=== PATIENT | female | born 1955 | race Caucasian/White ===

== ENCOUNTER 2017-04-28 16:38 | Inpatient (IN) | payer BC, OTHER ==
[~2017-04-28] VITALS: Ht 160 cm; Wt 71.2 kg
[~2017-04-28 16:38] MED LIST: ACHD5005 PO
--- OUTSIDE RECORDS SUMMARY | 2017-04-28 16:47 | XMS REPORT | Continuity of Care Document ---
Author Author [facility] Organization [facility] Address Unknown Phone Unavailable Allergies Active Description Code Type Severity Reaction Onset Reported/Identified Relationship to Patient Clinical Status Yes No Known Drug Allergies [id number] Drug Allergy Unknown N/ A 08/18/2012 Medications Problems Date Dx Coded Attending Type Code Diagnosis Diagnosed By 08/19/2012 Ot 813.44 08/19/2012 Ot 959.3 08/19/2012 Ot E000.8 08/19/2012 Ot E006.0 08/19/2012 Ot E006.2 08/19/2012 Ot E849.4 08/19/2012 Ot E885.1 07/27/2015 Ot 793.80 07/27/2015 Ot 793.80 07/27/2015 HERRERA STERLING DC Ot 722.4 07/27/2015 HERRERA STERLING DC Ot 722.51 09/05/2015 SANDY DO ETELVINA F Ot M17.11 09/05/2015 SANDY DO ETELVINA F Ot M25.461 09/05/2015 SANDY DO ETELVINA F Ot M25.561 12/20/2015 GLADIS GRIGGS MD Ot R06.02 SHORTNESS OF BREATH 12/20/2015 GLADIS GRIGGS MD Ot Z12.31 ENCNTR SCREEN MAMMOGRAM FOR MALIGNANT NE 12/20/2015 GLADIS GRIGGS MD Ot R06.02 SHORTNESS OF BREATH 12/20/2015 GLADIS GRIGGS MD Ot Z12.31 ENCNTR SCREEN MAMMOGRAM FOR MALIGNANT NE 12/25/2015 GLADIS GRIGGS MD Ot R06.02 SHORTNESS OF BREATH 12/25/2015 GLADIS GRIGGS MD Ot Z12.31 ENCNTR SCREEN MAMMOGRAM FOR MALIGNANT NE 02/01/2016 GLADIS GRIGGS MD Ot R06.02 SHORTNESS OF BREATH 02/01/2016 GLADIS GRIGGS MD, Ot Z12.31 ENCNTR SCREEN MAMMOGRAM FOR MALIGNANT NE Procedures Results Encounters ACCT No. Visit Date/Time Discharge Status Pt. Type Provider Facility Loc./Unit Complaint [id number] 12/19/2015 08:22:00 2015 23:59:59 CLS Outpatient GLADIS GRIGGS MD [facility] RAD SCREENING [id number] 07/27/2015 15:20:00 2015 23:59:59 CLS Outpatient ETELVINA DELGADO DO [facility] RAD [id number] 03/30/2015 16:32:00 2014 23:59:59 CLS Outpatient JANES CAMERON [facility] QUICK [id number] 03/30/2014 16:48:00 2013 23:59:59 CLS Outpatient HERRERA STERLING DC [facility] RAD [id number] 10/05/2012 08:43:00 2012 23:59:59 CLS Outpatient [id number] 04/28/2017 16:40:00 ACT Emergency DUDLEY SCHUMACHER APRN [facility] ER ABDOMINAL CRAMPING,BLOOD IN STOOL [id number] 07/27/2015 15:19:00 Document Registration [id number] 07/27/2015 15:19:00 Document Registration [id number] 08/18/2012 20:55:00 Document Registration [id number] 02/03/2011 15:17:00 Document Registration [id number] 07/30/2010 14:26:00 Document Registration
--- NOTE | 2017-04-28 16:54 | ED Abdominal Pain ---
General Chief Complaint: Abdominal/GI Problems Stated Complaint: ABDOMINAL CRAMPING,BLOOD IN STOOL Source of Information: Patient Exam Limitations: No Limitations History of Present Illness Time Seen By Provider: 16:52 Initial Comments To ER with reports of lower abdominal cramping midline and left lower. She's also had blood in her stools for the past 3 days. She's never had this before. No history of diverticulosis or diverticulitis. She's had nausea but no vomiting. She saw her primary care provider Dr. Griggs yesterday. Blood work. She states that her white blood cell count was "22". She was started on Zofran for nausea. Pain persists today. No fevers. Timing/Duration: 2-3 Days Severity/Quality: Cramping Location: LLQ, Suprapubic Radiation: No Radiation Activities at Onset: None Allergies and Home Medications Allergies Coded Allergies: No Known Drug Allergies (Unverified , 08/18/12) Home Medications Ciprofloxacin HCl 500 Mg Tablet, 500 MG PO BID for 7 Days, #14 Prescribed by: GLADIS GRIGGS on 04/30/17 0723 Cyclosporine 1 Each Droperette, 1 DROP OU BID, (Reported) Enalapril Maleate 20 Mg Tablet, 20 MG PO DAILY, (Reported) Ibuprofen 200 Mg Tablet, 800 MG PO TID PRN for PAIN-MILD, (Reported) TAKES 4 (200MG) TABLETS Metronidazole 500 Mg Tablet, 500 MG PO BID, #14 Prescribed by: GLADIS GRIGGS on 04/30/17 0723 Ondansetron HCl 4 Mg Tablet, 4 MG PO Q4H PRN for NAUSEA/VOMITING-1ST LINE, ( Reported) Triamcinolone Acet 15 Gm Cr, TOP BID PRN for DRY SKIN, (Reported) Review of Systems Constitutional: see HPI EENTM: No Symptoms Reported Respiratory: No Symptoms Reported Cardiovascular: No Symptoms Reported Gastrointestinal: See HPI, Abdominal Pain, Nausea, Rectal Bleeding Genitourinary: No Symptoms Reported Musculoskeletal: see HPI Skin: no symptoms reported Psychiatric/Neurological: No Symptoms Reported Endocrine: No Symptoms Reported Hematologic/Lymphatic: No Symptoms Reported Past Milvuvv-Ngchyy-Oiggou Hx Patient Social History Alcohol Use: Occasionally Uses Recreational Drug Use: No Smoking Status: Current Everyday Smoker Recent Foreign Travel: No Contact w/Someone Who Travel: No Immunizations Up To Date Tetanus Booster (TDap): More than 5yrs 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 System Hx 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 Disorders: No Sexually Transmitted Disease: No HIV/AIDS: No Female 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 Disorders: 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 Adverse Reaction to a Blood Tr: No Family Medical History Significant Family History: No Pertinent Family Hx Physical Exam Vital Signs VS - Last 72 Hours, by Label 04/28/17 16:42 Temp 99.9 Pulse 92 Resp 18 B/P (MAP) 154/49 Pulse Ox 96 O2 Delivery Room Air Capillary Refill : General Appearance: WD/WN, no apparent distress HEENT: PERRL/EOMI, normal ENT inspection Neck: non-tender, full range of motion Respiratory: no respiratory distress, no accessory muscle use Gastrointestinal: normal bowel sounds, soft, tenderness, other Neurologic/Psychiatric: alert, normal mood/affect, oriented x 3 Skin: normal color, warm/dry Progress/Results/Core Measures Results/Orders Lab Results Laboratory Tests Test 04/28/17 16:48 Range/Units White Blood Count 21.1 H 4.3-11.0 10^3/uL Red Blood Count 4.70 4.35-5.85 10^6/uL Hemoglobin 15.7 11.5-16.0 G/DL Hematocrit 47 35-52 % Mean Corpuscular Volume 99 80-99 FL Mean Corpuscular Hemoglobin 33 25-34 PG Mean Corpuscular Hemoglobin Concent 34 32-36 G/DL Red Cell Distribution Width 13.6 10.0-14.5 % Platelet Count 286 130-400 10^3/uL Mean Platelet Volume 9.8 7.4-10.4 FL Neutrophils (%) (Auto) 83 H 42-75 % Lymphocytes (%) (Auto) 11 L 12-44 % Monocytes (%) (Auto) 5 0-12 % Eosinophils (%) (Auto) 1 0-10 % Basophils (%) (Auto) 0 0-10 % Neutrophils # (Auto) 17.5 H 1.8-7.8 X 10^3 Lymphocytes # (Auto) 2.2 1.0-4.0 X 10^3 Monocytes # (Auto) 1.1 H 0.0-1.0 X 10^3 Eosinophils # (Auto) 0.2 0.0-0.3 10^3/uL Basophils # (Auto) 0.1 0.0-0.1 10^3/uL Neutrophils % (Manual) 84 % Lymphocytes % (Manual) 14 % Monocytes % (Manual) 1 % Eosinophils % (Manual) 1 % Basophils % (Manual) 0 % Band Neutrophils 0 % Blood Morphology Comment NORMAL Sodium Level 141 135-145 MMOL/L Potassium Level 3.8 3.6-5.0 MMOL/L Chloride Level 103 98-107 MMOL/L Carbon Dioxide Level 27 21-32 MMOL/L Anion Gap 11 5-14 MMOL/L Blood Urea Nitrogen 18 7-18 MG/DL Creatinine 0.80 0.60-1.30 MG/DL Estimat Glomerular Filtration Rate > 60 BUN/Creatinine Ratio 23 Glucose Level 109 H 70-105 MG/DL Calcium Level 9.4 8.5-10.1 MG/DL Total Bilirubin 0.8 0.1-1.0 MG/DL Aspartate Amino Transf (AST/SGOT) 14 5-34 U/L Alanine Aminotransferase (ALT/SGPT) 14 0-55 U/L Alkaline Phosphatase 74 40-136 U/L Total Protein 6.9 6.4-8.2 GM/DL Albumin 4.0 3.2-4.5 GM/DL My Orders Orders - DUDLEY SCHUMACHER APRN Cbc With Automated Diff (04/28/17 16:41) Comprehensive Metabolic Panel (04/28/17 16:41) Ct Abdomen/Pelvis W (04/28/17 16:41) Saline Lock/Iv-Start (04/28/17 16:41) Fentanyl Injection (Sublimaze Injection (04/28/17 17:00) Ondansetron Injection (Zofran Injectio (04/28/17 17:00) Ns Iv 1000 Ml (Sodium Chloride 0.9%) (04/28/17 17:00) Iohexol Injection (Omnipaque 350 Mg/Ml 1 (04/28/17 17:00) Ns (Ivpb) (Sodium Chloride 0.9% Ivpb Bag (04/28/17 17:00) Pharmacy Communication (Pharmacy Communi (04/28/17 16:54) Manual Differential (04/28/17 16:48) Medications Given in ED Vital Signs/I&O Vital Sign - Last 12Hours 04/28/17 16:42 Temp 99.9 Pulse 92 Resp 18 B/P (MAP) 154/49 Pulse Ox 96 O2 Delivery Room Air Departure Communication (Admissions) Time/Spoke to Admitting Phy: 19:32 Communication I discussed the case with Dr. Griggs. We will admit since she is nauseated and cannot tolerate oral antibiotics, IV fluids, Impression Impression: Primary Impression: Colitis Additional Impressions: Hematochezia Leukocytosis Disposition: ADMITTED INPATIENT Condition: Stable Admissions Decision to Admit Reason: Admit from ER (General) Decision to Admit/Date: Apr 28, 2017 Time/Decision to Admit Time: 19:32 Departure-Patient Inst. Referrals: GLADIS GRIGGS MD (PCP/Family) Primary Care Physician Scripts Metronidazole (Metronidazole) 500 Mg Tablet 500 MG PO BID, #14 TAB Prov: GLADIS GRIGGS MD 04/30/17 Ciprofloxacin HCl (Ciprofloxacin HCl) 500 Mg Tablet 500 MG PO BID for 7 Days, #14 TAB Prov: GLADIS GRIGGS MD 04/30/17 DUDLEY SCHUMACHER APRN Apr 28, 2017 16:54
[2017-04-28 16:58] LABS: BASOPHILS # (AUTO) 0.1 10^3/uL (0.0-0.1); BASOPHILS % (AUTO) 0 % (0-10); EOSINOPHILS # (AUTO) 0.2 10^3/uL (0.0-0.3); EOSINOPHILS % (AUTO) 1 % (0-10); LYMPHOCYTES # (AUTO) 2.2 X 10^3 (1.0-4.0); LYMPHOCYTES % (AUTO) 11 % (12-44); MEAN CORPUSCULAR HEMOGLOBIN 33 PG (25-34); MEAN CORPUSCULAR HGB CONC 34 G/DL (32-36); MEAN CORPUSCULAR VOLUME 99 FL (80-99); MEAN PLATELET VOLUME 9.8 FL (7.4-10.4); MONOCYTES # (AUTO) 1.1 X 10^3 (0.0-1.0); MONOCYTES % (AUTO) 5 % (0-12); NEUTROPHILS # (AUTO) 17.5 X 10^3 (1.8-7.8); NEUTROPHILS % (AUTO) 83 % (42-75); PLATELET COUNT 286 10^3/uL (130-400); RED CELL DISTRIBUTION WIDTH 13.6 % (10.0-14.5); WHITE BLOOD COUNT 21.1 10^3/uL (4.3-11.0)
[2017-04-28] MEDS ORDERED: ONDANSETRON 4 MG/2 ML (SDV) Z0FRAN IVP ONE (17:00)
[2017-04-28] MEDS ORDERED: fentaNYL INJECTION 100 MCG/2 ML AMP IVP ONE (17:00)
[2017-04-28] MEDS ORDERED: NS 100 ML (IVPB) BAG IV ONE (17:00)
[2017-04-28] MEDS ORDERED: NS IV 1000 ML 1,000 ML IV SCH (17:00)
[2017-04-28] MEDS ORDERED: IOHEXOL 350 MG/ML 100 ML (OMNIPAQUE 350) VIAL IV ONE (17:00)
[2017-04-28] MEDS ORDERED: ENAL20TA PO (17:05)
[2017-04-28] MEDS ORDERED: ONDA4TAB10 PO (17:05)
[2017-04-28 17:14] LABS: BAND NEUTROPHILS 0 %; BASOPHILS % (MANUAL) 0 %; EOSINOPHILS % (MANUAL) 1 %; LYMPHOCYTES % (MANUAL) 14 %; NEUTROPHILS % (MANUAL) 84 %
[2017-04-28 17:36] LABS: ALANINE AMINOTRANSFERASE 14 U/L (0-55); ANION GAP 11 MMOL/L (5-14); ASPARTATE AMINO TRANSFERASE 14 U/L (5-34); BILIRUBIN,TOTAL 0.8 MG/DL (0.1-1.0); BLOOD UREA NITROGEN 18 MG/DL (7-18); BUN/CREATININE RATIO 23; CALCIUM 9.4 MG/DL (8.5-10.1); CARBON DIOXIDE 27 MMOL/L (21-32); CHLORIDE 103 MMOL/L (98-107); GFR ESTIMATED > 60; GLUCOSE 109 MG/DL (70-105); POTASSIUM 3.8 MMOL/L (3.6-5.0); SODIUM 141 MMOL/L (135-145); TOTAL PROTEIN 6.9 GM/DL (6.4-8.2)
--- NOTE | 2017-04-28 19:11 | Diagnostic Imaging Report ---
PROCEDURE: CT abdomen and pelvis with contrast. TECHNIQUE: Multiple contiguous axial images were obtained through the abdomen and pelvis after administration of intravenous contrast. INDICATION: Abdominal cramping, nausea, vomiting, diarrhea and fever for 2 days, blood in the bowel, no history of cancer. COMPARISON STUDIES: None. FINDINGS: The lung bases are clear. Small cyst is present in the liver. There is questionable thickening of the distal esophagus versus a small collapsed hiatal hernia. Liver is slightly inhomogeneous consistent with some fatty infiltration. The pancreas, spleen, adrenal glands and kidneys appear normal. Sort of IUD is present within the uterus. Marked bowel wall thickening is seen in the distal two-thirds of the transverse colon and in the descending colon just to the sigmoid colon. Surrounding inflammatory changes are present. Small amount of ascites is present. Most of this is seen dependently within the pelvis. No free air or loculated fluid collections are present. There is no intramural air. IMPRESSION: 1. There is marked bowel wall thickening of the transverse and descending colon. Surrounding inflammation is present. Findings are consistent with nonspecific colitis. This could be infectious or inflammatory. 2. There is some asymmetric thickening at the gastroesophageal junction, possibly a mass versus collapsed hiatal hernia. Recommend elective endoscopy. 3. Metallic body is present in the uterus. This is probably a type of IUD which I am not familiar with. Dictated by: Dictated on workstation # [id number]
[2017-04-28] MEDS ORDERED: ACETAMINOPHEN 500 MG TAB (TYLENOL) PO ONE (19:45)
[2017-04-28 20:10] VITALS: BP 132/86
[2017-04-28] MEDS ORDERED: CATHETER FLUSH 10 ML SYR IV PRN (20:30)
[2017-04-28] MEDS: NS W/KCL 20 MEQ/L 1,000 ML IV SCH (20:52)
[2017-04-28] MEDS: CIPROFLOXACIN 400 MG/D5W 200 ML (PRE-MIX) IV SCH (20:53)
--- NOTE | 2017-04-28 21:03 | History & Physicial ---
History of Present Illness History of Present Illness Reason for visit/HPI 62-year-old female presents to [facility] emergency department during the late afternoon of April 28, 2017 with diarrhea and just not feeling well. Patient was seen the day before in the office and had complained of having some blood noted from her stool. She was given Zofran at that time and she reports throughout the next 24 hours a Zofran was not that helpful. She is very weak and is not taking in any solids or liquids over the past 12 hours. Date of Admission Apr 28, 2017 at 19:25 Date Seen by Provider: Apr 28, 2017 Time Seen by Provider: 21:00 I consulted on this patient on 04/28/17 21:01 Attending Physician Zna Griggs MD Admitting Physician Zan Griggs MD Consult Allergies and Home Medications Allergies Coded Allergies: No Known Drug Allergies (Unverified , 08/18/12) Home Medications Enalapril Maleate 20 Mg Tablet, (Reported) Hydrocodone Bit/Acetaminophen 1 Each Tablet, 1-2 EACH PO Q6H PRN, #24 Ref 0 Prescribed by: JASON HAINES on 08/19/12 0037 Ondansetron HCl 4 Mg Tablet, (Reported) Past Tyrxhqf-Nhfxfk-Jaoasa Hx Patient Social History Alcohol Use: Occasionally Uses Recreational Drug Use: No Smoking Status: Current Everyday Smoker Recent Foreign Travel: No Contact w/other who traveled: No Recent Infectious Disease Expo: No Immunizations Up To Date Tetanus Booster (TDap): More than 5yrs Surgeries Yes (l knee, I/D) Respiratory No Cardiovascular Yes Hypertension Neurological No 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 System Hx 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 Disorders: No Sexually Transmitted Disease: No HIV/AIDS: No 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 Gastrointestinal No Musculoskeletal No Endocrine History of Endocrine Disorders: No Cancer No Psychosocial History of Psychiatric Problem: No Blood Transfusions History of Blood Disorders: No Adverse Reaction to a Blood Tr: No Family Medical History Significant Family History: No Pertinent Family Hx Constitutional: see HPI Physical Exam Vital Signs Vital Sign - Last 12Hours 04/28/17 16:42 Temp 99.9 Pulse 92 Resp 18 B/P (MAP) 154/49 Pulse Ox 96 O2 Delivery Room Air Capillary Refill : Less Than 3 Seconds General Appearance: No Apparent Distress, Mild Distress Eyes: Bilateral Eye Normal Inspection HEENT: Moist Mucous Membranes Respiratory: Lungs Clear Cardiovascular: Regular Rate, Rhythm Gastrointestinal: Normal Bowel Sounds, No Organomegaly, No Pulsatile Mass, Non Tender, Soft Rectal: Deferred Back: Normal Inspection Skin: Normal Color Comments Laboratory Tests Test 04/28/17 16:48 Range/Units White Blood Count 21.1 H 4.3-11.0 10^3/uL Red Blood Count 4.70 4.35-5.85 10^6/uL Hemoglobin 15.7 11.5-16.0 G/DL Hematocrit 47 35-52 % Mean Corpuscular Volume 99 80-99 FL Mean Corpuscular Hemoglobin 33 25-34 PG Mean Corpuscular Hemoglobin Concent 34 32-36 G/DL Red Cell Distribution Width 13.6 10.0-14.5 % Platelet Count 286 130-400 10^3/uL Mean Platelet Volume 9.8 7.4-10.4 FL Neutrophils (%) (Auto) 83 H 42-75 % Lymphocytes (%) (Auto) 11 L 12-44 % Monocytes (%) (Auto) 5 0-12 % Eosinophils (%) (Auto) 1 0-10 % Basophils (%) (Auto) 0 0-10 % Neutrophils # (Auto) 17.5 H 1.8-7.8 X 10^3 Lymphocytes # (Auto) 2.2 1.0-4.0 X 10^3 Monocytes # (Auto) 1.1 H 0.0-1.0 X 10^3 Eosinophils # (Auto) 0.2 0.0-0.3 10^3/uL Basophils # (Auto) 0.1 0.0-0.1 10^3/uL Neutrophils % (Manual) 84 % Lymphocytes % (Manual) 14 % Monocytes % (Manual) 1 % Eosinophils % (Manual) 1 % Basophils % (Manual) 0 % Band Neutrophils 0 % Blood Morphology Comment NORMAL Sodium Level 141 135-145 MMOL/L Potassium Level 3.8 3.6-5.0 MMOL/L Chloride Level 103 98-107 MMOL/L Carbon Dioxide Level 27 21-32 MMOL/L Anion Gap 11 5-14 MMOL/L Blood Urea Nitrogen 18 7-18 MG/DL Creatinine 0.80 0.60-1.30 MG/DL Estimat Glomerular Filtration Rate > 60 BUN/Creatinine Ratio 23 Glucose Level 109 H 70-105 MG/DL Calcium Level 9.4 8.5-10.1 MG/DL Total Bilirubin 0.8 0.1-1.0 MG/DL Aspartate Amino Transf (AST/SGOT) 14 5-34 U/L Alanine Aminotransferase (ALT/SGPT) 14 0-55 U/L Alkaline Phosphatase 74 40-136 U/L Total Protein 6.9 6.4-8.2 GM/DL Albumin 4.0 3.2-4.5 GM/DL NAME: RICKY SIEGEL [facility] REC#: [id number] PT STATUS: REG ER : 1955 PHYSICIAN: DUDLEY SCHUMACHER [employer]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 TECHNIQUE: Multiple contiguous axial images were obtained through the abdomen and pelvis after administration of intravenous contrast. INDICATION: Abdominal cramping, nausea, vomiting, diarrhea and fever for 2 days, blood in the bowel, no history of cancer. COMPARISON STUDIES: None. FINDINGS: The lung bases are clear. Small cyst is present in the liver. There is questionable thickening of the distal esophagus versus a small collapsed hiatal hernia. Liver is slightly inhomogeneous consistent with some fatty infiltration. The pancreas, spleen, adrenal glands and kidneys appear normal. Sort of IUD is present within the uterus. Marked bowel wall thickening is seen in the distal two-thirds of the transverse colon and in the descending colon just to the sigmoid colon. Surrounding inflammatory changes are present. Small amount of ascites is present. Most of this is seen dependently within the pelvis. No free air or loculated fluid collections are present. There is no intramural air. IMPRESSION: 1. There is marked bowel wall thickening of the transverse and descending colon. Surrounding inflammation is present. Findings are consistent with nonspecific colitis. This could be infectious or inflammatory. 2. There is some asymmetric thickening at the gastroesophageal junction, possibly a mass versus collapsed hiatal hernia. Recommend elective endoscopy. 3. Metallic body is present in the uterus. This is probably a type of IUD which I am not familiar with. Dictated by: Dictated on workstation # [id number] Dict: 04/28/171899 Trans: 04/28/171915 Interpreted by: JAN WHITLEY MD Electronically signed by: JAN WHITLEY MD 04/28/176 Assessment/Plan Assessment and Plan 1. Dehydration -IV fluid rehydration and she has received bolus in the emergency department -Zofran to control nausea and vomiting 2. Inflammatory colitis -stool for C. difficile as well as stool culture -She has been initiated on IV Flagyl and IV Cipro 3. Hematochezia -Check CBC in the morning 4. Thickening or mass in the gastroesophageal region -This is to be further evaluated with most likely endoscopy Problems: Admission Diagnosis 1. Dehydration 2. Inflammatory colitis 3. Hematochezia ZAN GRIGGS MD Apr 28, 2017 21:03
[2017-04-28] MEDS: metroNIDAZOLE 500MG/100ML IVPB 100 ML IV SCH (22:11)
[2017-04-28] MEDS: fentaNYL INJECTION 100 MCG/2 ML AMP IV PRN (23:38)
[2017-04-29 00:36] VITALS: BP 116/72
[2017-04-29] MEDS: ONDANSETRON 4 MG/2 ML (SDV) Z0FRAN IV PRN ×4 (01:45→16:01)
[2017-04-29] MEDS: fentaNYL INJECTION 100 MCG/2 ML AMP IV PRN ×2 (01:47→06:10)
[2017-04-29] MEDS ORDERED: ACETAMINOPHEN 500 MG TAB (TYLENOL) PO PRN (02:00)
[2017-04-29 04:52] VITALS: BP 128/73
[2017-04-29] MEDS: NS W/KCL 20 MEQ/L 1,000 ML IV SCH ×3 (05:34→20:51)
[2017-04-29] MEDS: metroNIDAZOLE 500MG/100ML IVPB 100 ML IV SCH ×3 (05:34→21:56)
[2017-04-29 06:12] LABS: BASOPHILS # (AUTO) 0.1 10^3/uL (0.0-0.1); BASOPHILS % (AUTO) 0 % (0-10); EOSINOPHILS # (AUTO) 0.2 10^3/uL (0.0-0.3); EOSINOPHILS % (AUTO) 2 % (0-10); LYMPHOCYTES # (AUTO) 1.6 X 10^3 (1.0-4.0); LYMPHOCYTES % (AUTO) 11 % (12-44); MEAN CORPUSCULAR HEMOGLOBIN 34 PG (25-34); MEAN CORPUSCULAR HGB CONC 34 G/DL (32-36); MEAN CORPUSCULAR VOLUME 100 FL (80-99); MEAN PLATELET VOLUME 9.9 FL (7.4-10.4); MONOCYTES # (AUTO) 1.3 X 10^3 (0.0-1.0); MONOCYTES % (AUTO) 9 % (0-12); NEUTROPHILS # (AUTO) 11.7 X 10^3 (1.8-7.8); NEUTROPHILS % (AUTO) 79 % (42-75); PLATELET COUNT 225 10^3/uL (130-400); RED BLOOD COUNT 3.92 10^6/uL (4.35-5.85); RED CELL DISTRIBUTION WIDTH 13.4 % (10.0-14.5); WHITE BLOOD COUNT 14.9 10^3/uL (4.3-11.0)
--- NOTE | 2017-04-29 06:14 | Progress Note (SOAP) ---
Subjective Date Seen by Provider: Apr 29, 2017 Time Seen by Provider: 06:05 Subjective/Events-last exam patient does still complain of lower abdominal discomfort especially with pressure placed upon the abdomen. She did have loose stools again this morning. Objective Exam Vital Signs Date Time Temp Pulse Resp B/P (MAP) Pulse Ox O2 Delivery O2 Flow Rate FiO2 04/29/17 04:52 98.4 84 18 128/73 97 Room Air 04/29/17 00:36 99.0 86 18 116/72 95 Room Air 04/28/17 21:12 Room Air 04/28/17 20:10 98.8 95 18 132/86 97 04/28/17 19:58 85 16 99 04/28/17 16:42 99.9 92 18 154/49 96 Room Air Capillary Refill : Less Than 3 Seconds General Appearance: No Apparent Distress Gastrointestinal: soft, tenderness (is noted at the lower abdominal region both right and left) Results Lab Laboratory Tests 04/28/17 16:48: White Blood Count 21.1H, Red Blood Count 4.70, Hemoglobin 15.7, Hematocrit 47, Mean Corpuscular Volume 99, Mean Corpuscular Hemoglobin 33, Mean Corpuscular Hemoglobin Concent 34, Red Cell Distribution Width 13.6, Platelet Count 286, Mean Platelet Volume 9.8, Neutrophils (%) (Auto) 83H, Lymphocytes (%) (Auto) 11L , Monocytes (%) (Auto) 5, Eosinophils (%) (Auto) 1, Basophils (%) (Auto) 0, Neutrophils # (Auto) 17.5H, Lymphocytes # (Auto) 2.2, Monocytes # (Auto) 1.1H, Eosinophils # (Auto) 0.2, Basophils # (Auto) 0.1, Neutrophils % (Manual) 84, Lymphocytes % (Manual) 14, Monocytes % (Manual) 1, Eosinophils % (Manual) 1, Basophils % (Manual) 0, Band Neutrophils 0, Blood Morphology Comment NORMAL, Sodium Level 141, Potassium Level 3.8, Chloride Level 103, Carbon Dioxide Level 27, Anion Gap 11, Blood Urea Nitrogen 18, Creatinine 0.80, Estimat Glomerular Filtration Rate > 60, BUN/Creatinine Ratio 23, Glucose Level 109H, Calcium Level 9.4, Total Bilirubin 0.8, Aspartate Amino Transf (AST/SGOT) 14, Alanine Aminotransferase (ALT/SGPT) 14, Alkaline Phosphatase 74, Total Protein 6.9, Albumin 4.0 04/29/17 05:48: Assessment/Plan Assessment/Plan Assess & Plan/Chief Complaint 1. Dehydration -IV fluid rehydration and she has received bolus in the emergency department -Zofran to control nausea and vomiting 04/29 Zofran continues and she did report tolerating clear liquid diet 2. Inflammatory colitis -stool for C. difficile as well as stool culture -She has been initiated on IV Flagyl and IV Cipro 3. Hematochezia -Check CBC in the morning 4. Thickening or mass in the gastroesophageal region -This is to be further evaluated with most likely endoscopy 04/29 consult surgery Clinical Quality Measures DVT/VTE Risk/Contraindication: Risk Factor Score Per Nursin RFS Level Per Nursing on Admit: 4+=Very High GLADIS GRIGGS MD Apr 29, 2017 06:14
[2017-04-29 06:42] LABS: ALANINE AMINOTRANSFERASE 9 U/L (0-55); ALBUMIN 3.1 GM/DL (3.2-4.5); ANION GAP 8 MMOL/L (5-14); ASPARTATE AMINO TRANSFERASE 12 U/L (5-34); BLOOD UREA NITROGEN 13 MG/DL (7-18); BUN/CREATININE RATIO 19; CALCIUM 8.4 MG/DL (8.5-10.1); CARBON DIOXIDE 22 MMOL/L (21-32); CHLORIDE 110 MMOL/L (98-107); CREATININE SERUM 0.67 MG/DL (0.60-1.30); GFR ESTIMATED > 60; GLUCOSE 101 MG/DL (70-105); POTASSIUM 3.8 MMOL/L (3.6-5.0); SODIUM 140 MMOL/L (135-145); TOTAL PROTEIN 5.1 GM/DL (6.4-8.2)
[2017-04-29] MEDS ORDERED: INFLUENZA TRIvalent 2017-2018 0.5 ML/45 MCG SYR IM ONE (07:15)
[2017-04-29 08:00] VITALS: BP 118/65
[2017-04-29] MEDS ORDERED: TR1C15 TOP (08:25)
[2017-04-29] MEDS ORDERED: CYCL1DRO OU (08:25)
[2017-04-29] MEDS ORDERED: IBUP-30 PO (08:26)
[2017-04-29] MEDS: CIPROFLOXACIN 400 MG/D5W 200 ML (PRE-MIX) IV SCH ×2 (09:16→20:42)
[2017-04-29 12:00] VITALS: BP 119/69
[2017-04-29 16:00] VITALS: BP 138/82
[2017-04-29 20:52] VITALS: BP 142/67
[2017-04-30 00:28] VITALS: BP 121/67
[2017-04-30] MEDS: NS W/KCL 20 MEQ/L 1,000 ML IV SCH (01:19)
[2017-04-30] MEDS: metroNIDAZOLE 500MG/100ML IVPB 100 ML IV SCH ×2 (05:27→13:50)
[2017-04-30 05:56] LABS: BASOPHILS % (AUTO) 0 % (0-10); EOSINOPHILS # (AUTO) 0.4 10^3/uL (0.0-0.3); EOSINOPHILS % (AUTO) 4 % (0-10); LYMPHOCYTES # (AUTO) 1.8 X 10^3 (1.0-4.0); LYMPHOCYTES % (AUTO) 18 % (12-44); MEAN CORPUSCULAR HEMOGLOBIN 34 PG (25-34); MEAN CORPUSCULAR HGB CONC 34 G/DL (32-36); MEAN CORPUSCULAR VOLUME 100 FL (80-99); MONOCYTES # (AUTO) 0.8 X 10^3 (0.0-1.0); MONOCYTES % (AUTO) 8 % (0-12); NEUTROPHILS # (AUTO) 7.1 X 10^3 (1.8-7.8); NEUTROPHILS % (AUTO) 70 % (42-75); PLATELET COUNT 229 10^3/uL (130-400); RED BLOOD COUNT 3.63 10^6/uL (4.35-5.85); WHITE BLOOD COUNT 10.2 10^3/uL (4.3-11.0)
[2017-04-30 06:15] LABS: ANION GAP 7 MMOL/L (5-14); BLOOD UREA NITROGEN 4 MG/DL (7-18); BUN/CREATININE RATIO 6; CALCIUM 8.3 MG/DL (8.5-10.1); CARBON DIOXIDE 25 MMOL/L (21-32); CHLORIDE 108 MMOL/L (98-107); CREATININE SERUM 0.65 MG/DL (0.60-1.30); GFR ESTIMATED > 60; GLUCOSE 98 MG/DL (70-105); SODIUM 140 MMOL/L (135-145)
[2017-04-30] MEDS ORDERED: CIPR500T4 PO (07:23)
[2017-04-30] MEDS ORDERED: METR500T21 PO (07:23)
--- NOTE | 2017-04-30 07:25 | Discharge Inst-Simple/Standard ---
Discharge Inst-Standard Discharge Medications New, Converted or Re-Newed RX: Transmitted to Pharmacy ([facility]) Patient Instructions/Follow Up Plan of Care/Instructions/FU: FU with Dr Griggs on May 05 Activity as Tolerated: Yes Discharge Diet: Low Sodium Diet (and avoid dairy for 48 hours) Return to The Hospital For: worsening abdominal pain or worsening bleeding from bowel movements area GLADIS GRIGGS MD Apr 30, 2017 07:25
--- NOTE | 2017-04-30 07:27 | Discharge Summary ---
Diagnosis/Chief Complaint Date of Admission Apr 28, 2017 at 19:25 Date of Discharge April 30, 2017 Discharge Date: Apr 30, 2017 Discharge Time: 1000 Admission Diagnosis Admission Diagnosis 1. Dehydration 2. Inflammatory colitis 3. Hematochezia Discharge Diagnosis 1. Dehydration 2. Inflammatory colitis 3. Hematochezia 4. Gastroesophageal massetiology to be determined Reason Hospital Visit 62-year-old female presents to [facility] emergency department during the late afternoon of April 28, 2017 with diarrhea and just not feeling well. Patient was seen the day before in the office and had complained of having some blood noted from her stool. She was given Zofran at that time and she reports throughout the next 24 hours a Zofran was not that helpful. She is very weak and is not taking in any solids or liquids over the past 12 hours. Discharge Summary Hospital Course Hospital Course patient was admitted on April 28, 2017 during the evening and was placed on IV fluids after receiving fluid bolus in the emergency department for her dehydration. Upon admission her white blood cell count was noted be 21,000. She was also treated with Cipro and Flagyl intravenously due to the thickening of the transverse and descending colon findings by CT. She remained on Cipro and Flagyl during the course of her hospital stay. She had loose stools with sparse amount of blood present initially the first 24 hours and this resolved. She was also noted to have a white blood cell count decreased to 10.2 on the day of dismissal on April 30, 2017. Patient was tolerating regular diet with avoiding of dairy on the day of April 29, 2017. She is aware of the finding regarding her gastroesophageal region and this will be followed up outpatient with surgery most likely by endoscopy. She will follow-up in one week in office. For now she will stay off work through this Thursday and most likely return on Thursday. All questions answered in her medicines sent to her pharmacy of choice. Labs Laboratory Tests 04/28/17 16:48: White Blood Count 21.1H, Neutrophils (%) (Auto) 83H, Lymphocytes (%) (Auto) 11L , Neutrophils # (Auto) 17.5H, Monocytes # (Auto) 1.1H, Glucose Level 109H 04/29/17 05:48: White Blood Count 14.9H, Neutrophils (%) (Auto) 79H, Lymphocytes (%) (Auto) 11L , Neutrophils # (Auto) 11.7H, Monocytes # (Auto) 1.3H, Red Blood Count 3.92L, Mean Corpuscular Volume 100H, Chloride Level 110H, Calcium Level 8.4L, Total Protein 5.1L, Albumin 3.1L 04/30/17 05:40: Red Blood Count 3.63L, Mean Corpuscular Volume 100H, Chloride Level 108H, Calcium Level 8.3L, Eosinophils # (Auto) 0.4H, Blood Urea Nitrogen 4L Procedures None. Discharge Physical Examination Allergies: Coded Allergies: No Known Drug Allergies (Unverified , 08/18/12) Vitals & I&Os Vital Signs Date Time Temp Pulse Resp B/P (MAP) Pulse Ox O2 Delivery O2 Flow Rate FiO2 04/30/17 00:28 99.3 74 16 121/67 96 Room Air General Appearance: No Acute Distress HEENT: Mucous Memb Moist/[place] Respiratory: Clear to Auscultation Cardiovascular: Regular Rate Abdominal: Soft (with bowel sounds normal) Skin: No Rashes Discharge Home Medications Reviewed and agree with Discharge Medication list on patient's Discharge Instruction sheet Instructions to Patient/Family Please see electronic discharge instructions given to patient. Clinical Quality Measures DVT/VTE Risk/Contraindication: Risk Factor Score Per Nursin RFS Level Per Nursing on Admit: 4+=Very High GLADIS GRIGGS MD Apr 30, 2017 07:27
[2017-04-30 08:00] VITALS: BP 121/64
[2017-04-30] MEDS: fentaNYL INJECTION 100 MCG/2 ML AMP IV PRN ×2 (08:54→13:50)
[2017-04-30] MEDS: CIPROFLOXACIN 400 MG/D5W 200 ML (PRE-MIX) IV SCH (08:54)
[2017-04-30 15:45] VITALS: BP 120/60
== END 2017-04-30 15:45 | disposition home or self-care (01) | DRG 641 ==
LOC: EDUNIT# 16:38 → ER 16:40 → 4TH 19:25 → INTOOBSV 19:25 → UNDOADMOB 19:25 → OBSVTOIN 19:25 → 4TH 20:10 → UNDODISIN 04-30 15:45
PROVIDERS: ADMIT Family Medicine; ATTEND Family Medicine
DX: E86.0 Dehydration (principal); K52.9 Noninfective gastroenteritis and colitis, unspecified; K92.1 Melena; I10 Essential (primary) hypertension; F17.210 Nicotine dependence, cigarettes, uncomplicated
CPT/HCPCS: 36415; 74177; 80048; 80053; 85007; 85025; 85027; 87045; 87046; 87324; 87328; 87329; 87449; 96361; 96374; 96375

== ENCOUNTER 2017-06-02 05:42 | Outpatient (CLI) | payer BC ==
[~2017-06-02] VITALS: Ht 160 cm; Wt 71.2 kg
[~2017-06-02 05:42] MED LIST changes: +CIPR500T4 PO; +CYCL1DRO OU; +ENAL20TA PO; +IBUP-30 PO; +METR500T21 PO; +ONDA4TAB10 PO; +TR1C15 TOP
== END 2017-06-02 12:49 ==
LOC: PREOP 05:42
PROVIDERS: ATTEND Surgery
DX: Z01.818 Encounter for other preprocedural examination (principal); K21.9 Gastro-esophageal reflux disease without esophagitis; K92.1 Melena

== ENCOUNTER 2017-06-09 07:52 | Day surgery (SDC) | payer BC ==
[~2017-06-09] VITALS: Ht 160 cm; Wt 71.2 kg
--- OUTSIDE RECORDS SUMMARY | 2017-06-09 07:55 | XMS REPORT | Continuity of Care Document ---
Author Author [facility] Organization [facility] Address Unknown Phone Unavailable Allergies Active Description Code Type Severity Reaction Onset Reported/Identified Relationship to Patient Clinical Status Yes No Known Drug Allergies [id number] Drug Allergy Unknown N/A 08/18/2012 Medications There is no data. Problems Date Dx Coded Attending Type Code Diagnosis Diagnosed By 08/19/2012 Ot 813.44 FX LOW RADIUS W ULNA-CL 08/19/2012 Ot 959.3 ELB/FOREARM/ WRST INJ NOS 08/19/2012 Ot E000.8 OTHER EXTERNAL CAUSE STATUS 08/19/2012 Ot E006.0 ACTIVITIES INVOLVING ROLLER SKATING (INL 08/19/2012 Ot E006.2 ACTIVITIES INVOLVING GOLF 08/19/2012 Ot E849.4 ACCID IN RECREATION AREA 08/19/2012 Ot E885.1 ACCIDENT DUE TO ROLLERSKATE 07/27/2015 Ot 793.80 07/27/2015 Ot 793.80 07/27/2015 HERRERA STERLING DC Ot 722.4 07/27/2015 HERRERA STERLING DC Ot 722.51 09/05/2015 ETELVINA DELGADO DO Ot M17.11 09/05/2015 ETELVINA DELAGDO DO F Ot M25.461 09/05/2015 ETELVINA DELGADO DO Ot M25.561 12/20/2015 GLADIS GRIGGS MD Ot R06.02 SHORTNESS OF BREATH 12/20/2015 GLADIS GRIGGS MD Ot Z12.31 ENCNTR SCREEN MAMMOGRAM FOR MALIGNANT NE 12/20/2015 GLADIS GRIGGS MD Ot R06.02 SHORTNESS OF BREATH 12/20/2015 GLADIS GRIGGS MD Ot Z12.31 ENCNTR SCREEN MAMMOGRAM FOR MALIGNANT NE 12/25/2015 GLADIS GRIGGS MD Ot R06.02 SHORTNESS OF BREATH 12/25/2015 ANSON MD, GLADIS J Ot Z12.31 ENCNTR SCREEN MAMMOGRAM FOR MALIGNANT NE 02/01/2016 GLADIS GRIGGS MD Ot R06.02 SHORTNESS OF BREATH 02/01/2016 GLADIS GRIGGS MD, Ot Z12.31 ENCNTR SCREEN MAMMOGRAM FOR MALIGNANT NE 04/28/2017 LONG DC, HERRERA S Ot 722.4 CERVICAL DISC DEGEN 04/28/2017 LONG DC, HERRERA S Ot 722.51 THORACIC DISC DEGEN 04/28/2017 SANDY DO, ETELVINA F Ot M17.11 UNILATERAL PRIMARY OSTEOARTHRITIS, RIGHT 04/28/2017 SANDY DO, ETELVINA F Ot M25.461 EFFUSION, RIGHT KNEE 04/28/2017 SANDY DO, ETELVINA F Ot M25.561 PAIN IN RIGHT KNEE 04/28/2017 GLADIS GRIGGS MD Ot R06.02 SHORTNESS OF BREATH 04/28/2017 GLADIS GRIGGS MD, Ot Z12.31 ENCNTR SCREEN MAMMOGRAM FOR MALIGNANT NE 04/29/2017 LONG DC, HERRERA S Ot 722.4 CERVICAL DISC DEGEN 04/29/2017 LONG DC, HERRERA S Ot 722.51 THORACIC DISC DEGEN 04/29/2017 SANDY DO, ETELVINA F Ot M17.11 UNILATERAL PRIMARY OSTEOARTHRITIS, RIGHT 04/29/2017 SANDY DO, ETELVINA F Ot M25.461 EFFUSION, RIGHT KNEE 04/29/2017 SANDY DO, ETELVINA F Ot M25.561 PAIN IN RIGHT KNEE 04/29/2017 GLADIS GRIGGS MD Ot R06.02 SHORTNESS OF BREATH 04/29/2017 GLADIS GRIGGS MD, Ot Z12.31 ENCNTR SCREEN MAMMOGRAM FOR MALIGNANT NE 04/30/2017 GLADIS GRIGGS MD Ot E86.0 DEHYDRATION 04/30/2017 GLADIS GRIGGS MD Ot F17.210 NICOTINE DEPENDENCE, CIGARETTES, UNCOMPL 04/30/2017 GLADIS GRIGGS MD Ot I10 ESSENTIAL (PRIMARY) HYPERTENSION 04/30/2017 GLADIS GRIGGS MD, Ot K52.9 NONINFECTIVE GASTROENTERITIS AND COLITIS 04/30/2017 GLADIS GRIGGS MD Ot K92.1 MELENA Procedures There is no data. Results Test Result Range Complete blood count (CBC) with automated white blood cell (WBC) differential - 04/28/17 16:48 Blood leukocytes automated count (number/volume) 21.1 10*3/uL 4.3-11.0 Blood erythrocytes automated count (number/volume) 4.70 10*6/uL 4.35-5.85 Venous blood hemoglobin measurement (mass/volume) 15.7 g/dL 11.5-16.0 Blood hematocrit (volume fraction) 47 % 35-52 Automated erythrocyte mean corpuscular volume 99 [foz_us] 80-99 Automated erythrocyte mean corpuscular hemoglobin (mass per erythrocyte) 33 pg 25-34 Automated erythrocyte mean corpuscular hemoglobin concentration measurement ( mass/volume) 34 g/dL 32-36 Automated erythrocyte distribution width ratio 13.6 % 10.0-14.5 Automated blood platelet count (count/volume) 286 10*3/uL 130-400 Automated blood platelet mean volume measurement 9.8 [foz_us] 7.4-10.4 Automated blood neutrophils/100 leukocytes 83 % 42-75 Automated blood lymphocytes/100 leukocytes 11 % 12-44 Blood monocytes/100 leukocytes 5 % 0-12 Automated blood eosinophils/100 leukocytes 1 % 0-10 Automated blood basophils/100 leukocytes 0 % 0-10 Blood neutrophils automated count (number/volume) 17.5 10*3 1.8-7.8 Blood lymphocytes automated count (number/volume) 2.2 10*3 1.0-4.0 Blood monocytes automated count (number/volume) 1.1 10*3 0.0-1.0 Automated eosinophil count 0.2 10*3/uL 0.0-0.3 Automated blood basophil count (count/volume) 0.1 10*3/uL 0.0-0.1 Blood manual differential performed detection - 04/28/17 16:48 Blood monocytes/100 leukocytes 1 % NRG Manual blood segmented neutrophils/100 leukocytes 84 % NRG Blood band neutrophils/100 leukocytes 0 % NRG Manual blood lymphocytes/100 leukocytes 14 % NRG Manual eosinophils/100 leukocytes in nose 1 % NRG Manual blood basophils/100 leukocytes 0 % NRG Blood erythrocyte morphology finding identification [facility] Comprehensive metabolic panel - 04/28/17 16:48 Serum or plasma sodium measurement (moles/volume) 141 mmol/L 135-145 Serum or plasma potassium measurement (moles/volume) 3.8 mmol/L 3.6-5.0 Serum or plasma chloride measurement (moles/volume) 103 mmol/L 98-107 Carbon dioxide 27 mmol/L 21-32 Serum or plasma anion gap determination (moles/volume) 11 mmol/L 5-14 Serum or plasma urea nitrogen measurement (mass/volume) 18 mg/dL 7-18 Serum or plasma creatinine measurement (mass/volume) 0.80 mg/dL 0.60-1.30 Serum or plasma urea nitrogen/creatinine mass ratio 23 NRG Serum or plasma creatinine measurement with calculation of estimated glomerular filtration rate > NRG Serum or plasma glucose measurement (mass/volume) 109 mg/dL 70-105 Serum or plasma calcium measurement (mass/volume) 9.4 mg/dL 8.5-10.1 Serum or plasma total bilirubin measurement (mass/volume) 0.8 mg/dL 0.1-1.0 Serum or plasma alkaline phosphatase measurement (enzymatic activity/volume) 74 U/L 40-136 Serum or plasma aspartate aminotransferase measurement (enzymatic activity/ volume) 14 U/L 5-34 Serum or plasma alanine aminotransferase measurement (enzymatic activity/volume ) 14 U/L 0-55 Serum or plasma protein measurement (mass/volume) 6.9 g/dL 6.4-8.2 Serum or plasma albumin measurement (mass/volume) 4.0 g/dL 3.2-4.5 Complete blood count (CBC) with automated white blood cell (WBC) differential - 04/29/17 05:48 Blood leukocytes automated count (number/volume) 14.9 10*3/uL 4.3-11.0 Blood erythrocytes automated count (number/volume) 3.92 10*6/uL 4.35-5.85 Venous blood hemoglobin measurement (mass/volume) 13.2 g/dL 11.5-16.0 Blood hematocrit (volume fraction) 39 % 35-52 Automated erythrocyte mean corpuscular volume 100 [foz_us] 80-99 Automated erythrocyte mean corpuscular hemoglobin (mass per erythrocyte) 34 pg 25-34 Automated erythrocyte mean corpuscular hemoglobin concentration measurement ( mass/volume) 34 g/dL 32-36 Automated erythrocyte distribution width ratio 13.4 % 10.0-14.5 Automated blood platelet count (count/volume) 225 10*3/uL 130-400 Automated blood platelet mean volume measurement 9.9 [foz_us] 7.4-10.4 Automated blood neutrophils/100 leukocytes 79 % 42-75 Automated blood lymphocytes/100 leukocytes 11 % 12-44 Blood monocytes/100 leukocytes 9 % 0-12 Automated blood eosinophils/100 leukocytes 2 % 0-10 Automated blood basophils/100 leukocytes 0 % 0-10 Blood neutrophils automated count (number/volume) 11.7 10*3 1.8-7.8 Blood lymphocytes automated count (number/volume) 1.6 10*3 1.0-4.0 Blood monocytes automated count (number/volume) 1.3 10*3 0.0-1.0 Automated eosinophil count 0.2 10*3/uL 0.0-0.3 Automated blood basophil count (count/volume) 0.1 10*3/uL 0.0-0.1 Comprehensive metabolic panel - 04/29/17 05:48 Serum or plasma sodium measurement (moles/volume) 140 mmol/L 135-145 Serum or plasma potassium measurement (moles/volume) 3.8 mmol/L 3.6-5.0 Serum or plasma chloride measurement (moles/volume) 110 mmol/L 98-107 Carbon dioxide 22 mmol/L 21-32 Serum or plasma anion gap determination (moles/volume) 8 mmol/L 5-14 Serum or plasma urea nitrogen measurement (mass/volume) 13 mg/dL 7-18 Serum or plasma creatinine measurement (mass/volume) 0.67 mg/dL 0.60-1.30 Serum or plasma urea nitrogen/creatinine mass ratio 19 NRG Serum or plasma creatinine measurement with calculation of estimated glomerular filtration rate > NRG Serum or plasma glucose measurement (mass/volume) 101 mg/dL 70-105 Serum or plasma calcium measurement (mass/volume) 8.4 mg/dL 8.5-10.1 Serum or plasma total bilirubin measurement (mass/volume) 1.0 mg/dL 0.1-1.0 Serum or plasma alkaline phosphatase measurement (enzymatic activity/volume) 57 U/L 40-136 Serum or plasma aspartate aminotransferase measurement (enzymatic activity/ volume) 12 U/L 5-34 Serum or plasma alanine aminotransferase measurement (enzymatic activity/volume ) 9 U/L 0-55 Serum or plasma protein measurement (mass/volume) 5.1 g/dL 6.4-8.2 Serum or plasma albumin measurement (mass/volume) 3.1 g/dL 3.2-4.5 C DIFFICILE AG + TOXIN A/B. - 04/29/17 14:00 RESULTS NEGATIVE FOR ANTIGEN AND TOXIN A/B NRG Stool bacteria identification by culture - 04/29/17 14:00 NEGATIVE FOR 0157 NEGATIVE FOR E COLI 0157 NRG NEGATIVE FOR CAMPY NEGATIVE FOR CAMPYLOBACTER NRG NEGATIVE FOR SHIGELLA NEGATIVE FOR SHIGELLA NRG NEGATIVE FOR SALMONELLA NEGATIVE FOR SALMONELLA NRG Complete blood count (CBC) with automated white blood cell (WBC) differential - 04/30/17 05:40 Blood leukocytes automated count (number/volume) 10.2 10*3/uL 4.3-11.0 Blood erythrocytes automated count (number/volume) 3.63 10*6/uL 4.35-5.85 Venous blood hemoglobin measurement (mass/volume) 12.2 g/dL 11.5-16.0 Blood hematocrit (volume fraction) 36 % 35-52 Automated erythrocyte mean corpuscular volume 100 [foz_us] 80-99 Automated erythrocyte mean corpuscular hemoglobin (mass per erythrocyte) 34 pg 25-34 Automated erythrocyte mean corpuscular hemoglobin concentration measurement ( mass/volume) 34 g/dL 32-36 Automated erythrocyte distribution width ratio 13.0 % 10.0-14.5 Automated blood platelet count (count/volume) 229 10*3/uL 130-400 Automated blood platelet mean volume measurement 10.0 [foz_us] 7.4-10.4 Automated blood neutrophils/100 leukocytes 70 % 42-75 Automated blood lymphocytes/100 leukocytes 18 % 12-44 Blood monocytes/100 leukocytes 8 % 0-12 Automated blood eosinophils/100 leukocytes 4 % 0-10 Automated blood basophils/100 leukocytes 0 % 0-10 Blood neutrophils automated count (number/volume) 7.1 10*3 1.8-7.8 Blood lymphocytes automated count (number/volume) 1.8 10*3 1.0-4.0 Blood monocytes automated count (number/volume) 0.8 10*3 0.0-1.0 Automated eosinophil count 0.4 10*3/uL 0.0-0.3 Automated blood basophil count (count/volume) 0.0 10*3/uL 0.0-0.1 Whole blood basic metabolic panel - 04/30/17 05:40 Serum or plasma sodium measurement (moles/volume) 140 mmol/L 135-145 Serum or plasma potassium measurement (moles/volume) 4.0 mmol/L 3.6-5.0 Serum or plasma chloride measurement (moles/volume) 108 mmol/L 98-107 Carbon dioxide 25 mmol/L 21-32 Serum or plasma anion gap determination (moles/volume) 7 mmol/L 5-14 Serum or plasma urea nitrogen measurement (mass/volume) 4 mg/dL 7-18 Serum or plasma creatinine measurement (mass/volume) 0.65 mg/dL 0.60-1.30 Serum or plasma urea nitrogen/creatinine mass ratio 6 NRG Serum or plasma creatinine measurement with calculation of estimated glomerular filtration rate > NRG Serum or plasma glucose measurement (mass/volume) 98 mg/dL 70-105 Serum or plasma calcium measurement (mass/volume) 8.3 mg/dL 8.5-10.1 Encounters ACCT No. Visit Date/Time Discharge Status Pt. Type Provider Facility Loc./Unit Complaint [id number] 04/28/2017 20:10:00 04/30/2017 15:45:00 DIS Inpatient GLADIS GRIGGS MD [facility] 4TH COLITIS;LEUKOCYTOSIS, HEMATOCHEZIA [id number] 12/19/2015 08:22:00 12/19/2015 23:59:59 CLS Outpatient GLADIS GRIGGS MD [facility] RAD SCREENING [id number] 07/27/2015 15:20:00 07/27/2015 23:59:59 CLS Outpatient ETELVINA DELGADO DO [facility] RAD RT KNEE MENISCUS TEAR , PRIMARY OA [id number] 03/30/2015 16:32:00 03/30/2015 23:59:59 CLS Outpatient JANES CAMERON [facility] QUICK [id number] 03/30/2014 16:48:00 03/30/2014 23:59:59 CLS Outpatient HERRERA STERLING DC [facility] RAD NECK AND RT UPPER BACK PAIN [id number] 10/05/2012 08:43:00 10/05/2012 23:59:59 CLS Outpatient [id number] 06/09/2017 10:30:00 PEN Preadmit STEPHANY TELLEZ DO [facility] ENDO ABNORMAL CT SCAN/GERD/BLOOD IN STOOLS [id number] 07/27/2015 15:19:00 Document Registration [id number] 07/27/2015 15:19:00 Document Registration [id number] 08/18/2012 20:55:00 Document Registration [id number] 02/03/2011 15:17:00 Document Registration [id number] 07/30/2010 14:26:00 Document Registration
[2017-06-09] MEDS ORDERED: LACTATED RINGERS 1,000 ML IV ONE (07:57)
--- NOTE | 2017-06-09 08:02 | Progress Note-Pre Operative ---
Pre-Operative Progress Note H&P Reviewed The H&P was reviewed, patient examined and no changes noted. Date Seen by Provider: Jun 09, 2017 Time Seen by Provider: 08:01 Date H&P Reviewed: Jun 09, 2017 Time H&P Reviewed: 08:01 Pre-Operative Diagnosis: hx colitis, gerd, hematochezia STEPHANY TELLEZ DO Jun 09, 2017 08:02
[2017-06-09] MEDS ORDERED: MIDAZOLAM 2 MG/2 ML (VERSED) VIAL ONE (08:20)
[2017-06-09] MEDS ORDERED: PROPOFOL INJECTION 50 ML IV ONE (08:20)
[2017-06-09] MEDS ORDERED: LACTATED RINGERS 1,000 ML IV STA (08:49)
[2017-06-09 08:57] VITALS: BP 142/86
[2017-06-09] MEDS ORDERED: HURRICAINE EXT TUBE (BENZOCAINE) XX PRN (09:00)
--- NOTE | 2017-06-09 09:11 | Progress Note-Post Operative ---
Post-Operative Progess Note Surgeon (s)/[facility] ([facility]) Surgeon STEPHANY TELLEZ DO [facility]: na Pre-Operative Diagnosis hx colitis, gerd, hematochezia Post-Operative Diagnosis gastritis, hiatal hernia reflux esophagitis, colitis descending colon, rectosigmoid polyps, rectal polyp Procedure & Operative Findings Date of Procedure 06/09/17 Procedure Performed/Findings egd c biopsies, colonoscopy with cold biopsies descending colon, hot bx polypectomy x 5 Anesthesia Type per nipple machine operator Estimated Blood Loss Estimated blood loss (mL): none Specimens/Packing Specimens Removed antrum, body, ge junction, descending colon r/o colitis, recto sigmoid polyps x 4 and rectal polyp STEPHANY TELLEZ DO Jun 09, 2017 09:11
[2017-06-09] MEDS ORDERED: PANT40TA2 PO (09:13)
--- NOTE | 2017-06-09 09:14 | Discharge Inst-Simple/Standard ---
Discharge Inst-Standard Discharge Medications New, Converted or Re-Newed RX: Transmitted to Pharmacy Patient Instructions/Follow Up Plan of Care/Instructions/FU: 2 weeks Светлана Activity as Tolerated: Yes Discharge Diet: Regular Diet (high fiber) STEPHANY TELLEZ DO Jun 09, 2017 09:14
[2017-06-09 09:18] VITALS: BP 143/83
[2017-06-09 09:50] VITALS: BP 126/78
[2017-06-09 10:05] VITALS: BP 126/78
--- NOTE | 2017-06-09 19:27 | OPERATIVE REPORT ---
DATE OF SERVICE: PREOPERATIVE DIAGNOSES: History of colitis, gastroesophageal reflux disease, CT changes. POSTOPERATIVE DIAGNOSES: Gastritis, hiatal hernia, reflux esophagitis, colitis of the descending colon, rectosigmoid polyps and rectal polyp. PROCEDURE: EGD with biopsies and colonoscopy with cold biopsies descending colon and hot biopsy polypectomy times five. SURGEON: Stephany Sotomayor D.O. ANESTHESIA: Per TECHNICAL ENGINEER. ESTIMATED BLOOD LOSS: None. COMPLICATIONS: None. SPECIMENS: Antrum, body, GE junction, descending colon, rule out colitis rectosigmoid polyps x4 and rectal polyp x1. INDICATIONS: The patient is a 62-year-old female who had some bleeding from her colon. She was admitted to the hospital. She had colitis of the transverse and descending colon. She also had CT changes at the GE junction by CT scan. She was recommended to have EGD and colonoscopy for further evaluation. She understands risks and benefits of procedure and wished to proceed with procedure. Consent was signed in the chart. PROCEDURE IN DETAIL: The patient was taken to the endoscopy suite, placed in left lateral recumbent position. Timeout was performed. Scope was inserted in mouth, down into esophagus, stomach and into the duodenum without difficulty. There were no polyps, mass or ulcerations within the duodenum. The scope was slowly retracted back into the stomach which was further insufflated. There are some areas of inflammation with some slight gastritis. Biopsy of the antrum and of the body were obtained. In the body there may be a questionable healing ulcer. Scope was also retroflexed noting a hiatal hernia. No other pathology noted. Scope was returned to its normal position, slowly withdrawn back into the distal esophagus and GE junction noting some slight reflux esophagitis. Biopsy of the GE junction was obtained. Scope was then slowly retracted back noting no other pathology. Digital rectal exam was performed and there were no palpable polyps, masses or ulcerations. Scope was inserted in the rectum and advanced all the way to the cecum with minimal difficulty. Prep was adequate. The ileocecal valve was intubated and the ileum had normal appearance. The scope was retracted back into the colon. There were no polyps, masses or ulcerations within the cecum, ascending and transverse colon. In the descending colon, there are some erythematous changes that are consistent with colitis, some cold biopsies were obtained. The scope was continued slowly retracted back. There were no polyps, masses or ulcerations. The majority of the sigmoid colon except for the rectosigmoid area where there are some small polyps hot biopsy polypectomy was performed. Scope was also slowly retracted back and also retroflexed noting one small polyp in the rectum and hot biopsy polypectomy was performed. Scope was returned to its normal position, slowly withdrawn until completely removed. The patient tolerated procedure well without any complications. She was taken to recovery room in stable condition. RECOMMENDATIONS: The patient was started on Protonix 40 mg daily. We will follow up on the biopsies in 2 weeks. Due to the number of polyps, would recommend repeat colonoscopy in one year. If she has any problems prior to that, she should be reevaluated at that time. Job ID: [id number] DocumentID: [id number] Dictated Date: 06/09/2017 09:22:01 Narcotics And/Or Vice Detective Date: 06/09/2017 14:10:59 Dictated By: STEPHANY SOTOMAYOR DO
== END 2017-06-09 10:05 | disposition home or self-care (01) ==
LOC: ENDO 07:52
PROVIDERS: ATTEND Surgery
DX: K52.9 Noninfective gastroenteritis and colitis, unspecified (principal); K63.5 Polyp of colon; K62.1 Rectal polyp; K21.0 Gastro-esophageal reflux disease with esophagitis; K44.9 Diaphragmatic hernia without obstruction or gangrene; K29.70 Gastritis, unspecified, without bleeding; I10 Essential (primary) hypertension; F17.210 Nicotine dependence, cigarettes, uncomplicated; Z79.899 Other long term (current) drug therapy

== ENCOUNTER → 2017-09-08 | Outpatient (CLI) | payer BC ==
[~2017-09-08] MED LIST changes: +PANT40TA2 PO
--- NOTE | 2017-09-08 10:37 | Diagnostic Imaging Report ---
INDICATION: Heel pain. COMPARISON: None. FINDINGS: Two views of the right heel are obtained. No acute fracture, malalignment or osseous destructive process is seen. There is moderate enthesophyte formation at the insertion of the Achilles tendon on the os calcis. IMPRESSION: There is enthesopathy at the insertion of the Achilles tendon. No additional abnormalities demonstrated. Dictated by: Dictated on workstation # [id number]
== END ==
LOC: RAD 10:01
PROVIDERS: ATTEND Family Medicine
DX: M76.61 Achilles tendinitis, right leg (principal)
CPT/HCPCS: 73650

== ENCOUNTER 2019-11-24 05:30 | Outpatient (RCR) | payer MEDICARE ==
[~2019-11-24] VITALS: Ht 160 cm; Wt 76.3 kg
[~2019-11-24 05:30] MED LIST changes: +ATOR40TA70 PO; +CHOL100048 PO; +LISI1TAB26 PO; +MELO15TA39 PO; +METR-145 PO; -METR500T21 PO; +MULT-1136 PO; +ONDA-105 PO; -ONDA4TAB10 PO; +PANT40TA3 PO; +VITA100033 PO; +[UNRECOGNIZED DRUG - OTHER] PO
== END 2019-11-24 14:43 | disposition home or self-care (01) ==
LOC: PREOP 05:30
PROVIDERS: ATTEND Obstetrics & Gynecology
DX: Z01.818 Encounter for other preprocedural examination (principal); Z11.59 Encounter for screening for other viral diseases
CPT/HCPCS: 87635

== ENCOUNTER 2019-11-28 08:29 | Day surgery (SDC) | payer BC, MEDICARE ==
[2019-11-28] VITALS (13 sets, daily range): BP systolic 113–150; BP diastolic 7–106
[~2019-11-28] VITALS: Ht 160 cm; Wt 76.3 kg
[2019-11-28] MEDS: LACTATED RINGERS 1,000 ML IV PRN ×2 (08:48→11:22)
--- NOTE | 2019-11-28 09:13 | Progress Note-Pre Operative ---
Pre-Operative Progress Note H&P Reviewed The H&P was reviewed, patient examined and no changes noted. Date Seen by Provider: Nov 28, 2019 Time Seen by Provider: 09:00 Date H&P Reviewed: Nov 28, 2019 Time H&P Reviewed: 09:00 Pre-Operative Diagnosis: Retained IUD, PMB. RHONA BROOKE DO Nov 28, 2019 09:13
[2019-11-28 09:19] LABS: BASOPHILS # (AUTO) 0.1 10^3/uL (0.0-0.1); BASOPHILS % (AUTO) 1 % (0-10); EOSINOPHILS # (AUTO) 0.5 10^3/uL (0.0-0.3); EOSINOPHILS % (AUTO) 6 % (0-10); HEMATOCRIT 46 % (35-52); HEMOGLOBIN 15.7 G/DL (11.5-16.0); LYMPHOCYTES % (AUTO) 26 % (12-44); MEAN CORPUSCULAR HEMOGLOBIN 34 PG (25-34); MEAN CORPUSCULAR HGB CONC 34 G/DL (32-36); MEAN CORPUSCULAR VOLUME 97 FL (80-99); MEAN PLATELET VOLUME 10.1 FL (7.4-10.4); MONOCYTES # (AUTO) 0.5 X 10^3 (0.0-1.0); MONOCYTES % (AUTO) 6 % (0-12); NEUTROPHILS # (AUTO) 4.7 X 10^3 (1.8-7.8); NEUTROPHILS % (AUTO) 61 % (42-75); PLATELET COUNT 313 10^3/uL (130-400); RED CELL DISTRIBUTION WIDTH 13.6 % (10.0-14.5); WHITE BLOOD COUNT 7.6 10^3/uL (4.3-11.0)
[2019-11-28] MEDS ORDERED: ONDANSETRON 4 MG/2 ML (SDV) Z0FRAN ONE (09:22)
[2019-11-28] MEDS ORDERED: SEVOFLURANE (ULTANE) 15 ML INHAL SOLN ONE (09:22)
[2019-11-28] MEDS ORDERED: proPOfol 200 MG/20 ML (DIPRIVAN) VIAL IV ONE (09:22)
[2019-11-28] MEDS ORDERED: DEXAMETHASONE 10 MG/ML (DECADRON) 1 ML VIAL ONE (09:22)
[2019-11-28] MEDS ORDERED: fentaNYL INJECTION 100 MCG/2 ML AMP ONE (09:22)
[2019-11-28] MEDS ORDERED: LIDOCAINE PF 2% 5 ML (XYLOCAINE) VIAL ONE (09:22)
[2019-11-28] MEDS ORDERED: MIDAZOLAM 2 MG/2 ML (VERSED) VIAL ONE (09:23)
[2019-11-28] MEDS ORDERED: BUP/EPI 0.5% 1:200,000 (SENSORCAINE) 30 ML VIAL ONE (09:34)
[2019-11-28] MEDS ORDERED: BUPIVACAINE 0.25% 30 ML (SENSORCAINE) VIAL ONE (09:34)
[2019-11-28] MEDS ORDERED: DOXYCYCLINE INJECTION 100 MG in NS (IVPB) 100 ML IV ONE (10:30)
[2019-11-28] MEDS ORDERED: KETOROLAC 30 MG/ML VIAL ONE (10:41)
[2019-11-28] MEDS ORDERED: morphine INJ 10 MG/ML 1ML (SYR OR VIAL) IVP ONE (10:45)
[2019-11-28] MEDS ORDERED: ONDANSETRON 4 MG/2 ML (SDV) Z0FRAN IVP PRN (10:45)
[2019-11-28] MEDS ORDERED: IBUP-1773 PO (10:46)
--- NOTE | 2019-11-28 10:52 | Discharge Inst-Women's Service ---
Discharge Inst-Women's Serv Depart Medication/Instructions New, Converted or Re-Newed RX: RX on Chart Problems Reviewed?: Yes Consults/Follow Up Additional Follow Up: Yes Orders/Referrals Dr. Brooke in 2-3 weeks. Activity Activity: Activity as Tolerated Driving Instructions: No Driving for 1 Week NO SMOKING: NO SMOKING Nothing Inside Vagina: No Douching, No [employer], No Tampons Diet Discharge Diet: No Restrictions Symptoms to Report to : Bleeding Excessive, Pain Increased, Fever Over 101 Degrees F, Vaginal Bleeding Increase, Questions/Concerns For Any Problems or Questions: Contact Your Physician RHONA BROOKE DO Nov 28, 2019 10:52
[2019-11-28] MEDS ORDERED: DOXY100C42 PO (11:13)
--- NOTE | 2019-11-28 12:55 | Anesthesia-General Post-Op ---
General Patient Condition Mental Status/LOC: Same as Preop Cardiovascular: Satisfactory Nausea/Vomiting: Absent Respiratory: Satisfactory Pain: Controlled Complications: Absent Post Op Complications Complications None Follow Up Care/Instructions Patient Instructions None needed. Anesthesia/Patient Condition Patient Condition Patient was seen after the procedure and she was doing well, no complaints, stable vital signs, no apparent adverse anesthesia problems. JES MELENDEZ DO Nov 28, 2019 12:55
--- NOTE | 2019-11-28 16:15 | OPERATIVE REPORT ---
DATE OF SERVICE: PREOPERATIVE DIAGNOSES: 1. A 64-year-old female with postmenopausal bleeding. 2. Retained IUD greater than 40 years. POSTOPERATIVE DIAGNOSES: 1. A 64-year-old female with postmenopausal bleeding. 2. Retained IUD greater than 40 years. PROCEDURE: Removal of IUD under anesthesia, Pap smear and dilatation and curettage. SURGEON: Ricardo Lyles DO ANESTHESIA: General LMA. ESTIMATED BLOOD LOSS: Minimal. URINE OUTPUT: 300 mL clear at the end of procedure. FLUIDS: 1000 mL lactated Ringer's solution. FINDINGS: A Lippes loop IUD as well as purulent exudate of the endometrial cavity, grossly normal appearing external female genitalia. SPECIMEN SENT: Anaerobic cultures of the purulent exudate as well as endometrial curettings. INDICATIONS FOR PROCEDURE: A 64-year-old female patient was sent to my office for postmenopausal bleeding in the findings of a Lippes loop retained IUD. I discussed with the patient, attempting to remove this in the office; however, I also discussed the possibility of erosion of the IUD through the endometrium and the myometrium as well as discomfort that may be appreciated with this procedure being done in the office as well as the need for endometrial sampling due to postmenopausal bleeding. Risks of procedure were discussed with the patient in detail including risk of bleeding, infection, damage to surrounding structures including, but not limited to bowel, bladder, ureter, kidneys, possible need for reoperation, possible postoperative infection. After all her questions were answered, consent was obtained, the patient was taken to the operating room. OPERATIVE REPORT IN DETAIL: Once in the operating room, anesthesia was found to be adequate. She was placed in dorsal lithotomy position, prepped and draped in normal sterile fashion. A timeout was performed. The bladder was then drained using straight catheterization. Weighted speculum was inserted into the patient's vagina. Right angle retractor was used to visualize the cervix, which was grasped at a 12 o'clock position using a long Allis clamp. I then performed paracervical block at 3 and 9 o'clock positions on the cervix. Care was taken to aspirate for injecting, 5 mL were injected into each site after which I grasped the Lippes loop IUD using a long curved narrow Tierra clamp. The IUD was removed intact in 1 piece. However, purulent exudate was expressed after this removal. I collected an anaerobic culture and performed a Pap smear after that. After which I dilated the cervix using Hegar dilators to maximum dilatation approximately 8 mm at which point I introduced a small endometrial curette and curetted the endometrium in a gentle manner, collected all the endometrial tissue that I can until a gentle uterine cry was appreciated. I then removed all instruments from the patient's vagina and collect the endometrial curettings and send them as endometrial curettings. The patient tolerated the procedure well and was taken to recovery area in stable condition. Lap and sponge counts correct at the end of the procedure. Instrument counts were correct as well. A 100 mg of doxycycline were given intraoperatively for infection prophylaxis. Job ID: [id number] DocumentID: [id number] Dictated Date: 11/28/2019 11:22:56 Electro Mechanical Engineer Date: 11/28/2019 16:14:53 Dictated By: DO NANDINI CROOK
== END 2019-11-28 12:43 | disposition home or self-care (01) ==
LOC: SDC 08:29
PROVIDERS: ATTEND Obstetrics & Gynecology
DX: Z30.432 Encounter for removal of intrauterine contraceptive device (principal); N95.0 Postmenopausal bleeding; I10 Essential (primary) hypertension; F17.210 Nicotine dependence, cigarettes, uncomplicated; G89.29 Other chronic pain; M54.9 Dorsalgia, unspecified; K21.9 Gastro-esophageal reflux disease without esophagitis; M06.9 Rheumatoid arthritis, unspecified; Z82.3 Family history of stroke; Z82.5 Family history of asthma and other chronic lower respiratory diseases; Z79.899 Other long term (current) drug therapy; Z79.891 Long term (current) use of opiate analgesic
CPT/HCPCS: 36415; 85025; 86850; 86900; 86901; 87070; 87075; 87077; 87081; 87205; 88305

== ENCOUNTER 2019-12-15 13:42 | Inpatient (IN) | payer MEDICARE ==
[~2019-12-15] VITALS: Ht 160 cm; Wt 79.0 kg
--- NOTE | 2019-12-15 13:35 | NUR ---
RICKY SIEGEL admitted to room 3306-1, with an admitting diagnosis of possible uterine infection, on 12/15/[address] Lyles's office, accompanied by .RICKY SIEGEL introduced to surroundings, call light, bed controls, phone, TV, temperature control, lights, meal times, smoking policy, visitor policy, side rail policy, bathrooms and showers. Patient Rights given to patient in the handbook. RICKY SIEGEL verbalizes understanding that [facility] is not responsible for the loss or damage to any personal effects or valuables that are kept in the patients posession during their hospitalization.
[2019-12-15 13:50] VITALS: BP 129/67
[2019-12-15] MEDS ORDERED: metroNIDAZOLE 500MG/100ML IVPB 100 ML IV SCH (14:00)
[2019-12-15] MEDS ORDERED: CATHETER FLUSH 10 ML SYR IV PRN (14:00)
[2019-12-15] MEDS ORDERED: HOLD METFORMIN - RECEIVED CONTRAST 20 ML VIAL IV SCH (14:00)
[2019-12-15] MEDS ORDERED: NS 100 ML (IVPB) BAG IV ONE (14:00)
[2019-12-15] MEDS ORDERED: IOHEXOL 350 MG/ML 100 ML (OMNIPAQUE 350) VIAL IV ONE (14:00)
[2019-12-15 14:15] VITALS: BP 129/67
[2019-12-15] MEDS: NS IV 1000 ML 1,000 ML IV SCH ×2 (14:53→22:08)
[2019-12-15] MEDS: KETOROLAC 15 MG/ML VIAL IVP PRN ×2 (14:57→20:36)
[2019-12-15] MEDS: AMPICILLIN/SULBACTAM INJECTION 1.5 GM in NS (IVPB) 100 ML IV SCH ×2 (15:02→22:07)
--- NOTE | 2019-12-15 15:06 | Diagnostic Imaging Report ---
PROCEDURE: CT abdomen and pelvis with and without contrast. TECHNIQUE: Precontrast acquisitions were acquired through the abdomen and pelvis. Multiple contiguous axial images were obtained through the abdomen and pelvis after the administration of intravenous contrast. Auto Exposure Controls were utilized during the CT exam to meet ALARA standards for radiation dose reduction. INDICATION: IUD removal in November. Patient now has elevated white blood cell count and severe abdominal cramping and pain. COMPARISON: Comparison is made with prior CT from 04/28/2017. FINDINGS: The lung bases are clear. Circumscribed low-density lesion in right lobe of the liver is noted suggestive of a cyst. Gallbladder is unremarkable. No biliary ductal dilatation is identified. The pancreas and spleen are unremarkable. No adrenal mass is detected. Kidneys are unremarkable. There is no hydronephrosis. Aorta is non-aneurysmal. Bowel loops appear to be normal caliber. No obstruction is identified. There is diverticulosis of the descending sigmoid colon. Sigmoid colon does appear to show some long segment wall thickening. The inflamed sigmoid loop is inseparable from the left ovary which may be enlarged and contain small cysts. Moderate amount of adjacent inflammatory stranding is present. The uterus demonstrates significant endometrial thickening measuring up to approximately 3.1 cm. Bladder is unremarkable. No free fluid is seen. IMPRESSION: There appear to be inflammatory changes in the left pelvis. This may be owing to acute diverticulitis involving the sigmoid colon. However, there appears to be some enlargement of what appears to be the left ovary in the left adnexa which contains two cystic structures, largest measuring approximately 24 mm x 18 mm. There is significant endometrial thickening exceeding 3 cm. Sonographic evaluation would be useful for better characterization of the pelvic structures. No bowel obstruction is seen. No other significant abnormality is identified. Dictated by: Dictated on workstation # [id number]
[2019-12-15 15:20] VITALS: BP 129/67
--- OUTSIDE RECORDS SUMMARY | 2019-12-15 16:12 | XMS REPORT | Continuity of Care Document ---
Author Organization Unknown Address Unknown Phone Unavailable Allergies Active Description Code Type Severity Reaction Onset Reported/Identified Relationship to Patient Clinical Status Yes No Known Drug Allergies [id number] Drug Allergy Unknown N/A 11/22/2019 Medications There is no data. Problems Date Dx Coded Attending Type Code Diagnosis Diagnosed By 05/07/1442 RHONA BROOKE DO Ot Z01.818 ENCOUNTER FOR OTHER PREPROCEDURAL EXAMIN 05/07/1442 RHONA BROOKE DO Ot Z11.59 ENCOUNTER FOR SCREENING FOR OTHER VIRAL 08/19/2012 Ot 813.44 FX LOW RADIUS W ULNA-CL 08/19/2012 Ot 959.3 ELB/ FOREARM/WRST INJ NOS 08/19/2012 Ot E000.8 OTH ER EXTERNAL CAUSE STATUS 08/19/2012 Ot E006.0 ACT IVITIES INVOLVING ROLLER SKATING (INL 08/19/2012 Ot E006.2 ACT IVITIES INVOLVING GOLF 08/19/2012 Ot E849.4 ACC ID IN RECREATION AREA 08/19/2012 Ot E885.1 ACC IDENT DUE TO ROLLERSKATE 07/27/2015 Ot 793.80 07/27/2015 Ot 793.80 07/27/2015 HERRERA STERLING DC Ot 722. 4 07/27/2015 HERRERA STERLING DC Ot 722. 51 09/05/2015 SANDY DO, ETELVINA F Ot M17.11 09/05/2015 SANDY DO, ETELVINA F Ot M25.461 09/05/2015 SANDY DO, ETELVINA F Ot M25.561 12/20/2015 ANSON MAXWELL, GLADIS Vazquez Ot R06. 02 SHORTNESS OF BREATH 12/20/2015 GLADIS GRIGGS MD Ot Z12. 31 ENCNTR SCREEN MAMMOGRAM FOR MALIGNANT NE 12/20/2015 GLADIS GRIGGS MD Ot R06. 02 SHORTNESS OF BREATH 12/20/2015 GLADIS GRIGGS MD Ot Z12. 31 ENCNTR SCREEN MAMMOGRAM FOR MALIGNANT NE 12/25/2015 GLADIS GRIGGS MD Ot R06. 02 SHORTNESS OF BREATH 12/25/2015 GLADIS GRIGGS MD Ot Z12. 31 ENCNTR SCREEN MAMMOGRAM FOR MALIGNANT NE 02/01/2016 GLADIS GRIGGS MD Ot R06. 02 SHORTNESS OF BREATH 02/01/2016 GLADIS GRIGGS MD Ot Z12. 31 ENCNTR SCREEN MAMMOGRAM FOR MALIGNANT NE 04/28/2017 LONG DC, HERRERA S Ot 722. 4 CERVICAL DISC DEGEN 04/28/2017 LONG DC, HERRERA S Ot 722. 51 THORACIC DISC DEGEN 04/28/2017 SANDY DO, ETELVINA F Ot M17.11 UNILATERAL PRIMARY OSTEOARTHRITIS, RIGHT 04/28/2017 SANDY DO, ETELVINA F Ot M25.461 EFFUSION, RIGHT KNEE 04/28/2017 SANDY DO, ETELVINA F Ot M25.561 PAIN IN RIGHT KNEE 04/28/2017 GLADIS GRIGGS MD Ot R06. 02 SHORTNESS OF BREATH 04/28/2017 GLADIS GRIGGS MD, Ot Z12. 31 ENCNTR SCREEN MAMMOGRAM FOR MALIGNANT NE 04/29/2017 LONG DC, HERRERA S Ot 722. 4 CERVICAL DISC DEGEN 04/29/2017 LONG DC, HERRERA S Ot 722. 51 THORACIC DISC DEGEN 04/29/2017 SANDY DO, ETELVINA F Ot M17.11 UNILATERAL PRIMARY OSTEOARTHRITIS, RIGHT 04/29/2017 SANDY DO, ETELVINA F Ot M25.461 EFFUSION, RIGHT KNEE 04/29/2017 SANDY DO ETELVINA F Ot M25.561 PAIN IN RIGHT KNEE 04/29/2017 GLADIS GRIGGS MD Ot R06. 02 SHORTNESS OF BREATH 04/29/2017 GLADIS GRIGGS MD Ot Z12. 31 ENCNTR SCREEN MAMMOGRAM FOR MALIGNANT NE 04/30/2017 GLADIS GRIGGS MD Ot E86. 0 DEHYDRATION 04/30/2017 GLADIS GRIGGS MD Ot F17.210 NICOTINE DEPENDENCE, CIGARETTES, UNCOMPL 04/30/2017 GLADIS GRIGGS MD Ot I10 ESSENTIAL (PRIMARY) HYPERTENSION 04/30/2017 GLADIS GRIGGS MD Ot K52. 9 NONINFECTIVE GASTROENTERITIS AND COLITIS 04/30/2017 ANSON MAXWELL, GLADIS Vazquez Ot K92. 1 MELENA 06/02/2017 STEPHANY TELLEZ DO Ot K21. 9 GASTRO-ESOPHAGEAL REFLUX DISEASE WITHOUT 06/02/2017 STEPHANY TELLEZ DO Ot K92. 1 MELENA 06/02/2017 STEPHANY TELLEZ DO Ot Z01.818 ENCOUNTER FOR OTHER PREPROCEDURAL EXAMIN 06/09/2017 STEPHANY TELLEZ DO Ot F17.210 NICOTINE DEPENDENCE, CIGARETTES, UNCOMPL 06/09/2017 STEPHANY TELLEZ DO Ot I10 ESSENTIAL (PRIMARY) HYPERTENSION 06/09/2017 STEPHANY TELLEZ DO Ot K21. 0 GASTRO-ESOPHAGEAL REFLUX DISEASE WITH ES 06/09/2017 STEPHANY TELLEZ DO Ot K29. 70 GASTRITIS, UNSPECIFIED, WITHOUT BLEEDING 06/09/2017 STEPHANY TELLEZ DO Ot K44. 9 DIAPHRAGMATIC HERNIA WITHOUT OBSTRUCTION 06/09/2017 STEPHANY TELLEZ DO Ot K52. 9 NONINFECTIVE GASTROENTERITIS AND COLITIS 06/09/2017 STEPHANY TELLEZ DO Ot K62. 1 RECTAL POLYP 06/09/2017 STEPHANY TELLEZ DO Ot K63. 5 POLYP OF COLON 06/09/2017 STEPHANY TELLEZ DO Ot Z79.899 OTHER MCC (CURRENT) DRUG THERAPY 09/24/2017 ANSON MAXWELL, GLADIS Vazquez Ot M76. 61 ACHILLES TENDINITIS, RIGHT LEG 11/17/2019 SANDY DO, ETELVINA F Ot M17.11 UNILATERAL PRIMARY OSTEOARTHRITIS, RIGHT 11/17/2019 SANDY DO, ETELVINA F Ot M25.461 EFFUSION, RIGHT KNEE 11/17/2019 SANDY DO, ETELVINA F Ot M25.561 PAIN IN RIGHT KNEE 11/17/2019 GLADIS GRIGGS MD Ot R06. 02 SHORTNESS OF BREATH 11/17/2019 GLADIS GRIGGS MD Ot Z12. 31 ENCNTR SCREEN MAMMOGRAM FOR MALIGNANT NE 11/17/2019 ANSON MAXWELL, GLADIS Vazquez Ot M76. 61 ACHILLES TENDINITIS, RIGHT LEG 11/22/2019 SANDY DO, ETELVINA F Ot M17.11 UNILATERAL PRIMARY OSTEOARTHRITIS, RIGHT 11/22/2019 SANDY DO, ETELVINA F Ot M25.461 EFFUSION, RIGHT KNEE 11/22/2019 SANDY DO, ETELVINA F Ot M25.561 PAIN IN RIGHT KNEE 11/22/2019 GLADIS GRIGGS MD Ot R06. 02 SHORTNESS OF BREATH 11/22/2019 GLADIS GRIGGS MD Ot Z12. 31 ENCNTR SCREEN MAMMOGRAM FOR MALIGNANT NE 11/22/2019 GLADIS GRIGGS MD Ot M76. 61 ACHILLES TENDINITIS, RIGHT LEG 11/28/2019 [facility] DO RHONA Mariah Ot R10.9 UNSPECIFIED ABDOMINAL PAIN 12/03/2019 [facility] DO, RHONA Lemus Ot F17.210 NICOTINE DEPENDENCE, CIGARETTES, UNCOMPL 12/03/2019 [facility] DO, RHONA Lemus Ot G89.29 OTHER CHRONIC PAIN 12/03/2019 [facility] DORHONA Ot I1 0 ESSENTIAL (PRIMARY) HYPERTENSION 12/03/2019 [facility] DORHONA Ot K21.9 GASTRO-ESOPHAGEAL REFLUX DISEASE WITHOUT 12/03/2019 [facility] DORHONA Ot M06.9 RHEUMATOID ARTHRITIS, UNSPECIFIED 12/03/2019 [facility] DORHONA Ot M54.9 DORSALGIA, UNSPECIFIED 12/03/2019 [facility] DORHONA Ot N95.0 POSTMENOPAUSAL BLEEDING 12/03/2019 [facility] DO RHONA Lemus Ot Z30.432 ENCOUNTER FOR REMOVAL OF INTRAUTERINE CO 12/03/2019 [facility] DO, RHONA Mariah Ot Z79.891 MCC (CURRENT) USE OF OPIATE ANALGE 12/03/2019 [facility] DORHONA Ot Z79.899 OTHER M[facility] (CURRENT) DRUG THERAPY 12/03/2019 [facility] DO RHONA Mariah Ot Z82.3 FAMILY HISTORY OF [facility] FAMILY HISTORY OF ASTHMA AND OTH CHRONIC Procedures There is no data. Results Test Result Range Complete blood count (CBC) with automate d white blood cell (WBC) differential - 04/28/17 16:48 Blood leukocytes automated count (number/volume) 21.1 10*3/uL 4.3-11.0 Blood erythrocytes automated count (number/volume) 4.70 10*6/uL 4.35-5.85 Venous blood hemoglobin measurement (mass/volume) 15.7 g/dL 11.5-16.0 Blood hematocrit (volume fraction) 47 % 35-52 Automated erythrocyte mean corpuscular volume 99 [ foz_us] 80-99 Automated erythrocyte mean corpuscular h emoglobin (mass per erythrocyte) 33 pg 25-34 Automated erythrocyte mean corpuscular h emoglobin concentration measurement (mass/volume) 34 g/dL 32-36 Automated erythrocyte distribution width ratio 13. 6 % 10.0- 14.5 Automated blood platelet count (count/volume) 286 10*3/uL [...] 10*3 1.0-4.0 Blood monocytes automated count (number/volume) 1. 1 10*3 0.0-1.0 Automated eosinophil count 0.2 10*3/uL 0 .0-0.3 Automated blood basophil count (count/volume) 0.1 10*3/uL 0.0-0.1 Blood manual differential performed dete ction - 04/28/17 16:48 Blood monocytes/100 leukocytes 1 % NRG Manual blood segmented neutrophils/100 leukocytes 84 % NRG Blood band neutrophils/100 leukocytes 0 % NRG Manual blood lymphocytes/100 leukocytes 14 % NRG Manual eosinophils/100 leukocytes in nose 1 % NRG Manual blood basophils/100 leukocytes 0 % NRG Blood erythrocyte morphology finding identification NORMAL [facility] Comprehensive metabolic panel - 04/28/17 16:48 Serum or plasma sodium measurement (moles/volume) 141 mmol/L 135-145 Serum or plasma potassium measurement (moles/volume) 3.8 mmol/L 3.6-5.0 Serum or plasma chloride measurement (moles/volume) 103 mmol/L 98-107 Carbon dioxide 27 mmol/L 21-32 Serum or plasma anion gap determination (moles/volume) 11 mmol/L 5-14 Serum or plasma urea nitrogen measurement (mass/volume ) 18 mg/dL 7-18 Serum or plasma creatinine measurement (mass/volume) 0.80 mg/dL 0.60-1.30 Serum or plasma urea nitrogen/creatinine mass ratio 23 NRG Serum or plasma creatinine measurement w ith calculation of estimated glomerular filtration rate > NRG Serum or plasma glucose measurement (mass/volume) 109 mg/dL 70-105 Serum or plasma calcium measurement (mass/volume) 9.4 mg/dL 8.5-10.1 Serum or plasma total bilirubin measurement (mass/volu me) 0.8 mg/dL 0.1-1.0 Serum or plasma alkaline phosphatase aleena surement (enzymatic activity/volume) 74 U/L 40-136 Serum or plasma aspartate aminotransfera se measurement (enzymatic activity/volume) 14 U/L 5-34 Serum or plasma alanine aminotransferase measurement (enzymatic activity/volume) 14 U/L 0-55 Serum or plasma protein measurement (mass/volume) 6.9 g/dL 6.4-8.2 Serum or plasma albumin measurement (mass/volume) 4.0 g/dL 3.2-4.5 Complete blood count (CBC) with automate d white blood cell (WBC) differential - 04/29/17 05:48 Blood leukocytes automated count (number/volume) 14.9 10*3/uL 4.3-11.0 Blood erythrocytes automated count (number/volume) 3.92 10*6/uL 4.35-5.85 Venous blood hemoglobin measurement (mass/volume) 13.2 g/dL 11.5-16.0 Blood hematocrit (volume fraction) 39 % 35-52 Automated erythrocyte mean corpuscular volume 100 [foz_us] 80-99 Automated erythrocyte mean corpuscular h emoglobin (mass per erythrocyte) 34 pg 25-34 Automated erythrocyte mean corpuscular h emoglobin concentration measurement (mass/volume) 34 g/dL 32-36 Automated erythrocyte distribution width ratio 13. 4 % 10.0- 14.5 Automated blood platelet count (count/volume) 225 10*3/uL [...] 10*3 1.0-4.0 Blood monocytes automated count (number/volume) 1. 3 10*3 0.0-1.0 Automated eosinophil count 0.2 10*3/uL 0 .0-0.3 Automated blood basophil count (count/volume) 0.1 10*3/uL 0.0-0.1 Comprehensive metabolic panel - 04/29/17 05:48 Serum or plasma sodium measurement (moles/volume) 140 mmol/L 135-145 Serum or plasma potassium measurement (moles/volume) 3.8 mmol/L 3.6-5.0 Serum or plasma chloride measurement (moles/volume) 110 mmol/L 98-107 Carbon dioxide 22 mmol/L 21-32 Serum or plasma anion gap determination (moles/volume) 8 mmol/L 5-14 Serum or plasma urea nitrogen measurement (mass/volume ) 13 mg/dL 7-18 Serum or plasma creatinine measurement (mass/volume) 0.67 mg/dL 0.60-1.30 Serum or plasma urea nitrogen/creatinine mass ratio 19 NRG Serum or plasma creatinine measurement w ith calculation of estimated glomerular filtration rate > NRG Serum or plasma glucose measurement (mass/volume) 101 mg/dL 70-105 Serum or plasma calcium measurement (mass/volume) 8.4 mg/dL 8.5-10.1 Serum or plasma total bilirubin measurement (mass/volu me) 1.0 mg/dL 0.1-1.0 Serum or plasma alkaline phosphatase aleena surement (enzymatic activity/volume) 57 U/L 40-136 Serum or plasma aspartate aminotransfera se measurement (enzymatic activity/volume) 12 U/L 5-34 Serum or plasma alanine aminotransferase measurement (enzymatic activity/volume) 9 U/L 0-55 Serum or plasma protein measurement (mass/volume) 5.1 g/dL 6.4-8.2 Serum or plasma albumin measurement (mass/volume) 3.1 g/dL 3.2-4.5 C DIFFICILE AG + TOXIN A/B. - 04/29/17 1 4:00 RESULTS NEGATIVE FOR ANTIGEN AND TOXIN A/B NRG Stool bacteria identification by culture - 04/29/17 14:00 NEGATIVE FOR 0157 NEGATIVE FOR E COLI 0157 NRG NEGATIVE FOR CAMPY NEGATIVE FOR CAMPYLOBACTER NRG NEGATIVE FOR SHIGELLA NEGATIVE FOR SHIGELLA NRG NEGATIVE FOR SALMONELLA NEGATIVE FOR SALMONELLA NRG Complete blood count (CBC) with automate d white blood cell (WBC) differential - 04/30/17 05:40 Blood leukocytes automated count (number/volume) 10.2 10*3/uL 4.3-11.0 Blood erythrocytes automated count (number/volume) 3.63 10*6/uL 4.35-5.85 Venous blood hemoglobin measurement (mass/volume) 12.2 g/dL 11.5-16.0 Blood hematocrit (volume fraction) 36 % 35-52 Automated erythrocyte mean corpuscular volume 100 [foz_us] 80-99 Automated erythrocyte mean corpuscular h emoglobin (mass per erythrocyte) 34 pg 25-34 Automated erythrocyte mean corpuscular h emoglobin concentration measurement (mass/volume) 34 g/dL 32-36 Automated erythrocyte distribution width ratio 13. 0 % 10.0- 14.5 Automated blood platelet count (count/volume) 229 10*3/uL [...] 10*3 1.0-4.0 Blood monocytes automated count (number/volume) 0. 8 10*3 0.0-1.0 Automated eosinophil count 0.4 10*3/uL 0 .0-0.3 Automated blood basophil count (count/volume) 0.0 10*3/uL 0.0-0.1 Whole blood basic metabolic panel - 04/09 08/22 05:40 Serum or plasma sodium measurement (moles/volume) 140 mmol/L 135-145 Serum or plasma potassium measurement (moles/volume) 4.0 mmol/L 3.6-5.0 Serum or plasma chloride measurement (moles/volume) 108 mmol/L 98-107 Carbon dioxide 25 mmol/L 21-32 Serum or plasma anion gap determination (moles/volume) 7 mmol/L 5-14 Serum or plasma urea nitrogen measurement (mass/volume ) 4 mg/dL 7-18 Serum or plasma creatinine measurement (mass/volume) 0.65 mg/dL 0.60-1.30 Serum or plasma urea nitrogen/creatinine mass ratio 6 NRG Serum or plasma creatinine measurement w ith calculation of estimated glomerular filtration rate > NRG Serum or plasma glucose measurement (mass/volume) 98 mg/dL 70-105 Serum or plasma calcium measurement (mass/volume) 8.3 mg/dL 8.5-10.1 CBC - 08/31/19 09:27 WHITE BLOOD CELL COUNT 6.8 Thousand/uL 3 .8-10.8 RED BLOOD CELL COUNT 4.62 Million/uL 3.8 0-5.10 HEMOGLOBIN 15.7 g/dL 11.7-15.5 HEMATOCRIT 45.9 % 35.0-45.0 MCV 99.4 fL 80.0-100.0 MCH 34.0 pg 27.0-33.0 MCHC 34.2 g/dL 32.0-36.0 RDW 12.6 % 11.0-15.0 PLATELET COUNT 326 Thousand/uL 140-400 MPV 10.3 fL 7.5-12.5 ABSOLUTE NEUTROPHILS 4087 cells/uL 1500- 7800 ABSOLUTE LYMPHOCYTES 1809 cells/uL 850-3 900 ABSOLUTE MONOCYTES 374 cells/uL 200-950 ABSOLUTE EOSINOPHILS 469 cells/uL 15-500 ABSOLUTE BASOPHILS 61 cells/uL 0-200 NEUTROPHILS 60.1 % NRG LYMPHOCYTES 26.6 % NRG MONOCYTES 5.5 % NRG EOSINOPHILS 6.9 % NRG BASOPHILS 0.9 % NRG VITAMIN D, 25-H - 08/31/19 09:27 VITAMIN D,25-OH,TOTAL,IA 26 ng/mL 30-10 0 A1C - 08/31/19 09:27 HEMOGLOBIN A1c 5.3 % of total Hgb <5.7 Coronavirus SARS-CoV-2 SO 2018 - 0 08:00 Coronavirus Ab [Units/volume] in Serum Negative Negative Complete blood count (CBC) with automate d white blood cell (WBC) differential - 11/28/19 09:00 Blood leukocytes automated count (number/volume) 7.6 10*3/uL 4.3-11.0 Blood erythrocytes automated count (number/volume) 4.68 10*6/uL 4.35-5.85 Venous blood hemoglobin measurement (mass/volume) 15.7 g/dL 11.5-16.0 Blood hematocrit (volume fraction) 46 % 35-52 Automated erythrocyte mean corpuscular volume 97 [ foz_us] 80-99 Automated erythrocyte mean corpuscular h emoglobin (mass per erythrocyte) 34 pg 25-34 Automated erythrocyte mean corpuscular h emoglobin concentration measurement (mass/volume) 34 g/dL 32-36 Automated erythrocyte distribution width ratio 13. 6 % 10.0- 14.5 Automated blood platelet count (count/volume) 313 10*3/uL 130-400 Automated blood platelet mean volume measurement 10.1 [foz_us] 7.4-10.4 Automated blood neutrophils/100 leukocytes 61 % 42-75 Automated blood lymphocytes/100 leukocytes 26 % 12-44 Blood monocytes/100 leukocytes 6 % 0-12 Automated blood eosinophils/100 leukocytes 6 % 0-10 Automated blood basophils/100 leukocytes 1 % 0-10 Blood neutrophils automated count (number/volume) 4.7 10*3 1.8-7.8 Blood lymphocytes automated count (number/volume) 2.0 10*3 1.0-4.0 Blood monocytes automated count (number/volume) 0. 5 10*3 0.0-1.0 Automated eosinophil count 0.5 10*3/uL 0 .0-0.3 Automated blood basophil count (count/volume) 0.1 10*3/uL 0.0-0.1 Blood type T Indirect antibody screen pa kathia - 11/28/19 09:00 WRISTBAND NUMBER [id number] NRG ABO+Rh group OP NRG Blood group antibody screen NEGATIVE NR G Methicillin resistant Staphylococcus aur eus (MRSA) screening culture - 11/28/19 09:00 Methicillin resistant Staphylococcus aureus (MRSA) scr eening culture NEG NRG Bacteria identification in isolate by an aerobe culture - 11/28/19 10:00 Bacteria identification in isolate by anaerobe culture NOANA NRG Gram stain microscopy - 11/28/19 10:00 Gram stain microscopy Mixed Bacterial Ena NRG Bacteria identification in wound by cult ure - 11/28/19 10:00 Bacteria identification in wound by culture [id number] NRG QUANTITY OF GROWTH Rare NRG SUSCEPTIBILITY NO FURTHER TESTING NRG MRSA SCREEN SEE COMMENT NR Comprehensive metabolic panel - 12/15/19 12:43 Serum or plasma sodium measurement (moles/volume) 137 mmol/L 135-145 Serum or plasma potassium measurement (moles/volume) 3.8 mmol/L 3.6-5.0 Serum or plasma chloride measurement (moles/volume) 99 mmol/L 98-107 Carbon dioxide 23 mmol/L 21-32 Serum or plasma anion gap determination (moles/volume) 15 mmol/L 5-14 Serum or plasma urea nitrogen measurement (mass/volume ) 15 mg/dL 7-18 Serum or plasma creatinine measurement (mass/volume) 0.94 mg/dL 0.60-1.30 Serum or plasma urea nitrogen/creatinine mass ratio 16 NRG Serum or plasma creatinine measurement w ith calculation of estimated glomerular filtration rate 60 NRG Serum or plasma glucose measurement (mass/volume) 120 mg/dL 70-105 Serum or plasma calcium measurement (mass/volume) 10.7 mg/dL 8.5-10.1 Serum or plasma total bilirubin measurement (mass/volu me) 1.0 mg/dL 0.1-1.0 Serum or plasma alkaline phosphatase aleena surement (enzymatic activity/volume) 107 U/L 40-136 Serum or plasma aspartate aminotransfera se measurement (enzymatic activity/volume) 22 U/L 5-34 Serum or plasma alanine aminotransferase measurement (enzymatic activity/volume) 18 U/L 0-55 Serum or plasma protein measurement (mass/volume) 7.8 g/dL 6.4-8.2 Serum or plasma albumin measurement (mass/volume) 4.2 g/dL 3.2-4.5 CALCIUM CORRECTED 10.5 mg/dL 8.5-10.1 Complete blood count (CBC) with automate d white blood cell (WBC) differential - 12/15/19 12:43 Blood leukocytes automated count (number/volume) 29.8 10*3/uL 4.3-11.0 Blood erythrocytes automated count (number/volume) 4.22 10*6/uL 4.35-5.85 Venous blood hemoglobin measurement (mass/volume) 14.2 g/dL 11.5-16.0 Blood hematocrit (volume fraction) 41 % 35-52 Automated erythrocyte mean corpuscular volume 97 [ foz_us] 80-99 Automated erythrocyte mean corpuscular h emoglobin (mass per erythrocyte) 34 pg 25-34 Automated erythrocyte mean corpuscular h emoglobin concentration measurement (mass/volume) 35 g/dL 32-36 Automated erythrocyte distribution width ratio 13. 6 % 10.0- 14.5 Automated blood platelet count (count/volume) 379 10*3/uL 130-400 Automated blood platelet mean volume measurement 9.9 [foz_us] 7.4-10.4 Automated blood neutrophils/100 leukocytes 91 % 42-75 Automated blood lymphocytes/100 leukocytes 5 % 12-44 Blood monocytes/100 leukocytes 4 % 0-12 Automated blood eosinophils/100 leukocytes 0 % 0-10 Automated blood basophils/100 leukocytes 0 % 0-10 Blood neutrophils automated count (number/volume) 27.0 10*3 1.8-7.8 Blood lymphocytes automated count (number/volume) 1.4 10*3 1.0-4.0 Blood monocytes automated count (number/volume) 1. 3 10*3 0.0-1.0 Automated eosinophil count 0.1 10*3/uL 0 .0-0.3 Automated blood basophil count (count/volume) 0.0 10*3/uL 0.0-0.1 Manual absolute plasma cell count - 07/0 02/25 12:43 Blood monocytes/100 leukocytes 2 % NRG Manual blood segmented neutrophils/100 leukocytes 82 % NRG Blood band neutrophils/100 leukocytes 5 % NRG Manual blood lymphocytes/100 leukocytes 10 % NRG Manual eosinophils/100 leukocytes in nose 1 % NRG Manual blood basophils/100 leukocytes 0 % NRG Blood erythrocyte morphology finding identification NORMAL NRG Encounters ACCT No. Visit Date/Time Discharge Status Pt. Type Provider Facility Loc./Unit Complaint [id number] 10/19/2019 15:00:00 10/19/2019 23:59:5 9 [facility] Outpatient ALEJANDRO [facility] [id number] 08/31/2019 09:20:00 Document Registration [id number] 11/28/2019 08:29:00 12:43:00 DIS Outpatient RHONA BROOKE DO [facility] SDC RETAINED IUD [id number] 11/24/2019 05:30:00 14:43:00 DIS Outpatient RHONA BROOKE DO [facility] PREOP RETAINED IUD [id number] 09/08/2017 10:01:00 018 23:59:59 CLS Outpatient GLADIS GRIGGS MD [facility] RAD RIGHT HEEL PAIN [id number] 06/09/2017 07:52:00 018 10:05:00 DIS Outpatient STEPHANY TELLEZ DO [facility] ENDO ABNORMAL CT SCAN/GERD/B LOOD IN STOOLS [id number] 06/02/2017 05:42:00 017 12:49:00 DIS Outpatient STEPHANY TELLEZ DO [facility] PREOP COLONOSCOPY/EGD [id number] 04/28/2017 20:10:00 017 15:45:00 DIS Inpatient GLADIS GRIGGS MD [facility] 4TH COLITIS;LEUKOCYTOSIS,HE MATOCHEZIA [id number] 12/19/2015 08:22:00 016 23:59:59 CLS Outpatient GLADIS GRIGGS MD [facility] RAD SCREENING [id number] 07/27/2015 15:20:00 016 23:59:59 CLS Outpatient ETELVINA DELGADO DO [facility] RAD RT KNEE MENISCU S TEAR, PRIMARY OA [id number] 03/30/2015 16:32:00 015 23:59:59 CLS Outpatient JANES CAMERON [facility] QUICK [id number] 03/30/2014 16:48:00 014 23:59:59 CLS Outpatient HERRERA STERLING DC [facility] RAD NECK AND RT UPPER BACK PAIN [id number] 10/05/2012 08:43:00 013 23:59:59 CLS Outpatient [id number] 12/15/2019 12:59:00 Document Registration [id number] 07/27/2015 15:19:00 Document Registration [id number] 07/27/2015 15:19:00 Document Registration [id number] 08/18/2012 20:55:00 Document Registration [id number] 02/03/2011 15:17:00 Document Registration [id number] 07/30/2010 14:26:00 Document Registration
--- OUTSIDE RECORDS SUMMARY | 2019-12-15 16:12 | XMS REPORT ---
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 [address] [facility] [id number] [address] [place] [phone] Jul, [facility] [address] [facility] [id number] [address] [place] [phone] Jun, [facility] [address] [facility] [id number] [address] [place] [phone] Jun, Right hip pain M25.551 IMMUNIZATIONS No Known Immunizations SOCIAL HISTORY Never Assessed REASON FOR VISIT Blood pressure-elevated, started last month PLAN OF CARE Activity Details Follow Up 3 Months Reason: VITAL SIGNS Height 61.5 in 2018-08-10 Weight 164.5 lbs 2018-08-10 Temperature 99.7 degrees Fahrenheit 2018-08-10 BMI 30.58 kg/m2 2018-08-10 Blood pressure systolic 124 mmHg 2018-08-10 Blood pressure diastolic 84 mmHg 2018-08-10 MEDICATIONS Medication Instructions Dosage Frequency Start Date End Date Duration S tatus Meloxicam 15 MG Orally Once a day 1 tablet 24h Jun, 30 day(s) Active Vitamin E 1000 UNIT Orally daily 1 tab 24h Active Chantix Starting Month Param 0.5 mg x 11 & 1 mg x 42 Orally as directed as directed 30 days Active Pantoprazole Sodium 40 MG Orally Once a day 1 tablet 24h 30 day(s) Active Lisinopril-Hydrochlorothiazide 20-12.5 MG Orally Once a day 1 tablet 24h 30 day(s) Active Atorvastatin Calcium 10 MG Orally Once a day 1 tablet 24h 30 day(s) Active Restasis 0.05 % Ophthalmic Twice a day 1 drop into both eyes 12h Active Glucosamine Chond Complex/MSM - Orally daily 1 tab 24h Active RESULTS No Results PROCEDURES No Known procedures INSTRUCTIONS MEDICATIONS ADMINISTERED No Known Medications MEDICAL (GENERAL) HISTORY Type Description Date Medical History htn Medical History cholesterol Medical History degenerative changes right hip Medical History acid reflux Surgical History right wrist 08/2012 Surgical History left knee scope 2004 Surgical History colonoscopy Surgical History EGD Hospitalization History surgeries Hospitalization History septic
--- OUTSIDE RECORDS SUMMARY | 2019-12-15 16:12 | XMS REPORT ---
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 [facility] [employer] Address [address] [address] Care Team Providers Care Payment Analyst Name Role Phone GLADIS GRIGGS Unavailable RHONA AGRAWAL Unavailable ALEJANDRO CERON Unavailable Unavailable Unavailable Unavailable STEPHANY TELLEZ DO Unavailable Unavailable GLADIS GRIGGS MD Unavailable Unavailable GLADIS GRIGGS MD Unavailable Unavailable SANDY DOETELVINA F Unavailable Unavailable FENECH DO, RHONA S Unavailable Unavailable FENECH DO, RHONA S Unavailable Unavailable Unavailable Unavailable Unavailable Unavailable Unavailable Unavailable Allergies The data below is from unstructured sourcesNo known allergies.No known allergies.No known allergies.No known allergies.No known allergies. No Known Allergies No Known Allergies Encounters Encounter Date Encounter Type Encounter Diagnosis Care Provider Facility Start: Evaluation and RHONA Mariah BROOKE [facility] Via [facility] 12-15-2019 management of [facility] inpatient Start: Patient encounter RHONA BROOKE DO [facility] Vi a [facility] 12-15-2019 procedure [facility] Start: Patient encounter RHONA BROOKE DO [facility] Vi a [facility] 11-22-2019 procedure [facility] Start: Patient encounter ALEJANDRO CERON Formerly [facility] 10-19-2019 procedure [facility] Start: Patient encounter NA NA [facility] 08-31-2019 procedure [facility] Start: Patient encounter ALEJANDRO CERON Formerly [facility] 08-30-2019 procedure [facility] Start: Patient encounter NA NA [facility] 04-21-2019 procedure [facility] ([id number]) Start: Patient encounter NA NA [facility] 04-06-2019 procedure [facility] ([id number]) Start: [facility] Leung (primary) RHONA Pereyra [facility] THOMPS[facility] 08-10-2018 MAIN hypertension MAIN Start: Patient encounter NONE PCP [facility] 08-10-2018 procedure [facility] ([id number]) Start: [facility] 08-04-2018 Start: Telephone encounter RHONA AGRAWAL SHAZIAKARRI KRYSTIAN [facility] 07-06-2018 Start: Patient encounter NA NA [facility] 06-29-2018 procedure [facility] ([id number]) Start: [facility] Pain in right hip RHONA AVENDAÑO JOSUE [facility] 06-29-2018 Start: Patient encounter GLADIS GRIGGS MD Not Availa ble ([id number]) 09-08-2017 procedure Start: Patient encounter GLADIS GRIGGS MD [facility] Via [facility] 09-08-2017 procedure [facility] Start: Patient encounter NA NA [facility] 06-09-2017 procedure [facility] ([id number]) End: 06-09-2017 Start: Patient encounter STEPHANY TELLEZ DO [facility] Via [facility] 06-09-2017 [facility] End: 06-09-2017 Start: Patient encounter STEPHANY TELLEZ DO [facility] Via [facility] 06-02-2017 procedure [facility] End: 06-02-2017 Start: Patient encounter NA NA Not Availab le ([id number]) 04-28-2017 procedure End: 04-30-2017 Start: Emergency department DUDLEY SCHUMACHER Not Patricia lable ([id number]) 04-28-2017 patient visit Start: Evaluation and GLADIS GRIGGS MD [facility] Via [facility] Department 04-28-2017 management of [facility] inpatient End: 04-30-2017 Start: Patient encounter GLADIS GRIGGS MD Not Availa ble ([id number]) 12-19-2015 procedure Start: Patient encounter GLADIS GRIGGS MD [facility] Via [facility] 12-19-2015 procedure [facility] Start: Patient encounter 07-27-2015 procedure Start: Patient encounter ETELVINA DELGADO DO [facility] V ia [facility] 07-27-2015 procedure [facility] Start: Patient encounter HERRERA STERLING DC Not Availa ble ([id number]) 03-30-2014 procedure Start: Emergency department 08-18-2012 patient visit End: 08-19-2012 ENCOUNTER FOR OTHER Encounter for other STEPHANY TELLEZ DO [facility] urg examination ([id number]) Medical Equipment No Information Goals No Information Immunizations The data below is from unstructured sources No Known Immunizations Interventions No Information Medications Medication Drug Dates Sig Sig (Original) Class(es) (Normalized) atorvastatin 10 mg oral HMG-CoA take 1 tablet Atorva statin Calcium 10 MG Orally Once a tablet Reductase by mouth once day 1 tablet 24 h 30 day(s) Active (1 source) Inhibitor daily Glucosamine Chond take 1 tablet Glucosamine Chond Complex/MSM - Orally Complex/MSM - by mouth once daily 1 tab 24h Act willie (1 source) daily hydroCHLOROthiazide 12.5 Thiazide take 1 tablet Lisin opril- Hydrochlorothiazide 20-12.5 mg / lisinopril 20 mg Diuretic, by mouth once MG Orall y Once a day 1 tablet 24h 30 oral tablet Angiotensi daily day(s) Active (1 source) n Converting Enzyme Inhibitor meloxicam 15 mg oral Nonsteroid Start: take 1 tablet Irma oxicam 15 MG Orally Once a day 1 tablet al 07-06-2018 by mouth once tablet 24h 2 Jun, 30 day(s) Active (1 source) Anti-infla daily mmatory Drug varenicline 0.5 mg oral Partial Chantix Starti ng Month Param 0.5 mg x 11 & tablet Cholinergi 1 mg x 42 Orally as directed as directed (1 source) c 30 days Active Nicotinic Agonist Vitamin E 1000 UNIT take 1 tablet Vitamin E 1000 U NIT Orally daily 1 tab (1 source) by mouth once 24h Active daily Payers No Information Plan of Treatment The data below is from unstructured sources Discharge Date 06/02/17 12:49pm Prescriptions See Medication Section Discharge Date 04/30/17 3:45pm Disposition 01 HOME, SELF-CARE Instructions/Education Provided DEANNA [id number] Forms Provided PDI Medical Prescriptions See Medication Section Referrals (Unspecified) Entered Date: 04/30/2017 10:59am Note: CALL DR. SAAVEDRA OFFICE FOR AN APPOINTMENT TOMORROW GLADIS GRIGGS MD (Unspecified) Order Date: 4 Days Entered Date: 04/30/2017 2:08pm Address: [address] [place], [place] [address], [address] [place] [address] [phone] Note: MAY RETURN TO WORK Thursday05/04/17 WITH NO RESTRICTIONS Activity Details Follow Up 3 Months Reason: Activity Details Follow Up 3 Months Reason: Problems Active Problems Problem Problem Date Last Documented Episodic/Chr Provider Classificati Recorded Date onic on Abdominal Diaphragmatic hernia without 11-17-2019 Episodic STEPHANY TELLEZ hernia obstruction or gangrene DO (6 sources) Anal and Rectal polyp 11-17-2019 Episodic STEPHANY TELLEZ rectal DO conditions (6 sources) E Codes: Fall from roller skates Episodic Fall (2 sources) E Codes: Accidents occurring in place for Epi sodic Place of recreation and sport occurrence (2 sources) E Codes: Other external cause status ; Episod ic Unspecified Translations: [ACTIVITIES I NVOLVING (2 sources) ROLLER SKATING (INL] Esophageal Gastro-esophageal reflux disease 11-17-2019 Chroni c STEPHANY TELLEZ disorders with esophagitis ; Translations: DO (10 sources) [Gastro-esophageal reflux d isease without esophagitis] Essential Essential (primary) hypertension ; 11-17-2019 [employer] Controls Supervisor nate GLADIS GRIGGS hypertension Translations: [Essential MD (17 sources) hypertension] Fluid and Dehydration 11-17-2019 Episodic GLADIS GRIGGS electrolyte MD disorders (9 sources) Fracture of Closed fracture of lower end of Epis odic upper limb radius with ulna (2 sources) Gastritis Gastritis, unspecified, without 11-17-2019 Episodi c STEPHANY TELLEZ and bleeding DO duodenitis (6 sources) Osteoarthrit Unilateral primary osteoarthritis, 11-17-2019 Chr onic ETELVINA is right knee SANDY DO (6 sources) Other Other rn long term care (current) drug 11-17-2019 Episodic STEPHANY TELLEZ aftercare therapy DO (6 sources) Other and Polyp of colon 11-17-2019 Episodic STEPHANY DUNBA R unspecified DO benign neoplasm (6 sources) Other Achilles tendinitis, right leg 11-17-2019 Episodic GLADIS GRIGGS connective MD tissue disease (5 sources) Other Elbow, forearm, and wrist injury Epi sodic injuries and conditions due to external causes (2 sources) Other lower Shortness of breath 11-17-2019 Episodic GLADIS GRIGGS respiratory disease (6 sources) Other Effusion, right knee 11-17-2019 Episodic FINA T non-traumati SANDY DO c joint disorders (6 sources) Other Pain in right knee 11-17-2019 Episodic ETELVINA non-traumati SANDY DO c joint disorders (6 sources) Other Encounter for screening mammogram 11-17-2019 Episo dic GLADIS GRIGGS screening for malignant neoplasm of breast MD for suspected conditions (not mental disorders or infectious disease) (6 sources) Spondylosis; Degeneration of cervical Chronic MARKIE KERY LONG intervertebr intervertebral disc ; Translations: ZAIN al disc [CERVICAL DISC DEGEN] disorders; other back problems (3 sources) Substance-re Nicotine dependence, cigarettes, 11-17-2019 Chron ic GLADIS GRIGGS lated uncomplicated ; Translations: disorders [Cigarette smoker ] (18 sources) Past or Other Problems Problem Problem Date Last Documented Episodic/Chr Provider Classificati Recorded Date onic on Other Pain in right hip ; Translations: [ Episodic RHONA non-traumati - Right hip pain M25.551] AGRAWAL c joint disorders Other (1 source) Phone: Procedures The data below is from unstructured sourcesNo procedure information available. No Known procedures No Known procedures Results Test Name Value Interpreta Reference Facilit Date tion Range y Time laboratory on 2019-12-15 Albumin [Mass/Vol] 4.2 g/dL Negative 3.2-4.5 PENDING 07-0 9-2 g/dL [facility] 08:43-0 ([id number]) 400 ALP [Catalytic 107 U/L Negative 40-136 U/L PENDING activity/Vol] [facility] 08:43-0 ([id number]) 400 ALT [Catalytic 18 U/L Negative 0-55 U/L PENDING activity/Vol] [facility] 08:43-0 ([id number]) 400 Anion gap 15 mmol/L High 5-14 PENDING [Moles/Vol] mmol/L [facility] 08:43-0 ([id number]) 400 AST [Catalytic 22 U/L Negative 5-34 U/L PENDING activity/Vol] [facility] 08:43-0 ([id number]) 400 Band form 5 % Invalid % PENDING neutrophils/100 WBC Interpreta [facility] 020 (Bld) tion Code N [facility] 08:43-0 ([id number]) 400 Basophils (Bld) 0.0 10*3/uL Negative 0.0-0.1 PENDING 12-14 [#/Vol] 10*3/uL [facility] 020 [facility] 08:43-0 ([id number]) 400 Basophils/100 WBC 0 % Negative PENDING (Bld) [facility] 020 [facility] 08:43-0 ([id number]) 400 Bilirubin [Mass/Vol] 1.0 mg/dL Negative 0.1-1.0 PENDING - mg/dL [facility] 020 [facility] 08:43-0 ([id number]) 400 Calcium [Mass/Vol] 10.7 mg/dL High 8.5-10.1 PENDING 02-07 mg/dL [facility] 020 [facility] 08:43-0 ([id number]) 400 Calcium [Mass/Vol] 10.5 mg/dL High 8.5-10.1 PENDING 02-07 mg/dL [facility] 020 [facility] 08:43-0 ([id number]) 400 Chloride [Moles/Vol] 99 mmol/L Negative 98-107 PENDING mmol/L [facility] 020 [facility] 08:43-0 ([id number]) 400 CO2 [Moles/Vol] 23 mmol/L Negative 21-32 PENDING mmol/L [facility] 020 [facility] 08:43-0 (11055) 400 Creatinine 0.94 mg/dL Negative 0.60-1.30 PENDING [Mass/Vol] mg/dL [facility] 020 [facility] 08:43-0 (37511) 400 Creatinine and 60 Invalid PENDING Glomerular Interpreta [facility] 020 filtration tion Code [facility] 08:43-0 rate.predicted panel ([id number]) 400 - Serum, Plasma or Blood Eosinophils (Bld) 0.1 10*3/uL Negative 0.0-0.3 PENDING 02-07 [#/Vol] 10*3/uL [facility] 020 [facility] 08:43-0 ([id number]) 400 Eosinophils/100 WBC 0 % Negative 0-10 % PENDING 02-07 (Bld) [facility] 020 [facility] 08:43-0 ([id number]) 400 Eosinophils/100 WBC 1 % Invalid % PENDING 02-07 (Nose) Interpreta [facility] 020 tion Code [facility] 08:43-0 ([id number]) 400 Erythrocyte 13.6 % Negative 10.0-14.5 PENDING distribution width % [facility] 020 (RBC) [Ratio] [facility] 08:43-0 ([id number]) 400 Glucose [Mass/Vol] 120 mg/dL High 70-105 PENDING 9-2 mg/dL [facility] 020 [facility] 08:43-0 ([id number]) 400 Hematocrit (Bld) 41 % Negative 35-52 % PENDING [Volume fraction] [facility] 020 [facility] 08:43-0 ([id number]) 400 Hemoglobin (Bld) 14.2 g/dL Negative 11.5-16.0 PENDING [Mass/Vol] g/dL [facility] 020 [facility] 08:43-0 ([id number]) 400 Lymphocytes (Bld) 1.4 10*3/uL Negative 1.0-4.0 PENDING 02-07 [#/Vol] 10*3 [facility] 020 [facility] 08:43-0 ([id number]) 400 Lymphocytes/100 WBC 5 % Low 12-44 % PENDING 02-07 (Bld) [facility] 020 [facility] 08:43-0 ([id number]) 400 Lymphocytes/100 WBC 10 % Invalid % PENDING 02-07 (Bld) Interpreta [facility] 020 tion Code [facility] 08:43-0 ([id number]) 400 MCH (RBC) [Entitic 34 pg Negative 25-34 pg PENDING 0 9-2 mass] [facility] 020 [facility] 08:43-0 ([id number]) 400 MCHC (RBC) 35 g/dL Negative 32-36 g/dL PENDING [Mass/Vol] [facility] 020 [facility] 08:43-0 ([id number]) 400 MCV (RBC) [Entitic 97 Negative 80-99 PENDING 07-0 9-2 vol] [foz_us] [facility] 020 [facility] 08:43-0 ([id number]) 400 Monocytes (Bld) 1.3 10*3/uL High 0.0-1.0 PENDING 12-14 [#/Vol] 10*3 [facility]20 [facility] 08:43-0 ([id number]) 400 Monocytes/100 WBC 4 % Negative 0-12 % PENDING 12-14 (Bld) [facility] 08:43-0 (50042) 400 Monocytes/100 WBC 2 % Invalid % PENDING 12-14 (Bld) Interpreta [facility] 020 tion Code N [facility] 08:43-0 ([id number]) 400 Neutrophils (Bld) 27.0 10*3/uL High 1.8-7.8 PENDING [#/Vol] 10*3 LOC[facility] 020 [facility] 08:43-0 ([id number]) 400 Neutrophils/100 WBC 91 % High 42-75 % PENDING 02-07 (Bld) [facility] 020 [facility] 08:43-0 ([id number]) 400 Platelet mean volume 9.9 Negative 7.4-10.4 PENDING (Bld) [Entitic vol] [foz_us] [facility] 020 [facility] 08:43-0 ([id number]) 400 Platelets (Bld) 379 10*3/uL Negative 130-400 PENDING 12-14 [#/Vol] 10*3/uL [facility] 020 [facility] 08:43-0 (10743) 400 Potassium 3.8 mmol/L Negative 3.6-5.0 PENDING [Moles/Vol] mmol/L [facility] 020 [facility] 08:43-0 ([id number]) 400 Protein [Mass/Vol] 7.8 g/dL Negative 6.4-8.2 PENDING - 9-2 g/dL [facility] 020 [facility] 08:43-0 ([id number]) 400 RBC (Bld) [#/Vol] 4.22 10*6/uL Low 4.35-5.85 PENDING 10*6/uL [facility] 020 [facility] 08:43-0 ([id number]) 400 RBC morphology NORMAL Invalid PENDING finding Nom (Bld) Interpreta [facility] 020 tion Code N [facility] 08:43-0 ([id number]) 400 Segmented 82 % Invalid % PENDING neutrophils/100 WBC Interpreta [facility] 020 (Bld) tion Code N [facility] 08:43-0 (30842) 400 Sodium [Moles/Vol] 137 mmol/L Negative 135-145 PENDING 02-07 mmol/L [facility] 020 [facility] 08:43-0 ([id number]) 400 Urea nitrogen 15 mg/dL Negative 7-18 mg/dL PENDING [Mass/Vol] [facility] 020 [facility] 08:43-0 (69431) 400 Urea 16 mg/mg Invalid PENDING nitrogen/Creatinine Interpreta [facility] 020 [Mass ratio] tion Code N [facility] 08:43-0 ([id number]) 400 WBC (Bld) [#/Vol] 29.8 10*3/uL High 4.3-11.0 PENDING 10*3/uL [facility] 020 [facility] 08:43-0 (15650) 400 laboratory on 2019-08-31 25-hydroxyvitamin D3 26 ng/mL Low 30-100 Commu ni [Mass/Vol] ng/mL [facility] (80980) Albumin [Mass/Vol] 4.4 g/dL Normal 3.6-5.1 Communi g/dL [facility] (93392) Albumin/Globulin 2.2 {ratio} Normal 1.0-2.5 Communi [Mass ratio] (calc) [facility] (59242) ALP [Catalytic 72 U/L Normal 37-153 U/L Communi activity/Vol] [facility] (37470) ALT [Catalytic 15 U/L Normal 6-29 U/L Communi activity/Vol] [facility] (08060) AST [Catalytic 15 U/L Normal 10-35 U/L Communi activity/Vol] [facility] (77183) Basophils (Bld) 0.061 10*3/uL Normal 0-200 Communi [#/Vol] cells/uL [facility] (98355) Basophils/100 WBC 0.9 % Normal % Communi (Bld) ty [facility] (10985) Bilirubin [Mass/Vol] 0.7 mg/dL Normal 0.2-1.2 Commu ni mg/dL ty [facility] (70363) Calcium [Mass/Vol] 10.0 mg/dL Normal 8.6-10.4 Communi mg/dL [facility] (52762) Chloride [Moles/Vol] 101 mmol/L Normal 98-110 Commu ni mmol/L [facility] (49340) Cholesterol 217 mg/dL High <200 mg/dL Communi [Mass/Vol] [facility] (81770) Cholesterol in HDL 56 mg/dL Normal > OR = 50 Communi [Mass/Vol] mg/dL [facility] (96748) Cholesterol in LDL 118 mg/dL High mg/dL Communi [Mass/Vol] (calc) [facility] (98001) Cholesterol non HDL 161 mg/dL High <130 mg/dL Commun i [Mass/Vol] (calc) [facility] (12202) Cholesterol.total/Ch 3.9 {ratio} Normal <5.0 Commu ni olesterol in HDL (calc) ty [Mass ratio] [facility] (89670) CO2 [Moles/Vol] 32 mmol/L Normal 20-32 Communi mmol/L [facility] (38096) Creatinine 0.72 mg/dL Normal 0.50-0.99 Communi [Mass/Vol] mg/dL [facility] (83147) Eosinophils (Bld) 0.469 10*3/uL Normal 15-500 Commun i [#/Vol] cells/uL [facility] (18533) Eosinophils/100 WBC 6.9 % Normal % Commun i (Bld) [facility] (78134) Erythrocyte 12.6 % Normal 11.0-15.0 Communi distribution width % ty (RBC) [Ratio] [facility] (60777) Free T4 [Mass/Vol] 1.3 ng/dL Normal 0.8-1.8 Communi ng/dL ty [facility] (74008) GFR/1.73 sq 102 mL/min/{1.73_m2} Normal > OR = 60 Commu ni M.predicted among mL/min/1.7 ty blacks MDRD 3m2 Health (S/P/Bld) [Vol Center rate/Area] [facility] (88888) GFR/1.73 sq 88 mL/min/{1.73_m2} Normal > OR = 60 Commun i M.predicted MDRD mL/min/1.7 ty (S/P/Bld) [Vol 3m2 Health rate/Area] [facility] (73321) Globulin (S) 2.0 g/dL Normal 1.9-3.7 Communi [Mass/Vol] g/dL ty (calc) [facility] (53985) Glucose [Mass/Vol] 89 mg/dL Normal 65-99 Communi mg/dL [facility] (89968) HbA1c (Bld) [Mass 5.3 Normal <5.7 % of Communi fraction] total Hgb [facility] (84457) Hematocrit (Bld) 45.9 % High 35.0-45.0 Communi [Volume fraction] % [facility] (40964) Hemoglobin (Bld) 15.7 g/dL High 11.7-15.5 Communi [Mass/Vol] g/dL [facility] (07178) Lymphocytes (Bld) 1.809 10*3/uL Normal 850-3900 Commun i [#/Vol] cells/uL [facility] (75637) Lymphocytes/100 WBC 26.6 % Normal % Commun i (Bld) [facility] (85315) MCH (RBC) [Entitic 34.0 pg High 27.0-33.0 Communi mass] pg [facility] (17549) MCHC (RBC) 34.2 g/dL Normal 32.0-36.0 Communi [Mass/Vol] g/dL [facility] (71854) MCV (RBC) [Entitic 99.4 fL Normal 80.0-100.0 Communi vol] fL [facility] (96515) Monocytes (Bld) 0.374 10*3/uL Normal 200-950 Communi [#/Vol] cells/uL [facility] (70644) Monocytes/100 WBC 5.5 % Normal % Communi (Bld) [facility] (69980) Neutrophils (Bld) 4.087 10*3/uL Normal 2875-9089 Commun i [#/Vol] cells/uL [facility] (01047) Neutrophils/100 WBC 60.1 % Normal % Commun i (Bld) [facility] (11238) Platelet mean volume 10.3 fL Normal 7.5-12.5 Commu ni (Bld) [Entitic vol] fL [facility] (74553) Platelets (Bld) 326 10*3/uL Normal 140-400 Communi [#/Vol] Thousand/u ty L [facility] (19656) Potassium 4.4 mmol/L Normal 3.5-5.3 Communi [Moles/Vol] mmol/L [facility] (79742) Protein [Mass/Vol] 6.4 g/dL Normal 6.1-8.1 Communi g/dL [facility] (01928) RBC (Bld) [#/Vol] 4.62 10*6/uL Normal 3.80-5.10 Communi Million/uL [facility] (56009) Sodium [Moles/Vol] 142 mmol/L Normal 135-146 Communi mmol/L [facility] (00618) Triglyceride 279 mg/dL High <150 mg/dL Communi [Mass/Vol] [facility] (64439) TSH Qn 2.10 m[IU]/L Normal 0.40-4.50 Communi mIU/L [facility] (13391) Urea nitrogen 21 mg/dL Normal 7-25 mg/dL Communi [Mass/Vol] ty [facility] (32043) Urea NOT APPLICABLE Invalid 6- Communi nitrogen/Creatinine Interpreta (calc) ty [Mass ratio] tion Code [facility] (23270) WBC (Bld) [#/Vol] 6.8 10*3/uL Normal 3.8-10.8 Communi Thousand/u ty L [facility] (02231) Social History No Information Vital Signs Date Time Vital Sign Value Performing Clinician Facil ity 08-10-2018 Body height 156.21 cm [facility] [employer] 11:20-0500 Other Phone: [facility] ([id number]) 08-10-2018 Body mass index 30.58 kg/m2 [facility] 11:20-0500 (BMI) [Ratio] Other Phone: [facility] ([id number]) 08-10-2018 Body temperature 99.7 [degF] [facility] [employer] 11:20-0500 Other Phone: [facility] ([id number]) 08-10-2018 Body weight 74.62 kg [facility] [employer] 11:20-0500 Other Phone: [facility] ([id number]) Functional Status The data below is from unstructured sources Query Response Date Luis Antonio rded Comprehension Ability Understands Co ncepts April 28, 2017 9:12pm Mental Status No Information History general Narrative - Reported Note Date & Note Facility Type History general Narrative - Reported Type Medical htn History Medical cholesterol History Medical degenerative changes right hip History Medical acid reflux History Surgical right wrist 08/2012 History Surgical left knee scope 2004 History Surgical colonoscopy History Surgical EGD History Hospitalizatio surgeries n History Hospitalizatio septic n History [facility] ([id number]) Advance Directives Directive Response Recor ded Date/Time Advance Directives No 12:42pm Health Care Power of Aircraft Structural Repair Mechanic No 06/02/17 12:42pm Organ Donor No 04/28/17 9:01pm Resuscitation Status Full Code 06/02/17 12:42pm Directive Response Recor ded Date/Time Advance Directives No 9:00am Health Care Power of Aircraft Structural Repair Mechanic No 06/09/17 9:00am Organ Donor No 06/09/17 9:00am Resuscitation Status Full Code 06/09/17 9:00am Directive Response Recor ded Date/Time Advance Directives No 9:01pm Organ Donor No 04/28/17 9:01pm Resuscitation Status Full Code 04/28/17 9:01pm Discharge Instructions No hospital discharge instruction information available.No hospital discharge instruction information available.No hospital discharge instruction information available. Additional Source Comments This clinical document has been generated using [employer] software that has been certified by the Office of the National Coordinator for Health Information Technology (ONC 15.99.04.3023.Diam.31.00.0.048715) and the National Committee for Head Of Music (NCQA, as an eMeasure certified technology). FOR RECORDS PERTAINING TO PATIENTS WHO ARE OR HAVE BEEN ENROLLED IN A CHEMICAL D EPENDENCY/SUBSTANCE ABUSE PROGRAM, SOME INFORMATION MAY BE OMITTED. This clinica l summary was aggregated from multiple sources. Caution should be exercised in using it in the provision of clinical care. This summary normalizes information from multiple sources, and as a consequence, information in this document may ma terially change the coding, format and clinical context of patient data. In flavio tion, data may be omitted in some cases. CLINICAL DECISIONS SHOULD BE BASED ON T HE PRIMARY CLINICAL RECORDS. [employer] provides no warranty or guara ntee of the accuracy or completeness of information in this document.The followi ng information is based on time limited clinical information UNRECOGNIZED CONTENT PROVIDED BELOW FOR UNRECOGNIZED SECTION REASON FOR VISIT Blood pressure-elevated, started last month
--- NOTE | 2019-12-15 16:22 | Diagnostic Imaging Report ---
INDICATION: Pelvic inflammation. Pelvic sonography performed with transabdominal and transvaginal views. There is no prior ultrasound for comparison. Comparison made to CT of same day. The uterus measures 10.4 x 6.7 x 6.4 cm. The endometrium is markedly thickened and appears to be filled with fluid and/or debris with internal echoes. The endometrium measures about 2.8 cm. Neither ovary could be visualized sonographically. No definite free fluid is seen. IMPRESSION: The uterus appears be filled with fluid and/or debris. This may represent pus and/or blood. Ovaries could not be visualized. The abnormal findings in the left adnexa on the CT study are not well depicted on the ultrasound. Dictated by: Dictated on workstation # [id number]
--- NOTE | 2019-12-15 17:14 | History & Physical-OB/GYN ---
History of Present Illness History of Present Illness Reason for visit/HPI Patient admitted from office with acute onset low abdominal pain and cramping PO 10 days from D and C with removal IUD. Reports she was doing fine the first 5 days, and then 3 days ago began feeling worse and worse. She denied fever in the office. Date of Admission Dec 15, 2019 at 13:42 Date Seen by a Provider: Dec 15, 2019 Time Seen by a Provider: 16:35 I consulted on this patient on 12/15/19 17:07 Attending Physician Rhona Brooke DO Admitting Physician Mckenna Olmstead Aprn Consult Allergies and Home Medications Allergies Coded Allergies: No Known Drug Allergies (Unverified , 11/22/19) Home Medications Atorvastatin Calcium 40 Mg Tablet, 40 MG PO DAILY, (Reported) Cholecalciferol (Vitamin D3) 25 Mcg Capsule, 25 MCG PO DAILY, (Reported) Doxycycline Monohydrate 100 Mg Capsule, 100 MG PO BID Prescribed by: RHONA BROOKE on 11/28/19 1113 Ibuprofen 600 Mg Tablet, 600 MG PO Q6H Prescribed by: RHONA BROOEK on 11/28/19 1046 Lisinopril/Hydrochlorothiazide 1 Each Tablet, 1 EACH PO DAILY, (Reported) Meloxicam 15 Mg Tablet, 15 MG PO DAILY, (Reported) Multivitamin 1 Each Tablet, 1 EACH PO DAILY, (Reported) Pantoprazole Sodium 40 Mg Tablet.dr, 40 MG PO DAILY, (Reported) Vitamin E Mixed 1,000 Unit Capsule, 1,000 UNIT PO DAILY, (Reported) [Mood Free Ultra] , 1 CAP PO DAILY, (Reported) Patient Home Medication List Home Medication List Reviewed: Yes Past Xuhbelt-Ubxccc-[place] Hx Patient Social History Marrital Status: Alcohol Use: Denies Use Alcohol Beverage of Choice: Wine Recreational Drug Use: No Smoking Status: Current Someday Smoker Type Used: Cigarettes 2nd Hand Smoke Exposure: Yes Physical Abuse Screen: No Sexual Abuse: No Recent Foreign Travel: No Contact w/other who traveled: No Recent Hopitalizations: Yes (November) Recent Infectious Disease Expo: No Immunizations Up To Date Tetanus Booster (TDap): More than 5yrs Pediatric: No Seasonal Allergies Seasonal Allergies: No Surgeries Yes Respiratory No Currently Using CPAP: No Currently Using BIPAP: No Cardiovascular No High Cholesterol, Hypertension Neurological No 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 System Hx 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 Disorders: No Sexually Transmitted Disease: No HIV/AIDS: No Female 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 Disorders: Denies 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 Genitourinary No Gastrointestinal No Gastroesophageal Reflux Musculoskeletal No Arthritis, Chronic Back Pain Endocrine History of Endocrine Disorders: No HEENT History of HEENT Disorders: Yes (dry eye syndrome) Loss of Vision: Denies Hearing Impairment: Denies Cancer No Psychosocial History of Psychiatric Problem: No Integumentary History of Skin or Integumenta: No Blood Transfusions History of Blood Disorders: No Adverse Reaction to a Blood Tr: No Family Medical History Significant Family History: No Pertinent Family Hx Family Hx: Hypertension 19 MOTHER Review of Systems Constitutional: no symptoms reported, see HPI EENTM: see HPI Respiratory: see HPI Cardiovascular: see HPI Gastrointestinal: see HPI Genitourinary: see HPI : No Musculoskeletal: see HPI Skin: see HPI Psychiatric/Neurological: See HPI All Other Systems Reviewed Negative Unless Noted: Yes Physical Exam Physical Exam Vital Signs Vital Signs Date Time Temp Pulse Resp B/P (MAP) Pulse Ox O2 Delivery O2 Flow Rate FiO2 12/15/19 16:21 37.8 12/15/19 15:20 37.4 118 16 129/67 100 Room Air 12/15/19 14:15 Room Air 12/15/19 14:15 37.4 118 16 100 Room Air 12/15/19 13:50 37.4 118 16 129/67 (87) 100 Room Air Capillary Refill : Less Than 3 Seconds General Appearance: No Apparent Distress Respiratory: Chest Non Tender, Lungs Clear Cardiovascular: Regular Rate, Rhythm Abdominal: tenderness (lower abdominal tenderness) Assessment/Plan Admission Diagnosis 64 yo female with acute onset abdominal pain CT reveals inflammation of colon suspicious for diverticulitis US appears what would be expected PO 10 days Admission Status: Observation Clinical Quality Measures DVT/VTE Risk/Contraindication: Risk Factor Score Per Nursin RFS Level Per Nursing on Admit: 4+=Very High RHONA BROOKE DO Dec 15, 2019 17:14
--- NOTE | 2019-12-15 17:15 | NUR ---
Dr Lyles here - reviewed sono result. Pt requesting water and food. Consult to general surgeon- Dr Sotomayor. Dr Lyles did discuss case with Dr Sotomayor so this RN did not call surgeon. Temp 100. 1840 Temp 101.4. Note to Dr Lyles of temp. Pt feels aching and increased pain across abdomen. Calf SDC's applied.
[2019-12-15 18:30] VITALS: BP 124/75
[2019-12-15 20:02] VITALS: BP 111/69
[2019-12-15] MEDS: HYDROcodone/APAP 5 MG/325 MG (LORTAB) TAB PO PRN (20:36)
[2019-12-15] MEDS: CATHETER FLUSH 10 ML SYR IV PRN (20:37)
--- NOTE | 2019-12-15 21:19 | NUR ---
THIS RN NOTIFIED DR. BROOKE THAT PT FLAGGED SEPSIS RISK. NO NEW ORDERS OBTAINED.
[2019-12-15] MEDS: metroNIDAZOLE 500MG/100ML IVPB 100 ML IV SCH (22:07)
[2019-12-15 23:28] VITALS: BP 93/54
[2019-12-16] MEDS: NS IV 1000 ML 1,000 ML IV SCH ×3 (01:37→20:32)
[2019-12-16] MEDS: HYDROcodone/APAP 5 MG/325 MG (LORTAB) TAB PO PRN ×2 (03:08→19:27)
[2019-12-16 03:09] VITALS: BP 104/59
[2019-12-16] MEDS: AMPICILLIN/SULBACTAM INJECTION 1.5 GM in NS (IVPB) 100 ML IV SCH ×3 (05:11→22:11)
[2019-12-16 05:37] LABS: BASOPHILS % (AUTO) 0 % (0-10); EOSINOPHILS # (AUTO) 0.1 10^3/uL (0.0-0.3); EOSINOPHILS % (AUTO) 1 % (0-10); HEMATOCRIT 34 % (35-52); HEMOGLOBIN 11.6 G/DL (11.5-16.0); LYMPHOCYTES # (AUTO) 1.3 X 10^3 (1.0-4.0); LYMPHOCYTES % (AUTO) 6 % (12-44); MEAN CORPUSCULAR HEMOGLOBIN 34 PG (25-34); MEAN CORPUSCULAR HGB CONC 34 G/DL (32-36); MEAN CORPUSCULAR VOLUME 98 FL (80-99); MEAN PLATELET VOLUME 9.8 FL (7.4-10.4); MONOCYTES # (AUTO) 1.3 X 10^3 (0.0-1.0); MONOCYTES % (AUTO) 6 % (0-12); NEUTROPHILS # (AUTO) 19.6 X 10^3 (1.8-7.8); NEUTROPHILS % (AUTO) 88 % (42-75); PLATELET COUNT 338 10^3/uL (130-400); RED CELL DISTRIBUTION WIDTH 13.5 % (10.0-14.5); WHITE BLOOD COUNT 22.3 10^3/uL (4.3-11.0)
[2019-12-16] MEDS: metroNIDAZOLE 500MG/100ML IVPB 100 ML IV SCH ×3 (06:13→22:43)
[2019-12-16 08:01] VITALS: BP 110/69
[2019-12-16] MEDS: KETOROLAC 15 MG/ML VIAL IVP PRN ×3 (08:06→20:33)
--- NOTE | 2019-12-16 09:00 | NUR ---
Dr Lyles called to unit, orders to make pt NPO. Water and coffee removed from pt table at this time and pt notified.
--- NOTE | 2019-12-16 10:30 | NUR ---
Dr. Sotomayor at pt bedside discussing plan of care
--- NOTE | 2019-12-16 11:19 | Consultation - Surgery ---
History of Present Illness History of Present Illness Patient Consulted On(darren/time) 12/16/19 11:17 Date Seen by Provider: Dec 16, 2019 Time Seen by Provider: 11:18 History of Present Illness Consult requested by Dr. Brooke for diverticulitis Patient is a 64 year old female who was admitted for llq abdominal pain. Patient had elevated WBC. Had recent IUD removed and D and C by Dr. Brooke. Patient states started having pain LLQ last thursday sharp/achy pain. 03/17 pain. Slightly better today. Passing flatus, no bm. Has felt constipated. Took some prune juice last thursday and had very small bm. No radiation of pain. Denies sweats chills shortness of breath or chest pain. Ct scan reviewed and suggestive of acute diverticulitis. Allergies and Home Medications Allergies Coded Allergies: No Known Drug Allergies (Unverified , 11/22/19) Home Medications Atorvastatin Calcium 40 Mg Tablet, 40 MG PO DAILY, (Reported) Cholecalciferol (Vitamin D3) 25 Mcg Capsule, 25 MCG PO DAILY, (Reported) Doxycycline Monohydrate 100 Mg Capsule, 100 MG PO BID Prescribed by: RHONA BROOKE on 11/28/19 1113 Ibuprofen 600 Mg Tablet, 600 MG PO Q6H Prescribed by: RHONA BROOKE on 11/28/19 1046 Lisinopril/Hydrochlorothiazide 1 Each Tablet, 1 EACH PO DAILY, (Reported) Meloxicam 15 Mg Tablet, 15 MG PO DAILY, (Reported) Multivitamin 1 Each Tablet, 1 EACH PO DAILY, (Reported) Pantoprazole Sodium 40 Mg Tablet.dr, 40 MG PO DAILY, (Reported) Vitamin E Mixed 1,000 Unit Capsule, 1,000 UNIT PO DAILY, (Reported) [Mood Free Ultra] , 1 CAP PO DAILY, (Reported) Patient Home Medication List Home Medication List Reviewed: Yes Past Upgdibs-Mutczh-Ucayid Hx Patient Social History Alcohol Use: Denies Use Recreational Drug Use: No Smoking Status: Current Someday Smoker Type Used: Cigarettes 2nd Hand Smoke Exposure: Yes Recent Foreign Travel: No Contact w/Someone Who Travel: No Recent Infectious Disease Expo: No Recent Hopitalizations: Yes (November) Physical Abuse Screen: No Sexual Abuse: No Immunizations Up To Date Tetanus Booster (TDap): More than 5yrs PED Vaccines UTD: No Seasonal Allergies Seasonal Allergies: No Surgeries History of Surgeries: Yes (d and c) Respiratory History of Respiratory Disorde: No Respiratory Disorders: Pneumonia Cardiovascular History of Cardiac Disorders: No Cardiac Disorders: High Cholesterol, Hypertension Neurological History of Neurological Disord: No 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 System : No Hx 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 Disorders: No Sexually Transmitted Disease: No HIV/AIDS: No Female 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 Disorders: Denies 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 Genitourinary History of Genitourinary Disor: No Gastrointestinal History of Gastrointestinal Di: No Gastrointestinal Disorders: Gastroesophageal Reflux Musculoskeletal History of Musculoskeletal Dis: No Musculoskeletal Disorders: Arthritis, Chronic Back Pain Endocrine History of Endocrine Disorders: No HEENT History of HEENT Disorders: Yes (dry eye syndrome) Loss of Vision: Denies Hearing Impairment: Denies Cancer History of Cancer: No Psychosocial History of Psychiatric Problem: No Integumentary History of Skin or Integumenta: No Blood Transfusions History of Blood Disorders: No Adverse Reaction to a Blood Tr: No Reviewed Nursing Assessment Reviewed/Agree w Nursing PMH: Yes Family Medical History Significant Family History: No Pertinent Family Hx Family Medial History: Hypertension 19 MOTHER Review of Systems-General Constitutional: No chills, No fever EENTM: No ear pain, No blurred vision Respiratory: No cough, No dyspnea on exertion Cardiovascular: No chest pain Gastrointestinal: LLQ, abdominal pain (LLQ); No dysphagia; nausea; No vomiting Genitourinary: No decreased output, No discharge Musculoskeletal: No back pain, No joint pain Skin: No change in color, No change in hair/nails Psychiatric/Neurological: Denies Anxiety, Denies Depressed, Denies Emotional Problems All Other Systems Reviewed Negative Unless Noted: Yes (Negative excepted noted.) Physical Exam-General Problems Physical Exam Vital Signs Vital Signs - First Documented 12/15/19 13:50 Temp 37.4 Pulse 118 Resp 16 B/P (MAP) 129/67 (87) Pulse Ox 100 O2 Delivery Room Air Capillary Refill : Less Than 3 Seconds General Appearance: WD/WN, no apparent distress HEENT: PERRL/EOMI, normal ENT inspection, TMs normal Neck: non-tender, supple, normal inspection Respiratory: chest non-tender, no respiratory distress, no accessory muscle use Cardiovascular: regular rate, rhythm, no edema Gastrointestinal: soft; No guarding, No rebound; tenderness (llq) Rectal: deferred Back: normal inspection, no CVA tenderness Extremities: non-tender, normal inspection Neurologic/Psychiatric: 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 nml as tested, alert, normal mood/affect, oriented x 3 Skin: normal color, warm/dry Lymphatic: no adenopathy Data Review Labs Laboratory Tests 12/16/19 05:02: White Blood Count 22.3H, Red Blood Count 3.45L, Hemoglobin 11.6, Hematocrit 34L, Mean Corpuscular Volume 98, Mean Corpuscular Hemoglobin 34, Mean Corpuscular Hemoglobin Concent 34, Red Cell Distribution Width 13.5, Platelet Count 338, Mean Platelet Volume 9.8, Neutrophils (%) (Auto) 88H, Lymphocytes (%) (Auto) 6L, Monocytes (%) (Auto) 6, Eosinophils (%) (Auto) 1, Basophils (%) (Auto) 0, Neutrophils # (Auto) 19.6H, Lymphocytes # (Auto) 1.3, Monocytes # (Auto) 1.3H, Eosinophils # (Auto) 0.1, Basophils # (Auto) 0.0 Assessment/Plan Assessment/Plan Assessment/Plan LLQ ABDOMINAL PAIN ACUTE DIVERTICULITIS NPO IV HYDRATION UNASYN/FLAGYL REPEAT LABS CONSERVATIVE MANAGEMENT PLAN COLONOSCOPY OUTPATIENT ABOUT 6-8 WEEKS Clinical Quality Measures DVT/VTE Risk/Contraindication: Risk Factor Score Per Nursin RFS Level Per Nursing on Admit: 4+=Very High STEPHANY TELLEZ DO Dec 16, 2019 11:19
[2019-12-16 12:00] VITALS: BP 99/62
--- NOTE | 2019-12-16 12:50 | NUR ---
Dr Lyles here to see pt. no new orders rec'd
--- NOTE | 2019-12-16 13:06 | Progress Note ---
Standard Progress Note Progress Notes/Assess & Plan Date Seen by a Provider: Dec 16, 2019 Time Seen by a Provider: 13:00 Progress/Assessment & Plan Patient doing better today, NPO per surgery rec. Pain is better, and afebrile since 0300 this AM. Vital Sign - Last 24 Hours 12/15/19 12/15/19 12/15/19 12/15/19 13:50 14:15 14:15 15:20 Temp 37.4 37.4 37.4 Pulse 118 118 118 Resp 16 16 16 B/P (MAP) 129/67 (87) 129/67 Pulse Ox 100 100 100 O2 Delivery Room Air Room Air Room Air Room Air 12/15/19 12/15/19 12/15/19 12/15/19 16:21 18:30 20:02 21:00 Temp 37.8 38.6 37.8 Pulse 113 107 Resp 20 16 B/P (MAP) 124/75 (91) 111/69 (83) Pulse Ox 99 99 O2 Delivery Room Air Room Air Room Air 12/15/19 12/16/19 12/16/19 12/16/19 23:28 03:09 08:01 08:20 Temp 37.0 37.6 36.6 Pulse 84 89 87 Resp 14 14 20 B/P (MAP) 93/54 (67) 104/59 (74) 110/69 (83) Pulse Ox 62 95 97 97 O2 Delivery Room Air Room Air Room Air Room Air Intake and Output 12/15/19 12/15/19 12/16/19 14:59 22:59 06:59 Intake Total 1065 ml 1200 ml Output Total 0 ml 400 ml Balance 1065 ml 800 ml Diagnosis: Acute diverticulits LLQ pain P: Recommendations per General Surgery Continue NPO and Antibiotics Plan for DC once improvement in pain and afebrile 24 hrs. RHONA BROOKE DO Dec 16, 2019 13:06
--- NOTE | 2019-12-16 13:25 | NUR ---
RN in room hanging abx. Pt notably shivering violently. Pt alert and oriented and states she is freezing. Warm blankets provided. Pt verbalizes feeling better. Temporal temp obtained, 36.6C.
--- NOTE | 2019-12-16 14:46 | NUR ---
Pt continues shivering and states it has happened at least one other time since this RN was last in room. Oral temp taken, 37.4C. Pt still reports feeling chilled. No other signs of distress noted
--- NOTE | 2019-12-16 15:09 | NUR ---
Dr Lyles called to discuss pt shivering and updated on all vitals and assessments. unsure of cause and suggests calling Dr. Sotomayor for guidance.
--- NOTE | 2019-12-16 15:21 | NUR ---
Dr. Sotomayor called per Dr. Lyles's suggestion. Dr. Sotomayor suggests checking blood sugar and consulting medical if needed.
[2019-12-16 16:00] VITALS: BP 116/60
[2019-12-16 20:30] VITALS: BP 114/59
[2019-12-16 23:53] VITALS: BP 116/60
[2019-12-17 04:45] VITALS: BP 100/60
[2019-12-17] MEDS: KETOROLAC 15 MG/ML VIAL IVP PRN ×3 (04:45→17:37)
[2019-12-17 05:27] LABS: HEMOGLOBIN 10.4 G/DL (11.5-16.0); MEAN PLATELET VOLUME 10.2 FL (7.4-10.4); RED CELL DISTRIBUTION WIDTH 19.3 % (10.0-14.5); WHITE BLOOD COUNT 15.2 10^3/uL (4.3-11.0)
[2019-12-17] MEDS: AMPICILLIN/SULBACTAM INJECTION 1.5 GM in NS (IVPB) 100 ML IV SCH ×3 (05:27→22:02)
[2019-12-17 05:38] LABS: CHLORIDE 109 MMOL/L (98-107); POTASSIUM 3.4 MMOL/L (3.6-5.0); SODIUM 142 MMOL/L (135-145)
[2019-12-17 05:39] LABS: CALCIUM 8.5 MG/DL (8.5-10.1)
[2019-12-17 05:40] LABS: GLUCOSE 84 MG/DL (70-105)
[2019-12-17 05:41] LABS: TOTAL PROTEIN 5.6 GM/DL (6.4-8.2)
[2019-12-17 05:42] LABS: BILIRUBIN,TOTAL 0.5 MG/DL (0.1-1.0); CARBON DIOXIDE 20 MMOL/L (21-32)
[2019-12-17 05:44] LABS: ALKALINE PHOSPHATASE 98 U/L (40-136); CREATININE SERUM 0.73 MG/DL (0.60-1.30); GFR ESTIMATED > 60
[2019-12-17 05:45] LABS: BUN/CREATININE RATIO 21
[2019-12-17 05:47] LABS: ALANINE AMINOTRANSFERASE 22 U/L (0-55); MAGNESIUM 1.7 MG/DL (1.6-2.4)
[2019-12-17] MEDS: NS IV 1000 ML 1,000 ML IV SCH ×3 (06:05→22:02)
[2019-12-17] MEDS: metroNIDAZOLE 500MG/100ML IVPB 100 ML IV SCH ×3 (06:05→22:02)
--- NOTE | 2019-12-17 08:26 | Progress Note - Surgery ---
Subjective Date Seen by a Provider: Dec 17, 2019 Time Seen by a Provider: 06:46 Subjective/Events-last exam Feeling a little better today. Had nausea yesterday afternoon. Pain moderate lower abdomen and feels gassy. Passing flatus. No bm. WBC down 15.2 . Denies n/v fever sweats chills shortness of breath or chest pain at this time. Objective Exam Vital Signs Date Time Temp Pulse Resp B/P (MAP) Pulse Ox O2 Delivery O2 Flow Rate FiO2 12/17/19 04:45 36.6 86 16 100/60 (73) 95 Room Air 12/16/19 23:53 36.8 85 20 116/60 (78) 95 Room Air 12/16/19 21:00 95 Room Air 12/16/19 20:30 37.1 88 16 114/59 (77) 94 Room Air 12/16/19 16:00 37.2 98 20 116/60 (78) 98 Room Air 12/16/19 12:00 36.6 76 20 99/62 (74) 95 Room Air I & O 12/17/19 07:00 Intake Total 2900 ml Output Total 950 ml Balance 1950 ml Capillary Refill : Less Than 3 Seconds General Appearance: No Apparent Distress HEENT: PERRL/EOMI Neck: Full Range of Motion, Normal Inspection, Non Tender Respiratory: Chest Non Tender, Lungs Clear Cardiovascular: Regular Rate, Rhythm, No Edema Gastrointestinal: soft; No guarding, No rebound; tenderness (llq) Extremity: Non Tender, No Calf Tenderness Neurologic/Psychiatric: Alert, Oriented x3, No Motor/Sensory Deficits, Normal Mood/Affect, community board member II-XII Norm as Tested Skin: Normal Color, Warm/Dry Lymphatic: No Adenopathy Results Lab Laboratory Tests 12/16/19 15:30: Glucometer 115H 12/17/19 04:51: White Blood Count 15.2H, Red Blood Count 3.23L, Hemoglobin 10.4L, Hematocrit 31L , Mean Corpuscular Volume 97, Mean Corpuscular Hemoglobin 32, Mean Corpuscular Hemoglobin Concent 33, Red Cell Distribution Width 19.3H, Platelet Count 279, Mean Platelet Volume 10.2, Sodium Level 142, Potassium Level 3.4L, Chloride Level 109H, Carbon Dioxide Level 20L, Anion Gap 13, Blood Urea Nitrogen 15, Creatinine 0.73, Estimat Glomerular Filtration Rate > 60, BUN/Creatinine Ratio 21, Glucose Level 84, Calcium Level 8.5, Corrected Calcium 9.3, Magnesium Level 1.7, Total Bilirubin 0.5, Aspartate Amino Transf (AST/SGOT) 18, Alanine Aminotransferase (ALT/SGPT) 22, Alkaline Phosphatase 98, Total Protein 5.6L, Albumin 3.0L Assessment/Plan Assessment/Plan Assessment/Plan LLQ ABDOMINAL PAIN ACUTE DIVERTICULITIS LEUKOCYTOSIS NPO IV HYDRATION WBC trending down continue UNASYN/FLAGYL REPEAT LABS in am CONSERVATIVE MANAGEMENT PLAN COLONOSCOPY OUTPATIENT ABOUT 6-8 WEEKS Clinical Quality Measures DVT/VTE Risk/Contraindication: Risk Factor Score Per Nursin RFS Level Per Nursing on Admit: 4+=Very High STEPHANY TELLEZ DO Dec 17, 2019 08:26
[2019-12-17 08:29] VITALS: BP 119/66
[2019-12-17] MEDS: POTASSIUM CL 10MEQ/50ML IVPB 50 ML IV SCH ×2 (08:58→10:47)
--- NOTE | 2019-12-17 12:45 | NUR ---
REPORT TO [facility]OM[facility] RN
--- NOTE | 2019-12-17 12:51 | NUR ---
NOTE THAT PT HAS REFUSED AM CARES
[2019-12-17 13:31] VITALS: BP 122/77
--- NOTE | 2019-12-17 15:07 | NUR ---
PT SITTING UP IN THE CHAIR, NEW BAG OF FLUIDS HUNG AND INFUSING; SEE EMAR FOR FURTHER.
[2019-12-17 17:40] VITALS: BP 145/80
--- NOTE | 2019-12-17 18:15 | NUR ---
PT UP AMBULATING IN THE HALLWAYS.
[2019-12-17 19:30] VITALS: BP 148/85
[2019-12-17] MEDS: ACETAMINOPHEN 500 MG TAB (TYLENOL) PO PRN (22:02)
[2019-12-17 23:05] VITALS: BP 126/70
[2019-12-18 03:56] LABS: HEMOGLOBIN 10.5 G/DL (11.5-16.0); MEAN PLATELET VOLUME 9.5 FL (7.4-10.4); RED CELL DISTRIBUTION WIDTH 13.5 % (10.0-14.5)
[2019-12-18 04:00] VITALS: BP 125/64
[2019-12-18 04:03] LABS: CHLORIDE 111 MMOL/L (98-107); POTASSIUM 3.1 MMOL/L (3.6-5.0); SODIUM 143 MMOL/L (135-145)
[2019-12-18 04:04] LABS: CALCIUM 8.3 MG/DL (8.5-10.1)
[2019-12-18 04:05] LABS: GLUCOSE 70 MG/DL (70-105)
[2019-12-18 04:06] LABS: CARBON DIOXIDE 18 MMOL/L (21-32)
[2019-12-18 04:09] LABS: CREATININE SERUM 0.65 MG/DL (0.60-1.30); GFR ESTIMATED > 60
[2019-12-18 04:10] LABS: BUN/CREATININE RATIO 25
[2019-12-18 04:11] LABS: MAGNESIUM 1.8 MG/DL (1.6-2.4)
[2019-12-18] MEDS: KETOROLAC 15 MG/ML VIAL IVP PRN (05:18)
[2019-12-18] MEDS: AMPICILLIN/SULBACTAM INJECTION 1.5 GM in NS (IVPB) 100 ML IV SCH ×3 (05:22→21:53)
--- NOTE | 2019-12-18 08:20 | NUR ---
DR. BROOKE TO PT'S BEDSIDE.
--- NOTE | 2019-12-18 08:42 | Progress Note ---
Standard Progress Note Progress Notes/Assess & Plan Date Seen by a Provider: Dec 18, 2019 Time Seen by a Provider: 08:35 Progress/Assessment & Plan Patient reports doing ok this AM. Had some pain requiring toradol overnight. Had BM x 3 this AM. Reports ambulating without pain. Abd: soft/ mildly distended/ no rebound/ BS + x 4 Laboratory Tests Test 12/18/19 03:37 Range/Units White Blood Count 16.0 H 4.3-11.0 10^3/uL Red Blood Count 3.20 L 4.35-5.85 10^6/uL Hemoglobin 10.5 L 11.5-16.0 G/DL Hematocrit 32 L 35-52 % Mean Corpuscular Volume 99 80-99 FL Mean Corpuscular Hemoglobin 33 25-34 PG Mean Corpuscular Hemoglobin Concent 33 32-36 G/DL Red Cell Distribution Width 13.5 10.0-14.5 % Platelet Count 361 130-400 10^3/uL Mean Platelet Volume 9.5 7.4-10.4 FL Sodium Level 143 135-145 MMOL/L Potassium Level 3.1 L 3.6-5.0 MMOL/L Chloride Level 111 H 98-107 MMOL/L Carbon Dioxide Level 18 L 21-32 MMOL/L Anion Gap 14 5-14 MMOL/L Blood Urea Nitrogen 16 7-18 MG/DL Creatinine 0.65 0.60-1.30 MG/DL Estimat Glomerular Filtration Rate > 60 BUN/Creatinine Ratio 25 Glucose Level 70 70-105 MG/DL Calcium Level 8.3 L 8.5-10.1 MG/DL Magnesium Level 1.8 1.6-2.4 MG/DL Diagnosis: Acute diverticulits LLQ pain P: Recommendations per General Surgery Starting sips of CLD and Antibiotics Plan for DC once improvement in pain and afebrile 24 hrs. RHONA BROOKE DO Dec 18, 2019 08:42
--- NOTE | 2019-12-18 09:00 | NUR ---
PREVIOUS RN WAS CONTACTED AND HARSH WAS ADMIN AROUND 0630 THIS AM.
[2019-12-18 09:28] VITALS: BP 146/80
[2019-12-18] MEDS: POTASSIUM CL 10MEQ/50ML IVPB 50 ML IV SCH ×4 (09:31→18:38)
[2019-12-18] MEDS: NS IV 1000 ML 1,000 ML IV SCH ×2 (09:38→18:38)
--- NOTE | 2019-12-18 09:45 | NUR ---
THIS RN TO BEDSIDE. VS OBTAINED. IV MEDS AND NEW BAG OF IV FLUIDS ADMIN; SEE EMAR FOR FURTHER. INITIAL SHIFT ASSESSMENT COMPLETED; SEE INTERVENTION FOR FURTHER. HAT EMPTIED OUT OF THE BATHROOM. SMALL CUP OF FRESH ICE WATER AND ICE CHIPS PROVIDED TO PT. POC REVIEWED, PT VERBALIZES UNDERSTANDING AND DENIES ANY FURTHER NEEDS OR QUESTIONS AT THIS TIME. CALL LIGHT WITHIN REACH.
--- NOTE | 2019-12-18 09:50 | NUR ---
R/T NOTIFIED OF NEED FOR INCENTIVE SPIROMETRY.
--- NOTE | 2019-12-18 09:52 | NUR ---
DR. TELLEZ TO PT'S BEDSIDE.
--- NOTE | 2019-12-18 10:50 | NUR ---
MARY RT, TO PT'S BEDSIDE.
[2019-12-18 12:00] VITALS: BP 177/87
--- NOTE | 2019-12-18 14:20 | NUR ---
PT UP WALKING IN THE HALLWAYS.
[2019-12-18] MEDS: metroNIDAZOLE 500MG/100ML IVPB 100 ML IV SCH ×2 (14:49→22:54)
--- NOTE | 2019-12-18 16:11 | Progress Note - Surgery ---
Subjective Date Seen by a Provider: Dec 18, 2019 Time Seen by a Provider: 09:17 Subjective/Events-last exam Feeling little better today. 2 liquid stools this morning. Still with pain but not as bad. Ambulating. Has a little nausea last night, but improved. Denies fever sweats chills shortness of breath or chest pain. WBC minimal up today from yesterday. Objective Exam Vital Signs Date Time Temp Pulse Resp B/P (MAP) Pulse Ox O2 Delivery O2 Flow Rate FiO2 12/18/19 12:00 36.5 84 20 177/87 (117) 97 Room Air 12/18/19 09:40 Room Air 12/18/19 09:28 36.2 82 18 146/80 (102) 96 Room Air 12/18/19 04:00 36.3 78 18 125/64 (84) 95 Room Air 12/17/19 23:05 36.8 89 18 126/70 (88) 96 Room Air 12/17/19 21:00 98 Room Air 12/17/19 19:30 37.1 87 18 148/85 (106) 98 Room Air 12/17/19 17:40 36.9 89 18 145/80 (101) 97 Room Air I & O 12/18/19 07:00 Intake Total 2200 ml Output Total 1050 ml Balance 1150 ml Capillary Refill : Less Than 3 Seconds General Appearance: No Apparent Distress HEENT: PERRL/EOMI Neck: Full Range of Motion, Normal Inspection, Non Tender Respiratory: Chest Non Tender, Lungs Clear Cardiovascular: Regular Rate, Rhythm, No Edema Gastrointestinal: soft; No guarding, No rebound; tenderness (llq) Extremity: Non Tender, No Calf Tenderness Neurologic/Psychiatric: Alert, Oriented x3, No Motor/Sensory Deficits, Normal Mood/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, 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 Tested Skin: Normal Color, Warm/Dry Lymphatic: No Adenopathy Results Lab Laboratory Tests 12/18/19 03:37: White Blood Count 16.0H, Red Blood Count 3.20L, Hemoglobin 10.5L, Hematocrit 32L , Mean Corpuscular Volume 99, Mean Corpuscular Hemoglobin 33, Mean Corpuscular Hemoglobin Concent 33, Red Cell Distribution Width 13.5, Platelet Count 361, Mean Platelet Volume 9.5, Sodium Level 143, Potassium Level 3.1L, Chloride Level 111H, Carbon Dioxide Level 18L, Anion Gap 14, Blood Urea Nitrogen 16, Creatinine 0.65, Estimat Glomerular Filtration Rate > 60, BUN/Creatinine Ratio 25, Glucose Level 70, Calcium Level 8.3L, Magnesium Level 1.8 Assessment/Plan Assessment/Plan Assessment/Plan LLQ ABDOMINAL PAIN ACUTE DIVERTICULITIS LEUKOCYTOSIS HYPOKALEMIA Sips of clears IV HYDRATION UNASYN/FLAGYL REPEAT LABS in am CONSERVATIVE MANAGEMENT Replace K PLAN COLONOSCOPY OUTPATIENT ABOUT 6-8 WEEKS Clinical Quality Measures DVT/VTE Risk/Contraindication: Risk Factor Score Per Nursin RFS Level Per Nursing on Admit: 4+=Very High STEPHANY TELLEZ DO Dec 18, 2019 16:11
--- NOTE | 2019-12-18 16:15 | NUR ---
PT UP AMBULATING HALLWAYS, DENIES ANY NEEDS AT THIS TIME.
[2019-12-18] MEDS ORDERED: POTASSIUM CL 10MEQ/50ML IVPB 50 ML IV ONE ×2 (16:38→18:31)
[2019-12-18 16:45] VITALS: BP 153/80
[2019-12-18 19:50] VITALS: BP 168/78
--- NOTE | 2019-12-18 19:50 | NUR ---
pt sitting up in chair, assessment completed. pt denies any discomfort at this time. b/p elevated. pt denies any headache.
--- NOTE | 2019-12-18 20:00 | NUR ---
notified of elevated b/p. order to start home b/p medication received.
--- NOTE | 2019-12-18 20:15 | NUR ---
pt up in the [facility] [address] walking. discussed plan of care. pt denies any questions at this time.
[2019-12-18] MEDS ORDERED: HYDROCHLOROTHIAZIDE 25 MG (HCTZ) TAB ONE (20:19)
[2019-12-18] MEDS ORDERED: lisINopril 20 MG (PRINIVIL) TABLET ONE (20:20)
[2019-12-18] MEDS: HYDROCHLOROTHIAZIDE 25 MG (HCTZ) TAB PO SCH (20:29)
[2019-12-18] MEDS: lisINopril 20 MG (PRINIVIL) TABLET PO SCH (20:29)
--- NOTE | 2019-12-18 23:00 | NUR ---
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 notified, order for joel received.
[2019-12-18] MEDS ORDERED: ONDANSETRON 4 MG/2 ML (SDV) Z0FRAN ONE (23:01)
[2019-12-18] MEDS ORDERED: ONDANSETRON 4 MG/2 ML (SDV) Z0FRAN IVP ONE (23:15)
[2019-12-18 23:30] VITALS: BP 160/77
[2019-12-19] MEDS: ACETAMINOPHEN 500 MG TAB (TYLENOL) PO PRN ×2 (02:42→15:55)
[2019-12-19] MEDS: NS IV 1000 ML 1,000 ML IV SCH ×4 (02:43→22:14)
--- NOTE | 2019-12-19 02:51 | NUR ---
pt c/o headache. tylenol given po
[2019-12-19 02:53] VITALS: BP 131/73
[2019-12-19] MEDS: metroNIDAZOLE 500MG/100ML IVPB 100 ML IV SCH ×3 (06:00→15:55)
[2019-12-19 06:06] LABS: HEMOGLOBIN 10.9 G/DL (11.5-16.0); RED CELL DISTRIBUTION WIDTH 13.7 % (10.0-14.5); WHITE BLOOD COUNT 13.6 10^3/uL (4.3-11.0)
[2019-12-19 06:19] LABS: CHLORIDE 108 MMOL/L (98-107); POTASSIUM 3.7 MMOL/L (3.6-5.0); SODIUM 141 MMOL/L (135-145)
[2019-12-19 06:20] LABS: CALCIUM 8.2 MG/DL (8.5-10.1); GLUCOSE 75 MG/DL (70-105)
[2019-12-19 06:22] LABS: CARBON DIOXIDE 18 MMOL/L (21-32)
[2019-12-19 06:24] LABS: CREATININE SERUM 0.63 MG/DL (0.60-1.30); GFR ESTIMATED > 60
[2019-12-19 06:25] LABS: BUN/CREATININE RATIO 16
[2019-12-19 06:26] LABS: MAGNESIUM 1.8 MG/DL (1.6-2.4)
[2019-12-19] MEDS: KETOROLAC 15 MG/ML VIAL IVP PRN ×3 (06:35→20:16)
--- NOTE | 2019-12-19 06:40 | NUR ---
pt still c/o headache, states her lower abdomen is starting to cramp. States the pain is different than before. Toradol given.
[2019-12-19 06:41] VITALS: BP 137/67
[2019-12-19] MEDS: AMPICILLIN/SULBACTAM INJECTION 1.5 GM in NS (IVPB) 100 ML IV SCH ×3 (07:20→23:31)
[2019-12-19 07:35] VITALS: BP 104/52
[2019-12-19] MEDS ORDERED: lisINopril 40 MG (PRINIVIL) TABLET PO SCH (09:00)
--- NOTE | 2019-12-19 09:10 | NUR ---
Dr Sotomayor here to see pt. Discussed POC with pt. New order for clear liquids.
--- NOTE | 2019-12-19 09:52 | NUR ---
Dr Lyles here to see pt.
[2019-12-19 12:00] VITALS: BP 139/66
[2019-12-19 16:00] VITALS: BP 137/65
--- NOTE | 2019-12-19 20:00 | NUR ---
Pt. ambulating in hallway, tolerating well. To desk, asking questions regarding POC & when her last VS were taken, states she saw drs late & did not see RN "hardly at all today", pt then states she feels she is getting confused. Reassurance given. Notes later reviewed, both drs rounded in am & RN appeared to be in room approx q 2-3 hrs & charted on pt.
[2019-12-19 20:16] VITALS: BP 143/72
[2019-12-19] MEDS: CATHETER FLUSH 10 ML SYR IV PRN (20:16)
--- NOTE | 2019-12-19 20:16 | NUR ---
Pt. back in room in [facility], VSS, Toradol offered & given for c/o h/a, pt. states Tylenol "made me sick to my stomach & did not help earlier". Hot tea given per request. Shift assessment completed & POC reviewed, questions answered & reassurance given, will cont. to monitor.
[2019-12-19] MEDS ORDERED: ENOXAPARIN 30 MG/0.3 ML (LOVENOX) SYR SC SCH (23:00)
--- NOTE | 2019-12-19 23:00 | Progress Note - Surgery ---
Subjective Date Seen by a Provider: Dec 19, 2019 Time Seen by a Provider: 08:19 Subjective/Events-last exam Had nausea last night. Did not sleep well. Abdominal pain about a 3/10. Had bm. Currently tired. Denies n/v fever sweats chills shortness of breath or chest pain. WBC down to 13.6 k, Potassium improved. Objective Exam Vital Signs Date Time Temp Pulse Resp B/P (MAP) Pulse Ox O2 Delivery O2 Flow Rate FiO2 12/19/19 20:16 36.5 64 18 143/72 (95) 98 Room Air 12/19/19 16:00 36.6 62 18 137/65 (89) 95 Room Air 12/19/19 12:00 36.6 63 18 139/66 (90) 96 Room Air 12/19/19 07:35 94 Room Air 12/19/19 07:35 36.6 64 18 104/52 (69) 94 Room Air 12/19/19 06:41 36.5 62 18 137/67 (90) 96 Room Air 12/19/19 02:53 36.7 80 18 131/73 (92) 95 Room Air 12/18/19 23:30 36.6 86 18 160/77 (104) 96 Room Air I & O 12/19/19 07:00 Intake Total 2250 ml Output Total 2100 ml Balance 150 ml Capillary Refill : Less Than 3 SecondsLess Than 3 Seconds General Appearance: No Apparent Distress HEENT: PERRL/EOMI Neck: Full Range of Motion, Normal Inspection, Non Tender Respiratory: Chest Non Tender, Lungs Clear Cardiovascular: Regular Rate, Rhythm, No Edema Gastrointestinal: soft; No guarding, No rebound; tenderness (llq minimal) Extremity: Non Tender, No Calf Tenderness Neurologic/Psychiatric: Alert, Oriented x3, No Motor/Sensory Deficits, Normal Mood/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, 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 Norm as Tested Skin: Normal Color, Warm/Dry Lymphatic: No Adenopathy Results Lab Laboratory Tests 12/19/19 05:51: White Blood Count 13.6H, Red Blood Count 3.31L, Hemoglobin 10.9L, Hematocrit 33L , Mean Corpuscular Volume 99, Mean Corpuscular Hemoglobin 33, Mean Corpuscular Hemoglobin Concent 33, Red Cell Distribution Width 13.7, Platelet Count 407H, Mean Platelet Volume 9.0, Sodium Level 141, Potassium Level 3.7, Chloride Level 108H, Carbon Dioxide Level 18L, Anion Gap 15H, Blood Urea Nitrogen 10, Creatinine 0.63, Estimat Glomerular Filtration Rate > 60, BUN/Creatinine Ratio 16, Glucose Level 75, Calcium Level 8.2L, Magnesium Level 1.8 Assessment/Plan Assessment/Plan Assessment/Plan LLQ ABDOMINAL PAIN ACUTE DIVERTICULITIS LEUKOCYTOSIS HYPOKALEMIA clears if tolerates IV HYDRATION UNASYN/FLAGYL REPEAT LABS in am CONSERVATIVE MANAGEMENT PLAN COLONOSCOPY OUTPATIENT ABOUT 6-8 WEEKS Clinical Quality Measures DVT/VTE Risk/Contraindication: Risk Factor Score Per Nursin RFS Level Per Nursing on Admit: 4+=Very High STEPHANY TELLEZ DO Dec 19, 2019 23:00
[2019-12-20] VITALS (7 sets, daily range): BP systolic 139–162; BP diastolic 77–92
[2019-12-20] MEDS: metroNIDAZOLE 500MG/100ML IVPB 100 ML IV SCH ×3 (00:40→16:39)
--- NOTE | 2019-12-20 00:40 | NUR ---
Pt. put call light on, sitting on couch in dark crying, states "Something is wrong, I feel like something is wrong, I don't know". Pt. denies pain, states bloating feels better, reassurance given that nothing seems worse. Pt. concerned about ordered Lovenox injection, again discussed why it is given & that it is just precautionary more than likely d/t her being in bed more than usual & repeated the information again, pt. verbalized understanding. Pt. also states she was up to BR & voided & had "diarrhea & there was blood, I want you to look at it", no blood noted, only a diarrhea stool, reassurance again given. Encouraged pt. to get back in bed, SCDs on, talked w/pt another 10 minutes, encouraged to sleep, will cont. to monitor.
--- NOTE | 2019-12-20 05:40 | NUR ---
Called Dr. Sotomayor after calling Dr. Lyles, requested nausea med, new order for Camila sellers'snehal. Update given including pt's BP, will give BP meds early, also informed of pt's episode of crying & that pt. seems anxious, states she does not know her POC. Will give Zofran & BP meds.
[2019-12-20] MEDS: ONDANSETRON 4 MG/2 ML (SDV) Z0FRAN IVP PRN (05:53)
[2019-12-20] MEDS: lisINopril 20 MG (PRINIVIL) TABLET PO SCH (05:54)
[2019-12-20] MEDS: HYDROCHLOROTHIAZIDE 25 MG (HCTZ) TAB PO SCH (05:54)
[2019-12-20] MEDS: NS IV 1000 ML 1,000 ML IV SCH ×5 (06:05→22:20)
[2019-12-20 06:07] LABS: HEMOGLOBIN 10.9 G/DL (11.5-16.0); MEAN PLATELET VOLUME 9.5 FL (7.4-10.4); RED CELL DISTRIBUTION WIDTH 13.4 % (10.0-14.5)
[2019-12-20 06:18] LABS: CHLORIDE 107 MMOL/L (98-107); POTASSIUM 3.2 MMOL/L (3.6-5.0); SODIUM 140 MMOL/L (135-145)
[2019-12-20 06:19] LABS: CALCIUM 8.1 MG/DL (8.5-10.1); GLUCOSE 88 MG/DL (70-105)
[2019-12-20 06:21] LABS: CARBON DIOXIDE 21 MMOL/L (21-32)
[2019-12-20 06:23] LABS: CREATININE SERUM 0.58 MG/DL (0.60-1.30); GFR ESTIMATED > 60
[2019-12-20 06:24] LABS: BUN/CREATININE RATIO 12
[2019-12-20] MEDS: AMPICILLIN/SULBACTAM INJECTION 1.5 GM in NS (IVPB) 100 ML IV SCH ×2 (07:35→15:58)
--- NOTE | 2019-12-20 08:00 | NUR ---
A.M. ASSESSMENT COMPLETED. VSS. DOING WELL. CONTINUES ON CLEAR LIQUID DIET. DENIES ANY PAIN. ENCOURAGED AMBULATION.
--- NOTE | 2019-12-20 10:00 | NUR ---
VOIDING WELL. STATES HAD A DIARRHEA STOOL. AMBULATING WELL.
--- NOTE | 2019-12-20 12:40 | NUR ---
WARM BLANKET APPLIED. SITTING UP TO EAT LUNCH OF CLEAR LIQUID. PT HAS AMBULATED X2 IN THE SANDERS THIS MORNING. PLEASANT AFFECT. DOING WELL,
--- NOTE | 2019-12-20 15:30 | NUR ---
DR. TELLEZ HERE TO SEE PT.
--- NOTE | 2019-12-20 16:30 | NUR ---
AMBULATING IN THE SANDERS WITH SPOUSE.
[2019-12-20] MEDS: POTASSIUM CL 10MEQ/50ML IVPB 50 ML IV SCH ×3 (17:48→22:25)
--- NOTE | 2019-12-20 17:50 | NUR ---
ICE PACK TO IV SITE FOR C/O BURNING R/T POTASSIUM.
--- NOTE | 2019-12-20 18:45 | NUR ---
STATES FEELS MUCH BETTER. AMBULATING IN THE SANDERS.
--- NOTE | 2019-12-20 19:05 | Progress Note - Surgery ---
Subjective Date Seen by a Provider: Dec 20, 2019 Time Seen by a Provider: 15:24 Subjective/Events-last exam Feeling better. WBC down some more. Drinking liquids but having nausea. +bm. Ambulating. Feels bloated. Denies fever sweats chills shortness of breath or chest pain. Objective Exam Vital Signs Date Time Temp Pulse Resp B/P (MAP) Pulse Ox O2 Delivery O2 Flow Rate FiO2 12/20/19 13:30 145/78 (100) 12/20/19 12:44 36.7 68 18 161/77 (105) 97 Room Air 12/20/19 08:00 96 Room Air 12/20/19 08:00 36.7 83 18 152/78 (102) 96 Room Air 12/20/19 05:30 37.0 86 18 162/92 (115) 97 Room Air 12/20/19 00:41 37.2 79 18 150/82 (104) 95 Room Air 12/19/19 20:16 36.5 64 18 143/72 (95) 98 Room Air 12/19/19 20:16 94 Room Air I & O 12/20/19 07:00 Intake Total 3200 ml Output Total 2600 ml Balance 600 ml Capillary Refill : Less Than 3 SecondsLess Than 3 Seconds General Appearance: No Apparent Distress HEENT: PERRL/EOMI Neck: Full Range of Motion, Normal Inspection, Non Tender Respiratory: Chest Non Tender, Lungs Clear Cardiovascular: Regular Rate, Rhythm, No Edema Gastrointestinal: soft, distended (slight bloating); No guarding, No rebound; tenderness (llq minimal) Extremity: Non Tender, No Calf Tenderness, Pedal Edema Neurologic/Psychiatric: Alert, Oriented x3, No Motor/Sensory Deficits, Normal Mood/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, 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 Norm as Tested Skin: Normal Color, Warm/Dry Lymphatic: No Adenopathy Results Lab Laboratory Tests 12/20/19 05:21: White Blood Count 12.0H, Red Blood Count 3.32L, Hemoglobin 10.9L, Hematocrit 33L , Mean Corpuscular Volume 99, Mean Corpuscular Hemoglobin 33, Mean Corpuscular Hemoglobin Concent 33, Red Cell Distribution Width 13.4, Platelet Count 456H, Mean Platelet Volume 9.5, Sodium Level 140, Potassium Level 3.2L, Chloride Level 107, Carbon Dioxide Level 21, Anion Gap 12, Blood Urea Nitrogen 7, Creatinine 0.58L, Estimat Glomerular Filtration Rate > 60, BUN/Creatinine Ratio 12, Glucose Level 88, Calcium Level 8.1L Assessment/Plan Assessment/Plan Assessment/Plan LLQ ABDOMINAL PAIN ACUTE DIVERTICULITIS LEUKOCYTOSIS HYPOKALEMIA wbc trending down and feeling better. clears as tolerates IV HYDRATION decrease fluids to 100 mL/hr UNASYN/FLAGYL Replace K REPEAT LABS in am CONSERVATIVE MANAGEMENT PLAN COLONOSCOPY OUTPATIENT ABOUT 6-8 WEEKS Clinical Quality Measures DVT/VTE Risk/Contraindication: Risk Factor Score Per Nursin RFS Level Per Nursing on Admit: 4+=Very High STEPHANY TELLEZ DO Dec 20, 2019 19:05
[2019-12-20] MEDS: ENOXAPARIN 40 MG/0.4 ML (LOVENOX) SYR SC SCH (20:58)
[2019-12-21] VITALS (11 sets, daily range): BP systolic 115–172; BP diastolic 72–88
[2019-12-21] MEDS: POTASSIUM CL 10MEQ/50ML IVPB 50 ML IV SCH (00:53)
[2019-12-21] MEDS: AMPICILLIN/SULBACTAM INJECTION 1.5 GM in NS (IVPB) 100 ML IV SCH ×3 (02:27→21:33)
[2019-12-21] MEDS: metroNIDAZOLE 500MG/100ML IVPB 100 ML IV SCH ×3 (03:18→20:15)
[2019-12-21 05:45] LABS: HEMOGLOBIN 10.9 G/DL (11.5-16.0); MEAN PLATELET VOLUME 9.1 FL (7.4-10.4); RED CELL DISTRIBUTION WIDTH 13.5 % (10.0-14.5); WHITE BLOOD COUNT 10.6 10^3/uL (4.3-11.0)
[2019-12-21] MEDS: NS IV 1000 ML 1,000 ML IV SCH ×3 (06:03→21:34)
[2019-12-21 06:04] LABS: CHLORIDE 105 MMOL/L (98-107); POTASSIUM 3.5 MMOL/L (3.6-5.0); SODIUM 140 MMOL/L (135-145)
[2019-12-21 06:05] LABS: CALCIUM 8.1 MG/DL (8.5-10.1); GLUCOSE 96 MG/DL (70-105)
[2019-12-21 06:07] LABS: CARBON DIOXIDE 24 MMOL/L (21-32)
[2019-12-21 06:09] LABS: GFR ESTIMATED > 60
[2019-12-21 06:10] LABS: BUN/CREATININE RATIO 5
[2019-12-21] MEDS: lisINopril 20 MG (PRINIVIL) TABLET PO SCH (07:59)
[2019-12-21] MEDS: HYDROCHLOROTHIAZIDE 25 MG (HCTZ) TAB PO SCH (07:59)
[2019-12-21] MEDS: HYDROcodone/APAP 5 MG/325 MG (LORTAB) TAB PO PRN (08:00)
--- NOTE | 2019-12-21 08:00 | NUR ---
initial shift assessment completed, see interventions for further. reports passing flatus, with 2 loose BM's this a.m. c/o FRANCO in frontal area, requesting p.o. medication. POC reviewed, states understanding.
--- NOTE | 2019-12-21 08:34 | NUR ---
here. new orders received for soft diet, abd/pelvis CT with contrast.
--- NOTE | 2019-12-21 09:16 | NUR ---
to CT via w/c with ultrasound staff @ side.
[2019-12-21] MEDS ORDERED: HOLD METFORMIN - RECEIVED CONTRAST 20 ML VIAL IV SCH (09:45)
[2019-12-21] MEDS ORDERED: IOHEXOL 350 MG/ML 100 ML (OMNIPAQUE 350) VIAL IV ONE (09:45)
[2019-12-21] MEDS ORDERED: NS 100 ML (IVPB) BAG IV ONE (09:45)
--- NOTE | 2019-12-21 10:00 | NUR ---
up to shower. bed linens changed.
--- NOTE | 2019-12-21 10:11 | Diagnostic Imaging Report ---
PROCEDURE: CT abdomen and pelvis with contrast, rule out appendicitis. TECHNIQUE: Multiple contiguous axial images were obtained through the abdomen and pelvis after the administration of intravenous contrast. All CT scans use one or more of the following dose optimizing techniques: automated exposure control, MA and/or KvP adjustment based on a patient size and exam type, or iterative reconstruction. INDICATION: Followup diverticulitis Comparison is made to study of 12/15/2019. There has been development of mild bilateral pleural effusion with subjacent atelectasis in the visualized lung bases. There is low-density throughout the liver indicating hepatic steatosis. There is an approximately 1.5 cm lucency in the inferior right hepatic lobe which likely represents a cyst. No gallbladder, pancreatic, adrenal gland or splenic abnormality is seen. Kidneys are stable and unremarkable in appearance. 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 There is diffuse edema and/or inflammation throughout the subcutaneous tissues. There is a continued irregular partially cystic lesion in the left adnexal region. This could represent pedunculated uterine mass versus ovarian lesion. Possibility of separate thick walled abscess related to diverticulitis is somewhat less likely. There has been interval reduction in the thickening and fluid of the endometrial canal since previous study. Partially opacified urinary bladder is unremarkable. There is no evidence of pathologic adenopathy within the abdomen or pelvis. IMPRESSION: There is continued complex partial cystic region in the left adnexa. This appears to demonstrate communication with the uterus and may represent pedunculated lesion such as degenerating fibroid. Possibility of ovarian lesion or tubo-ovarian abscess cannot be completely excluded. There has been increase in edema and/or inflammation throughout the subcutaneous tissues as well as the omentum and mesentery. Bilateral pleural fluid has developed. Consideration could be given to laparoscopy if indicated. Fluid distention of the endometrial canal has resolved. 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 Dictated by: Dictated on workstation # [id number]
--- NOTE | 2019-12-21 10:45 | NUR ---
Lt.hand IV site leaking. site dc'd. #20g IV to Rt.FA x2 attempt by this RN. site patent, secured with opsite. IVF's restarted.
--- NOTE | 2019-12-21 11:55 | NUR ---
downstairs for sono via w/c with ultrasound staff @ side.
--- NOTE | 2019-12-21 12:32 | NUR ---
Returned to room from ultrasound.
--- NOTE | 2019-12-21 12:40 | NUR ---
here. order received to obtain OR consent for dx lap.
--- NOTE | 2019-12-21 13:35 | Diagnostic Imaging Report ---
PROCEDURE: US Non-ob pelvis comp/trans. TECHNIQUE: Multiple realtime grayscale images were obtained of the pelvis in various projections endovaginally. Transabdominal imaging was also performed. INDICATION: Left adnexal fluid collection noted on recent CT. The study is performed for further evaluation. COMPARISON: Correlation is made with CT study performed earlier today. FINDINGS: Uterus is anteverted measuring 9.2 x 5.2 x 5.6 cm. Large amount of endometrial fluid seen on previous ultrasound from 12/15/2019 has significantly improved. Endometrium is approximately 7 mm in thickness. No residual endometrial fluid collection is identified. Right ovary was not visualized. There is a complex region in the left adnexa measuring 5.8 x 4.2 x 4.8 cm. This appears to be mixed solid and fluid containing, corresponding to the CT abnormality. This is inseparable from the left aspect of the uterus. No free fluid is seen. IMPRESSION: 1. Complex mixed solid and cystic area in the left adnexa, corresponding with the CT abnormality. This is inseparable from the left uterine body. This could represent tubo-ovarian abscess or abscess from adjacent bowel. 2. Significant improvement in the endometrium since exam six days earlier. Dictated by: Dictated on workstation # [id number]
--- NOTE | 2019-12-21 13:45 | Progress Note ---
Standard Progress Note Progress Notes/Assess & Plan Date Seen by a Provider: Dec 21, 2019 Time Seen by a Provider: 12:20 Progress/Assessment & Plan Patient reports doing ok this AM. Has some distention. BM still not regular and elevation in platelets has prompted Dr. Sotomayor to order CT. Abd: soft/ mildly distended/ no rebound/ BS hypoactive Diagnosis: Left sided pelvic abscess- discussed findings with Radiology(Dr. Mackay) and Dr. Sotomayor. Questionable involvement of adnexa such as a TOA vs, diverticular abscess. US findings do not help delineate this either. Due to worsening size of this area, discussed with patient proceeding with diagnostic laparoscopy. We discussed the possibilities of LSO, vs, Hysterectomy w/BSO, vs bowel involvement requiring resection and postoperative colostomy, with need for potential subsequent procedure after healing. She understands the nature of this procedure and is will to move forward given the delay in improvement. P: Recommendations per General Surgery Diagnostic Laparoscopy today- patient NPO RHONA BROOKE DO Dec 21, 2019 1:45 pm
--- NOTE | 2019-12-21 14:03 | NUR ---
Ambulating in hallways. no c/o's voiced.
[2019-12-21] MEDS ORDERED: fentaNYL INJECTION 100 MCG/2 ML AMP ONE (15:16)
[2019-12-21] MEDS ORDERED: MIDAZOLAM 2 MG/2 ML (VERSED) VIAL ONE (15:17)
[2019-12-21] MEDS ORDERED: DEXAMETHASONE 10 MG/ML (DECADRON) 1 ML VIAL ONE (15:18)
[2019-12-21] MEDS ORDERED: LIDOCAINE PF 2% 5 ML (XYLOCAINE) VIAL ONE (15:19)
[2019-12-21] MEDS ORDERED: proPOfol 200 MG/20 ML (DIPRIVAN) VIAL IV ONE (15:19)
[2019-12-21] MEDS ORDERED: SEVOFLURANE (ULTANE) 15 ML INHAL SOLN ONE ×6 (15:20→18:33)
[2019-12-21] MEDS ORDERED: ONDANSETRON 4 MG/2 ML (SDV) Z0FRAN ONE (15:20)
--- NOTE | 2019-12-21 16:06 | NUR ---
Pt down to OR via bed with OR staff & son @ side. pt stable with no sx's of distress noted.
[2019-12-21] MEDS ORDERED: BUPIVACAINE 0.25% 30 ML (SENSORCAINE) VIAL ONE (16:09)
[2019-12-21] MEDS ORDERED: HYDROmorphone 2 MG/ML VIAL (DILAUDID) ONE (17:03)
[2019-12-21] MEDS ORDERED: LACTATED RINGERS 1,000 ML IV PRN (17:15)
[2019-12-21] MEDS ORDERED: morphine INJ 4 MG/ML 1 ML (VIAL/SYRINGE) IVP PRN (18:15)
[2019-12-21] MEDS ORDERED: NEOSTIGMINE 3 MG/3 ML VIAL ONE (18:33)
[2019-12-21] MEDS ORDERED: GLYCOPYRROLATE 0.2 MG/ML (ROBINUL) 2 ML VIAL ONE (18:33)
[2019-12-21] MEDS ORDERED: HYDROmorphone 2 MG/ML VIAL (DILAUDID) IV ONE (18:45)
[2019-12-21] MEDS ORDERED: ONDANSETRON 4 MG/2 ML (SDV) Z0FRAN IVP PRN (18:45)
--- NOTE | 2019-12-21 19:24 | Progress Note - Surgery ---
Subjective Date Seen by a Provider: Dec 21, 2019 Time Seen by a Provider: 08:11 Subjective/Events-last exam Patient having bm and passing flatus. Feels bloated. Having nausea, but tolerating liquids. WBC down, Platelet increasing. Denies fever sweats chills shortness of breath or chest pain at this time. Objective Exam Vital Signs Date Time Temp Pulse Resp B/P (MAP) Pulse Ox O2 Delivery O2 Flow Rate FiO2 12/21/19 19:10 17 127/83 (98) 98 OxyMask 4 12/21/19 19:01 14 124/72 (89) 98 OxyMask 8 12/21/19 18:50 14 136/82 (100) 96 OxyMask 8 12/21/19 18:40 14 125/88 (100) 95 OxyMask 10 12/21/19 18:38 36.1 16 141/80 (100) 95 OxyMask 10 12/21/19 18:38 OxyMask 10 12/21/19 13:30 36.6 83 18 166/80 (108) 94 Room Air 12/21/19 08:00 36.6 79 18 172/85 (114) 95 Room Air 12/21/19 08:00 95 Room Air 12/21/19 02:24 37.1 86 18 134/80 (98) 95 Room Air 12/20/19 20:58 37.0 68 18 153/79 (103) 98 Room Air 12/20/19 20:58 98 Room Air I & O 12/21/19 07:00 Intake Total 5740 ml Output Total 3250 ml Balance 2490 ml Capillary Refill : Less Than 3 SecondsLess Than 3 Seconds General Appearance: No Apparent Distress HEENT: PERRL/EOMI Neck: Full Range of Motion, Normal Inspection, Non Tender Respiratory: Chest Non Tender, Lungs Clear Cardiovascular: Regular Rate, Rhythm, No Edema Gastrointestinal: soft, distended (slight bloating); No guarding, No rebound; tenderness (llq minimal) Extremity: Non Tender, No Calf Tenderness, Pedal Edema Neurologic/Psychiatric: Alert, Oriented x3, No Motor/Sensory Deficits, Normal Mood/Affect, 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 Norm as Tested Skin: Normal Color, Warm/Dry Lymphatic: No Adenopathy Results Lab Laboratory Tests 12/21/19 05:05: White Blood Count 10.6, Red Blood Count 3.35L, Hemoglobin 10.9L, Hematocrit 33L, Mean Corpuscular Volume 99, Mean Corpuscular Hemoglobin 33, Mean Corpuscular Hemoglobin Concent 33, Red Cell Distribution Width 13.5, Platelet Count 505H, Mean Platelet Volume 9.1, Sodium Level 140, Potassium Level 3.5L, Chloride Level 105, Carbon Dioxide Level 24, Anion Gap 11, Blood Urea Nitrogen 3L, Creatinine 0.60, Estimat Glomerular Filtration Rate > 60, BUN/Creatinine Ratio 5, Glucose Level 96, Calcium Level 8.1L Assessment/Plan Assessment/Plan Assessment/Plan LLQ ABDOMINAL PAIN ACUTE DIVERTICULITIS LEUKOCYTOSIS HYPOKALEMIA Patient slowly improving, but still not feeling as I would expect. Her wbc trending down and platelet gradually increasing. Suspect may have abscess. Will or ct scan abd/pelvis to further evaluate. Follow up on ct scan appears to have abscess in left lower quadrant, either TOA or diverticular, discussed with Dr. Lyles and wanted ordered transvaginal u/s to further evaluate which did not give any clearer picture of pathology. He will plan on taking to OR for diagnostic laparoscopy. Clinical Quality Measures DVT/VTE Risk/Contraindication: Risk Factor Score Per Nursin RFS Level Per Nursing on Admit: 4+=Very High STEPHANY TELLEZ DO Dec 21, 2019 19:24
--- NOTE | 2019-12-21 19:27 | Progress Note-Post Operative ---
Post-Operative Progess Note Surgeon (s)/Beef Pluck Trimmer (s) Surgeon STEPHANY TELLEZ DO Beef Pluck Trimmer: Dr. Acevedo Pre-Operative Diagnosis Perforated sigmoid colon Post-Operative Diagnosis same Procedure & Operative Findings Date of Procedure 12/21/19 Procedure Performed/Findings Exploratory laparotomy with sigmoid resection and end colostomy (Naya) Anesthesia Type general Estimated Blood Loss Estimated blood loss (mL): see anesthesia record for total Specimens/Packing Specimens Removed sigmoid colon Packing: Surgicel STEPHANY TELLEZ DO Dec 21, 2019 19:27
--- NOTE | 2019-12-21 19:45 | NUR ---
PT TO ROOM AT THIS TIME. REPORT FROM MARCO MICHAEL. PT ALERT AND ORIENTED. NO DISTRESS NOTED. SEE ASSESSMENT INTERVENTION.
[2019-12-21] MEDS: ENOXAPARIN 40 MG/0.4 ML (LOVENOX) SYR SC SCH (21:34)
[2019-12-22] VITALS (10 sets, daily range): BP systolic 103–129; BP diastolic 53–99
[2019-12-22] MEDS: metroNIDAZOLE 500MG/100ML IVPB 100 ML IV SCH ×3 (03:18→18:13)
--- NOTE | 2019-12-22 03:19 | NUR ---
Mat Protocol Score of 2 Albuterol 2.5 mg PRN for SOB oxygen to keep sats greater than 90% RT will re-evaluate in 72 hours or sooner if needed Addendum: 12/22/19 at 0320 by SUE DAVISON RT Amended: Links added.
[2019-12-22] MEDS ORDERED: RT-ALBUTEROL SULF 2.5 MG/3 ML PRE-MIX VIAL INH PRN (03:30)
[2019-12-22] MEDS: HYDROcodone/APAP 5 MG/325 MG (LORTAB) TAB PO PRN ×3 (04:29→20:42)
[2019-12-22] MEDS: AMPICILLIN/SULBACTAM INJECTION 1.5 GM in NS (IVPB) 100 ML IV SCH ×3 (04:30→20:42)
--- NOTE | 2019-12-22 04:59 | OPERATIVE REPORT ---
DATE OF SERVICE: 12/21/2019 PREOPERATIVE DIAGNOSIS: Perforation of sigmoid colon. POSTOPERATIVE DIAGNOSIS: Perforation of sigmoid colon. PROCEDURE: Exploratory laparotomy, sigmoid resection with end colostomy, Naya procedure. ESTIMATED BLOOD LOSS: See anesthesia record for total. SURGEON: Stephany Sotomayor DO COMMUNITY MARKETING MANAGER: Dr. Acevedo to assist in retraction, dissection and closure and identification of anatomy. INDICATIONS: The patient is a 64-year-old female, who has been in the hospital with acute diverticulitis or ovarian pathology after having an IUD removed in [place]. The patient with inflammation of the sigmoid area and the left fallopian tube and ovary, which she has been on IV antibiotics and her white count continued to improve. The patient had a repeat CT scan today, which demonstrated either a diverticular abscess or tubo-ovarian abscess. Dr. Lyles plan on taking for diagnostic laparoscopy. Please see for initial portion of the surgery, which after he began, I did assist him during a surgery where a sigmoid perforation was identified. Once the abdomen was opened through the midline incision, the sigmoid colon had phlegmon surrounding it and 1/4 sized perforation was identified. Proximal to this area of the sigmoid colon was mobilized and dissected around and a contour stapler was fired on the proximal portion. The LigaSure was then used to continue to remove the colon from the mesentery distally, removing the segment of colon that had been perforated and the distal to the perforation near the rectosigmoid junction, the colon was dissected around and a contour stapler was fired, dividing the colon. LigaSure was then used to remove the rest of the mesentery until the colon was removed, the stitch was placed on the distal aspect. Irrigation was used to irrigate and suction the abdomen. A 19 Jeremías drain was placed down in the pelvis near the left side where the abscess cavity was present. A piece of Surgicel was placed where there was just minimal oozing. Hemostasis was achieved. The drain was brought out through a stab incision on the right side of the abdomen. At this point, the skin and subcutaneous tissue was removed in a circular fashion for colostomy formation. The fascia was divided in a cruciate fashion and the peritoneum was divided and the abdomen was then entered. The end of the proximal resection was then brought up through the incision. The abdomen was then closed using 1-0 looped PDS in a running fashion. The skin was then stapled after this was irrigated and suctioned. The colostomy was then opened and brooked. An ostomy appliance was applied and sterile bandages were applied. The patient tolerated procedure well without any complications. She was taken to recovery room in stable condition. Job ID: [id number] DocumentID: [id number] Dictated Date: 12/21/2019 19:34:53 Vulcanized Fiber Unit Operator Date: 12/22/2019 04:58:48 Dictated By: STEPHANY SOTOMAYOR DO
[2019-12-22 06:25] LABS: BASOPHILS % (AUTO) 0 % (0-10); EOSINOPHILS % (AUTO) 0 % (0-10); HEMATOCRIT 35 % (35-52); HEMOGLOBIN 11.8 G/DL (11.5-16.0); LYMPHOCYTES # (AUTO) 0.8 X 10^3 (1.0-4.0); LYMPHOCYTES % (AUTO) 3 % (12-44); MEAN CORPUSCULAR HEMOGLOBIN 33 PG (25-34); MEAN CORPUSCULAR HGB CONC 34 G/DL (32-36); MEAN CORPUSCULAR VOLUME 98 FL (80-99); MEAN PLATELET VOLUME 9.2 FL (7.4-10.4); MONOCYTES % (AUTO) 4 % (0-12); NEUTROPHILS # (AUTO) 22.6 X 10^3 (1.8-7.8); NEUTROPHILS % (AUTO) 92 % (42-75); PLATELET COUNT 551 10^3/uL (130-400); RED CELL DISTRIBUTION WIDTH 13.5 % (10.0-14.5); WHITE BLOOD COUNT 24.5 10^3/uL (4.3-11.0)
[2019-12-22 06:42] LABS: BUN/CREATININE RATIO 7; CALCIUM 7.9 MG/DL (8.5-10.1); CARBON DIOXIDE 26 MMOL/L (21-32); CHLORIDE 103 MMOL/L (98-107); GFR ESTIMATED > 60; GLUCOSE 143 MG/DL (70-105); POTASSIUM 3.4 MMOL/L (3.6-5.0); SODIUM 140 MMOL/L (135-145)
[2019-12-22 06:45] LABS: BAND NEUTROPHILS 2 %; LYMPHOCYTES % (MANUAL) 4 %; MONOCYTES % (MANUAL) 4 %; NEUTROPHILS % (MANUAL) 90 %
--- NOTE | 2019-12-22 07:00 | Anesthesia-General Post-Op ---
General Patient Condition Mental Status/LOC: Same as Preop Cardiovascular: Satisfactory Nausea/Vomiting: Absent Respiratory: Satisfactory Pain: Controlled Complications: Absent Post Op Complications Complications None Follow Up Care/Instructions Patient Instructions None needed. Anesthesia/Patient Condition Patient Condition Patient is doing well, no complaints, stable vital signs, no apparent adverse anesthesia problems. No complications reported per nursing. MEREDITH BRIDGES CRNA Dec 22, 2019 07:00
--- NOTE | 2019-12-22 07:31 | OPERATIVE REPORT ---
DATE OF SERVICE: PROCEDURE: 1. Operative laparoscopy with lysis of adhesions, conversion to laparotomy, identification and liberation of left pelvic abscess. 2. Left partial sigmoid colon resection due to perforation diverting ostomy. SURGEON: Ricardo Lyles DO CO-SURGEON CONSULTED DURING THE PROCEDURE: Fernando Sotomayor DO and Josesito Acevedo DO ANESTHESIA: General endotracheal. ESTIMATED BLOOD LOSS: 200. URINE OUTPUT: 1500 mL clear at the end of procedure. CRYSTALLOID: 1200 mL of lactated Ringer's solution. FINDINGS: Extensive adhesions and inflammation of the pelvis including the left pelvic sidewall and ovarian adnexal complex in the left descending, sigmoid colon. SPECIMEN SENT: Left ovarian abscess wall and adnexal complex. Other pathology seen by general surgery, defer to their note. INDICATIONS FOR PROCEDURE: This 64-year-old female is a patient that was admitted on suspicion of acute colitis or diverticulitis last . There was also a concern of possible tuboovarian abscess. At the time of admission, she was on her 6 day of IV antibiotics and bowel rest, was improving; however, still had a significant amount of distention. Repeat imaging was ordered today by general surgery, which revealed a more loculated and pronounced area in the left pelvis; however, it could not be differentiated from adnexal versus sigmoid colon. Despite radiology performing CT and ultrasound, we were still uncertain at the time of the start of the procedure. I discussed with the patient due to a halt in her improvement proceeding with surgical intervention. We discussed percutaneous drainage; however, this was not an option as radiology did not feel comfortable in doing this with the proximity to the bowel. Risk of diagnostic laparoscopy was discussed with the patient in detail including risks of bleeding, infection, damage to surrounding structures including, but not limited to bowel, bladder, ureter, kidneys, possible need for reoperation, postoperative complications, recovery timeframe. We discussed the possibility of laparotomy and colostomy placement at the time of the surgery. The patient demonstrated understanding and reasoning for this procedure, was agreeable to proceed. Consent was obtained preoperatively and the patient was taken to the operating room. OPERATIVE REPORT IN DETAIL: Once in the operating room, anesthesia was found to be adequate, placed in dorsal lithotomy position, prepped and draped in normal sterile fashion. A timeout was performed. Johnson catheter was placed using sterile technique. A weighted speculum was inserted in the patient's vagina. Right angle retractor was used to visualize cervix, which was grasped at 12 o'clock position using a long Allis clamp. A Kronner uterine manipulator was then placed within the uterus. The balloon was deployed. The Allis clamp and the weighted speculum was then removed. I then performed a change of gloves and took my attention to the abdomen where infraumbilically, I infiltrated this area using 0.25% Marcaine and make a 5 mm incision with a knife and directed Veress needle through the incision until intraperitoneal placement was confirmed using a saline drop test. I proceeded with insufflation using CO2 gas and opening pressure of 5 mmHg was noted proceeded to max pressure of 15 mmHg, at which point I removed the Veress needle and introduced a 5 mm blunt laparoscopic trocar. Once this was in place, I am able to confirm intraperitoneal placement using the laparoscope. I had the patient placed in steep Trendelenburg, I am able to free the bowel from the vesicouterine peritoneum and the anterior peritoneal wall. I then placed a suprapubic trocar. This is another 5 mm trocar. Skin was infiltrated using 0.25% Marcaine. A 5 mm incision was made and the trocars placed under direct visualization of laparoscope. Once I am able to do this, I can take down some of these adhesions; however, I do need a third trocar. This trocar site was placed in the left lower quadrant in similar fashion under direct visualization and laparoscope. Once these trocars are in place, I used blunt dissection with a blunt grasper as well as suction toy maker to take down these adhesions and able to visualize the fundus of the uterus. The left fallopian tube appears normal, but edematous and inflamed. The right tube and ovary are inspected easily at that point as the right side of the posterior cul-de-sac can be access. The left side is adhesed and stuck with the sigmoid colon in a complex that is adhesed together, at which point I asked Dr. Sotomayor to assist me. In his assistance, we are able to dissect some of this abscess cyst wall down. However, we reached our limitations with laparoscopic instruments and safety of the patient. We decided to proceed with laparotomy, insufflation and laparoscopic instruments released. At that point, we make a midline incision from the suprapubic trocar to the infraumbilical trocar using a knife and carried down to the layer of fascia using Bovie cautery. The fascial incision was extended laterally using Bovie cautery, which allows us access the rectus linea to separate this with blunt traction and access the peritoneum using blunt dissection. We then placed a Yuly self-retaining retractor to the abdomen allowing visualization of the pelvic anatomy. The patient placed in Trendelenburg once again. I am able to bluntly dissect at that point using my feeling that cyst wall that we had identified on laparoscopy. Once this was removed, we identified that there is a hole in the sigmoid colon, at which point, I have the surgeons take over the case for a partial resection and diverting colostomy. The surgeons, Dr. Sotomayor and Dr. Acevedo take over the case and to its completion at that point. Please see their dictation for completion of the procedure and closure. Job ID: [id number] DocumentID: [id number] Dictated Date: 12/21/2019 18:22:15 Blade Filer Date: 12/22/2019 03:56:30 Dictated By: DO NANDINI CROOK
[2019-12-22] MEDS: HYDROCHLOROTHIAZIDE 25 MG (HCTZ) TAB PO SCH (08:34)
[2019-12-22] MEDS: lisINopril 20 MG (PRINIVIL) TABLET PO SCH (08:34)
--- NOTE | 2019-12-22 08:35 | NUR ---
B/P 100/53. HCTZ AND LISINOPRIL HELDPER DR. BROOKE'S ORDER. AT BEDSIDE.
[2019-12-22] MEDS: NS IV 1000 ML 1,000 ML IV SCH ×3 (08:55→20:57)
--- NOTE | 2019-12-22 14:29 | Progress Note - Surgery ---
Subjective Date Seen by a Provider: Dec 22, 2019 Time Seen by a Provider: 09:00 Subjective/Events-last exam Patient sore. Up in chair. Pain controlled. No nausea or emesis. Using IS. WBC 24 No new complaints, denies fever sweats chills shortness of breaht or chest pain. Objective Exam Vital Signs Date Time Temp Pulse Resp B/P (MAP) Pulse Ox O2 Delivery O2 Flow Rate FiO2 12/22/19 11:44 37.2 80 20 109/67 (81) 98 Nasal Cannula 1.00 12/22/19 09:05 93 Nasal Cannula 1.00 12/22/19 09:05 37.2 104 93 24 12/22/19 09:00 Nasal Cannula 2.00 12/22/19 08:32 37.2 92 20 103/53 (70) 94 Room Air 12/22/19 04:32 36.6 101 15 112/72 (85) 93 Nasal Cannula 2.00 12/22/19 03:08 37.4 76 99 28 12/22/19 00:01 36.8 89 16 120/75 (90) 94 Nasal Cannula 2.00 12/21/19 21:00 Nasal Cannula 2.00 12/21/19 20:06 36.2 76 15 129/80 (96) 99 Nasal Cannula 2.00 12/21/19 19:30 16 115/78 (90) 93 Room Air 12/21/19 19:20 Room Air 12/21/19 19:20 16 129/83 (98) 93 Room Air 12/21/19 19:10 OxyMask 4 12/21/19 19:10 17 127/83 (98) 98 OxyMask 4 12/21/19 19:01 14 124/72 (89) 98 OxyMask 8 12/21/19 18:58 OxyMask 6 12/21/19 18:50 14 136/82 (100) 96 OxyMask 8 12/21/19 18:48 OxyMask 8 12/21/19 18:40 14 125/88 (100) 95 OxyMask 10 12/21/19 18:38 36.1 16 141/80 (100) 95 OxyMask 10 12/21/19 18:38 OxyMask 10 I & O 12/22/19 07:00 Intake Total 690 ml Output Total 2595 ml Balance -1905 ml Capillary Refill : Less Than 3 SecondsLess Than 3 Seconds General Appearance: No Apparent Distress (fatigued) HEENT: PERRL/EOMI Neck: Full Range of Motion, Normal Inspection, Non Tender Respiratory: Chest Non Tender, Lungs Clear Cardiovascular: Regular Rate, Rhythm, No Edema Gastrointestinal: soft; No guarding, No rebound; tenderness (incisional, ostomy light serosang output, midline bandage with slight blood shadowing), other (drain serosang) Extremity: Non Tender, No Calf Tenderness, Pedal Edema Neurologic/Psychiatric: Alert, Oriented x3, No Motor/Sensory Deficits, Normal 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, 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 Norm as Tested Skin: Normal Color, Warm/Dry Lymphatic: No Adenopathy Results Lab Laboratory Tests 12/22/19 06:08: White Blood Count 24.5H, Red Blood Count 3.58L, Hemoglobin 11.8, Hematocrit 35, Mean Corpuscular Volume 98, Mean Corpuscular Hemoglobin 33, Mean Corpuscular Hemoglobin Concent 34, Red Cell Distribution Width 13.5, Platelet Count 551H, Mean Platelet Volume 9.2, Neutrophils (%) (Auto) 92H, Lymphocytes (%) (Auto) 3L, Monocytes (%) (Auto) 4, Eosinophils (%) (Auto) 0, Basophils (%) (Auto) 0, Neutrophils # (Auto) 22.6H, Lymphocytes # (Auto) 0.8L, Monocytes # (Auto) 1.0, Eosinophils # (Auto) 0.0, Basophils # (Auto) 0.0, Neutrophils % (Manual) 90, Lymphocytes % (Manual) 4, Monocytes % (Manual) 4, Band Neutrophils 2, Sodium Level 140, Potassium Level 3.4L, Chloride Level 103, Carbon Dioxide Level 26, Anion Gap 11, Blood Urea Nitrogen 4L, Creatinine 0.60, Estimat Glomerular Filtration Rate > 60, BUN/Creatinine Ratio 7, Glucose Level 143H, Calcium Level 7.9L Assessment/Plan Assessment/Plan Assessment/Plan LLQ ABDOMINAL PAIN ACUTE DIVERTICULITIS LEUKOCYTOSIS HYPOKALEMIA S/P laparoscopy with lysis of adhesions to exploration and liperation of left pelvic abscess with sigmoid resection end colostomy Continue antibiotics Pain control Lovenox scd's for dvt prophylaxis ambulate Incentive spirometer Consult medicine await bowel function and advance diet PT replace K Mat protocol Clinical Quality Measures DVT/VTE Risk/Contraindication: Risk Factor Score Per Nursin RFS Level Per Nursing on Admit: 4+=Very High STEPHANY ETLLEZ DO Dec 22, 2019 14:29
[2019-12-22] MEDS: RT-ALBUTEROL SULF 2.5 MG/3 ML PRE-MIX VIAL INH SCH ×2 (15:24→19:09)
[2019-12-22] MEDS: POTASSIUM CL 10MEQ/50ML IVPB 50 ML IV SCH ×2 (15:31→16:47)
--- NOTE | 2019-12-22 15:31 | Physical Therapy Evaluation ---
PT Evaluation-General Medical Diagnosis Admission Date Dec 17, 2019 at 09:04 Medical Diagnosis: S/P laparoscopy Onset Date: Dec 17, 2019 Therapy Diagnosis Therapy Diagnosis: impaired mobility, strength, endurance Height/Weight Height (Feet): 5 Height (Inches): 3.00 Weight (Pounds): 157 Weight (Ounces): 0.0 Precautions Precautions/Isolations: Standard Precautions Weight Bear Status Right Lower Extremity: Right Weight Bearing/Tolerated Left Lower Extremity: Left Weight Bearing/Tolerated Referral Physician: Светлана Reason for Referral: Evaluation/Treatment Medical History Additional Medical History Cardiovascular No High Cholesterol, Hypertension Neurological No 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 System Hx 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 Disorders: No Sexually Transmitted Disease: No HIV/AIDS: No Female 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 7-Kkmyvemxzq-lxyocco completes the activity by him/herself with no assistance from a helper. 5-Set-up or Clean-up Assistance-helper sets up or cleans up; patient completes activity. [place] assists only prior to or following the activity. 4-Supervision or Touching Assistance-helper provides verbal cues and/or touching/steadying and/or contact guard assistance as patient completes activity. Assistance may be provided throughout the activity or intermittently. 3-Partial/Moderate Assistance-helper does LESS THAN HALF the effort. [place] lifts, holds or supports trunk or limbs, but provides less than half the effort. 2-Substantial/Maximal Assistance-helper does MORE THAN HALF the effort. [place] lifts or holds trunk or limbs and provides more than half the effort. 8-Iqsfwmdpx-ptvhqs does ALL the effort. Patient does none of the effort to complete the activity. Or, the assistance of 2 or more helpers is required for the patient to complete the activity. If activity was not attempted, code reason: 7-Patient Refused. 9-Not Applicable-not attempted and the patient did not perform the activity before the current illness, exacerbation or injury. 10-Not Attempted due to Environmental Limitations-(lack of equipment, weather restraints, etc.). 88-Not Attempted due to Medical Conditions or Safety Concerns. Bed Mobility: 6 Transfers (B,C,W/C): 6 Gait: 6 Stairs: 6 Indoor Mobility (Ambulation): Independent Stairs: Independent PT Evaluation-Current Subjective Patient in bed pre tx agrees to PT, has pain of 3-4/10 in abdomen Pt/Family Goals "to improve my endurance" Objective Patient Orientation: Person, Place, Situation Attachments: IV ROM/Strength ROM Lower Extremities WNL Strength Lower Extremities BLE 5/5 gross, except for hip flexion which is 3+/5 on the left and 4/5 on the right Sensory Vision: Functional Hearing: Functional Sensation Right Lower Extremit: Intact Sensation Left Lower Extremity: Intact Transfers Roll Left to Right (QC): 6 Sit to Lying (QC): 3 Lying to Sitting/Side of Bed(Q: 3 Sit to Stand (QC): 4 Chair/Cdr-sx-Szuxs Xfer(QC): 4 Patient needs assist with one leg getting into and out of bed, SBA for sit to stand and transfers. Gait Does the Patient Walk?: Yes Mode of Locomotion: Walk Anticipated Mode of Locomotion: Walk Walk 10 feet (QC): 4 Walk 50 ft with 2 Turns(QC): 4 Walk 150 ft (QC): 4 Distance: 150' Gait Assistive Device: FWW Comments/Gait Description Slow but steady ambulation, SBA. Patient states she has also been ambulating with nursing but without the walker and states ambulation is much more comfortable using the walker. Balance Sitting Static: Normal Sitting Dynamic: Normal Standing Static: Normal Standing Dynamic: Normal Treatment BLE supine exercises x10 (AP, QS, HS) Assessment/Needs Patient has impaired mobility, strength, endurance. She has steady ambulation using a rolling walker. Patient BTB post tx with nurse call, phone, tray, all needs met. Rehab Potential: Fair PT Penitentiary Goals [place] [employer] [place] Goals PT Penitentiary Goals Time Frame: Dec 29, 2019 Roll Left & Right (QC): 6 Sit to Lying (QC): 6 Lying-Sitting on Side/Bed(QC): 6 Sit to Stand (QC): 6 Chair/Ach-uh-Fvhjf Xfer(QC): 6 Toilet Transfer (QC): 6 Walk 10 feet (QC): 6 Walk 50ft with 2 Turns (QC): 6 Walk 150 ft (QC): 6 PT Plan Problem List Problem List: Activity Tolerance, Functional Strength, Safety, Balance, Gait, Transfer, Bed Mobility Treatment/Plan Treatment Plan: Continue Plan of Care Treatment Plan: Bed Mobility, Education, Functional Activity Radha, Functional Strength, Gait, Safety, Therapeutic Exercise, Transfers Treatment Duration: Dec 29, 2019 Frequency: 6 times per week Estimated Hrs Per Day: .25 hour per day Patient and/or Family Agrees t: Yes Safety Risks/Education Patient Education: Gait Training, Transfer Techniques, Correct Positioning, Safety Issues Teaching Recipient: Patient Teaching Methods: Demonstration, Discussion Response to Teaching: Reinforcement Needed Discharge Recommendations Plan Patient will perform bed mobility and transfer training, balance and endurance training, functional strengthening, stair training, gait training, and education, to improve functional mobility and independence at home. Therapy Discharge Recommendati: Home & Family Time/GCodes Time In: 1508 Time Out: 1521 Total Billed Treatment Time: 13 Total Billed Treatment 1 visit PAUL GRIMES PT Dec 22, 2019 15:31
[2019-12-22] MEDS: ENOXAPARIN 40 MG/0.4 ML (LOVENOX) SYR SC SCH (20:42)
[2019-12-22] MEDS: ONDANSETRON 4 MG/2 ML (SDV) Z0FRAN IVP PRN (20:42)
--- NOTE | 2019-12-22 22:00 | NUR ---
PT INFORMED THIS RN SHE HAD NOT URINATED SINCE HER STARK WAS PULLED THIS MORNING. PT BLADDER SCANNED AT THIS TIME. SHOWS 50ML IN BLADDER. DR. TELLEZ NOTIFIED OF PT NOT URINATING SINCE STARK REMOVAL. ORDER TO GIVEN 500ML BOLUS OF NORMAL SALINE, INCREASE FLUIDS TO 125ML/HR AND INSERT STARK FOR ACCURATE INTAKE AND OUTPUT.
[2019-12-22] MEDS ORDERED: NS IV 500 ML 500 ML ONE (22:12)
[2019-12-22] MEDS ORDERED: NS IV 500 ML 500 ML IV SCH (22:15)
[2019-12-23] MEDS: RT-ALBUTEROL SULF 2.5 MG/3 ML PRE-MIX VIAL INH SCH (02:44)
[2019-12-23] MEDS: metroNIDAZOLE 500MG/100ML IVPB 100 ML IV SCH (03:09)
[2019-12-23] MEDS: HYDROcodone/APAP 5 MG/325 MG (LORTAB) TAB PO PRN (03:10)
[2019-12-23 04:09] VITALS: BP 112/73
[2019-12-23] MEDS: AMPICILLIN/SULBACTAM INJECTION 1.5 GM in NS (IVPB) 100 ML IV SCH (05:00)
[2019-12-23 05:24] LABS: MEAN PLATELET VOLUME 9.3 FL (7.4-10.4); RED CELL DISTRIBUTION WIDTH 14.1 % (10.0-14.5); WHITE BLOOD COUNT 16.8 10^3/uL (4.3-11.0)
[2019-12-23 05:36] LABS: CHLORIDE 104 MMOL/L (98-107); POTASSIUM 3.4 MMOL/L (3.6-5.0); SODIUM 140 MMOL/L (135-145)
[2019-12-23 05:37] LABS: CALCIUM 7.7 MG/DL (8.5-10.1)
[2019-12-23 05:38] LABS: GLUCOSE 114 MG/DL (70-105)
[2019-12-23 05:40] LABS: CARBON DIOXIDE 26 MMOL/L (21-32)
[2019-12-23 05:42] LABS: CREATININE SERUM 0.63 MG/DL (0.60-1.30); GFR ESTIMATED > 60
[2019-12-23 05:43] LABS: BUN/CREATININE RATIO 8
[2019-12-23 05:44] LABS: MAGNESIUM 1.5 MG/DL (1.6-2.4)
--- NOTE | 2019-12-23 07:14 | Consultation ---
History of Present Illness History of Present Illness Patient Consulted On(darren/time) 12/23/19 07:09 Date Seen by Provider: Dec 23, 2019 Time Seen by Provider: 07:00 Reason for Visit: Medical management History of Present Illness 64-year-old female initially admitted on December 14 following intense left lower quadrant abdominal pain. She was admitted to Dr. Lyles service at that time this was felt to be related to previous IUD removal and D&C that was performed in November 2019. Ultimately she underwent surgery on December [address] Lyles and Dr. Sotomayor. She ultimately had laparoscopy with lysis of adhesions. She was also found to have left pelvic abscess and ultimately had sigmoid resection and end colostomy. Patient is well known to me and has came to office for management of her blood pressure. She reports faithfully taking her lisinopril and hydrochlorothiazide. She is now status post one day from surgery. She reports she would like to get up and do some more walking today. Johnson catheter is in place. She denies any cough or shortness of breath. Allergies and Home Medications Allergies Coded Allergies: No Known Drug Allergies (Unverified , 11/22/19) Home Medications Atorvastatin Calcium 40 Mg Tablet, 40 MG PO DAILY, (Reported) Cholecalciferol (Vitamin D3) 25 Mcg Capsule, 25 MCG PO DAILY, (Reported) Doxycycline Monohydrate 100 Mg Capsule, 100 MG PO BID Prescribed by: RHONA LYLES on 11/28/19 1113 Ibuprofen 600 Mg Tablet, 600 MG PO Q6H Prescribed by: RHONA LYLES on 11/28/19 1046 Lisinopril/Hydrochlorothiazide 1 Each Tablet, 1 EACH PO DAILY, (Reported) Meloxicam 15 Mg Tablet, 15 MG PO DAILY, (Reported) Multivitamin 1 Each Tablet, 1 EACH PO DAILY, (Reported) Pantoprazole Sodium 40 Mg Tablet.dr, 40 MG PO DAILY, (Reported) Vitamin E Mixed 1,000 Unit Capsule, 1,000 UNIT PO DAILY, (Reported) [Mood Free Ultra] , 1 CAP PO DAILY, (Reported) Patient Home Medication List Home Medication List Reviewed: Yes Past Nqymcbb-Djzjnz-Fcwzvz Hx Patient Social History Alcohol Use: Denies Use Alcohol Beverage of Choice: Wine Recreational Drug Use: No Smoking Status: Current Someday Smoker Type Used: Cigarettes 2nd Hand Smoke Exposure: Yes Recent Foreign Travel: No Contact w/Someone Who Travel: No Recent Infectious Disease Expo: No Recent Hopitalizations: Yes (November) Immunizations Up To Date Tetanus Booster (TDap): More than 5yrs PED Vaccines UTD: No Seasonal Allergies Seasonal Allergies: No Past Medical History Surgeries: Yes (d and c) Respiratory: No Pneumonia Currently Using CPAP: No Currently Using BIPAP: No Cardiac: No High Cholesterol, Hypertension Neurological: No : No 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 Disorders: No Female 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 Disorders: Denies 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 Sexually Transmitted Disease: No HIV/AIDS: No Genitourinary: No Gastrointestinal: No Gastroesophageal Reflux Musculoskeletal: No Arthritis, Chronic Back Pain Endocrine: No HEENT: Yes (dry eye syndrome) Loss of Vision: Denies Hearing Impairment: Denies Cancer: No Psychosocial: No Integumentary: No Blood Disorders: No Adverse Reaction/Blood Tranf: No Family Medical History Hypertension 19 MOTHER No Pertinent Family Hx Review of Systems-General Constitutional: see HPI Physical Exam-General Problems Physical Exam Vital Signs Vital Signs - First Documented 12/17/19 12/22/19 04:45 03:08 Temp 36.6 Pulse 86 Resp 16 B/P (MAP) 100/60 (73) Pulse Ox 95 O2 Delivery Room Air FiO2 28 Capillary Refill : Less Than 3 SecondsLess Than 3 Seconds General Appearance: no apparent distress HEENT: pharynx normal (Somewhat dry mucous membranes) Respiratory: lungs clear Cardiovascular: regular rate, rhythm Gastrointestinal: soft, other (Decreased bowel sounds) Rectal: deferred Neurologic/Psychiatric: alert, oriented x 3 Skin: normal color (But she does appear somewhat pale) Assessment/Plan Assessment/Plan Admission Diagnosis/Plan 1. Acute diverticulitis -Surgery managing and she is on Unasyn as well as Flagyl 2. Left-sided pelvic abscess. Also status post IUD removal (after in place 40 years) with D&C Dr. Lyles perform surgery and is managing 3. Status post laparoscopy with lysis of adhesions in the left lower abdomen/pelvis. Sigmoid resection and end colostomy -Dr. Sotomayor following. All appropriate DVT prevention is in place. -Pulmonary status appears well at this time 4. History of hypertension currently well controlled -Her lisinopril and hydrochlorothiazide has been initiated. -Will follow along with you Admission Status: Inpatient Order (span 2 midnights) Clinical Quality Measures DVT/VTE Risk/Contraindication: Risk Factor Score Per Nursin RFS Level Per Nursing on Admit: 4+=Very High GLADIS GRIGGS MD Dec 23, 2019 07:14
[2019-12-23 07:58] VITALS: BP 109/71
[2019-12-23] MEDS: NS IV 1000 ML 1,000 ML IV SCH (08:15)
[2019-12-23] MEDS: lisINopril 20 MG (PRINIVIL) TABLET PO SCH (08:15)
[2019-12-23] MEDS: HYDROCHLOROTHIAZIDE 25 MG (HCTZ) TAB PO SCH (08:15)
== END 2019-12-23 08:58 | disposition swing bed (61) | DRG 331 ==
LOC: WS 13:42 → OBSVTOIN 12-17 09:04 → 4TH 12-21 19:49
PROVIDERS: ADMIT Surgery; ATTEND Surgery
PROC: 0D1E0Z4 Bypass Large Intestine to Cutaneous, Open Approach (ICD-10-PCS; 2019-12-21)
PROC: 0UN14ZZ Release Left Ovary, Percutaneous Endoscopic Approach (ICD-10-PCS; 2019-12-21)
PROC: 0DNW4ZZ Release Peritoneum, Percutaneous Endoscopic Approach (ICD-10-PCS; 2019-12-21)
PROC: 0DBN0ZZ Excision of Sigmoid Colon, Open Approach (ICD-10-PCS; principal; 2019-12-21 16:13)
DX: K57.20 Diverticulitis of large intestine with perforation and abscess without bleeding (principal); N70.93 Salpingitis and oophoritis, unspecified; N73.6 Female pelvic peritoneal adhesions (postinfective); I10 Essential (primary) hypertension; E78.00 Pure hypercholesterolemia, unspecified; K21.9 Gastro-esophageal reflux disease without esophagitis; M19.91 Primary osteoarthritis, unspecified site; E87.6 Hypokalemia; F17.210 Nicotine dependence, cigarettes, uncomplicated; H04.129 Dry eye syndrome of unspecified lacrimal gland; Z53.31 Laparoscopic surgical procedure converted to open procedure
CPT/HCPCS: 36415; 74177; 74178; 76830; 76856; 80048; 80053; 82962; 83735; 85007; 85025; 85027; 94640; 94664; 94760; 99211; G0378

== ENCOUNTER → 2019-12-15 | Outpatient (CLI) | payer MEDICARE ==
[~2019-12-15] MED LIST changes: +DOXY100C42 PO; +IBUP-1773 PO
== END ==
LOC: LAB 11:59
PROVIDERS: ATTEND Obstetrics & Gynecology
DX: R10.9 Unspecified abdominal pain (principal); R42 Dizziness and giddiness

== ENCOUNTER 2019-12-23 08:55 | Inpatient (IN) | payer MEDICARE ==
[~2019-12-23] VITALS: Ht 160 cm; Wt 71.2 kg
[2019-12-23] MEDS ORDERED: ACETAMINOPHEN 500 MG TAB (TYLENOL) PO PRN (09:00)
[2019-12-23] MEDS ORDERED: LACTATED RINGERS 1,000 ML IV PRN (09:00)
[2019-12-23] MEDS ORDERED: AMPICILLIN/SULBACTAM INJECTION 1.5 GM in NS (IVPB) 100 ML IV SCH (09:00)
[2019-12-23] MEDS ORDERED: metroNIDAZOLE 500MG/100ML IVPB 100 ML IV SCH (09:00)
[2019-12-23] MEDS ORDERED: CATHETER FLUSH 10 ML SYR IV PRN (09:00)
[2019-12-23] MEDS ORDERED: HOLD METFORMIN - RECEIVED CONTRAST 20 ML VIAL IV SCH (09:00)
[2019-12-23] MEDS ORDERED: morphine INJ 4 MG/ML 1 ML (VIAL/SYRINGE) IVP PRN (09:00)
--- NOTE | 2019-12-23 09:05 | NUR ---
CHRISTALRICKY Franks admitted to swing bed status to room 418-1, with an admitting diagnosis of SWB P/O ELEVATD WC, L PELVIS ABCESS, POST COLOSTOMY PLACEMENT, on 12/23/19 from acute inpatient status. PT AND OT Therapy to evaluate patient for activity needs. RICKY SIEGEL and/or family introduced to surroundings, call light, bed controls, phone, TV, temperature control, lights, meal times, smoking policy, visitor policy, side rail policy, bathrooms, and showers. Patient rights given to patient in the handbook.. RICKY SIEGEL and/or family member verbalized understanding that [facility] is not responsible for the loss or damage to any personal effects or valuables that are kept in the patients possession during their hospitalization. RICKY SIEGEL and/or family verbalizes understanding of the Interdisciplinary Patient Education. Patient and/or family were informed about the Rapid Response Team and its purpose. Call light with in reach and patient demonstrates understanding of how to use. RICKY SIEGEL reports no further needs at this time. THIS IS A SWING BED TRANSFER -- SAME --
--- NOTE | 2019-12-23 09:38 | NUR ---
DISCUSSED ANTIBIOTICS WITH DR TELLEZ RECEIVED ORDER TO CHANGE TO PIPERACILL/TAZOBACTAM AND D/C AMPICILLIN/SULBACTAM.
[2019-12-23] MEDS: HYDROcodone/APAP 5 MG/325 MG (LORTAB) TAB PO PRN ×3 (10:00→23:11)
[2019-12-23] MEDS ORDERED: RT-ALBUTEROL SULF 2.5 MG/3 ML PRE-MIX VIAL INH PRN (10:00)
[2019-12-23] MEDS: RT-ALBUTEROL SULF 2.5 MG/3 ML PRE-MIX VIAL INH SCH ×3 (10:20→20:16)
--- NOTE | 2019-12-23 10:24 | Physical Therapy Evaluation ---
PT Evaluation-General Medical Diagnosis Admission Date Dec 23, 2019 at 09:04 Medical Diagnosis: s/p laparoscopy Onset Date: Dec 17, 2019 Therapy Diagnosis Therapy Diagnosis: generalized weakness/debility Height/Weight Height (Feet): 5 Height (Inches): 3.00 Weight (Pounds): 157 Weight (Ounces): 0.0 Precautions Precautions/Isolations: Standard Precautions Weight Bear Status Right Lower Extremity: Right Weight Bearing/Tolerated Left Lower Extremity: Left Weight Bearing/Tolerated Referral Physician: Светлана Reason for Referral: Evaluation/Treatment Medical History Pertinent Medical History: HTN Current History SWB status Reviewed History: Yes Social History Home: Single Level Current Living Status: Spouse Entry Into Home: Level Entry Prior Prior Level of Function SCALE: Activities may be completed with or without assistive devices. 0-Cnhpmrvlkm-wenoekr completes the activity by him/herself with no assistance from a helper. 5-Set-up or Clean-up Assistance-helper sets up or cleans up; patient completes activity. [place] assists only prior to or following the activity. 4-Supervision or Touching Assistance-helper provides verbal cues and/or touching/steadying and/or contact guard assistance as patient completes activity. Assistance may be provided throughout the activity or intermittently. 3-Partial/Moderate Assistance-helper does LESS THAN HALF the effort. [place] lifts, holds or supports trunk or limbs, but provides less than half the effort. 2-Substantial/Maximal Assistance-helper does MORE THAN HALF the effort. [place] lifts or holds trunk or limbs and provides more than half the effort. 3-Ifdgxnxnr-pvelat does ALL the effort. Patient does none of the effort to complete the activity. Or, the assistance of 2 or more helpers is required for the patient to complete the activity. If activity was not attempted, code reason: 7-Patient Refused. 9-Not Applicable-not attempted and the patient did not perform the activity before the current illness, exacerbation or injury. 10-Not Attempted due to Environmental Limitations-(lack of equipment, weather restraints, etc.). 88-Not Attempted due to Medical Conditions or Safety Concerns. Bed Mobility: 6 Transfers (B,C,W/C): 6 Gait: 6 Indoor Mobility (Ambulation): Independent Stairs: Independent Prior Devices Use: None PT Evaluation-Current Subjective Patient agrees to PT. 8/10 abdominal pain. Pain Numeric Pain Scale: 8 Location: Lower Location Body Site: Abdomen Pain Description: Acute Objective Patient Orientation: Normal For Age Attachments: Oxygen, Johnson Catheter, IV ROM/Strength ROM Lower Extremities bilateral LE WFL Strength Lower Extremities 4/5 grossly bilateral LE Integumentary/Posture Integumentary refer to nursing notes Bladder Incontinence: Johnson Cath Posture WFL Neuromuscular (Tone, Coordination, Reflexes) grossly intact Sensory Vision: Functional Hearing: Functional Sensation Right Lower Extremit: Intact Sensation Left Lower Extremity: Intact Transfers Roll Left to Right (QC): 5 Sit to Lying (QC): 4 Lying to Sitting/Side of Bed(Q: 4 Sit to Stand (QC): 5 Chair/Wuu-eb-Nnjai Xfer(QC): 5 Toilet Transfer (QC): 5 Car Transfer (QC): 5 Gait Does the Patient Walk?: Yes Mode of Locomotion: Walk Anticipated Mode of Locomotion: Walk Walk 10 feet (QC): 5 Walk 50 ft with 2 Turns(QC): 5 Walk 150 ft (QC): 5 Walking 10ft/uneven surface-QC: 5 Distance: 200' Gait Assistive Device: FWW Comments/Gait Description safe and functional with FWW use Wheelchair Training Does the Pt Use a Wheelchair?: No Wheel 50 ft with 2 turns (QC): 9 Wheel 150 ft (QC): 9 Stairs 1 Step (curb) (QC): 88 4 Steps (QC): 88 12 Steps (QC): 9 patient fatigued prior to stair assessment. Balance Sitting Static: Normal Sitting Dynamic: Normal Standing Static: Normal Standing Dynamic: Normal Picking up an Object (QC): 3 Treatment Bed mobility activity with log rolling and spouse assist to attain sidelying to sit EOB. Gait with FWW with VC's for posture and FWW use. Ambulated with FWW SBA x 200' Assessment/Needs 64 y.o. female, will benefit from skilled PT to address functional strength and mobility to improve current LOF to safely return to home with spouse at maximum LOF. Rehab Potential: Fair PT Sales Assistant Displays Goals Custodial Goals PT Sales Assistant Displays Goals Time Frame: Dec 30, 2019 Roll Left & Right (QC): 6 Sit to Lying (QC): 6 Lying-Sitting on Side/Bed(QC): 6 Sit to Stand (QC): 6 Chair/Fnz-jq-Ihepu Xfer(QC): 6 Toilet Transfer (QC): 6 Car Transfer (QC): 6 Does the Patient Walk: Yes Walk 10 feet (QC): 6 Walk 50ft with 2 Turns (QC): 6 Walk 150 ft (QC): 6 Walking 10ft on Uneven Surface: 6 1 Step (curb) (QC): 6 4 Steps (QC): 6 12 Steps (QC): 9 Picking up an Object (QC): 6 Does the Pt use WC or Scooter?: No Wheel 50 feet with 2 turns (QC: 9 Wheel 150 feet: 9 PT Plan Problem List Problem List: Activity Tolerance, Functional Strength, Bed Mobility Treatment/Plan Treatment Plan: Continue Plan of Care Treatment Plan: Bed Mobility, Education, Functional Activity Radha, Functional Strength, Gait, Safety, Therapeutic Exercise, Transfers Treatment Duration: Dec 30, 2019 Frequency: 6 times per week Estimated Hrs Per Day: .25 hour per day (to .5) Patient and/or Family Agrees t: Yes Discharge Recommendations Therapy Discharge Recommendati: Home & Family Time/GCodes Time In: 930 Time Out: 954 Total Billed Treatment Time: 24 Total Billed Treatment 1 visit EVModC 9 min FA 15 min JAISON QUINN PT Dec 23, 2019 10:24
--- NOTE | 2019-12-23 10:30 | NUR ---
Swing Bed Note: Qualifies for swing bed for continued need of multiple IV medications, ostomy teaching, Physical therapy (S/P colon resection due to perforation diverting ostomy).
--- OUTSIDE RECORDS SUMMARY | 2019-12-23 10:37 | XMS REPORT ---
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 [facility] Doorbot Address [address] [address] Care Team Providers Care Fire Hose Curer Name Role Phone GLADIS GRIGGS Unavailable RHONA AGRAWAL Unavailable ALEJANDRO CERON Unavailable Unavailable Unavailable Unavailable STEPHANY TELLEZ DO Unavailable Unavailable GLADIS GRIGGS MD Unavailable Unavailable GLADIS GRIGGS MD Unavailable Unavailable SANDY DO ETELVINA F Unavailable Unavailable FENECH DO, RHONA S Unavailable Unavailable FENECH DO, RHONA S Unavailable Unavailable STEPHANY TELLEZ DO Unavailable Unavailable Unavailable Unavailable Unavailable Unavailable Unavailable Unavailable Allergies The data below is from unstructured sourcesNo known allergies.No known allergies.No known allergies.No known allergies.No known allergies. No Known Allergies No Known Allergies Encounters Encounter Date Encounter Type Encounter Diagnosis Care Provider Facility Start: Evaluation and STEPHANY TELLEZ DO [facility] Via Chr isti 12-17-2019 management of [facility] inpatient Start: Evaluation and RHONA DELACRUZECH DO [facility] Via C hristi 12-15-2019 management of [facility] inpatient Start: Patient encounter RHONA DELACRUZECH DO [facility] Vi a [place] 12-15-2019 procedure [facility] Start: Patient encounter RHONA S FENECH DO [facility] [place] 11-28-2019 procedure [facility] End: 11-28-2019 Start: Patient encounter RHONA S FENECH DO [facility] [place] 11-22-2019 procedure [facility] Start: Patient encounter ALEJANDRO CERON [facility] access hospital 10-19-2019 procedure [facility] Start: Patient encounter SOUMYA DOOLEY [facility] 08-31-2019 procedure [facility] Start: Patient encounter ALEJANDRO CERON Critical access hospital 08-30-2019 procedure [facility] Start: Patient encounter NA NA [facility] 04-21-2019 procedure [facility] ([id number]) Start: Patient encounter NA NA [facility]-06-2019 procedure [facility] ([id number]) Start: [facility] DONNA Essential (primary) [facility] MAIN hypertension MAIN Start: Patient encounter NONE PCP [facility] 08-10-2018 procedure [facility] ([id number]) Start: Telephone encounter RHONA GONSALES [facility] 08-04-2018 Start: [facility] 07-06-2018 Start: Patient encounter NA NA [facility] 06-29-2018 procedure [facility] ([id number]) Start: [facility] Pain in right hip RHONA SALAS [facility] 06-29-2018 Start: Patient encounter GLADIS GRIGGS MD Not Availa ble ([id number]) 09-08-2017 procedure Start: Patient encounter GLADIS GRIGGS MD [facility] 09-08-2017 procedure [facility] Start: Patient encounter NA NA [facility] 06-09-2017 procedure [facility] ([id number]) End: 06-09-2017 Start: Patient encounter STEPHANY TELLEZ DO [facility] 06-09-2017 procedure [facility] End: 06-09-2017 Start: Patient encounter STEPHANY TELLEZ DO [facility] 06-02-2017 procedure [facility] End: 06-02-2017 Start: Patient encounter NA NA Not Availab le ([id number]) 04-28-2017 procedure End: 04-30-2017 Start: Emergency department DUDLEY SCHUMACHER Not Avai lable ([id number]) 04-28-2017 patient visit Start: Evaluation and GLADIS GRIGGS MD [facility] 04-28-2017 management of [facility] inpatient End: 04-30-2017 Start: Patient encounter GLADIS GRIGGS MD Not Availa ble ([id number]) 12-19-2015 procedure Start: Patient encounter GLADIS GRIGGS MD [facility] 12-19-2015 procedure [facility] Start: Patient encounter 07-27-2015 procedure Start: Patient encounter ETELVINA DELGADO DO [facility] V ia [place] 07-27-2015 [facility] Start: Patient encounter HERRERA STERLING DC Not Availa ble ([id number]) 03-30-2014 procedure Start: Emergency department 08-18-2012 patient visit End: 08-19-2012 ENCOUNTER FOR OTHER Encounter for other STEPHANYYAIR TELLEZ DO [facility] ([id number]) Medical Equipment No Information Goals No Information [...] Disposition 01 HOME, SELF-CARE Instructions/Education Provided DEANNA [id number] Forms Provided PDI Medical Prescriptions See Medication Section Referrals (Unspecified) Entered Date: 04/30/2017 10:59am Note: CALL DR. SAAVEDRA OFFICE FOR AN APPOINTMENT TOMORROW GLADIS GRIGGS MD (Unspecified) Order Date: 4 Days Entered Date: 04/30/2017 2:08pm Address: [address], [address] [place] [address] [phone] Note: MAY RETURN TO WORK Thursday05/04/17 WITH NO RESTRICTIONS Activity Details Follow Up 3 Months Reason: Activity Details Follow Up 3 Months Reason: Problems Active Problems Problem Problem Date Last Documented Episodic/Chr Provider Classificati Recorded Date onic on Abdominal Diaphragmatic hernia without 11-17-2019 Episodic STEPHANY TELLEZ hernia obstruction or gangrene DO (6 sources) Abdominal Unspecified abdominal pain 12-19-2019 Episodic RHONA pain FENECH DO (1 source) Anal and Rectal polyp 11-17-2019 Episodic TSEPHANY TELLEZ rectal DO conditions (6 sources) Conditions Dizziness and giddiness 12-19-2019 Episodic AL CHAEL associated FENECH DO with dizziness or vertigo (1 source) Contraceptiv Encounter for removal of 12-21-2019 Episodic RHONA e and intrauterine contraceptive device F ENECH DO procreative management (1 source) Disorders of Pure hypercholesterolemia, 12-22-2019 Chronic STEPHANY TELLEZ lipid unspecified DO metabolism (3 sources) Diverticulos Diverticulitis of large intestine 12-22-2019 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 TELLEZ is and with perforation and abscess DO diverticulit without bleeding is (3 sources) E Codes: Fall from roller skates Episodic Fall (2 sources) E Codes: Accidents occurring in place for Epi sodic Place of recreation and sport occurrence (2 sources) E Codes: Other external cause status ; Episod ic Unspecified Translations: [ACTIVITIES I NVOLVING (2 sources) ROLLER SKATING (INL] Esophageal Gastro-esophageal reflux disease 11-17-2019 Chroni c STEPHANY TELLEZ disorders with esophagitis ; Translations: DO (14 sources) [Gastro-esophageal reflux d isease without esophagitis] Essential Essential (primary) hypertension ; 11-17-2019 [employer]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 GLADIS GRIGGS hypertension Translations: [Essential MD (21 sources) hypertension] Fluid and Dehydration ; Translations: 11-17-2019 Episodic GLADIS GRIGGS electrolyte [Hypokalemia] MD disorders (12 sources) Fracture of Closed fracture of lower end of Epis odic upper limb radius with ulna (2 sources) Gastritis Gastritis, unspecified, without 11-17-2019 Episodi c STEPHANY TELLEZ and bleeding DO duodenitis (6 sources) Inflammatory Salpingitis and oophoritis, 12-22-2019 Episodic STEPHANY TELLEZ diseases of unspecified ; Translations: [Female DO female pelvic peritoneal adhesions pelvic (postinfective)] organs (6 sources) Menopausal Postmenopausal bleeding 12-21-2019 Chronic AL CHAEL disorders FENECH DO (1 source) Osteoarthrit Unilateral primary osteoarthritis, 11-17-2019 Chr onpatience MAIN is right knee ; Translations: [Primary SANDY DO (9 sources) osteoarthritis, unspecified site] Other Other long term care administrator (current) drug 11-17-2019 Episodic STEPHANY TELLEZ aftercare therapy DO (7 sources) Other detention (current) use of opiate 12-21-2019 Episo dic RHONA aftercare analgesic FENECH DO (1 source) Other and Polyp of colon 11-17-2019 Episodic STEPHANY DUNBA R unspecified DO benign neoplasm (6 sources) Other Achilles tendinitis, right leg 11-17-2019 Episodic GLADIS GRIGGS connective MD tissue disease (5 sources) Other eye Dry eye syndrome of unspecified 12-22-2019 Episodi c STEPHANY TELLEZ disorders lacrimal gland DO (3 sources) Other Elbow, forearm, and wrist injury Epi sodic injuries and conditions due to external causes (2 sources) Other lower Shortness of breath 11-17-2019 Episodic GLADIS GRIGGS respiratory MD disease (6 sources) Other Other chronic pain 12-21-2019 Chronic RHONA nervous FENECH DO system disorders (1 source) Other Effusion, right knee 11-17-2019 Episodic FINA T non-traumati SANDY DO c joint disorders (6 sources) Other Pain in right knee 11-17-2019 Episodic ETELVINA non-traumati SANDY DO c joint disorders (6 sources) Other Encounter for screening mammogram 11-17-2019 Episo amna GRIGGS screening for malignant neoplasm of breast MD for suspected conditions (not mental disorders or infectious disease) (6 sources) Residual Family history of stroke 12-21-2019 Episodic M ICHAEL codes; FENECH DO unclassified (1 source) Residual Family history of asthma and other 12-21-2019 Epis odic RHONA codes; chronic lower respiratory diseases FENECH DO unclassified (1 source) Residual Laparoscopic surgical procedure 12-22-2019 Episodi c STEPHANY TELLEZ codes; converted to open procedure DO unclassified (3 sources) Rheumatoid Rheumatoid arthritis, unspecified 12-21-2019 Chron ic RHONA arthritis FENECH DO and related disease (1 source) Spondylosis; Degeneration of cervical Chronic MARKIE WIN LONG intervertebr intervertebral disc ; Translations: DC al disc [CERVICAL DISC DEGEN] disorders; other back problems (3 sources) Spondylosis; Dorsalgia, unspecified 12-21-2019 Episodic AL CHAEL intervertebr FENECH DO al disc disorders; other back problems (4 sources) Substance-re Nicotine dependence, cigarettes, 11-17-2019 Chron ic GLADIS GRIGGS lated uncomplicated ; Translations: disorders [Cigarette smoker ] (22 sources) Past or Other Problems Problem Problem Date Last Documented Episodic/Chr Provider Classificati Recorded Date onic on Other Pain in right hip ; Translations: [ Episodic RHONA non-traumati - Right hip pain M25.551] NGHIA mckeon joint disorders Other (1 source) Phone: Procedures Date Procedure Procedure Detail Performing Cl inician Start: BYPASS LARGE STEPHANY TELLEZ DO 12-21-2019 INTESTINE TO CUTANEOUS, OPE Start: EXCISION OF STEPHANY TELLEZ DO 12-21-2019 SIGMOID COLON, OPEN APPROACH Start: RELEASE LEFT STEPHANY TELLEZ DO 12-21-2019 OVARY, PERCUTANEOUS ENDOSCO Start: RELEASE STEPHANY TELLEZ DO 12-21-2019 PERITONEUM, PERCUTANEOUS ENDOSCO Results Test Name Value Interpreta Reference Facilit Date tion Range y Time laboratory on 2019-12-23 Anion gap 10 mmol/L Negative 5-14 PENDING 12-22-2 [Moles/Vol] mmol/L [facility] 00:55-0 ([id number]) 400 Calcium [Mass/Vol] 7.7 mg/dL Low 8.5-10.1 PENDING 07-1 7-2 mg/dL [facility] 00:55-0 ([id number]) 400 Chloride [Moles/Vol] 104 mmol/L Negative 98-107 PENDING 0 7-17-2 mmol/L [facility] 0[facility] 00:55-0 ([id number]) 400 CO2 [Moles/Vol] 26 mmol/L Negative 21-32 PENDING 07-17-2 mmol/L [facility] 0[facility] 00:55-0 ([id number]) 400 Creatinine 0.63 mg/dL Negative 0.60-1.30 PENDING [Mass/Vol] mg/dL [facility] 020 [facility] 00:55-0 ([id number]) 400 Creatinine and > Invalid PENDING Glomerular Interpreta LOCATIO 020 filtration tion Code N [facility] 00:55-0 rate.predicted panel ([id number]) 400 - Serum, Plasma or Blood Erythrocyte 14.1 % Negative 10.0-14.5 PENDING distribution width % LOCATIO 020 (RBC) [Ratio] N [facility] 00:55-0 ([id number]) 400 Glucose [Mass/Vol] 114 mg/dL High 70-105 PENDING 12-06 mg/dL LOCATIO 020 [facility] 00:55-0 ([id number]) 400 Hematocrit (Bld) 31 % Low 35-52 % PENDING [Volume fraction] [facility] 00:55-0 ([id number]) 400 Hemoglobin (Bld) 10.0 g/dL Low 11.5-16.0 PENDING [Mass/Vol] g/dL LOCATIO 020 [facility] 00:55-0 ([id number]) 400 Magnesium [Mass/Vol] 1.5 mg/dL Low 1.6-2.4 PENDING mg/dL LOCATIO 020 [facility] 00:55-0 ([id number]) 400 MCH (RBC) [Entitic 32 pg Negative 25-34 pg PENDING 12-06 mass] LOCATIO 020 [facility] 00:55-0 ([id number]) 400 MCHC (RBC) 33 g/dL Negative 32-36 g/dL PENDING [Mass/Vol] LOCATIO 020 [facility] 00:55-0 ([id number]) 400 MCV (RBC) [Entitic 99 Negative 80-99 PENDING 12-06 vol] [foz_us] LOCATIO 020 [facility] 00:55-0 ([id number]) 400 Platelet mean volume 9.3 Negative 7.4-10.4 PENDING (Bld) [Entitic vol] [foz_us] LOC[facility]IO 020 N [facility] 00:55-0 ([id number]) 400 Platelets (Bld) 486 10*3/uL High 130-400 PENDING 12-22 [#/Vol] 10*3/uL [facility] 020 [facility] 00:55-0 ([id number]) 400 Potassium 3.4 mmol/L Low 3.6-5.0 PENDING [Moles/Vol] mmol/L [facility] 020 [facility] 00:55-0 ([id number]) 400 RBC (Bld) [#/Vol] 3.08 10*6/uL Low 4.35-5.85 PENDING 10*6/uL [facility]IO 020 [facility] 00:55-0 ([id number]) 400 Sodium [Moles/Vol] 140 mmol/L Negative 135-145 PENDING mmol/L [facility]IO 020 [facility] 00:55-0 ([id number]) 400 Urea nitrogen 5 mg/dL Low 7-18 mg/dL PENDING [Mass/Vol] [facility] 020 [facility] 00:55-0 ([id number]) 400 Urea 8 mg/mg Invalid PENDING nitrogen/Creatinine Interpreta LOCATIO 020 [Mass ratio] tion Code N [facility] 00:55-0 ([id number]) 400 WBC (Bld) [#/Vol] 16.8 10*3/uL High 4.3-11.0 PENDING 10*3/uL LOC[facility]IO 020 N [facility] 00:55-0 ([id number]) 400 not yet categorized on 2019-12-22 NAME: RICKY SIEGEL ~MED REC#: [id number] Invalid PENDING ~ ~CARE PROVIDER: MEREDITH Butler CRNA ~General ~Patient tion Code N [facility] Condition ~Mental Status/LOC: Same as Preop ( ) ~Cardiovascular: Satisfactory ~Nausea/Vomiting: Absent ~Respiratory: Satisfactory ~Pain: Controlled ~Complications: Absent ~ ~Post Op Complications ~Complications ~None ~ ~F ollow Up Care/Instructions ~Patient Instructi ons ~None needed. ~ ~Anesthesia/Patient Con dition ~Patient Condition ~Patient is doing we ll, no complaints, stable vital signs, no appa rent adverse anesthesia problems. ~ ~No complications reported per nursing. ~ ~ ~ ~MEREDITH BRIDGES CRNA Dec 22, 2019 07: 00 ~ ~ ~<Created by MEREDITH BRIDGES PORTABLE MACHINE CUTTER> ~<Electronically signed by MEREDITH GARCIA PORTABLE MACHINE CUTTER> 12/22/19 0700 ~ ~ NAME: RICKY SIEGEL ~MED REC#: [id number] Invalid PENDING ~ ~CARE PROVIDER: STEPHANY Gomez DO ~Subjective ~Date Seen by a kamryn MAYNARD Provider: Dec 22, 2019 ~Time Seen by a ([id number]) Provider: 09:00 ~Subjective/Events-last exam ~Patient sore. Up in chair. Pain contro lled. No nausea or emesis. ~Using IS. WBC 24 No new complaints, denies fever sweats chills shortness of breaht or chest pain. ~ ~Objective ~Exam ~ ~Vital Signs ~ ~ ~ D ate Time Temp Pulse Resp B/P (MAP) Pulse Ox O2 Delivery O2 Flow Rate FiO2 ~ ~12/22/19 1 1:44 37.2 80 20 109/67 (81) 98 Nasal Cannula 1.00 ~ ~12/22/19 09:05 93 Nasal Cannula 1.00 ~ ~12/22/19 09:05 37.2 104 93 24 ~ ~ 0 09:00 Nasal Cannula 2.00 ~ ~12/22/19 08: 32 37.2 92 20 103/53 (70) 94 Room Air ~ ~ 04:32 36.6 101 15 112/72 (85) 93 Nasal Cannula 2.00 ~ ~12/22/19 03:08 37.4 76 9 9 28 ~ ~12/22/19 00:01 36.8 89 16 120/75 (90) 9 4 Nasal Cannula 2.00 ~ ~12/21/19 21:00 Marin al Cannula 2.00 ~ ~12/21/19 20:06 36.2 76 1 5 129/80 (96) 99 Nasal Cannula 2.00 ~ ~ 19:30 16 115/78 (90) 93 Room Air ~ ~710/25 19:20 Room Air ~ ~12/21/19 19:20 16 129/ 83 (98) 93 Room Air ~ ~12/21/19 19:10 OxyMa sk 4 ~ ~12/21/19 19:10 17 127/83 (98) 98 OxyMas k 4 ~ ~12/21/19 19:01 14 124/72 (89) 98 OxyMas k 8 ~ ~12/21/19 18:58 OxyMask 6 ~ ~12/21/19 18: 50 14 136/82 (100) 96 OxyMask 8 ~ ~12/21/19 18 :48 OxyMask 8 ~ ~12/21/19 18:40 14 125/88 (1 00) 95 OxyMask 10 ~ ~12/21/19 18:38 36.1 16 141 /80 (100) 95 OxyMask 10 ~ ~12/21/19 18:38 Ox yMask 10 ~ ~ ~ ~ ~I O ~ ~ 12/22/19 ~ ~ 07:00 ~ ~Intake Total 690 ml ~ ~Output Total 25 95 ml ~ ~Balance -1905 ml ~ ~Capillary Refill : Less Than 3 SecondsLess Than 3 Seconds ~General Appearance: No Apparent Distre ss (fatigued) ~HEENT: PERRL/EOMI ~Neck: Fu ll Range of Motion, Normal Inspection, Non Tender ~Respiratory: Chest Non Tender, Lungs Clear ~Cardiovascular: Regular Rate, Rh ythm, No Edema ~Gastrointestinal: soft; No guarding, No rebound; tenderness (incis ional, ostomy light serosang ~output, midline bandage with slight blood shadowing), o ther (drain serosang) ~Extremity: Non Tender , No Calf Tenderness, Pedal Edema ~Neurologic/Psychiatric: Alert, Oriente d x3, No Motor/Sensory Deficits, Normal Mood/Affect, fire hose curer II-~XII Norm as Tested ~Skin: Normal Color, Warm/Dry ~Lymphati c: No Adenopathy ~ ~Results ~Lab ~Laboratory Tests ~12/22/19 06:08: ~White Blood Count 24.5 H, Red Blood Count 3.58L, Hemoglobin 11.8, Hematocrit 35, Mean Corpuscular ~Volume 98, Mean Corpuscular Hemoglobin 33, Mean Corpuscular Hemoglobin Concent 34, Red Cell ~Distribution Width 13.5, Platelet Coun t 551H, Mean Platelet Volume 9.2, Neutrop hils (%) (Auto) 92H, ~Lymphocytes (%) (Auto) 3L, Monocytes (%) (Auto) 4, Eosinophils (%) (Auto) 0, Basophils (%) (Auto) 0,~Neutr ophils # (Auto) 22.6H, Lymphocytes # (Auto) 0. 8L, Monocytes # (Auto) 1.0, Eosinophils # ( Auto) ~0.0, Basophils # (Auto) 0.0, Neutrophi ls % (Manual) 90, Lymphocytes % (Manual) 4, Monocytes % ~(Manual) 4, Band Neutrophi ls 2, Sodium Level 140, Potassium Level 3.4L, Chloride Level 103, Carbon ~Dioxide Lev el 26, Anion Gap 11, Blood Urea Nitrogen 4L, Creatinine 0.60, Estimat Glomerular ~Filtration Rate > 60, BUN/Creatinine R atio 7, Glucose Level 143H, Calcium Level 7. 9L ~ ~Assessment/Plan ~Assessment/Plan ~Assessment/Plan ~LLQ ABDOMINAL PAIN ~A CUTE DIVERTICULITIS ~LEUKOCYTOSIS ~HYPOKALEM IA ~S/P laparoscopy with lysis of adhesion s to exploration and liperation of left pelv ic abscess with ~sigmoid resection end col ostomy ~ ~ ~Continue antibiotics ~Pain control ~Lovenox scd's for dvt prophylaxis ~amb ulate ~Incentive spirometer ~Consult medicine ~await bowel function and advance diet ~PT ~replace K ~Mat protocol ~ ~Clinical Qu ality Measures ~DVT/VTE Risk/Contraindication : ~Risk Factor Score Per Nursin ~RFS Level Per Nursing on Admit: 4+=Very High ~ ~ ~ ~TSEPHANY TELLEZ DO Dec 22, 2019 14:29 ~ ~ ~<Created by STEPHANY TELLEZ DO> ~<Electronically signed by STEPHANY HILL DO> 12/22/19 1444 ~ ~ laboratory on 2019-12-22 Anion gap 11 mmol/L Negative 5-14 PENDING [Moles/Vol] mmol/L [facility] 020 N [facility] 02:08-0 ([id number]) 400 Band form 2 % Invalid % PENDING neutrophils/100 WBC Interpreta LOCATIO 020 (Bld) tion Code N [facility] 02:08-0 ([id number]) 400 Basophils (Bld) 0.0 10*3/uL Negative 0.0-0.1 PENDING 12-21 [#/Vol] 10*3/uL LOC[facility]IO 020 N [facility] 02:08-0 ([id number]) 400 Basophils/100 WBC 0 % Negative 0-10 % PENDING 12-21 (Bld) LOC[facility]IO 020 N [facility] 02:08-0 ([id number]) 400 Calcium [Mass/Vol] 7.9 mg/dL Low 8.5-10.1 PENDING - 6-2 mg/dL LOCATIO 020 N [facility] 02:08-0 ([id number]) 400 Chloride [Moles/Vol] 103 mmol/L Negative 98-107 PENDING 0 7-16-2 mmol/L LOCATIO 020 [facility] 02:08-0 ([id number]) 400 CO2 [Moles/Vol] 26 mmol/L Negative 21-32 PENDING 12-21- mmol/L LOCATIO 020 [facility] 02:08-0 ([id number]) 400 Creatinine 0.60 mg/dL Negative 0.60-1.30 PENDING [Mass/Vol] mg/dL LOCATIO 020 N [facility] 02:08-0 ([id number]) 400 Creatinine and > Invalid PENDING Glomerular Interpreta LOCATIO 020 filtration tion Code N [facility] 02:08-0 rate.predicted panel ([id number]) 400 - Serum, Plasma or Blood Eosinophils (Bld) 0.0 10*3/uL Negative 0.0-0.3 PENDING [#/Vol] 10*3/uL LOCATIO 020 N [facility] 02:08-0 ([id number]) 400 Eosinophils/100 WBC 0 % Negative 0-10 % PENDING (Bld) LOCATIO 020 [facility] 02:08-0 ([id number]) 400 Erythrocyte 13.5 % Negative 10.0-14.5 PENDING distribution width % LOCATIO 020 (RBC) [Ratio] N [facility] 02:08-0 ([id number]) 400 Glucose [Mass/Vol] 143 mg/dL High 70-105 PENDING 07- 6-2 mg/dL LOCATIO 020 N [facility] 02:08-0 ([id number]) 400 Hematocrit (Bld) 35 % Negative 35-52 % PENDING [Volume fraction] LOCATIO 020 [facility] 02:08-0 ([id number]) 400 Hemoglobin (Bld) 11.8 g/dL Negative 11.5-16.0 PENDING [Mass/Vol] g/dL LOCATIO 020 N [facility] 02:08-0 ([id number]) 400 Lymphocytes (Bld) 0.8 10*3/uL Low 1.0-4.0 PENDING [#/Vol] 10*3 LOCATIO 020 [facility] 02:08-0 ([id number]) 400 Lymphocytes/100 WBC 3 % Low 12-44 % PENDING (Bld) LOC[facility]IO 020 [facility] 02:08-0 ([id number]) 400 Lymphocytes/100 WBC 4 % Invalid % PENDING (Bld) Interpreta LOCATIO 020 tion Code [facility] 02:08-0 ([id number]) 400 MCH (RBC) [Entitic 33 pg Negative 25-34 pg PENDING 12-06-2 mass] LOCATIO 020 [facility] 02:08-0 ([id number]) 400 MCHC (RBC) 34 g/dL Negative 32-36 g/dL PENDING [Mass/Vol] LOCATIO 020 [facility] 02:08-0 ([id number]) 400 MCV (RBC) [Entitic 98 Negative 80-99 PENDING 12-06 6-2 vol] [foz_us] LOCATIO 020 [facility] 02:08-0 ([id number]) 400 Monocytes (Bld) 1.0 10*3/uL Negative 0.0-1.0 PENDING 12-21 [#/Vol] 10*3 LOCATIO 020 [facility] 02:08-0 ([id number]) 400 Monocytes/100 WBC 4 % Negative PENDING (Bld) LOCATIO 020 [facility] 02:08-0 ([id number]) 400 Neutrophils (Bld) 22.6 10*3/uL High 1.8-7.8 PENDING [#/Vol] 10*3 LOC[facility]IO 020 [facility] 02:08-0 ([id number]) 400 Neutrophils/100 WBC 92 % High 42-75 % PENDING (Bld) [facility]IO 020 N [facility] 02:08-0 ([id number]) 400 Platelet mean volume 9.2 Negative 7.4-10.4 PENDING (Bld) [Entitic vol] [foz_us] LOC[facility]IO 020 N [facility] 02:08-0 ([id number]) 400 Platelets (Bld) 551 10*3/uL High 130-400 PENDING 12-21 [#/Vol] 10*3/uL [facility] 020 N [facility] 02:080 ([id number]) 400 Potassium 3.4 mmol/L Low 3.6-5.0 PENDING [Moles/Vol] mmol/L [facility] 020 [facility] 02:08-0 ([id number]) 400 RBC (Bld) [#/Vol] 3.58 10*6/uL Low 4.35-5.85 PENDING 10*6/uL [facility] 020 [facility] 02:080 ([id number]) 400 Segmented 90 % Invalid % PENDING neutrophils/100 WBC Interpreta LOCATIO 020 (Bld) tion Code N S 02:080 ([id number]) 400 Sodium [Moles/Vol] 140 mmol/L Negative 135-145 PENDING mmol/L [facility] 020 [facility] 02:08-0 ([id number]) 400 Urea nitrogen 4 mg/dL Low 7-18 mg/dL PENDING [Mass/Vol] [facility]IO 020 [facility] 02:08-0 ([id number]) 400 Urea 7 mg/mg Invalid PENDING nitrogen/Creatinine Interpreta LOCATIO 020 [Mass ratio] tion Code N S 02:080 ([id number]) 400 WBC (Bld) [#/Vol] 24.5 10*3/uL High 4.3-11.0 PENDING 10*3/uL [facility] 020 [facility] 02:08-0 ([id number]) 400 not yet categorized on 2019-12-21 NAME: TONI SIEGELJean-Pierre Franks ~MED REC#: [id number] Invalid PENDING ~ ~CARE PROVIDER: STEPHANY Gomez DO ~Subjective ~Date Seen by a kamryn STOYRS Provider: Dec 21, 2019 ~Time Seen by a ([id number]) Provider: 08:11 ~Subjective/Events-last exam ~Patient having bm and passing flatus. Feels bloated. Having nausea, but tolerating liquids. ~WBC down, Platelet increasing . Denies fever sweats chills shortness of breath or chest pain at this~time. ~ ~Objective ~Exam ~ ~Vital Signs ~ ~ ~ D ate Time Temp Pulse Resp B/P (MAP) Pulse Ox O2 Delivery O2 Flow Rate FiO2 ~ ~12/21/19 1 9:10 17 127/83 (98) 98 OxyMask 4 ~ ~12/21/19 19:01 14 124/72 (89) 98 OxyMask 8 ~ ~12/21/19 18:50 14 136/82 (100) 96 OxyMask 8 ~ ~12/21/19 18:40 14 125/88 (100) 95 OxyMask 10 ~ ~ 0 18:38 36.1 16 141/80 (100) 95 OxyMask 1 0 ~ ~12/21/19 18:38 OxyMask 10 ~ ~12/21/19 13 :30 36.6 83 18 166/80 (108) 94 Room Air ~ ~12/21/19 08:00 36.6 79 18 172/85 (114) 95 Room Air ~ ~12/21/19 08:00 95 Room Air ~ ~12/21/19 02:24 37.1 86 18 134/80 (98) 9 5 Room Air ~ ~12/20/19 20:58 37.0 68 18 153/79 (103) 98 Room Air ~ ~12/20/19 20:58 98 Room r ~ ~ ~ ~ ~I O ~ ~ 12/21/19 ~ ~ 07:00 ~ ~Intak e Total 5740 ml ~ ~Output Total 3250 ml ~ ~Balance 2490 ml ~ ~Capillary Refill : Less Than 3 SecondsLess Than 3 Seconds ~Gene ral Appearance: No Apparent Distress ~HEENT : PERRL/EOMI ~Neck: Full Range of Motion, Normal Inspection, Non Tender ~Respirat ory: Chest Non Tender, Lungs Clear ~Cardiovascular: Regular Rate, Rhythm, No Edema ~Gastrointestinal: soft, distende d (slight bloating); No guarding, No rebo und; tenderness (llq ~minimal) ~Extremity: N on Tender, No Calf Tenderness, Pedal Edema ~Neurologic/Psychiatric: Alert, Oriente d x3, No Motor/Sensory Deficits, Normal Mood/Affect, fire hose curer II-~XII Norm as Tested ~Skin: Normal Color, Warm/Dry ~Lymphati c: No Adenopathy ~ ~Results ~Lab ~Laboratory Tests ~12/21/19 05:05: ~White Blood Count 10.6 , Red Blood Count 3.35L, Hemoglobin 10.9L, Hematocrit 33L, Mean Corpuscular ~Volum e 99, Mean Corpuscular Hemoglobin 33, Mean Corpuscular Hemoglobin Concent 33, Red Cell ~Distribution Width 13.5, Platelet Coun t 505H, Mean Platelet Volume 9.1, Sodium Level 140, Potassium ~Level 3.5L, Chloride Le ioana 105, Carbon Dioxide Level 24, Anion Gap 11, Blood Urea Nitrogen 3L, ~Creatinine 0.6 0, Estimat Glomerular Filtration Rate > 60 , BUN/Creatinine Ratio 5, Glucose Level 9 6, ~Calcium Level 8.1L ~ ~Assessment/Plan ~Assessment/Plan ~Assessment/Plan ~LLQ ABDOMINAL PAIN ~ACUTE DIVERTICULITIS ~LEUKOCYTOSIS ~HYPOKALEMIA ~ ~ ~Patient slowly improving, but still not feeling as I would expect. ~Her wbc trending down an d platelet gradually increasing. ~Suspect may have abscess. ~Will or ct scan abd/pelv is to further evaluate. ~ ~ ~ ~Follow up on c t scan appears to have abscess in left lower quadrant, either TOA or diverticular, ~discussed with Dr. Brooke and wanted o rdered transvaginal u/s to further evaluate wh ich did not give~any clearer picture of pathology. ~He will plan on taking to [facility] for diagnostic laparoscopy. ~ ~Clinical Carlos lity Measures ~DVT/VTE Risk/Contraindication : ~Risk Factor Score Per Nursin ~RFS Level Per Nursing on Admit: 4+=Very High ~ ~ ~ ~STEPHANY TELLEZ DO Dec 21, 2019 19:24 ~ ~ ~<Created by STEPHANY TELLEZ DO> ~<Electronically signed by STEPHANY HILL DO> 12/21/191923 ~ ~ NAME: ENIO SIEGELCIRA Franks ~MED REC#: [id number] Invalid PENDING ~ ~CARE PROVIDER: Interpreta STEPHANY PEIRRE DO ~Post-Operative Progess tion Code N S Note ~Surgeon (s)/Supervisor Remelt (s) ~Surgeon ([id number]) ~STEPHANY TELLEZ DO ~Supervisor Remelt: Dr. Acevedo ~ ~Pre-Operative Diagnosis ~Perforated si gmoid colon ~ ~Post-Operative Diagnosis ~ ~sa me ~ ~Procedure Operative Findings ~Date of Procedure ~12/21/19 ~Procedure Performed/Findings ~Exploratory laparot karuna with sigmoid resection and end colostom y (Naya) ~Anesthesia Type ~general ~ ~Estimated Blood Loss ~Estimated blood loss (mL): see anesthesia record for total ~ ~Specimens/Packing ~Specimens Removed ~sigmoid colon ~Packing: ~Surgicel ~ ~ ~ ~STEPHANY TELLEZ DO Dec 21, 2019 19:27 ~ ~ ~<Created by STEPHANY TELLEZ DO> ~<Electronically signed by STEPHANY HILL DO> 12/21/191926 ~ ~ laboratory on 2019-12-21 Anion gap 11 mmol/L Negative 5-14 PENDING 12-20-2 [Moles/Vol] mmol/L [facility] 01:05-0 ([id number]) 400 Calcium [Mass/Vol] 8.1 mg/dL Low 8.5-10.1 PENDING 07-1 5-2 mg/dL [facility] 01:05-0 ([id number]) 400 Chloride [Moles/Vol] 105 mmol/L Negative 98-107 PENDING 0 7-15-2 mmol/L [facility] 01:05-0 ([id number]) 400 CO2 [Moles/Vol] 24 mmol/L Negative 21-32 PENDING 07-15-2 mmol/L [facility] 01:05-0 ([id number]) 400 Creatinine 0.60 mg/dL Negative 0.60-1.30 PENDING -15-2 [Mass/Vol] mg/dL [facility] 01:05-0 ([id number]) 400 Creatinine and > Invalid PENDING 12-20-2 Glomerular Interpreta LOC[facility] 020 filtration tion Code N [facility] 01:05-0 rate.predicted panel ([id number]) 400 - Serum, Plasma or Blood Erythrocyte 13.5 % Negative 10.0-14.5 PENDING distribution width % [facility] 020 (RBC) [Ratio] [facility] 01:05-0 ([id number]) 400 Glucose [Mass/Vol] 96 mg/dL Negative 70-105 PENDING 12-06 5-2 [facility] 01:05-0 ([id number]) 400 Hematocrit (Bld) 33 % Low 35-52 % PENDING [Volume fraction] [facility] 020 [facility] 01:05-0 ([id number]) 400 Hemoglobin (Bld) 10.9 g/dL Low 11.5-16.0 PENDING [Mass/Vol] g/dL [address] 01:05-0 ([id number]) 400 MCH (RBC) [Entitic 33 pg Negative 25-34 pg PENDING 12-06 mass] [address] 01:05-0 ([id number]) 400 MCHC (RBC) 33 g/dL Negative 32-36 g/dL PENDING [Mass/Vol] [facility] 01:05-0 ([id number]) 400 MCV (RBC) [Entitic 99 Negative 80-99 PENDING 12-062 vol] [foz_us] [facility] 01:05-0 ([id number]) 400 Platelet mean volume 9.1 Negative 7.4-10.4 PENDING (Bld) [Entitic vol] [foz_us] [facility] [address] [place] [address] 01:05-0 ([id number]) 400 Platelets (Bld) 505 10*3/uL High 130-400 PENDING 12-20 [#/Vol] 10*3/uL [facility] [address] [place] [address] 01:05-0 ([id number]) 400 Potassium 3.5 mmol/L Low 3.6-5.0 PENDING [Moles/Vol] mmol/L [facility] 020 [facility] 01:05-0 ([id number]) 400 RBC (Bld) [#/Vol] 3.35 10*6/uL Low 4.35-5.85 PENDING 07 -15-2 10*6/uL [facility] 020 [facility] 01:05-0 ([id number]) 400 Sodium [Moles/Vol] 140 mmol/L Negative 135-145 PENDING mmol/L [facility] 020 [facility] 01:05-0 ([id number]) 400 Urea nitrogen 3 mg/dL Low 7-18 mg/dL PENDING [Mass/Vol] [facility] 020 [facility] 01:050 ([id number]) 400 Urea 5 mg/mg Invalid PENDING nitrogen/Creatinine Interpreta [facility] 020 [Mass ratio] tion Code N [facility] 01:05-0 ([id number]) 400 WBC (Bld) [#/Vol] 10.6 10*3/uL Negative 4.3-11.0 PENDING 10*3/uL [facility] 020 N [facility] 01:050 ([id number]) 400 not yet categorized on 2019-12-20 NAME: RICKY SIEGEL ~MED REC#: [id number] Invalid PENDING ~ ~PHYSICIAN: STEPHANY Goyal DO ~Subjective ~Date Seen by a tion Code N Mariah Provider: Dec 20, 2019 ~Time Seen by a () Provider: 15:24 ~Subjective/Events-last exam ~Feeling better. WBC down some more. Dr inking liquids but having nausea. +bm. ~Ambula ting. Feels bloated. Denies fever sweats chil ls shortness of breath or chest pain. ~ ~Objective ~Exam ~ ~Vital Signs ~ ~ ~ D ate Time Temp Pulse Resp B/P (MAP) Pulse Ox O2 Delivery O2 Flow Rate FiO2 ~ ~12/20/19 1 3:30 145/78 (100) ~ ~12/20/19 12:44 36.7 68 1 8 161/77 (105) 97 Room Air ~ ~12/20/19 08: 00 96 Room Air ~ ~12/20/19 08:00 36.7 83 18 15 2/78 (102) 96 Room Air ~ ~12/20/19 05:30 37.0 86 18 162/92 (115) 97 Room Air ~ ~12/20/19 00: 41 37.2 79 18 150/82 (104) 95 Room Air ~ ~7/13/20 20:16 36.5 64 18 143/72 (95) 9 8 Room Air ~ ~12/19/19 20:16 94 Room Air ~ ~ ~ ~ ~I O ~ ~ 12/20/19 ~ ~ 07:00 ~ ~Intake Total 3 200 ml ~ ~Output Total 2600 ml ~ ~Balance 600 ml ~ ~Capillary Refill : Less Than 3 Seconds Less Than 3 Seconds ~General Appearance: No Apparent Distress ~HEENT: PERRL/EOMI ~N claudine: Full Range of Motion, Normal Inspection , Non Tender ~Respiratory: Chest Non Tender, Lungs Clear ~Cardiovascular: Regular Rate, Rh ythm, No Edema ~Gastrointestinal: soft, diste nded (slight bloating); No guarding, No rebo und; tenderness (llq ~minimal) ~Extremity: N on Tender, No Calf Tenderness, Pedal Edema ~Neurologic/Psychiatric: Alert, Oriente d x3, No Motor/Sensory Deficits, Normal Mood/Affect, fire hose curer II-~XII Norm as Tested ~Skin: Normal Color, Warm/Dry ~Lymphati c: No Adenopathy ~ ~Results ~Lab ~Laboratory Tests ~12/20/19 05:21: ~White Blood Count 12.0 H, Red Blood Count 3.32L, Hemoglobin 10.9L, Hematocrit 33L, Mean Corpuscular ~Volum e 99, Mean Corpuscular Hemoglobin 33, Mean Corpuscular Hemoglobin Concent 33, Red Cell ~Distribution Width 13.4, Platelet Coun t 456H, Mean Platelet Volume 9.5, Sodium Level 140, Potassium ~Level 3.2L, Chloride Le ioana 107, Carbon Dioxide Level 21, Anion Gap 12, Blood Urea Nitrogen 7, ~Creatinine 0.58 L, Estimat Glomerular Filtration Rate > 60 , BUN/Creatinine Ratio 12, Glucose Level ~88, Calcium Level 8.1L ~ ~Assessment/Plan ~Assessment/Plan ~Assessment/Plan ~LLQ ABDOMINAL PAIN ~ACUTE DIVERTICULITIS ~LEUKOCYTOSIS ~HYPOKALEMIA ~ ~ ~wbc rachael nding down and feeling better. ~clears as hilaria erates ~IV HYDRATION decrease fluids to 100 mL /hr ~UNASYN/FLAGYL ~Replace K ~REPEAT LABS in am ~CONSERVATIVE MANAGEMENT ~PLAN COLONOSC OPY OUTPATIENT ABOUT 6-8 WEEKS ~ ~Clinical Quality Measures ~DVT/VTE Risk/Contraindication: ~Risk Factor Sco re Per Nursin ~RFS Level Per Nursing on Ad katia: 4+=Very High ~ ~ ~ ~STEPHANY TELLEZ DO J 2019 19:05 ~ ~ ~<Created by STEPHANY HERZOG DO> ~<Electronically signed by STEPHANY TELLEZ DO> 12/20/19 1905 ~ ~ laboratory on 2019-12-20 Anion gap 12 mmol/L Negative 5-14 PENDING 12-19-2 [Moles/Vol] mmol/L [facility] 020 N [facility] 01:21-0 ([id number]) 400 Calcium [Mass/Vol] 8.1 mg/dL Low 8.5-10.1 PENDING 07-1 4-2 mg/dL [facility] 020 N [facility] 01:21-0 ([id number]) 400 Chloride [Moles/Vol] 107 mmol/L Negative 98-107 PENDING 0 7-14-2 mmol/L [facility] 020 N [facility] 01:21-0 ([id number]) 400 CO2 [Moles/Vol] 21 mmol/L Negative 21-32 PENDING 07-14-2 mmol/L [facility] 020 N [facility] 01:21-0 ([id number]) 400 Creatinine 0.58 mg/dL Low 0.60-1.30 PENDING 12-19-2 [Mass/Vol] mg/dL [facility] 020 N [facility] 01:21-0 ([id number]) 400 Creatinine and > Invalid PENDING 12-19-2 Glomerular Interpreta [facility] 020 filtration tion Code N [facility] 01:21-0 rate.predicted panel ([id number]) 400 - Serum, Plasma or Blood Erythrocyte 13.4 % Negative 10.0-14.5 PENDING 12-19-2 distribution width % [facility] 020 (RBC) [Ratio] N S 01:21-0 ([id number]) 400 Glucose [Mass/Vol] 88 mg/dL Negative 70-105 PENDING 07-1 4-2 mg/dL [facility] 01:21-0 ([id number]) 400 Hematocrit (Bld) 33 % Low 35-52 % PENDING 12-19- 2 [Volume fraction] [facility] 01:21-0 ([id number]) 400 Hemoglobin (Bld) 10.9 g/dL Low 11.5-16.0 PENDING 07-14- 2 [Mass/Vol] g/dL [facility] 020 [facility] 01:21-0 ([id number]) 400 MCH (RBC) [Entitic 33 pg Negative 25-34 pg PENDING 12-06-2 mass] [facility] 020 [facility] 01:21-0 ([id number]) 400 MCHC (RBC) 33 g/dL Negative 32-36 g/dL PENDING [Mass/Vol] [facility] 020 [facility] 01:-0 ([id number]) 400 MCV (RBC) [Entitic 99 Negative 80-99 PENDING 12-06-2 vol] [foz_us] [facility] 020 [facility] :-0 ([id number]) 400 Platelet mean volume 9.5 Negative 7.4-10.4 PENDING (Bld) [Entitic vol] [foz_us] [facility] 020 [facility] : ([id number]) 400 Platelets (Bld) 456 10*3/uL High 130-400 PENDING 12-19 [#/Vol] 10*3/uL [facility] 020 [facility] 01:0 ([id number]) 400 Potassium 3.2 mmol/L Low 3.6-5.0 PENDING [Moles/Vol] mmol/L [facility] 020 [facility] 01:-0 ([id number]) 400 RBC (Bld) [#/Vol] 3.32 10*6/uL Low 4.35-5.85 PENDING 10*6/uL [facility] 020 [facility] 01:-0 ([id number]) 400 Sodium [Moles/Vol] 140 mmol/L Negative 135-145 PENDING mmol/L [facility] 020 [facility] 01:0 ([id number]) 400 Urea nitrogen 7 mg/dL Negative 7-18 mg/dL PENDING [Mass/Vol] [facility] 020 [facility] 01:-0 ([id number]) 400 Urea 12 mg/mg Invalid PENDING nitrogen/Creatinine Interpreta [facility] 020 [Mass ratio] tion Code [facility] 01: ([id number]) 400 WBC (Bld) [#/Vol] 12.0 10*3/uL High 4.3-11.0 PENDING 10*3/uL [facility] 020 Margarita [facility] 01:21-0 ([id number]) 400 not yet categorized on 2019-12-19 NAME: RICKY SIEGEL ~MED REC#: [id number] Invalid PENDING ~ ~PHYSICIAN: STEPHANY Goyal DO ~Subjective ~Date Seen by a tion Lilibeth MAYNARD Provider: Dec 19, 2019 ~Time Seen by a ([id number]) Provider: 08:19 ~Subjective/Events-last exam ~Had nausea last night. Did not sleep w ell. Abdominal pain about a 3/10. Had bm. Currently tired.~ Denies n/v fever swea ts chills shortness of breath or chest paige n. ~WBC down to 13.6 k, Potassium improved . ~ ~Objective ~Exam ~ ~Vital Signs ~ ~ ~ D ate Time Temp Pulse Resp B/P (MAP) Pulse Ox O2 Delivery O2 Flow Rate FiO2 ~ ~12/19/19 2 0:16 36.5 64 18 143/72 (95) 98 Room Air ~ ~ 16:00 36.6 62 18 137/65 (89) 95 Room r ~ ~12/19/19 12:00 36.6 63 18 139/66 (90) 9 6 Room Air ~ ~12/19/19 07:35 94 Room Air ~ ~708/25 07:35 36.6 64 18 104/52 (69) 94 Room r ~ ~12/19/19 06:41 36.5 62 18 137/67 (90) 9 6 Room Air ~ ~12/19/19 02:53 36.7 80 18 131/73 (92) 95 Room Air ~ ~12/18/19 23:30 36.6 86 18 160/77 (104) 96 Room Air ~ ~ ~ ~ ~I O ~ ~ 12/19/19 ~ ~ 07:00 ~ ~Intake Total 2250 ml ~ ~Output Total 2100 ml ~ ~Balance 150 ml ~ ~Capillary Refill : Less Than 3 Seconds Less Than 3 Seconds ~General Appearance: No Apparent Distress ~HEENT: PERRL/EOMI ~N claudine: Full Range of Motion, Normal Inspection , Non Tender ~Respiratory: Chest Non Tender, Lungs Clear ~Cardiovascular: Regular Rate, Rh ythm, No Edema ~Gastrointestinal: soft; No guarding, No rebound; tenderness (llq minimal) ~Extremity: Non Tender, No Brandon f Tenderness ~Neurologic/Psychiatric: Ellie rt, Oriented x3, No Motor/Sensory Deficits, Normal Mood/Affect, fire hose curer II-~XII Norm as Tested ~Skin: Normal Color, Warm/Dry ~Lymphatic: No Adenopathy ~ ~Results ~L ab ~Laboratory Tests ~12/19/19 05:51: ~Whit e Blood Count 13.6H, Red Blood Count 3.31 L, Hemoglobin 10.9L, Hematocrit 33L, Mean Corpuscular ~Volume 99, Mean Corpuscula r Hemoglobin 33, Mean Corpuscular Hemoglo bin Concent 33, Red Cell ~Distribution Widt h 13.7, Platelet Count 407H, Mean Platele t Volume 9.0, Sodium Level 141, Potassium ~Level 3.7, Chloride Level 108H, Carbon Dioxide Level 18L, Anion Gap 15H, Blood Urea Nitrogen 10, ~Creatinine 0.63, Estimat Glomerular Filtration Rate > 60, BUN/Creatinine Ratio 16, Glucose Level 75,~Calcium Level 8.2L, Magnesium Level 1.8 ~ ~Assessment/Plan ~Assessment/Plan ~Assessment/Plan ~LLQ ABDOMINAL PAIN ~A CUTE DIVERTICULITIS ~LEUKOCYTOSIS ~HYPOKALEM IA ~ ~clears if tolerates ~IV HYDRATION ~UNASYN/FLAGYL ~REPEAT LABS in am ~CONSERVATIVE MANAGEMENT ~PLAN COLONOSC OPY OUTPATIENT ABOUT 6-8 WEEKS ~ ~Clinical Quality Measures ~DVT/VTE Risk/Contraindication: ~Risk Factor Sco re Per Nursin ~RFS Level Per Nursing on Ad katia: 4+=Very High ~ ~ ~ ~STEPHANY TELLEZ DO J 2019 23:00 ~ ~ ~<Created by STEPHANY DUMONT> ~<Electronically signed by STEPHANY TELLEZ DO> 12/19/19 2300 ~ ~ laboratory on 2019-12-19 Anion gap 15 mmol/L High 5-14 PENDING 12-18-2 [Moles/Vol] mmol/L [facility] 01:51-0 ([id number]) 400 Calcium [Mass/Vol] 8.2 mg/dL Low 8.5-10.1 PENDING 07-1 3-2 mg/dL [facility] 020 [facility] 01:51-0 ([id number]) 400 Chloride [Moles/Vol] 108 mmol/L High 98-107 PENDING 0 7-13-2 mmol/L [facility] 020 [facility] 01:51-0 ([id number]) 400 CO2 [Moles/Vol] 18 mmol/L Low 21-32 PENDING 07-13-2 mmol/L [facility] 020 [facility] 01:51-0 ([id number]) 400 Creatinine 0.63 mg/dL Negative 0.60-1.30 PENDING 12-18-2 [Mass/Vol] mg/dL [facility] 020 [facility] 01:51-0 ([id number]) 400 Creatinine and > Invalid PENDING Glomerular Interpreta [facility] 020 filtration tion Code [facility] :51-0 rate.predicted panel ([id number]) 400 - Serum, Plasma or Blood Erythrocyte 13.7 % Negative 10.0-14.5 PENDING 2 distribution width % [facility] 020 (RBC) [Ratio] N [facility] :51-0 ([id number]) 400 Glucose [Mass/Vol] 75 mg/dL Negative 70-105 PENDING 07-1 3-2 mg/dL [facility] 020 [facility] :51-0 ([id number]) 400 Hematocrit (Bld) 33 % Low 35-52 % PENDING [Volume fraction] [facility] 020 [facility] 01:51-0 ([id number]) 400 Hemoglobin (Bld) 10.9 g/dL Low 11.5-16.0 PENDING 12-18- 2 [Mass/Vol] g/dL [facility] 020 [facility] 01:51-0 ([id number]) 400 Magnesium [Mass/Vol] 1.8 mg/dL Negative 1.6-2.4 PENDING -2 mg/dL [facility] 020 [facility] 01:51-0 ([id number]) 400 MCH (RBC) [Entitic 33 pg Negative 25-34 pg PENDING 07-1 3-2 mass] [facility] 020 [facility] 01:51-0 ([id number]) 400 MCHC (RBC) 33 g/dL Negative 32-36 g/dL PENDING 07-13-2 [Mass/Vol] LOC[facility] 020 N [facility] 01:51-0 ([id number]) 400 MCV (RBC) [Entitic 99 Negative 80-99 PENDING 12-06 3-2 vol] [foz_us] LOC[facility] 020 N [facility] 01:51-0 ([id number]) 400 Platelet mean volume 9.0 Negative 7.4-10.4 PENDING (Bld) [Entitic vol] [foz_us] [facility] 020 N [facility] 01:51-0 ([id number]) 400 Platelets (Bld) 407 10*3/uL High 130-400 PENDING 12-18 [#/Vol] 10*3/uL [facility] 020 N [facility] 01:51-0 ([id number]) 400 Potassium 3.7 mmol/L Negative 3.6-5.0 PENDING [Moles/Vol] mmol/L [facility] 020 [facility] 01:51-0 ([id number]) 400 RBC (Bld) [#/Vol] 3.31 10*6/uL Low 4.35-5.85 PENDING 10*6/uL [facility] 020 [facility] 01:51-0 ([id number]) 400 Sodium [Moles/Vol] 141 mmol/L Negative 135-145 PENDING mmol/L [facility] 020 N [facility] 01:51-0 ([id number]) 400 Urea nitrogen 10 mg/dL Negative 7-18 mg/dL PENDING [Mass/Vol] [facility] 020 [facility] 01:51-0 ([id number]) 400 Urea 16 mg/mg Invalid PENDING nitrogen/Creatinine Interpreta [facility] 020 [Mass ratio] tion Code N [facility] 01:51-0 ([id number]) 400 WBC (Bld) [#/Vol] 13.6 10*3/uL High 4.3-11.0 PENDING 10*3/uL [facility] 020 N [facility] 01:51-0 ([id number]) 400 not yet categorized on 2019-12-18 NAME: RICKY SIEGEL ~MED REC#: [id number] Invalid PENDING ~ ~PHYSICIAN: STEPHANY Goyal DO ~Subjective ~Date Seen by a kamryn Avila [facility] Provider: Dec 18, 2019 ~Time Seen by a ([id number]) Provider: 09:17 ~Subjective/Events-last exam ~Feeling little better today. 2 liquid stools this morning. Still with pain but not a s bad. ~Ambulating. Has a little nausea last n ight, but improved. ~Denies fever sweats chil ls shortness of breath or chest pain. WBC minimal up today from yesterday. ~ ~Obj ective ~Exam ~ ~Vital Signs ~ ~ ~ Date Time Te mp Pulse Resp B/P (MAP) Pulse Ox O2 Delive ry O2 Flow Rate FiO2 ~ ~12/18/19 12:00 36.5 84 20 177/87 (117) 97 Room Air ~ ~12/18/19 09: 40 Room Air ~ ~12/18/19 09:28 36.2 82 18 14 6/80 (102) 96 Room Air ~ ~12/18/19 04:00 36.3 78 18 125/64 (84) 95 Room Air ~ ~12/17/19 23:0 5 36.8 89 18 126/70 (88) 96 Room Air ~ ~12/16/2 0 21:00 98 Room Air ~ ~12/17/19 19:30 37.1 87 18 148/85 (106) 98 Room Air ~ ~12/17/19 17: 40 36.9 89 18 145/80 (101) 97 Room Air ~ ~ ~ ~ ~I O ~ ~ 12/18/19 ~ ~ 07:00 ~ ~Intake To herb 2200 ml ~ ~Output Total 1050 ml ~ ~Ruben nce 1150 ml ~ ~Capillary Refill : Less Than 3 Seconds ~General Appearance: No Apparen t Distress ~HEENT: PERRL/EOMI ~Neck: Full Range of Motion, Normal Inspection, Non Tende r ~Respiratory: Chest Non Tender, Lungs C lear ~Cardiovascular: Regular Rate, Rhythm, No Edema ~Gastrointestinal: soft; No guard ing, No rebound; tenderness (llq) ~Extremity : Non Tender, No Calf Tenderness ~Neurologic/Psychiatric: Alert, Oriente d x3, No Motor/Sensory Deficits, Normal Mood/Affect, fire hose curer II-~XII Norm as Tested ~Skin: Normal Color, Warm/Dry ~Lymphati c: No Adenopathy ~ ~Results ~Lab ~Laboratory Tests ~12/18/19 03:37: ~White Blood Count 16.0 H, Red Blood Count 3.20L, Hemoglobin 10.5L, Hematocrit 32L, Mean Corpuscular ~Volum e 99, Mean Corpuscular Hemoglobin 33, Mean Corpuscular Hemoglobin Concent 33, Red Cell ~Distribution Width 13.5, Platelet Coun t 361, Mean Platelet Volume 9.5, Sodium Level 143, Potassium ~Level 3.1L, Chloride Level 1 11H, Carbon Dioxide Level 18L, Anion Gap 14, Blood Urea Nitrogen 16, ~Creatinine 0.65, Est imat Glomerular Filtration Rate > 60, BUN/Creatinine Ratio 25, Glucose Level 70,~Calcium Level 8.3L, Magnesium Level 1.8 ~ ~Assessment/Plan ~Assessment/Plan ~Assessment/Plan ~LLQ ABDOMINAL PAIN ~A CUTE DIVERTICULITIS ~LEUKOCYTOSIS ~HYPOKALEM IA ~ ~Sips of clears ~IV HYDRATION ~UNASYN/F LAGYL ~REPEAT LABS in am ~CONSERVATIVE MANAGE MENT ~Replace K ~PLAN COLONOSCOPY OUTPATIENT ABOUT 6-8 WEEKS ~ ~Clinical Quality Measures ~DVT/VTE Risk/Contraindication: ~Risk F actor Score Per Nursin ~RFS Level Per Lisa sing on Admit: 4+=Very High ~ ~ ~ ~EVI TELLEZ DO Dec 18, 2019 16:11 ~ ~ ~<Created by STEPHANY TELLEZ DO> ~<Electronically signed by STEPHANY TELLEZ DO> 12/18/19 1611 ~ ~ not yet categorized on 2019-12-17 NAME: RICKY SIEGEL Golden ~MED REC#: [id number] Invalid PENDING ~ ~PHYSICIAN: STEPHANY Goyal DO ~Subjective ~Date Seen by a tion Code Margarita KHMariah Provider: Dec 17, 2019 ~Time Seen by a ([id number]) Provider: 06:46 ~Subjective/Events-last exam ~Feeling a little better today. Had vira sea yesterday afternoon. Pain moderate lowe r abdomen and ~feels gassy. Passing flatu s. No bm. ~WBC down 15.2 . Denies n/v fever s weats chills shortness of breath or chest paige n at this time. ~ ~Objective ~Exam ~ ~Vital Signs ~ ~ ~ Date Time Temp Pulse Resp B/P (MA P) Pulse Ox O2 Delivery O2 Flow Rate FiO2 ~ ~12/17/19 04:45 36.6 86 16 100/60 (73) 9 5 Room Air ~ ~12/16/19 23:53 36.8 85 20 116/60 (78) 95 Room Air ~ ~12/16/19 21:00 95 Room r ~ ~12/16/19 20:30 37.1 88 16 114/59 (77) 9 4 Room Air ~ ~12/16/19 16:00 37.2 98 20 116/60 (78) 98 Room Air ~ ~12/16/19 12:00 36.6 76 20 99/62 (74) 95 Room Air ~ ~ ~ ~ ~I O ~ ~ ~ ~ 07:00 ~ ~Intake Total 2900 ml ~ ~Output Total 950 ml ~ ~Balance 1950 ml ~ ~Capillary Refill : Less Than 3 Seconds ~General Appearan ce: No Apparent Distress ~HEENT: PERRL/EOMI ~N claudine: Full Range of Motion, Normal Inspection , Non Tender ~Respiratory: Chest Non Tender, Lungs Clear ~Cardiovascular: Regular Rate, Rh ythm, No Edema ~Gastrointestinal: soft; No guarding, No rebound; tenderness (llq) ~Extremity: Non Tender, No Calf Tendern ess ~Neurologic/Psychiatric: Alert, Oriente d x3, No Motor/Sensory Deficits, Normal Mood/Affect, fire hose curer II-~XII Norm as Tested ~Skin: Normal Color, Warm/Dry ~Lymphati c: No Adenopathy ~ ~Results ~Lab ~Laboratory Tests ~12/16/19 15:30: Glucometer 115H ~ 0 04:51: ~White Blood Count 15.2H, Red Bl ood Count 3.23L, Hemoglobin 10.4L, Hematocr it 31L, Mean Corpuscular ~Volume 97, Mean Corpuscular Hemoglobin 32, Mean Corpusc ular Hemoglobin Concent 33, Red Cell ~Distri bution Width 19.3H, Platelet Count 279, Mean Platelet Volume 10.2, Sodium Level 142, Potassium~Level 3.4L, Chloride Level 10 9H, Carbon Dioxide Level 20L, Anion Gap 13, Blood Urea Nitrogen 15, ~Creatinine 0.73, Est imat Glomerular Filtration Rate > 60, BUN/Creatinine Ratio 21, Glucose Level 84,~Calcium Level 8.5, Corrected Calciu m 9.3, Magnesium Level 1.7, Total Bilirubin 0. 5, Aspartate Amino ~Transf (AST/SGOT) 18, Alanine Aminotransferase (ALT/SGPT) 22, Alkaline Phosphatase 98, Total Protein~ 5.6L, Albumin 3.0L ~ ~Assessment/Plan ~Assessment/Plan ~Assessment/Plan ~LLQ ABDOMINAL PAIN ~ACUTE DIVERTICULITIS ~LEUKOCYTOSIS ~ ~NPO ~IV HYDRATION ~WBC trending down continue UNASYN/FLAGYL ~R EPEAT LABS in am ~CONSERVATIVE MANAGEMENT ~PL AN COLONOSCOPY OUTPATIENT ABOUT 6-8 WEEKS ~ ~Clinical Quality Measures ~DVT/VTE Risk/Contraindication: ~Risk Factor Sco re Per Nursin ~RFS Level Per Nursing on Ad katia: 4+=Very High ~ ~ ~ ~STEPHANY TELLEZ DO 2019 08:26 ~ ~ ~<Created by STEPHANY DUMONT> ~<Electronically signed by STEPHANY TELLEZ DO> 12/17/19 0826 ~ ~ NAME: RICKY SIEGEL ~MED REC#: [id number] Invalid PENDING ~ ~PHYSICIAN: STEPHANY Goyal DO ~Subjective ~Date Seen by a kamryn MAYNARD Provider: Dec 17, 2019 ~Time Seen by a ([id number]) Provider: 06:46 ~Subjective/Events-last exam ~Feeling a little better today. Had vira sea yesterday afternoon. Pain moderate lowe r abdomen and ~feels gassy. Passing flatu s. No bm. ~WBC down 15.2 . Denies n/v fever s weats chills shortness of breath or chest paige n at this time. ~ ~Objective ~Exam ~ ~Vital Signs ~ ~ ~ Date Time Temp Pulse Resp B/P (MA P) Pulse Ox O2 Delivery O2 Flow Rate FiO2 ~ ~12/17/19 04:45 36.6 86 16 100/60 (73) 9 5 Room Air ~ ~12/16/19 23:53 36.8 85 20 116/60 (78) 95 Room Air ~ ~12/16/19 21:00 95 Room r ~ ~12/16/19 20:30 37.1 88 16 114/59 (77) 9 4 Room Air ~ ~12/16/19 16:00 37.2 98 20 116/60 (78) 98 Room Air ~ ~12/16/19 12:00 36.6 76 20 99/62 (74) 95 Room Air ~ ~ ~ ~ ~I O ~ ~ ~ ~ 07:00 ~ ~Intake Total 2900 ml ~ ~Output Total 950 ml ~ ~Balance 1950 ml ~ ~Capillary Refill : Less Than 3 Seconds ~General Appearan ce: No Apparent Distress ~HEENT: PERRL/EOMI ~N claudine: Full Range of Motion, Normal Inspection , Non Tender ~Respiratory: Chest Non Tender, Lungs Clear ~Cardiovascular: Regular Rate, Rh ythm, No Edema ~Gastrointestinal: soft; No guarding, No rebound; tenderness (llq) ~Extremity: Non Tender, No Calf Tendern ess ~Neurologic/Psychiatric: Alert, Oriente d x3, No Motor/Sensory Deficits, Normal Mood/Affect, fire hose curer II-~XII Norm as Tested ~Skin: Normal Color, Warm/Dry ~Lymphati c: No Adenopathy ~ ~Results ~Lab ~Laboratory Tests ~12/16/19 15:30: Glucometer 115H ~ 0 04:51: ~White Blood Count 15.2H, Red Bl ood Count 3.23L, Hemoglobin 10.4L, Hematocr it 31L, Mean Corpuscular ~Volume 97, Mean Corpuscular Hemoglobin 32, Mean Corpusc ular Hemoglobin Concent 33, Red Cell ~Distri bution Width 19.3H, Platelet Count 279, Mean Platelet Volume 10.2, Sodium Level 142, Potassium~Level 3.4L, Chloride Level 10 9H, Carbon Dioxide Level 20L, Anion Gap 13, Blood Urea Nitrogen 15, ~Creatinine 0.73, Est imat Glomerular Filtration Rate > 60, BUN/Creatinine Ratio 21, Glucose Level 84,~Calcium Level 8.5, Corrected Calciu m 9.3, Magnesium Level 1.7, Total Bilirubin 0. 5, Aspartate Amino ~Transf (AST/SGOT) 18, Alanine Aminotransferase (ALT/SGPT) 22, Alkaline Phosphatase 98, Total Protein~ 5.6L, Albumin 3.0L ~ ~Assessment/Plan ~Assessment/Plan ~Assessment/Plan ~LLQ ABDOMINAL PAIN ~ACUTE DIVERTICULITIS ~LEUKOCYTOSIS ~ ~NPO ~IV HYDRATION ~WBC trending down continue UNASYN/FLAGYL ~R EPEAT LABS in am ~CONSERVATIVE MANAGEMENT ~PL AN COLONOSCOPY OUTPATIENT ABOUT 6-8 WEEKS ~ ~Clinical Quality Measures ~DVT/VTE Risk/Contraindication: ~Risk Factor Sco re Per Nursin ~RFS Level Per Nursing on Ad katia: 4+=Very High ~ ~ ~ ~STEPHANY TELLEZ DO J 2019 08:26 ~ ~ ~<Created by STEPHANY HERZOG DO> ~<Electronically signed by STEPHANY TELLEZ DO> 12/17/19 0826 ~ ~ ~ ~ REPORT ADDEND UM ~ ~ ~ ~Addendum: STEPHANY TELLEZ DO on @ 08:28 ~ ~hypokalemia- replace ~ ~<Creat ed by STEPHANY TELLEZ DO 12/17/19 0828 ~<Electronically signed by laboratory on 2019-12-17 Albumin [Mass/Vol] 3.0 g/dL Low 3.2-4.5 PENDING 12-06 1-2 g/dL [facility] 00:51-0 ([id number]) 400 ALP [Catalytic 98 U/L Negative 40-136 U/L PENDING 12-16- activity/Vol] [facility] 00:51-0 ([id number]) 400 ALT [Catalytic 22 U/L Negative 0-55 U/L PENDING 12-16- activity/Vol] [facility] 00:51-0 ([id number]) 400 Anion gap 13 mmol/L Negative 5-14 PENDING --2 [Moles/Vol] mmol/L [facility] 00:51-0 ([id number]) 400 Anion gap 14 mmol/L Negative 5-14 PENDING --2 [Moles/Vol] mmol/L [facility] 23:37-0 ([id number]) 400 AST [Catalytic 18 U/L Negative 5-34 U/L PENDING activity/Vol] [facility] 00:51-0 ([id number]) 400 Bilirubin [Mass/Vol] 0.5 mg/dL Negative 0.1-1.0 PENDING -2 mg/dL [facility] 020 [facility] 00:51-0 ([id number]) 400 Calcium [Mass/Vol] 8.5 mg/dL Negative 8.5-10.1 PENDING 07-1 1-2 mg/dL [facility] 020 [facility] 00:51-0 ([id number]) 400 Calcium [Mass/Vol] 9.3 mg/dL Negative 8.5-10.1 PENDING 07-1 1-2 mg/dL [facility] 020 [facility] 00:51-0 ([id number]) 400 Calcium [Mass/Vol] 8.3 mg/dL Low 8.5-10.1 PENDING 07-1 1-2 mg/dL [facility] 020 [facility] 23:37-0 (51500) 400 Chloride [Moles/Vol] 109 mmol/L High 98-107 PENDING 0 7-11-2 mmol/L [facility] 020 [facility] 00:51-0 (03982) 400 Chloride [Moles/Vol] 111 mmol/L High 98-107 PENDING 0 7-11-2 mmol/L [facility] 020 [facility] 23:37-0 (43094) 400 CO2 [Moles/Vol] 20 mmol/L Low 21-32 PENDING 07-11-2 mmol/L [facility] 020 [facility] 00:51-0 (31069) 400 CO2 [Moles/Vol] 18 mmol/L Low 21-32 PENDING 07-11-2 mmol/L [facility] 020 [facility] 23:37-0 (43295) 400 Creatinine 0.73 mg/dL Negative 0.60-1.30 PENDING 11-2 [Mass/Vol] mg/dL [facility] 020 [facility] 00:51-0 (72700) 400 Creatinine 0.65 mg/dL Negative 0.60-1.30 PENDING 11-2 [Mass/Vol] mg/dL [facility] 020 [facility] 23:37-0 ([id number]) 400 Creatinine and > Invalid PENDING 2 Glomerular Interpreta [facility] 020 filtration tion Code [facility] 00:51-0 rate.predicted panel ([id number]) 400 - Serum, Plasma or Blood Creatinine and > Invalid PENDING 12-16-2 Glomerular Interpreta [facility] 020 filtration tion Code [facility] 23:37-0 rate.predicted panel ([id number]) 400 - Serum, Plasma or Blood Erythrocyte 19.3 % High 10.0-14.5 PENDING -11-2 distribution width % [facility] 020 (RBC) [Ratio] [facility] 00:51-0 ([id number]) 400 Erythrocyte 13.5 % Negative 10.0-14.5 PENDING -11-2 distribution width % [facility] 020 (RBC) [Ratio] N [facility] 23:37-0 ([id number]) 400 Glucose [Mass/Vol] 84 mg/dL Negative 70-105 PENDING 07-1 1-2 mg/dL [facility] 020 [facility] 00:51-0 (42443) 400 Glucose [Mass/Vol] 70 mg/dL Negative 70-105 PENDING 07-1 1-2 [facility] 23:37-0 ([id number]) 400 Hematocrit (Bld) 31 % Low 35-52 % PENDING 12-16- 2 [Volume fraction] [facility] 020 [facility] 00:51-0 (56743) 400 Hematocrit (Bld) 32 % Low 35-52 % PENDING 12-16- 2 [Volume fraction] [facility] 020 [facility] 23:37-0 ([id number]) 400 Hemoglobin (Bld) 10.4 g/dL Low 11.5-16.0 PENDING -11- 2 [Mass/Vol] g/dL [facility] 020 [facility] 00:51-0 ([id number]) 400 Hemoglobin (Bld) 10.5 g/dL Low 11.5-16.0 PENDING -11- 2 [Mass/Vol] g/dL [facility] 020 [facility] 23:37-0 ([id number]) 400 Magnesium [Mass/Vol] 1.7 mg/dL Negative 1.6-2.4 PENDING 07 -11-2 mg/dL [facility] 020 [facility] 00:51-0 ([id number]) 400 Magnesium [Mass/Vol] 1.8 mg/dL Negative 1.6-2.4 PENDING 07 -11-2 mg/dL [facility] 020 [facility] 23:37-0 (76817) 400 MCH (RBC) [Entitic 32 pg Negative 25-34 pg PENDING 07-1 1-2 mass] [facility] 020 [facility] 00:51-0 ([id number]) 400 MCH (RBC) [Entitic 33 pg Negative 25-34 pg PENDING -1 1-2 mass] [facility] 020 N [facility] 23:37-0 (27490) 400 MCHC (RBC) 33 g/dL Negative 32-36 g/dL PENDING 2 [Mass/Vol] [facility] 020 N [facility] 00:51-0 ([id number]) 400 MCHC (RBC) 33 g/dL Negative 32-36 g/dL PENDING 2 [Mass/Vol] [facility] 020 [facility] 23:37-0 (49416) 400 MCV (RBC) [Entitic 97 Negative 80-99 PENDING 07-1 1-2 vol] [foz_us] [facility] 00:51-0 ([id number]) 400 MCV (RBC) [Entitic 99 Negative 80-99 PENDING 07-1 1-2 vol] [foz_us] [facility] 23:37-0 ([id number]) 400 Platelet mean volume 10.2 Negative 7.4-10.4 PENDING (Bld) [Entitic vol] [foz_us] [facility] 00:51-0 (81652) 400 Platelet mean volume 9.5 Negative 7.4-10.4 PENDING (Bld) [Entitic vol] [foz_us] [facility] 23:37-0 ([id number]) 400 Platelets (Bld) 279 10*3/uL Negative 130-400 PENDING 12-16 [#/Vol] 10*3/uL [facility] [address] [place] [address] 00:51-0 ([id number]) 400 Platelets (Bld) 361 10*3/uL Negative 130-400 PENDING 12-16 [#/Vol] 10*3/uL [facility] 020 [facility] 23:37-0 (88785) 400 Potassium 3.4 mmol/L Low 3.6-5.0 PENDING 2 [Moles/Vol] mmol/L [facility] 020 [facility] 00:51-0 (73302) 400 Potassium 3.1 mmol/L Low 3.6-5.0 PENDING 07-11-2 [Moles/Vol] mmol/L [facility] 020 N [facility] 23:37-0 (22235) 400 Protein [Mass/Vol] 5.6 g/dL Low 6.4-8.2 PENDING 07-1 1-2 g/dL [facility] 020 N [facility] 00:51-0 ([id number]) 400 RBC (Bld) [#/Vol] 3.23 10*6/uL Low 4.35-5.85 PENDING 10*6/uL [facility] 020 N [facility] 00:51-0 (41922) 400 RBC (Bld) [#/Vol] 3.20 10*6/uL Low 4.35-5.85 PENDING 10*6/uL [facility] 020 N [facility] 23:37-0 (41727) 400 Sodium [Moles/Vol] 142 mmol/L Negative 135-145 PENDING 04-09 mmol/L [facility] 020 [facility] 00:51-0 (71730) 400 Sodium [Moles/Vol] 143 mmol/L Negative 135-145 PENDING 2 mmol/L [facility] 020 [facility] 23:37-0 (53680) 400 Urea nitrogen 15 mg/dL Negative 7-18 mg/dL PENDING [Mass/Vol] [facility] 020 N [facility] 00:51-0 (35351) 400 Urea nitrogen 16 mg/dL Negative 7-18 mg/dL PENDING [Mass/Vol] [facility] 020 [facility] 23:37-0 (40060) 400 Urea 21 mg/mg Invalid PENDING nitrogen/Creatinine Interpreta [facility] 020 [Mass ratio] tion Code N [facility] 00:51-0 (16979) 400 Urea 25 mg/mg Invalid PENDING nitrogen/Creatinine Interpreta [facility] 020 [Mass ratio] tion Code N [facility] 23:37-0 (64835) 400 WBC (Bld) [#/Vol] 15.2 10*3/uL High 4.3-11.0 PENDING 10*3/uL [facility] 020 N [facility] 00:51-0 (20343) 400 WBC (Bld) [#/Vol] 16.0 10*3/uL High 4.3-11.0 PENDING 10*3/uL [facility] 020 [facility] 23:37-0 ([id number]) 400 laboratory on 2019-12-16 Basophils (Bld) 0.0 10*3/uL Negative 0.0-0.1 PENDING 12-15 [#/Vol] 10*3/uL [facility] 020 [facility] 01:02-0 (47129) 400 Basophils/100 WBC 0 % Negative 0-10 % PENDING 12-15 (Bld) [facility] 020 [facility] 01:02-0 ([id number]) 400 Eosinophils (Bld) 0.1 10*3/uL Negative 0.0-0.3 PENDING 03-09 [#/Vol] 10*3/uL [facility] 020 [facility] 01:02-0 (03856) 400 Eosinophils/100 WBC 1 % Negative 0-10 % PENDING 03-09 (Bld) [facility] 020 [facility] 01:02-0 (27173) 400 Erythrocyte 13.5 % Negative 10.0-14.5 PENDING distribution width % [facility] (RBC) [Ratio] [facility] 01:02-0 (11577) 400 Glucose [Mass/Vol] 115 mg/dL High 70-110 PENDING 07- 0-2 mg/[facility] 11:30-0 (02973) 400 Hematocrit (Bld) 34 % Low 35-52 % PENDING [Volume fraction] [facility] 020 [facility] 01:02-0 (51757) 400 Hemoglobin (Bld) 11.6 g/dL Negative 11.5-16.0 PENDING [Mass/Vol] g/dL [facility] 020 [facility] 01:02-0 (22276) 400 Lymphocytes (Bld) 1.3 10*3/uL Negative 1.0-4.0 PENDING 03-09 [#/Vol] 10*3 [facility] 020 [facility] 01:02-0 (75621) 400 Lymphocytes/100 WBC 6 % Low 12-44 % PENDING 03-09 (Bld) [address] 01:02-0 (07834) 400 MCH (RBC) [Entitic 34 pg Negative 25-34 pg PENDING -1 0-2 mass] [address] 01:02-0 (50205) 400 MCHC (RBC) 34 g/dL Negative 32-36 g/dL PENDING 12-15-2 [Mass/Vol] [address] 01:02-0 (91201) 400 MCV (RBC) [Entitic 98 Negative 80-99 PENDING 07-1 0-2 vol] [foz_us] [address] 01:02-0 (58813) 400 Monocytes (Bld) 1.3 10*3/uL High 0.0-1.0 PENDING 12-15 [#/Vol] 10*[address] 01:02-0 (71946) 400 Monocytes/100 WBC 6 % Negative 0-12 % PENDING 12-15 (Bld) [address] 01:02-0 (67112) 400 Neutrophils (Bld) 19.6 10*3/uL High 1.8-7.8 PENDING [#/Vol] 10*[address] 01:02-0 (95651) 400 Neutrophils/100 WBC 88 % High 42-75 % PENDING 03-09 (Bld) [address] 01:02-0 (28373) 400 Platelet mean volume 9.8 Negative 7.4-10.4 PENDING (Bld) [Entitic vol] [foz_us] [address] 01:02-0 ([id number]) 400 Platelets (Bld) 338 10*3/uL Negative 130-400 PENDING 12-15 [#/Vol] 10*3/uL [address] 01:02-0 (86446) 400 RBC (Bld) [#/Vol] 3.45 10*6/uL Low 4.35-5.85 PENDING -2 10*6/uL [address] 01:02-0 (71230) 400 WBC (Bld) [#/Vol] 22.3 10*3/uL High 4.3-11.0 PENDING 10*3/uL [facility] 020 [facility] 01:02-0 (97644) 400 laboratory on 2019-12-15 Albumin [Mass/Vol] 4.2 g/dL Negative 3.2-4.5 PENDING 07-0 9-2 g/dL [facility] 020 [facility] 08:43-0 (45517) 400 ALP [Catalytic 107 U/L Negative 40-136 U/L PENDING activity/Vol] [facility] 020 [facility] 08:43-0 (83569) 400 ALT [Catalytic 18 U/L Negative 0-55 U/L PENDING activity/Vol] [facility] 020 [facility] 08:43-0 (70121) 400 Anion gap 15 mmol/L High 5-14 PENDING [Moles/Vol] mmol/L [facility] 020 [facility] 08:43-0 (02804) 400 AST [Catalytic 22 U/L Negative 5-34 U/L PENDING activity/Vol] [facility] 020 [facility] 08:43-0 (02588) 400 Bacteria identified NG Invalid PENDING Cx Nom (Bld) Interpreta [facility] 020 tion Code [facility] 08:43-0 (00267) 400 Band form 5 % Invalid PENDING neutrophils/100 WBC Interpreta [facility] 020 (Bld) tion Code N [facility] 08:43-0 ([id number]) 400 Basophils (Bld) 0.0 10*3/uL Negative 0.0-0.1 PENDING 12-14 [#/Vol] 10*3/uL [facility] 020 [facility] 08:43-0 (20016) 400 Basophils/100 WBC 0 % Negative PENDING (Bld) [facility] 020 [facility] 08:43-0 (06117) 400 Bilirubin [Mass/Vol] 1.0 mg/dL Negative 0.1-1.0 PENDING mg/dL [facility] 020 [facility] 08:43-0 (99295) 400 Calcium [Mass/Vol] 10.7 mg/dL High 8.5-10.1 PENDING 02-07 mg/dL [facility] 020 [facility] 08:43-0 (20259) 400 Calcium [Mass/Vol] 10.5 mg/dL High 8.5-10.1 PENDING - mg/dL [facility] 020 [facility] 08:43-0 (79775) 400 Chloride [Moles/Vol] 99 mmol/L Negative 98-107 PENDING mmol/L [facility] 020 [facility] 08:43-0 (22586) 400 CO2 [Moles/Vol] 23 mmol/L Negative 21-32 PENDING mmol/L [facility] 020 [facility] 08:43-0 (42383) 400 Creatinine 0.94 mg/dL Negative 0.60-1.30 PENDING [Mass/Vol] mg/dL [facility] 020 [facility] 08:43-0 (52653) 400 Creatinine and 60 Invalid PENDING Glomerular Interpreta [facility] 020 filtration tion Code [place] [address]:43-0 rate.predicted panel ([id number]) 400 - Serum, Plasma or Blood Eosinophils (Bld) 0.1 10*3/uL Negative 0.0-0.3 PENDING 02-07 [#/Vol] 10*3/uL [facility] 020 [facility] 08:43-0 (03395) 400 Eosinophils/100 WBC 0 % Negative 0-10 % PENDING 02-07 (Bld) [facility] 020 [facility] 08:43-0 (76346) 400 Eosinophils/100 WBC 1 % Invalid PENDING (Nose) Interpreta [facility] 020 tion Code [facility] 08:43-0 (09064) 400 Erythrocyte 13.6 % Negative 10.0-14.5 PENDING distribution width % [facility] 020 (RBC) [Ratio] [facility] 08:43-0 (18027) 400 Glucose [Mass/Vol] 120 mg/dL High 70-105 PENDING 07- 9-2 mg/dL [facility] 020 [facility] 08:43-0 (29728) 400 Hematocrit (Bld) 41 % Negative 35-52 % PENDING [Volume fraction] [facility] 020 [facility] 08:43-0 (01634) 400 Hemoglobin (Bld) 14.2 g/dL Negative 11.5-16.0 PENDING [Mass/Vol] g/dL [facility] 020 [facility] 08:43-0 (41161) 400 Lymphocytes (Bld) 1.4 10*3/uL Negative 1.0-4.0 PENDING 02-07 [#/Vol] 10*3 [facility] 020 [facility] 08:43-0 (56700) 400 Lymphocytes/100 WBC 5 % Low 12-44 % PENDING 02-07 (Bld) [facility] 020 [facility] 08:43-0 (54622) 400 Lymphocytes/100 WBC 10 % Invalid PENDING (Bld) Interpreta [facility] 020 tion Code [facility] 08:43-0 (21109) 400 MCH (RBC) [Entitic 34 pg Negative 25-34 pg PENDING 9-2 mass] [facility] 020 [facility] 08:43-0 (78423) 400 MCHC (RBC) 35 g/dL Negative 32-36 g/dL PENDING [Mass/Vol] [facility] 020 [facility] 08:43-0 (92261) 400 MCV (RBC) [Entitic 97 Negative 80-99 PENDING 07- 9-2 vol] [foz_us] [facility] 020 [facility] 08:43-0 (25179) 400 Monocytes (Bld) 1.3 10*3/uL High 0.0-1.0 PENDING 12-14 [#/Vol] 10*3 [facility] 020 [facility] 08:43-0 (59697) 400 Monocytes/100 WBC 4 % Negative 0-12 % PENDING 12-14 (Bld) [facility] 020 [facility] 08:43-0 (56373) 400 Monocytes/100 WBC 2 % Invalid PENDING (Bld) Interpreta [facility] 020 tion Code [facility] 08:43-0 (73011) 400 Neutrophils (Bld) 27.0 10*3/uL High 1.8-7.8 PENDING [#/Vol] 10*3 [facility] 020 N [facility] 08:43-0 (69183) 400 Neutrophils/100 WBC 91 % High 42-75 % PENDING 02-07 (Bld) [facility] 020 N [facility] 08:43-0 (84016) 400 Platelet mean volume 9.9 Negative 7.4-10.4 PENDING (Bld) [Entitic vol] [foz_us] [facility] 020 [facility] 08:43-0 (41201) 400 Platelets (Bld) 379 10*3/uL Negative 130-400 PENDING 12-14 [#/Vol] 10*3/uL [facility] 020 [facility] 08:43-0 (93916) 400 Potassium 3.8 mmol/L Negative 3.6-5.0 PENDING [Moles/Vol] mmol/L [facility] 020 [facility] 08:43-0 (47341) 400 Protein [Mass/Vol] 7.8 g/dL Negative 6.4-8.2 PENDING 9-2 g/dL [facility] 020 [facility] 08:43-0 (82102) 400 RBC (Bld) [#/Vol] 4.22 10*6/uL Low 4.35-5.85 PENDING 10*6/uL [facility] 020 [facility] 08:43-0 (08842) 400 RBC morphology NORMAL Invalid PENDING finding Nom (Bld) Interpreta [facility] 020 tion Code N [facility] 08:43-0 (10996) 400 Segmented 82 % Invalid PENDING neutrophils/100 WBC Interpreta [facility] 020 (Bld) tion Code N [facility] 08:43-0 (10999) 400 Sodium [Moles/Vol] 137 mmol/L Negative 135-145 PENDING 02-07 mmol/L [facility] 020 N [facility] 08:43-0 (55919) 400 Urea nitrogen 15 mg/dL Negative 7-18 mg/dL PENDING [Mass/Vol] [facility] 020 [facility] 08:43-0 (46475) 400 Urea 16 mg/mg Invalid PENDING nitrogen/Creatinine Interpreta [facility] 020 [Mass ratio] tion Code N [facility] 08:43-0 (42627) 400 WBC (Bld) [#/Vol] 29.8 10*3/uL High 4.3-11.0 PENDING 10*3/uL [facility] 020 N [facility] 08:43-0 (97659) 400 laboratory on 2019-08-31 25-hydroxyvitamin D3 26 ng/mL Low 30-100 Commu ni [Mass/Vol] ng/mL ty [facility] (59483) Albumin [Mass/Vol] 4.4 g/dL Normal 3.6-5.1 Communi g/dL [facility] (69602) Albumin/Globulin 2.2 {ratio} Normal 1.0-2.5 Communi [Mass ratio] (calc) [facility] (87477) ALP [Catalytic 72 U/L Normal 37-153 U/L Communi activity/Vol] [facility] (01176) ALT [Catalytic 15 U/L Normal 6-29 U/L Communi activity/Vol] [facility] (99961) AST [Catalytic 15 U/L Normal 10-35 U/L Communi activity/Vol] [facility] (20527) Basophils (Bld) 0.061 10*3/uL Normal 0-200 Communi [#/Vol] cells/uL [facility] (86279) Basophils/100 WBC 0.9 % Normal % Communi (Bld) [facility] (91076) Bilirubin [Mass/Vol] 0.7 mg/dL Normal 0.2-1.2 Commu ni mg/dL [facility] (90848) Calcium [Mass/Vol] 10.0 mg/dL Normal 8.6-10.4 Communi mg/dL [facility] (41171) Chloride [Moles/Vol] 101 mmol/L Normal 98-110 Commu ni mmol/L [facility] (26937) Cholesterol 217 mg/dL High <200 mg/dL Communi [Mass/Vol] [facility] (81294) Cholesterol in HDL 56 mg/dL Normal > OR = 50 Communi [Mass/Vol] mg/dL ty [facility] (56359) Cholesterol in LDL 118 mg/dL High mg/dL Communi [Mass/Vol] (calc) ty [facility] (44900) Cholesterol non HDL 161 mg/dL High <130 mg/dL Commun i [Mass/Vol] (calc) ty [facility] (90976) Cholesterol.total/Ch 3.9 {ratio} Normal <5.0 Commu ni olesterol in HDL (calc) ty [Mass ratio] [facility] (40167) CO2 [Moles/Vol] 32 mmol/L Normal 20-32 Communi mmol/L ty [facility] (35863) Creatinine 0.72 mg/dL Normal 0.50-0.99 Communi [Mass/Vol] mg/dL ty [facility] (83351) Eosinophils (Bld) 0.469 10*3/uL Normal 15-500 Commun i [#/Vol] cells/uL ty [facility] (47004) Eosinophils/100 WBC 6.9 % Normal % Commun i (Bld) ty [facility] (58100) Erythrocyte 12.6 % Normal 11.0-15.0 Communi distribution width % ty (RBC) [Ratio] [facility] (31656) Free T4 [Mass/Vol] 1.3 ng/dL Normal 0.8-1.8 Communi ng/dL ty [facility] (85074) GFR/1.73 sq 102 mL/min/{1.73_m2} Normal > OR = 60 Commu ni M.predicted among mL/min/1.7 ty blacks MDRD 3m2 Health (S/P/Bld) [Vol Center rate/Area] [facility] (68993) GFR/1.73 sq 88 mL/min/{1.73_m2} Normal > OR = 60 Commun i M.predicted MDRD mL/min/1.7 ty (S/P/Bld) [Vol 3m2 Health rate/Area] [facility] (07039) Globulin (S) 2.0 g/dL Normal 1.9-3.7 Communi [Mass/Vol] g/dL ty (calc) [facility] (09788) Glucose [Mass/Vol] 89 mg/dL Normal 65-99 Communi mg/dL [facility] (73491) HbA1c (Bld) [Mass 5.3 Normal <5.7 % of Communi fraction] total Hgb [facility] (05616) Hematocrit (Bld) 45.9 % High 35.0-45.0 Communi [Volume fraction] % [facility] (42618) Hemoglobin (Bld) 15.7 g/dL High 11.7-15.5 Communi [Mass/Vol] g/dL [facility] (21379) Lymphocytes (Bld) 1.809 10*3/uL Normal 850-3900 Commun i [#/Vol] cells/uL [facility] (83511) Lymphocytes/100 WBC 26.6 % Normal % Commun i (Bld) [facility] (97536) MCH (RBC) [Entitic 34.0 pg High 27.0-33.0 Communi mass] pg [facility] (92751) MCHC (RBC) 34.2 g/dL Normal 32.0-36.0 Communi [Mass/Vol] g/dL [facility] (80759) MCV (RBC) [Entitic 99.4 fL Normal 80.0-100.0 Communi vol] fL [facility] (15531) Monocytes (Bld) 0.374 10*3/uL Normal 200-950 Communi [#/Vol] cells/uL [facility] (32578) Monocytes/100 WBC 5.5 % Normal % Communi (Bld) [facility] (24821) Neutrophils (Bld) 4.087 10*3/uL Normal 9458-0608 Commun i [#/Vol] cells/uL [facility] (23540) Neutrophils/100 WBC 60.1 % Normal % Commun i (Bld) ty [facility] (83063) Platelet mean volume 10.3 fL Normal 7.5-12.5 Commu ni (Bld) [Entitic vol] fL ty [facility] (72048) Platelets (Bld) 326 10*3/uL Normal 140-400 Communi [#/Vol] Thousand/u ty L [facility] (65796) Potassium 4.4 mmol/L Normal 3.5-5.3 Communi [Moles/Vol] mmol/L ty [facility] (81464) Protein [Mass/Vol] 6.4 g/dL Normal 6.1-8.1 Communi g/dL [facility] (12225) RBC (Bld) [#/Vol] 4.62 10*6/uL Normal 3.80-5.10 Communi Million/uL ty [facility] (83453) Sodium [Moles/Vol] 142 mmol/L Normal 135-146 Communi mmol/L ty [facility] (52738) Triglyceride 279 mg/dL High <150 mg/dL Communi [Mass/Vol] ty [facility] (46117) TSH Qn 2.10 m[IU]/L Normal 0.40-4.50 Communi mIU/L ty [facility] (48157) Urea nitrogen 21 mg/dL Normal 7-25 mg/dL Communi [Mass/Vol] ty [facility] (77089) Urea NOT APPLICABLE Invalid 6-22 Communi nitrogen/Creatinine Interpreta (calc) ty [Mass ratio] tion Code [facility] ([id number]) WBC (Bld) [#/Vol] 6.8 10*3/uL Normal 3.8-10.8 Communi Thousand/u ty L [facility] (95987) Social History No Information Vital Signs Date Time Vital Sign Value Performing Clinician Facil ity 08-10-2018 Body height 156.21 cm RHONA AGRAWAL [facility] 11:20-0500 Other Phone: [facility] ([id number]) 08-10-2018 Body mass index 30.58 kg/m2 RHONA AGRAWAL [facility] 11: (BMI) [Ratio] Other Phone: [facility] () 08-10-2018 Body temperature 99.7 [degF] RHONA AGRAWAL Pending Sale To [facility] ity [facility] 11:0500 Other Phone: [facility] () 08-10-2018 Body weight 74.62 kg RHONA AGRAWAL [facility] ealt 11:0500 Other Phone: [facility] () Functional Status The data below is from [...] surgeries n History Hospitalizatio septic n History [facility] ([id number]) Clinical Note Note Date & Note Facility Type Note NAME: RICKY SIEGEL [place] ~MED REC#: [id number] ~ACCOUNT#: PENDING LOCATION [facility] [id number] ~PHYSICIAN: RHONA BROOKE DO ~Standar d Progress ([id number]) Note ~Progress Notes/Assess Plan ~Date Seen by a Provider: Dec 16, 2019 ~Time Seen by a Provider: 13:00 ~P rogress/Assessment Plan ~Patient doing better today, NPO per duong frances rec. Pain is better, and afebrile since 030 this AM. ~ ~ ~V ital Sign - Last 24 Hours ~ ~ ~ 12/15/19 12/15/19 12/15/19 12/15/19 ~ ~ 13: 50 14:15 14:15 15:20 ~ ~Temp 37.4 37.4 37.4 ~ ~Pulse 118 118 1 18 ~ ~Resp 16 16 16 ~ ~B/P (MAP) 129/67 (87) 129/67 ~ ~Pulse Ox 10 0 100 100 ~ ~O2 Delivery Room Air Room Air Room Air Room Air ~ ~ ~ ~ 7/9/20 7/9/20 7/9/20 7/9/20 ~ ~ 16:21 18:30 20:02 21:00 ~ ~T emp 37.8 38.6 37.8 ~ ~Pulse 113 107 ~ ~Resp 20 16 ~ ~B/P (MAP) 124/ 75 (91) 111/69 (83) ~ ~Pulse Ox 99 99 ~ ~O2 Delivery Room Air Room Air Room Air ~ ~ ~ ~ 12/15/19 12/16/19 12/16/19 12/16/19 ~ ~ 23:2 8 03:09 08:01 08:20 ~ ~Temp 37.0 37.6 36.6 ~ ~Pulse 84 89 87 ~ ~Res p 14 14 20 ~ ~B/P (MAP) 93/54 (67) 104/59 (74) 110/69 (83) ~ ~P ulse Ox 62 95 97 97 ~ ~O2 Delivery Room Air Room Air Room Air Lynsey m Air ~ ~ ~ ~ ~Intake and Output ~ ~ 12/15/19 12/15/19 12/16/19 ~ ~ 14 :59 22:59 06:59 ~ ~Intake Total 1065 ml 1200 ml ~ ~Output Total 0 ml 400 ml ~ ~Balance 1065 ml 800 ml ~ ~ ~ ~ ~Diagnosis: ~Acute di verticulits ~LLQ pain ~ ~P: ~Recommendations per General Surgery ~C ontinue NPO and Antibiotics ~Plan for DC once improvement in pain a nd afebrile 24 hrs. ~ ~ ~ ~RHONA BROOKE DO Dec 16, 2019 13:06 ~ ~ ~<Created by RHONA BROOKE DO> ~<Electronically signed by Erik BROOKE DO> 12/16/19 1306 ~ ~ Clinical Note Note Date & Note Facility Type Note NAME: RICKY SIEGEL ~MED REC#: [id number] ~ACCOUNT#: PENDING LOCATION [facility] [id number] ~PHYSICIAN: RHONA BROOKE DO ~Standar d Progress () Note ~Progress Notes/Assess Plan ~Date Seen by a Provider: Dec 18, 2019 ~Time Seen by a Provider: 08:35 ~P rogress/Assessment Plan ~Patient reports doing ok this AM. Had some pain requiring toradol overnight. Had BM x 3 this AM. ~Reports ambulating without pain. ~ ~ ~Abd: soft/ mildly distended/ no rebo und/ BS + x 4 ~ ~Laboratory Tests ~ ~ ~Test ~ 12/18/19 ~03:37 Range/ Units ~ ~ ~White Blood Count ~ 16.0 H ~ 4.3-11.0 ~10 3/uL ~ ~R ed Blood Count ~ 3.20 L ~ 4.35-5.85 ~10 6/uL ~ ~Hemoglobin 10.5 L 11.5-16.0 G/DL ~ ~Hematocrit 32 L 35-52 % ~ ~Mean Corpus cular Volume 99 80-99 FL ~ ~Mean Corpuscular Hemoglobin 33 25-34 P G ~ ~Mean Corpuscular Hemoglobin ~Concent 33 ~ 32-36 G/DL ~ ~ ~Red Cell Distribution Width 13.5 10.0-14.5 % ~ ~Platelet Coun t ~ 361 ~ 130-400 ~10 3/uL ~ ~Mean Platelet Volume 9.5 7.4-10.4 FL ~ ~Sodium Level 143 135-145 MMOL/L ~ ~Potassium Level 3.1 L 3.6-5.0 MMOL/L ~ ~Chloride Level 111 H 98-107 MMOL/L ~ ~Carbon Gerardo xide Level 18 L 21-32 MMOL/L ~ ~Anion Gap 14 5-14 MMOL/L ~ ~B lood Urea Nitrogen 16 7-18 MG/DL ~ ~Creatinine ~ 0.65 ~ 0.60-1.30 ~MG/DL ~ ~Estimat Glomerular Filtration ~Rate > 60 ~ ~ ~ ~BUN/Creatinine Ratio 25 ~ ~Glucose Level 70 70-105 MG/DL ~ ~Calci um Level 8.3 L 8.5-10.1 MG/DL ~ ~Magnesium Level 1.8 1.6-2.4 MG /DL ~ ~ ~ ~Diagnosis: ~Acute diverticulits ~LLQ pain ~ ~P: ~R ecommendations per General Surgery ~Starting sips of CLD and Antib iotics ~Plan for DC once improvement in pain and afebrile 24 hrs . ~ ~ ~ ~RHONA BROOKE DO Dec 18, 2019 08:42 ~ ~ ~<Created by RHONA BROOKE DO> ~<Electronically signed by RHONA VIRGEN DO> 12/18/19 0842 ~ ~ Clinical Note Note Date & Note Facility Type Note NAME: [facility] ~MED REC#: [id number] ~ACCOUNT#: PENDING LOCATION [facility] [id number] ~CARE PROVIDER: RHONA BROOKE DO ~Nely painting ([id number]) Progress Note ~Progress Notes/Assess Pl an ~Date Seen by a Provider: Dec 21, 2019 ~Time Seen by a Provider: 12:20 ~Progress/Assessment Plan ~Patient repo rts doing ok this AM. Has some distention. BM still not regular a nd elevation in ~platelets has prompted Dr. Tellez to order CT. ~ ~ ~Abd: soft/ mildly distended/ no rebound/ BS hypoactive ~ ~ ~ ~ ~Diagnosis: ~Left sided pelvic abscess- discussed finding s with Radiology(Dr. Mackay) and Dr. Tellez. ~Questionable involveme nt of adnexa such as a TOA vs, diverticular abscess. US findings d o not help ~delineate this either. Due to worsening size of this a alicia, discussed with patient proceeding with ~diagnostic laparoscopy . We discussed the possibilities of LSO, vs, Hysterectomy w/BSO, vs bowel ~involvement requiring resection and po stoperative colostomy, with need for potential subsequent ~procedur e after healing. She understands the nature of this procedur e and is will to move forward ~given the delay in improvement . ~ ~P: ~Recommendations per General Surgery ~Diagnostic Laparos copy today- patient NPO ~ ~ ~ ~RHONA BROOKE DO Dec 21, 2019 1:4 5 pm ~ ~ ~<Created by RHONA BROOKE DO> ~<Electronically s igned by RHONA BROOKE DO> 12/21/19 1345 ~ ~ Advance Directives Directive Response Recor ded Date/Time Advance Directives No 12:42pm Health Care Power of Etiologist No 06/02/17 12:42pm Organ Donor No 04/28/17 9:01pm Resuscitation Status Full Code 06/02/17 12:42pm Directive Response Recor ded Date/Time Advance Directives No 9:00am Health Care Power of Etiologist No 06/09/17 9:00am Organ Donor No 06/09/17 9:00am Resuscitation Status Full Code 06/09/17 9:00am Directive Response Recor ded Date/Time Advance Directives No 9:01pm Organ Donor No 04/28/17 9:01pm Resuscitation Status Full Code 04/28/17 9:01pm Discharge Instructions No hospital discharge instruction information available.No hospital discharge instruction information available.No hospital discharge instruction information available. Additional Source Comments This clinical document has been generated using [employer] software that has been certified by the Office of the National Coordinator for Health Information Technology (ONC 15.99.04.3023.Diam.[id number]) and the National Committee for [employer] (NCQA, as an eMeasure certified technology). FOR [...] BASED ON T HE PRIMARY CLINICAL RECORDS. [email or web address] provides no warranty or guara ntee of the accuracy or completeness of information in this document.The followi ng information is based on time limited clinical information UNRECOGNIZED CONTENT PROVIDED BELOW FOR UNRECOGNIZED SECTION REASON FOR VISIT Blood pressure-elevated, started last month
--- OUTSIDE RECORDS SUMMARY | 2019-12-23 10:38 | XMS REPORT | Continuity of Care Document ---
Author Organization Unknown Address Unknown Phone Unavailable Allergies Active Description Code Type Severity Reaction Onset Reported/Identified Relationship to Patient Clinical Status Yes No Known Drug Allergies [id number] Drug Allergy Unknown N/A 11/22/2019 Medications There [...] 06/09/2017 STEPHANY TELLEZ DO Ot Z79.899 OTHER PRISON (CURRENT) DRUG THERAPY 09/24/2017 ANSON MAXWELL, GLADIS [...] M76. 61 ACHILLES TENDINITIS, RIGHT LEG 11/28/2019 FENECH DO, RHONA S Ot F17.210 NICOTINE DEPENDENCE, CIGARETTES, UNCOMPL 11/28/2019 FENECH DO, RHONA S Ot G89.29 OTHER CHRONIC PAIN 11/28/2019 FENECH DO, RHONA S Ot I1 0 ESSENTIAL (PRIMARY) HYPERTENSION 11/28/2019 FENECH DO, RHONA S Ot K21.9 GASTRO-ESOPHAGEAL REFLUX DISEASE WITHOUT 11/28/2019 FENECH DO, RHONA Lemus Ot M06.9 RHEUMATOID ARTHRITIS, UNSPECIFIED 11/28/2019 FENECH DO, RHONA Lemus Ot M54.9 DORSALGIA, UNSPECIFIED 11/28/2019 FENECH DO, RHONA S Ot N95.0 POSTMENOPAUSAL BLEEDING 11/28/2019 FENECH DO, RHONA S Ot R10.9 UNSPECIFIED ABDOMINAL PAIN 11/28/2019 FENECH DO, RHONA Lemus Ot Z30.432 ENCOUNTER FOR REMOVAL OF INTRAUTERINE CO 11/28/2019 [facility] DO, RHONA S Ot Z79.891 PRISON (CURRENT) USE OF OPIATE ANALGE 11/28/2019 FENECH DO, RHONA S Ot Z79.899 OTHER PRISON (CURRENT) DRUG THERAPY 11/28/2019 FENECH DO, RHONA S Ot Z82.3 FAMILY HISTORY OF STROKE 11/28/2019 FENECH DO, RHONA Lemus Ot Z82.5 FAMILY HISTORY OF ASTHMA AND OTH CHRONIC 12/03/2019 FENECH DO, RHONA S Ot F17.210 NICOTINE DEPENDENCE, CIGARETTES, UNCOMPL 12/03/2019 FENECH DO, RHONA S Ot G89.29 OTHER CHRONIC PAIN 12/03/2019 FENECH DO, RHONA S Ot I1 0 ESSENTIAL (PRIMARY) HYPERTENSION 12/03/2019 FENECH DO, RHONA S Ot K21.9 GASTRO-ESOPHAGEAL REFLUX DISEASE WITHOUT 12/03/2019 FENECH DO, RHNOA S Ot M06.9 RHEUMATOID ARTHRITIS, UNSPECIFIED 12/03/2019 FENECH DO, RHONA S Ot M54.9 DORSALGIA, UNSPECIFIED 12/03/2019 RHONA BROOKE DO Ot N95.0 POSTMENOPAUSAL BLEEDING 12/03/2019 RHONA BROOKE DO Ot Z30.432 ENCOUNTER FOR REMOVAL OF INTRAUTERINE CO 12/03/2019 RHONA BROOKE DO Ot Z79.891 PRISON (CURRENT) USE OF OPIATE ANALGE 12/03/2019 RHONA BROOKE DO Ot 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 Results Test [...] Blood erythrocyte morphology finding identification NORMAL NRG Comprehensive metabolic panel - 04/28/17 16:48 Serum [...] of total Hgb <5.7 Coronavirus SARS-CoV-2 SO 2019 - 0 08:00 Coronavirus Ab [Units/volume] in [...] pa kathia - 11/28/19 09:00 WRISTBAND NUMBER [id number] NRG ABO+Rh group OP NRG Blood group [...] 10:00 Bacteria identification in wound by culture [id number] NRG QUANTITY OF GROWTH Rare NRG SUSCEPTIBILITY NO FURTHER TESTING NRG MRSA SCREEN SEE COMMENT [facility] Comprehensive metabolic panel - 12/15/19 12:43 Serum [...] 0.0-0.1 Manual absolute plasma cell count - 02/25 12:43 Blood monocytes/100 leukocytes 2 % NRG Manual blood segmented neutrophils/100 leukocytes 82 % NRG Blood band neutrophils/100 leukocytes 5 % NRG Manual blood lymphocytes/100 leukocytes 10 % NRG Manual eosinophils/100 leukocytes in nose 1 % NRG Manual blood basophils/100 leukocytes 0 % NRG Blood erythrocyte morphology finding identification NORMAL NRG Bacterial blood culture - 12/15/19 12:43 Bacterial blood culture NG NRG Bacterial blood culture - 12/15/19 12:43 Bacterial blood culture NG NRG Complete blood count (CBC) with automate d white blood cell (WBC) differential - 12/16/19 05:02 Blood leukocytes automated count (number/volume) 22.3 10*3/uL 4.3-11.0 Blood erythrocytes automated count (number/volume) 3.45 10*6/uL 4.35-5.85 Venous blood hemoglobin measurement (mass/volume) 11.6 g/dL 11.5-16.0 Blood hematocrit (volume fraction) 34 % 35-52 Automated erythrocyte mean corpuscular volume 98 [ foz_us] 80-99 Automated erythrocyte mean corpuscular h emoglobin (mass per erythrocyte) 34 pg 25-34 Automated erythrocyte mean corpuscular h emoglobin concentration measurement (mass/volume) 34 g/dL 32-36 Automated erythrocyte distribution width ratio 13. 5 % 10.0- 14.5 Automated blood platelet count (count/volume) 338 10*3/uL 130-400 Automated blood platelet mean volume measurement 9.8 [foz_us] 7.4-10.4 Automated blood neutrophils/100 leukocytes 88 % 42-75 Automated blood lymphocytes/100 leukocytes 6 % 12-44 Blood monocytes/100 leukocytes 6 % 0-12 Automated blood eosinophils/100 leukocytes 1 % 0-10 Automated blood basophils/100 leukocytes 0 % 0-10 Blood neutrophils automated count (number/volume) 19.6 10*3 1.8-7.8 Blood lymphocytes automated count (number/volume) 1.3 10*3 1.0-4.0 Blood monocytes automated count (number/volume) 1. 3 10*3 0.0-1.0 Automated eosinophil count 0.1 10*3/uL 0 .0-0.3 Automated blood basophil count (count/volume) 0.0 10*3/uL 0.0-0.1 Capillary blood glucose measurement by g lucometer (mass/volume) - 12/16/19 15:30 Capillary blood glucose measurement by glucometer (mas s/volume) 115 mg/dL 70-110 Automated blood complete blood count (he mogram) panel - 12/17/19 04:51 Blood leukocytes automated count (number/volume) 15.2 10*3/uL 4.3-11.0 Blood erythrocytes automated count (number/volume) 3.23 10*6/uL 4.35-5.85 Venous blood hemoglobin measurement (mass/volume) 10.4 g/dL 11.5-16.0 Blood hematocrit (volume fraction) 31 % 35-52 Automated erythrocyte mean corpuscular volume 97 [ foz_us] 80-99 Automated erythrocyte mean corpuscular h emoglobin (mass per erythrocyte) 32 pg 25-34 Automated erythrocyte mean corpuscular h emoglobin concentration measurement (mass/volume) 33 g/dL 32-36 Automated erythrocyte distribution width ratio 19. 3 % 10.0- 14.5 Automated blood platelet count (count/volume) 279 10*3/uL 130-400 Automated blood platelet mean volume measurement 10.2 [foz_us] 7.4-10.4 Comprehensive metabolic panel - 12/17/19 04:51 Serum or plasma sodium measurement (moles/volume) 142 mmol/L 135-145 Serum or plasma potassium measurement (moles/volume) 3.4 mmol/L 3.6-5.0 Serum or plasma chloride measurement (moles/volume) 109 mmol/L 98-107 Carbon dioxide 20 mmol/L 21-32 Serum or plasma anion gap determination (moles/volume) 13 mmol/L 5-14 Serum or plasma urea nitrogen measurement (mass/volume ) 15 mg/dL 7-18 Serum or plasma creatinine measurement (mass/volume) 0.73 mg/dL 0.60-1.30 Serum or plasma urea nitrogen/creatinine mass ratio 21 NRG Serum or plasma creatinine measurement w ith calculation of estimated glomerular filtration rate > NRG Serum or plasma glucose measurement (mass/volume) 84 mg/dL 70-105 Serum or plasma calcium measurement (mass/volume) 8.5 mg/dL 8.5-10.1 Serum or plasma total bilirubin measurement (mass/volu me) 0.5 mg/dL 0.1-1.0 Serum or plasma alkaline phosphatase aleena surement (enzymatic activity/volume) 98 U/L 40-136 Serum or plasma aspartate aminotransfera se measurement (enzymatic activity/volume) 18 U/L 5-34 Serum or plasma alanine aminotransferase measurement (enzymatic activity/volume) 22 U/L 0-55 Serum or plasma protein measurement (mass/volume) 5.6 g/dL 6.4-8.2 Serum or plasma albumin measurement (mass/volume) 3.0 g/dL 3.2-4.5 CALCIUM CORRECTED 9.3 mg/dL 8.5-10.1 Magnesium - 12/17/19 04:51 Magnesium 1.7 mg/dL 1.6-2.4 Automated blood complete blood count (he mogram) panel - 12/18/19 03:37 Blood leukocytes automated count (number/volume) 16.0 10*3/uL 4.3-11.0 Blood erythrocytes automated count (number/volume) 3.20 10*6/uL 4.35-5.85 Venous blood hemoglobin measurement (mass/volume) 10.5 g/dL 11.5-16.0 Blood hematocrit (volume fraction) 32 % 35-52 Automated erythrocyte mean corpuscular volume 99 [ foz_us] 80-99 Automated erythrocyte mean corpuscular h emoglobin (mass per erythrocyte) 33 pg 25-34 Automated erythrocyte mean corpuscular h emoglobin concentration measurement (mass/volume) 33 g/dL 32-36 Automated erythrocyte distribution width ratio 13. 5 % 10.0- 14.5 Automated blood platelet count (count/volume) 361 10*3/uL 130-400 Automated blood platelet mean volume measurement 9.5 [foz_us] 7.4-10.4 Whole blood basic metabolic panel - 12/06 07/28 03:37 Serum or plasma sodium measurement (moles/volume) 143 mmol/L 135-145 Serum or plasma potassium measurement (moles/volume) 3.1 mmol/L 3.6-5.0 Serum or plasma chloride measurement (moles/volume) 111 mmol/L 98-107 Carbon dioxide 18 mmol/L 21-32 Serum or plasma anion gap determination (moles/volume) 14 mmol/L 5-14 Serum or plasma urea nitrogen measurement (mass/volume ) 16 mg/dL 7-18 Serum or plasma creatinine measurement (mass/volume) 0.65 mg/dL 0.60-1.30 Serum or plasma urea nitrogen/creatinine mass ratio 25 NRG Serum or plasma creatinine measurement w ith calculation of estimated glomerular filtration rate > NRG Serum or plasma glucose measurement (mass/volume) 70 mg/dL 70-105 Serum or plasma calcium measurement (mass/volume) 8.3 mg/dL 8.5-10.1 Magnesium - 12/18/19 03:37 Magnesium 1.8 mg/dL 1.6-2.4 Automated blood complete blood count (he mogram) panel - 12/19/19 05:51 Blood leukocytes automated count (number/volume) 13.6 10*3/uL 4.3-11.0 Blood erythrocytes automated count (number/volume) 3.31 10*6/uL 4.35-5.85 Venous blood hemoglobin measurement (mass/volume) 10.9 g/dL 11.5-16.0 Blood hematocrit (volume fraction) 33 % 35-52 Automated erythrocyte mean corpuscular volume 99 [ foz_us] 80-99 Automated erythrocyte mean corpuscular h emoglobin (mass per erythrocyte) 33 pg 25-34 Automated erythrocyte mean corpuscular h emoglobin concentration measurement (mass/volume) 33 g/dL 32-36 Automated erythrocyte distribution width ratio 13. 7 % 10.0- 14.5 Automated blood platelet count (count/volume) 407 10*3/uL 130-400 Automated blood platelet mean volume measurement 9.0 [foz_us] 7.4-10.4 Whole blood basic metabolic panel - 12/06 08/25 05:51 Serum or plasma sodium measurement (moles/volume) 141 mmol/L 135-145 Serum or plasma potassium measurement (moles/volume) 3.7 mmol/L 3.6-5.0 Serum or plasma chloride measurement (moles/volume) 108 mmol/L 98-107 Carbon dioxide 18 mmol/L 21-32 Serum or plasma anion gap determination (moles/volume) 15 mmol/L 5-14 Serum or plasma urea nitrogen measurement (mass/volume ) 10 mg/dL 7-18 Serum or plasma creatinine measurement (mass/volume) 0.63 mg/dL 0.60-1.30 Serum or plasma urea nitrogen/creatinine mass ratio 16 NRG Serum or plasma creatinine measurement w ith calculation of estimated glomerular filtration rate > NRG Serum or plasma glucose measurement (mass/volume) 75 mg/dL 70-105 Serum or plasma calcium measurement (mass/volume) 8.2 mg/dL 8.5-10.1 Magnesium - 12/19/19 05:51 Magnesium 1.8 mg/dL 1.6-2.4 Automated blood complete blood count (he mogram) panel - 12/20/19 05:21 Blood leukocytes automated count (number/volume) 12.0 10*3/uL 4.3-11.0 Blood erythrocytes automated count (number/volume) 3.32 10*6/uL 4.35-5.85 Venous blood hemoglobin measurement (mass/volume) 10.9 g/dL 11.5-16.0 Blood hematocrit (volume fraction) 33 % 35-52 Automated erythrocyte mean corpuscular volume 99 [ foz_us] 80-99 Automated erythrocyte mean corpuscular h emoglobin (mass per erythrocyte) 33 pg 25-34 Automated erythrocyte mean corpuscular h emoglobin concentration measurement (mass/volume) 33 g/dL 32-36 Automated erythrocyte distribution width ratio 13. 4 % 10.0- 14.5 Automated blood platelet count (count/volume) 456 10*3/uL 130-400 Automated blood platelet mean volume measurement 9.5 [foz_us] 7.4-10.4 Whole blood basic metabolic panel - 12/06 09/25 05:21 Serum or plasma sodium measurement (moles/volume) 140 mmol/L 135-145 Serum or plasma potassium measurement (moles/volume) 3.2 mmol/L 3.6-5.0 Serum or plasma chloride measurement (moles/volume) 107 mmol/L 98-107 Carbon dioxide 21 mmol/L 21-32 Serum or plasma anion gap determination (moles/volume) 12 mmol/L 5-14 Serum or plasma urea nitrogen measurement (mass/volume ) 7 mg/dL 7-18 Serum or plasma creatinine measurement (mass/volume) 0.58 mg/dL 0.60-1.30 Serum or plasma urea nitrogen/creatinine mass ratio 12 NRG Serum or plasma creatinine measurement w ith calculation of estimated glomerular filtration rate > NRG Serum or plasma glucose measurement (mass/volume) 88 mg/dL 70-105 Serum or plasma calcium measurement (mass/volume) 8.1 mg/dL 8.5-10.1 Automated blood complete blood count (he mogram) panel - 12/21/19 05:05 Blood leukocytes automated count (number/volume) 10.6 10*3/uL 4.3-11.0 Blood erythrocytes automated count (number/volume) 3.35 10*6/uL 4.35-5.85 Venous blood hemoglobin measurement (mass/volume) 10.9 g/dL 11.5-16.0 Blood hematocrit (volume fraction) 33 % 35-52 Automated erythrocyte mean corpuscular volume 99 [ foz_us] 80-99 Automated erythrocyte mean corpuscular h emoglobin (mass per erythrocyte) 33 pg 25-34 Automated erythrocyte mean corpuscular h emoglobin concentration measurement (mass/volume) 33 g/dL 32-36 Automated erythrocyte distribution width ratio 13. 5 % 10.0- 14.5 Automated blood platelet count (count/volume) 505 10*3/uL 130-400 Automated blood platelet mean volume measurement 9.1 [foz_us] 7.4-10.4 Whole blood basic metabolic panel - 12/06 10/25 05:05 Serum or plasma sodium measurement (moles/volume) 140 mmol/L 135-145 Serum or plasma potassium measurement (moles/volume) 3.5 mmol/L 3.6-5.0 Serum or plasma chloride measurement (moles/volume) 105 mmol/L 98-107 Carbon dioxide 24 mmol/L 21-32 Serum or plasma anion gap determination (moles/volume) 11 mmol/L 5-14 Serum or plasma urea nitrogen measurement (mass/volume ) 3 mg/dL 7-18 Serum or plasma creatinine measurement (mass/volume) 0.60 mg/dL 0.60-1.30 Serum or plasma urea nitrogen/creatinine mass ratio 5 NRG Serum or plasma creatinine measurement w ith calculation of estimated glomerular filtration rate > NRG Serum or plasma glucose measurement (mass/volume) 96 mg/dL 70-105 Serum or plasma calcium measurement (mass/volume) 8.1 mg/dL 8.5-10.1 Complete blood count (CBC) with automate d white blood cell (WBC) differential - 12/22/19 06:08 Blood leukocytes automated count (number/volume) 24.5 10*3/uL 4.3-11.0 Blood erythrocytes automated count (number/volume) 3.58 10*6/uL 4.35-5.85 Venous blood hemoglobin measurement (mass/volume) 11.8 g/dL 11.5-16.0 Blood hematocrit (volume fraction) 35 % 35-52 Automated erythrocyte mean corpuscular volume 98 [ foz_us] 80-99 Automated erythrocyte mean corpuscular h emoglobin (mass per erythrocyte) 33 pg 25-34 Automated erythrocyte mean corpuscular h emoglobin concentration measurement (mass/volume) 34 g/dL 32-36 Automated erythrocyte distribution width ratio 13. 5 % 10.0- 14.5 Automated blood platelet count (count/volume) 551 10*3/uL 130-400 Automated blood platelet mean volume measurement 9.2 [foz_us] 7.4-10.4 Automated blood neutrophils/100 leukocytes 92 % 42-75 Automated blood lymphocytes/100 leukocytes 3 % 12-44 Blood monocytes/100 leukocytes 4 % 0-12 Automated blood eosinophils/100 leukocytes 0 % 0-10 Automated blood basophils/100 leukocytes 0 % 0-10 Blood neutrophils automated count (number/volume) 22.6 10*3 1.8-7.8 Blood lymphocytes automated count (number/volume) 0.8 10*3 1.0-4.0 Blood monocytes automated count (number/volume) 1. 0 10*3 0.0-1.0 Automated eosinophil count 0.0 10*3/uL 0 .0-0.3 Automated blood basophil count (count/volume) 0.0 10*3/uL 0.0-0.1 Whole blood basic metabolic panel - 12/06 11/25 06:08 Serum or plasma sodium measurement (moles/volume) 140 mmol/L 135-145 Serum or plasma potassium measurement (moles/volume) 3.4 mmol/L 3.6-5.0 Serum or plasma chloride measurement (moles/volume) 103 mmol/L 98-107 Carbon dioxide 26 mmol/L 21-32 Serum or plasma anion gap determination (moles/volume) 11 mmol/L 5-14 Serum or plasma urea nitrogen measurement (mass/volume ) 4 mg/dL 7-18 Serum or plasma creatinine measurement (mass/volume) 0.60 mg/dL 0.60-1.30 Serum or plasma urea nitrogen/creatinine mass ratio 7 NRG Serum or plasma creatinine measurement w ith calculation of estimated glomerular filtration rate > NRG Serum or plasma glucose measurement (mass/volume) 143 mg/dL 70-105 Serum or plasma calcium measurement (mass/volume) 7.9 mg/dL 8.5-10.1 Manual absolute plasma cell count - 12/06 11/25 06:08 Blood monocytes/100 leukocytes 4 % NRG Manual blood segmented neutrophils/100 leukocytes 90 % NRG Blood band neutrophils/100 leukocytes 2 % NRG Manual blood lymphocytes/100 leukocytes 4 % NRG Automated blood complete blood count (he mogram) panel - 12/23/19 04:55 Blood leukocytes automated count (number/volume) 16.8 10*3/uL 4.3-11.0 Blood erythrocytes automated count (number/volume) 3.08 10*6/uL 4.35-5.85 Venous blood hemoglobin measurement (mass/volume) 10.0 g/dL 11.5-16.0 Blood hematocrit (volume fraction) 31 % 35-52 Automated erythrocyte mean corpuscular volume 99 [ foz_us] 80-99 Automated erythrocyte mean corpuscular h emoglobin (mass per erythrocyte) 32 pg 25-34 Automated erythrocyte mean corpuscular h emoglobin concentration measurement (mass/volume) 33 g/dL 32-36 Automated erythrocyte distribution width ratio 14. 1 % 10.0- 14.5 Automated blood platelet count (count/volume) 486 10*3/uL 130-400 Automated blood platelet mean volume measurement 9.3 [foz_us] 7.4-10.4 Whole blood basic metabolic panel - 12/06 12/25 04:55 Serum or plasma sodium measurement (moles/volume) 140 mmol/L 135-145 Serum or plasma potassium measurement (moles/volume) 3.4 mmol/L 3.6-5.0 Serum or plasma chloride measurement (moles/volume) 104 mmol/L 98-107 Carbon dioxide 26 mmol/L 21-32 Serum or plasma anion gap determination (moles/volume) 10 mmol/L 5-14 Serum or plasma urea nitrogen measurement (mass/volume ) 5 mg/dL 7-18 Serum or plasma creatinine measurement (mass/volume) 0.63 mg/dL 0.60-1.30 Serum or plasma urea nitrogen/creatinine mass ratio 8 NRG Serum or plasma creatinine measurement w ith calculation of estimated glomerular filtration rate > NRG Serum or plasma glucose measurement (mass/volume) 114 mg/dL 70-105 Serum or plasma calcium measurement (mass/volume) 7.7 mg/dL 8.5-10.1 Magnesium - 12/23/19 04:55 Magnesium 1.5 mg/dL 1.6-2.4 Encounters ACCT No. Visit Date/Time Discharge Status Pt. Type Provider Facility Loc./Unit Complaint [id number] 10/19/2019 15:00:00 10/19/2019 23:59:5 9 CLS Outpatient ALEJANDRO CERON [facility] [id number] 08/31/2019 09:20:00 Document Registration [id number] 12/15/2019 11:59:00 23:59:59 CLS Outpatient RHONA BROOKE DO [facility] LAB ACUTE ABDOMINAL PAIN [id number] 12/15/2019 12:18:00 12:18:00 CAN Preadmit RHONA BROOKE DO [facility] LAB ACUTE ABD PAIN [id number] 11/28/2019 08:29:00 12:43:00 DIS Outpatient RHONA BROOKE DO [facility] SDC RETAINED IUD [id number] 11/24/2019 05:30:00 14:43:00 DIS Outpatient RHONA BROOKE DO [facility] PREOP RETAINED IUD [id number] 09/08/2017 10:01:00 018 23:59:59 CLS Outpatient GLADIS GRIGGS MD [facility] RAD RIGHT HEEL PAIN [id number] 06/09/2017 07:52:00 018 10:05:00 DIS Outpatient STEPHANY TELLEZ DO [facility] ENDO ABNORMAL CT SCAN/GERD/B LOOD IN STOOLS [id number] 06/02/2017 05:42:00 017 12:49:00 DIS Outpatient STEPHANY TELLEZ DO [facility] PREOP COLONOSCOPY/EGD [id number] 04/28/2017 20:10:00 017 15:45:00 DIS Inpatient GLADIS GRIGGS MD [facility] 4TH COLITIS;LEUKOCYTOSIS,HE MATOCHEZIA [id number] 12/19/2015 08:22:00 016 23:59:59 CLS Outpatient GLADIS GRIGGS MD [facility] RAD SCREENING [id number] 07/27/2015 15:20:00 016 23:59:59 CLS Outpatient ETELVINA DELGADO DO [facility] RAD RT KNEE MENISCU S TEAR, PRIMARY OA [id number] 03/30/2015 16:32:00 015 23:59:59 CLS Outpatient JANES CAMERON [facility] QUICK [id number] 03/30/2014 16:48:00 014 23:59:59 CLS Outpatient HERRERA STERLING DC [facility] RAD NECK AND RT UPPER BACK PAIN [id number] 10/05/2012 08:43:00 013 23:59:59 CLS Outpatient [id number] 12/17/2019 09:04:[address] Inpatient RHONA BROOKE DO [facility] 4TH P/O ELAVATED WHITE COUNT, LE FT PELVIC ABSCESS [id number] 07/27/2015 15:19:00 Document Registration [id number] 07/27/2015 15:19:00 Document Registration [id number] 08/18/2012 20:55:00 Document Registration [id number] 02/03/2011 15:17:00 Document Registration [id number] 07/30/2010 14:26:00 Document Registration
[2019-12-23] MEDS: HYDROCHLOROTHIAZIDE 25 MG (HCTZ) TAB PO SCH (11:17)
[2019-12-23] MEDS: lisINopril 20 MG (PRINIVIL) TABLET PO SCH (11:18)
--- NOTE | 2019-12-23 11:20 | NUR ---
NOTE THAT PT HAD AND WAS CHARTED ON ACUTE ADMISSION THE LISINOPRIL AND THE HCTZ --
[2019-12-23] MEDS: NS IV 1000 ML 1,000 ML IV SCH ×3 (11:22→23:10)
--- NOTE | 2019-12-23 11:29 | NUR ---
Admission Drug Regimen Review: Date: 12/23/19 Time: 1129 Review Completed, No Issues found
[2019-12-23] MEDS: PIPERACILLIN/TAZO 4.5 GM/NS 100 ML IV SCH ×4 (12:16→17:39)
--- NOTE | 2019-12-23 13:14 | NUR ---
RD ASSESSMENT PMHx: HTN; hypercholesterolemia; GERD PT INTERACTION: Pt was awake and pleasant during nutrition assessment. Pt states current appetite is not good, and has been this way x1w. Note avg PO intake 44% x3d, per chart review. Pt states following a regular diet at home, and has no issues with chewing/swallowing food. Pt states recent issues with nausea, but not vomiting. Note pt has colostomy, and pt states output is "so far, so good." Note last BM 12/20 and pt not currently on bowel regimen per chart review. Pt states no recent wt changes. Note recent 6# wt gain x2w, per chart review. ABNORMAL NUTRITION-RELATED LAB VALUES LOW: K 3.4; BUN 5; Ca 7.5; Mg 1.5 HIGH: glu 114 Est. kcal needs: 1575 kcal | 20 kcal/kg Est. Pro needs: 63 g Pro | 0.8 g Pro/kg PES STATEMENT: Inadequate oral intake (NI-2.1) related to loss of appetite | nausea as evidenced by pt interview | avg PO intake 44% x3d INTERVENTION: Continue with current diet order of Clear Liquid diet. Would recommend diet advancement when medically able and as tolerated. Add Ensure Clear (vary) to meals TID, for increased kcal intake. Provides 250 kcal and 8 g Pro per serving. Will continue to follow and reassess as pt needs, intake, and status change. MONITOR/EVALUATE: PO Intake; Plan of Care; Hydration Status; Weight Status; Lab Values Teresa Dinero, MS, RD, LD
--- NOTE | 2019-12-23 14:59 | Progress Note - Surgery ---
Subjective Date Seen by a Provider: Dec 23, 2019 Time Seen by a Provider: 09:23 Subjective/Events-last exam WBC coming down. pain controlled. Using IS some. Denies n/v fever sweats chills shortness of breath or chest pain. SCDs Lovenox for dvt prophylaxis Taking some clears. No stool output from colostomy. Objective Exam Vital Signs Date Time Temp Pulse Resp B/P (MAP) Pulse Ox O2 Delivery O2 Flow Rate FiO2 12/23/19 14:09 92 Nasal Cannula 2.00 12/23/19 10:21 93 Nasal Cannula 2.00 Capillary Refill : General Appearance: No Apparent Distress, WD/WN HEENT: PERRL/EOMI, Normal ENT Inspection Neck: Full Range of Motion, Non Tender Respiratory: Chest Non Tender, No Accessory Muscle Use, No Respiratory Distress Cardiovascular: Regular Rate, Rhythm, Normal Peripheral Pulses Gastrointestinal: tenderness (incisional, slight serous fluid, AMIE serosang, Ostomy pink slightly edematous no stool output) Neurologic/Psychiatric: Alert, Oriented x3, No Motor/Sensory Deficits, Normal 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, 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 Norm as Tested Skin: Normal Color, Warm/Dry Lymphatic: No Adenopathy Assessment/Plan Assessment/Plan Assessment/Plan LLQ ABDOMINAL PAIN ACUTE DIVERTICULITIS LEUKOCYTOSIS HYPOKALEMIA HYPOMAGNESEMIA S/P laparoscopy with lysis of adhesions to exploration and liberation of left pelvic abscess with sigmoid resection end colostomy Johnson for acurrate I/O's once make sure adequate output will dc Continue antibiotics swtiched to Zosyn Pain control Lovenox scd's for dvt prophylaxis ambulate Incentive spirometer Consult medicine await bowel function and advance diet PT replace K replace Mag Mat protocol Clinical Quality Measures DVT/VTE Risk/Contraindication: Risk Factor Score Per Nursin STEPHANY TELLEZ DO Dec 23, 2019 14:59
[2019-12-23] MEDS ORDERED: POTASSIUM CL 10MEQ/50ML IVPB 50 ML IV NR (15:00)
[2019-12-23] MEDS ORDERED: MAGNESIUM 1 GM/100 ML IVPB 100 ML IV NR (15:15)
[2019-12-23 17:15] VITALS: BP 121/79
[2019-12-23] MEDS: metroNIDAZOLE 500MG/100ML IVPB 100 ML IV SCH (18:11)
[2019-12-23] MEDS: ENOXAPARIN 40 MG/0.4 ML (LOVENOX) SYR SC SCH (20:42)
[2019-12-24] MEDS: PIPERACILLIN/TAZO 4.5 GM/NS 100 ML IV SCH ×6 (01:58→17:30)
[2019-12-24] MEDS: metroNIDAZOLE 500MG/100ML IVPB 100 ML IV SCH ×3 (03:10→17:31)
[2019-12-24] MEDS: RT-ALBUTEROL SULF 2.5 MG/3 ML PRE-MIX VIAL INH SCH ×4 (03:11→20:44)
[2019-12-24 04:50] VITALS: BP 113/73
[2019-12-24] MEDS: HYDROcodone/APAP 5 MG/325 MG (LORTAB) TAB PO PRN ×3 (05:28→19:46)
[2019-12-24 05:54] LABS: HEMOGLOBIN 10.1 G/DL (11.5-16.0); MEAN PLATELET VOLUME 9.4 FL (7.4-10.4); RED CELL DISTRIBUTION WIDTH 14.3 % (10.0-14.5); WHITE BLOOD COUNT 16.5 10^3/uL (4.3-11.0)
[2019-12-24 06:13] LABS: CHLORIDE 102 MMOL/L (98-107); POTASSIUM 3.3 MMOL/L (3.6-5.0); SODIUM 139 MMOL/L (135-145)
[2019-12-24 06:14] LABS: CALCIUM 8.2 MG/DL (8.5-10.1)
[2019-12-24 06:15] LABS: GLUCOSE 100 MG/DL (70-105)
[2019-12-24 06:16] LABS: CARBON DIOXIDE 27 MMOL/L (21-32)
[2019-12-24 06:18] LABS: CREATININE SERUM 0.62 MG/DL (0.60-1.30); GFR ESTIMATED > 60
[2019-12-24 06:19] LABS: BUN/CREATININE RATIO 8
[2019-12-24 06:21] LABS: MAGNESIUM 1.7 MG/DL (1.6-2.4)
--- NOTE | 2019-12-24 07:41 | Progress Note ---
Subjective Date Seen by a Provider: Dec 24, 2019 Time Seen by a Provider: 07:05 Subjective/Events-last exam Patient does not voice any current complaints today. She reports she feels better today than yesterday. She reports slight distention of the abdomen. Objective Exam Vital Signs Date Time Temp Pulse Resp B/P (MAP) Pulse Ox O2 Delivery O2 Flow Rate FiO2 12/24/19 04:50 37.2 98 16 113/73 (86) 95 Nasal Cannula 2.00 12/24/19 03:12 94 Nasal Cannula 2.00 12/23/19 20:45 Nasal Cannula 2.00 12/23/19 20:16 94 Nasal Cannula 3.00 12/23/19 17:45 37.3 12/23/19 17:15 37.3 91 20 121/79 (93) 100 Nasal Cannula 2.00 12/23/19 14:09 92 Nasal Cannula 2.00 12/23/19 10:21 93 Nasal Cannula 2.00 I & O 12/24/19 07:00 Intake Total 2260 ml Output Total 1945 ml Balance 315 ml Capillary Refill : Less Than 3 Seconds General Appearance: No Apparent Distress Neck: Non Tender, Supple Respiratory: Lungs Clear Cardiovascular: Regular Rate, Rhythm Gastrointestinal: other (Slight distention with no bowel sounds appreciated) Results Lab Laboratory Tests 12/24/19 05:25: White Blood Count 16.5H, Red Blood Count 3.07L, Hemoglobin 10.1L, Hematocrit 31L , Mean Corpuscular Volume 100H, Mean Corpuscular Hemoglobin 33, Mean Corpuscular Hemoglobin Concent 33, Red Cell Distribution Width 14.3, Platelet Count 477H, Mean Platelet Volume 9.4, Sodium Level 139, Potassium Level 3.3L, Chloride Level 102, Carbon Dioxide Level 27, Anion Gap 10, Blood Urea Nitrogen 5L, Creatinine 0.62, Estimat Glomerular Filtration Rate > 60, BUN/Creatinine Ratio 8, Glucose Level 100, Calcium Level 8.2L, Magnesium Level 1.7 Assessment/Plan Assessment/Plan Assess & Plan/Chief Complaint 1. Acute diverticulitis -Surgery managing and she is on Unasyn as well as Flagyl 2. Left-sided pelvic abscess. Also status post IUD removal (after in place 40 years) with D&C Dr. Lyles perform surgery and is managing 3. Status post laparoscopy with lysis of adhesions in the left lower abdomen/pelvis. Sigmoid resection and end colostomy -Dr. Sotomayor following. All appropriate DVT prevention is in place. -Pulmonary status appears well at this time 12/23 -Patient on liquids 4. History of hypertension currently well controlled -Her lisinopril and hydrochlorothiazide has been initiated. 12/23 -Blood pressure is under well control. Clinical Quality Measures DVT/VTE Risk/Contraindication: Risk Factor Score Per Nursin GLADIS GRIGGS MD Dec 24, 2019 07:41
[2019-12-24 08:00] VITALS: BP 139/84
[2019-12-24] MEDS: lisINopril 20 MG (PRINIVIL) TABLET PO SCH (08:15)
[2019-12-24] MEDS: HYDROCHLOROTHIAZIDE 25 MG (HCTZ) TAB PO SCH (08:15)
[2019-12-24] MEDS: NS IV 1000 ML 1,000 ML IV SCH ×2 (08:15→17:30)
--- NOTE | 2019-12-24 08:38 | Physical Therapy Daily Note ---
PT Daily Note-Current Subjective Patient reports she feels better. Agrees to PT. Pain Numeric Pain Scale: 7 Location: Lower Location Body Site: Abdomen Pain Description: Acute Mental Status Patient Orientation: Normal For Age Attachments: Oxygen, Johnson Catheter, IV Transfers SCALE: Activities may be completed with or without assistive devices. 9-Kgxprjxieg-vxbyala completes the activity by him/herself with no assistance from a helper. 5-Set-up or Clean-up Assistance-helper sets up or cleans up; patient completes activity. [place] assists only prior to or following the activity. 4-Supervision or Touching Assistance-helper provides verbal cues and/or touching/steadying and/or contact guard assistance as patient completes activity. Assistance may be provided throughout the activity or intermittently. 3-Partial/Moderate Assistance-helper does LESS THAN HALF the effort. [place] lifts, holds or supports trunk or limbs, but provides less than half the effort. 2-Substantial/Maximal Assistance-helper does MORE THAN HALF the effort. [place] lifts or holds trunk or limbs and provides more than half the effort. 0-Emgvymgsx-pwvlwa does ALL the effort. Patient does none of the effort to complete the activity. Or, the assistance of 2 or more helpers is required for the patient to complete the activity. If activity was not attempted, code reason: 7-Patient Refused. 9-Not Applicable-not attempted and the patient did not perform the activity before the current illness, exacerbation or injury. 10-Not Attempted due to Environmental Limitations-(lack of equipment, weather restraints, etc.). 88-Not Attempted due to Medical Conditions or Safety Concerns. Roll Left & Right (QC): 5 Lying to Sitting/Side of Bed(Q: 4 Sit to Stand (QC): 5 Chair/Nla-zs-Iunwt Xfer(QC): 5 Weight Bearing Right Lower Extremity: Right Weight Bearing/Tolerated Left Lower Extremity: Left Weight Bearing/Tolerated Gait Training Does the Patient Walk?: Yes Distance: 300' Walk 10 feet (QC): 5 Walk 50 ft with 2 Turns(QC): 5 Walk 150 ft (QC): 5 Gait Assistive Device: FWW safe and functional/standing recovery periods due to pain and fatigue Exercises Seated Therapy Exercises: Ankle pumps, Long arc quads Seated Reps: 15 Assessment Patient is up in recliner with needs met. Patient reports she ambulates with nursing staff PRN during day. PT Detention Goals Detention Goals PT Band Builder Goals Time Frame: Dec 30, 2019 Roll Left & Right (QC): 6 Sit to Lying (QC): 6 Lying-Sitting on Side/Bed(QC): 6 Sit to Stand (QC): 6 Chair/Pqk-gm-Kliuc Xfer(QC): 6 Toilet Transfer (QC): 6 Car Transfer (QC): 6 Does the Patient Walk: Yes Walk 10 feet (QC): 6 Walk 50ft with 2 Turns (QC): 6 Walk 150 ft (QC): 6 Walking 10ft on Uneven Surface: 6 1 Step (curb) (QC): 6 4 Steps (QC): 6 12 Steps (QC): 9 Picking up an Object (QC): 6 Does the Pt use WC or Scooter?: No Wheel 50 feet with 2 turns (QC: 9 Wheel 150 feet: 9 PT Plan Treatment/Plan Treatment Plan: Continue Plan of Care Treatment Plan: Bed Mobility, Education, Functional Activity Radha, Functional Strength, Gait, Safety, Therapeutic Exercise, Transfers Treatment Duration: Dec 30, 2019 Frequency: 6 times per week Estimated Hrs Per Day: .25 hour per day (to .5) Patient and/or Family Agrees t: Yes Time/GCodes Time In: 730 Time Out: 753 Total Billed Treatment Time: 23 Total Billed Treatment 1 visit FA x 2 23 min JAISON QUINN PT Dec 24, 2019 08:38
--- NOTE | 2019-12-24 10:54 | NUR ---
DR. ATKINS'S PA HERE TO ROUND ON PT. NOTIFIED OF INCREASED DRAINAGE FROM AMIE. ORDER TO REMOVE STARK. REMOVED AT THIS TIME.
--- NOTE | 2019-12-24 11:11 | Progress Note ---
Subjective Date Seen by a Provider: Dec 24, 2019 Time Seen by a Provider: 10:50 Subjective/Events-last exam Patient seen with Dr. Urbina. Patient reports doing well. Just finished shower. Has been ambulating this AM. Tolerating clear liquids and has been having flatus from colostomy. Minimal abdominal pain. Denies any N/V as well as no Fever/chills. Objective Exam Vital Signs Date Time Temp Pulse Resp B/P (MAP) Pulse Ox O2 Delivery O2 Flow Rate FiO2 12/24/19 09:00 97 Nasal Cannula 2.00 12/24/19 08:00 36.4 86 20 139/84 (102) 97 Nasal Cannula 2.00 12/24/19 07:38 92 Nasal Cannula 2.00 12/24/19 04:50 37.2 98 16 113/73 (86) 95 Nasal Cannula 2.00 12/24/19 03:12 94 Nasal Cannula 2.00 12/23/19 20:45 Nasal Cannula 2.00 12/23/19 20:16 94 Nasal Cannula 3.00 12/23/19 17:45 37.3 12/23/19 17:15 37.3 91 20 121/79 (93) 100 Nasal Cannula 2.00 12/23/19 14:09 92 Nasal Cannula 2.00 I & O 12/24/19 07:00 Intake Total 2260 ml Output Total 1945 ml Balance 315 ml Capillary Refill : Less Than 3 SecondsLess Than 3 Seconds General Appearance: No Apparent Distress, WD/WN Neck: Normal Inspection, Non Tender, Supple Respiratory: Normal Breath Sounds, No Accessory Muscle Use, No Respiratory Distress Cardiovascular: Regular Rate, Rhythm, No Edema Gastrointestinal: normal bowel sounds, soft, tenderness, other (Right abdominal AMIE drain with clear SS drainage. Colostomy stoma is pink and moist.) Extremity: Normal Capillary Refill, Normal Inspection, Normal Range of Motion Neurologic/Psychiatric: Alert, Oriented x3 Skin: Other (Midline abdominal incision C/D/I with dressing in place) Results Lab Laboratory Tests 12/24/19 05:25: White Blood Count 16.5H, Red Blood Count 3.07L, Hemoglobin 10.1L, Hematocrit 31L , Mean Corpuscular Volume 100H, Mean Corpuscular Hemoglobin 33, Mean Corpuscular Hemoglobin Concent 33, Red Cell Distribution Width 14.3, Platelet Count 477H, Mean Platelet Volume 9.4, Sodium Level 139, Potassium Level 3.3L, Chloride Level 102, Carbon Dioxide Level 27, Anion Gap 10, Blood Urea Nitrogen 5L, Creatinine 0.62, Estimat Glomerular Filtration Rate > 60, BUN/Creatinine Ratio 8, Glucose Level 100, Calcium Level 8.2L, Magnesium Level 1.7 Assessment/Plan Assessment/Plan Assess & Plan/Chief Complaint A 64 year old female with LLQ ABDOMINAL PAIN, ACUTE DIVERTICULITIS, LEUKOCYTOSIS, HYPOKALEMIA, HYPOMAGNESEMIA S/P laparoscopy with lysis of adhesions to exploration and liberation of left pelvic abscess with sigmoid resection end colostomy VSS WBC 16.5 Having good urine output and will DC claros Passing flatus and will advance diet Continue IV antibiotics, pain, and nause meds Lovenox scd's for dvt prophylaxis Encourage ambulate Incentive spirometer PT replace K replace Mag Mat protocol AM labs Clinical Quality Measures DVT/VTE Risk/Contraindication: Risk Factor Score Per Nursin ASHLEY SIMMONS APRN Dec 24, 2019 11:11
--- NOTE | 2019-12-24 11:50 | NUR ---
TYLENOL 500MG PO FOR PAIN PER PT REQUEST. DID NOT WANT NARCOTIC PAIN MED, BECAUSE AWAITING VIDEO STREAM OF LISA GRADUATION.
[2019-12-24 12:08] VITALS: BP 135/83
[2019-12-24 15:45] VITALS: BP 123/80
[2019-12-24 19:40] VITALS: BP 125/82
[2019-12-24] MEDS: ONDANSETRON 4 MG/2 ML (SDV) Z0FRAN IVP PRN (19:46)
[2019-12-24] MEDS: ENOXAPARIN 40 MG/0.4 ML (LOVENOX) SYR SC SCH (20:07)
[2019-12-25] VITALS (7 sets, daily range): BP systolic 108–143; BP diastolic 67–85
[2019-12-25] MEDS: NS IV 1000 ML 1,000 ML IV SCH ×4 (01:40→21:25)
[2019-12-25] MEDS: PIPERACILLIN/TAZO 4.5 GM/NS 100 ML IV SCH ×6 (01:40→19:11)
[2019-12-25] MEDS: metroNIDAZOLE 500MG/100ML IVPB 100 ML IV SCH ×3 (02:15→18:51)
[2019-12-25] MEDS: RT-ALBUTEROL SULF 2.5 MG/3 ML PRE-MIX VIAL INH SCH ×3 (02:32→20:45)
[2019-12-25 05:34] LABS: HEMOGLOBIN 9.9 G/DL (11.5-16.0); MEAN PLATELET VOLUME 9.4 FL (7.4-10.4); RED CELL DISTRIBUTION WIDTH 14.5 % (10.0-14.5); WHITE BLOOD COUNT 16.9 10^3/uL (4.3-11.0)
[2019-12-25 05:41] LABS: CHLORIDE 102 MMOL/L (98-107); POTASSIUM 3.2 MMOL/L (3.6-5.0); SODIUM 139 MMOL/L (135-145)
[2019-12-25 05:42] LABS: CALCIUM 8.2 MG/DL (8.5-10.1)
[2019-12-25 06:03] LABS: BUN/CREATININE RATIO 7; CARBON DIOXIDE 27 MMOL/L (21-32); CREATININE SERUM 0.58 MG/DL (0.60-1.30); GFR ESTIMATED > 60; GLUCOSE 106 MG/DL (70-105); MAGNESIUM 1.7 MG/DL (1.6-2.4)
--- NOTE | 2019-12-25 07:02 | Progress Note ---
Subjective Date Seen by a Provider: Dec 25, 2019 Time Seen by a Provider: 06:55 Subjective/Events-last exam Patient awake this morning and drinking plenty of water. She does admit that flatus has been now noted from her colostomy site. She has been trying to walk more. With Johnson catheter out now she is using the restroom as she stays quite a bit. Objective Exam Vital Signs Date Time Temp Pulse Resp B/P (MAP) Pulse Ox O2 Delivery O2 Flow Rate FiO2 12/25/19 03:55 37.3 98 18 112/71 (85) 97 Nasal Cannula 2.00 12/25/19 02:33 94 Nasal Cannula 2.00 12/25/19 00:15 37.0 97 18 115/67 (83) 97 Nasal Cannula 2.00 12/24/19 20:45 88 Room Air 12/24/19 19:50 Nasal Cannula 2.00 12/24/19 19:40 37.7 87 18 125/82 (96) 95 Room Air 12/24/19 15:45 37.5 98 20 123/80 (94) 93 Room Air 12/24/19 14:14 92 Nasal Cannula 2.00 12/24/19 12:08 37.0 92 20 135/83 (100) 100 Room Air 12/24/19 09:00 97 Nasal Cannula 2.00 12/24/19 08:00 36.4 86 20 139/84 (102) 97 Nasal Cannula 2.00 12/24/19 07:38 92 Nasal Cannula 2.00 I & O 12/25/19 07:00 Intake Total 4990 ml Output Total 3520 ml Balance 1470 ml Capillary Refill : Less Than 3 SecondsLess Than 3 Seconds General Appearance: No Apparent Distress HEENT: Pharynx Normal Respiratory: Lungs Clear Cardiovascular: Regular Rate, Rhythm Gastrointestinal: other (Bowel sounds are noted this morning) Results Lab Laboratory Tests 12/25/19 05:15: White Blood Count 16.9H, Red Blood Count 3.04L, Hemoglobin 9.9L, Hematocrit 30L, Mean Corpuscular Volume 100H, Mean Corpuscular Hemoglobin 33, Mean Corpuscular Hemoglobin Concent 33, Red Cell Distribution Width 14.5, Platelet Count 521H, Mean Platelet Volume 9.4, Sodium Level 139, Potassium Level 3.2L, Chloride Level 102, Carbon Dioxide Level 27, Anion Gap 10, Blood Urea Nitrogen 4L, Creatinine 0.58L, Estimat Glomerular Filtration Rate > 60, BUN/Creatinine Ratio 7, Glucose Level 106H, Calcium Level 8.2L, Magnesium Level 1.7 Assessment/Plan Assessment/Plan Assess & Plan/Chief Complaint 1. Acute diverticulitis -Surgery managing and she is on Unasyn as well as Flagyl 2. Left-sided pelvic abscess. Also status post IUD removal (after in place 40 years) with D&C Dr. Lyles perform surgery and is managing 3. Status post laparoscopy with lysis of adhesions in the left lower abdomen/pelvis. Sigmoid resection and end colostomy -Dr. Sotomayor following. All appropriate DVT prevention is in place. -Pulmonary status appears well at this time 12/23 -Patient on liquids 12/24 -Patient clinically is feeling better. Slight nausea. Johnson catheter out. 4. History of hypertension currently well controlled -Her lisinopril and hydrochlorothiazide has been initiated. 12/23 -Blood pressure is under well control. 12/24-blood pressure under good control Clinical Quality Measures DVT/VTE Risk/Contraindication: Risk Factor Score Per Nursin GLADIS GRIGGS MD Dec 25, 2019 07:02
[2019-12-25] MEDS: HYDROCHLOROTHIAZIDE 25 MG (HCTZ) TAB PO SCH (08:01)
[2019-12-25] MEDS: lisINopril 20 MG (PRINIVIL) TABLET PO SCH (08:01)
[2019-12-25] MEDS: HYDROcodone/APAP 5 MG/325 MG (LORTAB) TAB PO PRN ×3 (08:02→21:25)
[2019-12-25] MEDS: ONDANSETRON 4 MG/2 ML (SDV) Z0FRAN IVP PRN (08:02)
--- NOTE | 2019-12-25 09:00 | NUR ---
PT AMBULATING IN SANDERS (APPROX 150FT) WITH STAND BY ASSIST
[2019-12-25] MEDS: KCL 10 MEQ TAB (MICRO K) PO SCH (09:33)
--- NOTE | 2019-12-25 10:34 | Progress Note ---
Subjective Date Seen by a Provider: Dec 25, 2019 Time Seen by a Provider: 10:00 Subjective/Events-last exam Patient seen with Dr. Urbina. Patient reports continues to do well. Tolerated diet yesterday with no N/V. Has not had much of appetite today. Minimal abdominal pain. No fever/chills. Passing lots of gas. No stool. Ambulating well. Objective Exam Vital Signs Date Time Temp Pulse Resp B/P (MAP) Pulse Ox O2 Delivery O2 Flow Rate FiO2 12/25/19 08:00 Nasal Cannula 2.00 12/25/19 03:55 37.3 98 18 112/71 (85) 97 Nasal Cannula 2.00 12/25/19 02:33 94 Nasal Cannula 2.00 12/25/19 00:15 37.0 97 18 115/67 (83) 97 Nasal Cannula 2.00 12/24/19 20:45 88 Room Air 12/24/19 19:50 Nasal Cannula 2.00 12/24/19 19:40 37.7 87 18 125/82 (96) 95 Room Air 12/24/19 15:45 37.5 98 20 123/80 (94) 93 Room Air 12/24/19 14:14 92 Nasal Cannula 2.00 12/24/19 12:08 37.0 92 20 135/83 (100) 100 Room Air I & O 12/25/19 07:00 Intake Total 4990 ml Output Total 3520 ml Balance 1470 ml Capillary Refill : Less Than 3 SecondsLess Than 3 Seconds General Appearance: No Apparent Distress, WD/WN Neck: Full Range of Motion, Normal Inspection, Supple Respiratory: Normal Breath Sounds, No Accessory Muscle Use, No Respiratory Distress Cardiovascular: Regular Rate, Rhythm, No Edema Gastrointestinal: normal bowel sounds, soft, tenderness, other (Stoma pink and moist. Midline incision C/D/I. AMIE drain with clear SS to serous drainage.) Extremity: Normal Inspection, Normal Range of Motion Neurologic/Psychiatric: Alert, Oriented x3 Skin: Normal Color, Warm/Dry Results Lab Laboratory Tests 12/25/19 05:15: White Blood Count 16.9H, Red Blood Count 3.04L, Hemoglobin 9.9L, Hematocrit 30L, Mean Corpuscular Volume 100H, Mean Corpuscular Hemoglobin 33, Mean Corpuscular Hemoglobin Concent 33, Red Cell Distribution Width 14.5, Platelet Count 521H, Mean Platelet Volume 9.4, Sodium Level 139, Potassium Level 3.2L, Chloride Level 102, Carbon Dioxide Level 27, Anion Gap 10, Blood Urea Nitrogen 4L, Creatinine 0.58L, Estimat Glomerular Filtration Rate > 60, BUN/Creatinine Ratio 7, Glucose Level 106H, Calcium Level 8.2L, Magnesium Level 1.7 Assessment/Plan Assessment/Plan Assess & Plan/Chief Complaint A 64 year old female with LLQ ABDOMINAL PAIN, ACUTE DIVERTICULITIS, LEUKOCYTOSIS, HYPOKALEMIA, HYPOMAGNESEMIA S/P laparoscopy with lysis of adhesions to exploration and liberation of left pelvic abscess with sigmoid resection end colostomy VSS WBC 16.9 Continue diet Continue IV antibiotics, pain, and nause meds Lovenox scd's for dvt prophylaxis Encourage ambulation Incentive spirometer PT replace K replace Mag Mat protocol AM labs Clinical Quality Measures DVT/VTE Risk/Contraindication: Risk Factor Score Per Nursin ASHLEY SIMMONS STEEPLECHASE JOCKEY Dec 25, 2019 10:34
[2019-12-25] MEDS: ENOXAPARIN 40 MG/0.4 ML (LOVENOX) SYR SC SCH (19:26)
[2019-12-26] MEDS: PIPERACILLIN/TAZO 4.5 GM/NS 100 ML IV SCH ×6 (02:04→18:19)
[2019-12-26] MEDS: metroNIDAZOLE 500MG/100ML IVPB 100 ML IV SCH ×3 (02:04→18:19)
[2019-12-26 05:42] LABS: HEMOGLOBIN 9.2 G/DL (11.5-16.0); MEAN PLATELET VOLUME 9.6 FL (7.4-10.4); RED CELL DISTRIBUTION WIDTH 14.2 % (10.0-14.5); WHITE BLOOD COUNT 14.1 10^3/uL (4.3-11.0)
[2019-12-26 05:49] LABS: CHLORIDE 102 MMOL/L (98-107); POTASSIUM 3.2 MMOL/L (3.6-5.0); SODIUM 139 MMOL/L (135-145)
[2019-12-26 05:51] LABS: GLUCOSE 95 MG/DL (70-105)
[2019-12-26 05:52] LABS: CARBON DIOXIDE 27 MMOL/L (21-32)
[2019-12-26 05:55] LABS: CREATININE SERUM 0.57 MG/DL (0.60-1.30); GFR ESTIMATED > 60
[2019-12-26 05:56] LABS: BUN/CREATININE RATIO 7
[2019-12-26 05:57] LABS: MAGNESIUM 1.7 MG/DL (1.6-2.4)
[2019-12-26] MEDS: KCL 10 MEQ TAB (MICRO K) PO SCH (06:11)
[2019-12-26] MEDS: NS IV 1000 ML 1,000 ML IV SCH ×2 (06:11→14:17)
--- NOTE | 2019-12-26 06:50 | Progress Note ---
Subjective Date Seen by a Provider: Dec 26, 2019 Time Seen by a Provider: 06:55 Subjective/Events-last exam Continues to be ambulatory very well. She does complain of her thighs being a little bit swollen. Otherwise her diet seems to be going fairly well. Objective Exam Vital Signs Date Time Temp Pulse Resp B/P (MAP) Pulse Ox O2 Delivery O2 Flow Rate FiO2 12/25/19 20:45 93 Room Air 12/25/19 19:51 37.1 83 20 108/73 (85) 94 Room Air 12/25/19 19:10 Room Air 12/25/19 15:37 37.0 75 20 143/85 (104) 100 Nasal Cannula 2.00 12/25/19 13:49 74 96 28 12/25/19 12:00 36.7 74 24 116/82 (93) 97 Room Air 12/25/19 08:00 Nasal Cannula 2.00 12/25/19 08:00 36.6 83 18 131/79 (96) 96 Room Air I & O 12/26/19 07:00 Intake Total 3850 ml Output Total 3920 ml Balance -70 ml Capillary Refill : Less Than 3 SecondsLess Than 3 Seconds General Appearance: No Apparent Distress Neck: Supple Respiratory: Lungs Clear Cardiovascular: Regular Rate, Rhythm Gastrointestinal: soft, other (Bowel sounds very obvious) Skin: Normal Color, Other (Somewhat pale) Results Lab Laboratory Tests 12/26/19 05:10: White Blood Count 14.1H, Red Blood Count 2.84L, Hemoglobin 9.2L, Hematocrit 29L, Mean Corpuscular Volume 101H, Mean Corpuscular Hemoglobin 32, Mean Corpuscular Hemoglobin Concent 32, Red Cell Distribution Width 14.2, Platelet Count 545H, Mean Platelet Volume 9.6, Sodium Level 139, Potassium Level 3.2L, Chloride Level 102, Carbon Dioxide Level 27, Anion Gap 10, Blood Urea Nitrogen 4L, Creatinine 0.57L, Estimat Glomerular Filtration Rate > 60, BUN/Creatinine Ratio 7, Glucose Level 95, Calcium Level 8.0L, Magnesium Level 1.7 Assessment/Plan Assessment/Plan Assess & Plan/Chief Complaint 1. Acute diverticulitis -Surgery managing and she is on Unasyn as well as Flagyl 2. Left-sided pelvic abscess. Also status post IUD removal (after in place 40 years) with D&C Dr. Lyles perform surgery and is managing 3. Status post laparoscopy with lysis of adhesions in the left lower abdomen/pelvis. Sigmoid resection and end colostomy -Dr. Sotomayor following. All appropriate DVT prevention is in place. -Pulmonary status appears well at this time 12/23 -Patient on liquids 12/24 -Patient clinically is feeling better. Slight nausea. Johnson catheter out. 4. History of hypertension currently well controlled -Her lisinopril and hydrochlorothiazide has been initiated. 12/23 -Blood pressure is under well control. 12/24-blood pressure under good control 12/25 -one recorded bp slightly elevated, otherwise normal bp on lisinopril/hctz 5. Anemia, post op and dilutional from IVFs' -monitoring 6. Hypokalemia -replacement Clinical Quality Measures DVT/VTE Risk/Contraindication: Risk Factor Score Per Nursin GLADIS GRIGGS MD Dec 26, 2019 06:50
[2019-12-26] MEDS: RT-ALBUTEROL SULF 2.5 MG/3 ML PRE-MIX VIAL INH SCH ×2 (07:21→18:44)
[2019-12-26 07:42] VITALS: BP 122/80
[2019-12-26] MEDS: HYDROCHLOROTHIAZIDE 25 MG (HCTZ) TAB PO SCH (08:43)
[2019-12-26] MEDS: HYDROcodone/APAP 5 MG/325 MG (LORTAB) TAB PO PRN ×3 (08:43→20:51)
[2019-12-26] MEDS: lisINopril 20 MG (PRINIVIL) TABLET PO SCH (08:43)
[2019-12-26] MEDS: POTASSIUM CL 10MEQ/50ML IVPB 50 ML IV SCH ×4 (09:34→13:33)
--- NOTE | 2019-12-26 09:49 | Physical Therapy Daily Note ---
PT Daily Note-Current Subjective Patient reports she is feeling much better. Agrees to PT. Pain Numeric Pain Scale: 5-Moderate Pain Location: Left, Lower Location Body Site: Abdomen Pain Description: Pressure, Acute Mental Status Patient Orientation: Normal For Age Attachments: IV Transfers SCALE: Activities may be completed with or without assistive devices. 4-Vwosgdsyru-lgvfhdg completes the activity by him/herself with no assistance from a helper. 5-Set-up or Clean-up Assistance-helper sets up or cleans up; patient completes activity. [place] assists only prior to or following the activity. 4-Supervision or Touching Assistance-helper provides verbal cues and/or touching/steadying and/or contact guard assistance as patient completes activity. Assistance may be provided throughout the activity or intermittently. 3-Partial/Moderate Assistance-helper does LESS THAN HALF the effort. [place] lifts, holds or supports trunk or limbs, but provides less than half the effort. 2-Substantial/Maximal Assistance-helper does MORE THAN HALF the effort. [place] lifts or holds trunk or limbs and provides more than half the effort. 8-Ltbnpmskw-hkreyt does ALL the effort. Patient does none of the effort to complete the activity. Or, the assistance of 2 or more helpers is required for the patient to complete the activity. If activity was not attempted, code reason: 7-Patient Refused. 9-Not Applicable-not attempted and the patient did not perform the activity before the current illness, exacerbation or injury. 10-Not Attempted due to Environmental Limitations-(lack of equipment, weather restraints, etc.). 88-Not Attempted due to Medical Conditions or Safety Concerns. Sit to Stand (QC): 6 Weight Bearing Right Lower Extremity: Right Weight Bearing/Tolerated Left Lower Extremity: Left Weight Bearing/Tolerated Gait Training Does the Patient Walk?: Yes Distance: 600' Walk 10 feet (QC): 6 Walk 50 ft with 2 Turns(QC): 6 Walk 150 ft (QC): 6 Gait Assistive Device: FWW safe and functional with no deviation Exercises Seated Therapy Exercises: Ankle pumps, Long arc quads Seated Reps: 15 (instructed to perform PRN) Assessment Patient ambulates with family and nursing staff PRN. Patient demonstrates exercises independently without difficulty. Plan dismissal from services this week. PT Senior Living Goals Senior Living Goals PT Newspaper Press Operator Apprentice Goals Time Frame: Dec 30, 2019 Roll Left & Right (QC): 6 Sit to Lying (QC): 6 Lying-Sitting on Side/Bed(QC): 6 Sit to Stand (QC): 6 Chair/Rmw-nz-Kqdus Xfer(QC): 6 Toilet Transfer (QC): 6 Car Transfer (QC): 6 Does the Patient Walk: Yes Walk 10 feet (QC): 6 Walk 50ft with 2 Turns (QC): 6 Walk 150 ft (QC): 6 Walking 10ft on Uneven Surface: 6 1 Step (curb) (QC): 6 4 Steps (QC): 6 12 Steps (QC): 9 Picking up an Object (QC): 6 Does the Pt use WC or Scooter?: No Wheel 50 feet with 2 turns (QC: 9 Wheel 150 feet: 9 PT Plan Treatment/Plan Treatment Plan: Continue Plan of Care Treatment Plan: Bed Mobility, Education, Functional Activity Radha, Functional Strength, Gait, Safety, Therapeutic Exercise, Transfers Treatment Duration: Dec 30, 2019 Frequency: 6 times per week Estimated Hrs Per Day: .25 hour per day (to .5) Patient and/or Family Agrees t: Yes Time/GCodes Time In: 920 Time Out: 936 Total Billed Treatment Time: 16 Total Billed Treatment 1 visit FA 16 min JAISON QUINN PT Dec 26, 2019 09:49
[2019-12-26 13:54] VITALS: BP 122/80
--- NOTE | 2019-12-26 17:41 | Progress Note - Surgery ---
Subjective Date Seen by a Provider: Dec 26, 2019 Time Seen by a Provider: 07:50 Subjective/Events-last exam Patient feels like she is slowly improving. Pain controlled. No appetite. Colostomy some stool. Denies fever sweats chills shortness of breath or chest pain. Using IS some. WBC slowly trending down. Objective Exam Vital Signs Date Time Temp Pulse Resp B/P (MAP) Pulse Ox O2 Delivery O2 Flow Rate FiO2 12/26/19 13:54 37.4 87 93 21 12/26/19 08:00 91 Room Air 12/26/19 07:42 37.4 99 20 122/80 (94) 91 Room Air 12/26/19 07:21 95 Nasal Cannula 2.00 12/25/19 20:45 93 Room Air 12/25/19 19:51 37.1 83 20 108/73 (85) 94 Room Air 12/25/19 19:10 Room Air I & O 12/26/19 07:00 Intake Total 3850 ml Output Total 3920 ml Balance -70 ml Capillary Refill : Less Than 3 SecondsLess Than 3 Seconds General Appearance: No Apparent Distress (laying in bed) HEENT: Normal ENT Inspection Neck: Supple Respiratory: Chest Non Tender, No Accessory Muscle Use, No Respiratory Distress Cardiovascular: Regular Rate, Rhythm Gastrointestinal: soft, other (colostomy pink, some stool in bag, midline incsion c/d/i) Extremity: Normal Inspection, Normal Range of Motion Neurologic/Psychiatric: Alert, Oriented x3 Skin: Normal Color, Other (Somewhat pale) Lymphatic: No Adenopathy Results Lab Laboratory Tests 12/26/19 05:10: White Blood Count 14.1H, Red Blood Count 2.84L, Hemoglobin 9.2L, Hematocrit 29L, Mean Corpuscular Volume 101H, Mean Corpuscular Hemoglobin 32, Mean Corpuscular Hemoglobin Concent 32, Red Cell Distribution Width 14.2, Platelet Count 545H, Mean Platelet Volume 9.6, Sodium Level 139, Potassium Level 3.2L, Chloride Level 102, Carbon Dioxide Level 27, Anion Gap 10, Blood Urea Nitrogen 4L, Creatinine 0.57L, Estimat Glomerular Filtration Rate > 60, BUN/Creatinine Ratio 7, Glucose Level 95, Calcium Level 8.0L, Magnesium Level 1.7 Assessment/Plan Assessment/Plan Assessment/Plan LLQ ABDOMINAL PAIN ACUTE DIVERTICULITIS LEUKOCYTOSIS HYPOKALEMIA HYPOMAGNESEMIA S/P laparoscopy with lysis of adhesions to exploration and liberation of left pelvic abscess with sigmoid resection end colostomy replace K Magnesium normal Continue abx IS 10x per hr lovenox scd's for dvt prophylaxis diet as tolerates, repeat labs in am Clinical Quality Measures DVT/VTE Risk/Contraindication: Risk Factor Score Per Nursin STEPHANY TELLEZ DO Dec 26, 2019 17:41
[2019-12-26 19:41] VITALS: BP 138/81
[2019-12-26] MEDS: ENOXAPARIN 40 MG/0.4 ML (LOVENOX) SYR SC SCH (20:51)
[2019-12-27] MEDS: metroNIDAZOLE 500MG/100ML IVPB 100 ML IV SCH ×3 (02:29→17:23)
[2019-12-27] MEDS: NS IV 1000 ML 1,000 ML IV SCH ×3 (02:37→16:37)
[2019-12-27] MEDS: HYDROcodone/APAP 5 MG/325 MG (LORTAB) TAB PO PRN ×3 (02:37→17:06)
[2019-12-27] MEDS: PIPERACILLIN/TAZO 4.5 GM/NS 100 ML IV SCH ×6 (03:32→17:23)
[2019-12-27 05:43] LABS: HEMOGLOBIN 9.3 G/DL (11.5-16.0); MEAN PLATELET VOLUME 9.4 FL (7.4-10.4); RED CELL DISTRIBUTION WIDTH 14.4 % (10.0-14.5); WHITE BLOOD COUNT 13.7 10^3/uL (4.3-11.0)
[2019-12-27 05:50] LABS: CHLORIDE 101 MMOL/L (98-107); POTASSIUM 3.6 MMOL/L (3.6-5.0); SODIUM 140 MMOL/L (135-145)
[2019-12-27 05:51] LABS: CALCIUM 8.1 MG/DL (8.5-10.1)
[2019-12-27 05:52] LABS: GLUCOSE 101 MG/DL (70-105)
[2019-12-27 05:53] LABS: CARBON DIOXIDE 28 MMOL/L (21-32)
[2019-12-27 05:55] LABS: CREATININE SERUM 0.59 MG/DL (0.60-1.30); GFR ESTIMATED > 60
[2019-12-27 05:56] LABS: BUN/CREATININE RATIO 7
[2019-12-27 05:58] LABS: MAGNESIUM 1.7 MG/DL (1.6-2.4)
[2019-12-27] MEDS: KCL 10 MEQ TAB (MICRO K) PO SCH (06:14)
--- NOTE | 2019-12-27 06:57 | Progress Note ---
Subjective Date Seen by a Provider: Dec 27, 2019 Time Seen by a Provider: 07:05 Subjective/Events-last exam Patient has been trying to eat more but her appetite is not the best as she states. She has been trying to walk more. Objective Exam Vital Signs Date Time Temp Pulse Resp B/P (MAP) Pulse Ox O2 Delivery O2 Flow Rate FiO2 12/26/19 20:00 Room Air 12/26/19 19:41 37.4 93 17 138/81 (100) 96 Room Air 12/26/19 18:44 95 Room Air 12/26/19 13:54 37.4 87 93 21 12/26/19 08:00 91 Room Air 12/26/19 07:42 37.4 99 20 122/80 (94) 91 Room Air 12/26/19 07:21 95 Nasal Cannula 2.00 I & O 12/27/19 07:00 Intake Total 1700 ml Output Total 4310 ml Balance -2610 ml Capillary Refill : Less Than 3 SecondsLess Than 3 Seconds General Appearance: No Apparent Distress Respiratory: Lungs Clear Cardiovascular: Regular Rate, Rhythm Gastrointestinal: normal bowel sounds, soft Extremity: Normal Capillary Refill Results Lab Laboratory Tests 12/27/19 05:05: White Blood Count 13.7H, Red Blood Count 2.87L, Hemoglobin 9.3L, Hematocrit 29L, Mean Corpuscular Volume 101H, Mean Corpuscular Hemoglobin 32, Mean Corpuscular Hemoglobin Concent 32, Red Cell Distribution Width 14.4, Platelet Count 616H, Mean Platelet Volume 9.4, Sodium Level 140, Potassium Level 3.6, Chloride Level 101, Carbon Dioxide Level 28, Anion Gap 11, Blood Urea Nitrogen 4L, Creatinine 0.59L, Estimat Glomerular Filtration Rate > 60, BUN/Creatinine Ratio 7, Glucose Level 101, Calcium Level 8.1L, Magnesium Level 1.7 Assessment/Plan Assessment/Plan Assess & Plan/Chief Complaint 1. Acute diverticulitis -Surgery managing and she is on Unasyn as well as Flagyl 2. Left-sided pelvic abscess. Also status post IUD removal (after in place 40 years) with D&C Dr. Lyles perform surgery and is managing 3. Status post laparoscopy with lysis of adhesions in the left lower abdomen/pelvis. Sigmoid resection and end colostomy -Dr. Sotomayor following. All appropriate DVT prevention is in place. -Pulmonary status appears well at this time 12/23 -Patient on liquids 12/24 -Patient clinically is feeling better. Slight nausea. Johnson catheter out. 4. History of hypertension currently well controlled -Her lisinopril and hydrochlorothiazide has been initiated. 12/23 -Blood pressure is under well control. 12/24-blood pressure under good control 12/25 -one recorded bp slightly elevated, otherwise normal bp on lisinopril/hctz 5. Anemia, post op and dilutional from IVFs' -monitoring 12/26 -hemoglobin actually increased to 9.3 from 9.2 over the last 24 hours. 6. Hypokalemia -replacement 12/26 -otassium is within normal range today. Clinical Quality Measures DVT/VTE Risk/Contraindication: Risk Factor Score Per Nursin GLADIS GRIGGS MD Dec 27, 2019 06:57
[2019-12-27] MEDS: RT-ALBUTEROL SULF 2.5 MG/3 ML PRE-MIX VIAL INH SCH ×2 (07:58→18:50)
[2019-12-27] MEDS: lisINopril 20 MG (PRINIVIL) TABLET PO SCH (08:07)
[2019-12-27] MEDS: HYDROCHLOROTHIAZIDE 25 MG (HCTZ) TAB PO SCH (08:07)
[2019-12-27 08:10] VITALS: BP 147/87
--- NOTE | 2019-12-27 08:58 | Progress Note - Surgery ---
Subjective Date Seen by a Provider: Dec 27, 2019 Time Seen by a Provider: 08:56 Subjective/Events-last exam Pain controlled. Still hurts when increasing activity. Using IS some. Colostomy with output. No appetite. WBC trending down. Denies n/v fever sweats chills shortness of breath or chest pain. Objective Exam Vital Signs Date Time Temp Pulse Resp B/P (MAP) Pulse Ox O2 Delivery O2 Flow Rate FiO2 12/27/19 08:10 36.7 80 20 147/87 (107) 93 Room Air 12/27/19 07:58 91 Room Air 12/26/19 20:00 Room Air 12/26/19 19:41 37.4 93 17 138/81 (100) 96 Room Air 12/26/19 18:44 95 Room Air 12/26/19 13:54 37.4 87 93 21 I & O 12/27/19 07:00 Intake Total 1700 ml Output Total 4310 ml Balance -2610 ml Capillary Refill : Less Than 3 SecondsLess Than 3 Seconds General Appearance: No Apparent Distress HEENT: Normal ENT Inspection Neck: Supple Respiratory: Chest Non Tender, No Accessory Muscle Use, No Respiratory Distress Cardiovascular: Regular Rate, Rhythm Gastrointestinal: soft, other (colostomy pink, some stool in bag, midline incsion c/d/i micah serosang) Extremity: Normal Inspection, Normal Range of Motion, Swelling Neurologic/Psychiatric: Alert, Oriented x3 Skin: Normal Color, Other (Somewhat pale) Lymphatic: No Adenopathy Results Lab Laboratory Tests 12/27/19 05:05: White Blood Count 13.7H, Red Blood Count 2.87L, Hemoglobin 9.3L, Hematocrit 29L, Mean Corpuscular Volume 101H, Mean Corpuscular Hemoglobin 32, Mean Corpuscular Hemoglobin Concent 32, Red Cell Distribution Width 14.4, Platelet Count 616H, Mean Platelet Volume 9.4, Sodium Level 140, Potassium Level 3.6, Chloride Level 101, Carbon Dioxide Level 28, Anion Gap 11, Blood Urea Nitrogen 4L, Creatinine 0.59L, Estimat Glomerular Filtration Rate > 60, BUN/Creatinine Ratio 7, Glucose Level 101, Calcium Level 8.1L, Magnesium Level 1.7 Assessment/Plan Assessment/Plan Assessment/Plan LLQ ABDOMINAL PAIN ACUTE DIVERTICULITIS LEUKOCYTOSIS HYPOKALEMIA HYPOMAGNESEMIA S/P laparoscopy with lysis of adhesions to exploration and liberation of left pelvic abscess with sigmoid resection end colostomy monitor K Magnesium normal Continue abx IS 10x per hr lovenox scd's for dvt prophylaxis diet as tolerates, repeat labs in am home soon Clinical Quality Measures DVT/VTE Risk/Contraindication: Risk Factor Score Per Nursin STEPHANY TELLEZ DO Dec 27, 2019 08:58
--- NOTE | 2019-12-27 09:20 | NUR ---
midline incision assessed and cleaned with alcohol and left open to air at this time. Free from erythema or and drainage.
--- NOTE | 2019-12-27 10:11 | Physical Therapy Daily Note ---
PT Daily Note-Current Subjective Patient agrees to PT. Reports she plans on dismissal this week to home with family. Pain Numeric Pain Scale: 8 Location: Right Location Body Site: Side Pain Description: Pressure, Sharp Mental Status Patient Orientation: Normal For Age Attachments: IV Transfers SCALE: Activities may be completed with or without assistive devices. 2-Loipycmzxn-oyhrufr completes the activity by him/herself with no assistance from a helper. 5-Set-up or Clean-up Assistance-helper sets up or cleans up; patient completes activity. [place] assists only prior to or following the activity. 4-Supervision or Touching Assistance-helper provides verbal cues and/or touching/steadying and/or contact guard assistance as patient completes activity. Assistance may be provided throughout the activity or intermittently. 3-Partial/Moderate Assistance-helper does LESS THAN HALF the effort. [place] lifts, holds or supports trunk or limbs, but provides less than half the effort. 2-Substantial/Maximal Assistance-helper does MORE THAN HALF the effort. [place] lifts or holds trunk or limbs and provides more than half the effort. 2-Radzddjli-msqfeh does ALL the effort. Patient does none of the effort to complete the activity. Or, the assistance of 2 or more helpers is required for the patient to complete the activity. If activity was not attempted, code reason: 7-Patient Refused. 9-Not Applicable-not attempted and the patient did not perform the activity before the current illness, exacerbation or injury. 10-Not Attempted due to Environmental Limitations-(lack of equipment, weather restraints, etc.). 88-Not Attempted due to Medical Conditions or Safety Concerns. Sit to Stand (QC): 6 Weight Bearing Right Lower Extremity: Right Weight Bearing/Tolerated Left Lower Extremity: Left Weight Bearing/Tolerated Gait Training Does the Patient Walk?: Yes Distance: 800' Walk 10 feet (QC): 6 Walk 50 ft with 2 Turns(QC): 6 Walk 150 ft (QC): 6 Gait Assistive Device: FWW multiple standing recovery periods due to right side pain Assessment Patient did toilet self and is concerned with not receiving education on colostomy care. SW coordinator and RN notified of concern. Plan dismissal this week. PT Alf Goals Machine Taper Goals PT Alf Goals Time Frame: Dec 30, 2019 Roll Left & Right (QC): 6 Sit to Lying (QC): 6 Lying-Sitting on Side/Bed(QC): 6 Sit to Stand (QC): 6 Chair/Jjt-dq-Jtprr Xfer(QC): 6 Toilet Transfer (QC): 6 Car Transfer (QC): 6 Does the Patient Walk: Yes Walk 10 feet (QC): 6 Walk 50ft with 2 Turns (QC): 6 Walk 150 ft (QC): 6 Walking 10ft on Uneven Surface: 6 1 Step (curb) (QC): 6 4 Steps (QC): 6 12 Steps (QC): 9 Picking up an Object (QC): 6 Does the Pt use WC or Scooter?: No Wheel 50 feet with 2 turns (QC: 9 Wheel 150 feet: 9 PT Plan Treatment/Plan Treatment Plan: Continue Plan of Care Treatment Plan: Bed Mobility, Education, Functional Activity Radha, Functional Strength, Gait, Safety, Therapeutic Exercise, Transfers Treatment Duration: Dec 30, 2019 Frequency: 6 times per week Estimated Hrs Per Day: .25 hour per day (to .5) Patient and/or Family Agrees t: Yes Time/GCodes Time In: 935 Time Out: 959 Total Billed Treatment Time: 24 Total Billed Treatment 1 visit FA x 2 24 min JAISON QUINN PT Dec 27, 2019 10:10
--- NOTE | 2019-12-27 12:33 | NUR ---
Swing Bed Note: Anticipate that the patient will likely discharge to home tomorrow. Visited with her about her anticipated needs at discharge. She has requested to have home health at discharge for continued Colostomy education. She has elected [facility] for her provider. Referral sent to [facility] and then gathered more information for them so that they could ensure that they had the needed ostomy supplies for her. This is a 2 piece [place] apparatus and the numbers from the bag are; 64835, 70mm, 2 3/4 in. Called and gave this information to Miller.
[2019-12-27] MEDS: ONDANSETRON 4 MG/2 ML (SDV) Z0FRAN IVP PRN ×2 (16:36→20:35)
[2019-12-27 20:03] VITALS: BP 138/81
[2019-12-27] MEDS: ENOXAPARIN 40 MG/0.4 ML (LOVENOX) SYR SC SCH (20:33)
[2019-12-28] MEDS: HYDROcodone/APAP 5 MG/325 MG (LORTAB) TAB PO PRN ×3 (00:53→16:50)
[2019-12-28] MEDS: NS IV 1000 ML 1,000 ML IV SCH ×3 (02:21→20:00)
[2019-12-28] MEDS: metroNIDAZOLE 500MG/100ML IVPB 100 ML IV SCH (02:21)
[2019-12-28] MEDS: PIPERACILLIN/TAZO 4.5 GM/NS 100 ML IV SCH ×4 (02:22→09:54)
[2019-12-28 05:21] LABS: HEMOGLOBIN 9.3 G/DL (11.5-16.0); MEAN PLATELET VOLUME 9.3 FL (7.4-10.4); RED CELL DISTRIBUTION WIDTH 14.3 % (10.0-14.5); WHITE BLOOD COUNT 13.1 10^3/uL (4.3-11.0)
[2019-12-28 05:39] LABS: CHLORIDE 104 MMOL/L (98-107); POTASSIUM 3.7 MMOL/L (3.6-5.0); SODIUM 140 MMOL/L (135-145)
[2019-12-28 05:41] LABS: CALCIUM 8.1 MG/DL (8.5-10.1); GLUCOSE 99 MG/DL (70-105)
[2019-12-28 05:42] LABS: CARBON DIOXIDE 28 MMOL/L (21-32)
[2019-12-28 05:45] LABS: GFR ESTIMATED > 60
[2019-12-28 05:46] LABS: BUN/CREATININE RATIO 5
[2019-12-28 05:47] LABS: MAGNESIUM 1.8 MG/DL (1.6-2.4)
[2019-12-28] MEDS: KCL 10 MEQ TAB (MICRO K) PO SCH (06:14)
[2019-12-28] MEDS: ONDANSETRON 4 MG/2 ML (SDV) Z0FRAN IVP PRN ×3 (07:04→22:07)
--- NOTE | 2019-12-28 07:07 | Progress Note ---
Subjective Date Seen by a Provider: Dec 28, 2019 Time Seen by a Provider: 07:00 Subjective/Events-last exam Patient reports her appetite is still "so-so". 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 Her oral intake regarding fluids had markedly improved over the last 24 hours. She reports still making some stool from the colostomy Objective Exam Vital Signs Date Time Temp Pulse Resp B/P (MAP) Pulse Ox O2 Delivery O2 Flow Rate FiO2 12/27/19 20:03 37.2 92 16 138/81 (100) 98 Room Air 12/27/19 20:00 Room Air 12/27/19 18:50 93 Room Air 12/27/19 08:10 36.7 80 20 147/87 (107) 93 Room Air 12/27/19 08:00 93 Room Air 2.00 12/27/19 07:58 91 Room Air I & O 12/28/19 07:00 Intake Total 2360 ml Output Total 7280 ml Balance -4920 ml Capillary Refill : Less Than 3 SecondsLess Than 3 Seconds General Appearance: No Apparent Distress Neck: Supple Respiratory: Lungs Clear (In the lung bases) Cardiovascular: Regular Rate, Rhythm Gastrointestinal: normal bowel sounds, soft Extremity: Normal Capillary Refill Neurologic/Psychiatric: Oriented x3 Skin: Normal Color Results Lab Laboratory Tests 12/28/19 05:00: White Blood Count 13.1H, Red Blood Count 2.88L, Hemoglobin 9.3L, Hematocrit 29L, Mean Corpuscular Volume 100H, Mean Corpuscular Hemoglobin 32, Mean Corpuscular Hemoglobin Concent 32, Red Cell Distribution Width 14.3, Platelet Count 636H, Mean Platelet Volume 9.3, Sodium Level 140, Potassium Level 3.7, Chloride Level 104, Carbon Dioxide Level 28, Anion Gap 8, Blood Urea Nitrogen 3L, Creatinine 0.60, Estimat Glomerular Filtration Rate > 60, BUN/Creatinine Ratio 5, Glucose Level 99, Calcium Level 8.1L, Magnesium Level 1.8 Assessment/Plan Assessment/Plan Assess & Plan/Chief Complaint 1. Acute diverticulitis -Surgery managing and she is on Unasyn as well as Flagyl 2. Left-sided pelvic abscess. Also status post IUD removal (after in place 40 years) with D&C Dr. Lyles perform surgery and is managing 3. Status post laparoscopy with lysis of adhesions in the left lower abdomen/pelvis. Sigmoid resection and end colostomy -Dr. Sotomayor following. All appropriate DVT prevention is in place. -Pulmonary status appears well at this time 12/23 -Patient on liquids 12/24 -Patient clinically is feeling better. Slight nausea. Johnson catheter out. 4. History of hypertension currently well controlled -Her lisinopril and hydrochlorothiazide has been initiated. 12/23 -Blood pressure is under well control. 12/24-blood pressure under good control 12/25 -one recorded bp slightly elevated, otherwise normal bp on lisinopril/hctz 5. Anemia, post op and dilutional from IVFs' -monitoring 12/26-hemoglobin actually increased to 9.3 from 9.2 over the last 24 hours. 12/27-stable at 9.3 6. Hypokalemia -replacement 12/26 -potassium is within normal range today. 12/27-potassium stabilizes. Decrease IV fluids to 80 mL per hour Clinical Quality Measures DVT/VTE Risk/Contraindication: Risk Factor Score Per Nursin GLADIS GRIGGS MD Dec 28, 2019 07:07
[2019-12-28] MEDS ORDERED: ONDANSETRON 4 MG (ZOFRAN) ORAL DISSOLVE TAB PO PRN (07:15)
[2019-12-28] MEDS: RT-ALBUTEROL SULF 2.5 MG/3 ML PRE-MIX VIAL INH SCH ×2 (07:19→20:50)
[2019-12-28 08:00] VITALS: BP 152/87
[2019-12-28] MEDS: HYDROCHLOROTHIAZIDE 25 MG (HCTZ) TAB PO SCH (08:21)
[2019-12-28] MEDS: lisINopril 20 MG (PRINIVIL) TABLET PO SCH (08:21)
--- NOTE | 2019-12-28 08:49 | Physical Therapy Daily Note ---
PT Daily Note-Current Subjective Pt in recliner upon arrival and agrees to PT. Pt stated pain was better, at end of tx pt stated pain in R side. Pain Location: Right Location Body Site: Side Pain Description: Pressure Comment: Pt didn't rate pain. Mental Status Patient Orientation: Person, Place, Time, Situation Attachments: IV Transfers SCALE: Activities may be completed with or without assistive devices. 2-Clfazsjpzj-facoiur completes the activity by him/herself with no assistance from a helper. 5-Set-up or Clean-up Assistance-helper sets up or cleans up; patient completes activity. [place] assists only prior to or following the activity. 4-Supervision or Touching Assistance-helper provides verbal cues and/or touching/steadying and/or contact guard assistance as patient completes activity. Assistance may be provided throughout the activity or intermittently. 3-Partial/Moderate Assistance-helper does LESS THAN HALF the effort. [place] lifts, holds or supports trunk or limbs, but provides less than half the effort. 2-Substantial/Maximal Assistance-helper does MORE THAN HALF the effort. [place] lifts or holds trunk or limbs and provides more than half the effort. 5-Fchmbqvaf-imdapk does ALL the effort. Patient does none of the effort to complete the activity. Or, the assistance of 2 or more helpers is required for the patient to complete the activity. If activity was not attempted, code reason: 7-Patient Refused. 9-Not Applicable-not attempted and the patient did not perform the activity before the current illness, exacerbation or injury. 10-Not Attempted due to Environmental Limitations-(lack of equipment, weather restraints, etc.). 88-Not Attempted due to Medical Conditions or Safety Concerns. Sit to Stand (QC): 6 Weight Bearing Right Lower Extremity: Right Weight Bearing/Tolerated Left Lower Extremity: Left Weight Bearing/Tolerated Gait Training Does the Patient Walk?: Yes Distance: 600 Walk 10 feet (QC): 6 Walk 50 ft with 2 Turns(QC): 6 Walk 150 ft (QC): 6 Pt pushes IV pull and uses it for stability. Exercises Standing: Hip Abduction, Heel/toe raises, Marching Standing Reps: 12 Treatments Pt amb from room around unit, during a standing rest break pt performed standing exercises pt stabilizing on window counter. Pt returns to recliner and was left with all needs met. Assessment Current Status: Good Progress Pt required standing rest breaks d/t SOB. PT Drum Saw Operator Goals Residential Goals PT Residential Goals Time Frame: Dec 30, 2019 Roll Left & Right (QC): 6 Sit to Lying (QC): 6 Lying-Sitting on Side/Bed(QC): 6 Sit to Stand (QC): 6 Chair/Bqg-as-Inapz Xfer(QC): 6 Toilet Transfer (QC): 6 Car Transfer (QC): 6 Does the Patient Walk: Yes Walk 10 feet (QC): 6 Walk 50ft with 2 Turns (QC): 6 Walk 150 ft (QC): 6 Walking 10ft on Uneven Surface: 6 1 Step (curb) (QC): 6 4 Steps (QC): 6 12 Steps (QC): 9 Picking up an Object (QC): 6 Does the Pt use WC or Scooter?: No Wheel 50 feet with 2 turns (QC: 9 Wheel 150 feet: 9 PT Plan Problem List Problem List: Activity Tolerance, Functional Strength Treatment/Plan Treatment Plan: Continue Plan of Care Treatment Plan: Bed Mobility, Education, Functional Activity Radha, Functional Strength, Gait, Safety, Therapeutic Exercise, Transfers Treatment Duration: Dec 30, 2019 Frequency: 6 times per week Estimated Hrs Per Day: .25 hour per day (to .5) Patient and/or Family Agrees t: Yes Safety Risks/Education Patient Education: Gait Training, Correct Positioning, Safety Issues Teaching Recipient: Patient Teaching Methods: Demonstration, Discussion Response to Teaching: Verbalize Understanding, Return Demonstration Time/GCodes Time In: 820 Time Out: 838 Total Billed Treatment Time: 18 Total Billed Treatment 1, GT YAJAIRA SAVAGE COURTROOM CLERK Dec 28, 2019 08:49
--- NOTE | 2019-12-28 10:54 | Progress Note - Surgery ---
Subjective Date Seen by a Provider: Dec 28, 2019 Time Seen by a Provider: 10:51 Subjective/Events-last exam some nausea. pain controlled. ostomy producing stool. feels weak still using IS some. denies fever sweats chills shortness of breath or chest pain. Objective Exam Vital Signs Date Time Temp Pulse Resp B/P (MAP) Pulse Ox O2 Delivery O2 Flow Rate FiO2 12/28/19 08:00 37.0 85 18 152/87 (108) 93 Room Air 12/28/19 08:00 Nasal Cannula 2.00 12/28/19 07:20 93 Room Air 12/27/19 20:03 37.2 92 16 138/81 (100) 98 Room Air 12/27/19 20:00 Room Air 12/27/19 18:50 93 Room Air I & O 12/28/19 07:00 Intake Total 2360 ml Output Total 7280 ml Balance -4920 ml Capillary Refill : Less Than 3 SecondsLess Than 3 Seconds General Appearance: No Apparent Distress, Anxious HEENT: Normal ENT Inspection Neck: Normal Inspection, Supple Respiratory: Chest Non Tender, No Accessory Muscle Use, No Respiratory Distress Cardiovascular: Regular Rate, Rhythm Gastrointestinal: normal bowel sounds, soft, other (productive colostomy, incision c/d/i) Extremity: Normal Capillary Refill Neurologic/Psychiatric: Alert, Oriented x3 Skin: Normal Color, Warm/Dry Lymphatic: No Adenopathy Results Lab Laboratory Tests 12/28/19 05:00: White Blood Count 13.1H, Red Blood Count 2.88L, Hemoglobin 9.3L, Hematocrit 29L, Mean Corpuscular Volume 100H, Mean Corpuscular Hemoglobin 32, Mean Corpuscular Hemoglobin Concent 32, Red Cell Distribution Width 14.3, Platelet Count 636H, Mean Platelet Volume 9.3, Sodium Level 140, Potassium Level 3.7, Chloride Level 104, Carbon Dioxide Level 28, Anion Gap 8, Blood Urea Nitrogen 3L, Creatinine 0.60, Estimat Glomerular Filtration Rate > 60, BUN/Creatinine Ratio 5, Glucose Level 99, Calcium Level 8.1L, Magnesium Level 1.8 Assessment/Plan Assessment/Plan Assessment/Plan LLQ ABDOMINAL PAIN ACUTE DIVERTICULITIS LEUKOCYTOSIS HYPOKALEMIA HYPOMAGNESEMIA S/P laparoscopy with lysis of adhesions to exploration and liberation of left pelvic abscess with sigmoid resection end colostomy monitor K Magnesium normal Zosyn/flagyl IS 10x per hr lovenox scd's for dvt prophylaxis diet as tolerates, repeat labs in am work on diet and activity home soon Clinical Quality Measures DVT/VTE Risk/Contraindication: Risk Factor Score Per Nursin STEPHANY TELLEZ DO Dec 28, 2019 10:54
--- NOTE | 2019-12-28 12:30 | NUR ---
AMIE REMOVED PER ORDER FROM DR TELLEZ. PT TOLERATED WELL NO COMPLICATIONS NOTED. 15ML OUT SEROSANGUINEOUS DRAINAGE
--- NOTE | 2019-12-28 14:32 | NUR ---
"RD ASSESSMENT PMHx: HTN; hypercholesterolemia; GERD PT INTERACTION: Pt was awake and pleasant during nutrition assessment. Pt states she has been eating poorly since last assessment. Note avg PO intake 25% of meals, per chart review. Pt states issues with nausea, but not vomiting since last assessment. Pt states no issues with colostomy at this time. Note pt not currently on bowel regimen per chart review. Note pt currently on DYS3 Advanced diet. Note pt states no current issues with chewing/swallowing food. ABNORMAL NUTRITION-RELATED LAB VALUES LOW: BUN 3; Ca 8.1 HIGH: Est. kcal needs: 1575 kcal | 20 kcal/kg Est. Pro needs: 63 g Pro | 0.8 g Pro/kg PES STATEMENT: Inadequate oral intake (NI-2.1) related to loss of appetite | nausea as evidenced by pt interview | avg PO intake 25% of meals INTERVENTION: Continue with current diet order of DYS3 Advanced/Ground Meat. Pt would likely benefit from diet advanced to increase kcal intake. At this time, pt has no issues with chewing/swallowing food and does not appear to have a need for a DYS3 diet. Add Ensure Enlive (straw/van) to meals TID. Provides 350 kcal and 13 g Pro per serving. Will continue to follow and reassess as pt needs, intake, and status change. MONITOR/EVALUATE: PO Intake; Plan of Care; Hydration Status; Weight Status; Lab Values Teresa Dinero, MS, RD, LD"
--- NOTE | 2019-12-28 14:45 | NUR ---
Notice of Medicare Non Coverage presented, reviewed, signed and placed in patient chart. Patient voiced no intention to appeal and deny any needs or further questions at this time.
--- NOTE | 2019-12-28 17:40 | NUR ---
PT AMBULATED WITH STAND BY ASSIST APPROX. 400FT
[2019-12-28] MEDS: ENOXAPARIN 40 MG/0.4 ML (LOVENOX) SYR SC SCH (19:57)
[2019-12-28 20:00] VITALS: BP 128/82
[2019-12-29] MEDS: HYDROcodone/APAP 5 MG/325 MG (LORTAB) TAB PO PRN ×2 (00:05→13:13)
[2019-12-29 05:41] LABS: HEMOGLOBIN 9.4 G/DL (11.5-16.0); MEAN PLATELET VOLUME 9.4 FL (7.4-10.4); RED CELL DISTRIBUTION WIDTH 14.4 % (10.0-14.5); WHITE BLOOD COUNT 12.1 10^3/uL (4.3-11.0)
[2019-12-29 05:59] LABS: CHLORIDE 103 MMOL/L (98-107); POTASSIUM 3.9 MMOL/L (3.6-5.0); SODIUM 140 MMOL/L (135-145)
[2019-12-29 06:00] LABS: CALCIUM 8.2 MG/DL (8.5-10.1); GLUCOSE 95 MG/DL (70-105)
[2019-12-29 06:02] LABS: CARBON DIOXIDE 26 MMOL/L (21-32)
[2019-12-29] MEDS: KCL 10 MEQ TAB (MICRO K) PO SCH (06:03)
[2019-12-29 06:04] LABS: CREATININE SERUM 0.59 MG/DL (0.60-1.30); GFR ESTIMATED > 60
[2019-12-29 06:05] LABS: BUN/CREATININE RATIO 5
[2019-12-29 06:07] LABS: MAGNESIUM 1.8 MG/DL (1.6-2.4)
--- NOTE | 2019-12-29 06:45 | Progress Note ---
Subjective Date Seen by a Provider: Dec 29, 2019 Time Seen by a Provider: 06:50 Subjective/Events-last exam Patient reports every day she feels a little bit better. She didn't have to urinate as much last night and she was thankful as she slept better. Objective Exam Vital Signs Date Time Temp Pulse Resp B/P (MAP) Pulse Ox O2 Delivery O2 Flow Rate FiO2 12/28/19 20:50 94 Room Air 12/28/19 20:00 Room Air 12/28/19 20:00 37.2 80 18 128/82 (97) 95 Room Air 12/28/19 17:41 37.0 12/28/19 08:00 37.0 85 18 152/87 (108) 93 Room Air 12/28/19 08:00 Nasal Cannula 2.00 12/28/19 07:20 93 Room Air I & O 12/29/19 07:00 Intake Total 1440 ml Output Total 4975 ml Balance -3535 ml Capillary Refill : Less Than 3 SecondsLess Than 3 Seconds General Appearance: No Apparent Distress Neck: Full Range of Motion, Supple Respiratory: Lungs Clear Cardiovascular: Regular Rate, Rhythm Gastrointestinal: normal bowel sounds, soft; No distended, No guarding, No rebound Extremity: Normal Capillary Refill Neurologic/Psychiatric: Alert, Oriented x3 Skin: Normal Color Results Lab Laboratory Tests 12/29/19 05:04: White Blood Count 12.1H, Red Blood Count 2.93L, Hemoglobin 9.4L, Hematocrit 29L, Mean Corpuscular Volume 100H, Mean Corpuscular Hemoglobin 32, Mean Corpuscular Hemoglobin Concent 32, Red Cell Distribution Width 14.4, Platelet Count 692H, Mean Platelet Volume 9.4, Sodium Level 140, Potassium Level 3.9, Chloride Level 103, Carbon Dioxide Level 26, Anion Gap 11, Blood Urea Nitrogen 3L, Creatinine 0.59L, Estimat Glomerular Filtration Rate > 60, BUN/Creatinine Ratio 5, Glucose Level 95, Calcium Level 8.2L, Magnesium Level 1.8 Assessment/Plan Assessment/Plan Assess & Plan/Chief Complaint 1. Acute diverticulitis -Surgery managing and she is on Unasyn as well as Flagyl 2. Left-sided pelvic abscess. Also status post IUD removal (after in place 40 years) with D&C Dr. Lyles perform surgery and is managing 3. Status post laparoscopy with lysis of adhesions in the left lower abdomen/pelvis. Sigmoid resection and end colostomy -Dr. Sotomayor following. All appropriate DVT prevention is in place. -Pulmonary status appears well at this time 12/23 -Patient on liquids 12/24 -Patient clinically is feeling better. Slight nausea. Johnson catheter out. 12/28 -Suspect home soon possibly tomorrow or on December 30. -She is producing stool from colostomy 4. History of hypertension currently well controlled -Her lisinopril and hydrochlorothiazide has been initiated. 12/23 -Blood pressure is under well control. 12/24-blood pressure under good control 12/25 -one recorded bp slightly elevated, otherwise normal bp on lisinopril/hctz 12/28-well controlled 5. Anemia, post op and dilutional from IVFs' -monitoring 12/26-hemoglobin actually increased to 9.3 from 9.2 over the last 24 hours. 12/27-stable at 9.3 12/28-hemoglobin now 9.4 6. Hypokalemia -replacement 12/26 -potassium is within normal range today. 12/27-potassium stabilizes. Decrease IV fluids to 80 mL per hour Clinical Quality Measures DVT/VTE Risk/Contraindication: Risk Factor Score Per Nursin GLADIS GRIGGS MD Dec 29, 2019 06:45
[2019-12-29] MEDS: RT-ALBUTEROL SULF 2.5 MG/3 ML PRE-MIX VIAL INH SCH (07:02)
[2019-12-29 08:00] VITALS: BP 142/73
[2019-12-29] MEDS: HYDROCHLOROTHIAZIDE 25 MG (HCTZ) TAB PO SCH (08:14)
[2019-12-29] MEDS: lisINopril 20 MG (PRINIVIL) TABLET PO SCH (08:14)
[2019-12-29] MEDS: NS IV 1000 ML 1,000 ML IV SCH (08:15)
--- NOTE | 2019-12-29 08:30 | NUR ---
OSTOMY EDUCATION AND OSTOMY RESOURCES GIVEN TO PT.
--- NOTE | 2019-12-29 09:50 | Physical Therapy Daily Note ---
PT Daily Note-Current Subjective Patient reports she is feeling better with less pain. Agrees to PT. Pain Numeric Pain Scale: 5-Moderate Pain Location: Right Location Body Site: Side Pain Description: Pressure Mental Status Patient Orientation: Normal For Age Attachments: Colostomy/Ileostomy, IV Transfers SCALE: Activities may be completed with or without assistive devices. 4-Jurvzuhyoz-bhkkoxj completes the activity by him/herself with no assistance from a helper. 5-Set-up or Clean-up Assistance-helper sets up or cleans up; patient completes activity. [place] assists only prior to or following the activity. 4-Supervision or Touching Assistance-helper provides verbal cues and/or touching/steadying and/or contact guard assistance as patient completes activity. Assistance may be provided throughout the activity or intermittently. 3-Partial/Moderate Assistance-helper does LESS THAN HALF the effort. [place] lifts, holds or supports trunk or limbs, but provides less than half the effort. 2-Substantial/Maximal Assistance-helper does MORE THAN HALF the effort. [place] lifts or holds trunk or limbs and provides more than half the effort. 3-Tmqishycd-tjneci does ALL the effort. Patient does none of the effort to complete the activity. Or, the assistance of 2 or more helpers is required for the patient to complete the activity. If activity was not attempted, code reason: 7-Patient Refused. 9-Not Applicable-not attempted and the patient did not perform the activity before the current illness, exacerbation or injury. 10-Not Attempted due to Environmental Limitations-(lack of equipment, weather restraints, etc.). 88-Not Attempted due to Medical Conditions or Safety Concerns. Chair/Ejp-ib-Nxktg Xfer(QC): 6 Weight Bearing Right Lower Extremity: Right Weight Bearing/Tolerated Left Lower Extremity: Left Weight Bearing/Tolerated Gait Training Does the Patient Walk?: Yes Distance: 350' x 2 Walk 10 feet (QC): 6 Walk 50 ft with 2 Turns(QC): 6 Walk 150 ft (QC): 6 Gait Assistive Device: None slow, steady, functional gait sequence Exercises Standin way Ex=Flex, Abd, Ext Standing Reps: 20 Assessment Patient tolerated no AD on this date. PT instructed nursing staff to ambulate with patient without AD due to patient report she will not use one at home. Plan dismissal this week. PT Tester/Lift Trucker Goals Shelter Goals PT Shelter Goals Time Frame: Dec 30, 2019 Roll Left & Right (QC): 6 Sit to Lying (QC): 6 Lying-Sitting on Side/Bed(QC): 6 Sit to Stand (QC): 6 Chair/Ttu-vn-Drjqh Xfer(QC): 6 Toilet Transfer (QC): 6 Car Transfer (QC): 6 Does the Patient Walk: Yes Walk 10 feet (QC): 6 Walk 50ft with 2 Turns (QC): 6 Walk 150 ft (QC): 6 Walking 10ft on Uneven Surface: 6 1 Step (curb) (QC): 6 4 Steps (QC): 6 12 Steps (QC): 9 Picking up an Object (QC): 6 Does the Pt use WC or Scooter?: No Wheel 50 feet with 2 turns (QC: 9 Wheel 150 feet: 9 PT Plan Treatment/Plan Treatment Plan: Continue Plan of Care Treatment Plan: Bed Mobility, Education, Functional Activity Radha, Functional Strength, Gait, Safety, Therapeutic Exercise, Transfers Treatment Duration: Dec 30, 2019 Frequency: 6 times per week Estimated Hrs Per Day: .25 hour per day (to .5) Patient and/or Family Agrees t: Yes Time/GCodes Time In: 819 Time Out: 842 Total Billed Treatment Time: 23 Total Billed Treatment 1 visit FA 14 min EX 9 min JAISON QUINN PT Dec 29, 2019 09:50
[2019-12-29 10:32] VITALS: BP 142/73
--- NOTE | 2019-12-29 11:45 | NUR ---
ZOFRAN 4MG PO FOR C/O NAUSEA.
--- NOTE | 2019-12-29 13:15 | NUR ---
LORTAB 2 PO FOR PAIN.
[2019-12-29] MEDS ORDERED: HYDR-83 PO (14:00)
--- NOTE | 2019-12-29 14:09 | Discharge Summary ---
Discharge Summary Instructions for Patient Via [facility] [employer], Assessment/Instructions Follow up Appt: Make appointment for 2 week. Instructions: No lifting greater than 10 pounds. No strenuous activity. May shower in 24 hours, no tub bath or soaking. Use incentive spirometer at home as directed. No Smoking Skin/Wound Care: Colostomy information provided and home health nurse to continue education and management. Keep incision clean and dry. Symptoms to Report: Appetite Changes, Extremity Discoloration, Numbness/Tingling, Swelling Increased, Bleeding Excessive, Eyesight Changes, Pain Increased, Urine Color Change, Constipation(Persistent), Fever over 101 degree F, Pain/Pressure in chest, Urinating Difficulty, Cough Up/Vomit Blood, Heart Beat Irreg/Pounding, Pain/Pressure in jaw, Vaginal Bleeding Increase, Cramps in feet or legs, Lightheadedness, Pain/Pressure in shoulder, Diarrhea(Persistent), Memory Changes Suddenly, Questions/Concerns, Weight gain consecutive days, Dizziness/Fainting, Nausea/Vomiting, Shortness of Breath, Weight gain over 2 pounds If questions or concerns contact your physician Or seek help at emergency department. Physician to follow Patient: Светлана Discharge Diet for Home: Regular Diet Hospital Course Date of Admission: Dec 23, 2019 at 09:04 Admission Diagnosis : Family Physician/Provider: Mckenna Olmstead Aprn Date of Discharge: 12/29/19 Discharge Diagnosis: [ ] Hospital Course: [ ] Labs and Pending Lab Test: Laboratory Tests 12/29/19 05:04: White Blood Count 12.1H, Red Blood Count 2.93L, Hemoglobin 9.4L, Hematocrit 29L, Mean Corpuscular Volume 100H, Mean Corpuscular Hemoglobin 32, Mean Corpuscular Hemoglobin Concent 32, Red Cell Distribution Width 14.4, Platelet Count 692H, Mean Platelet Volume 9.4, Sodium Level 140, Potassium Level 3.9, Chloride Level 103, Carbon Dioxide Level 26, Anion Gap 11, Blood Urea Nitrogen 3L, Creatinine 0.59L, Estimat Glomerular Filtration Rate > 60, BUN/Creatinine Ratio 5, Glucose Level 95, Calcium Level 8.2L, Magnesium Level 1.8 Home Meds Active Hydrocodone-Acetamin 5-325 mg (Hydrocodone/Acetaminophen) 1 Each Tablet 1-2 Tab PO Q6HR PRN Doxycycline Monohydrate 100 Mg Capsule 100 Mg PO BID 7 Days Ibuprofen 600 Mg Tablet 600 Mg PO Q6H Reported Vitamin D3 (Cholecalciferol (Vitamin D3)) 25 Mcg Capsule 25 Mcg PO DAILY Vitamin E (Vitamin E Mixed) 1,000 Unit Capsule 1,000 Unit PO DAILY [Mood Free Ultra] 1 Cap PO DAILY Multivitamin 1 Each Tablet 1 Each PO DAILY Pantoprazole Sodium 40 Mg Tablet.dr 40 Mg PO DAILY Meloxicam 15 Mg Tablet 15 Mg PO DAILY Lisinopril-Hctz 20-25 mg Tab (Lisinopril/Hydrochlorothiazide) 1 Each Tablet 1 Each PO DAILY Atorvastatin Calcium 40 Mg Tablet 40 Mg PO DAILY Patient Allergies: Coded Allergies: No Known Drug Allergies (Unverified , 11/22/19) Height (Feet): 5 Height (Inches): 3.00 Weight (Pounds): 157 Weight (Ounces): 0.0 Home Health Need/Face to Face Date of Face to Face: Dec 29, 2019 Clinical Findings: Generalized weakness and fatigue, Pain with ambulation, Other-list in note (colostomy) I have seen Pt pexl-nf-ehtt: Yes Discharged To: Home Diagnosis/Conditions: Pelvic abscess sigmoid perforation s/p bhargav procedure Patient is Homebound due to: Muscle weakness, Pain w/ambulation Homebound Status Due to the above stated illness, injury or surgical procedure (medical condition or diagnosis) and associated clinical findings, the patient is homebound because of his/her inability to leave home except with aid of a supportive device and/or person AND leaving the home requires a considerable and taxing effort or is medically contraindicated. Pt req the following assistanc: Aid of another person Home Health Nursing Orders Home Health Services Order: Nursing Services (colostomy care) Certify Stmt I certify that this patient is under my care and that I, a nurse practitioner or a physician; a assistant project manager working with me, had a face to face encounter that - meets the physician face to face encounter requirements with this patient as dated. Discharge Physical Exam General: Alert, Oriented X3 Lungs: Normal Air Movement Heart: Regular Rate Abdomen: Soft, Other (colostomy productive, incision c/d/i) Extremities: No Tenderness/Swelling Skin: No Significant Lesion Neuro: Normal Speech Psych/Mental Status: Mental Status NL, Mood NL STEPHANY TELLEZ DO Dec 29, 2019 14:06
--- NOTE | 2019-12-29 15:55 | NUR ---
PT IN WC GETTING READY TO LEAVE AND REQUESTED RX FOR ZOFRAN. DR. TELLEZ NOTIFIED AND ORDER REC'D. ZOFRAN 4MG PO Q6H PRN NAUSEA #20 CALLED TO [facility]. DC'D PER WC WITH SO. RX AND INSTRUCTIONS AND VERBALIZED UNDERSTANDING.
--- NOTE | 2019-12-30 07:46 | Therapy Team Discharge Summary ---
Therapy Discharge Summary Discharge Recommendations Date of Discharge Dec 29, 2019 at 15:55 Physical Therapy 64 y.o. female, s/p abdominal surgery with colostomy placement, seen to address functional strength and mobility. Patient initially required FWW and assistance for ambulation and bed mobility due to abdominal pain. Patient progressed with treatment plan and dismissed to home with total independence with all gross motor skills and mobility. Patient was able to demonstrate independent bed mobility, transfers and ambulation without AD without difficulty. Patient attained all functional goals. 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 Goals PT Postage Machine Operator Goals Time Frame: Dec 30, 2019 Roll Left to Right (QC): 6 Sit to Lying (QC): 6 Lying-Sitting on Side/Bed(QC): 6 Sit to Stand (QC): 6 Chair/Vvz-qr-Pncux Xfer(QC): 6 Car Transfer (QC): 6 Does the Patient Walk: Yes Walk 10 feet (QC): 6 Walk 10ft-Uneven Surface(QC): 6 Walk 50ft with 2 Turns (QC): 6 Walk 150 ft (QC): 6 Does the Pt use WC or Scooter?: No Wheel 50 feet with 2 turns (QC: 9 1 Step (curb) (QC): 6 4 Steps (QC): 6 12 Steps (QC): 9 Picking up an Object (QC): 6 OT Postage Machine Operator Goals Postage Machine Operator Goals Toilet/Commode Transfer (QC): 6 1=Demonstrate adherence to instructed precautions during ADL tasks. 2=Patient will verbalize/demonstrate understanding of assistive devices/modifications for ADL. 3=Patient will improve strength/tolerance for activity to enable patient to perform ADL's. JAISON QUINN PT Dec 30, 2019 07:46
== END 2019-12-29 15:55 | disposition home or self-care (01) | DRG 950 ==
LOC: 4TH 09:04
PROVIDERS: ADMIT Surgery; ATTEND Surgery
DX: Z48.815 Encounter for surgical aftercare following surgery on the digestive system (principal); Z93.3 Colostomy status; I10 Essential (primary) hypertension; E87.6 Hypokalemia; E83.42 Hypomagnesemia; F17.210 Nicotine dependence, cigarettes, uncomplicated; D64.9 Anemia, unspecified
CPT/HCPCS: 36415; 80048; 83735; 85027; 94640; 94760

== ENCOUNTER 2020-01-26 01:52 | Inpatient (IN) | payer MEDICARE ==
[~2020-01-26] VITALS: Ht 160 cm; Wt 78.8 kg
[~2020-01-26 01:52] MED LIST changes: +HYDR-3812 PO
[2020-01-26] MEDS ORDERED: NS IV 1000 ML 1,000 ML ONE (02:28)
[2020-01-26] MEDS ORDERED: ACETAMINOPHEN 325 MG TABLET ONE (04:36)
[2020-01-26 07:29] VITALS: BP 91/57
--- NOTE | 2020-01-26 08:30 | NUR ---
PT STATED THAT HER INCISION WAS BLEEDING. THIS NURSE ASSESSED PT'S MIDLINE INCISION. INCISION APPEARED TO BE WELL APPROXIMATED AND HEALED TO THE DISTAL END WHERE IT APPEARED THAT THE INCISION HAD REOPENED WITH PURULENT SANGUINEOUS DRAINAGE FROM THE OPEN SITE. THIS RN APPLIED MILD PRESSURE WITH GAUZE. SITE APPEARED TO BE CLOTTING OFF, WITH MOVEMENT DRAINAGE INCREASED. THIS RN NOTIFIED DR. TELLEZ OF OPENING. DR. TELLEZ REQUESTED WOUND CULTURE BE OBTAINED AND TO KEEP GAUZE DRESSING APPLIED. THIS RN APPLIED DRESSING AND STATED TO PT TO AVOID MOVEMENT IF NECESSARY TO AVOID EXCESSIVE DRAINAGE.
[2020-01-26] MEDS ORDERED: ONDANSETRON 4 MG/2 ML (SDV) Z0FRAN IV PRN (10:00)
[2020-01-26] MEDS: ACETAMINOPHEN 325 MG TABLET PO PRN (10:45)
[2020-01-26] MEDS: PIPERACILLIN/TAZO 4.5 GM/NS 100 ML IV SCH ×4 (10:45→17:27)
--- NOTE | 2020-01-26 10:45 | NUR ---
WOUND DRESSING SATURATED WITH PURULENT SANGUINEOUS DRAINAGE AFTER PT GOT UP TO GO TO BATHROOM. THIS RN REAPPLIED DRESSING TO KEEP PRESSURE IN PLACE.
[2020-01-26] MEDS: NS IV 1000 ML 1,000 ML IV SCH ×2 (10:50→13:43)
[2020-01-26 12:00] VITALS: BP 115/65
[2020-01-26] MEDS ORDERED: PEG15DRO9 OU (12:21)
[2020-01-26] MEDS ORDERED: ACET325C7 PO (12:21)
[2020-01-26] MEDS ORDERED: VITA-244 PO (12:21)
[2020-01-26] MEDS ORDERED: DOCU-238 PO (12:21)
[2020-01-26] MEDS ORDERED: GLUC-203 PO (12:21)
[2020-01-26] MEDS ORDERED: IBUP-1773 PO (12:26)
--- NOTE | 2020-01-26 12:28 | NUR ---
SPOKE WITH THE PT (SHE HAD A MED LIST THAT I PUT ON HER CHART) AND CALLED [facility] TO COMPLETE THE MED REC 12-02-2019 ATORVASTATIN 40MG #90/90DS 12-02-2019 LISINOPRIL/HCTZ 20/25MG #90/90DS 01-07-2020 PANTOPRAZOLE 40MG #90/90DS 01-23-2020 IBUPROFEN 600MG #90 OTC MEDS: [employer] MOVE FREE VIT D VIT E TYLENOL VISINE DRY EYE DROPS DOCUSATE
--- NOTE | 2020-01-26 14:34 | Consultation - Surgery ---
NICOLETTEEL MED STUDENT 01/26/20 1434: History of Present Illness History of Present Illness Patient Consulted On(darren/time) 01/26/20 14:29 Date Seen by Provider: Jan 26, 2020 Time Seen by Provider: 13:45 History of Present Illness Pt had bowel resection 1 month ago and now presents with incisional bleeding. Incision site was found to be tender with erythema with sanguinous drainage. Co lostomy remains functioning properly with normal bowel function. Denies n/v, fever, chills, sob, chest pain. Allergies and Home Medications Allergies Coded Allergies: No Known Drug Allergies (Unverified , 11/22/19) Home Medications Acetaminophen 325 Mg Capsule, 650 MG PO Q6H PRN for PAIN-MILD (1-4), (Reported) Atorvastatin Calcium 40 Mg Tablet, 40 MG PO DAILY, (Reported) Cholecalciferol (Vitamin D3) 25 Mcg Capsule, 25 MCG PO DAILY, (Reported) Docusate Sodium 100 Mg Capsule, 200 MG PO HS PRN for CONSTIPATION-1ST LINE, (Reported) Glucosam/Chond/Hyalu/Cf Borate 1 Each Tablet, 1 EACH PO DAILY, (Reported) Ibuprofen 600 Mg Tablet, 600 MG PO Q6H PRN for PAIN-MILD, (Reported) Lisinopril/Hydrochlorothiazide 1 Each Tablet, 1 EACH PO DAILY, (Reported) Multivitamin 1 Each Tablet, 1 EACH PO DAILY, (Reported) Pantoprazole Sodium 40 Mg Tablet.dr, 40 MG PO DAILY, (Reported) Peg 400/Hypromellose/Glycerin 15 Ml Drops, 2 DROPS OU PRN PRN for DRY EYES, (Reported) Vitamin E (Dl,Tocopheryl Acet) 450 Mg Capsule, 450 MG PO DAILY, (Reported) Past Lnosnyn-Pbrfad-Ivvkxl Hx Patient Social History Type Used: Cigarettes 2nd Hand Smoke Exposure: Yes Recent Hopitalizations: Yes (November) Immunizations Up To Date Tetanus Booster (TDap): More than 5yrs PED Vaccines UTD: No Seasonal Allergies Seasonal Allergies: No Surgeries History of Surgeries: Yes (d and c) Respiratory History of Respiratory Disorde: No Respiratory Disorders: Pneumonia Cardiovascular History of Cardiac Disorders: No Cardiac Disorders: High Cholesterol, Hypertension Neurological History of Neurological Disord: No 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 System Hx 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 Disorders: No Sexually Transmitted Disease: No HIV/AIDS: No Female 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 Disorders: Denies 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 Genitourinary History of Genitourinary Disor: No Gastrointestinal History of Gastrointestinal Di: No Gastrointestinal Disorders: Gastroesophageal Reflux Musculoskeletal History of Musculoskeletal Dis: No Musculoskeletal Disorders: Arthritis, Chronic Back Pain Endocrine History of Endocrine Disorders: No HEENT History of HEENT Disorders: Yes (dry eye syndrome) Loss of Vision: Denies Hearing Impairment: Denies Cancer History of Cancer: No Psychosocial History of Psychiatric Problem: No Integumentary History of Skin or Integumenta: No Blood Transfusions History of Blood Disorders: No Adverse Reaction to a Blood Tr: No Family Medical History Significant Family History: No Pertinent Family Hx Family Medial History: Hypertension 19 MOTHER Review of Systems-General Constitutional: No chills, No diaphoresis EENTM: No blurred vision, No double vision Respiratory: No cough, No dyspnea on exertion Cardiovascular: No chest pain, No palpitations Gastrointestinal: abdominal pain (incisional); No constipation Genitourinary: No dysuria, No frequency Musculoskeletal: No muscle pain, No muscle stiffness, No muscle cramps Skin: No change in color, No change in hair/nails Psychiatric/Neurological: Denies Anxiety, Denies Depressed, Denies Emotional Problems Physical Exam-General Problems Physical Exam Vital Signs Vital Signs - First Documented 01/26/20 07:29 Temp 37.2 Pulse 85 Resp 18 B/P (MAP) 91/57 (68) Pulse Ox 94 O2 Delivery Room Air Capillary Refill : Less Than 3 Seconds General Appearance: WD/WN, no apparent distress HEENT: PERRL/EOMI, normal ENT inspection Neck: non-tender, supple Respiratory: no respiratory distress, no accessory muscle use Cardiovascular: regular rate, rhythm, no murmur Gastrointestinal: tenderness Back: normal inspection, no CVA tenderness, no vertebral tenderness Extremities: normal range of motion, non-tender Neurologic/Psychiatric: alert, normal mood/affect, oriented x 3 Skin: normal color, warm/dry Assessment/Plan Assessment/Plan Assessment/Plan surgical abscess secondary to hematoma formation wound culture abx wound care STEPHANY SOTOMAYOR DO 01/27/209: History of Present Illness History of Present Illness Date Seen by Provider: Jan 26, 2020 Time Seen by Provider: 14:34 History of Present Illness Patient is a 64 year old female who had previous pelvic abscess after retained IUD she was found to have a sigmoid colon perforation and had to have bhargav procedure. Patient has followed up in clinic postoperatively and has been doing okay. She began having more pain at the incision site midline and having fever up to about 102 degrees. Patient went to [facility] and had ct scan that demonstrated a fluid collection at midline consistent with hematoma. She was transferred here for further care. Patient began having draining a sanguineous fluid from the bottom of the incision. Elevated WBC. Pain at midline more of a discomfort. Denies fever sweats chills shortness of breath or chest pain at this time. Allergies and Home Medications Allergies Coded Allergies: No Known Drug Allergies (Unverified , 11/22/19) Home Medications Acetaminophen 325 Mg Capsule, 650 MG PO Q6H PRN for PAIN-MILD (1-4), (Reported) Atorvastatin Calcium 40 Mg Tablet, 40 MG PO DAILY, (Reported) Cholecalciferol (Vitamin D3) 25 Mcg Capsule, 25 MCG PO DAILY, (Reported) Docusate Sodium 100 Mg Capsule, 200 MG PO HS PRN for CONSTIPATION-1ST LINE, (Reported) Glucosam/Chond/Hyalu/Cf Borate 1 Each Tablet, 1 EACH PO DAILY, (Reported) Ibuprofen 600 Mg Tablet, 600 MG PO Q6H PRN for PAIN-MILD, (Reported) Lisinopril/Hydrochlorothiazide 1 Each Tablet, 1 EACH PO DAILY, (Reported) Multivitamin 1 Each Tablet, 1 EACH PO DAILY, (Reported) Pantoprazole Sodium 40 Mg Tablet.dr, 40 MG PO DAILY, (Reported) Peg 400/Hypromellose/Glycerin 15 Ml Drops, 2 DROPS OU PRN PRN for DRY EYES, (Reported) Vitamin E (Dl,Tocopheryl Acet) 450 Mg Capsule, 450 MG PO DAILY, (Reported) Patient Home Medication List Home Medication List Reviewed: Yes Past Swldnse-Lflffg-Qjuocu Hx Reviewed Nursing Assessment Reviewed/Agree w Nursing PMH: Yes Family Medical History Significant Family History: No Pertinent Family Hx Family Medial History: Hypertension 19 MOTHER Review of Systems-General Constitutional: No chills; fever EENTM: No blurred vision, No double vision Respiratory: No cough, No dyspnea on exertion Cardiovascular: No no symptoms reported, No chest pain Gastrointestinal: abdominal pain (incisional); No nausea, No vomiting Genitourinary: No decreased output, No discharge Musculoskeletal: No back pain, No joint pain Skin: change in color (slight erythema lower abdomen) Psychiatric/Neurological: Denies Anxiety, Denies Depressed All Other Systems Reviewed Negative Unless Noted: Yes (Negative excepted noted.) Physical Exam-General Problems Physical Exam General Appearance: WD/WN, no apparent distress HEENT: PERRL/EOMI, normal ENT inspection Neck: supple Respiratory: chest non-tender, no respiratory distress, no accessory muscle use Cardiovascular: regular rate, rhythm, no edema Gastrointestinal: soft, tenderness (lower abdomen, colostomy pink and productive) Rectal: deferred Back: no CVA tenderness, no vertebral tenderness Extremities: normal inspection, no pedal edema 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 as tested, no motor/sensory deficits, alert Skin: other (lower abdomen slight erythema lower abdomen, 1.5 cm opening serosang drainage) Lymphatic: no adenopathy Assessment/Plan Assessment/Plan Assessment/Plan cellulitis abdomen lower incision has serosanginous drainge consistent with hematoma with ct findings at outside facility will need ongoing wound care and colostomy care wound culture irrigate and pack wound continue IV abx Supervisory-Addendum Brief Verification & Attestation Participated in pt care: history, MDM, physical Personally performed: exam, history, MDM, supervision of care Care discussed with: Medical Student Procedures: n/a Results interpretation: Verified all documentation Verification and Attestation of Medical Student E/M Service A medical student performed and documented this service in my presence. I reviewed and verified all information documented by the medical student and made modifications to such information, when appropriate. I personally performed the physical exam and medical decision making. Stephany Sotomayor, Jan 26, 2020,17:30 EL WILL MED STUDENT Jan 26, 2020 14:34 STEPHANY SOTOMAYOR DO Jan 27, 2020 17:19
--- NOTE | 2020-01-26 15:10 | NUR ---
Pastoral care visit.
[2020-01-26 15:30] VITALS: BP 99/64
[2020-01-26] MEDS: HYDROcodone/APAP 7.5 MG/325 MG (LORTAB, LORCET PLUS) TABLET PO PRN ×2 (17:29→22:00)
[2020-01-26 20:00] VITALS: BP 91/52
[2020-01-27] VITALS: BP 97/55
[2020-01-27] MEDS: NS IV 1000 ML 1,000 ML IV SCH ×2 (00:13→15:39)
[2020-01-27] MEDS: HYDROcodone/APAP 7.5 MG/325 MG (LORTAB, LORCET PLUS) TABLET PO PRN ×3 (02:24→21:47)
[2020-01-27] MEDS: PIPERACILLIN/TAZO 4.5 GM/NS 100 ML IV SCH ×6 (02:24→17:35)
[2020-01-27 04:00] VITALS: BP 100/59
--- NOTE | 2020-01-27 07:11 | Consultation ---
History of Present Illness History of Present Illness Patient Consulted On(darren/time) 01/27/20 07:06 Date Seen by Provider: Jan 27, 2020 Time Seen by Provider: 07:00 History of Present Illness 64-year-old female is admitted to [facility] after transfer from [facility] for further management of incisional infection. Patient had partial bowel resection one month ago and had colostomy. She reports she has been doing wel she developed a 102 fever during the dye house helper of January 07 She lives in [facility] and went to the hospital there where she underwent CT of the abdomen. She was transferred here for further lower incisional site and antibi otics. She denies any excessive activity. She is unsure why the area of the incision opened up. Allergies and Home Medications Allergies Coded Allergies: No Known Drug Allergies (Unverified , 11/22/19) Home Medications Acetaminophen 325 Mg Capsule, 650 MG PO Q6H PRN for PAIN-MILD (1-4), (Reported) Atorvastatin Calcium 40 Mg Tablet, 40 MG PO DAILY, (Reported) Cholecalciferol (Vitamin D3) 25 Mcg Capsule, 25 MCG PO DAILY, (Reported) Docusate Sodium 100 Mg Capsule, 200 MG PO HS PRN for CONSTIPATION-1ST LINE, (Reported) Glucosam/Chond/Hyalu/Cf Borate 1 Each Tablet, 1 EACH PO DAILY, (Reported) Ibuprofen 600 Mg Tablet, 600 MG PO Q6H PRN for PAIN-MILD, (Reported) Lisinopril/Hydrochlorothiazide 1 Each Tablet, 1 EACH PO DAILY, (Reported) Multivitamin 1 Each Tablet, 1 EACH PO DAILY, (Reported) Pantoprazole Sodium 40 Mg Tablet.dr, 40 MG PO DAILY, (Reported) Peg 400/Hypromellose/Glycerin 15 Ml Drops, 2 DROPS OU PRN PRN for DRY EYES, (Reported) Vitamin E (Dl,Tocopheryl Acet) 450 Mg Capsule, 450 MG PO DAILY, (Reported) Patient Home Medication List Home Medication List Reviewed: Yes Past Snwwzkf-Epsfpt-Vvqlts Hx Patient Social History Alcohol Beverage of Choice: Wine Type Used: Cigarettes 2nd Hand Smoke Exposure: Yes Recent Hopitalizations: Yes (November) Immunizations Up To Date Tetanus Booster (TDap): More than 5yrs PED Vaccines UTD: No Seasonal Allergies Seasonal Allergies: No Past Medical History Surgeries: Yes (d and c) Respiratory: No Pneumonia Currently Using CPAP: No Currently Using BIPAP: No Cardiac: No High Cholesterol, Hypertension Neurological: No 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 Disorders: No Female 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 Disorders: Denies 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 Sexually Transmitted Disease: No HIV/AIDS: No Genitourinary: No Gastrointestinal: No Gastroesophageal Reflux Musculoskeletal: No Arthritis, Chronic Back Pain Endocrine: No HEENT: Yes (dry eye syndrome) Loss of Vision: Denies Hearing Impairment: Denies Cancer: No Psychosocial: No Integumentary: No Blood Disorders: No Adverse Reaction/Blood Tranf: No Family Medical History Hypertension 19 MOTHER No Pertinent Family Hx Review of Systems-General Constitutional: see HPI Physical Exam-General Problems Physical Exam Vital Signs Vital Signs - First Documented 01/26/20 07:29 Temp 37.2 Pulse 85 Resp 18 B/P (MAP) 91/57 (68) Pulse Ox 94 O2 Delivery Room Air Capillary Refill : Less Than 3 Seconds General Appearance: no apparent distress HEENT: pharynx normal Neck: non-tender, full range of motion Respiratory: lungs clear Cardiovascular: regular rate, rhythm Gastrointestinal: soft, tenderness (noted along the lower aspect of the midline incision just right of the umbilicus caudally. Currently covered) Rectal: deferred Back: normal inspection Assessment/Plan Assessment/Plan Admission Diagnosis/Plan 1. Wound infection -Dr. Sotomayor attending physician -agree with Zosyn started yesterday -Appropriate packing performed -review CT of abdomen from [place]. 2. Hypertensioncurrently normotensive -Will initiate lisinopril if needed for 3. Hyperlipidemia -Will hold on her statin medication for now Admission Status: Inpatient Order (span 2 midnights) Reason for Inpatient Admission: wound care previous incision right lower abdomen following colostomy. Antibiotics. GLADIS GRIGGS MD Jan 27, 2020 07:11
[2020-01-27 07:27] VITALS: BP 112/57
--- NOTE | 2020-01-27 07:34 | Progress Note - Surgery ---
EL WILL MED STUDENT 01/27/20 0734: Subjective Date Seen by a Provider: Jan 27, 2020 Time Seen by a Provider: 07:20 Subjective/Events-last exam Pt more comfortable than yesterday and in NAD. Incision site still draining sanguinous contents, but reduced from yesterday. Lower abdomen feels firm. Tenderness at incision site reduced from yesterday and she describes it as a soreness today. Denies n/v, fever, chills, sob, chest pain. Review of Systems General: No Chills, No Night Sweats HEENT: No Head Aches, No Visual Changes Pulmonary: No Dyspnea, No Cough Cardiovascular: No: Chest Pain, Palpitations Gastrointestinal: No: Nausea, Vomiting Genitourinary: No Dysuria, No Frequency Musculoskeletal: No: neck pain, shoulder pain Neurological: No: Weakness, Numbness Objective Exam Vital Signs Date Time Temp Pulse Resp B/P (MAP) Pulse Ox O2 Delivery O2 Flow Rate FiO2 01/27/20 04:00 36.6 76 18 100/59 (73) 95 Room Air 01/27/20 00:00 36.4 74 18 97/55 (69) 94 Room Air 01/26/20 20:15 Room Air 01/26/20 20:00 36.8 71 18 91/52 (65) 97 Room Air 01/26/20 15:30 37.1 77 18 99/64 (76) 98 Room Air 01/26/20 12:00 36.6 81 18 115/65 (82) 96 Room Air I & O 01/27/20 07:00 Intake Total 1110 ml Output Total 1000 ml Balance 110 ml Capillary Refill : Less Than 3 Seconds General Appearance: No Apparent Distress, WD/WN HEENT: PERRL/EOMI, Normal ENT Inspection Neck: Full Range of Motion, Normal Inspection Respiratory: Chest Non Tender, No Accessory Muscle Use, No Respiratory Distress Cardiovascular: Regular Rate, Rhythm, No Murmur Gastrointestinal: soft, tenderness (noted along the lower aspect of the midline incision just right of the umbilicus caudally. Currently covered) Extremity: Normal Inspection, Non Tender Neurologic/Psychiatric: Alert, Oriented x3, No Motor/Sensory Deficits, Normal Mood/Affect Skin: Normal Color, Warm/Dry Assessment/Plan Assessment/Plan Assessment/Plan surgical abscess secondary to hematoma formation abx wound care repeat CT STEPHANY SOTOMAYOR DO 01/28/20 1042: Subjective Subjective/Events-last exam Feeling better. Less serosang drainage. Less tender. Tolerating clears. Colostomy output good. Denies n/v fever sweats chills shortness of breath or chest pain. Objective Exam General Appearance: No Apparent Distress, WD/WN HEENT: PERRL/EOMI, Normal ENT Inspection Neck: Full Range of Motion, Normal Inspection Respiratory: Chest Non Tender, No Accessory Muscle Use, No Respiratory Distress Cardiovascular: Regular Rate, Rhythm Gastrointestinal: soft, tenderness (noted along the lower aspect of the midline incision just right of the umbilicus caudally. sero sang drainage, less erythema lower abdomen) Extremity: Normal Inspection, Non Tender Neurologic/Psychiatric: Alert, Oriented x3 Skin: Normal Color, Warm/Dry (erythema lower abdomen) Lymphatic: No Adenopathy Assessment/Plan Assessment/Plan Assessment/Plan cellulitis abdomen lower incision with open wound has serosang drainge consistent with hematoma with ct findings at outside facility will need ongoing wound care and colostomy care wound culture irrigate and pack wound continue IV abx advance diet Supervisory-Addendum Brief Verification & Attestation Participated in pt care: history, MDM, physical Personally performed: exam, history, MDM, supervision of care Care discussed with: Medical Student Procedures: n/a Results interpretation: Verified all documentation Verification and Attestation of Medical Student E/M Service A medical student performed and documented this service in my presence. I reviewed and verified all information documented by the medical student and made modifications to such information, when appropriate. I personally performed the physical exam and medical decision making. Stephany Sotomayor, Jan 27, 2020,19:54 EL WILL MED STUDENT Jan 27, 2020 07:34 STEPHANY SOTOMAYOR DO Jan 28, 2020 10:42
[2020-01-27 09:02] LABS: HEMOGLOBIN 8.8 G/DL (11.5-16.0); MEAN PLATELET VOLUME 9.3 FL (7.4-10.4); RED CELL DISTRIBUTION WIDTH 13.5 % (10.0-14.5); WHITE BLOOD COUNT 12.2 10^3/uL (4.3-11.0)
[2020-01-27 09:27] LABS: BUN/CREATININE RATIO 10; CALCIUM 8.3 MG/DL (8.5-10.1); CARBON DIOXIDE 25 MMOL/L (21-32); CHLORIDE 104 MMOL/L (98-107); CREATININE SERUM 0.71 MG/DL (0.60-1.30); GFR ESTIMATED > 60; GLUCOSE 111 MG/DL (70-105); MAGNESIUM 1.3 MG/DL (1.6-2.4); POTASSIUM 2.9 MMOL/L (3.6-5.0); SODIUM 138 MMOL/L (135-145)
[2020-01-27] MEDS: POTASSIUM CL 10MEQ/50ML IVPB 50 ML IV SCH (10:58)
[2020-01-27] MEDS: MAGNESIUM 1 GM/100 ML IVPB 100 ML IV SCH ×5 (10:58→13:26)
[2020-01-27] MEDS: KCL 20 MEQ TAB (K-DUR) PO SCH ×4 (10:59→15:37)
[2020-01-27 12:39] VITALS: BP 123/65
--- NOTE | 2020-01-27 14:35 | NUR ---
"RD ASSESSMENT PMHx: HTN; hypercholesterolemia; GERD PT INTERACTION: Pt was awake and pleasant during nutrition assessment. Pt states current appetite is good. Note PO intake 25% x1meal, per chart review. Pt states following a regular diet at home, and has no issues with chewing/swallowing food. Pt states no recent issues with nausea, vomiting, constipation, or diarrhea. Note pt has colostomy and currently has no issues with output. Note pt not currently on bowel regimen per chart review. Pt states recent 15# wt loss, but unsure of timeframe. Note recent 9# wt loss x6w, per chart review. Note presence of wound (abd incision), per chart review. ABNORMAL NUTRITION-RELATED LAB VALUES LOW: K 2.9; Ca 8.3; Mg 1.3 HIGH: glu 111; Est. kcal needs: 1500 kcal | 20 kcal/kg Est. Pro needs: 90 g | 1.2 g Pro/kg PES STATEMENT: Inadequate oral intake (NI-2.1) related to loss of appetite as evidenced by pt interview | PO intake 25% x1meal Inadequate protein intake (NI-5.6.1) related to increased protein needs as evidenced by presence of wound (abd incision) INTERVENTION: Continue with current diet order of Regular diet. Pt may benefit from nutrition supplementation if PO intake declines. Will continue to follow and reassess as pt needs, intake, and status change. MONITOR/EVALUATE: PO Intake; Plan of Care; Hydration Status; Weight Status; Lab Values Teresa Dinero, MS, RD, LD"
[2020-01-27 15:50] VITALS: BP 167/77
[2020-01-27] MEDS: ACETAMINOPHEN 325 MG TABLET PO PRN (17:35)
[2020-01-27 20:07] VITALS: BP 105/54
[2020-01-28] VITALS: BP 102/58
[2020-01-28] MEDS: NS IV 1000 ML 1,000 ML IV SCH ×2 (01:16→03:36)
[2020-01-28] MEDS: PIPERACILLIN/TAZO 4.5 GM/NS 100 ML IV SCH ×6 (02:34→18:31)
--- NOTE | 2020-01-28 03:49 | NUR ---
ASSISTED PT TO BATHROOM AT THIS TIME. DRESSING SATURATED WITH SANGUINEOUS DRAINAGE. DRESSING CHANGED PER PATIENT REQUEST. ALL NEEDS MET AT THIS TIME-- WILL CONTINUE TO MONITOR.
[2020-01-28 04:00] VITALS: BP 126/67
[2020-01-28] MEDS: fentaNYL INJECTION 100 MCG/2 ML AMP IV PRN (05:51)
[2020-01-28 07:26] LABS: BUN/CREATININE RATIO 9; CALCIUM 8.2 MG/DL (8.5-10.1); CARBON DIOXIDE 25 MMOL/L (21-32); CHLORIDE 108 MMOL/L (98-107); CREATININE SERUM 0.67 MG/DL (0.60-1.30); GFR ESTIMATED > 60; GLUCOSE 96 MG/DL (70-105); PHOSPHORUS 2.7 MG/DL (2.3-4.7); POTASSIUM 4.3 MMOL/L (3.6-5.0); SODIUM 141 MMOL/L (135-145)
--- NOTE | 2020-01-28 07:36 | Progress Note ---
Subjective Date Seen by a Provider: Jan 28, 2020 Time Seen by a Provider: 07:25 Subjective/Events-last exam Patient in good spirits. No abdominal pain. Had a headache this am. Wound packing continues. Objective Exam Vital Signs Date Time Temp Pulse Resp B/P (MAP) Pulse Ox O2 Delivery O2 Flow Rate FiO2 01/28/20 04:00 36.4 82 18 126/67 (86) 96 Room Air 01/28/20 00:00 37.1 77 18 102/58 (73) 97 Room Air 01/27/20 20:07 37.1 76 18 105/54 (71) 98 Room Air 01/27/20 20:00 Room Air 01/27/20 15:50 36.9 74 19 167/77 (107) 97 Room Air 01/27/20 12:39 36.6 84 18 123/65 (84) 97 Room Air 01/27/20 10:56 Room Air I & O 01/28/20 07:00 Intake Total 3150 ml Output Total 2200 ml Balance 950 ml Capillary Refill : Less Than 3 Seconds General Appearance: No Apparent Distress Respiratory: Lungs Clear Cardiovascular: Regular Rate, Rhythm Gastrointestinal: soft, other (wound packed and draining clear slightly pink fluid) Results Lab Laboratory Tests 01/27/20 08:56: White Blood Count 12.2H, Red Blood Count 2.81L, Hemoglobin 8.8L, Hematocrit 28L, Mean Corpuscular Volume 98, Mean Corpuscular Hemoglobin 31, Mean Corpuscular Hemoglobin Concent 32, Red Cell Distribution Width 13.5, Platelet Count 381, Mean Platelet Volume 9.3, Sodium Level 138, Potassium Level 2.9L, Chloride Level 104, Carbon Dioxide Level 25, Anion Gap 9, Blood Urea Nitrogen 7, Creatinine 0.71, Estimat Glomerular Filtration Rate > 60, BUN/Creatinine Ratio 10, Glucose Level 111H, Calcium Level 8.3L, Magnesium Level 1.3L 01/27/20 19:40: Potassium Level 4.1 01/28/20 06:07: Sodium Level 141, Potassium Level 4.3, Chloride Level 108H, Carbon Dioxide Level 25, Anion Gap 8, Blood Urea Nitrogen 6L, Creatinine 0.67, Estimat Glomerular Filtration Rate > 60, BUN/Creatinine Ratio 9, Glucose Level 96, Calcium Level 8.2L, Magnesium Level 2.0, Phosphorus Level 2.7 Microbiology 01/26/20 Gram Stain - Final, Resulted 01/26/20 Wound Culture - Preliminary, Resulted Mixed Bacterial Ena With Gram Negative Bacillus 1 Assessment/Plan Assessment/Plan Assess & Plan/Chief Complaint 1. Wound infection -Dr. Sotomayor attending physician -agree with Zosyn started yesterday -Appropriate packing performed -review CT of abdomen from [place]. 01/27 -GNR from wound culture -day #3 Zosyn -packing of wound continues -check cbc in the am 2. Hypertensioncurrently normotensive -Will initiate lisinopril if needed for 01/28 -BP normal without lisinopril for now 3. Hyperlipidemia -Will hold on her statin medication for now GLADIS GRIGGS MD Jan 28, 2020 07:36
[2020-01-28] MEDS: KCL 20 MEQ TAB (K-DUR) PO SCH (07:40)
[2020-01-28] MEDS: MAGNESIUM 1 GM/100 ML IVPB 100 ML IV SCH (07:40)
[2020-01-28] MEDS: POTASSIUM CL 10MEQ/50ML IVPB 50 ML IV SCH (07:40)
--- NOTE | 2020-01-28 07:58 | Progress Note - Surgery ---
EL WILL MED STUDENT 01/28/20 0758: Subjective Date Seen by a Provider: Jan 28, 2020 Time Seen by a Provider: 07:30 Subjective/Events-last exam Pt appeared comfortable in NAD eating breakfast. Claims she has been tolerating normal diet well. Reports normal flatulence and bowel function. Tenderness and erythema around the incision site has reduced since yesterday. Drainage remains unchanged and is serosenguinous. Hypotension resolved. Denies n/v, fever, chills, sob, chest pain. Review of Systems General: No Chills, No Night Sweats HEENT: No Head Aches, No Visual Changes Pulmonary: No Dyspnea, No Cough Cardiovascular: No: Chest Pain, Palpitations Gastrointestinal: Abdominal Pain; No: Nausea, Vomiting Genitourinary: No Dysuria, No Frequency Musculoskeletal: No: neck pain, shoulder pain Neurological: No: Weakness, Numbness Objective Exam Vital Signs Date Time Temp Pulse Resp B/P (MAP) Pulse Ox O2 Delivery O2 Flow Rate FiO2 01/28/20 04:00 36.4 82 18 126/67 (86) 96 Room Air 01/28/20 00:00 37.1 77 18 102/58 (73) 97 Room Air 01/27/20 20:07 37.1 76 18 105/54 (71) 98 Room Air 01/27/20 20:00 Room Air 01/27/20 15:50 36.9 74 19 167/77 (107) 97 Room Air 01/27/20 12:39 36.6 84 18 123/65 (84) 97 Room Air 01/27/20 10:56 Room Air I & O 01/28/20 07:00 Intake Total 3150 ml Output Total 2200 ml Balance 950 ml Capillary Refill : Less Than 3 Seconds General Appearance: No Apparent Distress, WD/WN HEENT: PERRL/EOMI, Normal ENT Inspection Neck: Full Range of Motion, Normal Inspection, Non Tender Respiratory: Lungs Clear, No Respiratory Distress Cardiovascular: Regular Rate, Rhythm, No JVD Gastrointestinal: soft, tenderness, other (wound packed and draining clear slightly pink fluid) Extremity: Normal Inspection, Non Tender Neurologic/Psychiatric: Alert, Oriented x3, No Motor/Sensory Deficits, Normal Mood/Affect Skin: Normal Color, Warm/Dry Results Lab Laboratory Tests 01/27/20 08:56: White Blood Count 12.2H, Red Blood Count 2.81L, Hemoglobin 8.8L, Hematocrit 28L, Mean Corpuscular Volume 98, Mean Corpuscular Hemoglobin 31, Mean Corpuscular Hemoglobin Concent 32, Red Cell Distribution Width 13.5, Platelet Count 381, Mean Platelet Volume 9.3, Sodium Level 138, Potassium Level 2.9L, Chloride Level 104, Carbon Dioxide Level 25, Anion Gap 9, Blood Urea Nitrogen 7, Creatinine 0.71, Estimat Glomerular Filtration Rate > 60, BUN/Creatinine Ratio 10, Glucose Level 111H, Calcium Level 8.3L, Magnesium Level 1.3L 01/27/20 19:40: Potassium Level 4.1 01/28/20 06:07: Sodium Level 141, Potassium Level 4.3, Chloride Level 108H, Carbon Dioxide Level 25, Anion Gap 8, Blood Urea Nitrogen 6L, Creatinine 0.67, Estimat Glomerular Filtration Rate > 60, BUN/Creatinine Ratio 9, Glucose Level 96, Calcium Level 8.2L, Magnesium Level 2.0, Phosphorus Level 2.7 Microbiology 01/26/20 Gram Stain - Final, Resulted 01/26/20 Wound Culture - Preliminary, Resulted Mixed Bacterial Ena With Gram Negative Bacillus 1 Assessment/Plan Assessment/Plan Assessment/Plan wound infection continue abx repack wound today monitor labs and physical changes STEPHANY SOTOMAYOR DO 01/28/20 1654: Subjective Subjective/Events-last exam Tolerating diet. Colostomy productive. Feeling better, less pain lower abdomen. Drianage is serosenguinous and seems to be decreasing. On Zosyn. Patient denies n/v fever sweats chills shortness of breath or chest pain. Has headache. Objective Exam General Appearance: No Apparent Distress, WD/WN HEENT: PERRL/EOMI, Normal ENT Inspection Neck: Full Range of Motion, Normal Inspection, Non Tender Respiratory: Chest Non Tender, No Accessory Muscle Use, No Respiratory Distress Cardiovascular: Regular Rate, Rhythm, No Edema, No JVD Gastrointestinal: soft, tenderness (minimal lower abdomen), other (wound packed and draining clear slightly pink fluid (serosenguinous)) Extremity: Normal Inspection, Non Tender Neurologic/Psychiatric: Alert, Oriented x3, No Motor/Sensory Deficits, Normal Mood/Affect Skin: Normal Color, Erythema (less small skin opening at bottom of scar) Lymphatic: No Adenopathy Assessment/Plan Assessment/Plan Assessment/Plan cellulitis abdomen lower incision with open wound has serosang drainge consistent with hematoma with ct findings at outside faci lity will need ongoing wound care and colostomy care wound culture irrigate and pack wound continue IV abx diet as tolerates will need home health at home as she did prior to admission for wound care as well as colostomy care [facility] thursday Supervisory-Addendum Brief Verification & Attestation Participated in pt care: history, MDM, physical Personally performed: exam, history, MDM, supervision of care Care discussed with: Medical Student Procedures: n/a Results interpretation: Verified all documentation Verification and Attestation of Medical Student E/M Service A medical student performed and documented this service in my presence. I reviewed and verified all information documented by the medical student and made modifications to such information, when appropriate. I personally performed the physical exam and medical decision making. Stephany Sotomayor, Jan 28, 2020,16:54 EL WILL MED STUDENT Jan 28, 2020 07:58 STEPHANY SOTOMAYOR DO Jan 28, 2020 16:54
[2020-01-28 08:25] VITALS: BP 121/71
[2020-01-28] MEDS: HYDROcodone/APAP 7.5 MG/325 MG (LORTAB, LORCET PLUS) TABLET PO PRN ×2 (12:05→19:55)
[2020-01-28 16:00] VITALS: BP 109/68
[2020-01-28 23:52] VITALS: BP 113/56
[2020-01-29] MEDS: PIPERACILLIN/TAZO 4.5 GM/NS 100 ML IV SCH ×6 (01:58→17:58)
[2020-01-29] MEDS: HYDROcodone/APAP 7.5 MG/325 MG (LORTAB, LORCET PLUS) TABLET PO PRN ×3 (01:58→20:31)
--- NOTE | 2020-01-29 02:45 | NUR ---
Gave report to ALEC Pearson
[2020-01-29] MEDS: NS IV 1000 ML 1,000 ML IV SCH ×2 (05:58→15:35)
[2020-01-29 06:41] LABS: BASOPHILS % (AUTO) 0 % (0-10); EOSINOPHILS # (AUTO) 0.4 10^3/uL (0.0-0.3); EOSINOPHILS % (AUTO) 5 % (0-10); HEMATOCRIT 27 % (35-52); HEMOGLOBIN 8.5 G/DL (11.5-16.0); LYMPHOCYTES # (AUTO) 1.8 X 10^3 (1.0-4.0); LYMPHOCYTES % (AUTO) 24 % (12-44); MEAN CORPUSCULAR HEMOGLOBIN 31 PG (25-34); MEAN CORPUSCULAR HGB CONC 32 G/DL (32-36); MEAN CORPUSCULAR VOLUME 99 FL (80-99); MEAN PLATELET VOLUME 9.1 FL (7.4-10.4); MONOCYTES # (AUTO) 0.5 X 10^3 (0.0-1.0); MONOCYTES % (AUTO) 7 % (0-12); NEUTROPHILS # (AUTO) 4.6 X 10^3 (1.8-7.8); NEUTROPHILS % (AUTO) 64 % (42-75); PLATELET COUNT 445 10^3/uL (130-400); RED CELL DISTRIBUTION WIDTH 13.6 % (10.0-14.5); WHITE BLOOD COUNT 7.3 10^3/uL (4.3-11.0)
[2020-01-29 07:00] LABS: BUN/CREATININE RATIO 10; CALCIUM 8.5 MG/DL (8.5-10.1); CARBON DIOXIDE 25 MMOL/L (21-32); CHLORIDE 106 MMOL/L (98-107); GFR ESTIMATED > 60; GLUCOSE 97 MG/DL (70-105); MAGNESIUM 1.7 MG/DL (1.6-2.4); PHOSPHORUS 3.3 MG/DL (2.3-4.7); POTASSIUM 4.1 MMOL/L (3.6-5.0); SODIUM 140 MMOL/L (135-145)
[2020-01-29] MEDS: POTASSIUM CL 10MEQ/50ML IVPB 50 ML IV SCH (07:26)
[2020-01-29] MEDS: KCL 20 MEQ TAB (K-DUR) PO SCH (07:27)
[2020-01-29] MEDS: MAGNESIUM 1 GM/100 ML IVPB 100 ML IV SCH ×2 (07:32→09:02)
[2020-01-29 07:40] VITALS: BP 133/60
--- NOTE | 2020-01-29 07:51 | Progress Note ---
Subjective Date Seen by a Provider: Jan 29, 2020 Time Seen by a Provider: 07:45 Subjective/Events-last exam Overall feeling better. Tolerating regular diet. Minimal discomfort to the lower abdomen. Objective Exam Vital Signs Date Time Temp Pulse Resp B/P (MAP) Pulse Ox O2 Delivery O2 Flow Rate FiO2 01/29/20 07:36 36.2 01/28/20 23:52 36.2 75 18 113/56 (75) 97 Room Air 01/28/20 20:20 Room Air 01/28/20 16:00 36.3 64 18 109/68 (82) 97 Room Air 01/28/20 08:25 37.0 74 18 121/71 (88) 94 Room Air 01/28/20 08:00 Room Air I & O 01/29/20 07:00 Intake Total 2678 ml Output Total 200 ml Balance 2478 ml Capillary Refill : Less Than 3 Seconds General Appearance: No Apparent Distress Respiratory: Chest Non Tender Cardiovascular: Regular Rate, Rhythm Gastrointestinal: normal bowel sounds, non tender, soft, other (packing in wound. Minimal surrounding erthyema) Results Lab Laboratory Tests 01/29/20 06:28: White Blood Count 7.3, Red Blood Count 2.74L, Hemoglobin 8.5L, Hematocrit 27L, Mean Corpuscular Volume 99, Mean Corpuscular Hemoglobin 31, Mean Corpuscular Hemoglobin Concent 32, Red Cell Distribution Width 13.6, Platelet Count 445H, Mean Platelet Volume 9.1, Neutrophils (%) (Auto) 64, Lymphocytes (%) (Auto) 24, Monocytes (%) (Auto) 7, Eosinophils (%) (Auto) 5, Basophils (%) (Auto) 0, Neutrophils # (Auto) 4.6, Lymphocytes # (Auto) 1.8, Monocytes # (Auto) 0.5, Eosinophils # (Auto) 0.4H, Basophils # (Auto) 0.0, Sodium Level 140, Potassium Level 4.1, Chloride Level 106, Carbon Dioxide Level 25, Anion Gap 9, Blood Urea Nitrogen 7, Creatinine 0.70, Estimat Glomerular Filtration Rate > 60, BU N/Creatinine Ratio 10, Glucose Level 97, Calcium Level 8.5, Phosphorus Level 3.3, Magnesium Level 1.7 Microbiology 01/26/20 Gram Stain - Final, Resulted 01/26/20 Wound Culture - Preliminary, Resulted Mixed Bacterial Ena With Probable Klebsiella/Enterobact Proteus Group Enterococcus species Assessment/Plan Assessment/Plan Assess & Plan/Chief Complaint 1. Wound infection -Dr. Sotomayor attending physician -agree with Zosyn started yesterday -Appropriate packing performed -review CT of abdomen from [place]. 01/27 -GNR from wound culture -day #3 Zosyn -packing of wound continues -check cbc in the am 01/29 -day #4 Zosyn -enterococcus species on culture -suspect home in the am of 01/29 with packings and remaining healing at home. 2. Hypertensioncurrently normotensive -Will initiate lisinopril if needed for 01/28 -BP normal without lisinopril for now 01/29 -most likely will restate lisinopril O/P if elevated. She has quit cigarettes and is hopeful she may be able to go off the bp med. 3. Hyperlipidemia -Will hold on her statin medication for now GLADIS GRIGGS MD Jan 29, 2020 07:51
--- NOTE | 2020-01-29 07:53 | Progress Note - Surgery ---
NICOLETTEEL MED STUDENT 01/29/20 0753: Subjective Date Seen by a Provider: Jan 29, 2020 Time Seen by a Provider: 07:35 Subjective/Events-last exam Pt comfortable in NAD sitting up in bed. Says her pain is still improving. Wound has continued draining serosenguinous fluid. Amount of drainage unchanged, but tenderness at the site has decreased. Erythema improved. Denies n/v, fever, chills, sob, chest pain. Review of Systems General: No Chills, No Night Sweats HEENT: No Head Aches, No Visual Changes Pulmonary: No Dyspnea, No Cough Cardiovascular: No: Chest Pain, Palpitations Gastrointestinal: Abdominal Pain; No: Nausea, Vomiting Genitourinary: No Dysuria, No Frequency Musculoskeletal: No: neck pain, shoulder pain Neurological: No: Weakness, Numbness Objective Exam Vital Signs Date Time Temp Pulse Resp B/P (MAP) Pulse Ox O2 Delivery O2 Flow Rate FiO2 01/29/20 07:40 36.6 67 18 133/60 (84) 95 Room Air 01/29/20 07:36 36.2 01/28/20 23:52 36.2 75 18 113/56 (75) 97 Room Air 01/28/20 20:20 Room Air 01/28/20 16:00 36.3 64 18 109/68 (82) 97 Room Air 01/28/20 08:25 37.0 74 18 121/71 (88) 94 Room Air 01/28/20 08:00 Room Air I & O 01/29/20 07:00 Intake Total 2678 ml Output Total 200 ml Balance 2478 ml Capillary Refill : Less Than 3 Seconds General Appearance: No Apparent Distress, WD/WN HEENT: PERRL/EOMI, Normal ENT Inspection Neck: Full Range of Motion, Normal Inspection, Non Tender Respiratory: Chest Non Tender, No Accessory Muscle Use, No Respiratory Distress Cardiovascular: Regular Rate, Rhythm, No Edema, No JVD Gastrointestinal: soft, tenderness (minimal lower abdomen), other (wound packed and draining clear slightly pink fluid (serosenguinous)) Extremity: Normal Inspection, Non Tender Neurologic/Psychiatric: Alert, Oriented x3, No Motor/Sensory Deficits, Normal Mood/Affect Skin: Normal Color, Erythema (less small skin opening at bottom of scar) Lymphatic: No Adenopathy Results Lab Laboratory Tests 01/29/20 06:28: White Blood Count 7.3, Red Blood Count 2.74L, Hemoglobin 8.5L, Hematocrit 27L, Mean Corpuscular Volume 99, Mean Corpuscular Hemoglobin 31, Mean Corpuscular Hemoglobin Concent 32, Red Cell Distribution Width 13.6, Platelet Count 445H, Mean Platelet Volume 9.1, Neutrophils (%) (Auto) 64, Lymphocytes (%) (Auto) 24, Monocytes (%) (Auto) 7, Eosinophils (%) (Auto) 5, Basophils (%) (Auto) 0, Neutrophils # (Auto) 4.6, Lymphocytes # (Auto) 1.8, Monocytes # (Auto) 0.5, Eosinophils # (Auto) 0.4H, Basophils # (Auto) 0.0, Sodium Level 140, Potassium Level 4.1, Chloride Level 106, Carbon Dioxide Level 25, Anion Gap 9, Blood Urea Nitrogen 7, Creatinine 0.70, Estimat Glomerular Filtration Rate > 60, BUN/Creatinine Ratio 10, Glucose Level 97, Calcium Level 8.5, Phosphorus Level 3.3, Magnesium Level 1.7 Microbiology 01/26/20 Gram Stain - Final, Resulted 01/26/20 Wound Culture - Preliminary, Resulted Mixed Bacterial Ena With Probable Klebsiella/Enterobact Proteus Group Enterococcus species Assessment/Plan Assessment/Plan Assessment/Plan cellulitis abdomen lower incision with open wound has serosang drainge consistent with hematoma with ct findings at outside facility will need ongoing wound care and colostomy care wound culture irrigate and pack wound continue IV abx diet as tolerates will need home health at home as she did prior to admission for wound care as well as colostomy care likely home thursday STEPHANY SOTOMAYOR DO 01/29/20 1017: Subjective Subjective/Events-last exam Continues to feel better. Pain controlled. Trying to increase activity. Erythema improving. No new complaints denies n/v fever sweats chills shortness of breath or chest pain. Objective Exam General Appearance: No Apparent Distress, WD/WN HEENT: PERRL/EOMI, Normal ENT Inspection Neck: Full Range of Motion, Non Tender Respiratory: Chest Non Tender, No Accessory Muscle Use, No Respiratory Distress Cardiovascular: Regular Rate, Rhythm, No Edema Gastrointestinal: soft, tenderness (minimal lower abdomen), other (open wound lower abdomen, serosang drainage no purulent material) Extremity: Normal Inspection, Non Tender Neurologic/Psychiatric: Alert, Oriented x3 Skin: Normal Color, Erythema (less small skin opening at bottom of scar) Lymphatic: No Adenopathy Assessment/Plan Assessment/Plan Assessment/Plan cellulitis abdomen lower incision with open wound has serosang drainge consistent with hematoma with ct findings at outside facility will need ongoing wound care and colostomy care wound culture irrigate and pack wound continue IV abx diet as tolerates will need home health at home as she did prior to admission for wound care as well as colostomy care likely home tomorrow so all services can be arranged that she needs. Supervisory-Addendum Brief Verification & Attestation Participated in pt care: history, MDM, physical Personally performed: exam, history, MDM, supervision of care Care discussed with: Medical Student Procedures: n/a Results interpretation: Verified all documentation Verification and Attestation of Medical Student E/M Service A medical student performed and documented this service in my presence. I reviewed and verified all information documented by the medical student and made modifications to such information, when appropriate. I personally performed the physical exam and medical decision making. Stephany Sotomayor, Jan 29, 2020,10:17 EL WILL MED STUDENT Jan 29, 2020 07:53 STEPHANY SOTOMAYOR DO Jan 29, 2020 10:17
[2020-01-29] MEDS: ACETAMINOPHEN 325 MG TABLET PO PRN (15:23)
[2020-01-29 16:00] VITALS: BP 123/66
[2020-01-29 23:42] VITALS: BP 116/62
[2020-01-30] MEDS: NS IV 1000 ML 1,000 ML IV SCH ×2 (02:06→15:36)
[2020-01-30] MEDS: PIPERACILLIN/TAZO 4.5 GM/NS 100 ML IV SCH ×6 (02:06→15:36)
[2020-01-30] MEDS: fentaNYL INJECTION 100 MCG/2 ML AMP IV PRN (03:35)
[2020-01-30 06:20] LABS: BUN/CREATININE RATIO 9; CALCIUM 8.6 MG/DL (8.5-10.1); CARBON DIOXIDE 25 MMOL/L (21-32); CHLORIDE 104 MMOL/L (98-107); GFR ESTIMATED > 60; GLUCOSE 97 MG/DL (70-105); MAGNESIUM 1.7 MG/DL (1.6-2.4); PHOSPHORUS 3.4 MG/DL (2.3-4.7); SODIUM 139 MMOL/L (135-145)
[2020-01-30] MEDS: KCL 20 MEQ TAB (K-DUR) PO SCH (06:31)
[2020-01-30] MEDS: POTASSIUM CL 10MEQ/50ML IVPB 50 ML IV SCH (06:31)
[2020-01-30] MEDS: HYDROcodone/APAP 7.5 MG/325 MG (LORTAB, LORCET PLUS) TABLET PO PRN ×2 (06:37→13:20)
--- NOTE | 2020-01-30 06:58 | Progress Note ---
Subjective Date Seen by a Provider: Jan 30, 2020 Time Seen by a Provider: 06:50 Subjective/Events-last exam Not complaining of wound site this am. She had pain medication due to LBP. She hasn't been ambulating too much. Objective Exam Vital Signs Date Time Temp Pulse Resp B/P (MAP) Pulse Ox O2 Delivery O2 Flow Rate FiO2 01/29/20 23:42 37.0 71 17 116/62 (80) 97 Room Air 01/29/20 20:15 Room Air 01/29/20 16:00 37.0 70 20 123/66 (85) 98 Room Air 01/29/20 15:55 37.0 01/29/20 15:23 36.6 01/29/20 08:00 Room Air 01/29/20 07:40 36.6 67 18 133/60 (84) 95 Room Air 01/29/20 07:36 36.2 I & O 01/30/20 07:00 Intake Total 2428 ml Output Total 125 ml Balance 2303 ml Capillary Refill : Less Than 3 Seconds General Appearance: No Apparent Distress Respiratory: Lungs Clear Cardiovascular: Regular Rate, Rhythm Gastrointestinal: normal bowel sounds, soft Neurologic/Psychiatric: Alert, Oriented x3 Results Lab Laboratory Tests 01/30/20 05:43: Sodium Level 139, Potassium Level 4.0, Chloride Level 104, Carbon Dioxide Level 25, Anion Gap 10, Blood Urea Nitrogen 6L, Creatinine 0.70, Estimat Glomerular Filtration Rate > 60, BUN/Creatinine Ratio 9, Glucose Level 97, Calcium Level 8.6, Phosphorus Level 3.4, Magnesium Level 1.7 Microbiology 01/26/20 Gram Stain - Final, Complete 01/26/20 Wound Culture - Final, Complete Mixed Bacterial Ena With Klebsiella oxytoca Proteus mirabilis Enterococcus species Assessment/Plan Assessment/Plan Assess & Plan/Chief Complaint 1. Wound infection -Dr. Sotomayor attending physician -agree with Zosyn started yesterday -Appropriate packing performed -review CT of abdomen from [place]. 01/27 -GNR from wound culture -day #3 Zosyn -packing of wound continues -check cbc in the am 01/29 -day #4 Zosyn -enterococcus species on culture -suspect home in the am of 01/29 with packings and remaining healing at home. 01/30 -day #5 Zosyn -possible home today with home health visits for packing of wound until healed 2. Hypertensioncurrently normotensive -Will initiate lisinopril if needed for 01/28 -BP normal without lisinopril for now 01/29 -most likely will restate lisinopril O/P if elevated. She has quit cigarettes and is hopeful she may be able to go off the bp med. 01/30 -At this time bp is normal -will recheck 02/01 or 02/02 in office to determine need to restart lisinopril 3. Hyperlipidemia -Will hold on her statin medication for now GLADIS GRIGGS MD Jan 30, 2020 06:58
--- NOTE | 2020-01-30 07:37 | Progress Note - Surgery ---
Subjective Date Seen by a Provider: Jan 30, 2020 Time Seen by a Provider: 07:05 Subjective/Events-last exam Pt comfortable sitting up in chair eating this morning. States her tenderness is reduced but the wound site still remains tender to the touch. Erythema continues to decrease and no signs of continued infection were seen. Serosenguinous drainage noted. Pt denies n/v, fever, chills, sob, chest pain. Objective Exam Vital Signs Date Time Temp Pulse Resp B/P (MAP) Pulse Ox O2 Delivery O2 Flow Rate FiO2 01/29/20 23:42 37.0 71 17 116/62 (80) 97 Room Air 01/29/20 20:15 Room Air 01/29/20 16:00 37.0 70 20 123/66 (85) 98 Room Air 01/29/20 15:55 37.0 01/29/20 15:23 36.6 01/29/20 08:00 Room Air 01/29/20 07:40 36.6 67 18 133/60 (84) 95 Room Air 01/29/20 07:36 36.2 I & O 01/30/20 06:59 Intake Total 2428 ml Output Total 125 ml Balance 2303 ml Capillary Refill : Less Than 3 Seconds General Appearance: No Apparent Distress HEENT: PERRL/EOMI, Normal ENT Inspection Neck: Full Range of Motion, Non Tender Respiratory: Lungs Clear Cardiovascular: Regular Rate, Rhythm Gastrointestinal: normal bowel sounds, soft Extremity: Normal Inspection, Non Tender Neurologic/Psychiatric: Alert, Oriented x3 Skin: Normal Color, Erythema (less small skin opening at bottom of scar) Lymphatic: No Adenopathy Results Lab Laboratory Tests 01/30/20 05:43: Sodium Level 139, Potassium Level 4.0, Chloride Level 104, Carbon Dioxide Level 25, Anion Gap 10, Blood Urea Nitrogen 6L, Creatinine 0.70, Estimat Glomerular Filtration Rate > 60, BUN/Creatinine Ratio 9, Glucose Level 97, Calcium Level 8.6, Phosphorus Level 3.4, Magnesium Level 1.7 Microbiology 01/26/20 Gram Stain - Final, Complete 01/26/20 Wound Culture - Final, Complete Mixed Bacterial Ena With Klebsiella oxytoca Proteus mirabilis Enterococcus species Assessment/Plan Assessment/Plan Assessment/Plan Wound infection hypotension home health consult continue wound assisted today EL WILL MED STUDENT Jan 30, 2020 07:37
[2020-01-30 08:00] VITALS: BP 142/79
--- NOTE | 2020-01-30 11:48 | NUR ---
CM/SS visited with patient for discharge planning. Plan: Patient will return home with a resumption of [facility]. Home Health: The patient is currently on service with [facility]. GUILHERME/CHEY contacted Libby from agency to inform her of patient's discharge and new daily wound care need. Libby reports that the agency will be able to meet patient's needs. GUILHERME/CHEY informed the patient's physician. GUILHERME/CHEY discussed discharge with the patient. She reported that she does not have any one available that home health could teach wound care to. She states that she does not feel comfortable learning herself due to how low the wound is and she is not able to see it. CM/SS discussed different options such as outpatient wound care on opposite days than home health. Patient reports that she is unsure when her ride will be available and she is uncertain about driving herself. GUILHERME/SS informed patient of phone conversation with Libby at [facility]. She verbalized understanding. No further needs at this time.
--- NOTE | 2020-01-30 13:20 | NUR ---
LORTAB 7.5 PO FOR PAIN.
[2020-01-30 15:45] VITALS: BP 137/69
--- NOTE | 2020-01-30 16:23 | D/C HH Face to Face Order ---
D/C Face to Face Orders Instructions for Patient [facility], Patient Instructions/FollowUp: 2-3 weeks Светлана Physician to follow Patient: Светлана Discharge Diet for Home: Regular Diet Patient Problems: open wound colostomy Patient Data-Allergies,Ht & Wt Patient Allergies: Coded Allergies: No Known Drug Allergies (Unverified , 11/22/19) Height (Feet): 5 Height (Inches): 3.00 Weight (Pounds): 157 Weight (Ounces): 0.0 Home Health Need/Face to Face Date of Face to Face: Jan 30, 2020 Clinical Findings: Muscle weakness, Wound infection I have seen Pt [id number]: Yes Discharged To: Home Diagnosis/Conditions: Open wound colostomy (hager) after pelvic abscess Patient is Homebound due to: Raghav fall risk due to instabilty, Muscle weakness, Pain w/ambulation Homebound Status Due to the above stated illness, injury or surgical procedure (medical condition or diagnosis) and associated clinical findings, the patient is homebound because of his/her inability to leave home except with aid of a supportive device and/or person AND leaving the home requires a considerable and taxing effort or is medically contraindicated. Pt req the following assistanc: Aid of another person Home Health Nursing Orders Home Health Services Order: Nursing Services, Wound Care-Eval/Treat Certify Stmt I certify that this patient is under my care and that I, a nurse practitioner or a physician; a surgical assistant certified working with me, had a face to face encounter that - meets the physician face to face encounter requirements with this patient as dated. STEPHANY TELLEZ DO Jan 30, 2020 16:23
[2020-01-30] MEDS ORDERED: AMOX-358 PO (16:25)
--- NOTE | 2020-01-30 16:41 | NUR ---
RX AND INST REVIEWED AND VERBALIZED UNDERSTANDING. DC'D PER WC TO HOME. HHC SET UP FOR TOMORROW PER SS.
== END 2020-01-30 16:42 | disposition home health service (06) | DRG 863 ==
LOC: 4TH 01:52 → INTOOBSV 01:52 → 4TH 01:53 → OBSVTOIN 01-27 07:11
PROVIDERS: ADMIT Surgery; ATTEND Surgery
DX: T81.41XA Infection following a procedure, superficial incisional surgical site, initial encounter (principal); L03.311 Cellulitis of abdominal wall; L76.32 Postprocedural hematoma of skin and subcutaneous tissue following other procedure; L76.22 Postprocedural hemorrhage of skin and subcutaneous tissue following other procedure; I95.9 Hypotension, unspecified; Z93.3 Colostomy status; E78.5 Hyperlipidemia, unspecified; I10 Essential (primary) hypertension; K21.9 Gastro-esophageal reflux disease without esophagitis; M19.91 Primary osteoarthritis, unspecified site; M54.9 Dorsalgia, unspecified; H04.129 Dry eye syndrome of unspecified lacrimal gland; Z87.891 Personal history of nicotine dependence; Z87.01 Personal history of pneumonia (recurrent)
CPT/HCPCS: 36415; 80048; 83735; 84100; 84132; 85025; 85027; 87070; 87077; 87186; 87205; G0378

== ENCOUNTER 2020-04-16 05:44 | Outpatient (RCR) | payer MEDICARE ==
[~2020-04-16] VITALS: Ht 160 cm; Wt 72.7 kg
[~2020-04-16 05:44] MED LIST changes: +ACET325C7 PO; +AMOX-358 PO; +DOCU-238 PO; -ENAL20TA PO; +ENAL20TA16 PO; +GLUC-203 PO; -HYDR-3812 PO; +LISI-552 PO; -PANT40TA3 PO; +PANT40TA52 PO; +PEG15DRO9 OU; +VITA-244 PO
== END 2020-04-16 09:43 | disposition home or self-care (01) ==
LOC: PREOP 05:44
PROVIDERS: ATTEND Surgery
DX: Z01.812 Encounter for preprocedural laboratory examination (principal); K63.1 Perforation of intestine (nontraumatic); Z20.828 Contact with and (suspected) exposure to other viral communicable diseases
CPT/HCPCS: 87635

== ENCOUNTER 2020-04-18 10:09 | Inpatient (IN) | payer MEDICARE ==
[2020-04-18] VITALS (10 sets, daily range): BP systolic 125–150; BP diastolic 69–94
[~2020-04-18] VITALS: Ht 160 cm; Wt 72.7 kg
[2020-04-18] MEDS ORDERED: FLEET ENEMA ADULT 1 EA BTL ONE ×2 (10:26→10:28)
[2020-04-18] MEDS ORDERED: ceFAZolin INJECTION 1,000 MG in WATER (STERILE) FOR INJECTION 10 ML IV ONE (10:30)
[2020-04-18] MEDS ORDERED: FLEET ENEMA ADULT 1 EA BTL PR NR (10:33)
[2020-04-18 11:12] LABS: BASOPHILS % (AUTO) 1 % (0-10); EOSINOPHILS # (AUTO) 0.1 10^3/uL (0.0-0.3); EOSINOPHILS % (AUTO) 2 % (0-10); HEMATOCRIT 44 % (35-52); HEMOGLOBIN 14.2 g/dL (11.5-16.0); LYMPHOCYTES # (AUTO) 1.6 10^3/uL (1.0-4.0); LYMPHOCYTES % (AUTO) 24 % (12-44); MEAN CORPUSCULAR HEMOGLOBIN 31 pg (25-34); MEAN CORPUSCULAR HGB CONC 32 g/dL (32-36); MEAN CORPUSCULAR VOLUME 95 fL (80-99); MEAN PLATELET VOLUME 9.5 fL (9.0-12.2); MONOCYTES # (AUTO) 0.4 10^3/uL (0.0-1.0); MONOCYTES % (AUTO) 6 % (0-12); NEUTROPHILS # (AUTO) 4.6 10^3/uL (1.8-7.8); NEUTROPHILS % (AUTO) 68 % (42-75); PLATELET COUNT 355 10^3/uL (130-400); WHITE BLOOD COUNT 6.7 10^3/uL (4.3-11.0)
--- NOTE | 2020-04-18 11:38 | Progress Note-Pre Operative ---
Pre-Operative Progress Note H&P Reviewed The H&P was reviewed, patient examined and no changes noted. Date Seen by Provider: Apr 18, 2020 Time Seen by Provider: 11:36 Date H&P Reviewed: Apr 18, 2020 Time H&P Reviewed: 11:37 Pre-Operative Diagnosis: history of colon perforation STEPHANY TELLEZ DO Apr 18, 2020 11:38
[2020-04-18] MEDS ORDERED: LIDOCAINE/EPI 1%-1:100,000 (XYLOCAINE) 20ML ONE (11:56)
[2020-04-18] MEDS ORDERED: fentaNYL INJECTION 100 MCG/2 ML AMP ONE ×3 (12:06→14:07)
[2020-04-18] MEDS ORDERED: MIDAZOLAM 2 MG/2 ML (VERSED) VIAL ONE (12:06)
[2020-04-18] MEDS ORDERED: LIDOCAINE PF 2% 5 ML (XYLOCAINE) VIAL ONE (12:06)
[2020-04-18] MEDS ORDERED: proPOfol 200 MG/20 ML (DIPRIVAN) VIAL IV ONE (12:06)
[2020-04-18] MEDS ORDERED: ONDANSETRON 4 MG/2 ML (SDV) Z0FRAN ONE (12:06)
[2020-04-18] MEDS ORDERED: ROCURONIUM 10 MG/ML 5 ML SYRINGE IV ONE ×2 (12:07→14:32)
[2020-04-18] MEDS ORDERED: SEVOFLURANE (ULTANE) 15 ML INHAL SOLN ONE ×10 (12:07→15:26)
[2020-04-18] MEDS ORDERED: fentaNYL INJECTION 100 MCG/2 ML AMP IVP ONE ×2 (12:30→16:00)
[2020-04-18] MEDS: LACTATED RINGERS 1,000 ML IV PRN ×2 (12:32→15:57)
[2020-04-18] MEDS ORDERED: GLYCOPYRROLATE 0.2 MG/ML (ROBINUL) 2 ML VIAL ONE (15:26)
[2020-04-18] MEDS ORDERED: NEOSTIGMINE 3 MG/3 ML VIAL ONE (15:26)
[2020-04-18] MEDS ORDERED: morphine INJ 10 MG/ML 1ML (SYR OR VIAL) ONE (15:53)
[2020-04-18] MEDS ORDERED: MEPERIDINE (DEMEROL) INJ 50 MG/ML IVP ONE (16:00)
[2020-04-18] MEDS ORDERED: morphine INJ 10 MG/ML 1ML (SYR OR VIAL) IVP ONE (16:00)
[2020-04-18] MEDS ORDERED: ONDANSETRON 4 MG/2 ML (SDV) Z0FRAN IVP PRN ×2 (16:00→16:45)
--- NOTE | 2020-04-18 16:44 | Progress Note-Post Operative ---
Post-Operative Progess Note Surgeon (s)/Emery Wheel Worker (s) Surgeon STEPHANY TELLEZ DO Emery Wheel Worker: Dr. Acevedo Pre-Operative Diagnosis history of colon perforation Post-Operative Diagnosis same Procedure & Operative Findings Date of Procedure 04/18/20 Procedure Performed/Findings laparoscopic lysis of adhesions 1.5 hours, colostomy takedown with end to end anastamosis Anesthesia Type gen Estimated Blood Loss Estimated blood loss (mL): 100 mL Specimens/Packing Specimens Removed end colostomy, anastamotic rings STEPHANY TELLEZ DO Apr 18, 2020 16:44
[2020-04-18] MEDS: LACTATED RINGERS 1,000 ML IV SCH (17:01)
[2020-04-18] MEDS ORDERED: RT-ALBUTEROL SULF 2.5 MG/3 ML PRE-MIX VIAL INH PRN (17:15)
[2020-04-18] MEDS: morphine INJ 10 MG/ML 1ML (SYR OR VIAL) IVP PRN ×2 (18:06→22:10)
--- NOTE | 2020-04-18 18:33 | NUR ---
RICKY SIEGEL admitted to room 420-1, from surgery after colostomy reversal procedure with Dr. Sotomayor , on 04/18/20, accompanied by staff Kerby recovery nurse .RICKY SIEGEL introduced to surroundings, call light, bed controls, phone, TV, temperature control, lights, meal times, smoking policy, visitor policy, side rail policy, bathrooms and showers. Patient Rights given to patient in the handbook. RICKY SIEGEL verbalizes understanding that [facility] is not responsible for the loss or damage to any personal effects or valuables that are kept in the patients posession during their hospitalization. The following Patient Care Plans and discharge were discussed with the patient. RICKY SIEGEL verbalizes understanding of Interdisciplinary Patient Education. Patient was informed about the Rapid Response Team and its purpose.
[2020-04-18] MEDS: RT-ALBUTEROL SULF 2.5 MG/3 ML PRE-MIX VIAL INH SCH (19:02)
[2020-04-18] MEDS: ceFAZolin INJECTION 2,000 MG in WATER (STERILE) FOR INJECTION 10 ML IV SCH (21:58)
[2020-04-18] MEDS: metroNIDAZOLE 500MG/100ML IVPB 100 ML IV SCH (22:01)
[2020-04-19] VITALS (9 sets, daily range): BP systolic 104–154; BP diastolic 65–97
[2020-04-19] MEDS: LACTATED RINGERS 1,000 ML IV SCH ×4 (00:40→22:03)
[2020-04-19 05:25] LABS: HEMOGLOBIN 12.4 g/dL (11.5-16.0); MEAN PLATELET VOLUME 9.5 fL (9.0-12.2); WHITE BLOOD COUNT 11.1 10^3/uL (4.3-11.0)
[2020-04-19 05:31] LABS: ALBUMIN 3.6 GM/DL (3.2-4.5)
[2020-04-19 05:32] LABS: CHLORIDE 103 MMOL/L (98-107); POTASSIUM 4.5 MMOL/L (3.6-5.0); SODIUM 140 MMOL/L (135-145)
[2020-04-19 05:33] LABS: CALCIUM 9.3 MG/DL (8.5-10.1)
[2020-04-19 05:34] LABS: GLUCOSE 115 MG/DL (70-105); TOTAL PROTEIN 6.1 GM/DL (6.4-8.2)
[2020-04-19 05:35] LABS: CARBON DIOXIDE 26 MMOL/L (21-32)
[2020-04-19 05:36] LABS: BILIRUBIN,TOTAL 0.4 MG/DL (0.1-1.0)
[2020-04-19 05:37] LABS: ALKALINE PHOSPHATASE 58 U/L (40-136)
[2020-04-19 05:38] LABS: CREATININE SERUM 0.76 MG/DL (0.60-1.30); GFR ESTIMATED > 60
[2020-04-19 05:39] LABS: BUN/CREATININE RATIO 12
[2020-04-19 05:40] LABS: ALANINE AMINOTRANSFERASE 20 U/L (0-55); MAGNESIUM 1.6 MG/DL (1.6-2.4)
[2020-04-19] MEDS: metroNIDAZOLE 500MG/100ML IVPB 100 ML IV SCH (06:00)
[2020-04-19] MEDS: ceFAZolin INJECTION 2,000 MG in WATER (STERILE) FOR INJECTION 10 ML IV SCH (06:00)
[2020-04-19] MEDS: morphine INJ 10 MG/ML 1ML (SYR OR VIAL) IVP PRN (06:01)
--- NOTE | 2020-04-19 06:55 | Anesthesia-General Post-Op ---
General Patient Condition Mental Status/LOC: Same as Preop Cardiovascular: Satisfactory Nausea/Vomiting: Absent Respiratory: Satisfactory Pain: Controlled Complications: Absent Post Op Complications Complications None Follow Up Care/Instructions Patient Instructions None needed. Anesthesia/Patient Condition Patient Condition Patient is doing well, no complaints, stable vital signs, no apparent adverse anesthesia problems. No complications reported per nursing. GRANT VARNER CRNA Apr 19, 2020 06:55
--- NOTE | 2020-04-19 07:16 | Consultation ---
History of Present Illness History of Present Illness Patient Consulted On(darren/time) 04/19/20 07:11 Date Seen by Provider: Apr 19, 2020 Time Seen by Provider: 06:55 History of Present Illness 64-year-old female admitted on April 18 for reanastomosis following a previous colostomy that she received in the summer. Patient is status post day number 1 and she appears to be doing okay. She does report having a slight return of her appetite. She has not passed any gas as of yet. She does have a history of hypertension and does complain of a slight headache today. She did report receiving morphine about 1 hour ago however. Allergies and Home Medications Allergies Coded Allergies: No Known Drug Allergies (Unverified , 04/13/20) Home Medications Atorvastatin Calcium 40 Mg Tablet, 40 MG PO DAILY, (Reported) Cholecalciferol (Vitamin D3) 25 Mcg Capsule, 25 MCG PO DAILY, (Reported) Docusate Sodium 100 Mg Capsule, 100 MG PO BID, (Reported) Glucosam/Chond/Hyalu/Cf Borate 1 Each Tablet, 1 EACH PO DAILY, (Reported) Lisinopril 20 Mg Tablet, 20 MG PO DAILY, (Reported) Multivitamin 1 Each Tablet, 1 EACH PO DAILY, (Reported) Pantoprazole Sodium 40 Mg Tablet.dr, 40 MG PO DAILY, (Reported) Peg 400/Hypromellose/Glycerin 15 Ml Drops, 2 DROPS OU PRN PRN for DRY EYES, (Reported) Vitamin E (Dl,Tocopheryl Acet) 450 Mg Capsule, 450 MG PO DAILY, (Reported) Patient Home Medication List Home Medication List Reviewed: Yes Past Tgadclm-Gjcahk-Rzgeqq Hx Patient Social History Alcohol Use: Occasionally Uses Alcohol Beverage of Choice: Wine Recreational Drug Use: No Smoking Status: Former Smoker Type Used: Cigarettes Former Smoker, Quit: Dec 12, 2019 2nd Hand Smoke Exposure: Yes Recent Foreign Travel: No Contact w/Someone Who Travel: No Recent Infectious Disease Expo: No Recent Hopitalizations: Yes (November) Immunizations Up To Date Tetanus Booster (TDap): More than 5yrs PED Vaccines UTD: No Seasonal Allergies Seasonal Allergies: No Past Medical History Surgeries: Yes (d and c, BOWEL RESECTION) Respiratory: No Pneumonia Currently Using CPAP: No Currently Using BIPAP: No Cardiac: Yes High Cholesterol, Hypertension Neurological: No 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 Disorders: No Female 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 Disorders: Denies 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 Sexually Transmitted Disease: No HIV/AIDS: No Genitourinary: No Gastrointestinal: Yes Gastroesophageal Reflux Musculoskeletal: No Arthritis, Chronic Back Pain Endocrine: No HEENT: Yes (dry eye syndrome) Loss of Vision: Denies Hearing Impairment: Denies Cancer: No Psychosocial: No Integumentary: No Blood Disorders: No Adverse Reaction/Blood Tranf: No (N/A) Family Medical History Hypertension 19 MOTHER No Pertinent Family Hx Review of Systems-General Constitutional: see HPI Physical Exam-General Problems Physical Exam Vital Signs Vital Signs - First Documented Capillary Refill : Less Than 3 SecondsLess Than 3 Seconds General Appearance: no apparent distress Neck: supple Respiratory: lungs clear Cardiovascular: regular rate, rhythm Gastrointestinal: soft, other (bowel sounds are currently decreased) Rectal: deferred Assessment/Plan Assessment/Plan Admission Diagnosis/Plan 1. Previous colostomy -Takedown with reanastomosis yesterday -Care under Dr. Sotomayor and Dr. Acevedo -I suspect she will have clear liquids today. 2. Hypertension -Currently she is normotensive but this will be monitored and home and started as necessary Admission Status: Inpatient Order (span 2 midnights) Reason for Inpatient Admission: surgery reanastomose large intestine April 18, 2020 Clinical Quality Measures DVT/VTE Risk/Contraindication: Risk Factor Score Per Nursin RFS Level Per Nursing on Admit: 4+=Very High GLADIS GRIGGS MD Apr 19, 2020 07:16
--- NOTE | 2020-04-19 07:36 | Progress Note - Surgery ---
CLAY BERNSTEIN MED STUDENT 04/19/20 0736: Subjective Date Seen by a Provider: Apr 19, 2020 Time Seen by a Provider: 07:15 Subjective/Events-last exam Pt states she is doing well today, but notes some suprapubic abdominal pain and a headache. Says she had the headache yesterday before surgery and notes it is slightly improved today. Pt is hoping her diet can be advanced today as she would like something to eat/drink. No bowel movements or passing gas yet. Still has urinary catheter in place and 500 mL was emptied so far this morning. Nurse is working on getting pt an incentive spirometer as pt has not yet gotten one. Labs today show WBC of 11.1 and hemoglobin of 12.4. Objective Exam Vital Signs Date Time Temp Pulse Resp B/P (MAP) Pulse Ox O2 Delivery O2 Flow Rate FiO2 04/19/20 04:00 36.5 93 18 117/76 (90) 97 Room Air 04/19/20 00:00 36.6 98 16 104/70 (81) 96 Room Air 04/18/20 21:00 97 Room Air 3.00 04/18/20 19:40 37.2 92 18 137/72 (93) 97 Room Air 04/18/20 19:06 98 Room Air 04/18/20 17:07 36.2 101 94 04/18/20 16:45 36.2 20 132/74 (93) 94 Room Air 04/18/20 16:45 Room Air 04/18/20 16:30 Room Air 04/18/20 16:30 20 132/74 (93) 93 Room Air 04/18/20 16:20 20 139/70 (93) 98 OxyMask 3 04/18/20 16:15 OxyMask 3 04/18/20 16:10 20 125/92 (103) 99 OxyMask 3 04/18/20 16:00 20 131/69 (89) 99 OxyMask 6 04/18/20 16:00 OxyMask 6 04/18/20 15:50 20 136/76 (96) 100 OxyMask 6 04/18/20 15:44 OxyMask 6 04/18/20 15:44 36.2 20 126/73 (90) 100 OxyMask 6 04/18/20 10:15 Room Air 04/18/20 10:15 37.0 101 20 150/94 96 Room Air I & O 04/19/20 07:00 Intake Total 10 ml Output Total 750 ml Balance -740 ml Capillary Refill : Less Than 3 SecondsLess Than 3 Seconds General Appearance: No Apparent Distress, WD/WN HEENT: PERRL/EOMI, Normal ENT Inspection Neck: Normal Inspection, Supple Respiratory: Lungs Clear, Normal Breath Sounds, No Accessory Muscle Use, No Respiratory Distress Cardiovascular: Regular Rate, Rhythm, No Edema, No Murmur Gastrointestinal: soft, other (mild suprapubic and LLQ tenderness; bandages intact over incision sites with some minimal serosanguinous from the LUQ and RLQ bandages) Extremity: Normal Inspection, Non Tender, No Pedal Edema Neurologic/Psychiatric: Alert, Oriented x3, No Motor/Sensory Deficits, Normal Mood/Affect Skin: Normal Color, Warm/Dry Lymphatic: No Adenopathy Results Lab Laboratory Tests 04/18/20 11:00: White Blood Count 6.7, Red Blood Count 4.64, Hemoglobin 14.2, Hematocrit 44, Mean Corpuscular Volume 95, Mean Corpuscular Hemoglobin 31, Mean Corpuscular Hemoglobin Concent 32, Red Cell Distribution Width 14.3, Platelet Count 355, Mean Platelet Volume 9.5, Immature Granulocyte % (Auto) 0, Neutrophils (%) (Auto) 68, Lymphocytes (%) (Auto) 24, Monocytes (%) (Auto) 6, Eosinophils (%) (Auto) 2, Basophils (%) (Auto) 1, Neutrophils # (Auto) 4.6, Lymphocytes # (Auto) 1.6, Monocytes # (Auto) 0.4, Eosinophils # (Auto) 0.1, Basophils # (Auto) 0.0, Immature Granulocyte # (Auto) 0.0 04/19/20 04:55: White Blood Count 11.1H, Red Blood Count 4.02, Hemoglobin 12.4, Hematocrit 39, Mean Corpuscular Volume 96, Mean Corpuscular Hemoglobin 31, Mean Corpuscular Hemoglobin Concent 32, Red Cell Distribution Width 14.3, Platelet Count 338, Mean Platelet Volume 9.5, Sodium Level 140, Potassium Level 4.5, Chloride Level 103, Carbon Dioxide Level 26, Anion Gap 11, Blood Urea Nitrogen 9, Creatinine 0.76, Estimat Glomerular Filtration Rate > 60, BUN/Creatinine Ratio 12, Glucose Level 115H, Calcium Level 9.3, Corrected Calcium 9.6, Magnesium Level 1.6, Total Bilirubin 0.4, Aspartate Amino Transf (AST/SGOT) 18, Alanine Aminotransferase (ALT/SGPT) 20, Alkaline Phosphatase 58, Total Protein 6.1L, Albumin 3.6 Assessment/Plan Assessment/Plan Assessment/Plan s/p colostomy takedown pain control obtain IS for pt monitor labs and I&O advance to clear liquid diet Clinical Quality Measures DVT/VTE Risk/Contraindication: Risk Factor Score Per Nursin RFS Level Per Nursing on Admit: 4+=Very High STEPHANY SOTOMAYOR DO 04/20/20 1237: Subjective Subjective/Events-last exam NPO. No flatus or bm. Mari removed this morning. Some abdominal pain lower abdomen. Tolerable with pain medication. Headache. Denies n/v fever sweats chills shorntess of breath or chest pain. Usin IS. Has been ambulating. Objective Exam General Appearance: No Apparent Distress, WD/WN HEENT: Normal ENT Inspection Neck: Normal Inspection, Supple Respiratory: Chest Non Tender, No Accessory Muscle Use, No Respiratory Distress Cardiovascular: Regular Rate, Rhythm, No Edema Gastrointestinal: soft, other (mild suprapubic and LLQ tenderness; bandages intact over incision sites with some minimal serosanguinous from the LUQ and RLQ bandages) Extremity: Normal Inspection, Non Tender Neurologic/Psychiatric: Alert, Oriented x3, No Motor/Sensory Deficits, Normal Mood/Affect Skin: Normal Color, Warm/Dry Lymphatic: No Adenopathy Assessment/Plan Assessment/Plan Assessment/Plan s/p colostomy reversal pain control start clears scd's and ambulate for dvt prophylaxis Supervisory-Addendum Brief Verification & Attestation Participated in pt care: history, MDM, physical Personally performed: exam, history, MDM, supervision of care Care discussed with: Medical Student Procedures: n/a Results interpretation: Verified all documentation Verification and Attestation of Medical Student E/M Service A medical student performed and documented this service in my presence. I reviewed and verified all information documented by the medical student and made modifications to such information, when appropriate. I personally performed the physical exam and medical decision making. Stephany Sotomayor, Apr 19, 2020,12:37 CLAY BERNSTEIN MED STUDENT Apr 19, 2020 07:36 STEPHANY SOTOMAYOR DO Apr 20, 2020 12:37
[2020-04-19] MEDS: RT-ALBUTEROL SULF 2.5 MG/3 ML PRE-MIX VIAL INH SCH (07:57)
[2020-04-19] MEDS ORDERED: ACET325T38 PO (08:55)
[2020-04-19] MEDS ORDERED: IBUP-1773 PO (08:55)
[2020-04-19] MEDS ORDERED: GLUC-203 PO (08:55)
[2020-04-19] MEDS ORDERED: BRIM2.5D OP (08:55)
--- NOTE | 2020-04-19 08:59 | NUR ---
SPOKE WITH THE PT AND CALLED [facility] TO COMPLETE THE MED REC THE FOLLOWING ARE FILL DATES FROM [facility]: 01-07-2020 PANTOPRAZOLE 40MG #90/90DS 03-05-2020 ATORVASTATIN 40MG #90/90DS 03-05-2020 LISINOPRIL 20MG #90/90DS 03-10-2020 IBUPROFEN 600MG #30/10DS OTC MEDS: MTV MOVE FREE VIT D VIT E TYLENOL LUMIFY EYE DROPS DOCUSATE
--- NOTE | 2020-04-19 10:16 | Physical Therapy Evaluation ---
PT Evaluation-General Medical Diagnosis Admission Date Apr 18, 2020 at 10:09 Medical Diagnosis: colostomy reversal Onset Date: Apr 18, 2020 Therapy Diagnosis Therapy Diagnosis: debility Height/Weight Height (Feet): 5 Height (Inches): 3.00 Weight (Pounds): 157 Weight (Ounces): 0.0 Precautions Precautions/Isolations: Fall Prevention, Standard Precautions Referral Physician: Светлана Reason for Referral: Evaluation/Treatment Medical History Pertinent Medical History: HTN Additional Medical History 12/2019 colon perforation with colostomy Current History s/p colostomy reversal. Reviewed History: Yes Social History Home: Single Level Current Living Status: Spouse Prior Prior Level of Function SCALE: Activities may be completed with or without assistive devices. 7-Qelohjnnie-mkhazsd completes the activity by him/herself with no assistance from a helper. 5-Set-up or Clean-up Assistance-helper sets up or cleans up; patient completes activity. Boyd assists only prior to or following the activity. 4-Supervision or Touching Assistance-helper provides verbal cues and/or touching/steadying and/or contact guard assistance as patient completes activity. Assistance may be provided throughout the activity or intermittently. 3-Partial/Moderate Assistance-helper does LESS THAN HALF the effort. Boyd lifts, holds or supports trunk or limbs, but provides less than half the effort. 2-Substantial/Maximal Assistance-helper does MORE THAN HALF the effort. Boyd lifts or holds trunk or limbs and provides more than half the effort. 4-Mrjorcysx-txljzi does ALL the effort. Patient does none of the effort to complete the activity. Or, the assistance of 2 or more helpers is required for the patient to complete the activity. If activity was not attempted, code reason: 7-Patient Refused. 9-Not Applicable-not attempted and the patient did not perform the activity before the current illness, exacerbation or injury. 10-Not Attempted due to Environmental Limitations-(lack of equipment, weather restraints, etc.). 88-Not Attempted due to Medical Conditions or Safety Concerns. Bed Mobility: 6 Transfers (B,C,W/C): 6 Gait: 6 Stairs: 6 Indoor Mobility (Ambulation): Independent Stairs: Independent Prior Devices Use: None PT Evaluation-Current Subjective Patient agrees to PT. Pain Numeric Pain Scale: 5-Moderate Pain Location: Left, Lower Location Body Site: Abdomen Pain Description: Acute Objective Patient Orientation: Normal For Age Attachments: Johnson Catheter, IV ROM/Strength ROM Lower Extremities bilateral LE WFL Strength Lower Extremities 4/5 grossly bilateral LE Integumentary/Posture Integumentary refer to nursing notes Bowel Incontinence: No Bladder Incontinence: Johnson Cath Posture WFL Neuromuscular (Tone, Coordination, Reflexes) grossly intact Sensory Vision: Functional Hearing: Functional Sensation Right Lower Extremit: Intact Sensation Left Lower Extremity: Intact Transfers Roll Left to Right (QC): 6 Sit to Lying (QC): 6 Lying to Sitting/Side of Bed(Q: 6 Sit to Stand (QC): 6 Chair/Dfg-mu-Toyrd Xfer(QC): 7 Toilet Transfer (QC): 7 Car Transfer (QC): 7 Gait Does the Patient Walk?: Yes Mode of Locomotion: Walk Anticipated Mode of Locomotion: Walk Walk 10 feet (QC): 6 Walk 50 ft with 2 Turns(QC): 6 Walk 150 ft (QC): 6 Distance: 500' Gait Assistive Device: FWW Comments/Gait Description safe and functional with no deviation Balance Sitting Static: Normal Sitting Dynamic: Normal Standing Static: Normal Standing Dynamic: Normal Assessment/Needs 64 y.o. female, is currently at [facility] with all gross motor skills and has been up with nursing prior to PT arrival. PT instructed patient and RN to ambulate PRN in hallway and room independently. No skilled PT required. Rehab Potential: Good PT Plan Treatment/Plan Treatment Plan: Discontinue PT, goals met Treatment Duration: Apr 19, 2020 Frequency: 1 time per week Estimated Hrs Per Day: .25 hour per day Patient and/or Family Agrees t: Yes Time/GCodes Time In: 910 Time Out: 925 Total Billed Treatment Time: 15 Total Billed Treatment 1 visit EVMod 15 min JAISON QUINN PT Apr 19, 2020 10:16
[2020-04-19] MEDS: HYDROcodone/APAP 5 MG/325 MG (LORTAB) TAB PO PRN ×3 (12:45→21:09)
[2020-04-20 04:00] VITALS: BP 169/76
[2020-04-20] MEDS: HYDROcodone/APAP 5 MG/325 MG (LORTAB) TAB PO PRN ×5 (04:30→22:11)
[2020-04-20 06:33] LABS: HEMOGLOBIN 11.5 g/dL (11.5-16.0); MEAN PLATELET VOLUME 9.5 fL (9.0-12.2); WHITE BLOOD COUNT 8.7 10^3/uL (4.3-11.0)
[2020-04-20 06:43] LABS: BUN/CREATININE RATIO 10; CALCIUM 8.9 MG/DL (8.5-10.1); CARBON DIOXIDE 25 MMOL/L (21-32); CHLORIDE 101 MMOL/L (98-107); CREATININE SERUM 0.62 MG/DL (0.60-1.30); GFR ESTIMATED > 60; GLUCOSE 106 MG/DL (70-105); MAGNESIUM 1.6 MG/DL (1.6-2.4); POTASSIUM 3.8 MMOL/L (3.6-5.0); SODIUM 138 MMOL/L (135-145)
--- NOTE | 2020-04-20 07:24 | Progress Note - Surgery ---
CLAY BERNSTEIN MED STUDENT 04/20/20 0724: Subjective Date Seen by a Provider: Apr 20, 2020 Time Seen by a Provider: 07:00 Subjective/Events-last exam Pt doing well today, but having some LUQ pain. Says her headache from yesterday went away overnight, but came back a little this morning. Catheter was DC'd yesterday and pt has been able to urinate on her own. Urine output is 1050 mL so far today. No BM's or passing gas yet. Has been tolerating liquid diet. Says she has been using IS and ambulating some. WBC today is 8.7 and hgb is 11.5. Objective Exam Vital Signs Date Time Temp Pulse Resp B/P (MAP) Pulse Ox O2 Delivery O2 Flow Rate FiO2 04/20/20 04:00 36.9 92 18 169/76 (107) 96 Room Air 04/19/20 23:25 37.6 95 20 140/97 (111) 92 Room Air 04/19/20 21:00 Room Air 04/19/20 19:54 37.1 84 18 154/75 (101) 97 Room Air 04/19/20 18:36 Room Air 04/19/20 16:00 36.8 84 18 144/80 (101) 95 Room Air 04/19/20 14:54 37.2 92 99 21 04/19/20 11:56 37.2 92 16 132/77 (95) 99 Room Air 04/19/20 09:00 Room Air 04/19/20 08:00 36.0 104 16 125/65 (85) 97 Room Air 04/19/20 07:57 97 Room Air I & O 04/20/20 07:00 Intake Total 3860 ml Output Total 2200 ml Balance 1660 ml Capillary Refill : Less Than 3 SecondsLess Than 3 Seconds General Appearance: No Apparent Distress, WD/WN HEENT: PERRL/EOMI, Normal ENT Inspection Neck: Normal Inspection, Supple Respiratory: No Accessory Muscle Use, No Respiratory Distress, Other (clear throughout except minimal crackles at base of right lung) Cardiovascular: Regular Rate, Rhythm, No Edema, No Murmur Gastrointestinal: soft, other (mild lower abdominal tenderness; bandages intact over incision sites with some serosanguinous drainage from the LUQ and RLQ bandages) Extremity: Normal Inspection, Non Tender, No Pedal Edema Neurologic/Psychiatric: Alert, Oriented x3, No Motor/Sensory Deficits, Normal Mood/Affect Skin: Normal Color, Warm/Dry Lymphatic: No Adenopathy Results Lab Laboratory Tests 04/20/20 05:50: White Blood Count 8.7, Red Blood Count 3.69L, Hemoglobin 11.5, Hematocrit 35, M alcira Corpuscular Volume 95, Mean Corpuscular Hemoglobin 31, Mean Corpuscular Hemoglobin Concent 33, Red Cell Distribution Width 14.2, Platelet Count 303, Mean Platelet Volume 9.5, Sodium Level 138, Potassium Level 3.8, Chloride Level 101, Carbon Dioxide Level 25, Anion Gap 12, Blood Urea Nitrogen 6L, Creatinine 0.62, Estimat Glomerular Filtration Rate > 60, BUN/Creatinine Ratio 10, Glucose Level 106H, Calcium Level 8.9, Magnesium Level 1.6 Microbiology 04/18/20 MRSA Screen - Final, Complete MRSA not isolated Assessment/Plan Assessment/Plan Assessment/Plan s/p colostomy takedown pain control catheter DC'd yesterday encourage IS and ambulation monitor labs and I&O advance diet as tolerated Clinical Quality Measures DVT/VTE Risk/Contraindication: Risk Factor Score Per Nursin RFS Level Per Nursing on Admit: 4+=Very High STEPHANY SOTOMAYOR DO 04/20/202117: Subjective Subjective/Events-last exam Pain improved from yesterday. Minimal pain with pain medication. Patient no flatus or bm. Ambulating and using IS some. Denies n/v fever sweats chills shortness of breath or chest pain. Objective Exam General Appearance: No Apparent Distress, WD/WN HEENT: PERRL/EOMI, Normal ENT Inspection Neck: Normal Inspection, Supple Respiratory: Chest Non Tender, No Accessory Muscle Use, No Respiratory Distress Cardiovascular: Regular Rate, Rhythm, No Edema Gastrointestinal: soft, other (incisions c/d/i tenderness over llq incision) Extremity: Normal Inspection, Non Tender Neurologic/Psychiatric: Alert, Oriented x3, No Motor/Sensory Deficits, Normal Mood/Affect Skin: Normal Color, Warm/Dry Lymphatic: No Adenopathy Assessment/Plan Assessment/Plan Assessment/Plan s/p colostomy takedown lysis of adhesions pain control encourage IS and ambulation monitor labs and I&O on clear liquids advance with flatus lovenox for dvt prophylaxis Supervisory-Addendum Brief Verification & Attestation Participated in pt care: history, MDM, physical Personally performed: exam, history, MDM, supervision of care Care discussed with: Medical Student Procedures: n/a Results interpretation: Verified all documentation Verification and Attestation of Medical Student E/M Service A medical student performed and documented this service in my presence. I reviewed and verified all information documented by the medical student and made modifications to such information, when appropriate. I personally performed the physical exam and medical decision making. Stephany Sotomayor, Apr 20, 2020,21:17 CLAY BERNSTEIN MED STUDENT Apr 20, 2020 07:24 STEPHANY SOTOMAYOR DO Apr 20, 2020 21:18
--- NOTE | 2020-04-20 07:29 | Progress Note ---
Subjective Date Seen by a Provider: Apr 20, 2020 Time Seen by a Provider: 07:00 Subjective/Events-last exam she was ambulatory yesterday 4 times. She tolerated clear liquids. Slight tenderness in the right lower quadrant abdomen. Systolic blood pressure was noted to increase yesterday. Objective Exam Vital Signs Date Time Temp Pulse Resp B/P (MAP) Pulse Ox O2 Delivery O2 Flow Rate FiO2 04/20/20 04:00 36.9 92 18 169/76 (107) 96 Room Air 04/19/20 23:25 37.6 95 20 140/97 (111) 92 Room Air 04/19/20 21:00 Room Air 04/19/20 19:54 37.1 84 18 154/75 (101) 97 Room Air 04/19/20 18:36 Room Air 04/19/20 16:00 36.8 84 18 144/80 (101) 95 Room Air 04/19/20 14:54 37.2 92 99 21 04/19/20 11:56 37.2 92 16 132/77 (95) 99 Room Air 04/19/20 09:00 Room Air 04/19/20 08:00 36.0 104 16 125/65 (85) 97 Room Air 04/19/20 07:57 97 Room Air I & O 04/20/20 07:00 Intake Total 3860 ml Output Total 2200 ml Balance 1660 ml Capillary Refill : Less Than 3 SecondsLess Than 3 Seconds General Appearance: No Apparent Distress Results Lab Laboratory Tests 04/20/20 05:50: White Blood Count 8.7, Red Blood Count 3.69L, Hemoglobin 11.5, Hematocrit 35, Mean Corpuscular Volume 95, Mean Corpuscular Hemoglobin 31, Mean Corpuscular Hemoglobin Concent 33, Red Cell Distribution Width 14.2, Platelet Count 303, Mean Platelet Volume 9.5, Sodium Level 138, Potassium Level 3.8, Chloride Level 101, Carbon Dioxide Level 25, Anion Gap 12, Blood Urea Nitrogen 6L, Creatinine 0.62, Estimat Glomerular Filtration Rate > 60, BUN/Creatinine Ratio 10, Glucose Level 106H, Calcium Level 8.9, Magnesium Level 1.6 Microbiology 04/18/20 MRSA Screen - Final, Complete MRSA not isolated Assessment/Plan Assessment/Plan Assess & Plan/Chief Complaint 1. Previous colostomy -Takedown with reanastomosis yesterday -Care under Dr. Sotomayor and Dr. Acevedo -I suspect she will have clear liquids today. 2. Hypertension -Currently she is normotensive but this will be monitored and home and started as necessary surgery reanastomose large intestine April 18, 202004/20 -will plan on restarting her antihypertensive medications Clinical Quality Measures DVT/VTE Risk/Contraindication: Risk Factor Score Per Nursin RFS Level Per Nursing on Admit: 4+=Very High GLADIS GRIGGS MD Apr 20, 2020 07:29
[2020-04-20 08:00] VITALS: BP 149/74
[2020-04-20] MEDS: lisINopril 20 MG (PRINIVIL) TABLET PO SCH (08:28)
[2020-04-20] MEDS: PANTOPRAZOLE 40 MG (PROTONIX) TAB PO SCH (08:28)
--- NOTE | 2020-04-20 08:30 | NUR ---
LORTAB PO FOR C/O GAS PAINS. ENC TO AMB AND CHAIR. PT REFUSED AT THIS TIME.
[2020-04-20] MEDS: LACTATED RINGERS 1,000 ML IV SCH ×2 (08:31→18:23)
[2020-04-20 12:00] VITALS: BP 136/71
--- NOTE | 2020-04-20 12:32 | NUR ---
SCDS OFF PT UP IN CHAIR.
--- NOTE | 2020-04-20 13:30 | NUR ---
LORTAB PO FOR PAIN.
--- NOTE | 2020-04-20 14:42 | NUR ---
"RD ASSESSMENT PMHx: HTN; GERD; pneumonia; PT INTERACTION: Pt was awake and pleasant during nutrition assessment. Pt states current appetite is so-so, and it had been that way for about 2-3d. Note avg PO intake 58% x1d, per chart review. Pt states following a regular diet at home, and has no issues with chewing/swallowing food. Pt states no recent issues with nausea, vomiting, constipation, or diarrhea, and that her last BM was 04/17. Note pt not currently on bowel regimen per chart review. Pt states some recent wt loss, but is unsure of amount/timeframe. Note recent 13# wt loss x3mon, per chart review. ABNORMAL NUTRITION-RELATED LAB VALUES LOW: BUN 6; HIGH: glu 106 Est. kcal needs: 0229-6760 kcal | 20-25 kcal/kg Est. Pro needs: 58-73 g Pro | 0.8-1.0 g Pro/kg PES STATEMENT: Inadequate oral intake (NI-2.1) related to loss of appetite as evidenced by pt interview and avg PO intake 58% x1d. INTERVENTION: Continue with current diet order of Clear Liquid diet. Would recommend diet advancement as medically able and as tolerated. Will continue to follow and reassess as pt needs, intake, and status change. Teresa Dinero, MS RD LD"
--- NOTE | 2020-04-20 15:00 | NUR ---
DR. TELLEZ HERE. PT REFUSES TO HAVE IVF DC'D EVEN THOUGH TAKING ADEQUATE ORAL. DR. TELLEZ MADE AWARE.
[2020-04-20 16:46] VITALS: BP 137/77
--- NOTE | 2020-04-20 18:15 | NUR ---
LORTAB PO FOR PAIN. HAS WALKED HALLS TWICE THIS PM.
[2020-04-20 19:11] VITALS: BP 148/76
[2020-04-20] MEDS ORDERED: ENOXAPARIN 40 MG/0.4 ML (LOVENOX) SYR SC SCH (21:15)
[2020-04-20] MEDS: morphine INJ 10 MG/ML 1ML (SYR OR VIAL) IVP PRN (21:43)
[2020-04-20 23:41] VITALS: BP 136/73
--- NOTE | 2020-04-21 02:14 | OPERATIVE REPORT ---
DATE OF SERVICE: 04/18/2020 PREOPERATIVE DIAGNOSIS: History of colon perforation. POSTOPERATIVE DIAGNOSIS: History of colon perforation. PROCEDURE: Laparoscopic colostomy reversal and lysis of adhesions, 1.5 hours. SURGEON: Stephany Sotomayor DO INORGANIC CHEMICAL TECHNICIAN: Dr. Acevedo, assisted in retraction, dissection and closure. ANESTHESIA: General. ESTIMATED BLOOD LOSS: Minimal. COMPLICATIONS: None. INDICATIONS: The patient is a 64-year-old female with history of colon perforation. She had to have Naya procedure. She understands risks and benefits of having this reverse. She understands and wishes to proceed. Consent was signed in the chart. DESCRIPTION OF PROCEDURE: The patient was taken to the operating suite. She was prepped and draped in sterile fashion. After the colostomy skin was closed, a 12 mm incision was made in the left upper quadrant. Cautery was used to dissect down to the fascia, which was then scored and divided. The muscle was divided. Posterior sheath was divided and the abdomen was then entered. The balloon trocar was inserted and pneumoperitoneum was achieved. Multiple adhesions throughout the entire abdomen were present. A window was created to where a 5 mm trocar was placed in the right upper quadrant. This was done under direct visualization of the laparoscope and a 2nd 5 mm trocar was placed in the right lower quadrant under direct visualization of the laparoscope. The patient had significant adhesions throughout the abdomen consistent with small bowel adherent to the abdominal wall as well. These were all began to be carefully dissected down with both sharp, blunt and cautery dissection and also using LigaSure as well. Once all the adhesions were taken down, the colostomy site was inspected. The adhesions were continued to be dissected around until this was mobilized up through the peritoneum. The patient also had significant adhesions present just inferior to this, which appears to be the distal stump from previous colon surgery. Once this was continued to be dissected down and mobilized, attention was then placed to the colostomy, which an elliptical incision was made around the site and cautery dissection was used to begin dividing the subcutaneous tissues away from the colostomy and dissecting carefully all the way down through the abdominal wall to the fascial opening, which then mobilized. The left colon was able to be brought out through the incision. The incision on the fascia was then divided slightly more medially to be visualized to the area that was significantly adherent to this area. This was able to be brought out through the incision inspected, appeared to have a slight serosal tear. Therefore, a 3-0 Vicryl was used to close that small serosal tear. This was placed back into the abdomen. The small bowel was then brought in through the incision as well and inspected. No evidence of any injury to the small bowel that had to be dissected off as well. A pursestring suture was placed at the distal portion of the colostomy. Scissors was used to amputate the distal portion. An anvil was placed into the colon and tied. The colon was then dissected, mobilizing any fat off of the portion of colon need to be stapled. This was tucked back into the abdomen. The fascial defect was then closed using 1-0 looped PDS in a running fashion. The abdomen was then reinsufflated. Dr. Acevedo went below to place the EEA stapler. He dilated the rectum sterilely and then the EEA stapler was then inserted. The anvil was then taken down to the stapler and the stapler was fired. Two good anastomotic rings were produced. There was no tension on the anastomosis. An air test was performed after the pelvis was infiltrated with fluid and no evidence of any leak was present. The abdomen was then irrigated with copious amounts of irrigation and suction. The abdomen was then washed and dried, and erin were placed at the incisions. The area was then washed and dried and sterile bandages were applied. The patient tolerated procedure well without any complications. She was taken to recovery room in stable condition. Job ID: [id number] DocumentID: [id number] Dictated Date: 04/20/2020 20:33:30 Back Tacker Date: 04/21/2020 02:13:36 Dictated By: STEPHANY SOTOMAYOR DO
[2020-04-21 04:00] VITALS: BP 163/84
[2020-04-21] MEDS: HYDROcodone/APAP 5 MG/325 MG (LORTAB) TAB PO PRN ×3 (04:32→15:56)
[2020-04-21] MEDS: LACTATED RINGERS 1,000 ML IV SCH (04:33)
[2020-04-21] MEDS: morphine INJ 10 MG/ML 1ML (SYR OR VIAL) IVP PRN (04:44)
[2020-04-21 05:18] LABS: HEMOGLOBIN 11.2 g/dL (11.5-16.0); MEAN PLATELET VOLUME 9.6 fL (9.0-12.2); WHITE BLOOD COUNT 7.3 10^3/uL (4.3-11.0)
[2020-04-21 05:32] LABS: CHLORIDE 99 MMOL/L (98-107); POTASSIUM 3.5 MMOL/L (3.6-5.0); SODIUM 137 MMOL/L (135-145)
[2020-04-21 05:33] LABS: CALCIUM 9.1 MG/DL (8.5-10.1)
[2020-04-21 05:34] LABS: GLUCOSE 95 MG/DL (70-105)
[2020-04-21 05:35] LABS: CARBON DIOXIDE 27 MMOL/L (21-32)
[2020-04-21 05:38] LABS: CREATININE SERUM 0.63 MG/DL (0.60-1.30); GFR ESTIMATED > 60
[2020-04-21 05:39] LABS: BUN/CREATININE RATIO 8
[2020-04-21 05:41] LABS: MAGNESIUM 1.7 MG/DL (1.6-2.4)
--- NOTE | 2020-04-21 07:32 | Progress Note ---
Subjective Date Seen by a Provider: Apr 21, 2020 Time Seen by a Provider: 07:05 Subjective/Events-last exam patient does have some discomfort this morning. Her discomfort is primarily abdominal. She has not passed any gas and certainly no BM. She is trying to be ambulatory as much as she can. Objective Exam Vital Signs Date Time Temp Pulse Resp B/P (MAP) Pulse Ox O2 Delivery O2 Flow Rate FiO2 04/21/20 04:00 37.1 88 20 163/84 (110) 95 Room Air 04/20/20 23:41 36.9 89 20 136/73 (94) 93 Room Air 04/20/20 20:05 Room Air 04/20/20 19:11 37.2 91 18 148/76 (100) 95 Room Air 04/20/20 16:46 36.9 91 19 137/77 (97) Room Air 04/20/20 12:00 36.0 86 18 136/71 (92) 97 Room Air 04/20/20 09:00 93 Room Air 04/20/20 08:00 36.8 93 18 149/74 (99) 93 Room Air I & O 04/21/20 07:00 Intake Total 3895 ml Output Total 1300 ml Balance 2595 ml Capillary Refill : Less Than 3 SecondsLess Than 3 Seconds General Appearance: Anxious (slight but no acute distress) Respiratory: Lungs Clear Cardiovascular: Regular Rate, Rhythm Gastrointestinal: distended (slight), other (bowel sounds not detected) Extremity: Normal Capillary Refill Results Lab Laboratory Tests 04/21/20 04:43: White Blood Count 7.3, Red Blood Count 3.61L, Hemoglobin 11.2L, Hematocrit 35, Mean Corpuscular Volume 96, Mean Corpuscular Hemoglobin 31, Mean Corpuscular Hemoglobin Concent 32, Red Cell Distribution Width 14.0, Platelet Count 310, Mean Platelet Volume 9.6, Sodium Level 137, Potassium Level 3.5L, Chloride Level 99, Carbon Dioxide Level 27, Anion Gap 11, Blood Urea Nitrogen 5L, Creatinine 0.63, Estimat Glomerular Filtration Rate > 60, BUN/Creatinine Ratio 8, Glucose Level 95, Calcium Level 9.1, Magnesium Level 1.7 Microbiology 04/18/20 MRSA Screen - Final, Complete MRSA not isolated Assessment/Plan Assessment/Plan Assess & Plan/Chief Complaint 1. Previous colostomy -Takedown with reanastomosis yesterday -Care under Dr. Sotomayor and Dr. Acevedo -I suspect she will have clear liquids today. 04/21 -managed by surgery -I also encouraged her to walk -- at least what she could tolerate 2. Hypertension -Currently she is normotensive but this will be monitored and home and started a s necessary surgery reanastomose large intestine April 18, 202004/20 -will plan on restarting her antihypertensive medications 04/21 -appears to be doing a little bit better with the lisinopril. Clinical Quality Measures DVT/VTE Risk/Contraindication: Risk Factor Score Per Nursin RFS Level Per Nursing on Admit: 4+=Very High GLADIS GRIGGS MD Apr 21, 2020 07:32
[2020-04-21 08:00] VITALS: BP 160/90
[2020-04-21] MEDS: lisINopril 20 MG (PRINIVIL) TABLET PO SCH (09:37)
[2020-04-21] MEDS: PANTOPRAZOLE 40 MG (PROTONIX) TAB PO SCH (09:37)
--- NOTE | 2020-04-21 11:50 | Progress Note - Surgery ---
Subjective Date Seen by a Provider: Apr 21, 2020 Time Seen by a Provider: 11:46 Subjective/Events-last exam Feeling good. Pain controlled with oral medication. Passing flatus. Tolerating diet. Denies n/v fever sweats chill shortness of breath or chest pain. Objective Exam Vital Signs Date Time Temp Pulse Resp B/P (MAP) Pulse Ox O2 Delivery O2 Flow Rate FiO2 04/21/20 09:00 93 Room Air 04/21/20 08:00 36.1 92 18 160/90 (113) 93 Room Air 04/21/20 04:00 37.1 88 20 163/84 (110) 95 Room Air 04/20/20 23:41 36.9 89 20 136/73 (94) 93 Room Air 04/20/20 20:05 Room Air 04/20/20 19:11 37.2 91 18 148/76 (100) 95 Room Air 04/20/20 16:46 36.9 91 19 137/77 (97) Room Air 04/20/20 12:00 36.0 86 18 136/71 (92) 97 Room Air I & O 04/21/20 07:00 Intake Total 3895 ml Output Total 1300 ml Balance 2595 ml Capillary Refill : Less Than 3 SecondsLess Than 3 Seconds General Appearance: No Apparent Distress HEENT: PERRL/EOMI, Normal ENT Inspection Neck: Normal Inspection, Supple Respiratory: Lungs Clear, No Accessory Muscle Use, No Respiratory Distress Cardiovascular: Regular Rate, Rhythm, No Edema Gastrointestinal: soft, tenderness (incisional, clean dry intact no signs of infection), other Extremity: Normal Capillary Refill Neurologic/Psychiatric: Alert, Oriented x3, No Motor/Sensory Deficits, Normal Mood/Affect Skin: Normal Color, Warm/Dry Lymphatic: No Adenopathy Results Lab Laboratory Tests 04/21/20 04:43: White Blood Count 7.3, Red Blood Count 3.61L, Hemoglobin 11.2L, Hematocrit 35, Mean Corpuscular Volume 96, Mean Corpuscular Hemoglobin 31, Mean Corpuscular Hemoglobin Concent 32, Red Cell Distribution Width 14.0, Platelet Count 310, Mean Platelet Volume 9.6, Sodium Level 137, Potassium Level 3.5L, Chloride Level 99, Carbon Dioxide Level 27, Anion Gap 11, Blood Urea Nitrogen 5L, Creatinine 0.63, Estimat Glomerular Filtration Rate > 60, BUN/Creatinine Ratio 8, Glucose Level 95, Calcium Level 9.1, Magnesium Level 1.7 Microbiology 04/18/20 MRSA Screen - Final, Complete MRSA not isolated Assessment/Plan Assessment/Plan Assessment/Plan s/p lap colostomy reversal, lysis of adhesions hypertension history of colon perforation patient doing well today, tolerating diet and having bowel function discussed with patient and wanting to go home will dc home instructed to slowly advance diet as tolerates continue using incentive spirometer. Clinical Quality Measures DVT/VTE Risk/Contraindication: Risk Factor Score Per Nursin RFS Level Per Nursing on Admit: 4+=Very High STEPHANY TELLEZ DO Apr 21, 2020 11:50
[2020-04-21] MEDS ORDERED: HYDR-4226 PO (11:51)
--- NOTE | 2020-04-21 11:52 | Discharge Inst-Simple/Standard ---
Discharge Inst-Standard Discharge Medications New, Converted or Re-Newed RX: RX on Chart Patient Instructions/Follow Up Plan of Care/Instructions/FU: [address] Sotomayor [address] Martin Activity as Tolerated: No Discharge Diet: Liquid Diet (slowly advance as tolerates) Other Inst to Patient Follow up Appt: Make appointment for [address] Martin and Светлана Instructions: No lifting greater than 10 pounds. No strenuous activity. May shower in 24 hours, no tub bath or soaking. Use incentive spirometer at home as directed. No Smoking Skin/Wound Care: You have special glue over your incision that will fall off on it's own. Symptoms to Report: Appetite Changes, Extremity Discoloration, Numbness/Tingling, Swelling Increased, Bleeding Excessive, Eyesight Changes, Pain Increased, Urine Color Ch heather, Constipation(Persistent), Fever over 101 degree F, Pain/Pressure in chest, Urinating Difficulty, Cough Up/Vomit Blood, Heart Beat Irreg/Pounding, Pain/Pressure in jaw, Vaginal Bleeding Increase, Cramps in feet or legs, Lightheadedness, Pain/Pressure in shoulder, Diarrhea(Persistent), Memory Changes Suddenly, Questions/Concerns, Weight gain consecutive days, Dizziness/Fainting, Nausea/Vomiting, Shortness of Breath, Weight gain over 2 pounds If questions or concerns contact your physician Or seek help at emergency department. STEPHANY SOTOMAYOR DO Apr 21, 2020 11:52
[2020-04-21 12:00] VITALS: BP 162/74
[2020-04-21 16:20] VITALS: BP 162/74
== END 2020-04-21 16:20 | disposition home or self-care (01) | DRG 337 ==
LOC: 4TH 10:09
PROVIDERS: ADMIT Surgery; ATTEND Surgery
PROC: 0DNW4ZZ Release Peritoneum, Percutaneous Endoscopic Approach (ICD-10-PCS; 2020-04-18)
PROC: 0DSM4ZZ Reposition Descending Colon, Percutaneous Endoscopic Approach (ICD-10-PCS; principal; 2020-04-18 12:48)
DX: Z43.3 Encounter for attention to colostomy (principal); I10 Essential (primary) hypertension; K66.0 Peritoneal adhesions (postprocedural) (postinfection)
CPT/HCPCS: 36415; 80048; 80053; 83735; 85025; 85027; 86850; 86900; 86901; 87081; 88304; 94640; 94664; 94760

== ENCOUNTER → 2020-06-19 | Outpatient (CLI) | payer MEDICARE ==
[~2020-06-19] MED LIST changes: +ACET325T38 PO; +BRIM2.5D OP; +HYDR-4226 PO
--- NOTE | 2020-06-19 09:22 | Diagnostic Imaging Report ---
INDICATION: Postmenopausal female. History of fracture as an adult without significant trauma. COMPARISON: None FINDINGS: AP Spine L1-L4: [BMD (g/cm2): 1.057] [T-Score: -1.2] [Z-Score: 0.2] [BMD Previous: na] [BMD % Change: na] LT Hip Neck: [BMD (g/cm2): 0.806] [T-Score: -1.7] [Z-Score: -0.3] LT Hip Total: [BMD (g/cm2):0.871] [T-Score:-1.1] [Z-Score: 0.0] [BMD Previous: na] [BMD % Change: na] RT Hip Neck: [BMD (g/cm2):0.888] [T-Score:-1.1] [Z-Score:0.3] RT Hip Total: [BMD (g/cm2):0.887] [T-score:-1.0] [Z-Score:0.1] [BMD Previous:na] [BMD % Change:na] *Indicates significant change from prior examination based on 95% confidence level. World Health Organization criteria for BMD interpretation classify patients as Normal (T-score at or above -1.0), Osteopenic (T-score between -1.0 and -2.5) or Osteoporotic (T-score at or below -2.5). LIMITATIONS AND MODIFICATION: None. FRACTURE RISK (FRAX SCORE): The ten year probability of (%): Major Osteoporotic Fracture: [15.7] Hip Fracture: [2.0] IMPRESSION: 1. Osteopenia (Low bone mass). 2. Baseline examination. 3. See below National Osteoporosis Foundation guidelines on when to potentially initiate pharmacologic therapy. Based on the National Osteoporosis Foundation Guidelines, pharmacologic treatment should be initiated in any of the following, unless clinical conditions suggest otherwise: * Any patient with prior fragility fracture of the hip or vertebrae. A spine fracture indicates 5X risk for subsequent spine fracture and 2X risk for subsequent hip fracture. * Osteoporosis (T-score <-2.5). * Postmenopausal women and men age 50 and older with low bone mass/osteopenia (T-score between -1.0 and -2.5) by DXA and 10-year major osteoporotic fracture greater than 20% or a 10-year probability of hip fracture greater than 3%. These fracture risks are supplied above in the FRAX score, if applicable. * Clinician judgement and/or patient preferences may indicate treatment for people with 10-year fracture probabilities above or below these levels. Dictated by: Dictated on workstation # [id number]
--- NOTE | 2020-06-19 09:55 | Diagnostic Imaging Report ---
EXAMINATION: Digital mammogram bilateral screening with CAD. INDICATION: Screening. COMPARISON: This study was compared to the prior exam of 12/19/2015. PERSONAL HISTORY: At this time, there are no current complaints. FINDINGS: The fibroglandular tissue in both breasts is heterogeneously dense. This does limit the sensitivity of this exam. Overall, there does not appear to have been any significant change when compared to the prior study. No primary or secondary sign of malignancy is noted. IMPRESSION: 1. There is no radiographic evidence for malignancy. 2. The patient should have her annual bilateral screening mammogram on schedule in June 2021. ACR BI-RADS Category 1: Negative. Result letter will be mailed to the patient. Note: At least 10% of breast cancer is not imaged by mammography. Dictated by: Dictated on workstation # [id number]
== END ==
LOC: RAD 08:30
PROVIDERS: ATTEND Family Medicine
DX: Z12.31 Encounter for screening mammogram for malignant neoplasm of breast (principal); M85.88 Other specified disorders of bone density and structure, other site; Z78.0 Asymptomatic menopausal state; Z87.81 Personal history of (healed) traumatic fracture
CPT/HCPCS: 77063; 77067; 77080

== ENCOUNTER → 2020-06-26 | Outpatient (CLI) | payer MEDICARE ==
--- NOTE | 2020-06-26 16:01 | Diagnostic Imaging Report ---
INDICATION: Pain status post injury. COMPARISON: None. FINDINGS: Two views of the right hip were obtained and show no fractures, dislocations, or other acute bony abnormalities. Mild degenerative changes are noted. The soft tissues appear unremarkable. No radiopaque foreign bodies are identified. IMPRESSION: Mild degenerative changes, but no acute fracture or dislocation of the right hip. Dictated by: Dictated on workstation # [id number]
== END ==
LOC: RAD 13:27
PROVIDERS: ATTEND Family Medicine
DX: M16.11 Unilateral primary osteoarthritis, right hip (principal)
CPT/HCPCS: 73502

== ENCOUNTER 2020-11-27 05:39 | Outpatient (CLI) | payer MEDICARE ==
[~2020-11-27] VITALS: Ht 160 cm; Wt 71.7 kg
[~2020-11-27 05:39] MED LIST changes: -CIPR500T4 PO; +CIPR500T5 PO; -DOCU-238 PO; +DOCU-241 PO; -LISI-552 PO; +LISI20TA26 PO
[2020-11-28] MEDS ORDERED: ATOR20TA49 PO (09:36)
[2020-11-28] MEDS ORDERED: CALC-823 PO (09:36)
[2020-11-28] MEDS ORDERED: GLUC-132 PO (09:36)
== END 2020-11-28 10:17 | disposition home or self-care (01) ==
LOC: PREOP 05:39
PROVIDERS: ATTEND Surgery
DX: Z01.818 Encounter for other preprocedural examination (principal)

== ENCOUNTER 2020-12-04 08:36 | Day surgery (SDC) | payer MEDICARE ==
[~2020-12-04] VITALS: Ht 160 cm; Wt 71.7 kg
[~2020-12-04 08:36] MED LIST changes: +ATOR20TA49 PO; +CALC-823 PO; -DOCU-241 PO; +DOCU-26 PO; +DOXY-311 PO; -DOXY100C42 PO; +GLUC-132 PO
[2020-12-04] MEDS ORDERED: LACTATED RINGERS 1,000 ML IV STA (08:37)
[2020-12-04] MEDS ORDERED: LACTATED RINGERS 1,000 ML IV ONE (08:43)
[2020-12-04 08:50] VITALS: BP 150/84
--- NOTE | 2020-12-04 09:52 | Progress Note-Pre Operative ---
Pre-Operative Progress Note H&P Reviewed The H&P was reviewed, patient examined and no changes noted. Date Seen by Provider: Dec 04, 2020 Time Seen by Provider: 09:51 Date H&P Reviewed: Dec 04, 2020 Time H&P Reviewed: 09:51 Pre-Operative Diagnosis: history of polyps STEPHANY TELLEZ DO Dec 04, 2020 09:52
[2020-12-04] MEDS ORDERED: proPOfol 200 MG/20 ML (DIPRIVAN) VIAL IV ONE (10:19)
--- NOTE | 2020-12-04 10:48 | Progress Note-Post Operative ---
Post-Operative Progess Note Surgeon (s)/Fountain Operator (s) Surgeon STEPHANY TELLEZ DO Fountain Operator: na Pre-Operative Diagnosis history of polyps Post-Operative Diagnosis colon polyps Procedure & Operative Findings Date of Procedure 12/04/20 Procedure Performed/Findings colonoscopy c hot bx polypectomy x 3 Anesthesia Type per mda Estimated Blood Loss Estimated blood loss (mL): na Specimens/Packing Specimens Removed colon polyps STEPHANY TELLEZ DO Dec 04, 2020 10:48
--- NOTE | 2020-12-04 10:49 | Discharge Inst-Simple/Standard ---
Discharge Inst-Standard Patient Instructions/Follow Up Plan of Care/Instructions/FU: 2-3 weeks Светлана Activity as Tolerated: Yes Discharge Diet: Regular Diet STEPHANY TELLEZ DO Dec 04, 2020 10:49
[2020-12-04 10:50] VITALS: BP_SYST 137; BP_SYST 138; BP_DIAS 81; BP_DIAS 87
[2020-12-04 11:15] VITALS: BP 144/76
--- NOTE | 2020-12-04 12:35 | Anesthesia-General Post-Op ---
MAC Patient Condition Mental Status/LOC: Same as Preop Cardiovascular: Satisfactory Nausea/Vomiting: Absent Respiratory: Satisfactory Pain: Controlled Complications: Absent Post Op Complications Complications None Follow Up Care/Instructions Patient Instructions None needed. Anesthesiology Discharge Order Discharge Order Patient was seen after the procedure and she was doing well, no complaints, stable vital signs, no apparent adverse anesthesia problems. JES MELENDEZ DO Dec 04, 2020 12:35
--- NOTE | 2020-12-04 15:16 | OPERATIVE REPORT ---
DATE OF SERVICE: 12/04/2020 PREOPERATIVE DIAGNOSIS: History of polyps. POSTOPERATIVE DIAGNOSIS: Colon polyps. PROCEDURE: Colonoscopy with hot biopsy polypectomy x3. SURGEON: Stephany Sotomayor DO ANESTHESIA: Per MDA. ESTIMATED BLOOD LOSS: None. COMPLICATIONS: None. INDICATIONS: The patient is a 65-year-old female with history of polyps and colonoscopy. She understands risks and benefits of procedure and wished to proceed with procedure. Consent was signed in the chart. DESCRIPTION OF PROCEDURE: The patient was taken to the endoscopy suite, placed in left lateral recumbent position. Timeout was performed. Digital rectal exam was performed. There were no palpable polyps, masses or ulcerations. Scope was inserted in the rectum, advanced all the way to cecum with minimal difficulty. Prep was adequate. Scope was then slowly retracted back. There were no polyps, masses or ulcerations within the cecum, ascending, transverse and descending colon. In sigmoid colon at the anastomosis appears to be two inflammatory polyps, hot biopsy polypectomy was performed on these. Scope was then continuously slowly retracted back into the rectum where another small polyp was present, which hot biopsy polypectomy was performed. Scope was retroflexed. No other pathology noted. Scope was returned to its normal position, slowly withdrawn until completely removed. The patient tolerated procedure well without any complications. She was taken to recovery room in stable condition. RECOMMENDATIONS: The patient will recommend repeat colonoscopy in 3 to 5 years. Any issues before that be seen at that time. The patient will follow up on pathology. Job ID: [id number] DocumentID: [id number] Dictated Date: 12/04/2020 10:51:17 Contact [employer] Date: 12/04/2020 15:15:45 Dictated By: STEPHANY SOTOMAYOR DO
== END 2020-12-04 11:55 | disposition home or self-care (01) ==
LOC: ENDO 08:36
PROVIDERS: ATTEND Surgery
DX: Z12.11 Encounter for screening for malignant neoplasm of colon (principal); D12.8 Benign neoplasm of rectum; I10 Essential (primary) hypertension; K21.9 Gastro-esophageal reflux disease without esophagitis; Z90.49 Acquired absence of other specified parts of digestive tract; Z85.9 Personal history of malignant neoplasm, unspecified; Z87.891 Personal history of nicotine dependence; Z79.899 Other long term (current) drug therapy

== ENCOUNTER 2021-02-05 03:54 | Emergency (ER) | payer MEDICARE ==
[~2021-02-05] VITALS: Ht 160 cm; Wt 71.7 kg
[2021-02-05 04:00] VITALS: BP 179/115
[2021-02-05] MEDS ORDERED: KETOROLAC 30 MG/ML VIAL IVP STA (04:09)
[2021-02-05] MEDS ORDERED: LACTATED RINGERS 1,000 ML IV ONE ×2 (04:15→06:15)
--- NOTE | 2021-02-05 04:16 | ED Abdominal Pain ---
General Chief Complaint: Abdominal/GI Problems Stated Complaint: UPPER ABD PAIN & BACK PAIN Source of Information: Patient (RAVIN KONG DO) History of Present Illness Date Seen by Provider: Feb 05, 2021 Time Seen by Provider: 04:00 Initial Comments PT ARRIVES VIA POV FROM HOME C/O SEVERE PAIN IN RIGHT UPPER QUADRANT AND RIGHT FLANK/RIGHT MID BACK AREA PAIN ONGOING FOR 2-3 DAYS, AND GETTING WORSE SINCE YESTERDAY MORNING NO NAUSEA/VOMITING PT HAS ONGOING CONSTIPATION, ESPECIALLY THE LAST 2 WEEKS, AND HAS NOT HAD A BM IN 4 DAYS ( NOT COMPLETELY UNUSUAL FOR PT), TOOK MIRALAX YESTERDAY AT 1430 WITH OUT BM, BUT IS PASSING GAS. STATES SHE LAST HAD A BM ON Thursday02/01/21--WAS VERY NARROW IN DIAMETER AND WAS A VERY SMALL BM NO URINARY SYMPTOMS NO FEVER PAIN IS WORSE WITH MOVEMENT NO CHEST PAIN NO SHORTNESS OF BREATH NO COUGH NO RASH NO HISTORY OF SIMILAR PT HAD A COLON RESECTION WITH COLOSTOMY FOR DIVERTICULITIS A YEAR AGO, AND HAD A TAKE DOWN OF COLOSTOMY 04/2020 HAS HAD ONE OVARY REMOVED TOOK HYDROCODONE AN HOUR AGO WITHOUT RELIEF NO FEVER OR RECENT ILLNESS PT HAS NOT HAD COVID-19 VACCINE NO KNOWN SICK CONTACTS PT ATE LUNCH YESTERDAY, HAD RICE PUDDING AT 1930, AND HAD WINE AT 2130 LAST PM PCP: DR. GRIGGS SURGEON: DR. TELLEZ (RAVIN KONG DO) Allergies and Home Medications Allergies Coded Allergies: No Known Drug Allergies (Unverified , 04/13/20) Home Medications Atorvastatin Calcium 40 Mg Tablet, 40 MG PO DAILY, (Reported) Atorvastatin Calcium 20 Mg Tablet, 20 MG PO DAILY, (Reported) Calcium Carbonate 500 Mg Tablet, 500 MG PO DAILY, (Reported) Cholecalciferol (Vitamin D3) 25 Mcg Capsule, 25 MCG PO DAILY, (Reported) Docusate Sodium 100 Mg Capsule, 100 MG PO BID, (Reported) Glucosamine/D3/Boswellia Aggie 1 Each Tablet, 1 EACH PO DAILY, (Reported) Multivitamin 1 Each Tablet, 1 EACH PO DAILY, (Reported) Oxycodone HCl/Acetaminophen 1 Each Tablet, 1-2 TAB PO Q4H PRN for PAIN- BREAKTHROUGH Prescribed by: JANAY HOPKINS on 02/05/21 1006 Pantoprazole Sodium 40 Mg Tablet., 40 MG PO DAILY, (Reported) Vitamin E (Dl,Tocopheryl Acet) 450 Mg Capsule, 450 MG PO DAILY, (Reported) Patient Home Medication List Home Medication List Reviewed: Yes (JANAY HOPKINS) Review of Systems Review of Systems Constitutional: no symptoms reported Respiratory: No Symptoms Reported Cardiovascular: No Symptoms Reported Gastrointestinal: See HPI, Abdominal Pain, Constipated; Denies Nausea, Denies Vomiting Genitourinary: No Symptoms Reported Musculoskeletal: see HPI, back pain Skin: no symptoms reported Psychiatric/Neurological: No Symptoms Reported Endocrine: No Symptoms Reported Hematologic/Lymphatic: No Symptoms Reported (RAVIN KONG DO) Past Fitxtoa-Wnovxl-Ofvdih Hx Patient Social History Tobacco Use?: Yes (SMOKED 1 PPD, QUIT 2019) Tobacco type used: Cigarettes Smoking Status: Former Smoker Substance use?: No Alcohol Use?: Yes (1-2 GLASSES OF WINE EVERY DAY) Alcohol type: Wine Alcohol Frequency: Daily (RAVIN KONG DO) Immunizations Up To Date Tetanus Booster (TDap): More than 5yrs PED Vaccines UTD: No (RAVIN KONG DO) Seasonal Allergies Seasonal Allergies: No (RAVIN KONG DO) Past Medical History Surgery/Hospitalization HX: COLONOSCOPIES/POLYPECTOMIES--LAST ONE 12/04/20 COLON RESECTION WITH COLOSTOMY FOR DIVERTICULITIS, AND TAKE DOWN OF COLOSTOMY 04/[address] 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 Sexually Transmitted Disease: No HIV/AIDS: No Genitourinary: No Gastrointestinal: Yes (COLON RESECTION/COLOSTOMY/[place]) Gastroesophageal Reflux, Chronic Constipation, Diverticulosis Musculoskeletal: Yes (CHRONIC HIP PAIN ) Arthritis, Chronic Back Pain Endocrine: No HEENT: Yes (dry eye syndrome) Loss of Vision: Denies Hearing Impairment: Denies Cancer: No Psychosocial: No Integumentary: No Blood Disorders: No Adverse Reaction/Blood Tranf: No (N/A) (RAVIN KONG DO) Family Medical History Hypertension 19 MOTHER No Pertinent Family Hx (RAVIN KONG DO) Physical Exam Vital Signs Vital Signs - First Documented 02/05/21 04:00 Temp 36.8 Pulse 93 Resp 28 B/P (MAP) 179/115 (136) Pulse Ox 98 O2 Delivery Room Air (JANAY HOPKINS) Vital Signs Capillary Refill : (RAVIN KONG DO) Height/Weight/BMI Height: 5'3.00" Weight: 157lbs. 0.0oz. 71.305775ot; 28.00 BMI Method:Stated General Appearance: WD/WN, other (MOANING) Respiratory: normal breath sounds, no respiratory distress, no accessory muscle use Cardiovascular: regular rate, rhythm, no murmur Gastrointestinal: abnormal bowel sounds (DECREASED) Extremities: normal inspection Neurologic/Psychiatric: manager state II-XII nml as tested, no motor/sensory deficits, alert, oriented x 3 Skin: normal color, warm/dry; No rash (RAVIN KONG ) Progress/Results/Core Measures Results/Orders Lab Results Laboratory Tests Test 02/05/21 02:45 02/05/21 04:45 Range/Units White Blood Count 9.2 4.3-11.0 10^3/uL Red Blood Count 4.61 3.80-5.11 10^6/uL Hemoglobin 14.8 11.5-16.0 g/dL Hematocrit 45 35-52 % Mean Corpuscular Volume 97 80-99 fL Mean Corpuscular Hemoglobin 32 25-34 pg Mean Corpuscular Hemoglobin Concent 33 32-36 g/dL Red Cell Distribution Width 12.6 10.0-14.5 % Platelet Count 433 H 130-400 10^3/uL Mean Platelet Volume 9.7 9.0-12.2 fL Immature Granulocyte % (Auto) 0 % Neutrophils (%) (Auto) 62 42-75 % Lymphocytes (%) (Auto) 27 12-44 % Monocytes (%) (Auto) 7 0-12 % Eosinophils (%) (Auto) 3 0-10 % Basophils (%) (Auto) 1 0-10 % Neutrophils # (Auto) 5.7 1.8-7.8 10^3/uL Lymphocytes # (Auto) 2.5 1.0-4.0 10^3/uL Monocytes # (Auto) 0.6 0.0-1.0 10^3/uL Eosinophils # (Auto) 0.3 0.0-0.3 10^3/uL Basophils # (Auto) 0.1 0.0-0.1 10^3/uL Immature Granulocyte # (Auto) 0.0 0.0-0.1 10^3/uL Sodium Level 136 135-145 MMOL/L Potassium Level 5.5 H 3.6-5.0 MMOL/L Chloride Level 100 98-107 MMOL/L Carbon Dioxide Level 24 21-32 MMOL/L Anion Gap 12 5-14 MMOL/L Blood Urea Nitrogen 18 7-18 MG/DL Creatinine 0.85 0.60-1.30 MG/DL Estimat Glomerular Filtration Rate 67 BUN/Creatinine Ratio 21 Glucose Level 101 70-105 MG/DL Calcium Level 11.1 H 8.5-10.1 MG/DL Corrected Calcium 10.7 H 8.5-10.1 MG/DL Total Bilirubin 0.7 0.1-1.0 MG/DL Aspartate Amino Transf (AST/SGOT) 60 H 5-34 U/L Alanine Aminotransferase (ALT/SGPT) 23 0-55 U/L Alkaline Phosphatase 112 40-136 U/L Total Protein 8.9 H 6.4-8.2 GM/DL Albumin 4.5 3.2-4.5 GM/DL Amylase Level 48 25-125 U/L Lipase 47 8-78 U/L Serum Alcohol < 10 <10 MG/DL Urine Color YELLOW Urine Clarity CLEAR Urine pH 8.0 5-9 Urine Specific [place] 1.010 L 1.016-1.022 Urine Protein NEGATIVE NEGATIVE Urine Glucose (UA) NEGATIVE NEGATIVE Urine Ketones NEGATIVE NEGATIVE Urine Nitrite NEGATIVE NEGATIVE Urine Bilirubin NEGATIVE NEGATIVE Urine Urobilinogen 0.2 < = 1.0 MG/DL Urine Leukocyte Esterase TRACE H NEGATIVE Urine RBC (Auto) NEGATIVE NEGATIVE Urine RBC NONE /HPF Urine WBC 0-2 /HPF Urine Crystals NONE /LPF Urine Bacteria TRACE /HPF Urine Casts NONE /LPF Urine Mucus NEGATIVE /LPF Urine Culture Indicated NO (JANAY HOPKINS) My Orders Orders - JANAY HOPKINS Fentanyl Inj (Sublimaze Injection) (02/05/21 08:00) Diatrizoate Meglum/Sodium 37% (Gastrogra (02/05/21 08:30) Fentanyl Inj (Sublimaze Injection) (02/05/21 09:30) Fentanyl Inj (Sublimaze Injection) (02/05/21 10:45) (JANAY HOPKINS) Medications Given in ED Current Medications Medications Dose Ordered Sig/[place] Route Start Time Stop Time Status Last Admin Dose Admin Diatrizoate Meglum/ Diatrizoate Sod 30 ml ONCE ONCE PO 02/05/21 08:30 02/05/21 08:31 DC 02/05/21 08:50 60 ML Fentanyl Citrate 50 mcg ONCE ONCE IVP 02/05/21 08:00 02/05/21 08:01 DC 02/05/21 07:57 50 MCG Fentanyl Citrate 50 mcg ONCE ONCE IVP 02/05/21 09:30 02/05/21 09:31 DC 02/05/21 09:33 50 MCG Fentanyl Citrate 50 mcg ONCE ONCE IVP 02/05/21 10:45 02/05/21 10:46 DC 02/05/21 10:43 50 MCG (JANAY HOPKINS) Vital Signs/I&O 02/05/21 04:00 Temp 36.8 Pulse 93 Resp 28 B/P (MAP) 179/115 (136) Pulse Ox 98 O2 Delivery Room Air (JANAY HOPKINS) Progress Progress Note : Progress Note GAVE TORADOL WITH OUT RELIEF GAVE FENTANYL WITH MODERATE RELIEF CARE TURNED OVER TO DR. HOPKINS AT SHIFT CHANGE, CT WITH ORAL AND RECTAL CONTRAST PENDING (RAVIN KONG DO) Progress Note : Time: 10:06 Progress Note Reached out to oncology and recommended follow-up this week if possible. They said there schedule is full and they will try and work on finding an appointment for her. We reached out to the primary care provider and he says he will keep working on getting her appropriate work-up. (JANAY HOPKINS) Diagnostic Imaging Comments CT ABDOMEN/PELVIS--PER [facility] VIA FAX AT 6789 PRIOR SIGMOID COLECTOMY WITH INTACT ANASTAMOSIS , STOOL FILLED AND GAS FILLED LARGE BOWEL UPSTREAK. POST OPERATIVE STRICTURING IS NOT EXCLUDED. ABDOMEN XRAYS--LARGE AMOUNT OF GAS AND STOOL IN COLON--PENDING RADIOLOGIST REVIEW Reviewed: Reviewed by Me (RAVNI KONG DO) Diagonstic Imaging: CT Plain Films/CT/US/NM/MRI: abdomen, pelvis Comments [facility] [place], [place] NAME: RICKY SIEGEL REC#: [id number] PT STATUS: REG ER : 1955 PHYSICIAN: RAVIN KONG DO ADMIT DATE: 02/05/21/ER Draft Date of Exam:02/05/21 CT ABDOMEN/PELVIS WO EXAMINATION: CT abdomen and pelvis without contrast. TECHNIQUE: Multiple contiguous axial images were obtained through the abdomen and pelvis without the use of intravenous contrast. All CT scans use one or more of the following dose optimizing techniques: automated exposure control, MA and/or KvP adjustment based on patient size and exam type or iterative reconstruction. HISTORY: Abdominal pain COMPARISON: Same day FINDINGS: Limited views of the lower thorax are unremarkable. 2 mm right liver lesion measures fluid attenuation consistent with a cyst. There is no biliary ductal dilation. Gallbladder is normal. Pancreas is normal. Spleen is normal. Adrenal glands are normal. The kidneys are normal. There is no hydronephrosis. Urinary bladder is normal. Both rectal and oral contrast were administered. The anastomosis in the sigmoid colon is widely patent with passage of contrast through the anastomosis and no evidence of stricturing. No evidence of bowel obstruction is seen. No bowel inflammation. No free fluid or air. No abdominal or pelvic lymphadenopathy. Aorta is normal in caliber without aneurysm. Again seen is extensive osseous metastatic disease. This includes T9 where there is replacement of the spinous process and likely epidural extension of tumor resulting in spinal canal stenosis. There is extensive involvement of the right acetabulum with a lytic lesion. IMPRESSION: 1. . Sigmoid colon anastomosis is widely patent without stricture. No bowel obstruction is present. 2. Extensive osseous metastatic disease with likely epidural extension of tumor at T9 resulting in spinal canal stenosis. 3. Extensive involvement of the right acetabulum with a lytic lesion placing the patient at risk for pathologic fracture of the right acetabulum. Dictated on workstation # [id number] Dict: 02/05/21 0853 Trans: 02/05/21 0901 [facility] [id number] Interpreted by: ALEXANDRO DE LEON MD Electronically signed by: Reviewed: Reviewed by Mi (JANAY HOPKINS) Departure Communication (Admissions) 1657--SPOKE WITH DR. TELLEZ, ADVISES TO DO CT WITH ORAL GASTROGRAFFIN AND RECTAL CONTRAST. (RAVIN KONG DO) Communication (PCP) Dr Griggs: Left 0943; 1005: Made contact and brought him up to speed. He plans to see the patient this week and will try and get her in with cancer center. (JANAY HOPKINS) Impression Primary Impression: Bone lesion Additional Impression: Complete lesion at T9 level of thoracic spinal cord Disposition: 01 HOME, SELF-CARE Condition: Stable Departure-Patient Inst. Decision time for Depature: 09:46 (JANAY HOPKINS) Referrals: GLADIS GRIGGS MD (PCP/Family) Primary Care Physician Patient Instructions: Bone Metastasis Add. Discharge Instructions: Call Dr. Griggs and request follow-up appointment sometime this week. He will help you get set up for further appropriate imaging and biopsy. He can help get you a referral to oncology. All discharge instructions reviewed with patient and/or family. Voiced understanding. Scripts Oxycodone HCl/Acetaminophen (Percocet 5-325 mg Tablet) 1 Each Tablet 1-2 TAB PO Q4H PRN for PAIN-BREAKTHROUGH MDD 6 TABS for 7 Days, #30 TAB 0 Refills Prov: JANAY HOPKINS 02/05/21 Work/School Note: Work Release Form Date Seen in the Emergency Department: Feb 05, 2021 Return to Work: Feb 11, 2021 Restrictions: No Restrictions RAVIN KONG DO Feb 05, 2021 04:16 JANAY HOPKINS Feb 05, 2021 09:22
[2021-02-05 04:21] LABS: BASOPHILS # (AUTO) 0.1 10^3/uL (0.0-0.1); BASOPHILS % (AUTO) 1 % (0-10); EOSINOPHILS # (AUTO) 0.3 10^3/uL (0.0-0.3); EOSINOPHILS % (AUTO) 3 % (0-10); HEMATOCRIT 45 % (35-52); HEMOGLOBIN 14.8 g/dL (11.5-16.0); LYMPHOCYTES # (AUTO) 2.5 10^3/uL (1.0-4.0); LYMPHOCYTES % (AUTO) 27 % (12-44); MEAN CORPUSCULAR HEMOGLOBIN 32 pg (25-34); MEAN CORPUSCULAR HGB CONC 33 g/dL (32-36); MEAN CORPUSCULAR VOLUME 97 fL (80-99); MEAN PLATELET VOLUME 9.7 fL (9.0-12.2); MONOCYTES # (AUTO) 0.6 10^3/uL (0.0-1.0); MONOCYTES % (AUTO) 7 % (0-12); NEUTROPHILS # (AUTO) 5.7 10^3/uL (1.8-7.8); NEUTROPHILS % (AUTO) 62 % (42-75); PLATELET COUNT 433 10^3/uL (130-400); WHITE BLOOD COUNT 9.2 10^3/uL (4.3-11.0)
[2021-02-05 04:32] LABS: ALBUMIN 4.5 GM/DL (3.2-4.5); CHLORIDE 100 MMOL/L (98-107); POTASSIUM 5.5 MMOL/L (3.6-5.0); SODIUM 136 MMOL/L (135-145)
[2021-02-05 04:33] LABS: AMYLASE 48 U/L (25-125); CALCIUM 11.1 MG/DL (8.5-10.1)
[2021-02-05 04:35] LABS: GLUCOSE 101 MG/DL (70-105); TOTAL PROTEIN 8.9 GM/DL (6.4-8.2)
[2021-02-05 04:36] LABS: BILIRUBIN,TOTAL 0.7 MG/DL (0.1-1.0); CARBON DIOXIDE 24 MMOL/L (21-32)
[2021-02-05 04:38] LABS: ALKALINE PHOSPHATASE 112 U/L (40-136); CREATININE SERUM 0.85 MG/DL (0.60-1.30); GFR ESTIMATED 67
[2021-02-05 04:39] LABS: BUN/CREATININE RATIO 21
[2021-02-05 04:41] LABS: ALANINE AMINOTRANSFERASE 23 U/L (0-55)
[2021-02-05 04:42] LABS: LIPASE 47 U/L (8-78)
[2021-02-05 04:59] LABS: BILIRUBIN,URINE NEGATIVE (NEGATIVE); CLARITY,URINE CLEAR; COLOR,URINE YELLOW; GLUCOSE, URINE (UA) NEGATIVE (NEGATIVE); KETONES,URINE NEGATIVE (NEGATIVE); LEUKOCYTE ESTERASE ,URINE TRACE (NEGATIVE); NITRITE,URINE NEGATIVE (NEGATIVE); PROTEIN,URINE NEGATIVE (NEGATIVE)
[2021-02-05 05:06] LABS: BACTERIA,URINE TRACE /HPF; WBC,URINE 0-2 /HPF
[2021-02-05] MEDS ORDERED: fentaNYL INJ 100 MCG/2 ML AMP IVP ONE ×4 (05:15→10:45)
--- NOTE | 2021-02-05 06:14 | Diagnostic Imaging Report ---
INDICATION: Right upper quadrant and right flank pain with constipation x3 days. TECHNIQUE: Single view chest with supine and upright radiographs of the abdomen. CORRELATION STUDY: None FINDINGS: Frontal radiograph of the chest demonstrates no acute abnormality. Scattered gas-filled loops of bowel throughout the abdomen are present. This includes gas in colon and small bowel. There is anastomotic suture line in the low pelvis. Moderate stool in the distal colon. No differential air-fluid levels or findings to suggest high degree bowel obstruction. No free intraperitoneal air. No definitive pathologic intraabdominal calcifications. Advanced degenerative change visualized thoracic and lumbar spine. Severe chronic deformity about the right hip with joint space nearly obliterated. IMPRESSION: 1. Negative for acute cardiopulmonary abnormality. 2. Scattered gas-filled loops of bowel are present relatively nonobstructive appearance. Mild distal colonic fecal retention. Dictated by: Dictated on workstation # [id number]
--- NOTE | 2021-02-05 07:27 | Diagnostic Imaging Report ---
PROCEDURE: CT urinary tract, rule out kidney stone. TECHNIQUE: Multiple contiguous axial images were obtained through the abdomen and pelvis without the use of intravenous contrast. Auto Exposure Controls were utilized during the CT exam to meet ALARA standards for radiation dose reduction. INDICATION: Right-sided upper quadrant and flank pain with constipation x3 days. CORRELATION STUDY: 12/21/2019 FINDINGS: LOWER THORAX: Clear. LIVER: 12 mm rounded low-density foci right hepatic lobe, stable. GALLBLADDER: Present and unremarkable. No bile duct dilatation. SPLEEN: Unremarkable. Small splenule inferiorly. PANCREAS: Unremarkable. ADRENAL GLANDS: Unremarkable. KIDNEYS: Normal configuration. Small adjacent calcification superior pole right kidney, unchanged and of no significance. No nephrolithiasis or obstruction. ABDOMINAL AORTA: Mild wall calcification, nonaneurysmal. GASTROINTESTINAL TRACT: Prior resection of the sigmoid colon with partial colectomy. Anastomosis appears to be intact. Prominent gas filled loops of large bowel upstream to the anastomosis is present. No high degree obstruction not definitively suggested, however postoperative stricturing is not completely excluded on this study. Prominent stool retention in the proximal colon. Appendix not definitively localized. No definitive inflammatory changes. No abdominal ascites. URINARY BLADDER: Unremarkable. REPRODUCTIVE: Uterus is present. The previously more complex multiseptated cystic mass left adnexa has been removed. OSSEOUS STRUCTURES: There has been adverse change in the appearance of the osseous structures. There are multiple scattered areas of sclerotic as well as lytic destructive changes of the osseous structures. More pronounced bony destructive change posteriorly at the T9 level. Soft tissue mass extending into the spinal canal is suspect. Additional more destructive lytic process centered at the right acetabulum. OTHER: None. IMPRESSION: 1. Postoperative changes sigmoid colon. Anastomosis appears intact. However there is some prominent gas and stool along with fluid proximal to the anastomosis. The possibility of a postoperative stricturing is not definitively excluded. If further assessment desired, enema would be recommended. There is disproportion to the proximal colon fecal loading may be accounting for the right-sided pain. 2. No definitive nephroureterolithiasis or obstructive uropathy. 3. Findings are consistent with a rather extensive osseous metastatic disease. Multifocal areas of abnormal sclerotic as well as of thais lytic destructive bony lesions are present. This includes the lower thoracic spinal canal where there is concern for potential spinal canal compromise. (This finding is not described at preliminary interpretation). Report was called to [place] nurse [facility] ER by mainor at 7:26am. Dictated by: Dictated on workstation # [id number]
[2021-02-05] MEDS ORDERED: DIATRIZOATE MEGLUM/SODIUM 37% 120 ML (GASTROGRAFIN) PO ONE (08:30)
--- NOTE | 2021-02-05 09:01 | Diagnostic Imaging Report ---
EXAMINATION: CT abdomen and pelvis without contrast. TECHNIQUE: Multiple contiguous axial images were obtained through the abdomen and pelvis without the use of intravenous contrast. All CT scans use one or more of the following dose optimizing techniques: automated exposure control, MA and/or KvP adjustment based on patient size and exam type or iterative reconstruction. HISTORY: Abdominal pain COMPARISON: Same day FINDINGS: Limited views of the lower thorax are unremarkable. 2 mm right liver lesion measures fluid attenuation consistent with a cyst. There is no biliary ductal dilation. Gallbladder is normal. Pancreas is normal. Spleen is normal. Adrenal glands are normal. The kidneys are normal. There is no hydronephrosis. Urinary bladder is normal. Both rectal and oral contrast were administered. The anastomosis in the sigmoid colon is widely patent with passage of contrast through the anastomosis and no evidence of stricturing. No evidence of bowel obstruction is seen. No bowel inflammation. No free fluid or air. No abdominal or pelvic lymphadenopathy. Aorta is normal in caliber without aneurysm. Again seen is extensive osseous metastatic disease. This includes T9 where there is replacement of the spinous process and likely epidural extension of tumor resulting in spinal canal stenosis. There is extensive involvement of the right acetabulum with a lytic lesion. IMPRESSION: 1. . Sigmoid colon anastomosis is widely patent without stricture. No bowel obstruction is present. 2. Extensive osseous metastatic disease with likely epidural extension of tumor at T9 resulting in spinal canal stenosis. 3. Extensive involvement of the right acetabulum with a lytic lesion placing the patient at risk for pathologic fracture of the right acetabulum. Dictated by: Dictated on workstation # [id number]
[2021-02-05] MEDS ORDERED: OXYC1TAB87 PO (10:05)
== END 2021-02-05 10:50 | disposition home or self-care (01) ==
LOC: EDUNIT# 03:54 → ER 03:59
DX: M89.9 Disorder of bone, unspecified (principal); S24.113A Complete lesion at T7-T10 level of thoracic spinal cord, initial encounter; I10 Essential (primary) hypertension; E78.00 Pure hypercholesterolemia, unspecified; K21.9 Gastro-esophageal reflux disease without esophagitis; Z87.891 Personal history of nicotine dependence; Z79.899 Other long term (current) drug therapy
CPT/HCPCS: 74022; 74176; 80053; 81000; 82150; 83690; 85025; 99284; G0480; 36415; 80320; 96361; 96374; 96375; 96376

== ENCOUNTER → 2021-02-14 | Outpatient (CLI) | payer MEDICARE ==
[~2021-02-14] MED LIST changes: +HOLD METFORMIN - RECEIVED CONTRAST 20 ML VIAL IV SCH; +IOHEXOL 350 MG/ML 100 ML (OMNIPAQUE 350) VIAL IV ONE; +NS 100 ML (IVPB) BAG IV ONE; +OXYC1TAB87 PO
[2021-02-14 12:16] LABS: ALBUMIN 4.2 GM/DL (3.2-4.5); POTASSIUM 4.1 MMOL/L (3.6-5.0)
[2021-02-14 12:17] LABS: CALCIUM 11.1 MG/DL (8.5-10.1)
[2021-02-14 12:20] LABS: BILIRUBIN,TOTAL 1.1 MG/DL (0.1-1.0)
[2021-02-14 12:22] LABS: CREATININE SERUM 0.84 MG/DL (0.60-1.30)
--- NOTE | 2021-02-14 15:01 | Diagnostic Imaging Report ---
PROCEDURE: CT chest with contrast only. TECHNIQUE: Multiple contiguous axial images were obtained through the chest after administration of intravenous contrast. Auto Exposure Controls were utilized during the CT exam to meet ALARA standards for radiation dose reduction. DATE: February 14, 2021. COMPARISON: Chest radiographs December 19, 2015. INDICATION: 65-year-old female, history of bone metastasis. Evaluation for primary malignancy. FINDINGS: There is a focal area of groundglass attenuation in the right upper lobe likely relating to focal atelectasis. There is no identified pulmonary nodule. There is no additional focal airspace consolidation. There is no pneumothorax. There is no pleural effusion. The central airways are patent. The heart is not enlarged. There is no pericardial effusion. There is no abnormally enlarged mediastinal, hilar, or axillary lymph node meeting CT size criteria for adenopathy. There is a 5 mm low-attenuation lesion in the liver on axial image 146, too small to characterize although most likely a benign cyst. The gallbladder is distended. There is no CT apparent gallstone or evidence of acute cholecystitis. There is no biliary ductal dilation. There is a sclerotic lesion of the right medial clavicle on axial image 17 measuring 1.6 cm in size. There are sclerotic lesions of right and left-sided ribs. There is a sclerotic lesion of the sternum on axial image 76 measuring 6 mm in size. There are additional subcentimeter sclerotic lesions of the sternum as well as of the left scapula. There are lucent and sclerotic lesions of the thoracic spine. There is aggressive bone destruction and extension of tumor beyond the posterior vertebral body margin and associated spinal stenosis at T8 as well as aggressive bone destruction at the level of T9. The T8 and T9 lesions include involvement of the posterior elements and/or pedicles as well as an aggressive bone lesion involving the right T10 pedicle and vertebral body extending beyond the expected posterior vertebral body margin. The T9 lesion also extends beyond the posterior vertebral body margin. There is spinal stenosis at both T9 and T10. Sclerotic lesion of the thoracic spine are present at T5, T4, T3, T2, L1, and L2. IMPRESSION: CT CHEST. 1. No evidence of a primary lung malignancy. 2. Numerous bone lesions including aggressive destructive lesions of the spine, T9, and T10 extending beyond the posterior vertebral body margin into the spinal canal with associated spinal stenosis. These bone lesions are most compatible with multifocal bone metastasis. Dictated by: Dictated on workstation # [id number]
== END ==
LOC: RAD 12:45
PROVIDERS: ATTEND Family Medicine
DX: M89.9 Disorder of bone, unspecified (principal); Z85.830 Personal history of malignant neoplasm of bone
CPT/HCPCS: 36415; 71260; 80053

== ENCOUNTER 2021-02-19 09:31 | Outpatient (CLI) | payer MEDICARE ==
[2021-02-19] VITALS (11 sets, daily range): BP systolic 98–128; BP diastolic 67–91
[~2021-02-19 09:31] MED LIST changes: -HOLD METFORMIN - RECEIVED CONTRAST 20 ML VIAL IV SCH; -IOHEXOL 350 MG/ML 100 ML (OMNIPAQUE 350) VIAL IV ONE; -NS 100 ML (IVPB) BAG IV ONE
[2021-02-19] MEDS ORDERED: NS IV 1000 ML 1,000 ML IV STA (09:49)
[2021-02-19] MEDS ORDERED: LIDOCAINE 1% INJ 20 ML 20 ML VIAL INJ ONE (10:00)
[2021-02-19] MEDS ORDERED: MIDAZOLAM 2 MG/2 ML (VERSED) VIAL IVP ONE (10:00)
[2021-02-19] MEDS ORDERED: fentaNYL INJ 100 MCG/2 ML AMP IVP ONE (10:00)
[2021-02-19 10:40] LABS: HEMATOCRIT 40 % (35-52); HEMOGLOBIN 12.9 g/dL (11.5-16.0); MEAN CORPUSCULAR HEMOGLOBIN 32 pg (25-34); MEAN CORPUSCULAR HGB CONC 33 g/dL (32-36); MEAN CORPUSCULAR VOLUME 97 fL (80-99); MEAN PLATELET VOLUME 9.1 fL (9.0-12.2); PLATELET COUNT 596 10^3/uL (130-400)
[2021-02-19 10:58] LABS: PROTHROMBIN TIME PATIENT 13.6 SEC (12.2-14.7)
[2021-02-19] MEDS ORDERED: HYDROcodone/APAP 5 MG/325 MG (LORTAB) TAB PO PRN (11:45)
--- NOTE | 2021-02-19 12:15 | Diagnostic Imaging Report ---
INDICATION: Right acetabulum lytic lesion. Patient presents for CT-guided biopsy. TECHNIQUE: All CT scans use one or more of the following dose optimizing techniques: Automated exposure control, MA and/or KvP adjustment based on patient size and exam type or iterative reconstruction. The patient was brought to the CT suite and placed on table in the left side down decubitus position. Axial imaging through the pelvis was performed to evaluate appropriate entry site. The procedure was performed utilizing conscious sedation with radiology nursing and constant patient monitoring. Patient was given a total of 100 mcg of fentanyl intravenously and 1 mg of Versed intravenously. Total procedure time was 8 minutes. Right hip was prepped and draped in the usual sterile fashion. A small amount of 1% lidocaine was utilized for local anesthesia. 18-gauge coaxial Temno needle was advanced and placed into the lytic lesion in the right acetabular roof. Four core biopsies were obtained. Needle was removed, and hemostasis was obtained using manual compression. Patient tolerated the procedure well and left the department in stable condition. IMPRESSION: Successful CT-guided biopsy of a lytic lesion of the right acetabulum, utilizing conscious sedation. Pathology results are currently pending. Dictated by: Dictated on workstation # [id number]
--- NOTE | 2021-02-19 12:32 | Pre-Op Note & Conscious Sedat ---
Pre-Operative Progress Note H&P Reviewed The H&P was reviewed, patient examined and no changes noted. Date H&P Reviewed: Feb 19, 2021 Time H&P Reviewed: 09:00 Pre-Op Diagnosis: Right hip lesion Conscious Sedation Pre-Proced Time 09:00 ASA Score 2 For ASA 3 and 4: Consider anesthesia and medical clearance. Also, for patients with a history of failed moderate sedation consider anesthesia. Airway Lungs Heart ASA score ASA 1: a normal healthy patient ASA 2: a patient with a mild systemic disease (mid diabetes, controlled hypertension, obesity ASA 3: a patient with a severe systemic disease that limits activity (angina, COPD, prior Myocardial infarction) ASA 4: a patient with an incapacitating disease that is a constant threat to life (CHF, renal failure) ASA 5: a moribund patient not expected to survive 24 hrs. (ruptured aneurysm) ASA 6: a declared brain- patient whose organs are being harvested. For emergent operations, add the letter E after the classification Mallampati Classification Grade 2 Sedation Plan Analgesia, Amnesia, Plan communicated to team members, Discussed options with rafael rojas/fam, Discussed risks with patient/fam The patient is an appropriate candidate to undergo the planned procedure, sedation, and anesthesia. The patient immediately re-assessed prior to indication. CELSO SHETH MD Feb 19, 2021 12:32
== END 2021-02-19 13:40 | disposition home or self-care (01) ==
LOC: SDC 09:31
PROVIDERS: ATTEND Family Medicine
DX: M25.851 Other specified joint disorders, right hip (principal)
CPT/HCPCS: 36415; 77012; 85027; 85610; 85730; 99156

== ENCOUNTER 2021-03-05 14:41 | Inpatient (IN) | payer MEDICARE ==
[~2021-03-05] VITALS: Ht 163 cm; Wt 69.0 kg
[2021-03-05] MEDS ORDERED: PATIENT MAY USE OWN MEDS, ALL PO SCH (15:15)
[2021-03-05] MEDS ORDERED: diphenhydrAMINE 25 MG TAB (BENADRYL) PO PRN (15:15)
[2021-03-05] MEDS ORDERED: ACETAMINOPHEN 325 MG TABLET PO PRN (15:15)
[2021-03-05] MEDS ORDERED: SENNA W/DOCUSATE (SENOKOT S) TABLET PO PRN (15:15)
[2021-03-05] MEDS ORDERED: MILK OF MAGNESIA 400 MG/5 ML 30 ML UDC PO PRN (15:15)
--- NOTE | 2021-03-05 15:35 | Oncology Consultation ---
Visit Information Visit Information Date of Admission Attending Physician Desirae Bocanegra MD Admitting Physician Zan Martin MD Chief Complaint Breast cancer intractable pain Interval History Ms. Figueroa is a 65 year old white female came to the cancer center today as initial consultation for the newly diagnosed breast cancer with extensive bone mets. While she was at the clinic she was in severe pain required morphine 4mg IV x 2 in order to get the under reasonable control for a short time. She has been taking Oxycodon 10mg q 6hrs PRN at home as well as fentanyl patch. She rated her pain 10/10 while at the cancer center. Reviewed her CT scan which showed T9 spinal lesion, risk of cord compression. Right femur lesion, risk of pathological fracture. Pathology of right acetabulum bone biopsy 02-19-2021 showed metastatic adenocarcinoma consistent with breast primary. ER 95%+ and PR45%+, her-2neu negative. She had negative mammogram 06/2020. I consulted the patient on: 03/05/21 15:24 Time Seen by Provider: 15:00 Review of Systems Constitutional: see HPI Health Status Allergies Coded Allergies: No Known Drug Allergies (Unverified , 04/13/20) Home Medications Atorvastatin Calcium (Atorvastatin Calcium) 40 Mg Tablet, 40 MG PO DAILY, (Reported) Calcium Carbonate (Calcium) 500 Mg Tablet, 500 MG PO DAILY, (Reported) Cholecalciferol (Vitamin D3) (Vitamin D3) 25 Mcg Capsule, 25 MCG PO DAILY, (Reported) Docusate Sodium (Stool Softener) 100 Mg Capsule, 100 MG PO DAILY, (Reported) Fentanyl (Fentanyl Patch 25 MCG) 1 Each Patch.td72, 25 MCG TD Q72H, (Reported) Glucosamine/D3/Boswellia Aggie (Osteo Bi-Flex Caplet) 1 Each Tablet, 1 EACH PO DAILY, (Reported) Lisinopril (Lisinopril) 20 Mg Tablet, 20 MG PO DAILY, (Reported) Multivitamin (Multivitamin) 1 Each Tablet, 1 EACH PO DAILY, (Reported) Oxycodone HCl/Acetaminophen (Oxycodone-Acetaminophen 10-325) 1 Each Tablet, 1 EA CH PO Q4H PRN for PAIN-MODERATE, (Reported) Pantoprazole Sodium (Pantoprazole Sodium) 40 Mg Tablet.dr, 40 MG PO DAILY, (Reported) Vitamin E (Dl,Tocopheryl Acet) (Vitamin E) 450 Mg Capsule, 450 MG PO DAILY, (Reported) VGA-Yejtfu-Xzvryg Hx Patient Social History Type Used: Cigarettes 2nd Hand Smoke Exposure: No Recent Hopitalizations: Yes (November) Immunizations Up To Date Tetanus Booster (TDap): More than 5yrs Family Medical History Significant Family History: No Pertinent Family Hx Family History: Hypertension 19 MOTHER Physical Exam Vital Signs Vital Signs - First Documented 03/05/21 03/05/21 03/05/21 15:43 19:13 20:01 Temp 36.0 Pulse 100 Resp 18 B/P (MAP) 121/69 (86) Pulse Ox 96 O2 Delivery Room Air Capillary Refill : Height, Weight, BMI Height: 5'3.00" Weight: 157lbs. 0.0oz. 71.025452rd; 28.00 BMI Method:Stated General Appearance: Severe Distress HEENT: PERRL/EOMI Neck: Supple Respiratory: Lungs Clear, No Accessory Muscle Use, No Respiratory Distress Cardiovascular: Regular Rate, Rhythm, Tachycardia Gastrointestinal: Soft Back: Muscle Spasm, Vertebral Tenderness Extremity: Non Tender, No Calf Tenderness, No Pedal Edema Neurologic/Psychiatric: Alert, Oriented x3, motor overhauler II-XII Norm as Tested Impression & Plan Impression & Plan A/P: 1. 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 T9 spine lesion risk of cord compression. Right acetabulum lesion risk of pathological fracture. 2. Intractable pain from the bone mets. Has been Oxycodone and Fentanyl patch at home and still rate pain 10/10. She needed 8mg morphine IV at the clinic in order to calm down her pain. Plan: 1. Radiation consultation to radiate T9 and right hip lesion. Plan to simulation tomorrow and start radiation treatment on . 2. Decadron 4mg q8hr PO. Pt had a dose 4mg IV at the cancer center. 3. Dilaudid SODA FOUNTAIN CLERK per protocol, 0.4mg loading, 0.3mg/hr CI, 0.2mg bolus q 15mins. no cap. 4. Pepcid 20mg bid PO while on steroid 5. Once we know how much dilaudid she needs a day to get her pain under control, we will convert SODA FOUNTAIN CLERK to oral Oxycontin and Oxycodone PRN. 6. I anticipate the patient will stay to Thursday. DESIRAE BOCAENGRA MD Mar 05, 2021 15:35
[2021-03-05] MEDS: HYDROmorphone PF INJECTION 40 MG in NS (IVPB) 96 ML IV SCH (17:32)
[2021-03-05 20:01] VITALS: BP 121/69
[2021-03-05] MEDS: FAMOTIDINE 20 MG (PEPCID) TABLET PO SCH (20:42)
[2021-03-05 23:34] VITALS: BP 113/75
[2021-03-05] MEDS: HYDROmorphone 2 MG/ML VIAL (DILAUDID) IV PRN (23:53)
[2021-03-06 03:31] VITALS: BP 118/62
[2021-03-06 08:00] VITALS: BP 109/61
[2021-03-06] MEDS: FAMOTIDINE 20 MG (PEPCID) TABLET PO SCH ×2 (08:11→19:46)
[2021-03-06] MEDS ORDERED: LISI20TA26 PO (11:31)
[2021-03-06] MEDS ORDERED: OXYC-556 PO (11:32)
[2021-03-06] MEDS ORDERED: FENT1PAT8 TD (11:38)
[2021-03-06 12:00] VITALS: BP 152/92
--- NOTE | 2021-03-06 15:50 | Progress Note ---
Progress Note Assessment/Plan Date Seen by Provider: Mar 06, 2021 Time Seen by Provider: 15:45 Events since last exam Pt is feeling much better and a lot comfortable in bed today. She got sim today for radiation treatment tomorrow. She noticed dizziness when she turns her head. 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 Assessment/Plan A/P: 1. 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 T9 spine lesion risk of cord compression. Right acetabulum lesion risk of pathological fracture. 2. Intractable pain from the bone mets. Has been Oxycodone and Fentanyl patch at home and still rate pain 10/10. She needed 8mg morphine IV at the clinic in order to calm down her pain. 3. Dizziness when she turns her head. Plan: 1. Radiation consultation to radiate T9 and right hip lesion. Plan to simulation tomorrow and start radiation treatment on . 2. Decadron 4mg q8hr PO. Pt had a dose 4mg IV at the cancer center. 3. Dilaudid FINANCIAL ANALYSIS ADVISOR per protocol, 0.4mg loading, 0.3mg/hr CI, 0.2mg bolus q 15mins. no cap. 4. Pepcid 20mg bid PO while on steroid 5. Once we know how much dilaudid she needs a day to get her pain under control, we will convert FINANCIAL ANALYSIS ADVISOR to oral Oxycontin and Oxycodone PRN. 6. I anticipate the patient will stay to Thursday, then possible swing bed to finish her radiation treatment. 7. MRI of the head with contrast to evaluate possible brain mets. 8. Start oral tamoxifen 20mg daily and will start Faslodex soon. 9. Constipation prophylaxis. Vitals Last set of Vitals Signs Vital Signs Date Time Temp Pulse Resp B/P (MAP) Pulse Ox O2 Delivery O2 Flow Rate FiO2 03/06/21 12:00 36.6 96 18 152/92 (112) 97 Room Air I&O I&O Intake and Output 03/06/21 00:00 Intake Total 800 ml Balance 800 ml Intake Oral 800 ml # Voids 1 Daily Weight Change Yes, Greater than 33 lbs JEZ LAWLER MD Mar 06, 2021 15:50
[2021-03-06 16:02] VITALS: BP 136/85
[2021-03-06 18:46] LABS: BASOPHILS % (AUTO) 0 % (0-10); EOSINOPHILS % (AUTO) 0 % (0-10); HEMATOCRIT 41 % (35-52); HEMOGLOBIN 13.2 g/dL (11.5-16.0); LYMPHOCYTES # (AUTO) 1.1 10^3/uL (1.0-4.0); LYMPHOCYTES % (AUTO) 9 % (12-44); MEAN CORPUSCULAR HEMOGLOBIN 31 pg (25-34); MEAN CORPUSCULAR HGB CONC 32 g/dL (32-36); MEAN CORPUSCULAR VOLUME 96 fL (80-99); MEAN PLATELET VOLUME 10.4 fL (9.0-12.2); MONOCYTES # (AUTO) 0.6 10^3/uL (0.0-1.0); MONOCYTES % (AUTO) 5 % (0-12); NEUTROPHILS # (AUTO) 10.2 10^3/uL (1.8-7.8); NEUTROPHILS % (AUTO) 85 % (42-75); PLATELET COUNT 404 10^3/uL (130-400)
[2021-03-06 19:04] LABS: ALBUMIN 3.7 GM/DL (3.2-4.5); POTASSIUM 3.8 MMOL/L (3.6-5.0)
[2021-03-06 19:05] LABS: CALCIUM 10.1 MG/DL (8.5-10.1)
[2021-03-06 19:08] LABS: BILIRUBIN,TOTAL 0.4 MG/DL (0.1-1.0)
[2021-03-06 19:10] LABS: CREATININE SERUM 0.64 MG/DL (0.60-1.30)
[2021-03-06 19:53] VITALS: BP 142/82
[2021-03-06] MEDS: DOCUSATE SODIUM 100 MG (COLACE) CAP PO SCH (22:07)
[2021-03-06] MEDS: ONDANSETRON 4 MG/2 ML (SDV) Z0FRAN IV PRN (22:19)
[2021-03-06 23:23] VITALS: BP 128/76
[2021-03-06] MEDS: HYDROmorphone 2 MG/ML VIAL (DILAUDID) IV PRN (23:55)
[2021-03-06] MEDS: BISACODYL 10 MG SUPP (DULCOLAX) PR PRN (23:56)
[2021-03-07] MEDS: ALPRAZolam 0.25 MG (XANAX) TAB PO PRN ×2 (01:01→21:00)
[2021-03-07] MEDS: NS IV 1000 ML 1,000 ML IV SCH (04:18)
[2021-03-07 08:00] VITALS: BP 118/77
[2021-03-07] MEDS: FAMOTIDINE 20 MG (PEPCID) TABLET PO SCH (08:08)
[2021-03-07] MEDS: ASPIRIN E.C. 81 MG (ECOTRIN) TAB PO SCH (08:08)
[2021-03-07] MEDS: TAMOXIFEN 10 MG (NOLVADEX) TAB PO SCH (08:08)
[2021-03-07] MEDS: DOCUSATE SODIUM 100 MG (COLACE) CAP PO SCH ×2 (08:08→21:00)
[2021-03-07] MEDS: polyethylene glycoL POWDER 17 GM (MIRALAX) PACK PO SCH (08:08)
[2021-03-07] MEDS: HYDROmorphone 2 MG/ML VIAL (DILAUDID) IV PRN ×2 (12:00→20:56)
[2021-03-07] MEDS ORDERED: GADOBUTROL 7.5 MMOL/7.5 ML (GADAVIST) VIAL IV ONE (12:30)
[2021-03-07] MEDS: ONDANSETRON 4 MG/2 ML (SDV) Z0FRAN IV PRN ×2 (13:00→15:53)
--- NOTE | 2021-03-07 13:17 | Diagnostic Imaging Report ---
Clinical indications: Patient has history of breast cancer, bone metastases and possible brain metastases. Rule out brain metastasis. Exam: MRI of the brain performed without and with 6 cc of Gadavist IV contrast. Sequences include axial DWI, ADC map, coronal gradient echo, axial T2, axial FLAIR, axial T1, axial T1 post IV contrast, coronal T1 fat-sat post IV contrast, and sagittal T1 post IV contrast. Comparison: None. Findings: There is motion artifact which limits evaluation of portions of the brain. There is no abnormal IV contrast enhancement. There is no evidence of acute cerebral infarct, intracranial hemorrhage, or gross mass effect. The brain parenchymal volume appears appropriate for patient's age. There are a few focal patchy areas of high T2 signal white matter changes involving both cerebral hemispheres, likely representing chronic small vessel ischemic disease. There is normal lemus-white matter distinction. There is no significant midline shift or herniation. The [place] vascular structures show no gross abnormality as visualized. The pituitary gland, sella, and suprasellar regions are unremarkable as visualized. There is no evidence of hydrocephalus. The basal cisterns are unremarkable. The skull, extracranial soft tissue, and orbits are unremarkable. The paranasal sinuses are unremarkable. There is a small amount of fluid involving both mastoid air cells. IMPRESSION: 1: There is no evidence of acute intracranial process. There is no abnormal IV contrast enhancement and no evidence of metastatic disease. 2: There are age-related brain parenchymal changes. 3: There is a small amount of fluid involving both mastoid air cells. Dictated by: Dictated on workstation # [id number]
[2021-03-07 16:17] VITALS: BP 134/72
[2021-03-08] VITALS: BP 95/53
[2021-03-08] MEDS: NS IV 1000 ML 1,000 ML IV SCH (06:31)
--- NOTE | 2021-03-08 07:22 | Progress Note ---
Subjective Date Seen by a Provider: Mar 08, 2021 Time Seen by a Provider: 07:00 Subjective/Events-last exam Janene reports her pain is under better control now. She has not been e xperiencing as much dizziness. She does not report any chest pain or shortness of breath. Objective Exam Vital Signs Date Time Temp Pulse Resp B/P (MAP) Pulse Ox O2 Delivery O2 Flow Rate FiO2 03/08/21 00:00 36.1 64 20 95/53 (67) 96 Room Air 03/07/21 23:51 20 03/07/21 21:26 36.6 03/07/21 20:00 Room Air 03/07/21 16:17 63 22 134/72 (92) 97 Room Air 03/07/21 09:27 18 03/07/21 08:00 36.6 74 20 118/77 (91) 94 Room Air 03/07/21 08:00 Room Air I & O 03/08/21 07:00 Intake Total 950 ml Output Total 420 ml Balance 530 ml Capillary Refill : General Appearance: No Apparent Distress Assessment/Plan Assessment/Plan Assess & Plan/Chief Complaint 1. Stage IV moderately differentiated adenocarcinoma of the breast with extensive bone metastasis. T9 spine lesion as well as right acetabular lesion -We will see about switching her over to swing bed today -Continue with radiation therapy and chemotherapy 2. Intractable pain from bone metastasis -She does have a UPLANDS DIVISION DIRECTOR pump 3. Dizziness overall has improved GLADIS GRIGGS MD Mar 08, 2021 07:22
[2021-03-08 08:00] VITALS: BP 123/74
[2021-03-08] MEDS: FAMOTIDINE 20 MG (PEPCID) TABLET PO SCH (09:05)
[2021-03-08] MEDS: DOCUSATE SODIUM 100 MG (COLACE) CAP PO SCH ×2 (09:05→19:38)
[2021-03-08] MEDS: polyethylene glycoL POWDER 17 GM (MIRALAX) PACK PO SCH (09:05)
[2021-03-08] MEDS: ASPIRIN E.C. 81 MG (ECOTRIN) TAB PO SCH (09:05)
[2021-03-08] MEDS: TAMOXIFEN 10 MG (NOLVADEX) TAB PO SCH (09:06)
[2021-03-08] MEDS: HYDROmorphone PF INJECTION 40 MG in NS (IVPB) 96 ML IV SCH (14:12)
[2021-03-08] MEDS: HYDROmorphone 2 MG/ML VIAL (DILAUDID) IV PRN ×2 (15:18→21:56)
[2021-03-08 16:34] VITALS: BP 109/67
--- NOTE | 2021-03-08 17:44 | Progress Note ---
Standard Progress Note Progress Notes/Assess & Plan Date Seen by a Provider: Mar 08, 2021 Time Seen by a Provider: 17:35 Progress/Assessment & Plan 65-year-old female admitted to the hospital with intractable mid back pain and right hip pain with inability to walk. CT scan showed numerous bony lesions including a T9 vertebral lesion causing possible cord compression and a right hip lesion with impending fracture. Patient is on Dilaudid SOLUTIONS OPERATOR at 0.3 mg/h continuous infusion with 0.2 mg bolus as needed. She has received 17 boluses in the last approximately 36 hours. She is comfortable at rest but with movement she has significant pain. She denied any incontinence of bowel or bladder. She is able to flex and extend her feet without pain. Right hip flexion is limited because of pain. She was started on palliative radiation therapy to the T9 area as well as the right hip and has completed 2 fractions. Her appetite is fair and she complained of mild heartburn-like symptoms. She is receiving Pepcid on schedule. Biopsy was consistent with an adenocarcinoma favoring breast primary which was ER positive. Continue palliative radiation therapy. Once the pain is under better control, gradually increase activity with physical therapy as well as switch parenteral pain medications to oral. She will need systemic treatment for widespread metastatic disease. We will continue to follow the patient during Dr. Bocanegra's absence. JULIÁN GE Mar 08, 2021 17:44
[2021-03-08] MEDS: ALPRAZolam 0.25 MG (XANAX) TAB PO PRN (21:56)
[2021-03-08 23:30] VITALS: BP 100/65
[2021-03-09] MEDS: NS IV 1000 ML 1,000 ML IV SCH ×2 (05:24→15:15)
[2021-03-09] MEDS: ALPRAZolam 0.25 MG (XANAX) TAB PO PRN ×2 (06:51→20:05)
[2021-03-09] MEDS: TAMOXIFEN 10 MG (NOLVADEX) TAB PO SCH (08:01)
[2021-03-09] MEDS: polyethylene glycoL POWDER 17 GM (MIRALAX) PACK PO SCH (08:01)
[2021-03-09] MEDS: ASPIRIN E.C. 81 MG (ECOTRIN) TAB PO SCH (08:01)
[2021-03-09] MEDS: DOCUSATE SODIUM 100 MG (COLACE) CAP PO SCH ×2 (08:01→19:43)
[2021-03-09] MEDS: FAMOTIDINE 20 MG (PEPCID) TABLET PO SCH (08:01)
--- NOTE | 2021-03-09 08:13 | Progress Note ---
Subjective Date Seen by a Provider: Mar 09, 2021 Time Seen by a Provider: 07:05 Subjective/Events-last exam Patient is feeling much better this morning. She is lying on her left side. She was able to urinate on the bedpan better than getting up to bedside commode. Objective Exam Vital Signs Date Time Temp Pulse Resp B/P (MAP) Pulse Ox O2 Delivery O2 Flow Rate FiO2 03/09/21 07:10 36.5 61 18 95 Room Air 03/09/21 06:37 14 03/08/21 23:30 36.4 68 18 100/65 (77) 94 Room Air 03/08/21 19:35 Room Air 03/08/21 16:55 14 03/08/21 16:34 36.8 63 18 109/67 (81) 97 Room Air I & O 03/09/21 07:00 Intake Total 1070 ml Output Total 500 ml Balance 570 ml Capillary Refill : General Appearance: No Apparent Distress Respiratory: Lungs Clear Cardiovascular: Regular Rate, Rhythm Assessment/Plan Assessment/Plan Assess & Plan/Chief Complaint 1. Stage IV moderately differentiated adenocarcinoma of the breast with extensive bone metastasis. T9 spine lesion as well as right acetabular lesion -We will see about switching her over to swing bed today -Continue with radiation therapy and chemotherapy 03/09 -plan his radiation therapy to hip and her back. -Physical therapy and occupational therapy most likely on Thursday 2. Intractable pain from bone metastasis -She does have a CASH ACCOUNTING CLERK pump 03/09 -her pain currently is under control. She has Dilantin receiving 0.3 mg per hour and 0.2 as a bolus if needed 3. Dizziness overall has improved GLADIS GRIGGS MD Mar 09, 2021 08:13
--- NOTE | 2021-03-09 13:08 | Progress Note ---
Standard Progress Note Progress Notes/Assess & Plan Date Seen by a Provider: Mar 09, 2021 Time Seen by a Provider: 13:05 Progress/Assessment & Plan 65-year-old female admitted to the hospital with intractable mid back pain and right hip pain with inability to walk. CT scan showed numerous bony lesions including a T9 vertebral lesion causing possible cord compression and a right hip lesion with impending fracture. Patient is on Dilaudid PATIENT ACCOUNTING REPRESENTATIVE at 0.3 mg/h continuous infusion with 0.2 mg bolus as needed. She is not requiring boluses except on rare occasion. She is comfortable at rest but with movement she has significant pain. She denied any incontinence of bowel or bladder. She is able to flex and extend her ankles without pain. Right hip flexion is limited because of pain. She was started on palliative radiation therapy to the T9 area as well as the right hip and has completed 2 fractions. Her appetite is fair and she denied any bowel movements today. Biopsy was consistent with an adenocarcinoma favoring breast primary which was ER positive. Continue palliative radiation therapy. Only new complaint was jitteriness probably related to dexamethasone. We will continue to monitor and decrease dexamethasone next 1 to 2 days. She will need systemic treatment for widespread metastatic disease and was started on tamoxifen. I will repeat the lab work and obtain a baseline CA 15-3 level. We will continue to follow the patient during Dr. Bocanegra's absence. JULIÁN GE Mar 09, 2021 13:08
[2021-03-09] MEDS: HYDROmorphone 2 MG/ML VIAL (DILAUDID) IV PRN ×2 (14:58→20:06)
[2021-03-09] MEDS: BISACODYL 10 MG SUPP (DULCOLAX) PR PRN (15:06)
[2021-03-09 16:00] VITALS: BP 121/58
[2021-03-09 23:09] VITALS: BP 114/68
[2021-03-10] MEDS: HYDROmorphone 2 MG/ML VIAL (DILAUDID) IV PRN ×2 (03:10→17:29)
[2021-03-10 04:48] VITALS: BP 103/57
[2021-03-10] MEDS: ALPRAZolam 0.25 MG (XANAX) TAB PO PRN (04:48)
[2021-03-10 06:15] LABS: BASOPHILS % (AUTO) 0 % (0-10); EOSINOPHILS % (AUTO) 0 % (0-10); HEMATOCRIT 37 % (35-52); HEMOGLOBIN 12.1 g/dL (11.5-16.0); LYMPHOCYTES # (AUTO) 0.9 10^3/uL (1.0-4.0); LYMPHOCYTES % (AUTO) 7 % (12-44); MEAN CORPUSCULAR HEMOGLOBIN 31 pg (25-34); MEAN CORPUSCULAR HGB CONC 33 g/dL (32-36); MEAN CORPUSCULAR VOLUME 96 fL (80-99); MEAN PLATELET VOLUME 10.3 fL (9.0-12.2); MONOCYTES # (AUTO) 0.8 10^3/uL (0.0-1.0); MONOCYTES % (AUTO) 6 % (0-12); NEUTROPHILS # (AUTO) 11.2 10^3/uL (1.8-7.8); NEUTROPHILS % (AUTO) 86 % (42-75); PLATELET COUNT 384 10^3/uL (130-400); WHITE BLOOD COUNT 13.1 10^3/uL (4.3-11.0)
[2021-03-10 06:27] LABS: ALBUMIN 3.2 GM/DL (3.2-4.5); POTASSIUM 4.4 MMOL/L (3.6-5.0)
[2021-03-10 06:28] LABS: CALCIUM 9.3 MG/DL (8.5-10.1)
[2021-03-10 06:29] LABS: TOTAL PROTEIN 5.5 GM/DL (6.4-8.2)
[2021-03-10 06:31] LABS: BILIRUBIN,TOTAL 0.5 MG/DL (0.1-1.0)
[2021-03-10 06:33] LABS: CREATININE SERUM 0.61 MG/DL (0.60-1.30)
[2021-03-10 06:52] LABS: LYMPHOCYTES % (MANUAL) 6 %; MONOCYTES % (MANUAL) 2 %; NEUTROPHILS % (MANUAL) 92 %; RBC MORPH NORMAL
[2021-03-10 07:15] VITALS: BP 104/55
--- NOTE | 2021-03-10 07:42 | Progress Note ---
Subjective Date Seen by a Provider: Mar 10, 2021 Time Seen by a Provider: 06:45 Subjective/Events-last exam patient has not been drinking and eating very well. She reports to me she doesn't drink because she's not wanting to move to have to urinate. She is willing to have Johnson catheter short-term. Also would be interested in nutritional supplement Objective Exam Vital Signs Date Time Temp Pulse Resp B/P (MAP) Pulse Ox O2 Delivery O2 Flow Rate FiO2 03/10/21 07:15 36.2 70 18 104/55 (71) 97 Room Air 03/10/21 06:23 14 03/10/21 04:48 36.5 59 20 103/57 (72) 94 Room Air 03/09/21 23:09 36.0 67 20 114/68 (83) 97 Room Air 03/09/21 20:00 Room Air 03/09/21 18:58 18 03/09/21 16:00 36.8 70 18 121/58 (79) 97 Room Air 03/09/21 09:54 Room Air I & O 03/10/21 07:00 Intake Total 860 ml Output Total 750 ml Balance 110 ml Capillary Refill : General Appearance: Moderate Distress (with movements) Neck: Supple Respiratory: Lungs Clear Cardiovascular: Regular Rate, Rhythm Results Lab Laboratory Tests 03/10/21 06:03: White Blood Count 13.1H, Red Blood Count 3.85, Hemoglobin 12.1, Hematocrit 37, Mean Corpuscular Volume 96, Mean Corpuscular Hemoglobin 31, Mean Corpuscular Hemoglobin Concent 33, Red Cell Distribution Width 13.4, Platelet Count 384, Mean Platelet Volume 10.3, Immature Granulocyte % (Auto) 1, Neutrophils (%) (Auto) 86H, Lymphocytes (%) (Auto) 7L, Monocytes (%) (Auto) 6, Eosinophils (%) (Auto) 0, Basophils (%) (Auto) 0, Neutrophils # (Auto) 11.2H, Lymphocytes # (Auto) 0.9L, Monocytes # (Auto) 0.8, Eosinophils # (Auto) 0.0, Basophils # (Auto) 0.0, Immature Granulocyte # (Auto) 0.1, Neutrophils % (Manual) 92, Lymphocytes % (Manual) 6, Monocytes % (Manual) 2, Blood Morphology Comment NORMAL, Sodium Level 139, Potassium Level 4.4, Chloride Level 102, Carbon Dioxide Level 25, Anion Gap 12, Blood Urea Nitrogen 16, Creatinine 0.61, Estimat Glomerular Filtration Rate 98, BUN/Creatinine Ratio 26, Glucose Level 105, Calcium Level 9.3, Corrected Calcium 9.9, Total Bilirubin 0.5, Aspartate Amino Transf (AST/SGOT) 28, Alanine Aminotransferase (ALT/SGPT) 52, Alkaline Phosphatase 119, Total Protein 5.5L, Albumin 3.2 Assessment/Plan Assessment/Plan Assess & Plan/Chief Complaint 1. Stage IV moderately differentiated adenocarcinoma of the breast with extensive bone metastasis. T9 spine lesion as well as right acetabular lesion -We will see about switching her over to swing bed today -Continue with radiation therapy and chemotherapy 03/09 -plan his radiation therapy to hip and her back. -Physical therapy and occupational therapy most likely on Saturday 03/10 -physical therapy and occupational therapy in the morning. With her pain level this may not be very productive -Radiation therapy most likely on Thursday 2. Intractable pain from bone metastasis -She does have a LIQUEFACTION SUPERVISOR pump 03/09 -her pain currently is under control. She has Dilantin receiving 0.3 mg per hour and 0.2 as a bolus if needed 03/10 -since she is in quite a bit of pain with movement, Johnson catheter 3. Dizziness overall has improved GLADIS GRIGGS MD Mar 10, 2021 07:42
[2021-03-10] MEDS: DOCUSATE SODIUM 100 MG (COLACE) CAP PO SCH ×2 (10:45→20:18)
[2021-03-10] MEDS: ASPIRIN E.C. 81 MG (ECOTRIN) TAB PO SCH (10:45)
[2021-03-10] MEDS: FAMOTIDINE 20 MG (PEPCID) TABLET PO SCH (10:45)
[2021-03-10] MEDS: polyethylene glycoL POWDER 17 GM (MIRALAX) PACK PO SCH (10:46)
[2021-03-10] MEDS: TAMOXIFEN 10 MG (NOLVADEX) TAB PO SCH (10:48)
[2021-03-10 11:37] VITALS: BP 108/55
--- NOTE | 2021-03-10 12:01 | Progress Note ---
Standard Progress Note Progress Notes/Assess & Plan Date Seen by a Provider: Mar 10, 2021 Time Seen by a Provider: 11:59 Progress/Assessment & Plan 65-year-old female admitted to the hospital with intractable mid back pain and right hip pain with inability to walk. CT scan showed numerous bony lesions including a T9 vertebral lesion causing possible cord compression and a right hip lesion with impending fracture. Patient is on Dilaudid SHEET SEWER at 0.3 mg/h continuous infusion with 0.2 mg bolus as needed. She is not requiring boluses except on rare occasion. She is comfortable at rest but with movement she has significant pain. She denied any incontinence of bowel or bladder. She is able to flex and extend her ankles without pain. Right hip flexion is limited because of pain. She was started on palliative radiation therapy to the T9 area as well as the right hip and has completed 2 fractions. Biopsy was consistent with an adenocarcinoma favoring breast primary which was ER positive. Continue palliative radiation therapy. Patient had a Johnson catheter placed to avoid having to use even a bedpan because of pain. She will need systemic treatment for widespread metastatic disease and was started on tamoxifen. We will continue to follow the patient during Dr. Bocanegra's absence. JULIÁN GE Mar 10, 2021 12:01
[2021-03-10 15:31] VITALS: BP 102/63
[2021-03-10 19:45] VITALS: BP 111/55
[2021-03-10] MEDS: NS IV 1000 ML 1,000 ML IV SCH (20:22)
[2021-03-10 23:35] VITALS: BP 107/57
[2021-03-10] MEDS: ONDANSETRON 4 MG/2 ML (SDV) Z0FRAN IV PRN (23:43)
[2021-03-11 03:16] VITALS: BP 121/62
[2021-03-11] MEDS: HYDROmorphone 2 MG/ML VIAL (DILAUDID) IV PRN ×3 (03:36→10:33)
[2021-03-11] MEDS: ALPRAZolam 0.25 MG (XANAX) TAB PO PRN (03:39)
[2021-03-11] MEDS: HYDROmorphone PF INJECTION 40 MG in NS (IVPB) 96 ML IV SCH (05:31)
--- NOTE | 2021-03-11 07:55 | Progress Note ---
Subjective Date Seen by a Provider: Mar 11, 2021 Time Seen by a Provider: 06:45 Subjective/Events-last exam Patient was resting comfortably this morning upon entering the room. She reports the Johnson catheter has helped her not having to get up and experiencing severe pain. She has been utilizing the Dilaudid MANAGER BUSINESS pump. She does complain of some indigestion. Objective Exam Vital Signs Date Time Temp Pulse Resp B/P (MAP) Pulse Ox O2 Delivery O2 Flow Rate FiO2 03/11/21 07:11 100 Room Air 03/11/21 06:02 16 03/11/21 03:16 36.5 69 18 121/62 (81) 99 Room Air 03/10/21 23:35 36.5 76 18 107/57 (74) 99 Room Air 03/10/21 22:36 96 Room Air 03/10/21 20:20 Room Air 03/10/21 19:45 37.3 85 18 111/55 (73) 96 Room Air 03/10/21 19:06 97 Room Air 03/10/21 18:28 16 03/10/21 15:31 37.0 67 16 102/63 (76) 95 Room Air 03/10/21 11:37 35.8 70 18 108/55 (72) 97 Room Air 03/10/21 10:43 97 Room Air 03/10/21 08:59 Room Air I & O 03/11/21 07:00 Intake Total 2540 ml Output Total 1525 ml Balance 1015 ml Capillary Refill : General Appearance: No Apparent Distress (at this time) Neck: Supple Respiratory: Lungs Clear Cardiovascular: Regular Rate, Rhythm Gastrointestinal: soft Assessment/Plan Assessment/Plan Assess & Plan/Chief Complaint 1. Stage IV moderately differentiated adenocarcinoma of the breast with extensive bone metastasis. T9 spine lesion as well as right acetabular lesion -We will see about switching her over to swing bed today -Continue with radiation therapy and chemotherapy 03/09 -plan his radiation therapy to hip and her back. -Physical therapy and occupational therapy most likely on Saturday 03/10 -physical therapy and occupational therapy in the morning. With her pain level this may not be very productive -Radiation therapy most likely on Sunday 03/11 -radiation therapy today 2. Intractable pain from bone metastasis -She does have a MANAGER BUSINESS pump 03/09 -her pain currently is under control. She has Dilantin receiving 0.3 mg per hour and 0.2 as a bolus if needed 03/10 -since she is in quite a bit of pain with movement, Johnson catheter 3. Dizziness overall has improved 4. Indigestion -She does have famotidine written. Will add on generic Protonix. GLADIS GRIGGS MD Mar 11, 2021 07:55
[2021-03-11 08:00] VITALS: BP 117/64
[2021-03-11] MEDS ORDERED: PANTOPRAZOLE 40 MG (PROTONIX) TAB PO SCH (09:00)
[2021-03-11] MEDS: polyethylene glycoL POWDER 17 GM (MIRALAX) PACK PO SCH (09:25)
[2021-03-11] MEDS: ASPIRIN E.C. 81 MG (ECOTRIN) TAB PO SCH (09:25)
[2021-03-11] MEDS: DOCUSATE SODIUM 100 MG (COLACE) CAP PO SCH (09:25)
[2021-03-11] MEDS: FAMOTIDINE 20 MG (PEPCID) TABLET PO SCH (09:25)
[2021-03-11] MEDS: TAMOXIFEN 10 MG (NOLVADEX) TAB PO SCH (09:32)
--- NOTE | 2021-03-11 10:21 | Progress Note ---
Progress Note Assessment/Plan Date Seen by Provider: Mar 11, 2021 Time Seen by Provider: 12:45 Events since last exam No new issues. Pain is under reasonable control with dilaudid RIVETER as long as she is not moving. Johnson catheter helped. Dr. Martin ordered a mid line today. Will transfer to swing bed today Assessment/Plan Pt is feeling much better and a lot comfortable in bed today. She got sim today for radiation treatment tomorrow. She noticed dizziness when she turns her head. 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 Assessment/Plan A/P: 1. 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 T9 spine lesion risk of cord compression. Right acetabulum lesion risk of pathological fracture. 2. Intractable pain from the bone mets. Has been Oxycodone and Fentanyl patch at home and still rate pain 10/10. She needed 8mg morphine IV at the clinic in order to calm down her pain. 3. Dizziness when she turns her head. Plan: 1. Radiation to radiate T9 and right hip lesion. Plan 35 radiation treatments. She is at 2/35. Will start to taper steroid in 3-4 days. 2. Continue Dilaudid RIVETER 0.3mg/hr CI, 0.2mg bolus q 15mins. no cap. 4. Pepcid 20mg bid PO while on steroid. Protonix added by PCP Dr Martin yesterday due to stomach upset 5. Started oral tamoxifen 20mg daily and will start Faslodex soon. 6. Constipation prophylaxis. 7. Physical and occupational evaluation this time. Vitals Last set of Vitals Signs Vital Signs Date Time Temp Pulse Resp B/P (MAP) Pulse Ox O2 Delivery O2 Flow Rate FiO2 03/11/21 08:00 36.2 59 16 117/64 (81) 100 Room Air I&O I&O Intake and Output 03/11/21 00:00 Intake Total 2590 ml Output Total 1225 ml Balance 1365 ml Intake Oral 1590 ml IV Total 1000 ml Output Urine Total 1225 ml # Voids 1 # Bowel Movements 1 JEZ LAWLER MD Mar 11, 2021 10:21
[2021-03-11 12:00] VITALS: BP 119/55
--- NOTE | 2021-03-11 12:49 | History & Physicial ---
History of Present Illness History of Present Illness Reason for visit/HPI 65-year-old female admitted yesterday after having consultation with oncology here locally. She was found to be excruciating pain and at that time Dr. Bocanegra felt best the patient should be admitted for pain control and to begin workup for newly diagnosed adenocarcinoma with metastases to T9 as well as her right hip. She had been taking oxycodone 10 mg every 6 hours along with a fentanyl patch placed every 3 days. She has also been seeing orthopedics regarding her right hip. According to patient she has had x-rays of the hip and a hip replacement was being considered. She had CAT scan which revealed the lesions that appeared to be metastasis. Ultimately she underwent biopsy of the right acetabular region and showed adenocarcinoma consistent with breast cancer. She had mammogram performed June 2020 which was category 1. Date of Admission Mar 05, 2021 at 16:03 Date Seen by a Provider: Mar 06, 2021 Time Seen by a Provider: 06:50 I consulted on this patient on Attending Physician Desirae Bocanegra MD Admitting Physician Zan Griggs MD Consult Allergies and Home Medications Allergies Coded Allergies: No Known Drug Allergies (Unverified , 04/13/20) Patient Home Medication List Home Medication List Reviewed: Yes Atorvastatin Calcium (Atorvastatin Calcium) 40 Mg Tablet, 40 MG PO DAILY, (Reported) Entered as Reported by: CHONG DURANT on 11/22/19 1220 Last Action: Reviewed Calcium Carbonate (Calcium) 500 Mg Tablet, 500 MG PO DAILY, (Reported) Entered as Reported by: CLARK DEVLIN on 11/28/20 0936 Last Action: Reviewed Cholecalciferol (Vitamin D3) (Vitamin D3) 25 Mcg Capsule, 25 MCG PO DAILY, (Reported) Entered as Reported by: CHONG DURANT on 11/22/19 1220 Last Action: Reviewed Docusate Sodium (Stool Softener) 100 Mg Capsule, 100 MG PO DAILY, (Reported) Entered as Reported by: GALLO TRIPATHI on 01/26/20 1221 Last Action: Reviewed Fentanyl (Fentanyl Patch 25 MCG) 1 Each Patch.td72, 25 MCG TD Q72H, (Reported) Entered as Reported by: NADINE ADAMS on 03/06/21 1138 Last Action: Reviewed Glucosamine/D3/Boswellia Aggie (Osteo Bi-Flex Caplet) 1 Each Tablet, 1 EACH PO DAILY, (Reported) Entered as Reported by: CLARK DEVLIN on 11/28/20 0936 Last Action: Reviewed Lisinopril (Lisinopril) 20 Mg Tablet, 20 MG PO DAILY, (Reported) Entered as Reported by: NADINE ADAMS on 03/06/21 1131 Last Action: Reviewed Multivitamin (Multivitamin) 1 Each Tablet, 1 EACH PO DAILY, (Reported) Entered as Reported by: CHONG DURANT on 11/22/19 1220 Last Action: Reviewed Oxycodone HCl/Acetaminophen (Oxycodone-Acetaminophen 10-325) 1 Each Tablet, 1 EACH PO Q4H PRN for PAIN-MODERATE, (Reported) Entered as Reported by: NADINE ADAMS on 03/06/21 1132 Last Action: Reviewed Pantoprazole Sodium (Pantoprazole Sodium) 40 Mg Tablet.dr, 40 MG PO DAILY, (Reported) Entered as Reported by: CHONG DURANT on 11/22/19 1220 Last Action: Reviewed Vitamin E (Dl,Tocopheryl Acet) (Vitamin E) 450 Mg Capsule, 450 MG PO DAILY, (Rep orted) Entered as Reported by: GALLO TRIPATHI on 01/26/20 1221 Last Action: Reviewed Discontinued Medications Atorvastatin Calcium (Lipitor) 20 Mg Tablet, 20 MG PO DAILY, (Reported) Discontinued Reason: No Longer Taking Entered as Reported by: CLARK DEVLIN on 11/28/20 0936 Last Action: Discontinued Oxycodone HCl/Acetaminophen (Percocet 5-325 mg Tablet) 1 Each Tablet, 1-2 TAB PO Q4H PRN for PAIN-BREAKTHROUGH Discontinued Reason: No Longer Taking Prescribed by: JANAY HOPKINS on 02/05/21 1006 Last Action: Discontinued Past Oqdtfoo-Apwdtm-Lwnorq Hx Patient Social History Marrital Status: cohabiting Employed/Student: employed Alcohol Beverage of Choice: Wine Smoking Status: Former Smoker Former Smoker, Quit: Dec 12, 2019 2nd Hand Smoke Exposure: No Recent Hopitalizations: Yes (November) Have you traveled recently?: No Alcohol Use?: No Pt feels they are or have been: No Immunizations Up To Date Tetanus Booster (TDap): More than 5yrs Pediatric: No Seasonal Allergies Seasonal Allergies: No Surgeries Yes (D/C, BOWEL RESECTION) Abdominal, Bowel Surgery, Oophorectomy Respiratory Yes Currently Using CPAP: No Currently Using BIPAP: No Cardiovascular Yes High Cholesterol, Hypertension Neurological No 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 System Hx 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 Disorders: Yes (OOPHORECTOMY) Sexually Transmitted Disease: No HIV/AIDS: No Female 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 Disorders: Denies 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: Menopausal Genitourinary No Gastrointestinal Yes (COLON RESECTION/COLOSTOMY/[place]) Gastroesophageal Reflux, Chronic Constipation, Diverticulosis Musculoskeletal Yes (CHRONIC HIP PAIN ) Arthritis, Chronic Back Pain Endocrine History of Endocrine Disorders: No HEENT History of HEENT Disorders: Yes (dry eye syndrome) Loss of Vision: Denies Hearing Impairment: Denies Cancer No Psychosocial History of Psychiatric Problem: No Integumentary History of Skin or Integumenta: No Blood Transfusions History of Blood Disorders: No Adverse Reaction to a Blood Tr: No (N/A) Family Medical History Significant Family History: No Pertinent Family Hx Family Hx: Hypertension 19 MOTHER Review of Systems Constitutional: see HPI Physical Exam Vital Signs Vital Signs - First Documented 03/05/21 03/05/21 03/05/21 15:43 19:13 20:01 Temp 36.0 Pulse 100 Resp 18 B/P (MAP) 121/69 (86) Pulse Ox 96 O2 Delivery Room Air Capillary Refill : Height, Weight, BMI Height: 5'3.00" Weight: 157lbs. 0.0oz. [id number]; 25.97 BMI Method:Stated General Appearance: Moderate Distress (especially with movement to the hip and back) HEENT: Pharynx Normal Neck: Full Range of Motion Respiratory: Chest Non Tender, Lungs Clear, Normal Breath Sounds Cardiovascular: Regular Rate, Rhythm, No Edema, No Murmur Gastrointestinal: Normal Bowel Sounds, Non Tender, Soft Rectal: Deferred Extremity: Other (hip very tender with movement and palpation) Neurologic/Psychiatric: Oriented x3 Assessment/Plan Assessment and Plan 1. Adenocarcinoma to the right hip as well as spine specifically T9 -Dr. Bocanegra Place patient on [facility] to begin complete workup of the newly diagnosed adenocarcinoma. It appears radiation therapy as well later chemotherapy are in plan. 2. Uncontrolled severe pain to the back and right hip -Dr. 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 Hypertensioncontrolled -We'll monitor during course of stay Admission Diagnosis 1. Adenocarcinoma to the right hip as well as spine specifically T9 2. Uncontrolled severe pain to the back and right hip 3. Hypertensioncontrolled Admission Status: Inpatient Order (span 2 midnights) Reason for Inpatient Admission: initiateworkup for newly diagnosed adenocarcinoma consistent with breast that has spread. Also control her severe unrelenting pain ZAN GRIGGS MD Mar 11, 2021 12:49
--- NOTE | 2021-03-13 11:24 | Discharge Summary ---
Diagnosis/Chief Complaint Date of Admission Mar 05, 2021 at 16:03 Date of Discharge Mar 11, 2021 at 12:55 Discharge Date: Mar 11, 2021 Admission Diagnosis Admission Diagnosis 1. Adenocarcinoma of breast primary to the right hip as well as spine specifically T9 2. Uncontrolled severe pain to the back and right hip Discharge Diagnosis 1. Adenocarcinoma of breast primary to the right hip as well as spine specifically T9 2. Uncontrolled severe pain to the back and right hip Reason Hospital Visit 65-year-old female admitted yesterday after having consultation with oncology here locally. She was found to be excruciating pain and at that time Dr. Bocanegra felt best the patient should be admitted for pain control and to begin workup for newly diagnosed adenocarcinoma with metastases to T9 as well as her right hip. She had been taking oxycodone 10 mg every 6 hours along with a fentanyl patch placed every 3 days. She has also been seeing orthopedics regarding her right hip. According to patient she has had x-rays of the hip and a hip replacement was being considered. She had CAT scan which revealed the lesions that appeared to be metastasis. Ultimately she underwent biopsy of the right acetabular region and showed adenocarcinoma consistent with breast cancer. She had mammogram performed June 2020 which was category 1. 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 T9 spine lesion as well as right acetabular lesion. She was placed on fourth medical initially Dr. Bocanegra had ordered Dilaudid CALL OR CONTACT CENTRE COACH pump to help control her unrelenting pain to the right hip as well as her lower thoracic back. She was started on radiation therapy as well as chemotherapy during the course of her stay. She received tamoxifen 20 mg orally daily. She was ultimately switched to swing bed status on March 11, 2021. She had physical therapy and occupational therapy ordered during the course of her stay. With her having the excruciating pain, PT and OT were held initially.she also had Johnson catheter placed on March 11 due to her severe pain associated with getting out of bed and sitting on bedside commode. Nurses were vigilant at moving patient to p revent any pressure sore on her back and buttocks region. For the pain she did receive CALL OR CONTACT CENTRE COACH pump at 0.3 mg per hour of Dilaudid and 0.2 as a bolus if needed. Also during the course of her stay she had dyspepsia and this was treated with generic oral Protonix. Her pain was under better control and ultimately she was switched to swing bed with further therapy to continue. Dr. Vaughn also consult during the course of her stay. Procedures None. Consultations oncology Dr. Bocanegra and Dr Vaughn Discharge Physical Examination Allergies: Coded Allergies: No Known Drug Allergies (Unverified , 03/11/21) Vitals & I&Os Vital Signs Date Time Temp Pulse Resp B/P (MAP) Pulse Ox O2 Delivery O2 Flow Rate FiO2 03/11/21 12:00 36.7 107 20 119/55 (76) 94 Room Air General Appearance: Mild Distress Respiratory: Clear to Auscultation Cardiovascular: Regular Rate Abdominal: Soft Extremities: Other (tenderness of the right hip as well as of the thoracic back and lumbar back) Discharge Home Medications Reviewed and agree with Discharge Medication list on patient's Discharge Instruction sheet Instructions to Patient/Family Please see electronic discharge instructions given to patient. GLAIDS GRIGGS MD Mar 13, 2021 11:24
== END 2021-03-11 12:55 | disposition swing bed (61) | DRG 948 ==
LOC: 4TH 16:03
PROVIDERS: ADMIT Internal Medicine Hematology & Oncology; ATTEND Internal Medicine Hematology & Oncology
DX: G89.3 Neoplasm related pain (acute) (chronic) (principal); C79.51 Secondary malignant neoplasm of bone; C50.919 Malignant neoplasm of unspecified site of unspecified female breast; Z17.0 Estrogen receptor positive status [ER+]; R42 Dizziness and giddiness; K30 Functional dyspepsia; I10 Essential (primary) hypertension
CPT/HCPCS: 36410; 36415; 70553; 76937; 77290; 77295; 77300; 77334; 77417; 80053; 85007; 85025; 85027; 86300; 94760

== ENCOUNTER 2021-03-11 10:37 | Inpatient (IN) | payer MEDICARE ==
[~2021-03-11] VITALS: Ht 163 cm; Wt 76.0 kg
[~2021-03-11 10:37] MED LIST changes: +FENT1PAT8 TD; +OXYC-556 PO
[2021-03-11] MEDS ORDERED: PATIENT MAY USE OWN MEDS, ALL PO SCH (13:00)
[2021-03-11] MEDS ORDERED: SENNA W/DOCUSATE (SENOKOT S) TABLET PO PRN (13:00)
[2021-03-11] MEDS: NS IV 1000 ML 1,000 ML IV SCH (13:27)
--- NOTE | 2021-03-11 15:01 | Physical Therapy Progress Note ---
Therapy Progress Note Patient requests to begin in a.m. due to the intensity of today. Patient is resting comfortably and is tearful. PT to begin in a.m. JAISNO QUINN PT Mar 11, 2021 15:01
--- NOTE | 2021-03-11 15:34 | Occ Therapy Progress Note ---
Therapy Progress Note OT orders received and chart reviewed. Pt requests for therapy to begin tomorrow, as she has had an intense day and is resting comfortably. OT evaluation/tx to begin tomorrow. HO GUTHRIE OT Mar 11, 2021 15:34
[2021-03-11 16:14] VITALS: BP 127/72
[2021-03-11] MEDS: HYDROmorphone 2 MG/ML VIAL (DILAUDID) IV PRN (17:00)
[2021-03-11 18:00] VITALS: BP 127/72
[2021-03-11 20:21] VITALS: BP 106/68
[2021-03-11] MEDS: DOCUSATE SODIUM 100 MG (COLACE) CAP PO SCH (21:23)
[2021-03-12] MEDS: HYDROmorphone 2 MG/ML VIAL (DILAUDID) IV PRN (00:39)
[2021-03-12] MEDS: ALPRAZolam 0.25 MG (XANAX) TAB PO PRN (00:40)
[2021-03-12 05:06] VITALS: BP 121/71
--- NOTE | 2021-03-12 08:21 | Progress Note ---
Subjective Date Seen by a Provider: Mar 12, 2021 Time Seen by a Provider: 07:50 Subjective/Events-last exam patient had radiation therapy and began chemotherapy yesterday. She reports she feels a little bit better about movement and not as much pain but still fairly significant. Objective Exam Vital Signs Date Time Temp Pulse Resp B/P (MAP) Pulse Ox O2 Delivery O2 Flow Rate FiO2 03/12/21 07:37 97 Room Air 03/12/21 05:06 36.5 61 20 121/71 (88) 97 Room Air 03/11/21 21:23 Room Air 03/11/21 21:00 20 03/11/21 20:21 36.7 71 18 106/68 (81) 99 03/11/21 18:10 20 03/11/21 18:00 36.8 76 20 127/72 (90) 99 Room Air 03/11/21 16:14 36.8 76 20 127/72 (90) 99 Room Air 03/11/21 14:15 96 Room Air I & O 03/12/21 07:00 Intake Total 300 ml Output Total 1300 ml Balance -1000 ml Capillary Refill : General Appearance: Mild Distress Respiratory: Lungs Clear Cardiovascular: Regular Rate, Rhythm Assessment/Plan Assessment/Plan Assess & Plan/Chief Complaint 1. Adenocarcinoma breast primary with metastasis to right hip and T9 -Admitted now to swing bed 2. Intractable pain due to the metastasis -Dilaudid SALVAGE GRINDER pump GLADIS GRIGGS MD Mar 12, 2021 08:21
[2021-03-12] MEDS: ASPIRIN E.C. 81 MG (ECOTRIN) TAB PO SCH (09:21)
[2021-03-12] MEDS: polyethylene glycoL POWDER 17 GM (MIRALAX) PACK PO SCH (09:21)
[2021-03-12] MEDS: PANTOPRAZOLE 40 MG (PROTONIX) TAB PO SCH (09:21)
[2021-03-12] MEDS: DOCUSATE SODIUM 100 MG (COLACE) CAP PO SCH ×2 (09:21→21:10)
[2021-03-12] MEDS: FAMOTIDINE 20 MG (PEPCID) TABLET PO SCH (09:21)
[2021-03-12] MEDS: TAMOXIFEN 10 MG (NOLVADEX) TAB PO SCH (09:23)
--- NOTE | 2021-03-12 10:37 | Physical Therapy Evaluation ---
PT Evaluation-General Medical Diagnosis Admission Date Mar 11, 2021 at 13:02 Medical Diagnosis: uncontrolled pain,metastatic breast cancer/debility Onset Date: Mar 11, 2021 Therapy Diagnosis Therapy Diagnosis: debility/weakness Height/Weight Height (Feet): 5 Height (Inches): 3.00 Weight (Pounds): 157 Weight (Ounces): 0.0 Precautions Precautions/Isolations: Fall Prevention, Standard Precautions, Pressure Ulcer Referral Physician: Veronica Reason for Referral: Evaluation/Treatment Medical History Pertinent Medical History: HTN Additional Medical History breast cancer/adenocarcinoma with mets to T9 and right acetabulum Current History SWB status Reviewed History: Yes Social History Home: Single Level Current Living Status: Spouse Prior Prior Level of Function SCALE: Activities may be completed with or without assistive devices. 8-Wampkvofvx-qbzqmmg completes the activity by him/herself with no assistance from a helper. 5-Set-up or Clean-up Assistance-helper sets up or cleans up; patient completes activity. [place] assists only prior to or following the activity. 4-Supervision or Touching Assistance-helper provides verbal cues and/or touc felisha/steadying and/or contact guard assistance as patient completes activity. Assistance may be provided throughout the activity or intermittently. 3-Partial/Moderate Assistance-helper does LESS THAN HALF the effort. [place] lifts, holds or supports trunk or limbs, but provides less than half the effort. 2-Substantial/Maximal Assistance-helper does MORE THAN HALF the effort. [place] lifts or holds trunk or limbs and provides more than half the effort. 2-Jonrokuzm-osbqah does ALL the effort. Patient does none of the effort to complete the activity. Or, the assistance of 2 or more helpers is required for the patient to complete the activity. If activity was not attempted, code reason: 7-Patient Refused. 9-Not Applicable-not attempted and the patient did not perform the activity before the current illness, exacerbation or injury. 10-Not Attempted due to Environmental Limitations-(lack of equipment, weather restraints, etc.). 88-Not Attempted due to Medical Conditions or Safety Concerns. Bed Mobility: 3 Transfers (B,C,W/C): 3 Gait: 9 (per patient unable to ambulate for several weeks due to right hip pain.) Stairs: 9 Indoor Mobility (Ambulation): Not [place] Stairs: Not [place] Prior Devices Use: Manual wheelchair, Walker PT Evaluation-Current Subjective Patient agrees to PT. Pain Numeric Pain Scale: 7 Location: Medial Location Body Site: Back Pain Description: Sharp Objective Patient Orientation: Person, Time, Situation Attachments: Johnson Catheter, IV ROM/Strength ROM Lower Extremities bilateral LE WFL Strength Lower Extremities 3+/5 bilateral knee flexion/extension and DF/PF Integumentary/Posture Bowel Incontinence: No Bladder Incontinence: Johnson Cath Posture WFL Neuromuscular (Tone, Coordination, Reflexes) grossly intact Sensory Vision: Functional Hearing: Functional Transfers Roll Left & Right (QC): 3 Sit to Lying (QC): 3 Lying to Sitting/Side of Bed(Q: 3 Sit to Stand (QC): 3 Chair/Npn-sx-Dcduc Xfer(QC): 3 Toilet Transfer (QC): 3 Car Transfer (QC): 10 Gait Does the Patient Walk?: No and Walking Goal NOT indicated Walk 10 feet (QC): 88 Walk 50 ft with 2 Turns(QC): 9 Walk 150 ft (QC): 9 Walking 10ft/uneven surface-QC: 88 Comments/Gait Description due to acetabular fracture right hip and pain (patient is WBAT right hip per physician's report) Wheelchair Training Does the Pt Use a Wheelchair?: Yes Wheel 50 ft with 2 turns (QC): 88 Wheel 150 ft (QC): 9 Type of Wheelchair: Manual increase SOA with activity with increase back pain with minimal mobility Stairs 1 Step (curb) (QC): 9 4 Steps (QC): 9 12 Steps (QC): 9 Balance Sitting Static: Normal Sitting Dynamic: Normal Standing Static: Fair Standing Dynamic: Fair Picking up an Object (QC): 88 (due to T9 mets) Treatment bilateral LE exercises 15 reps each AP, LAQ, hip flexion (seated), standing weight shifting Assessment/Needs 65 y.o. female, will benefit from skilled PT to address functional strength and mobility to improve current LOF. Rehab Potential: Guarded PT Custodial Goals Makeup Editor Goals PT Custodial Goals Time Frame: Apr 06, 2021 Roll Left & Right (QC): 4 Sit to Lying (QC): 4 Lying-Sitting on Side/Bed(QC): 4 Sit to Stand (QC): 4 Chair/Djz-ji-Gkadq Xfer(QC): 4 Toilet Transfer (QC): 4 Car Transfer (QC): 4 Does the Patient Walk: No and Walking Goal IS indicated Walk 10 feet (QC): 3 Walk 50ft with 2 Turns (QC): 88 Walk 150 ft (QC): 88 Walking 10ft on Uneven Surface: 88 1 Step (curb) (QC): 9 4 Steps (QC): 9 12 Steps (QC): 9 Picking up an Object (QC): 88 Wheel 50 feet with 2 turns (QC: 88 Type: N/A Wheel 150 feet: 88 Type: N/A PT Plan Problem List Problem List: Activity Tolerance, Functional Strength, Safety, Balance, Gait, Transfer, Bed Mobility Treatment/Plan Treatment Plan: Continue Plan of Care Treatment Plan: Bed Mobility, Education, Functional Activity Radha, Functional Strength, Gait, Safety, Therapeutic Exercise, Transfers Treatment Duration: Apr 06, 2021 Frequency: 6 times per week Estimated Hrs Per Day: .25 hour per day Patient and/or Family Agrees t: Yes Time/GCodes Time In: 931 Time Out: 954 Total Billed Treatment Time: 23 Total Billed Treatment 1 visit EVModC 8 min EX 15 min JAISON QUINN PT Mar 12, 2021 10:37
--- NOTE | 2021-03-12 12:06 | Occupational Therapy Eval ---
OT Evaluation-General/PLF Medical Diagnosis Admission Date Mar 11, 2021 at 13:02 Medical Diagnosis: uncontrolled pain,metastatic breast cancer/debility Onset Date: Mar 11, 2021 Therapy Diagnosis Therapy Diagnosis: weakness, decreased ADL Status Height/Weight Height (Feet): 5 Height (Inches): 3.00 Weight (Pounds): 157 Weight (Ounces): 0.0 Precautions Precautions/Isolations: Fall Prevention, Standard Precautions, Pressure Ulcer Referral Physician: Veronica Medical History Pertinent Medical History: HTN Additional Medical History breast cancer/adenocarcinoma with mets to T9 and right acetabulum Current History SWB status Social History Home: Single Level Current Living Status: Significant Other Entry Into Home: Level Entry 2 small thresholds to go over into the house, a few inches in height. Pt denies having stairs to get into home. ADL-Prior Level of Function SCALE: Activities may be completed with or without assistive devices. 0-Nkmdjrxdni-jpvrmzs completes the activity by him/herself with no assistance from a helper. 5-Set-up or Clean-up Assistance-helper sets up or cleans up; patient completes activity. [place] assists only prior to or following the activity. 4-Supervision or Touching Assistance-helper provides verbal cues and/or touching/steadying and/or contact guard assistance as patient completes activity. Assistance may be provided throughout the activity or intermittently. 3-Partial/Moderate Assistance-helper does LESS THAN HALF the effort. [place] lifts, holds or supports trunk or limbs, but provides less than half the effort. 2-Substantial/Maximal Assistance-helper does MORE THAN HALF the effort. [place] lifts or holds trunk or limbs and provides more than half the effort. 2-Ozajixsir-xjtvfj does ALL the effort. Patient does none of the effort to complete the activity. Or, the assistance of 2 or more helpers is required for the patient to complete the activity. If activity was not attempted, code reason: 7-Patient Refused. 9-Not Applicable-not attempted and the patient did not perform the activity before the current illness, exacerbation or injury. 10-Not Attempted due to Environmental Limitations-(lack of equipment, weather restraints, etc.). 88-Not Attempted due to Medical Conditions or Safety Concerns. ADL PLOF Comments Pt reports roughly a month ago, she required SBA with ADLs. During the last month, she has gotten progressively weaker and increased pain, so her SO would dependently perform shower, dressing, and toileting tasks. Pt reports she was still able to feed herself, but had poor appetite, eating very little. For the last month, pt has been w/c level. Self Care: Needed Some Help Functional Cognition: Independent DME/Equipment: Bath Chair, Shower DME/Equipment Comments Walker, manual w/c OT Current Status Subjective Pt laying in bed, requests bed level tx as she is comfortable where she is and just returned to bed. Mental Status/Objective Patient Orientation: Person, Place, Situation Attachments: Johnson Catheter, IV Current Upper Extremity ROM WFL, BUE shoulder flexion to approx 150 degrees Upper Extremity Coordination WFL Upper Extremity Sensation WFL Upper Extremity Strength grossly 3/5, not formally tested due to reports of pain with movements. ADL-Treatment Eating (QC): 6 (Per nursing staff report.) Oral Hygiene (QC): 5 (per nursing staff report.) Shower/Bathe Self (QC): 1 (Pt declined today, per nursing staff, pt required total assist due to increase pain with sitting in [place].) Upper Body Dressing (QC): 3 (Min A overall with hospital gown) Lower Body Dressing (QC): 7 (Pt declined LE clothing) On/Off Footwear (QC): 1 (Based on clincial judgment and reports of pain with movement. Total assistance required.) Toileting Hygiene (QC): 1 (catheter) Other Treatments Pt laying in bed, OT educated pt on purpose and benefits of therapy. Pt provided information about PLOF and home set up. Pt declines ADLs at this time, nursing staff indicate pt just showered yesterday. QC scores based on nursing report and pt report. Pt agreeable to BUE exercises in order to increase BUE strength and activity tolerance, completing x8 of the following AROM: shoulder flexion, elbow flexion/extension, horizontal abduction/adduction, and finger flexion/extension. OT educated pt to complete exercises throughout the day as able, increasing reps to tolerance. Post tx, pt in bed, call light in reach and all needs met. Education OT Patient Education: Correct positioning, Energy conservation, Exercise program, Modified ADL techniques, Progress toward Goal/Update tx plan, Purpose of tx/functional activities, Rehab process Teaching Recipient: Patient Teaching Methods: Discussion Response to Teaching: Verbalize Understanding OT Welder Assistant Goals Welder Assistant Goals Time Frame: Apr 05, 2021 Eating (QC): 6 Oral Hygiene (QC): 5 Toileting Hygiene (QC): 3 Shower/Bathe Self (QC): 3 Upper Body Dressing (QC): 5 Lower Body Dressing (QC): 3 On/Off Footwear (QC): 3 Additional Goals: 1-Demonstrate ADL Tasks, 2-Verbalize Understanding, 3- ImproveStrength/Radha 1=Demonstrate adherence to instructed precautions during ADL tasks. 2=Patient will verbalize/demonstrate understanding of assistive devices/modifications for ADL. 3=Patient will improve strength/tolerance for activity to enable patient to perform ADL's. OT Education/Plan Problem List/Assessment Assessment: Decreased Activ Tolerance, Decreased UE Strength, Impaired Funct Balance, Impaired I ADL's, Impaired Self-Care Skills Pt would benefit from skilled OT services in order to increase safety and independence with ADLs, education on AE for LE dressing in order to minimize pain, and activity modification education. Discharge Recommendations Plan/Recommendations: Continue POC Barriers to Progress Pain level with movement. Treatment Plan/Plan of Care Patient would benefit from OT for education, treatment and training to promote independence in ADL's, mobility, safety and/or upper extremity function for ADL's. Plan of Care: ADL Retraining, Functional Mobility, UE Funct Exercise/Act Treatment Duration: Apr 05, 2021 Frequency: 5 times per week Estimated Hrs Per Day: .25 hour per day Rehab Potential: Guarded Time/GCodes Start Time: 11:35 Stop Time: 12:00 Total Time Billed (hr/min): 25 Billed Treatment Time 1, EVM (10'), EX (15') HO GUTHRIE OT Mar 12, 2021 12:06
[2021-03-12] MEDS: NS IV 1000 ML 1,000 ML IV SCH ×2 (13:33→21:08)
[2021-03-12 15:24] VITALS: BP 121/70
[2021-03-12 18:00] VITALS: BP 114/72
[2021-03-13] VITALS (13 sets, daily range): BP systolic 109–143; BP diastolic 58–95
[2021-03-13] MEDS: HYDROmorphone 2 MG/ML VIAL (DILAUDID) IV PRN ×3 (02:54→20:18)
--- NOTE | 2021-03-13 09:44 | Physical Therapy Daily Note ---
PT Daily Note-Current Subjective Patient sitting in wheelchair upon PT arrival, reports she is supposed to get a shower soon, but agreeable to treatment. Rates pain in her right hip and mid- back at 6/10 currently. Mental Status Patient Orientation: Person, Place, Time, Situation Transfers SCALE: Activities may be completed with or without assistive devices. 3-Wwygjuzjwy-fbrhjta completes the activity by him/herself with no assistance from a helper. 5-Set-up or Clean-up Assistance-helper sets up or cleans up; patient completes activity. [place] assists only prior to or following the activity. 4-Supervision or Touching Assistance-helper provides verbal cues and/or touching/steadying and/or contact guard assistance as patient completes activity. Assistance may be provided throughout the activity or intermittently. 3-Partial/Moderate Assistance-helper does LESS THAN HALF the effort. [place] lifts, holds or supports trunk or limbs, but provides less than half the effort. 2-Substantial/Maximal Assistance-helper does MORE THAN HALF the effort. [place] lifts or holds trunk or limbs and provides more than half the effort. 8-Cycbnohrm-kmsauh does ALL the effort. Patient does none of the effort to complete the activity. Or, the assistance of 2 or more helpers is required for the patient to complete the activity. If activity was not attempted, code reason: 7-Patient Refused. 9-Not Applicable-not attempted and the patient did not perform the activity before the current illness, exacerbation or injury. 10-Not Attempted due to Environmental Limitations-(lack of equipment, weather restraints, etc.). 88-Not Attempted due to Medical Conditions or Safety Concerns. Sit to Stand (QC): 3 Chair/Cjd-kb-Snyhd Xfer(QC): 3 Toilet Transfer (QC): 3 Weight Bearing Right Lower Extremity: Right Weight Bearing/Tolerated Gait Training Does the Patient Walk?: No and Walking Goal NOT indicated Exercises Seated Therapy Exercises: Ankle pumps, Long arc quads, Hip flexion, Hamstring Curls, Hip abd/add Seated Reps: 20 Treatments Visit, FA, EX Assessment Current Status: Fair Progress Patient tolerated treatment fair. Performs LE therapeutic exercise as listed above, right hip flexion/marching not performed due to pain. Patient performs all observed transfers with min/mod A and verbal cues. Patient is able to perform static standing ~2-3 minutes x 2 reps with min/mod A. Patient attempts to put full weight through the right LE, however maintains a right flexed knee, slight ankle PF position with increased weight through left LE and UEs. Patient transfers to shower chair with mod A. Patient with ELECTRICAL CAD TECHNICIAN post PT treatment with all needs met, ELECTRICAL CAD TECHNICIAN taking patient to shower. PT Custodial Goals Custodial Goals PT Bulker Goals Time Frame: Apr 06, 2021 Roll Left & Right (QC): 4 Sit to Lying (QC): 4 Lying-Sitting on Side/Bed(QC): 4 Sit to Stand (QC): 4 Chair/Mbh-ti-Luitn Xfer(QC): 4 Toilet Transfer (QC): 4 Car Transfer (QC): 4 Does the Patient Walk: No and Walking Goal IS indicated Walk 10 feet (QC): 3 Walk 50ft with 2 Turns (QC): 88 Walk 150 ft (QC): 88 Walking 10ft on Uneven Surface: 88 1 Step (curb) (QC): 9 4 Steps (QC): 9 12 Steps (QC): 9 Picking up an Object (QC): 88 Wheel 50 feet with 2 turns (QC: 88 Type: N/A Wheel 150 feet: 88 Type: N/A PT Plan Treatment/Plan Treatment Plan: Continue Plan of Care Treatment Plan: Bed Mobility, Education, Functional Activity Radha, Functional Strength, Gait, Safety, Therapeutic Exercise, Transfers Treatment Duration: Apr 06, 2021 Frequency: 6 times per week Estimated Hrs Per Day: .25 hour per day Patient and/or Family Agrees t: Yes Safety Risks/Education Patient Education: Transfer Techniques, Reviewed Precautions Teaching Recipient: Patient Teaching Methods: Demonstration, Discussion Response to Teaching: Verbalize Understanding, Return Demonstration Time/GCodes Time In: 900 Time Out: 925 Total Billed Treatment Time: 25 Total Billed Treatment Visit, ELEAZAR ISLAS JOHN A PT Mar 13, 2021 09:44
--- NOTE | 2021-03-13 10:06 | Consultation - Surgery ---
JORGE MALLORY MED STUDENT 03/13/21 1006: History of Present Illness History of Present Illness Patient Consulted On(darren/time) 03/13/21 10:01 Date Seen by Provider: Mar 13, 2021 Time Seen by Provider: 09:45 Reason for Visit: Consult for Port placement History of Present Illness Consulted by Dr. Martin on 65 yo female who needs port placement for chemotherapy administration. Pt was recently diagnosed with metastatic breast adenocarcinoma and is currently hospitalized on SWB status. Pt has CHILD PSYCHIATRIST pump for pain control and is undergoing palliative radiation. Pt had midline placed, but this failed, so port is now being considered for chemotherapy. Pt denies fever, chills, N/V, FRANCO, dizziness, SOA or chest pain. Pt is ready to proceed with procedure as she is hungry from NPO status. Allergies and Home Medications Allergies Coded Allergies: No Known Drug Allergies (Unverified , 03/11/21) Patient Home Medication List Atorvastatin Calcium (Atorvastatin Calcium) 40 Mg Tablet, 40 MG PO DAILY, (Reported) Entered as Reported by: CHONG DURANT on 11/22/19 1220 Calcium Carbonate (Calcium) 500 Mg Tablet, 500 MG PO DAILY, (Reported) Entered as Reported by: CLARK DEVLIN on 11/28/20 0936 Cholecalciferol (Vitamin D3) (Vitamin D3) 25 Mcg Capsule, 25 MCG PO DAILY, (Reported) Entered as Reported by: CHONG DURANT on 11/22/19 1220 Docusate Sodium (Stool Softener) 100 Mg Capsule, 100 MG PO DAILY, (Reported) Entered as Reported by: GALLO TRIPATHI on 01/26/20 1221 Fentanyl (Fentanyl Patch 25 MCG) 1 Each Patch.td72, 25 MCG TD Q72H, (Reported) Entered as Reported by: NADINE ADAMS on 03/06/21 1138 Glucosamine/D3/Boswellia Aggie (Osteo Bi-Flex Caplet) 1 Each Tablet, 1 EACH PO DAILY, (Reported) Entered as Reported by: CLARK DEVLIN on 11/28/20 0936 Lisinopril (Lisinopril) 20 Mg Tablet, 20 MG PO DAILY, (Reported) Entered as Reported by: NADINE ADAMS on 03/06/21 1131 Multivitamin (Multivitamin) 1 Each Tablet, 1 EACH PO DAILY, (Reported) Entered as Reported by: CHONG DURANT on 11/22/19 1220 Oxycodone HCl/Acetaminophen (Oxycodone-Acetaminophen 10-325) 1 Each Tablet, 1 EACH PO Q4H PRN for PAIN-MODERATE, (Reported) Entered as Reported by: NADINE ADAMS on 03/06/21 1132 Pantoprazole Sodium (Pantoprazole Sodium) 40 Mg Tablet.dr, 40 MG PO DAILY, (Rep orted) Entered as Reported by: CHONG DURANT on 11/22/19 1220 Vitamin E (Dl,Tocopheryl Acet) (Vitamin E) 450 Mg Capsule, 450 MG PO DAILY, (Reported) Entered as Reported by: GALLO TRIPATHI on 01/26/20 1221 Discontinued Medications Atorvastatin Calcium (Lipitor) 20 Mg Tablet, 20 MG PO DAILY, (Reported) Discontinued Reason: No Longer Taking Entered as Reported by: CLARK DEVLIN on 11/28/20 0936 Oxycodone HCl/Acetaminophen (Percocet 5-325 mg Tablet) 1 Each Tablet, 1-2 TAB PO Q4H PRN for PAIN-BREAKTHROUGH Discontinued Reason: No Longer Taking Prescribed by: JANAY HOPKINS on 02/05/21 1006 Past Hbhydht-Yppois-Lmujmk Hx Patient Social History Former Smoker, Quit: Dec 12, 2019 Type Used: Cigarettes 2nd Hand Smoke Exposure: No Recent Hopitalizations: Yes (November) Immunizations Up To Date Tetanus Booster (TDap): More than 5yrs PED Vaccines UTD: No Seasonal Allergies Seasonal Allergies: No Surgeries History of Surgeries: Yes (D/C, BOWEL RESECTION) Surgeries: Abdominal, Bowel Surgery, Oophorectomy Respiratory History of Respiratory Disorde: Yes Respiratory Disorders: Pneumonia Cardiovascular History of Cardiac Disorders: Yes Cardiac Disorders: High Cholesterol, Hypertension Neurological History of Neurological Disord: No 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 System Hx 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 Disorders: Yes (OOPHORECTOMY) Sexually Transmitted Disease: No HIV/AIDS: No Female 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 Disorders: Denies TECHNICAL ASSOCIATE History: Menopausal Genitourinary History of Genitourinary Disor: No Gastrointestinal History of Gastrointestinal Di: Yes (COLON RESECTION/COLOSTOMY/TAKEDOWN) Gastrointestinal Disorders: Gastroesophageal Reflux, Chronic Constipation, Diverticulosis Musculoskeletal History of Musculoskeletal Dis: Yes (CHRONIC HIP PAIN ) Musculoskeletal Disorders: Arthritis, Chronic Back Pain Endocrine History of Endocrine Disorders: No HEENT History of HEENT Disorders: Yes (dry eye syndrome) Loss of Vision: Denies Hearing Impairment: Denies Cancer History of Cancer: No Psychosocial History of Psychiatric Problem: No Integumentary History of Skin or Integumenta: No Blood Transfusions History of Blood Disorders: No Adverse Reaction to a Blood Tr: No (N/A) Family Medical History Significant Family History: No Pertinent Family Hx Family Medial History: Hypertension 19 MOTHER Review of Systems-General Constitutional: No chills, No dizziness, No fever Respiratory: No cough, No short of breath Cardiovascular: No chest pain, No palpitations Gastrointestinal: No abdominal pain, No constipation, No diarrhea, No nausea, No vomiting Genitourinary: no symptoms reported Skin: no symptoms reported Psychiatric/Neurological: No Symptoms Reported Physical Exam-General Problems Physical Exam Vital Signs Vital Signs - First Documented 03/11/21 03/11/21 14:15 16:14 Temp 36.8 Pulse 76 Resp 20 B/P (MAP) 127/72 (90) Pulse Ox 96 O2 Delivery Room Air Capillary Refill : General Appearance: WD/WN, no apparent distress HEENT: PERRL/EOMI, normal ENT inspection Neck: non-tender, full range of motion Respiratory: chest non-tender, no respiratory distress, no accessory muscle use Cardiovascular: no edema, no JVD Gastrointestinal: non tender, soft Extremities: normal range of motion, normal inspection, no pedal edema, no calf tenderness Neurologic/Psychiatric: manager supply chain planning II-XII nml as tested, no motor/sensory deficits, alert, normal mood/affect, oriented x 3 Skin: normal color, warm/dry Assessment/Plan Assessment/Plan Admission Diagonsis Adenocarcinoma of breast with extensive metastasis Assessment/Plan Adenocarcinoma breast primary with metastasis to right hip and T9 -Admitted now to swing bed -Will place port for chemotherapy administration Intractable pain due to the metastasis -Dilaudid CHILD PSYCHIATRIST pump Pt consents to port placement STEPHANY TELLEZ DO 03/13/21 1126: History of Present Illness History of Present Illness History of Present Illness Consult requested by Dr. Bocanegra for port placmeent. Patient is 65 year old female found to have metastatic breast adenocarcinoma. Recently admitted to hospital and undergoing palliative radiation for bone pain. Patient needs with poor v enous access and is likely going to have chemotherapy and would like to discuss having a port placed. Denies n/v fever sweats chills shortness of breath or chest pain at this time. Allergies and Home Medications Allergies Coded Allergies: No Known Drug Allergies (Unverified , 03/11/21) Patient Home Medication List Home Medication List Reviewed: Yes Atorvastatin Calcium (Atorvastatin Calcium) 40 Mg Tablet, 40 MG PO DAILY, (Reported) Entered as Reported by: CHONG DURANT on 11/22/19 1220 Calcium Carbonate (Calcium) 500 Mg Tablet, 500 MG PO DAILY, (Reported) Entered as Reported by: CLARK DEVLIN on 11/28/20 0936 Cholecalciferol (Vitamin D3) (Vitamin D3) 25 Mcg Capsule, 25 MCG PO DAILY, (Reported) Entered as Reported by: CHONG DURANT on 11/22/19 1220 Docusate Sodium (Stool Softener) 100 Mg Capsule, 100 MG PO DAILY, (Reported) Entered as Reported by: GALLO TRIPATHI on 01/26/20 1221 Fentanyl (Fentanyl Patch 25 MCG) 1 Each Patch.td72, 25 MCG TD Q72H, (Reported) Entered as Reported by: NADINE ADAMS on 03/06/21 1138 Glucosamine/D3/Boswellia Aggie (Osteo Bi-Flex Caplet) 1 Each Tablet, 1 EACH PO DAILY, (Reported) Entered as Reported by: CLARK DEVLIN on 11/28/20 0936 Lisinopril (Lisinopril) 20 Mg Tablet, 20 MG PO DAILY, (Reported) Entered as Reported by: NADINE ADAMS on 03/06/21 1131 Multivitamin (Multivitamin) 1 Each Tablet, 1 EACH PO DAILY, (Reported) Entered as Reported by: CHONG DURANT on 11/22/19 1220 Oxycodone HCl/Acetaminophen (Oxycodone-Acetaminophen 10-325) 1 Each Tablet, 1 EACH PO Q4H PRN for PAIN-MODERATE, (Reported) Entered as Reported by: NADINE ADAMS on 03/06/21 1132 Pantoprazole Sodium (Pantoprazole Sodium) 40 Mg Tablet.dr, 40 MG PO DAILY, (Reported) Entered as Reported by: CHONG DURANT on 11/22/19 1220 Vitamin E (Dl,Tocopheryl Acet) (Vitamin E) 450 Mg Capsule, 450 MG PO DAILY, (Reported) Entered as Reported by: GALLO TRIPATHI on 01/26/20 1221 Discontinued Medications Atorvastatin Calcium (Lipitor) 20 Mg Tablet, 20 MG PO DAILY, (Reported) Discontinued Reason: No Longer Taking Entered as Reported by: CLARK DEVLIN on 11/28/20 0936 Oxycodone HCl/Acetaminophen (Percocet 5-325 mg Tablet) 1 Each Tablet, 1-2 TAB PO Q4H PRN for PAIN-BREAKTHROUGH Discontinued Reason: No Longer Taking Prescribed by: JANAY HOPKINS on 02/05/21 1006 Past Buikuyr-Ogcflz-Gitfdw Hx Reviewed Nursing Assessment Reviewed/Agree w Nursing PMH: Yes Family Medical History Significant Family History: No Pertinent Family Hx Family Medial History: Hypertension 19 MOTHER Review of Systems-General Constitutional: No chills, No dizziness, No fever EENTM: No blurred vision, No double vision Respiratory: No cough, No short of breath Cardiovascular: No chest pain, No palpitations Gastrointestinal: No abdominal pain, No constipation, No diarrhea, No nausea, No vomiting Genitourinary: No decreased output, No discharge (musculoskeletal pain.) Musculoskeletal: other Skin: No change in color, No change in hair/nails Psychiatric/Neurological: Denies Depressed, Denies Emotional Problems All Other Systems Reviewed Negative Unless Noted: Yes (Negative excepted noted.) Physical Exam-General Problems Physical Exam General Appearance: WD/WN, no apparent distress HEENT: PERRL/EOMI, normal ENT inspection Neck: non-tender, full range of motion Respiratory: chest non-tender, no respiratory distress, no accessory muscle use Cardiovascular: regular rate, rhythm, no JVD Gastrointestinal: non tender, soft Rectal: deferred Back: no CVA tenderness, no vertebral tenderness Extremities: normal range of motion, normal inspection, no pedal edema, no calf tenderness Neurologic/Psychiatric: manager supply chain planning II-XII nml as tested, no motor/sensory deficits, alert, normal mood/affect, oriented x 3 Skin: normal color, warm/dry Lymphatic: no adenopathy Assessment/Plan Assessment/Plan Assessment/Plan Adenocarcinoma breast primary with metastasis to right hip and T9 -Admitted now to swing bed -Will place port for chemotherapy administration Intractable pain due to the metastasis -Dilaudid CHILD PSYCHIATRIST pump Consent for port placement. She understands risks and benefits and wishes to proceed. NPO Supervisory-Addendum Brief Verification & Attestation Participated in pt care: history, MDM, physical Personally performed: exam, history, MDM, supervision of care Care discussed with: Medical Student Procedures: n/a Results interpretation: Verified all documentation Verification and Attestation of Medical Student E/M Service A medical student performed and documented this service in my presence. I reviewed and verified all information documented by the medical student and made modifications to such information, when appropriate. I personally performed the physical exam and medical decision making. Stephany Tellez, Mar 13, 2021,11:26 JORGE MALLORY MED STUDENT Mar 13, 2021 10:06 STEPHANY TELLEZ DO Mar 13, 2021 11:26
[2021-03-13] MEDS: ASPIRIN E.C. 81 MG (ECOTRIN) TAB PO SCH (11:03)
[2021-03-13] MEDS: DOCUSATE SODIUM 100 MG (COLACE) CAP PO SCH ×2 (11:03→20:01)
[2021-03-13] MEDS: polyethylene glycoL POWDER 17 GM (MIRALAX) PACK PO SCH (11:03)
[2021-03-13] MEDS: TAMOXIFEN 10 MG (NOLVADEX) TAB PO SCH (11:04)
[2021-03-13] MEDS: PANTOPRAZOLE 40 MG (PROTONIX) TAB PO SCH (11:04)
[2021-03-13] MEDS: FAMOTIDINE 20 MG (PEPCID) TABLET PO SCH (11:04)
[2021-03-13] MEDS ORDERED: MIDAZOLAM 2 MG/2 ML (VERSED) VIAL ONE (12:59)
[2021-03-13] MEDS: HYDROmorphone PF INJECTION 40 MG in NS (IVPB) 96 ML IV SCH (13:25)
--- NOTE | 2021-03-13 13:57 | Occupational Ther Daily Note ---
OT Current Status-Daily Note Subjective Pt laying in bed, agreeable to OT tx. Pt had family at bedside. Mental Status/Objective Patient Orientation: Person, Place, Time, Situation Attachments: Johnson Catheter, IV ADL-Treatment Therapy Code Descriptions/Definitions Functional [place] Measure: 0=Not Assessed/NA 4=Minimal Assistance 1=Total Assistance 5=Supervision or Setup 2=Maximal Assistance 6=Modified [place] 3=Moderate Assistance 7=Complete IndependenceSCALE: Activities may be completed with or without assistive devices. 1-Fcuwoszwvc-dhvulvo completes the activity by him/herself with no assistance from a helper. 5-Set-up or Clean-up Assistance-helper sets up or cleans up; patient completes activity. [place] assists only prior to or following the activity. 4-Supervision or Touching Assistance-helper provides verbal cues and/or touching/steadying and/or contact guard assistance as patient completes activity. Assistance may be provided throughout the activity or intermittently. 3-Partial/Moderate Assistance-helper does LESS THAN HALF the effort. [place] lifts, holds or supports trunk or limbs, but provides less than half the effort. 2-Substantial/Maximal Assistance-helper does MORE THAN HALF the effort. [place] lifts or holds trunk or limbs and provides more than half the effort. 4-Bdvhejeki-egtzxt does ALL the effort. Patient does none of the effort to complete the activity. Or, the assistance of 2 or more helpers is required for the patient to complete the activity. If activity was not attempted, code reason: 7-Patient Refused. 9-Not Applicable-not attempted and the patient did not perform the activity before the current illness, exacerbation or injury. 10-Not Attempted due to Environmental Limitations-(lack of equipment, weather restraints, etc.). 88-Not Attempted due to Medical Conditions or Safety Concerns. Eating (QC): 88 (NPO at time of tx.) Shower/Bathe Self (QC): 1 (per pt report) Lower Body Dressing (QC): 7 (Pt declined LE clothing) On/Off Footwear: 1 (total assist footwear per pt report.) Toileting Hygiene (QC): 1 (catheter) Other Treatment Pt laying in bed, states she is waiting to go get her port placed. Pt currently NPO, and she feels hungry, but understands she is unable to have anything at this time. Pt showered this morning with nursing, pt states total assist due to time constraint and increased pain with sitting for periods of time. OT educated pt on AE for LE dressing, demonstrating using a rags laborer to doff footwear, using rags laborer to don LE clothing over feet, and using rags laborer to doff LE clothing. Pt verbalized understanding, able to utilize rags laborer at bed level in order to grasp sheet at various levels. OT then demonstrated ability to don socks using sock aide, pt verbalized understanding. Pt indicates these tools would be helpful in order to minimize pain and increase independence with ADLs. OT also left long handled sponge in pt's room, educated pt on using it in the shower for LE dressing. Pt verbalized understanding of all AE, declining attempting AE on this date due to being comfortable at this time, and not wanting to cause increased pain with movements. Agreeable to trialing equipment later in the week. Post tx, pt in bed, call light in reach and all needs met. Education OT Patient Education: Correct positioning, Energy conservation, Modified ADL techniques, Progress toward Goal/Update tx plan, Purpose of tx/functional activities, Use of adapted equipment Teaching Recipient: Patient, Family Teaching Methods: Demonstration, Discussion Response to Teaching: Verbalize Understanding OT Fpc Goals Sail Lay Out Worker Goals Time Frame: Apr 05, 2021 Eating (QC): 6 Oral Hygiene (QC): 5 Toileting Hygiene (QC): 3 Shower/Bathe Self (QC): 3 Upper Body Dressing (QC): 5 Lower Body Dressing (QC): 3 On/Off Footwear (QC): 3 Additional Goals: 1-Demonstrate ADL Tasks, 2-Verbalize Understanding, 3- ImproveStrength/Radha 1=Demonstrate adherence to instructed precautions during ADL tasks. 2=Patient will verbalize/demonstrate understanding of assistive devices/modifications for ADL. 3=Patient will improve strength/tolerance for activity to enable patient to perform ADL's. OT Education/Plan Problem List/Assessment Assessment: Decreased Activ Tolerance, Decreased UE Strength, Impaired Funct Balance, Impaired I ADL's, Impaired Self-Care Skills Pt would benefit from skilled OT services in order to increase safety and i ndependence with ADLs, education on AE for LE dressing in order to minimize pain, and activity modification education. Discharge Recommendations Plan/Recommendations: Continue POC Equpiment Recommendations-D/C: Cottrell Operator, Sock Aide Treatment Plan/Plan of Care Patient would benefit from OT for education, treatment and training to promote independence in ADL's, mobility, safety and/or upper extremity function for ADL's. Plan of Care: ADL Retraining, Functional Mobility, UE Funct Exercise/Act Treatment Duration: Apr 05, 2021 Frequency: 5 times per week Estimated Hrs Per Day: .25 hour per day Rehab Potential: Guarded Time/GCodes Start Time: 13:10 Stop Time: 13:25 Total Time Billed (hr/min): 15 Billed Treatment Time 1, ADL HO GUTHRIE OT Mar 13, 2021 13:57
[2021-03-13] MEDS ORDERED: LIDOCAINE/EPI 1%-1:100,000 (XYLOCAINE) 20ML ONE (14:09)
[2021-03-13] MEDS ORDERED: HEParin (CENTRAL IV FLUSH) 500 UNIT/5 ML SYR ONE (14:09)
[2021-03-13] MEDS ORDERED: 0.9% SODIUM CHLORIDE PF INJ 20 ML VIAL ONE (14:09)
[2021-03-13] MEDS ORDERED: ceFAZolin INJECTION 1,000 MG VIAL IV NR (17:00)
[2021-03-13] MEDS ORDERED: ceFAZolin INJECTION 1,000 MG ONE (17:03)
[2021-03-13] MEDS ORDERED: PROPOFOL INJECTION 50 ML IV ONE (17:07)
--- NOTE | 2021-03-13 17:32 | Progress Note-Post Operative ---
Post-Operative Progess Note Surgeon (s)/[employer] (s) Surgeon STEPHANY TELLEZ DO Con[employer]: na Pre-Operative Diagnosis metastatic breast adenocarcinoma Post-Operative Diagnosis same Procedure & Operative Findings Date of Procedure 03/13/21 Procedure Performed/Findings PROCEDURE: Right internal jugular port placement using ultrasound guidance. COMPLICATIONS: None. INDICATIONS: The patient is a 65 year old female with metastatic breast adenocarcinoma. Patient understands the risks and benefits of port placement and wished to proceed with the procedure. Consent was signed on the chart. PROCEDURE: The patient was taken to the operating suite, was prepped and draped in the sterile fashion. A surgical pause was performed. Ultrasound was used to locate the internal jugular vein. Once located anesthetic was infiltrated above it. Using micro-access kit, the right internal vein was accessed. Dark nonpulsatile blood was withdrawn. The wire was inserted. Fluoroscopy assured proper placement. The needle was removed. The micro-access dilator was advanced over the wire and the wire was removed. The regular wire was inserted and fluoroscopy assured proper placement. The wire was then secured. Local anesthetic was used to anesthetize from the neck for tunneling down to the right chest and for pocket creation. A 15 blade scalpel was used to make an incision over the right chest. Cautery was used to dissect down to the pectoral fascia. A pocket was created with blunt dissection. The dilator sheath was then advanced over the wire under fluoroscopy and the dilator and wire were removed. The Groshong catheter was inserted through the sheath and the sheath was then removed. The Groshong wire was removed. The catheter was then tunneled to the right chest pocket. Fluoroscopy was used to cut to length and this was then attached to the port which was then placed within the pocket. The port was then accessed without difficulty. It was then flushed with saline and then heparin. The subcutaneous tissues were then reapproximated using 3-0 Vicryl. The areas were then washed and dried. Skin Affix was placed over incision. The insertion point of the neck Skin Affix was placed over the incision. The patient tolerated the procedure well without complication and was taken to recovery room in stable condition. Chest x-ray is pending. Anesthesia Type mac c local Estimated Blood Loss Estimated blood loss (mL): minimal Specimens/Packing Specimens Removed STEPHANY Marques DO Mar 13, 2021 17:32
--- NOTE | 2021-03-13 17:51 | Diagnostic Imaging Report ---
INDICATION: Mediport insertion IMPRESSION: 14 seconds of fluoroscopy was provided for the insertion of a right IJ Mediport. Dictated by: Dictated on workstation # [id number]
--- NOTE | 2021-03-13 17:51 | Diagnostic Imaging Report ---
EXAMINATION: Chest 1 view. HISTORY: Port placement. COMPARISON: None available. FINDINGS: The lungs are clear without edema or pneumonia. No pleural effusion or pneumothorax. Heart size is normal. Right port catheter tip terminates in the superior vena cava. IMPRESSION: Clear lungs. Dictated by: Dictated on workstation # [id number]
[2021-03-13] MEDS: ONDANSETRON 4 MG/2 ML (SDV) Z0FRAN IV PRN (20:02)
[2021-03-13] MEDS: ALPRAZolam 0.25 MG (XANAX) TAB PO PRN (20:19)
[2021-03-14 03:03] VITALS: BP 126/78
[2021-03-14] MEDS: NS IV 1000 ML 1,000 ML IV SCH (04:46)
[2021-03-14] MEDS: HYDROmorphone 2 MG/ML VIAL (DILAUDID) IV PRN ×2 (04:56→19:56)
--- NOTE | 2021-03-14 07:11 | Progress Note ---
Subjective Date Seen by a Provider: Mar 14, 2021 Time Seen by a Provider: 06:40 Subjective/Events-last exam Patient reports still having pain in the back and right hip. She has been trying to eat but does get nauseated at times. She does have a when necessary nausea medication Objective Exam Vital Signs Date Time Temp Pulse Resp B/P (MAP) Pulse Ox O2 Delivery O2 Flow Rate FiO2 03/14/21 03:03 36.0 88 16 126/78 (94) 98 Room Air 03/13/21 23:12 36.2 86 20 115/66 (82) 97 Room Air 03/13/21 21:05 Room Air 03/13/21 20:16 36.8 119 20 129/64 (85) 98 Room Air 03/13/21 20:12 20 03/13/21 18:19 37.4 113 18 132/78 (96) 97 Room Air 03/13/21 18:05 36.4 16 135/76 (95) 100 Room Air 03/13/21 18:05 Room Air 03/13/21 18:00 Room Air 03/13/21 18:00 36.4 16 135/76 (95) 100 Room Air 03/13/21 17:50 16 143/83 (103) 100 Room Air 03/13/21 17:45 Room Air 03/13/21 17:40 14 122/82 (95) 100 Room Air 03/13/21 17:33 36.6 22 119/95 (103) 100 Room Air 03/13/21 17:33 Room Air 03/13/21 15:47 98 Room Air 03/13/21 15:45 36.0 67 18 143/67 (92) 98 Room Air 03/13/21 12:00 36.2 58 20 143/63 (89) 99 03/13/21 08:10 18 03/13/21 08:10 Room Air 03/13/21 08:00 99 Room Air 03/13/21 07:59 35.4 67 20 120/66 (84) 98 I & O 03/14/21 07:00 Intake Total 1110 ml Output Total 1050 ml Balance 60 ml Capillary Refill : Less Than 3 Seconds General Appearance: Mild Distress Respiratory: Lungs Clear Cardiovascular: Regular Rate, Rhythm Assessment/Plan Assessment/Plan Assess & Plan/Chief Complaint 1. Adenocarcinoma breast primary with metastasis to right hip and T9 -Admitted now to swing bed 03/14 -Receiving daily radiation therapy and tamoxifen 2. Intractable pain due to the metastasis -Dilaudid CONSUMER RELATIONS SPECIALIST pump 03/14 -CONSUMER RELATIONS SPECIALIST pump otherwise no change 3. Nutritional status -check CMP as well as check her weight weekly. GLADIS GRIGGS MD Mar 14, 2021 07:11
[2021-03-14 07:53] VITALS: BP 99/61
--- NOTE | 2021-03-14 08:27 | Occupational Ther Daily Note ---
OT Current Status-Daily Note Subjective Pt. alert in bed upon entry. Pt. agrees to therapy. Mental Status/Objective Patient Orientation: Person, Place, Time, Situation Attachments: Johnson Catheter, IV ADL-Treatment Pt request to complete oral care sitting EOB. After assist gathering supplies, pt. able to brush teeth by self after set up. Min A for supine to EOB. Pt. Min A for SPT to w/c. Pt taken to complete radiation. All needs met prior to leaving room. Therapy Code Descriptions/Definitions Functional [place] Measure: 0=Not Assessed/NA 4=Minimal Assistance 1=Total Assistance 5=Supervision or Setup 2=Maximal Assistance 6=Modified [place] 3=Moderate Assistance 7=Complete IndependenceSCALE: Activities may be completed with or without assistive devices. 4-Rjbbdqcgnd-wwqifba completes the activity by him/herself with no assistance from a helper. 5-Set-up or Clean-up Assistance-helper sets up or cleans up; patient completes activity. [place] assists only prior to or following the activity. 4-Supervision or Touching Assistance-helper provides verbal cues and/or touching/steadying and/or contact guard assistance as patient completes activity. Assistance may be provided throughout the activity or intermittently. 3-Partial/Moderate Assistance-helper does LESS THAN HALF the effort. [place] li fts, holds or supports trunk or limbs, but provides less than half the effort. 2-Substantial/Maximal Assistance-helper does MORE THAN HALF the effort. [place] lifts or holds trunk or limbs and provides more than half the effort. 7-Epwwnhlhv-hrvayu does ALL the effort. Patient does none of the effort to complete the activity. Or, the assistance of 2 or more helpers is required for the patient to complete the activity. If activity was not attempted, code reason: 7-Patient Refused. 9-Not Applicable-not attempted and the patient did not perform the activity before the current illness, exacerbation or injury. 10-Not Attempted due to Environmental Limitations-(lack of equipment, weather restraints, etc.). 88-Not Attempted due to Medical Conditions or Safety Concerns. Oral Hygiene (QC): 5 OT Fdc Goals Fdc Goals Time Frame: Apr 05, 2021 Eating (QC): 6 Oral Hygiene (QC): 5 Toileting Hygiene (QC): 3 Shower/Bathe Self (QC): 3 Upper Body Dressing (QC): 5 Lower Body Dressing (QC): 3 On/Off Footwear (QC): 3 Additional Goals: 1-Demonstrate ADL Tasks, 2-Verbalize Understanding, 3- ImproveStrength/Radha 1=Demonstrate adherence to instructed precautions during ADL tasks. 2=Patient will verbalize/demonstrate understanding of assistive devices/modifications for ADL. 3=Patient will improve strength/tolerance for activity to enable patient to perform ADL's. OT Education/Plan Problem List/Assessment Assessment: Decreased Activ Tolerance, Impaired Self-Care Skills Pt would benefit from skilled OT services in order to increase safety and independence with ADLs, education on AE for LE dressing in order to minimize pain, and activity modification education. Discharge Recommendations Plan/Recommendations: Continue POC Treatment Plan/Plan of Care Patient would benefit from OT for education, treatment and training to promote independence in ADL's, mobility, safety and/or upper extremity function for ADL's. Plan of Care: ADL Retraining, Functional Mobility, UE Funct Exercise/Act Treatment Duration: Apr 05, 2021 Frequency: 5 times per week Estimated Hrs Per Day: .25 hour per day Rehab Potential: Guarded Time/GCodes Start Time: 08:00 Stop Time: 08:20 Total Time Billed (hr/min): 20 Billed Treatment Time 1 visit- ADL 1 (20 min) GERARDO DAMON Mar 14, 2021 08:27
[2021-03-14] MEDS: DOCUSATE SODIUM 100 MG (COLACE) CAP PO SCH ×2 (08:58→19:52)
[2021-03-14] MEDS: PANTOPRAZOLE 40 MG (PROTONIX) TAB PO SCH (08:58)
[2021-03-14] MEDS: FAMOTIDINE 20 MG (PEPCID) TABLET PO SCH (08:58)
[2021-03-14] MEDS: ASPIRIN E.C. 81 MG (ECOTRIN) TAB PO SCH (08:58)
[2021-03-14] MEDS: TAMOXIFEN 10 MG (NOLVADEX) TAB PO SCH (08:59)
[2021-03-14 09:22] LABS: BASOPHILS % (AUTO) 0 % (0-10); EOSINOPHILS % (AUTO) 0 % (0-10); HEMATOCRIT 39 % (35-52); HEMOGLOBIN 12.7 g/dL (11.5-16.0); LYMPHOCYTES # (AUTO) 0.5 10^3/uL (1.0-4.0); LYMPHOCYTES % (AUTO) 4 % (12-44); MEAN CORPUSCULAR HEMOGLOBIN 32 pg (25-34); MEAN CORPUSCULAR HGB CONC 33 g/dL (32-36); MEAN CORPUSCULAR VOLUME 96 fL (80-99); MONOCYTES # (AUTO) 0.6 10^3/uL (0.0-1.0); MONOCYTES % (AUTO) 5 % (0-12); NEUTROPHILS # (AUTO) 10.5 10^3/uL (1.8-7.8); NEUTROPHILS % (AUTO) 90 % (42-75); PLATELET COUNT 429 10^3/uL (130-400); WHITE BLOOD COUNT 11.7 10^3/uL (4.3-11.0)
[2021-03-14 09:38] LABS: ALBUMIN 3.3 GM/DL (3.2-4.5); BILIRUBIN,TOTAL 0.8 MG/DL (0.1-1.0); CALCIUM 9.3 MG/DL (8.5-10.1); CREATININE SERUM 0.6 MG/DL (0.60-1.30); POTASSIUM 4.1 MMOL/L (3.6-5.0)
[2021-03-14] MEDS: polyethylene glycoL POWDER 17 GM (MIRALAX) PACK PO SCH (10:05)
--- NOTE | 2021-03-14 10:42 | Physical Therapy Daily Note ---
PT Daily Note-Current Subjective Patient has 9/10 back pain and utilized CONTRACT AGENT. Pain Numeric Pain Scale: 9 Location: Medial Location Body Site: Back Pain Description: Acute Mental Status Patient Orientation: Normal For Age Attachments: Central Line, Johnson Catheter Transfers SCALE: Activities may be completed with or without assistive devices. 2-Siicztqqal-fiximvv completes the activity by him/herself with no assistance from a helper. 5-Set-up or Clean-up Assistance-helper sets up or cleans up; patient completes activity. [place] assists only prior to or following the activity. 4-Supervision or Touching Assistance-helper provides verbal cues and/or touching/steadying and/or contact guard assistance as patient completes activity. Assistance may be provided throughout the activity or intermittently. 3-Partial/Moderate Assistance-helper does LESS THAN HALF the effort. [place] lifts, holds or supports trunk or limbs, but provides less than half the effort. 2-Substantial/Maximal Assistance-helper does MORE THAN HALF the effort. [place] lifts or holds trunk or limbs and provides more than half the effort. 6-Jqdyghyvl-ggrztb does ALL the effort. Patient does none of the effort to complete the activity. Or, the assistance of 2 or more helpers is required for the patient to complete the activity. If activity was not attempted, code reason: 7-Patient Refused. 9-Not Applicable-not attempted and the patient did not perform the activity before the current illness, exacerbation or injury. 10-Not Attempted due to Environmental Limitations-(lack of equipment, weather restraints, etc.). 88-Not Attempted due to Medical Conditions or Safety Concerns. Sit to Stand (QC): 4 (CGA for safety) Weight Bearing Right Lower Extremity: Right Weight Bearing/Tolerated Exercises Seated Therapy Exercises: Ankle pumps, Long arc quads, Hip flexion Seated Reps: 15 Standing: Heel/toe raises, Marching (right LE only) Standing Reps: 15 Assessment Patient tolerated treatment and remains up in w/c. Continue to increase activity as patient tolerates. Patient limits patient at this time. PT Usp Goals Usp Goals PT Usp Goals Time Frame: Apr 06, 2021 Roll Left & Right (QC): 4 Sit to Lying (QC): 4 Lying-Sitting on Side/Bed(QC): 4 Sit to Stand (QC): 4 Chair/Etf-xw-Uizih Xfer(QC): 4 Toilet Transfer (QC): 4 Car Transfer (QC): 4 Does the Patient Walk: No and Walking Goal IS indicated Walk 10 feet (QC): 3 Walk 50ft with 2 Turns (QC): 88 Walk 150 ft (QC): 88 Walking 10ft on Uneven Surface: 88 1 Step (curb) (QC): 9 4 Steps (QC): 9 12 Steps (QC): 9 Picking up an Object (QC): 88 Wheel 50 feet with 2 turns (QC: 88 Type: N/A Wheel 150 feet: 88 Type: N/A PT Plan Treatment/Plan Treatment Plan: Continue Plan of Care Treatment Plan: Bed Mobility, Education, Functional Activity Radha, Functional Strength, Gait, Safety, Therapeutic Exercise, Transfers Treatment Duration: Apr 06, 2021 Frequency: 6 times per week Estimated Hrs Per Day: .25 hour per day Patient and/or Family Agrees t: Yes Time/GCodes Time In: 930 Time Out: 945 Total Billed Treatment Time: 15 Total Billed Treatment 1 visit EX 15 min JAISON QUINN PT Mar 14, 2021 10:42
--- NOTE | 2021-03-14 12:45 | Progress Note ---
Progress Note Assessment/Plan Date Seen by Provider: Mar 14, 2021 Time Seen by Provider: 10:00 Events since last exam Pt is doing well. In PT and OT Pain is under reasonable control with dilaudid MEDICAL CLERICAL ASSISTANT Port placed yesterday. No new issues. Tumor marker CA15.3 elevated at 89. Assessment/Plan Assessment/Plan A/P: 1. 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 T9 spine lesion risk of cord compression. Right acetabulum lesion risk of pathological fracture. 2. Intractable pain from the bone mets. Has been Oxycodone and Fentanyl patch at home and still rate pain 10/10. She needed 8mg morphine IV at the clinic in order to calm down her pain. She is doing much better with MEDICAL CLERICAL ASSISTANT dilaudid. 3. Dizziness when she turns her head. Resolved. Plan: 1. Radiation to radiate T9 and right hip lesion. Plan 35 radiation treatments. She is at 5/35. Will start to taper steroid next Thursday, Decadron 4mg q8hrs to q12hrs. 2. Continue Dilaudid MEDICAL CLERICAL ASSISTANT 0.3mg/hr CI, 0.2mg bolus q 15mins. no cap. 4. Pepcid 20mg bid PO while on steroid. Protonix added by PCP Dr Martin yesterday due to stomach upset 5. Continue oral tamoxifen 20mg daily and will start Faslodex soon. 6. Constipation prophylaxis. 7. Physical and occupational therapy Vitals Last set of Vitals Signs Vital Signs Date Time Temp Pulse Resp B/P (MAP) Pulse Ox O2 Delivery O2 Flow Rate FiO2 03/14/21 08:00 Room Air 03/14/21 08:00 18 03/14/21 07:53 34.7 68 99/61 (74) 97 I&O I&O Intake and Output 03/13/21 23:59 Intake Total 360 ml Output Total 1550 ml Balance -1190 ml Intake Oral 360 ml Output Urine Total 1550 ml Labs Laboratory Tests 03/14/21 09:00: White Blood Count 11.7H, Red Blood Count 4.02, Hemoglobin 12.7, Hematocrit 39, Mean Corpuscular Volume 96, Mean Corpuscular Hemoglobin 32, Mean Corpuscular Hemoglobin Concent 33, Red Cell Distribution Width 14.0, Platelet Count 429H, Mean Platelet Volume 10.0, Immature Granulocyte % (Auto) 1, Neutrophils (%) ( Auto) 90H, Lymphocytes (%) (Auto) 4L, Monocytes (%) (Auto) 5, Eosinophils (%) (Auto) 0, Basophils (%) (Auto) 0, Neutrophils # (Auto) 10.5H, Lymphocytes # (Auto) 0.5L, Monocytes # (Auto) 0.6, Eosinophils # (Auto) 0.0, Basophils # (Auto) 0.0, Immature Granulocyte # (Auto) 0.2H, Sodium Level 138, Potassium Level 4.1, Chloride Level 101, Carbon Dioxide Level 26, Anion Gap 11, Blood Urea Nitrogen 18, Creatinine 0.60, Estimat Glomerular Filtration Rate 100, BUN/Creatinine Ratio 30, Glucose Level 108H, Calcium Level 9.3, Corrected Calcium 9.9, Total Bilirubin 0.8, Aspartate Amino Transf (AST/SGOT) 29, Alanine Aminotransferase (ALT/SGPT) 77H, Alkaline Phosphatase 118, Total Protein 6.0L, Albumin 3.3 Microbiology 03/13/21 MRSA Screen - Final, Complete MRSA not isolated JEZ LAWLER MD Mar 14, 2021 12:45
[2021-03-14] MEDS: ONDANSETRON 4 MG/2 ML (SDV) Z0FRAN IV PRN (13:11)
[2021-03-14] MEDS: MILK OF MAGNESIA 400 MG/5 ML 30 ML UDC PO PRN ×2 (13:11→18:52)
--- NOTE | 2021-03-14 15:26 | Anesthesia-General Post-Op ---
MAC Patient Condition Mental Status/LOC: Same as Preop Cardiovascular: Satisfactory Nausea/Vomiting: Absent Respiratory: Satisfactory Pain: Controlled Complications: Absent Post Op Complications Complications None Follow Up Care/Instructions Patient Instructions None needed. Anesthesiology Discharge Order Discharge Order Patient is doing well, no complaints, stable vital signs, no apparent adverse anesthesia problems. No complications reported per nursing. SAYDA DEAL CRNA Mar 14, 2021 15:26
[2021-03-14 17:11] VITALS: BP 132/85
[2021-03-14] MEDS: BISACODYL 10 MG SUPP (DULCOLAX) PR PRN (21:23)
[2021-03-14] MEDS: ALPRAZolam 0.25 MG (XANAX) TAB PO PRN (21:33)
[2021-03-15] MEDS: HYDROmorphone 2 MG/ML VIAL (DILAUDID) IV PRN ×4 (01:14→22:52)
[2021-03-15 04:14] VITALS: BP 109/55
--- NOTE | 2021-03-15 07:48 | Progress Note ---
Subjective Date Seen by a Provider: Mar 15, 2021 Time Seen by a Provider: 06:55 Subjective/Events-last exam she admits to feeling a little bit better. She is able to move her right hip in some directions without significant pain. Objective Exam Vital Signs Date Time Temp Pulse Resp B/P (MAP) Pulse Ox O2 Delivery O2 Flow Rate FiO2 03/15/21 07:05 94 Room Air 03/15/21 04:14 36.3 64 20 109/55 (73) 97 Room Air 03/15/21 02:41 92 Room Air 03/15/21 00:47 65 16 94 Room Air 03/14/21 21:51 96 Room Air 03/14/21 21:19 18 03/14/21 20:04 Room Air 03/14/21 18:48 Room Air 03/14/21 17:11 35.6 79 20 132/85 (101) 97 Room Air 03/14/21 08:00 Room Air 03/14/21 08:00 18 03/14/21 07:53 34.7 68 18 99/61 (74) 97 I & O 03/15/21 07:00 Intake Total 1190 ml Output Total 1250 ml Balance -60 ml Capillary Refill : Less Than 3 Seconds General Appearance: No Apparent Distress Cardiovascular: Regular Rate, Rhythm Results Lab Laboratory Tests 03/14/21 09:00: White Blood Count 11.7H, Red Blood Count 4.02, Hemoglobin 12.7, Hematocrit 39, Mean Corpuscular Volume 96, Mean Corpuscular Hemoglobin 32, Mean Corpuscular Hemoglobin Concent 33, Red Cell Distribution Width 14.0, Platelet Count 429H, Me an Platelet Volume 10.0, Immature Granulocyte % (Auto) 1, Neutrophils (%) (Auto) 90H, Lymphocytes (%) (Auto) 4L, Monocytes (%) (Auto) 5, Eosinophils (%) (Auto) 0, Basophils (%) (Auto) 0, Neutrophils # (Auto) 10.5H, Lymphocytes # (Auto) 0.5L , Monocytes # (Auto) 0.6, Eosinophils # (Auto) 0.0, Basophils # (Auto) 0.0, Immature Granulocyte # (Auto) 0.2H, Sodium Level 138, Potassium Level 4.1, Chloride Level 101, Carbon Dioxide Level 26, Anion Gap 11, Blood Urea Nitrogen 18, Creatinine 0.60, Estimat Glomerular Filtration Rate 100, BUN/Creatinine Ratio 30, Glucose Level 108H, Calcium Level 9.3, Corrected Calcium 9.9, Total Bilirubin 0.8, Aspartate Amino Transf (AST/SGOT) 29, Alanine Aminotransferase (ALT/SGPT) 77H, Alkaline Phosphatase 118, Total Protein 6.0L, Albumin 3.3 Microbiology 03/13/21 MRSA Screen - Final, Complete MRSA not isolated Assessment/Plan Assessment/Plan Assess & Plan/Chief Complaint 1. 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 Intractable pain due to the metastasis -Dilaudid CORONER TECHNICIAN pump 03/14 -CORONER TECHNICIAN pump otherwise no change 03/15 -CORONER TECHNICIAN pump still available 3. Nutritional status -check CMP as well as check her weight weekly. 03/15 -protein and albumin stable -Her weight is pending GLADIS GRIGGS MD Mar 15, 2021 07:48
[2021-03-15] MEDS: ONDANSETRON 4 MG/2 ML (SDV) Z0FRAN IV PRN (08:16)
[2021-03-15] MEDS: FAMOTIDINE 20 MG (PEPCID) TABLET PO SCH (08:17)
[2021-03-15] MEDS: DOCUSATE SODIUM 100 MG (COLACE) CAP PO SCH ×2 (08:17→20:38)
[2021-03-15] MEDS: PANTOPRAZOLE 40 MG (PROTONIX) TAB PO SCH (08:17)
[2021-03-15] MEDS: ASPIRIN E.C. 81 MG (ECOTRIN) TAB PO SCH (08:17)
[2021-03-15] MEDS: polyethylene glycoL POWDER 17 GM (MIRALAX) PACK PO SCH (08:18)
[2021-03-15 09:00] VITALS: BP 137/64
[2021-03-15] MEDS: TAMOXIFEN 10 MG (NOLVADEX) TAB PO SCH (09:31)
--- NOTE | 2021-03-15 11:31 | Physical Therapy Daily Note ---
PT Daily Note-Current Subjective Patient agrees to exercises. Currently sitting in w/c and wants to remain up. Pain Numeric Pain Scale: 5-Moderate Pain Location: Medial Location Body Site: Back Comment: continuous Mental Status Patient Orientation: Normal For Age Attachments: Central Line, Johnson Catheter BUSINESS SERVICES INTERN Transfers SCALE: Activities may be completed with or without assistive devices. 2-Ftqewwsjyn-hiastjl completes the activity by him/herself with no assistance from a helper. 5-Set-up or Clean-up Assistance-helper sets up or cleans up; patient completes activity. [place] assists only prior to or following the activity. 4-Supervision or Touching Assistance-helper provides verbal cues and/or touching/steadying and/or contact guard assistance as patient completes activity. Assistance may be provided throughout the activity or intermittently. 3-Partial/Moderate Assistance-helper does LESS THAN HALF the effort. [place] lifts, holds or supports trunk or limbs, but provides less than half the effort. 2-Substantial/Maximal Assistance-helper does MORE THAN HALF the effort. [place] lifts or holds trunk or limbs and provides more than half the effort. 2-Covvnskig-fpvvaw does ALL the effort. Patient does none of the effort to complete the activity. Or, the assistance of 2 or more helpers is required for the patient to complete the activity. If activity was not attempted, code reason: 7-Patient Refused. 9-Not Applicable-not attempted and the patient did not perform the activity before the current illness, exacerbation or injury. 10-Not Attempted due to Environmental Limitations-(lack of equipment, weather restraints, etc.). 88-Not Attempted due to Medical Conditions or Safety Concerns. Sit to Stand (QC): 4 Weight Bearing Right Lower Extremity: Right Weight Bearing/Tolerated Exercises Seated Therapy Exercises: Ankle pumps, Long arc quads, Hip flexion Seated Reps: 15 Standing: Heel/toe raises, Marching (15), Weight shifts Standing Reps: 15 Assessment Patient requires time between exercises due to increase in back and right hip pain. Continue to address strengthening and mobility as tolerated by patient. PT Biomass Plant Technician Goals Intermediate Goals PT Biomass Plant Technician Goals Time Frame: Apr 06, 2021 Roll Left & Right (QC): 4 Sit to Lying (QC): 4 Lying-Sitting on Side/Bed(QC): 4 Sit to Stand (QC): 4 Chair/Nny-yq-Tgjwc Xfer(QC): 4 Toilet Transfer (QC): 4 Car Transfer (QC): 4 Does the Patient Walk: No and Walking Goal IS indicated Walk 10 feet (QC): 3 Walk 50ft with 2 Turns (QC): 88 Walk 150 ft (QC): 88 Walking 10ft on Uneven Surface: 88 1 Step (curb) (QC): 9 4 Steps (QC): 9 12 Steps (QC): 9 Picking up an Object (QC): 88 Wheel 50 feet with 2 turns (QC: 88 Type: N/A Wheel 150 feet: 88 Type: N/A PT Plan Treatment/Plan Treatment Plan: Continue Plan of Care Treatment Plan: Bed Mobility, Education, Functional Activity Radha, Functional Strength, Gait, Safety, Therapeutic Exercise, Transfers Treatment Duration: Apr 06, 2021 Frequency: 6 times per week Estimated Hrs Per Day: .25 hour per day Patient and/or Family Agrees t: Yes Time/GCodes Time In: 1025 Time Out: 1040 Total Billed Treatment Time: 15 Total Billed Treatment 1 visit EX 15 min JAISON QUINN PT Mar 15, 2021 11:31
[2021-03-15] MEDS: NS IV 1000 ML 1,000 ML IV SCH (11:36)
--- NOTE | 2021-03-15 11:58 | Occupational Ther Daily Note ---
OT Current Status-Daily Note Subjective Pt. alert in w/c upon entry. Pt. pleasant, agreeable to therapy. Mental Status/Objective Patient Orientation: Person, Place, Time, Situation Attachments: Johnson Catheter, IV ADL-Treatment Pt. agreeable to shower. Pt. supervision to stand from w/c SPT to shower chair with cut out. Pt. transported to shower using shower chair with cut out. Due to low activity tolerance [place]OVER performed shower cleansing and drying for Pt, future sessions will work on increasing endurance. Pt. demonstrates increased tolerance of sitting up with activity during duration of shower then quickly fatigues with pain at end. Pt. transported from shower once completed using shower chair with cut out. Pt. required assist to place socks. Pt. Min A. to stand from show er chair with cut out and transfer to w/c. Pt in w/c call light/phone in reach. All needs met in room. Therapy Code Descriptions/Definitions Functional [place] Measure: 0=Not Assessed/NA 4=Minimal Assistance 1=Total Assistance 5=Supervision or Setup 2=Maximal Assistance 6=Modified [place] 3=Moderate Assistance 7=Complete IndependenceSCALE: Activities may be completed with or without assistive devices. 8-Zukwibtldv-yizxopu completes the activity by him/herself with no assistance from a helper. 5-Set-up or Clean-up Assistance-helper sets up or cleans up; patient completes activity. [place] assists only prior to or following the activity. 4-Supervision or Touching Assistance-helper provides verbal cues and/or touching/steadying and/or contact guard assistance as patient completes activity. Assistance may be provided throughout the activity or intermittently. 3-Partial/Moderate Assistance-helper does LESS THAN HALF the effort. [place] lifts, holds or supports trunk or limbs, but provides less than half the effort. 2-Substantial/Maximal Assistance-helper does MORE THAN HALF the effort. [place] lifts or holds trunk or limbs and provides more than half the effort. 9-Ddcmtkfdf-dxsrow does ALL the effort. Patient does none of the effort to complete the activity. Or, the assistance of 2 or more helpers is required for the patient to complete the activity. If activity was not attempted, code reason: 7-Patient Refused. 9-Not Applicable-not attempted and the patient did not perform the activity before the current illness, exacerbation or injury. 10-Not Attempted due to Environmental Limitations-(lack of equipment, weather restraints, etc.). 88-Not Attempted due to Medical Conditions or Safety Concerns. Shower/Bathe Self (QC): 1 (Due to pain and fatigue) On/Off Footwear: 1 OT Fdc Goals Ob Nurse Goals Time Frame: Apr 05, 2021 Eating (QC): 6 Oral Hygiene (QC): 5 Toileting Hygiene (QC): 3 Shower/Bathe Self (QC): 3 Upper Body Dressing (QC): 5 Lower Body Dressing (QC): 3 On/Off Footwear (QC): 3 Additional Goals: 1-Demonstrate ADL Tasks, 2-Verbalize Understanding, 3- ImproveStrength/Radha 1=Demonstrate adherence to instructed precautions during ADL tasks. 2=Patient will verbalize/demonstrate understanding of assistive devices/modifications for ADL. 3=Patient will improve strength/tolerance for activity to enable patient to perform ADL's. OT Education/Plan Problem List/Assessment Assessment: Decreased Activ Tolerance, Impaired Self-Care Skills Pt would benefit from skilled OT services in order to increase safety and independence with ADLs, education on AE for LE dressing in order to minimize pain, and activity modification education. Discharge Recommendations Plan/Recommendations: Continue POC Treatment Plan/Plan of Care Patient would benefit from OT for education, treatment and training to promote independence in ADL's, mobility, safety and/or upper extremity function for ADL's. Plan of Care: ADL Retraining, Functional Mobility, UE Funct Exercise/Act Treatment Duration: Apr 05, 2021 Frequency: 5 times per week Estimated Hrs Per Day: .25 hour per day Rehab Potential: Guarded Time/GCodes Start Time: 09:30 Stop Time: 10:00 Total Time Billed (hr/min): 30 Billed Treatment Time 1 visit- ADL 2 (30 min) GERARDO DAMON Mar 15, 2021 11:58
[2021-03-15 12:00] VITALS: BP 116/69
[2021-03-15 15:32] VITALS: BP 110/62
[2021-03-15] MEDS: HYDROmorphone PF INJECTION 40 MG in NS (IVPB) 96 ML IV SCH (19:51)
[2021-03-15 20:00] VITALS: BP 128/67
[2021-03-16 00:20] VITALS: BP 110/70
[2021-03-16] MEDS: ONDANSETRON 4 MG/2 ML (SDV) Z0FRAN IV PRN ×2 (03:54→22:46)
[2021-03-16 04:23] VITALS: BP 118/60
[2021-03-16 08:00] VITALS: BP 125/75
[2021-03-16] MEDS: FAMOTIDINE 20 MG (PEPCID) TABLET PO SCH (08:01)
[2021-03-16] MEDS: ASPIRIN E.C. 81 MG (ECOTRIN) TAB PO SCH (08:01)
[2021-03-16] MEDS: polyethylene glycoL POWDER 17 GM (MIRALAX) PACK PO SCH (08:01)
[2021-03-16] MEDS: DOCUSATE SODIUM 100 MG (COLACE) CAP PO SCH ×2 (08:01→21:23)
[2021-03-16] MEDS: PANTOPRAZOLE 40 MG (PROTONIX) TAB PO SCH (08:01)
[2021-03-16] MEDS: TAMOXIFEN 10 MG (NOLVADEX) TAB PO SCH (08:08)
--- NOTE | 2021-03-16 10:59 | Physical Therapy Daily Note ---
PT Daily Note-Current Subjective Pt agreeable to ther ex. Pt rates pain 4-5/10 (R) hip. Pt able to participate (L)LE ther ex. Transfers SCALE: Activities may be completed with or without assistive devices. 8-Pipcqjuswe-esjzlcc completes the activity by him/herself with no assistance from a helper. 5-Set-up or Clean-up Assistance-helper sets up or cleans up; patient completes activity. [place] assists only prior to or following the activity. 4-Supervision or Touching Assistance-helper provides verbal cues and/or touching/steadying and/or contact guard assistance as patient completes activity. Assistance may be provided throughout the activity or intermittently. 3-Partial/Moderate Assistance-helper does LESS THAN HALF the effort. [place] lifts, holds or supports trunk or limbs, but provides less than half the effort. 2-Substantial/Maximal Assistance-helper does MORE THAN HALF the effort. [place] lifts or holds trunk or limbs and provides more than half the effort. 7-Juswttsmv-yimngs does ALL the effort. Patient does none of the effort to complete the activity. Or, the assistance of 2 or more helpers is required for the patient to complete the activity. If activity was not attempted, code reason: 7-Patient Refused. 9-Not Applicable-not attempted and the patient did not perform the activity before the current illness, exacerbation or injury. 10-Not Attempted due to Environmental Limitations-(lack of equipment, weather restraints, etc.). 88-Not Attempted due to Medical Conditions or Safety Concerns. Weight Bearing Right Lower Extremity: Right Weight Bearing/Tolerated Exercises Supine Ex: Ankle pumps, Quad Set, Glut sets, Heel Slides, Short Arc Quads, Straight leg raise, Hip abd/add Supine Reps: 20 Assessment Current Status: Fair Progress (L) LE ther ex tolerated well. Pt able to perform isometrics and AP on (R) LE. Pt resting with call light and all needs met post therapy. PT Care Home Goals Cogeneration Technician Goals PT Cogeneration Technician Goals Time Frame: Apr 06, 2021 Roll Left & Right (QC): 4 Sit to Lying (QC): 4 Lying-Sitting on Side/Bed(QC): 4 Sit to Stand (QC): 4 Chair/Igl-ym-Stkoy Xfer(QC): 4 Toilet Transfer (QC): 4 Car Transfer (QC): 4 Does the Patient Walk: No and Walking Goal IS indicated Walk 10 feet (QC): 3 Walk 50ft with 2 Turns (QC): 88 Walk 150 ft (QC): 88 Walking 10ft on Uneven Surface: 88 1 Step (curb) (QC): 9 4 Steps (QC): 9 12 Steps (QC): 9 Picking up an Object (QC): 88 Wheel 50 feet with 2 turns (QC: 88 Type: N/A Wheel 150 feet: 88 Type: N/A PT Plan Treatment/Plan Treatment Plan: Continue Plan of Care Treatment Plan: Bed Mobility, Education, Functional Activity Radha, Functional Strength, Gait, Safety, Therapeutic Exercise, Transfers Treatment Duration: Apr 06, 2021 Frequency: 6 times per week Estimated Hrs Per Day: .25 hour per day Patient and/or Family Agrees t: Yes Time/GCodes Time In: 1031 Time Out: 1046 Total Billed Treatment Time: 15 Total Billed Treatment 1, ther ex 15' ALEJO RITTER CPTA Mar 16, 2021 10:59
[2021-03-16 11:50] VITALS: BP 124/82
[2021-03-16] MEDS: NS IV 1000 ML 1,000 ML IV SCH (13:26)
[2021-03-16] MEDS: HYDROmorphone 2 MG/ML VIAL (DILAUDID) IV PRN ×3 (14:09→22:46)
[2021-03-16 16:00] VITALS: BP 130/68
[2021-03-16 19:47] VITALS: BP 118/74
[2021-03-17 00:48] VITALS: BP 109/65
[2021-03-17] MEDS: HYDROmorphone 2 MG/ML VIAL (DILAUDID) IV PRN ×2 (00:59→21:53)
[2021-03-17 04:00] VITALS: BP 113/62
[2021-03-17 07:50] VITALS: BP 124/69
[2021-03-17] MEDS: DOCUSATE SODIUM 100 MG (COLACE) CAP PO SCH ×2 (08:45→21:54)
[2021-03-17] MEDS: FAMOTIDINE 20 MG (PEPCID) TABLET PO SCH (08:45)
[2021-03-17] MEDS: PANTOPRAZOLE 40 MG (PROTONIX) TAB PO SCH ×2 (08:45→21:54)
[2021-03-17] MEDS: polyethylene glycoL POWDER 17 GM (MIRALAX) PACK PO SCH (08:45)
[2021-03-17] MEDS: ASPIRIN E.C. 81 MG (ECOTRIN) TAB PO SCH (08:45)
[2021-03-17] MEDS: TAMOXIFEN 10 MG (NOLVADEX) TAB PO SCH (08:46)
[2021-03-17 11:55] VITALS: BP 119/75
[2021-03-17] MEDS: NS IV 1000 ML 1,000 ML IV SCH (14:28)
[2021-03-17 16:04] VITALS: BP 126/79
[2021-03-17 19:12] VITALS: BP 128/74
[2021-03-18] VITALS (7 sets, daily range): BP systolic 121–146; BP diastolic 61–92
--- NOTE | 2021-03-18 07:33 | Progress Note ---
Subjective Date Seen by a Provider: Mar 18, 2021 Time Seen by a Provider: 06:25 Subjective/Events-last exam She appears to be resting comfortable. She is using the COLLECTION SPECIALIST pump on schedule. Indigestion yesterday. Objective Exam Vital Signs Date Time Temp Pulse Resp B/P (MAP) Pulse Ox O2 Delivery O2 Flow Rate FiO2 03/18/21 04:15 36.1 72 18 134/61 (85) 95 Room Air 03/18/21 00:10 36.4 68 18 128/74 (92) 98 Room Air 03/17/21 21:00 Room Air 03/17/21 21:00 20 03/17/21 19:12 36.4 68 18 128/74 (92) 98 Room Air 03/17/21 16:04 36.8 61 18 126/79 (95) 99 Room Air 03/17/21 11:55 36.6 70 18 119/75 (90) 98 Room Air 03/17/21 09:00 18 03/17/21 08:00 98 Room Air 03/17/21 07:50 36.6 67 18 124/69 (87) 98 Room Air I & O 03/18/21 07:00 Intake Total 860 ml Output Total 1425 ml Balance -565 ml Capillary Refill : Less Than 3 Seconds General Appearance: No Apparent Distress Respiratory: Lungs Clear Cardiovascular: Regular Rate, Rhythm Gastrointestinal: soft; No distended, No guarding, No rebound Results Lab Microbiology 03/13/21 MRSA Screen - Final, Complete MRSA not isolated Assessment/Plan Assessment/Plan Assess & Plan/Chief Complaint 1. 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 Intractable pain due to the metastasis -Dilaudid COLLECTION SPECIALIST pump 03/14 -COLLECTION SPECIALIST pump otherwise no change 03/15 -COLLECTION SPECIALIST pump still available 03/18 -still requiring COLLECTION SPECIALIST pump as scheduled 3. Nutritional status -check CMP as well as check her weight weekly. 03/15 -protein and albumin stable -Her weight is pending 4. Dyspepsia -on pepcid and protonix 5. HTN-history of -she is currently stable with bp GLADIS GRIGGS MD Mar 18, 2021 07:33
[2021-03-18] MEDS: ASPIRIN E.C. 81 MG (ECOTRIN) TAB PO SCH (09:40)
[2021-03-18] MEDS: FAMOTIDINE 20 MG (PEPCID) TABLET PO SCH (09:40)
[2021-03-18] MEDS: PANTOPRAZOLE 40 MG (PROTONIX) TAB PO SCH ×2 (09:41→20:31)
[2021-03-18] MEDS: TAMOXIFEN 10 MG (NOLVADEX) TAB PO SCH (09:41)
[2021-03-18] MEDS: DOCUSATE SODIUM 100 MG (COLACE) CAP PO SCH ×2 (09:41→20:31)
[2021-03-18] MEDS: polyethylene glycoL POWDER 17 GM (MIRALAX) PACK PO SCH (09:41)
[2021-03-18] MEDS: HYDROmorphone 2 MG/ML VIAL (DILAUDID) IV PRN ×2 (09:52→17:28)
--- NOTE | 2021-03-18 09:53 | Occupational Ther Daily Note ---
OT Current Status-Daily Note Subjective Pt alert, sitting in w/c eating breakfast. Pt agrees to therapy. Pt c/o pain, administered pain meds with DILAUDID CADD PUMP. ADL-Treatment Attempted to complete shower, unable to initiate shower due to time constraints. Nrsg aware and will give shower at later time. Pt able to complete own meal set up and use regular utensils to eat. Therapy Code Descriptions/Definitions Functional [place] Measure: 0=Not Assessed/NA 4=Minimal Assistance 1=Total Assistance 5=Supervision or Setup 2=Maximal Assistance 6=Modified [place] 3=Moderate Assistance 7=Complete IndependenceSCALE: Activities may be completed with or without assistive devices. 3-Ekjdqelnjh-vgosxyp completes the activity by him/herself with no assistance from a helper. 5-Set-up or Clean-up Assistance-helper sets up or cleans up; patient completes activity. [place] assists only prior to or following the activity. 4-Supervision or Touching Assistance-helper provides verbal cues and/or touching/steadying and/or contact guard assistance as patient completes activity. Assistance may be provided throughout the activity or intermittently. 3-Partial/Moderate Assistance-helper does LESS THAN HALF the effort. [place] lifts, holds or supports trunk or limbs, but provides less than half the effort. 2-Substantial/Maximal Assistance-helper does MORE THAN HALF the effort. [place] lifts or holds trunk or limbs and provides more than half the effort. 4-Irblpsanw-frkhld does ALL the effort. Patient does none of the effort to complete the activity. Or, the assistance of 2 or more helpers is required for the patient to complete the activity. If activity was not attempted, code reason: 7-Patient Refused. 9-Not Applicable-not attempted and the patient did not perform the activity before the current illness, exacerbation or injury. 10-Not Attempted due to Environmental Limitations-(lack of equipment, weather restraints, etc.). 88-Not Attempted due to Medical Conditions or Safety Concerns. Eating (QC): 6 Other Treatment Pt completed modified B UE strengthening exercise without resistance to increase activity tolerance and strength for daily functional tasks. Modified shldr abd/add 2 sets 5 reps, modified horizontal shldr abd/add 2 sets 5 reps. Forearm sup/pron, wrist uln/rad deviation 10 reps 2 sets. After session, pt sitting in w/c with call light/phone in reach. Nrsg in room. All needs met. OT Chcf Goals Packing Shed Supervisor Goals Time Frame: Apr 05, 2021 Eating (QC): 6 Oral Hygiene (QC): 5 Toileting Hygiene (QC): 3 Shower/Bathe Self (QC): 3 Upper Body Dressing (QC): 5 Lower Body Dressing (QC): 3 On/Off Footwear (QC): 3 Additional Goals: 1-Demonstrate ADL Tasks, 2-Verbalize Understanding, 3- ImproveStrength/Radha 1=Demonstrate adherence to instructed precautions during ADL tasks. 2=Patient will verbalize/demonstrate understanding of assistive d evices/modifications for ADL. 3=Patient will improve strength/tolerance for activity to enable patient to perform ADL's. OT Education/Plan Problem List/Assessment Assessment: Decreased Activ Tolerance, Decreased UE Strength, Impaired Self- Care Skills Pt would benefit from skilled OT services in order to increase safety and independence with ADLs, education on AE for LE dressing in order to minimize pain, and activity modification education. Discharge Recommendations Plan/Recommendations: Continue POC Treatment Plan/Plan of Care Patient would benefit from OT for education, treatment and training to promote independence in ADL's, mobility, safety and/or upper extremity function for ADL's. Plan of Care: ADL Retraining, Functional Mobility, UE Funct Exercise/Act Treatment Duration: Apr 05, 2021 Frequency: 5 times per week Estimated Hrs Per Day: .25 hour per day Rehab Potential: Guarded Time/GCodes Start Time: 09:30 Stop Time: 09:50 Total Time Billed (hr/min): 20 Billed Treatment Time 1 visit-ADL 1 (20 min) GERARDO DAMON Mar 18, 2021 09:53
--- NOTE | 2021-03-18 11:26 | Physical Therapy Daily Note ---
PT Daily Note-Current Subjective Patient agrees to PT. Pain Numeric Pain Scale: 7 Location: Medial Location Body Site: Back Pain Description: Ache, Sharp Mental Status Patient Orientation: Normal For Age Attachments: Central Line, Polar Pack Transfers SCALE: Activities may be completed with or without assistive devices. 7-Kcgrenusym-rklyudf completes the activity by him/herself with no assistance from a helper. 5-Set-up or Clean-up Assistance-helper sets up or cleans up; patient completes activity. [place] assists only prior to or following the activity. 4-Supervision or Touching Assistance-helper provides verbal cues and/or touching/steadying and/or contact guard assistance as patient completes activity. Assistance may be provided throughout the activity or intermittently. 3-Partial/Moderate Assistance-helper does LESS THAN HALF the effort. [place] lifts, holds or supports trunk or limbs, but provides less than half the effort. 2-Substantial/Maximal Assistance-helper does MORE THAN HALF the effort. [place] l ifts or holds trunk or limbs and provides more than half the effort. 8-Nasshaase-hxqmxk does ALL the effort. Patient does none of the effort to complete the activity. Or, the assistance of 2 or more helpers is required for the patient to complete the activity. If activity was not attempted, code reason: 7-Patient Refused. 9-Not Applicable-not attempted and the patient did not perform the activity before the current illness, exacerbation or injury. 10-Not Attempted due to Environmental Limitations-(lack of equipment, weather restraints, etc.). 88-Not Attempted due to Medical Conditions or Safety Concerns. Sit to Stand (QC): 3 (SPT to shower bench) Weight Bearing Right Lower Extremity: Right Weight Bearing/Tolerated Exercises Seated Therapy Exercises: Ankle pumps, Long arc quads, Hip flexion Seated Reps: 15 Standing: Sit to Stand (x 3 sets), Weight shifts Assessment Patient tolerates minimal activity and transferred to shower bench for nursing staff to assist with bathing. PT [place] Goals Fdc Goals PT Fdc Goals Time Frame: Apr 06, 2021 Roll Left & Right (QC): 4 Sit to Lying (QC): 4 Lying-Sitting on Side/Bed(QC): 4 Sit to Stand (QC): 4 Chair/Gyp-hx-Ofsjn Xfer(QC): 4 Toilet Transfer (QC): 4 Car Transfer (QC): 4 Does the Patient Walk: No and Walking Goal IS indicated Walk 10 feet (QC): 3 Walk 50ft with 2 Turns (QC): 88 Walk 150 ft (QC): 88 Walking 10ft on Uneven Surface: 88 1 Step (curb) (QC): 9 4 Steps (QC): 9 12 Steps (QC): 9 Picking up an Object (QC): 88 Wheel 50 feet with 2 turns (QC: 88 Type: N/A Wheel 150 feet: 88 Type: N/A PT Plan Treatment/Plan Treatment Plan: Continue Plan of Care Treatment Plan: Bed Mobility, Education, Functional Activity Radha, Functional Strength, Gait, Safety, Therapeutic Exercise, Transfers Treatment Duration: Apr 06, 2021 Frequency: 6 times per week Estimated Hrs Per Day: .25 hour per day Patient and/or Family Agrees t: Yes Time/GCodes Time In: 1000 Time Out: 1015 Total Billed Treatment Time: 15 Total Billed Treatment 1 visit EX 15 min JAISON QUINN PT Mar 18, 2021 11:26
[2021-03-18] MEDS: NS IV 1000 ML 1,000 ML IV SCH (14:17)
[2021-03-18] MEDS: MILK OF MAGNESIA 400 MG/5 ML 30 ML UDC PO PRN (18:10)
[2021-03-18] MEDS: BISACODYL 10 MG SUPP (DULCOLAX) PR PRN (20:58)
[2021-03-19 04:06] VITALS: BP 100/62
[2021-03-19] MEDS: FAMOTIDINE 20 MG (PEPCID) TABLET PO SCH (06:14)
[2021-03-19 07:47] VITALS: BP 117/62
[2021-03-19] MEDS: PANTOPRAZOLE 40 MG (PROTONIX) TAB PO SCH ×2 (08:44→21:27)
[2021-03-19] MEDS: ASPIRIN E.C. 81 MG (ECOTRIN) TAB PO SCH (08:44)
[2021-03-19] MEDS: DOCUSATE SODIUM 100 MG (COLACE) CAP PO SCH ×2 (08:45→21:27)
[2021-03-19] MEDS: polyethylene glycoL POWDER 17 GM (MIRALAX) PACK PO SCH (08:45)
[2021-03-19] MEDS: TAMOXIFEN 10 MG (NOLVADEX) TAB PO SCH (08:49)
--- NOTE | 2021-03-19 11:09 | Physical Therapy Daily Note ---
PT Daily Note-Current Subjective Patient agrees to PT. Pain Numeric Pain Scale: 5-Moderate Pain Location: Medial Location Body Site: Back Pain Description: Sharp Mental Status Patient Orientation: Normal For Age Attachments: Central Line, [place] Catheter AUTO GLASS WORKER Transfers SCALE: Activities may be completed with or without assistive devices. 8-Hthkelyclr-osuwotx completes the activity by him/herself with no assistance from a helper. 5-Set-up or Clean-up Assistance-helper sets up or cleans up; patient completes activity. [place] assists only prior to or following the activity. 4-Supervision or Touching Assistance-helper provides verbal cues and/or touching/steadying and/or contact guard assistance as patient completes activity. Assistance may be provided throughout the activity or intermittently. 3-Partial/Moderate Assistance-helper does LESS THAN HALF the effort. [place] lifts, holds or supports trunk or limbs, but provides less than half the effort. 2-Substantial/Maximal Assistance-helper does MORE THAN HALF the effort. [place] lifts or holds trunk or limbs and provides more than half the effort. 1-Ldopxfcmu-jewqar does ALL the effort. Patient does none of the effort to complete the activity. Or, the assistance of 2 or more helpers is required for the patient to complete the activity. If activity was not attempted, code reason: 7-Patient Refused. 9-Not Applicable-not attempted and the patient did not perform the activity before the current illness, exacerbation or injury. 10-Not Attempted due to Environmental Limitations-(lack of equipment, weather restraints, etc.). 88-Not Attempted due to Medical Conditions or Safety Concerns. Sit to Stand (QC): 4 (CGA for safety) Weight Bearing Right Lower Extremity: Right Weight Bearing/Tolerated Gait Training Does the Patient Walk?: Yes Distance: 50' Walk 10 feet (QC): 4 (CGA) Walk 50 ft with 2 Turns(QC): 4 (CGA) Gait Assistive Device: FWW slow, steady gait sequence Exercises Seated Therapy Exercises: Ankle pumps, Long arc quads, Hip flexion Seated Reps: 15 Assessment Patient requires time to complete all functional tasks due to back pain. Continue to increase activity as tolerated by patient. PT Professional Fee Coder Goals Professional Fee Coder Goals PT Halfway Goals Time Frame: Apr 06, 2021 Roll Left & Right (QC): 4 Sit to Lying (QC): 4 Lying-Sitting on Side/Bed(QC): 4 Sit to Stand (QC): 4 Chair/Zti-mn-Pyocq Xfer(QC): 4 Toilet Transfer (QC): 4 Car Transfer (QC): 4 Does the Patient Walk: No and Walking Goal IS indicated Walk 10 feet (QC): 3 Walk 50ft with 2 Turns (QC): 88 Walk 150 ft (QC): 88 Walking 10ft on Uneven Surface: 88 1 Step (curb) (QC): 9 4 Steps (QC): 9 12 Steps (QC): 9 Picking up an Object (QC): 88 Wheel 50 feet with 2 turns (QC: 88 Type: N/A Wheel 150 feet: 88 Type: N/A PT Plan Treatment/Plan Treatment Plan: Continue Plan of Care Treatment Plan: Bed Mobility, Education, Functional Activity Radha, Functional Strength, Gait, Safety, Therapeutic Exercise, Transfers Treatment Duration: Apr 06, 2021 Frequency: 6 times per week Estimated Hrs Per Day: .25 hour per day Patient and/or Family Agrees t: Yes Time/GCodes Time In: 1021 Time Out: 1036 Total Billed Treatment Time: 15 Total Billed Treatment 1 visit FA 15 min JAISON QUINN PT Mar 19, 2021 11:09
[2021-03-19 11:32] VITALS: BP 137/83
--- NOTE | 2021-03-19 11:46 | Occupational Ther Daily Note ---
OT Current Status-Daily Note Subjective Pt alert, laying in bed when therapy entered. Pt agreed to therapy. Visitors in room. No c/o pain reported. Mental Status/Objective Patient Orientation: Person, Place, Time, Situation Attachments: IV ADL-Treatment Therapy Code Descriptions/Definitions Functional [place] Measure: 0=Not Assessed/NA 4=Minimal Assistance 1=Total Assistance 5=Supervision or Setup 2=Maximal Assistance 6=Modified [place] 3=Moderate Assistance 7=Complete IndependenceSCALE: Activities may be completed with or without assistive devices. 6-Kjimeixcgi-nwancxw completes the activity by him/herself with no assistance from a helper. 5-Set-up or Clean-up Assistance-helper sets up or cleans up; patient completes activity. [place] assists only prior to or following the activity. 4-Supervision or Touching Assistance-helper provides verbal cues and/or touching/steadying and/or contact guard assistance as patient completes activity. Assistance may be provided throughout the activity or intermittently. 3-Partial/Moderate Assistance-helper does LESS THAN HALF the effort. [place] lifts, holds or supports trunk or limbs, but provides less than half the effort. 2-Substantial/Maximal Assistance-helper does MORE THAN HALF the effort. [place] lifts or holds trunk or limbs and provides more than half the effort. 9-Koewwvmbe-jtzkwr does ALL the effort. Patient does none of the effort to complete the activity. Or, the assistance of 2 or more helpers is required for the patient to complete the activity. If activity was not attempted, code reason: 7-Patient Refused. 9-Not Applicable-not attempted and the patient did not perform the activity before the current illness, exacerbation or injury. 10-Not Attempted due to Environmental Limitations-(lack of equipment, weather restraints, etc.). 88-Not Attempted due to Medical Conditions or Safety Concerns. Other Treatment Skilled instruction provided to patient on LB dressing equipment for increased independence with task. Pt was able to verbalize understanding by asking questions. Skilled instruction of B UE exercises for correct demonstration. Pt completed 1 set x10 reps of shoulder flexion and elbow flexion while laying in bed to increase B UE ROM for improved independence with ADL task. Education OT Patient Education: Use of adapted equipment Teaching Recipient: Patient, Friend Teaching Methods: Demonstration, Discussion Response to Teaching: Verbalize Understanding OT Snf Goals Cone Trucker Goals Time Frame: Apr 05, 2021 Eating (QC): 6 Oral Hygiene (QC): 5 Toileting Hygiene (QC): 3 Shower/Bathe Self (QC): 3 Upper Body Dressing (QC): 5 Lower Body Dressing (QC): 3 On/Off Footwear (QC): 3 Additional Goals: 1-Demonstrate ADL Tasks, 2-Verbalize Understanding, 3-ImproveStrength/Radha 1=Demonstrate adherence to instructed precautions during ADL tasks. 2=Patient will verbalize/demonstrate understanding of assistive devices/modifications for ADL. 3=Patient will improve strength/tolerance for activity to enable patient to perform ADL's. OT Education/Plan Problem List/Assessment Assessment: Decreased Activ Tolerance, Decreased UE Strength, Impaired Self- Care Skills, Restricted Funct UE ROM Pt would benefit from skilled OT services in order to increase safety and independence with ADLs, education on AE for LE dressing in order to minimize pain, and activity modification education. Discharge Recommendations Plan/Recommendations: Continue POC Treatment Plan/Plan of Care Patient would benefit from OT for education, treatment and training to promote independence in ADL's, mobility, safety and/or upper extremity function for ADL's. Plan of Care: ADL Retraining, Functional Mobility, UE Funct Exercise/Act Treatment Duration: Apr 05, 2021 Frequency: 5 times per week Estimated Hrs Per Day: .25 hour per day Rehab Potential: Guarded Time/GCodes Start Time: 11:30 Stop Time: 11:45 Total Time Billed (hr/min): 15 Billed Treatment Time 1 visit - EX, FA (15 mins) MALATHI LLOYD Mar 19, 2021 11:46
--- NOTE | 2021-03-19 13:57 | Progress Note ---
Progress Note Assessment/Plan Date Seen by Provider: Mar 19, 2021 Time Seen by Provider: 13:58 Events since last exam Got tired after the physical therapy. She finished 02/28 radiation treatment so far. She is on PT and OT daily. She is still on TOPOLOGY TEACHER dilaudid. Pain improved. Assessment/Plan Assessment/Plan A/P: 1. 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 T9 spine lesion risk of cord compression. Right acetabulum lesion risk of pathological fracture. 2. Intractable pain from the bone mets. Has been Oxycodone and Fentanyl patch at home and still rate pain 10/10. She needed 8mg morphine IV at the clinic in order to calm down her pain. She is doing much better with TOPOLOGY TEACHER dilaudid. 3. Dizziness when she turns her head. Resolved. Plan: 1. Radiation to radiate T9 and right hip lesion. Plan 23 radiation treatments, maybe additional boost total 35. She is at 02/28. Pain improved. Will to continue to taper steroid Decadron 4mg q12hrs to daily at the end of this week for 5 days and then off. 2. Continue Dilaudid TOPOLOGY TEACHER 0.3mg/hr CI, 0.2mg bolus q 15mins. no cap. Once we get off the steroid and then we will working on to convert the TOPOLOGY TEACHER to oral Oxycontin. 4. Pepcid 20mg bid PO while on steroid. Protonix added by PCP Dr Martin yesterday due to stomach upset 5. Continue oral tamoxifen 20mg daily and will start Faslodex once she is done with the radiation. . 6. Constipation prophylaxis. 7. Physical and occupational therapy Vitals Last set of Vitals Signs Vital Signs Date Time Temp Pulse Resp B/P (MAP) Pulse Ox O2 Delivery O2 Flow Rate FiO2 03/19/21 11:32 36.5 98 20 137/83 (101) 99 Room Air I&O I&O Intake and Output 03/19/21 00:00 Intake Total 1280 ml Output Total 1800 ml Balance -520 ml Intake Oral 1280 ml Output Urine Total 1800 ml Labs Microbiology 03/13/21 MRSA Screen - Final, Complete MRSA not isolated JEZ LAWLER MD Mar 19, 2021 13:57
[2021-03-19] MEDS: NS IV 1000 ML 1,000 ML IV SCH ×2 (14:13→21:27)
[2021-03-19 15:20] VITALS: BP 137/71
[2021-03-19] MEDS: HYDROmorphone PF INJECTION 40 MG in NS (IVPB) 96 ML IV SCH (18:34)
[2021-03-19 19:50] VITALS: BP 154/94
[2021-03-20 00:11] VITALS: BP 124/79
[2021-03-20 03:00] VITALS: BP 141/81
[2021-03-20 08:00] VITALS: BP 140/77
[2021-03-20] MEDS: ASPIRIN E.C. 81 MG (ECOTRIN) TAB PO SCH (09:19)
[2021-03-20] MEDS: PANTOPRAZOLE 40 MG (PROTONIX) TAB PO SCH ×2 (09:19→20:22)
[2021-03-20] MEDS: polyethylene glycoL POWDER 17 GM (MIRALAX) PACK PO SCH (09:19)
[2021-03-20] MEDS: DOCUSATE SODIUM 100 MG (COLACE) CAP PO SCH ×2 (09:19→20:22)
[2021-03-20] MEDS: TAMOXIFEN 10 MG (NOLVADEX) TAB PO SCH (09:19)
[2021-03-20] MEDS: FAMOTIDINE 20 MG (PEPCID) TABLET PO SCH (09:19)
--- NOTE | 2021-03-20 10:35 | Occupational Ther Daily Note ---
OT Current Status-Daily Note Subjective Pt sitting in chair when therapy entered. Pt agreed to therapy. Pain reported, pt administered pain meds with DILAUDID CADD PUMP. Mental Status/Objective Patient Orientation: Person, Place, Time, Situation Attachments: IV, Suprapubic Catheter ADL-Treatment Pt agreed to shower. Pt sit-stand from chair to FWW with supervision. SPT from FWW to / with SBA. Pt transported to shower in /. Pt, SPT from / to shower bench with SBA. Due to increase weakness and fatigue, therapist completed cleansing/drying of UB, LB, chest and abdomen. Sit-stand using grab bars with supervision, therapist cleansed buttocks. During shower, pt demonstrated improved sitting tolerance but quickly fatigued due to increase pain. Continue to work on increase endurance during shower to improve activity tolerance to complete ADLs. Pt sit-stand using grab bars with supervision. SPT to / with CGA due to increase fatigue and pain. Pt transported to room in /. Sit-stand from /, SPT to chair with CGA. After session, pt sitting in chair. Call light in reach. All needs met. Therapy Code Descriptions/Definitions Functional [place] Measure: 0=Not Assessed/NA 4=Minimal Assistance 1=Total Assistance 5=Supervision or Setup 2=Maximal Assistance 6=Modified [place] 3=Moderate Assistance 7=Complete IndependenceSCALE: Activities may be completed with or without assistive devices. 6-Qrvoqtojeh-jxfoykh completes the activity by him/herself with no assistance from a helper. 5-Set-up or Clean-up Assistance-helper sets up or cleans up; patient completes activity. [place] assists only prior to or following the activity. 4-Supervision or Touching Assistance-helper provides verbal cues and/or touching/steadying and/or contact guard assistance as patient completes activity. Assistance may be provided throughout the activity or intermittently. 3-Partial/Moderate Assistance-helper does LESS THAN HALF the effort. [place] lifts, holds or supports trunk or limbs, but provides less than half the effort. 2-Substantial/Maximal Assistance-helper does MORE THAN HALF the effort. [place] lifts or holds trunk or limbs and provides more than half the effort. 7-Ajgstnrhz-iioiba does ALL the effort. Patient does none of the effort to complete the activity. Or, the assistance of 2 or more helpers is required for the patient to complete the activity. If activity was not attempted, code reason: 7-Patient Refused. 9-Not Applicable-not attempted and the patient did not perform the activity before the current illness, exacerbation or injury. 10-Not Attempted due to Environmental Limitations-(lack of equipment, weather restraints, etc.). 88-Not Attempted due to Medical Conditions or Safety Concerns. Education OT Patient Education: Energy conservation Teaching Recipient: Patient Teaching Methods: Discussion Response to Teaching: Verbalize Understanding, Return Demonstration OT M[facility] Goals Billing Clerk Goals Time Frame: Apr 05, 2021 Eating (QC): 6 Oral Hygiene (QC): 5 Toileting Hygiene (QC): 3 Shower/Bathe Self (QC): 3 Upper Body Dressing (QC): 5 Lower Body Dressing (QC): 3 On/Off Footwear (QC): 3 Additional Goals: 1-Demonstrate ADL Tasks, 2-Verbalize Understanding, 3- ImproveStrength/Radha 1=Demonstrate adherence to instructed precautions during ADL tasks. 2=Patient will verbalize/demonstrate understanding of assistive devices/modifications for ADL. 3=Patient will improve strength/tolerance for activity to enable patient to perform ADL's. OT Education/Plan Problem List/Assessment Assessment: Decreased Activ Tolerance, Decreased UE Strength, Impaired Self- Care Skills Pt would benefit from skilled OT services in order to increase safety and independence with ADLs, education on AE for LE dressing in order to minimize pain, and activity modification education. Discharge Recommendations Plan/Recommendations: Continue POC Treatment Plan/Plan of Care Patient would benefit from OT for education, treatment and training to promote independence in ADL's, mobility, safety and/or upper extremity function for ADL's. Plan of Care: ADL Retraining, Functional Mobility, UE Funct Exercise/Act Treatment Duration: Apr 05, 2021 Frequency: 5 times per week Estimated Hrs Per Day: .25 hour per day Rehab Potential: Guarded Time/GCodes Start Time: 09:50 Stop Time: 10:30 Total Time Billed (hr/min): 40 Billed Treatment Time 1 visit ADL 3 (40 mins) MALATHI LLOYD Mar 20, 2021 10:35
[2021-03-20 12:00] VITALS: BP 123/83
--- NOTE | 2021-03-20 15:15 | Physical Therapy Daily Note ---
PT Daily Note-Current Subjective Patient in bed pre tx, agrees to PT, has no pain at rest but has pain during treatment and needs to take an occasional rest break because of it. Appearance Patient in bed post tx with nurse call, phone, tray, all needs met. Mental Status Patient Orientation: Person, Place, Situation Attachments: Johnson Catheter, IV Transfers SCALE: Activities may be completed with or without assistive devices. 9-Eeoexpalqv-mmfdpjs completes the activity by him/herself with no assistance from a helper. 5-Set-up or Clean-up Assistance-helper sets up or cleans up; patient completes activity. [place] assists only prior to or following the activity. 4-Supervision or Touching Assistance-helper provides verbal cues and/or touchi ng/steadying and/or contact guard assistance as patient completes activity. Assistance may be provided throughout the activity or intermittently. 3-Partial/Moderate Assistance-helper does LESS THAN HALF the effort. [place] lifts, holds or supports trunk or limbs, but provides less than half the effort. 2-Substantial/Maximal Assistance-helper does MORE THAN HALF the effort. [place] lifts or holds trunk or limbs and provides more than half the effort. 7-Aqzjuwydx-opgdyb does ALL the effort. Patient does none of the effort to complete the activity. Or, the assistance of 2 or more helpers is required for the patient to complete the activity. If activity was not attempted, code reason: 7-Patient Refused. 9-Not Applicable-not attempted and the patient did not perform the activity before the current illness, exacerbation or injury. 10-Not Attempted due to Environmental Limitations-(lack of equipment, weather restraints, etc.). 88-Not Attempted due to Medical Conditions or Safety Concerns. Roll Left & Right (QC): 6 Sit to Lying (QC): 3 Lying to Sitting/Side of Bed(Q: 3 Sit to Stand (QC): 4 Chair/Sqa-pn-Artfs Xfer(QC): 4 Weight Bearing Right Lower Extremity: Right Weight Bearing/Tolerated Gait Training Distance: 30' Walk 10 feet (QC): 4 Gait Persons Needed: 1 Gait Assistive Device: FWW slow but steady ambulation Exercises Seated Therapy Exercises: Ankle pumps, Long arc quads Seated Reps: 20 Treatments bed mobility and transfers, ambulation, LE exercise Assessment Current Status: Fair Progress improving ambulation PT Instructional Coordinator Goals Instructional Coordinator Goals PT Prison Goals Time Frame: Apr 06, 2021 Roll Left & Right (QC): 4 Sit to Lying (QC): 4 Lying-Sitting on Side/Bed(QC): 4 Sit to Stand (QC): 4 Chair/Clv-mm-Eenhf Xfer(QC): 4 Toilet Transfer (QC): 4 Car Transfer (QC): 4 Does the Patient Walk: No and Walking Goal IS indicated Walk 10 feet (QC): 3 Walk 50ft with 2 Turns (QC): 88 Walk 150 ft (QC): 88 Walking 10ft on Uneven Surface: 88 1 Step (curb) (QC): 9 4 Steps (QC): 9 12 Steps (QC): 9 Picking up an Object (QC): 88 Wheel 50 feet with 2 turns (QC: 88 Type: N/A Wheel 150 feet: 88 Type: N/A PT Plan Problem List Problem List: Activity Tolerance, Functional Strength, Safety, Balance, Gait, Transfer, Bed Mobility, ROM Treatment/Plan Treatment Plan: Continue Plan of Care Treatment Plan: Bed Mobility, Education, Functional Activity Radha, Functional Strength, Gait, Safety, Therapeutic Exercise, Transfers Treatment Duration: Apr 06, 2021 Frequency: 6 times per week Estimated Hrs Per Day: .25 hour per day Patient and/or Family Agrees t: Yes Safety Risks/Education Patient Education: Gait Training, Transfer Techniques, Correct Positioning, Safety Issues Teaching Recipient: Patient Teaching Methods: Demonstration, Discussion Response to Teaching: Reinforcement Needed Time/GCodes Time In: 1445 Time Out: 1500 Total Billed Treatment Time: 15 Total Billed Treatment 1 visit GT 15PAUL MEDLEY PT Mar 20, 2021 15:14
[2021-03-20 16:24] VITALS: BP 112/74
[2021-03-20 19:58] VITALS: BP 116/77
[2021-03-20] MEDS: NS IV 1000 ML 1,000 ML IV SCH (20:27)
[2021-03-21 00:10] VITALS: BP 117/77
[2021-03-21 04:16] VITALS: BP 135/84
--- NOTE | 2021-03-21 07:14 | Progress Note ---
Subjective Date Seen by a Provider: Mar 21, 2021 Time Seen by a Provider: 06:50 Subjective/Events-last exam Patient was asleep and appeared to be resting comfortably. Discussion today focused on her pain level. She still is using the PAPER MAKING MACHINE OPERATOR pump both continuous and intermittent. She reports she has been able to walk in the room some. Her Johnson catheter is still in place. She had bowel movement on March 19. She had questions on when she may potentially be able to go home. Objective Exam Vital Signs Date Time Temp Pulse Resp B/P (MAP) Pulse Ox O2 Delivery O2 Flow Rate FiO2 03/21/21 04:16 36.4 73 19 135/84 (101) 98 Room Air 03/21/21 00:10 36.7 74 17 117/77 (90) 97 Room Air 03/20/21 19:58 36.4 97 18 116/77 (90) 96 Room Air 03/20/21 19:20 Room Air 03/20/21 16:24 36.2 100 18 112/74 (87) 97 Room Air 03/20/21 12:00 36.0 121 18 123/83 (96) 98 Room Air 03/20/21 08:00 36.5 113 20 140/77 (98) 98 Room Air 03/20/21 08:00 Room Air I & O 03/21/21 07:00 Intake Total 2300 ml Output Total 2150 ml Balance 150 ml Capillary Refill : Less Than 3 Seconds General Appearance: No Apparent Distress Respiratory: Lungs Clear Cardiovascular: Regular Rate, Rhythm Gastrointestinal: soft Results Lab Microbiology 03/13/21 MRSA Screen - Final, Complete MRSA not isolated Assessment/Plan Assessment/Plan Assess & Plan/Chief Complaint 1. Adenocarcinoma breast primary with metastasis to right hip and T9 -Admitted now to swing bed 03/14 -Receiving daily radiation therapy and tamoxifen 03/15 -Noted Dr Bocanegra's PN 03/21 -still receiving radiation therapy 2. Intractable pain due to the metastasis -Dilaudid PAPER MAKING MACHINE OPERATOR pump 03/14 -PAPER MAKING MACHINE OPERATOR pump otherwise no change 03/15 -PAPER MAKING MACHINE OPERATOR pump still available 03/18 -still requiring PAPER MAKING MACHINE OPERATOR pump as scheduled 03/21 -Will DC Johnson catheter since her pain level has improved and she can now go to the bathroom herself most likely 3. Nutritional status -check CMP as well as check her weight weekly. 03/15 -protein and albumin stable -Her weight is pending 4. Dyspepsia -on pepcid and protonix 5. HTN-history of -she is currently stable with bp 6. Constipation most likely due to inactivity as well as narcotic usage GLADIS GRIGGS MD Mar 21, 2021 07:14
[2021-03-21 08:13] VITALS: BP 115/69
[2021-03-21] MEDS: ASPIRIN E.C. 81 MG (ECOTRIN) TAB PO SCH (08:59)
[2021-03-21] MEDS: DOCUSATE SODIUM 100 MG (COLACE) CAP PO SCH ×2 (08:59→20:44)
[2021-03-21] MEDS: FAMOTIDINE 20 MG (PEPCID) TABLET PO SCH (09:00)
[2021-03-21] MEDS: polyethylene glycoL POWDER 17 GM (MIRALAX) PACK PO SCH (09:00)
[2021-03-21] MEDS: PANTOPRAZOLE 40 MG (PROTONIX) TAB PO SCH ×2 (09:00→20:44)
[2021-03-21] MEDS: TAMOXIFEN 10 MG (NOLVADEX) TAB PO SCH (09:00)
--- NOTE | 2021-03-21 09:59 | Occupational Ther Daily Note ---
OT Current Status-Daily Note Subjective Pt sitting in chair when therapy entered. Pt agreed to therapy. No c/o pain reported. Mental Status/Objective Patient Orientation: Person, Place, Time, Situation Attachments: IV ADL-Treatment Pt agreed to oral hygiene and washing face. After set up, pt completed oral hygiene while seated in chair. After set up, pt washed face with wash cloth. Therapy Code Descriptions/Definitions Functional [place] Measure: 0=Not Assessed/NA 4=Minimal Assistance 1=Total Assistance 5=Supervision or Setup 2=Maximal Assistance 6=Modified [place] 3=Moderate Assistance 7=Complete IndependenceSCALE: Activities may be completed with or without assistive devices. 5-Wbdbvcwkfc-gqhuxrw completes the activity by him/herself with no assistance from a helper. 5-Set-up or Clean-up Assistance-helper sets up or cleans up; patient completes activity. [place] assists only prior to or following the activity. 4-Supervision or Touching Assistance-helper provides verbal cues and/or touching/steadying and/or contact guard assistance as patient completes activity. Assistance may be provided throughout the activity or intermittently. 3-Partial/Moderate Assistance-helper does LESS THAN HALF the effort. [place] lifts, holds or supports trunk or limbs, but provides less than half the effort. 2-Substantial/Maximal Assistance-helper does MORE THAN HALF the effort. [place] lifts or holds trunk or limbs and provides more than half the effort. 6-Yscnzcssd-tunaah does ALL the effort. Patient does none of the effort to complete the activity. Or, the assistance of 2 or more helpers is required for the patient to complete the activity. If activity was not attempted, code reason: 7-Patient Refused. 9-Not Applicable-not attempted and the patient did not perform the activity before the current illness, exacerbation or injury. 10-Not Attempted due to Environmental Limitations-(lack of equipment, weather restraints, etc.). 88-Not Attempted due to Medical Conditions or Safety Concerns. Other Treatment Pt required skilled instruction of exercises for correct demonstration. While seated in chair patient completed B UE exercises of: shoulder flexion, shoulder extension, shlder adduction/abduction, and elbow flexion to increase BUE strength for improved activity tolerance to complete ADLs. Pt required resting break during exercise due to fatigue and low endurance. Education OT Patient Education: Correct positioning, Energy conservation, Exercise program Teaching Recipient: Patient Teaching Methods: Demonstration, Discussion Response to Teaching: Verbalize Understanding, Return Demonstration OT Honing Machine Operator Semiautomatic Goals Senior Living Goals Time Frame: Apr 05, 2021 Eating (QC): 6 Oral Hygiene (QC): 5 Toileting Hygiene (QC): 3 Shower/Bathe Self (QC): 3 Upper Body Dressing (QC): 5 Lower Body Dressing (QC): 3 On/Off Footwear (QC): 3 Additional Goals: 1-Demonstrate ADL Tasks, 2-Verbalize Understanding, 3- ImproveStrength/Radha 1=Demonstrate adherence to instructed precautions during ADL tasks. 2=Patient will verbalize/demonstrate understanding of assistive devices/modifications for ADL. 3=Patient will improve strength/tolerance for activity to enable patient to perform ADL's. OT Education/Plan Problem List/Assessment Assessment: Decreased Activ Tolerance, Decreased UE Strength, Impaired Self- Care Skills Pt would benefit from skilled OT services in order to increase safety and independence with ADLs, education on AE for LE dressing in order to minimize pain, and activity modification education. Discharge Recommendations Plan/Recommendations: Continue POC Treatment Plan/Plan of Care Patient would benefit from OT for education, treatment and training to promote independence in ADL's, mobility, safety and/or upper extremity function for ADL's. Plan of Care: ADL Retraining, Functional Mobility, UE Funct Exercise/Act Treatment Duration: Apr 05, 2021 Frequency: 5 times per week Estimated Hrs Per Day: .25 hour per day Rehab Potential: Guarded Time/GCodes Start Time: 09:30 Stop Time: 09:45 Total Time Billed (hr/min): 15 Billed Treatment Time 1 visit- ADL 1 (15 mins) MALATHI LLOYD Mar 21, 2021 09:59
[2021-03-21 11:52] VITALS: BP 117/70
--- NOTE | 2021-03-21 12:00 | Physical Therapy Daily Note ---
PT Daily Note-Current Subjective Patient agrees to PT. Mental Status Patient Orientation: Normal For Age Attachments: IV Transfers SCALE: Activities may be completed with or without assistive devices. 9-Wkzlupzdxa-eiuazlf completes the activity by him/herself with no assistance from a helper. 5-Set-up or Clean-up Assistance-helper sets up or cleans up; patient completes activity. [place] assists only prior to or following the activity. 4-Supervision or Touching Assistance-helper provides verbal cues and/or touching/steadying and/or contact guard assistance as patient completes activity. Assistance may be provided throughout the activity or intermittently. 3-Partial/Moderate Assistance-helper does LESS THAN HALF the effort. [place] lifts, holds or supports trunk or limbs, but provides less than half the effort. 2-Substantial/Maximal Assistance-helper does MORE THAN HALF the effort. [place] lifts or holds trunk or limbs and provides more than half the effort. 3-Iinucfbsc-iibcdm does ALL the effort. Patient does none of the effort to complete the activity. Or, the assistance of 2 or more helpers is required for the patient to complete the activity. If activity was not attempted, code reason: 7-Patient Refused. 9-Not Applicable-not attempted and the patient did not perform the activity before the current illness, exacerbation or injury. 10-Not Attempted due to Environmental Limitations-(lack of equipment, weather restraints, etc.). 88-Not Attempted due to Medical Conditions or Safety Concerns. Sit to Lying (QC): 4 Lying to Sitting/Side of Bed(Q: 4 Sit to Stand (QC): 4 all SBA Weight Bearing Right Lower Extremity: Right Weight Bearing/Tolerated Gait Training Does the Patient Walk?: Yes Distance: 50' Walk 10 feet (QC): 4 Walk 50 ft with 2 Turns(QC): 4 Walk 150 ft (QC): 88 Gait Assistive Device: FWW slow, steady, functional gait sequence Exercises Seated Therapy Exercises: Long arc quads Seated Reps: 15 Assessment Patient requires time to complete all functional tasks due to back and right hip pain. Patient pleased with progress of SBA with all mobility. Continue to i ncrease activity as tolerated by patient. PT Senior Living Goals Director Of Education Goals PT Director Of Education Goals Time Frame: Apr 06, 2021 Roll Left & Right (QC): 4 Sit to Lying (QC): 4 Lying-Sitting on Side/Bed(QC): 4 Sit to Stand (QC): 4 Chair/Sat-zu-Bepik Xfer(QC): 4 Toilet Transfer (QC): 4 Car Transfer (QC): 4 Does the Patient Walk: No and Walking Goal IS indicated Walk 10 feet (QC): 3 Walk 50ft with 2 Turns (QC): 88 Walk 150 ft (QC): 88 Walking 10ft on Uneven Surface: 88 1 Step (curb) (QC): 9 4 Steps (QC): 9 12 Steps (QC): 9 Picking up an Object (QC): 88 Wheel 50 feet with 2 turns (QC: 88 Type: N/A Wheel 150 feet: 88 Type: N/A PT Plan Treatment/Plan Treatment Plan: Continue Plan of Care Treatment Plan: Bed Mobility, Education, Functional Activity Radha, Functional Strength, Gait, Safety, Therapeutic Exercise, Transfers Treatment Duration: Apr 06, 2021 Frequency: 6 times per week Estimated Hrs Per Day: .25 hour per day Patient and/or Family Agrees t: Yes Time/GCodes Time In: 1100 Time Out: 1123 Total Billed Treatment Time: 23 Total Billed Treatment 1 visit FA x 2 23 min JAISON QUINN PT Mar 21, 2021 12:00
[2021-03-21 16:20] VITALS: BP 129/76
[2021-03-21 20:13] VITALS: BP 121/80
[2021-03-22 00:07] VITALS: BP 109/62
[2021-03-22 04:05] VITALS: BP 106/99
[2021-03-22] MEDS: NS IV 1000 ML 1,000 ML IV SCH (04:23)
[2021-03-22 08:00] VITALS: BP 124/69
[2021-03-22] MEDS: PANTOPRAZOLE 40 MG (PROTONIX) TAB PO SCH ×2 (09:05→20:17)
[2021-03-22] MEDS: TAMOXIFEN 10 MG (NOLVADEX) TAB PO SCH (09:05)
[2021-03-22] MEDS: ASPIRIN E.C. 81 MG (ECOTRIN) TAB PO SCH (09:06)
[2021-03-22] MEDS: DOCUSATE SODIUM 100 MG (COLACE) CAP PO SCH ×2 (09:06→20:17)
[2021-03-22] MEDS: FAMOTIDINE 20 MG (PEPCID) TABLET PO SCH (09:06)
[2021-03-22] MEDS: polyethylene glycoL POWDER 17 GM (MIRALAX) PACK PO SCH ×2 (09:08→09:10)
--- NOTE | 2021-03-22 09:35 | Physical Therapy Daily Note ---
PT Daily Note-Current Subjective Patient agrees to PT. Mental Status Patient Orientation: Normal For Age Attachments: Johnson Catheter, IV Transfers SCALE: Activities may be completed with or without assistive devices. 0-Aflwdakebj-wckcptl completes the activity by him/herself with no assistance from a helper. 5-Set-up or Clean-up Assistance-helper sets up or cleans up; patient completes activity. [place] assists only prior to or following the activity. 4-Supervision or Touching Assistance-helper provides verbal cues and/or touching/steadying and/or contact guard assistance as patient completes activity. Assistance may be provided throughout the activity or intermittently. 3-Partial/Moderate Assistance-helper does LESS THAN HALF the effort. [place] lifts, holds or supports trunk or limbs, but provides less than half the effort. 2-Substantial/Maximal Assistance-helper does MORE THAN HALF the effort. [place] lifts or holds trunk or limbs and provides more than half the effort. 0-Idatqguqr-twwqzu does ALL the effort. Patient does none of the effort to complete the activity. Or, the assistance of 2 or more helpers is required for the patient to complete the activity. If activity was not attempted, code reason: 7-Patient Refused. 9-Not Applicable-not attempted and the patient did not perform the activity before the current illness, exacerbation or injury. 10-Not Attempted due to Environmental Limitations-(lack of equipment, weather restraints, etc.). 88-Not Attempted due to Medical Conditions or Safety Concerns. Lying to Sitting/Side of Bed(Q: 4 Sit to Stand (QC): 4 Chair/Akf-go-Clapm Xfer(QC): 4 Toilet Transfer (QC): 4 SBA with all mobility Weight Bearing Right Lower Extremity: Right Weight Bearing/Tolerated Gait Training Distance: 20' x 2 Walk 10 feet (QC): 4 Gait Assistive Device: FWW slow, antalgic Exercises Seated Therapy Exercises: Ankle pumps, Long arc quads, Hip flexion Seated Reps: 15 Assessment Patient currently SBA with all mobility. Increase activity as tolerated by patient. PT Care Home Goals Care Home Goals PT Office Support Specialist Goals Time Frame: Apr 06, 2021 Roll Left & Right (QC): 4 Sit to Lying (QC): 4 Lying-Sitting on Side/Bed(QC): 4 Sit to Stand (QC): 4 Chair/Oas-sn-[place] Xfer(QC): 4 Toilet Transfer (QC): 4 Car Transfer (QC): 4 Does the Patient Walk: No and Walking Goal IS indicated Walk 10 feet (QC): 3 Walk 50ft with 2 Turns (QC): 88 Walk 150 ft (QC): 88 Walking 10ft on Uneven Surface: 88 1 Step (curb) (QC): 9 4 Steps (QC): 9 12 Steps (QC): 9 Picking up an Object (QC): 88 Wheel 50 feet with 2 turns (QC: 88 Type: N/A Wheel 150 feet: 88 Type: N/A PT Plan Treatment/Plan Treatment Plan: Continue Plan of Care Treatment Plan: Bed Mobility, Education, Functional Activity Radha, Functional Strength, Gait, Safety, Therapeutic Exercise, Transfers Treatment Duration: Apr 06, 2021 Frequency: 6 times per week Estimated Hrs Per Day: .25 hour per day Patient and/or Family Agrees t: Yes Time/GCodes Time In: 755 Time Out: 812 Total Billed Treatment Time: 17 Total Billed Treatment 1 visit FA 17 min JAISON QUINN PT Mar 22, 2021 09:35
--- NOTE | 2021-03-22 11:37 | Occupational Ther Daily Note ---
OT Current Status-Daily Note Subjective Pt sitting in recliner, when therapy entered. Pt agreed to therapy. No c/o pain reported. Mental Status/Objective Patient Orientation: Person, Place, Time, Situation Attachments: IV ADL-Treatment Pt agreed to shower. Pt sit-stand from chair to FWW with supervision. Pt ambulated from room to shower bench using FWW with CGA. Due to increase weakness and fatigue, therapist completed cleansing/drying of UB, LB, chest and abdomen. During shower, pt demonstrated improved sitting tolerance but quickly fatigued due to increase pain. Continue to work on increasing endurance during shower to improve activity tolerance to complete ADLs. Pt sit-stand using grab bars with supervision. Pt sit-stand from shower bench using grab bars and ambulated to recliner at bathroom door with CGA. While seated in recliner, therapist brushed hair due to fatigue and increase in pain. After session, pt sitting in chair. Call light in reach. All needs met. Therapy Code Descriptions/Definitions Functional [place] Measure: 0=Not Assessed/NA 4=Minimal Assistance 1=Total Assistance 5=Supervision or Setup 2=Maximal Assistance 6=Modified [place] 3=Moderate Assistance 7=Complete IndependenceSCALE: Activities may be completed with or without assistive devices. 7-Ryoaelhpvm-djnjduf completes the activity by him/herself with no assistance from a helper. 5-Set-up or Clean-up Assistance-helper sets up or cleans up; patient completes activity. [place] assists only prior to or following the activity. 4-Supervision or Touching Assistance-helper provides verbal cues and/or touching/steadying and/or contact guard assistance as patient completes activity. Assistance may be provided throughout the activity or intermittently. 3-Partial/Moderate Assistance-helper does LESS THAN HALF the effort. [place] lifts, holds or supports trunk or limbs, but provides less than half the effort. 2-Substantial/Maximal Assistance-helper does MORE THAN HALF the effort. [place] lifts or holds trunk or limbs and provides more than half the effort. 5-Romdkkfan-gtybsl does ALL the effort. Patient does none of the effort to complete the activity. Or, the assistance of 2 or more helpers is required for the patient to complete the activity. If activity was not attempted, code reason: 7-Patient Refused. 9-Not Applicable-not attempted and the patient did not perform the activity before the current illness, exacerbation or injury. 10-Not Attempted due to Environmental Limitations-(lack of equipment, weather restraints, etc.). 88-Not Attempted due to Medical Conditions or Safety Concerns. Education OT Patient Education: Correct positioning, Energy conservation, Transfer techniques Teaching Recipient: Patient Teaching Methods: Discussion Response to Teaching: Verbalize Understanding, Return Demonstration OT Conveyor Weigher Operator Goals Conveyor Weigher Operator Goals Time Frame: Apr 05, 2021 Eating (QC): 6 Oral Hygiene (QC): 5 Toileting Hygiene (QC): 3 Shower/Bathe Self (QC): 3 Upper Body Dressing (QC): 5 Lower Body Dressing (QC): 3 On/Off Footwear (QC): 3 Additional Goals: 1-Demonstrate ADL Tasks, 2-Verbalize Understanding, 3- ImproveStrength/Radha 1=Demonstrate adherence to instructed precautions during ADL tasks. 2=Patient will verbalize/demonstrate understanding of assistive devices/modif ications for ADL. 3=Patient will improve strength/tolerance for activity to enable patient to perform ADL's. OT Education/Plan Problem List/Assessment Assessment: Decreased Activ Tolerance, Decreased UE Strength, Impaired Self- Care Skills Pt would benefit from skilled OT services in order to increase safety and independence with ADLs, education on AE for LE dressing in order to minimize pain, and activity modification education. Discharge Recommendations Plan/Recommendations: Continue POC Treatment Plan/Plan of Care Patient would benefit from OT for education, treatment and training to promote independence in ADL's, mobility, safety and/or upper extremity function for ADL's. Plan of Care: ADL Retraining, Functional Mobility, UE Funct Exercise/Act Treatment Duration: Apr 05, 2021 Frequency: 5 times per week Estimated Hrs Per Day: .25 hour per day Rehab Potential: Guarded Time/GCodes Start Time: 10:10 Stop Time: 10:30 Total Time Billed (hr/min): 20 Billed Treatment Time 1 visit- ADL 1 (20 mins) MALATHI LLOYD Mar 22, 2021 11:37
[2021-03-22 12:00] VITALS: BP 128/69
[2021-03-22 15:38] VITALS: BP 127/65
--- NOTE | 2021-03-22 15:50 | Progress Note ---
Progress Note Assessment/Plan Date Seen by Provider: Mar 22, 2021 Time Seen by Provider: 15:47 Events since last exam Had family conference with her daughter and her son as well as her boyfriend today. Pt has improved with the radiation and steroid and ELECTRON MICROSCOPIST pain control. She is able to stand up and walk a few steps with some help. Plan to continue radiation. Plan to taper off Decadron and convert ELECTRON MICROSCOPIST to oral long acting oral pain meds next week. Assessment/Plan A/P: 1. 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 T9 spine lesion risk of cord compression. Right acetabulum lesion risk of pathological fracture. 2. Intractable pain from the bone mets. Has been Oxycodone and Fentanyl patch at home and still rate pain 10/10. She needed 8mg morphine IV at the clinic in order to calm down her pain. She is doing much better with ELECTRON MICROSCOPIST dilaudid. 3. Dizziness when she turns her head. Resolved. Plan: 1. Radiation to radiate T9 and right hip lesion. Plan 23 radiation treatments, 11 more dose to finish the course if no additional boost per radiation oncologist Dr Zuñiga. Will to continue to taper steroid Decadron to 4mg daily starting tomorrow for 5 more days and then off. 2. Continue Dilaudid ELECTRON MICROSCOPIST 0.3mg/hr CI, 0.2mg bolus q 15mins. no cap. Once we get off the steroid and then we will working on to convert the ELECTRON MICROSCOPIST to oral Oxycontin. Hopefully early next week. 4. Pepcid 20mg bid PO while on steroid. Protonix added by PCP Dr Martin yesterday due to stomach upset 5. Continue oral tamoxifen 20mg daily and will start Faslodex once she is done with the radiation. . 6. Constipation prophylaxis. 7. Physical and occupational therapy Vitals Last set of Vitals Signs Vital Signs Date Time Temp Pulse Resp B/P (MAP) Pulse Ox O2 Delivery O2 Flow Rate FiO2 03/22/21 15:38 36.4 85 20 127/65 (85) 97 Room Air I&O I&O Intake and Output 03/22/21 00:00 Intake Total 1850 ml Output Total 3200 ml Balance -1350 ml Intake Oral 1850 ml Output Urine Total 3200 ml # Bowel Movements 1 Labs Microbiology 03/13/21 MRSA Screen - Final, Complete MRSA not isolated JEZ LAWLER MD Mar 22, 2021 15:50
[2021-03-22 19:13] VITALS: BP 131/78
[2021-03-22] MEDS: ALPRAZolam 0.25 MG (XANAX) TAB PO PRN (21:53)
[2021-03-23 00:42] VITALS: BP 124/65
[2021-03-23 03:45] VITALS: BP 133/65
[2021-03-23] MEDS ORDERED: dexAMETHasone 6 MG TAB (DECADRON) PO SCH (07:00)
[2021-03-23 08:00] VITALS: BP 126/72
[2021-03-23] MEDS: ASPIRIN E.C. 81 MG (ECOTRIN) TAB PO SCH (08:43)
[2021-03-23] MEDS: DOCUSATE SODIUM 100 MG (COLACE) CAP PO SCH ×2 (08:43→20:07)
[2021-03-23] MEDS: PANTOPRAZOLE 40 MG (PROTONIX) TAB PO SCH ×2 (08:43→20:08)
[2021-03-23] MEDS: FAMOTIDINE 20 MG (PEPCID) TABLET PO SCH (08:44)
[2021-03-23] MEDS: TAMOXIFEN 10 MG (NOLVADEX) TAB PO SCH (08:44)
[2021-03-23] MEDS: polyethylene glycoL POWDER 17 GM (MIRALAX) PACK PO SCH (08:44)
[2021-03-23 12:00] VITALS: BP 127/76
--- NOTE | 2021-03-23 12:13 | Physical Therapy Daily Note ---
PT Daily Note-Current Subjective Patient lying supine in bed with family in the room upon PT arrival, agreeable to treatment but requests no gait training this session. She rates her pain currently at 6/10, but notes she hurt much more after gait training last session. Mental Status Patient Orientation: Person, Place, Time, Situation Transfers SCALE: Activities may be completed with or without assistive devices. 5-Wtfqlwzsnm-yazqtyw completes the activity by him/herself with no assistance from a helper. 5-Set-up or Clean-up Assistance-helper sets up or cleans up; patient completes activity. [place] assists only prior to or following the activity. 4-Supervision or Touching Assistance-helper provides verbal cues and/or touching/steadying and/or contact guard assistance as patient completes activity. Assistance may be provided throughout the activity or intermittently. 3-Partial/Moderate Assistance-helper does LESS THAN HALF the effort. [place] lifts, holds or supports trunk or limbs, but provides less than half the effort. 2-Substantial/Maximal Assistance-helper does MORE THAN HALF the effort. [place] lifts or holds trunk or limbs and provides more than half the effort. 6-Fspbsduqh-tvgqhw does ALL the effort. Patient does none of the effort to complete the activity. Or, the assistance of 2 or more helpers is required for the patient to complete the activity. If activity was not attempted, code reason: 7-Patient Refused. 9-Not Applicable-not attempted and the patient did not perform the activity before the current illness, exacerbation or injury. 10-Not Attempted due to Environmental Limitations-(lack of equipment, weather restraints, etc.). 88-Not Attempted due to Medical Conditions or Safety Concerns. Weight Bearing Right Lower Extremity: Right Weight Bearing/Tolerated Exercises Supine Ex: Ankle pumps, Quad Set, Glut sets, Heel Slides, Short Arc Quads, Straight leg raise, Hip abd/add Supine Reps: 20 Assessment Current Status: Fair Progress Patient lying supine in bed, performs LE therapeutic exercise as listed above. Did not perform bed mobility or transfers due to increase in pain, however patient reports she will get up for lunch and dinner. Patient in bed post treatment with all needs met, nursing notified, call light in reach. PT Senior Living Goals Senior Living Goals PT Senior Living Goals Time Frame: Apr 06, 2021 Roll Left & Right (QC): 4 Sit to Lying (QC): 4 Lying-Sitting on Side/Bed(QC): 4 Sit to Stand (QC): 4 Chair/Fvh-yo-Nufmm Xfer(QC): 4 Toilet Transfer (QC): 4 Car Transfer (QC): 4 Does the Patient Walk: No and Walking Goal IS indicated Walk 10 feet (QC): 3 Walk 50ft with 2 Turns (QC): 88 Walk 150 ft (QC): 88 Walking 10ft on Uneven Surface: 88 1 Step (curb) (QC): 9 4 Steps (QC): 9 12 Steps (QC): 9 Picking up an Object (QC): 88 Wheel 50 feet with 2 turns (QC: 88 Type: N/A Wheel 150 feet: 88 Type: N/A PT Plan Treatment/Plan Treatment Plan: Continue Plan of Care Treatment Plan: Bed Mobility, Education, Functional Activity Radha, Functional Strength, Gait, Safety, Therapeutic Exercise, Transfers Treatment Duration: Apr 06, 2021 Frequency: 6 times per week Estimated Hrs Per Day: .25 hour per day Patient and/or Family Agrees t: Yes Safety Risks/Education Patient Education: Reviewed Precautions, Safety Issues Teaching Recipient: Patient Teaching Methods: Demonstration, Discussion Response to Teaching: Verbalize Understanding, Return Demonstration Time/GCodes Time In: 1049 Time Out: 1104 Total Billed Treatment Time: 15 Total Billed Treatment Visit, Ex ALEXANDRO SNIDER PT Mar 23, 2021 12:12
[2021-03-23] MEDS: NS IV 1000 ML 1,000 ML IV SCH (13:02)
[2021-03-23] MEDS: HYDROmorphone PF INJECTION 40 MG in NS (IVPB) 96 ML IV SCH (13:22)
[2021-03-23 15:51] VITALS: BP 120/67
[2021-03-23 19:43] VITALS: BP 108/67
[2021-03-23] MEDS: diphenhydrAMINE 25 MG TAB (BENADRYL) PO PRN (21:53)
[2021-03-24 00:19] VITALS: BP 106/71
[2021-03-24 04:32] VITALS: BP 100/67
[2021-03-24 07:25] VITALS: BP 107/72
[2021-03-24] MEDS: polyethylene glycoL POWDER 17 GM (MIRALAX) PACK PO SCH (09:00)
[2021-03-24] MEDS: DOCUSATE SODIUM 100 MG (COLACE) CAP PO SCH ×2 (10:08→20:15)
[2021-03-24] MEDS: ASPIRIN E.C. 81 MG (ECOTRIN) TAB PO SCH (10:08)
[2021-03-24] MEDS: TAMOXIFEN 10 MG (NOLVADEX) TAB PO SCH (10:09)
[2021-03-24] MEDS: PANTOPRAZOLE 40 MG (PROTONIX) TAB PO SCH ×2 (10:09→20:15)
[2021-03-24] MEDS: FAMOTIDINE 20 MG (PEPCID) TABLET PO SCH (10:09)
[2021-03-24 11:15] VITALS: BP 115/78
[2021-03-24] MEDS: NS IV 1000 ML 1,000 ML IV SCH (14:17)
[2021-03-24 16:41] VITALS: BP 120/79
[2021-03-24 19:50] VITALS: BP 104/60
[2021-03-24] MEDS: diphenhydrAMINE 25 MG TAB (BENADRYL) PO PRN (22:23)
[2021-03-25 00:20] VITALS: BP 109/72
[2021-03-25 04:45] VITALS: BP 117/77
--- NOTE | 2021-03-25 06:34 | Progress Note ---
Subjective Date Seen by a Provider: Mar 25, 2021 Time Seen by a Provider: 06:30 Subjective/Events-last exam She has been more up and out of bed. Twice a day now in recliner. Still using MANAGER TAX but soon to be switched to long acting po pain meds for anticipated home this week. Objective Exam Vital Signs Date Time Temp Pulse Resp B/P (MAP) Pulse Ox O2 Delivery O2 Flow Rate FiO2 03/25/21 04:45 36.6 84 18 117/77 (90) 99 Room Air 03/25/21 00:20 36.4 88 20 109/72 (84) 97 Room Air 03/24/21 20:03 Room Air 03/24/21 19:50 36.0 100 18 104/60 (75) 96 Room Air 03/24/21 18:42 18 03/24/21 16:41 36.4 114 20 120/79 (93) 97 Room Air 03/24/21 11:15 36.6 115 18 115/78 (90) 97 Room Air 03/24/21 08:00 Room Air 03/24/21 07:25 36.5 92 18 107/72 (84) 97 Room Air I & O 03/25/21 07:00 Intake Total 1740 ml Output Total 1250 ml Balance 490 ml Capillary Refill : Less Than 3 Seconds General Appearance: No Apparent Distress Neck: Supple Respiratory: Lungs Clear Cardiovascular: Regular Rate, Rhythm Results Lab Microbiology 03/13/21 MRSA Screen - Final, Complete MRSA not isolated Assessment/Plan Assessment/Plan Assess & Plan/Chief Complaint 1. 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 Intractable pain due to the metastasis -Dilaudid MANAGER TAX pump 03/14 -MANAGER TAX pump otherwise no change 03/15 -MANAGER TAX pump still available 03/18 -still requiring MANAGER TAX pump as scheduled 03/21 -Will DC Johnson catheter since her pain level has improved and she can now go to the bathroom herself most likely 03/25 -switch to po long acting pain meds this week. 3. Nutritional status -check CMP as well as check her weight weekly. 03/15 -protein and albumin stable -Her weight is pending 4. Dyspepsia -on pepcid and protonix 5. HTN-history of -she is currently stable with bp 6. Constipation most likely due to inactivity as well as narcotic usage GLADIS GRIGGS MD Mar 25, 2021 06:34
[2021-03-25 08:00] VITALS: BP 118/60
[2021-03-25] MEDS: ASPIRIN E.C. 81 MG (ECOTRIN) TAB PO SCH (09:24)
[2021-03-25] MEDS: polyethylene glycoL POWDER 17 GM (MIRALAX) PACK PO SCH (09:25)
[2021-03-25] MEDS: TAMOXIFEN 10 MG (NOLVADEX) TAB PO SCH (09:25)
[2021-03-25] MEDS: PANTOPRAZOLE 40 MG (PROTONIX) TAB PO SCH ×2 (09:25→20:12)
[2021-03-25] MEDS: DOCUSATE SODIUM 100 MG (COLACE) CAP PO SCH ×2 (09:25→20:12)
[2021-03-25] MEDS: FAMOTIDINE 20 MG (PEPCID) TABLET PO SCH (09:25)
--- NOTE | 2021-03-25 10:43 | Occupational Ther Daily Note ---
OT Current Status-Daily Note Subjective Pt alert, laying in bed when therapy. Pt agreed to therapy. Pt reported of pain, Mental Status/Objective Patient Orientation: Person, Place, Time, Situation Attachments: IV ADL-Treatment Pt agreed to shower. Pt transferred from supine to EOB independently. Pt transferred from EOB to FWW with CGA. Pt ambulated to bathroom and transferred to toilet using FWW with CGA. Pt completed toilet hygiene with CGA. Pt required min A to doff/don gown due to IV line. Due to increase weakness and fatigue, therapist completed cleansing/drying of UB, LB, chest and abdomen. During shower, pt quickly fatigued due to increase pain. Continue to work on increasing endurance during shower to improve activity tolerance to complete ADLs. Pt sit- stand using grab bars with CGA. Pt sit-stand from shower bench using grab bars and ambulated to recliner at bathroom door with CGA. After session, pt sitting in chair. Call light in reach. All needs met. Therapy Code Descriptions/Definitions Functional [place] Measure: 0=Not Assessed/NA 4=Minimal Assistance 1=Total Assistance 5=Supervision or Setup 2=Maximal Assistance 6=Modified [place] 3=Moderate Assistance 7=Complete IndependenceSCALE: Activities may be completed with or without assistive devices. 9-Mkzcupjvoj-djnukjh completes the activity by him/herself with no assistance from a helper. 5-Set-up or Clean-up Assistance-helper sets up or cleans up; patient completes activity. [place] assists only prior to or following the activity. 4-Supervision or Touching Assistance-helper provides verbal cues and/or touching/steadying and/or contact guard assistance as patient completes activity. Assistance may be provided throughout the activity or intermittently. 3-Partial/Moderate Assistance-helper does LESS THAN HALF the effort. [place] lifts, holds or supports trunk or limbs, but provides less than half the effort. 2-Substantial/Maximal Assistance-helper does MORE THAN HALF the effort. [place] lifts or holds trunk or limbs and provides more than half the effort. 9-Rpbbfppfn-sbymue does ALL the effort. Patient does none of the effort to complete the activity. Or, the assistance of 2 or more helpers is required for the patient to complete the activity. If activity was not attempted, code reason: 7-Patient Refused. 9-Not Applicable-not attempted and the patient did not perform the activity before the current illness, exacerbation or injury. 10-Not Attempted due to Environmental Limitations-(lack of equipment, weather restraints, etc.). 88-Not Attempted due to Medical Conditions or Safety Concerns. Education OT Patient Education: Correct positioning, Energy conservation Teaching Recipient: Patient Teaching Methods: Discussion Response to Teaching: Verbalize Understanding, Return Demonstration OT Co Founder Goals [place] Goals Time Frame: Apr 05, 2021 Eating (QC): 6 Oral Hygiene (QC): 5 Toileting Hygiene (QC): 3 Shower/Bathe Self (QC): 3 Upper Body Dressing (QC): 5 Lower Body Dressing (QC): 3 On/Off Footwear (QC): 3 Additional Goals: 1-Demonstrate ADL Tasks, 2-Verbalize Understanding, 3- ImproveStrength/Radha 1=Demonstrate adherence to instructed precautions during ADL tasks. 2=Patient will verbalize/demonstrate understanding of assistive devices/modifications for ADL. 3=Patient will improve strength/tolerance for activity to enable patient to perform ADL's. OT Education/Plan Problem List/Assessment Assessment: Decreased Activ Tolerance, Decreased UE Strength, Impaired Self- Care Skills Pt would benefit from skilled OT services in order to increase safety and independence with ADLs, education on AE for LE dressing in order to minimize pain, and activity modification education. Discharge Recommendations Plan/Recommendations: Continue POC Treatment Plan/Plan of Care Patient would benefit from OT for education, treatment and training to promote independence in ADL's, mobility, safety and/or upper extremity function for ADL's. Plan of Care: ADL Retraining, Functional Mobility, UE Funct Exercise/Act Treatment Duration: Apr 05, 2021 Frequency: 5 times per week Estimated Hrs Per Day: .25 hour per day Rehab Potential: Guarded Time/GCodes Start Time: 10:00 Stop Time: 10:27 Total Time Billed (hr/min): 27 Billed Treatment Time 1 visit- ADL 2 (27 mins) MALATHI LLOYD Mar 25, 2021 10:43
[2021-03-25 12:00] VITALS: BP 127/73
[2021-03-25] MEDS: NS IV 1000 ML 1,000 ML IV SCH (12:00)
--- NOTE | 2021-03-25 14:06 | Physical Therapy Daily Note ---
PT Daily Note-Current Subjective Patient reports extreme fatigue on this date. Currently in bed and agrees to bed exercises only. Mental Status Patient Orientation: Normal For Age Attachments: Johnson Catheter, IV Transfers SCALE: Activities may be completed with or without assistive devices. 6-Ycjsbsepil-xbehlfi completes the activity by him/herself with no assistance from a helper. 5-Set-up or Clean-up Assistance-helper sets up or cleans up; patient completes activity. [place] assists only prior to or following the activity. 4-Supervision or Touching Assistance-helper provides verbal cues and/or touching/steadying and/or contact guard assistance as patient completes activity. Assistance may be provided throughout the activity or intermittently. 3-Partial/Moderate Assistance-helper does LESS THAN HALF the effort. [place] lifts, holds or supports trunk or limbs, but provides less than half the effort. 2-Substantial/Maximal Assistance-helper does MORE THAN HALF the effort. [place] lifts or holds trunk or limbs and provides more than half the effort. 1-Odenowuuj-vrsqrt does ALL the effort. Patient does none of the effort to complete the activity. Or, the assistance of 2 or more helpers is required for the patient to complete the activity. If activity was not attempted, code reason: 7-Patient Refused. 9-Not Applicable-not attempted and the patient did not perform the activity be fore the current illness, exacerbation or injury. 10-Not Attempted due to Environmental Limitations-(lack of equipment, weather restraints, etc.). 88-Not Attempted due to Medical Conditions or Safety Concerns. Weight Bearing Right Lower Extremity: Right Weight Bearing/Tolerated Exercises Supine Ex: Ankle pumps, Quad Set, Glut sets, Heel Slides, Straight leg raise Supine Reps: 10 Assessment Patient requires time to complete all functional tasks. Fatigues with minimal activity on this date. PT Payroll Accountant Goals Payroll Accountant Goals PT Halfway Goals Time Frame: Apr 06, 2021 Roll Left & Right (QC): 4 Sit to Lying (QC): 4 Lying-Sitting on Side/Bed(QC): 4 Sit to Stand (QC): 4 Chair/Ulk-jy-Rmyvl Xfer(QC): 4 Toilet Transfer (QC): 4 Car Transfer (QC): 4 Does the Patient Walk: No and Walking Goal IS indicated Walk 10 feet (QC): 3 Walk 50ft with 2 Turns (QC): 88 Walk 150 ft (QC): 88 Walking 10ft on Uneven Surface: 88 1 Step (curb) (QC): 9 4 Steps (QC): 9 12 Steps (QC): 9 Picking up an Object (QC): 88 Wheel 50 feet with 2 turns (QC: 88 Type: N/A Wheel 150 feet: 88 Type: N/A PT Plan Treatment/Plan Treatment Plan: Continue Plan of Care Treatment Plan: Bed Mobility, Education, Functional Activity Radha, Functional Strength, Gait, Safety, Therapeutic Exercise, Transfers Treatment Duration: Apr 06, 2021 Frequency: 6 times per week Estimated Hrs Per Day: .25 hour per day Patient and/or Family Agrees t: Yes Time/GCodes Time In: 1305 Time Out: 1321 Total Billed Treatment Time: 16 Total Billed Treatment 1 visit EX 16 min JAISON QUINN PT Mar 25, 2021 14:06
[2021-03-25 15:40] VITALS: BP 134/82
[2021-03-25 20:15] VITALS: BP 123/84
[2021-03-25] MEDS: diphenhydrAMINE 25 MG TAB (BENADRYL) PO PRN (22:12)
[2021-03-26 00:09] VITALS: BP 135/77
[2021-03-26] MEDS: HYDROmorphone 2 MG/ML VIAL (DILAUDID) IV PRN (00:54)
[2021-03-26 04:14] VITALS: BP 130/80
[2021-03-26 07:58] VITALS: BP 138/71
[2021-03-26] MEDS: polyethylene glycoL POWDER 17 GM (MIRALAX) PACK PO SCH (08:01)
[2021-03-26] MEDS: FAMOTIDINE 20 MG (PEPCID) TABLET PO SCH (08:01)
[2021-03-26] MEDS: ASPIRIN E.C. 81 MG (ECOTRIN) TAB PO SCH (08:01)
[2021-03-26] MEDS: PANTOPRAZOLE 40 MG (PROTONIX) TAB PO SCH (08:01)
[2021-03-26] MEDS: DOCUSATE SODIUM 100 MG (COLACE) CAP PO SCH ×2 (08:01→21:52)
[2021-03-26] MEDS: TAMOXIFEN 10 MG (NOLVADEX) TAB PO SCH (08:01)
--- NOTE | 2021-03-26 09:22 | Physical Therapy Daily Note ---
PT Daily Note-Current Subjective Patient rates back pain 6/10 with WAREHOUSE GUARD use. Increase in back pain with slight forward lean. Pain Numeric Pain Scale: 6 Location: Medial Location Body Site: Back Pain Description: Sharp Mental Status Patient Orientation: Normal For Age Attachments: IV Transfers SCALE: Activities may be completed with or without assistive devices. 7-Jqzvsoanur-ueacsfl completes the activity by him/herself with no assistance from a helper. 5-Set-up or Clean-up Assistance-helper sets up or cleans up; patient completes activity. [place] assists only prior to or following the activity. 4-Supervision or Touching Assistance-helper provides verbal cues and/or touching/steadying and/or contact guard assistance as patient completes activity. Assistance may be provided throughout the activity or intermittently. 3-Partial/Moderate Assistance-helper does LESS THAN HALF the effort. [place] lifts, holds or supports trunk or limbs, but provides less than half the effort. 2-Substantial/Maximal Assistance-helper does MORE THAN HALF the effort. [place] lifts or holds trunk or limbs and provides more than half the effort. 9-Ftktrfuct-yxxpfz does ALL the effort. Patient does none of the effort to complete the activity. Or, the assistance of 2 or more helpers is required for the patient to complete the activity. If activity was not attempted, code reason: 7-Patient Refused. 9-Not Applicable-not attempted and the patient did not perform the activity before the current illness, exacerbation or injury. 10-Not Attempted due to Environmental Limitations-(lack of equipment, weather restraints, etc.). 88-Not Attempted due to Medical Conditions or Safety Concerns. Lying to Sitting/Side of Bed(Q: 6 Sit to Stand (QC): 4 Chair/Qub-ig-Qjrki Xfer(QC): 4 Weight Bearing Right Lower Extremity: Right Weight Bearing/Tolerated Gait Training Does the Patient Walk?: Yes Distance: 15' Walk 10 feet (QC): 4 Walk 50 ft with 2 Turns(QC): 88 Walk 150 ft (QC): 88 Gait Assistive Device: FWW very, slow and antalgic Exercises Seated Therapy Exercises: Ankle pumps, Long arc quads Seated Reps: 15 Assessment Patient has increase c/o back pain with RN aware. Patient up in recliner. Patient utilized WAREHOUSE GUARD x 1 during session. PT Group Home Goals Group Home Goals PT Group Home Goals Time Frame: Apr 06, 2021 Roll Left & Right (QC): 4 Sit to Lying (QC): 4 Lying-Sitting on Side/Bed(QC): 4 Sit to Stand (QC): 4 Chair/Uvl-dc-Isinq Xfer(QC): 4 Toilet Transfer (QC): 4 Car Transfer (QC): 4 Does the Patient Walk: No and Walking Goal IS indicated Walk 10 feet (QC): 3 Walk 50ft with 2 Turns (QC): 88 Walk 150 ft (QC): 88 Walking 10ft on Uneven Surface: 88 1 Step (curb) (QC): 9 4 Steps (QC): 9 12 Steps (QC): 9 Picking up an Object (QC): 88 Wheel 50 feet with 2 turns (QC: 88 Type: N/A Wheel 150 feet: 88 Type: N/A PT Plan Treatment/Plan Treatment Plan: Continue Plan of Care Treatment Plan: Bed Mobility, Education, Functional Activity Radha, Functional Strength, Gait, Safety, Therapeutic Exercise, Transfers Treatment Duration: Apr 06, 2021 Frequency: 6 times per week Estimated Hrs Per Day: .25 hour per day Patient and/or Family Agrees t: Yes Time/GCodes Time In: 800 Time Out: 817 Total Billed Treatment Time: 17 Total Billed Treatment 1 visit FA 17 min JAISON QUINN PT Mar 26, 2021 09:22
--- NOTE | 2021-03-26 10:15 | Occupational Ther Daily Note ---
OT Current Status-Daily Note Subjective Pt alert, laying in bed when OT entered. Pt agreed to therapy. No c/o pain reported. Mental Status/Objective Patient Orientation: Person, Place, Time, Situation ADL-Treatment Pt requested to use bathroom. Nrsing notified to assist with IV pole. Pt transfe rred from EOB-supine with SBA. Pt transferred from EOB-FWW with CGA. Pt ambulated to bathroom using FWW and transferred to toilet with CGA. Pt completed toilet hygiene with supervision. Pt sit-stand from toilet to FWW using grab bars with CGA. Pt ambulated to room using FWW and transferred to EOB with CGA. Pt transferred from EOB-supine with SBA. After therapy, pt laying in bed. All needs met and call light in reach. Therapy Code Descriptions/Definitions Functional [place] Measure: 0=Not Assessed/NA 4=Minimal Assistance 1=Total Assistance 5=Supervision or Setup 2=Maximal Assistance 6=Modified [place] 3=Moderate Assistance 7=Complete IndependenceSCALE: Activities may be completed with or without assistive devices. 2-Rxtkrpwnft-uqxtxnv completes the activity by him/herself with no assistance from a helper. 5-Set-up or Clean-up Assistance-helper sets up or cleans up; patient completes activity. [place] assists only prior to or following the activity. 4-Supervision or Touching Assistance-helper provides verbal cues and/or juan elham/steadying and/or contact guard assistance as patient completes activity. Assistance may be provided throughout the activity or intermittently. 3-Partial/Moderate Assistance-helper does LESS THAN HALF the effort. [place] lifts, holds or supports trunk or limbs, but provides less than half the effort. 2-Substantial/Maximal Assistance-helper does MORE THAN HALF the effort. [place] lifts or holds trunk or limbs and provides more than half the effort. 0-Yuamcjlsi-cditpb does ALL the effort. Patient does none of the effort to complete the activity. Or, the assistance of 2 or more helpers is required for the patient to complete the activity. If activity was not attempted, code reason: 7-Patient Refused. 9-Not Applicable-not attempted and the patient did not perform the activity before the current illness, exacerbation or injury. 10-Not Attempted due to Environmental Limitations-(lack of equipment, weather restraints, etc.). 88-Not Attempted due to Medical Conditions or Safety Concerns. Other Treatment Skilled instruction required of B UE green theraband exercises. Pt completed x1 set of 10 reps of BUE green theraband exercises while laying in bed to increase activity tolerance for improved endurance during daily task. Pt tolerated exercises well before requesting to use bathroom. Education OT Patient Education: Energy conservation, Exercise program, Home exercise program Teaching Recipient: Patient Teaching Methods: Demonstration, Discussion Response to Teaching: Verbalize Understanding, Return Demonstration OT Intermediate Goals Intermediate Goals Time Frame: Apr 05, 2021 Eating (QC): 6 Oral Hygiene (QC): 5 Toileting Hygiene (QC): 3 Shower/Bathe Self (QC): 3 Upper Body Dressing (QC): 5 Lower Body Dressing (QC): 3 On/Off Footwear (QC): 3 Additional Goals: 1-Demonstrate ADL Tasks, 2-Verbalize Understanding, 3- ImproveStrength/Radha 1=Demonstrate adherence to instructed precautions during ADL tasks. 2=Patient will verbalize/demonstrate understanding of assistive devices/modifications for ADL. 3=Patient will improve strength/tolerance for activity to enable patient to perform ADL's. OT Education/Plan Problem List/Assessment Assessment: Decreased Activ Tolerance, Decreased UE Strength, Impaired Self- Care Skills Pt would benefit from skilled OT services in order to increase safety and independence with ADLs, education on AE for LE dressing in order to minimize pain, and activity modification education. Discharge Recommendations Plan/Recommendations: Continue POC Treatment Plan/Plan of Care Patient would benefit from OT for education, treatment and training to promote independence in ADL's, mobility, safety and/or upper extremity function for ADL's. Plan of Care: ADL Retraining, Functional Mobility, UE Funct Exercise/Act Treatment Duration: Apr 05, 2021 Frequency: 5 times per week Estimated Hrs Per Day: .25 hour per day Rehab Potential: Guarded Time/GCodes Start Time: 09:47 Stop Time: 10:10 Total Time Billed (hr/min): 23 Billed Treatment Time 1 visit- EX 1 (9 mins) ADL 1 (14 mins) MALATHI LLOYD Mar 26, 2021 10:15
[2021-03-26 11:20] VITALS: BP 115/66
[2021-03-26] MEDS: NS IV 1000 ML 1,000 ML IV SCH (12:09)
[2021-03-26] MEDS: CYCLOBENZAPRINE 10 MG (FLEXERIL) TAB PO PRN ×2 (12:48→21:52)
[2021-03-26 15:14] VITALS: BP 120/72
[2021-03-26 20:06] VITALS: BP 130/72
[2021-03-26] MEDS: diphenhydrAMINE 25 MG TAB (BENADRYL) PO PRN (21:52)
[2021-03-27] VITALS (7 sets, daily range): BP systolic 107–140; BP diastolic 65–79
[2021-03-27] MEDS: HYDROmorphone PF INJECTION 40 MG in NS (IVPB) 96 ML IV SCH (04:28)
[2021-03-27] MEDS: polyethylene glycoL POWDER 17 GM (MIRALAX) PACK PO SCH (08:45)
[2021-03-27] MEDS: TAMOXIFEN 10 MG (NOLVADEX) TAB PO SCH (08:46)
[2021-03-27] MEDS: DOCUSATE SODIUM 100 MG (COLACE) CAP PO SCH ×2 (08:46→20:12)
[2021-03-27] MEDS: FAMOTIDINE 20 MG (PEPCID) TABLET PO SCH (08:46)
[2021-03-27] MEDS: ASPIRIN E.C. 81 MG (ECOTRIN) TAB PO SCH (08:46)
[2021-03-27] MEDS: PANTOPRAZOLE 40 MG (PROTONIX) TAB PO SCH (08:46)
[2021-03-27] MEDS: CYCLOBENZAPRINE 10 MG (FLEXERIL) TAB PO PRN ×2 (08:47→22:08)
--- NOTE | 2021-03-27 12:03 | Occupational Ther Daily Note ---
OT Current Status-Daily Note Subjective Pt asleep in bed when OT entered. Pt woke at call of name. Pt agreed to therapy. Pt reported increase in pain today due to radiation treatment. Pt requested to skip shower today due to pain. Mental Status/Objective Patient Orientation: Person, Place, Time, Situation Attachments: IV ADL-Treatment Pt requested to complete oral hygiene and washing of face. After set up, pt completed oral hygiene and grooming while laying in bed. Pt then requested to use bathroom. Nursing notified to assist with IV pole and due to increase pain. Pt transferred from supine to EOB with supervision. Pt at EOB and pain increased. Pt requested to use bed side commode. Pt SPT from EOB to commode with CGA. Pt completed toilet hygiene with supervision. Pt sit-stand with CGA from bedside commode. SPT from commode to EOB with CGA. Pt transferred from EOB to supine with min A to swing LE onto bed. After therapy pt, laying in bed. All needs met and call light in reach. Therapy Code Descriptions/Definitions Functional [place] Measure: 0=Not Assessed/NA 4=Minimal Assistance 1=Total Assistance 5=Supervision or Setup 2=Maximal Assistance 6=Modified [place] 3=Moderate Assistance 7=Complete IndependenceSCALE: Activities may be completed with or without assistive devices. 5-Qbqpfsvtwb-ewcnpym completes the activity by him/herself with no assistance from a helper. 5-Set-up or Clean-up Assistance-helper sets up or cleans up; patient completes activity. [place] assists only prior to or following the activity. 4-Supervision or Touching Assistance-helper provides verbal cues and/or touching/steadying and/or contact guard assistance as patient completes activity. Assistance may be provided throughout the activity or intermittently. 3-Partial/Moderate Assistance-helper does LESS THAN HALF the effort. [place] lifts, holds or supports trunk or limbs, but provides less than half the effort. 2-Substantial/Maximal Assistance-helper does MORE THAN HALF the effort. [place] lifts or holds trunk or limbs and provides more than half the effort. 1-Plleafvtc-ckiqdl does ALL the effort. Patient does none of the effort to complete the activity. Or, the assistance of 2 or more helpers is required for the patient to complete the activity. If activity was not attempted, code reason: 7-Patient Refused. 9-Not Applicable-not attempted and the patient did not perform the activity before the current illness, exacerbation or injury. 10-Not Attempted due to Environmental Limitations-(lack of equipment, weather restraints, etc.). 88-Not Attempted due to Medical Conditions or Safety Concerns. Education OT Patient Education: Correct positioning, Modified ADL techniques, Safety issues, Transfer techniques Teaching Recipient: Patient Teaching Methods: Demonstration, Discussion Response to Teaching: Verbalize Understanding, Return Demonstration OT Senior Living Goals Senior Living Goals Time Frame: Apr 05, 2021 Eating (QC): 6 Oral Hygiene (QC): 5 Toileting Hygiene (QC): 3 Shower/Bathe Self (QC): 3 Upper Body Dressing (QC): 5 Lower Body Dressing (QC): 3 On/Off Footwear (QC): 3 Additional Goals: 1-Demonstrate ADL Tasks, 2-Verbalize Understanding, 3- ImproveStrength/Radha 1=Demonstrate adherence to instructed precautions during ADL tasks. 2=Patient will verbalize/demonstrate understanding of assistive devices/modifications for ADL. 3=Patient will improve strength/tolerance for activity to enable patient to perform ADL's. OT Education/Plan Problem List/Assessment Assessment: Decreased Activ Tolerance, Decreased UE Strength, Impaired Self- Care Skills Pt would benefit from skilled OT services in order to increase safety and independence with ADLs, education on AE for LE dressing in order to minimize pain, and activity modification education. Discharge Recommendations Plan/Recommendations: Continue POC Treatment Plan/Plan of Care Patient would benefit from OT for education, treatment and training to promote independence in ADL's, mobility, safety and/or upper extremity function for ADL's. Plan of Care: ADL Retraining, Functional Mobility, UE Funct Exercise/Act Treatment Duration: Apr 05, 2021 Frequency: 5 times per week Estimated Hrs Per Day: .25 hour per day Rehab Potential: Guarded Time/GCodes Start Time: 09:30 Stop Time: 09:50 Total Time Billed (hr/min): 20 Billed Treatment Time 1 visit - ADL 1 (20 mins) MALAHTI LLOYD Mar 27, 2021 12:03
--- NOTE | 2021-03-27 13:17 | Physical Therapy Progress Note ---
Therapy Progress Note Attempted to see patient x 2. She politely refused each time due to back pain. Reports she tried to get up to use the BSC a little while ago and couldn't due to pain. Will attempt again tomorrow and progress per patient tolerance. ALEXANDRO SNIDER PT Mar 27, 2021 13:17
[2021-03-27] MEDS: NS IV 1000 ML 1,000 ML IV SCH (14:10)
--- NOTE | 2021-03-27 16:40 | Progress Note ---
Progress Note Assessment/Plan Date Seen by Provider: Mar 27, 2021 Time Seen by Provider: 16:36 Events since last exam Pt is off Decadron. Will start changing TECHNICAL CLERK to oral long acting Oxycontin in the next few days. She has 7 more doses of radiation to finish the course. Assessment/Plan A/P: 1. 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 T9 spine lesion risk of cord compression. Right acetabulum lesion risk of pathological fracture. 2. Intractable pain from the bone mets. Has been Oxycodone and Fentanyl patch at home and still rate pain 10/10. She needed 8mg morphine IV at the clinic in order to calm down her pain. She is doing much better with TECHNICAL CLERK dilaudid. 3. Dizziness when she turns her head. Resolved. Plan: 1. Radiation to radiate T9 and right hip lesion. Plan 23 radiation treatments, 7 more dose to finish the course if no additional boost per radiation oncologist Dr Zuñiga. 2. Converting the TECHNICAL CLERK to oral Oxycontin. 4. Pepcid 20mg bid PO while on steroid. Protonix added by PCP Dr Martin yesterday due to stomach upset 5. Continue oral tamoxifen 20mg daily and will start Faslodex once she is done with the radiation. . 6. Constipation prophylaxis. 7. Physical and occupational therapy Vitals Last set of Vitals Signs Vital Signs Date Time Temp Pulse Resp B/P (MAP) Pulse Ox O2 Delivery O2 Flow Rate FiO2 03/27/21 15:38 37.0 114 22 115/68 (84) 96 Room Air I&O I&O Intake and Output 03/27/21 00:00 Intake Total 1458 ml Output Total 2650 ml Balance -1192 ml Intake Oral 1458 ml Output Urine Total 2650 ml Labs Microbiology 03/13/21 MRSA Screen - Final, Complete MRSA not isolated JEZ LAWLER MD Mar 27, 2021 16:40
[2021-03-27] MEDS: HYDROmorphone PF INJECTION 20 MG in NS (IVPB) 100 ML IV PRN (20:01)
[2021-03-27] MEDS: oxyCODONE ER 40 MG (oxyCONTIN CR) TAB PO SCH (20:12)
[2021-03-28] MEDS: NS IV 1000 ML 1,000 ML IV SCH (01:51)
[2021-03-28] MEDS: ACETAMINOPHEN 325 MG TABLET PO PRN ×2 (03:39→20:01)
[2021-03-28 03:51] VITALS: BP 109/65
[2021-03-28 07:35] VITALS: BP 120/68
--- NOTE | 2021-03-28 08:55 | Progress Note ---
Subjective Date Seen by a Provider: Mar 28, 2021 Time Seen by a Provider: 06:40 Subjective/Events-last exam Beginning the weining process from CARTOGRAPHY TEACHER pump. Still going through PT/OT. Having constipation still Objective Exam Vital Signs Date Time Temp Pulse Resp B/P (MAP) Pulse Ox O2 Delivery O2 Flow Rate FiO2 03/28/21 07:35 35.9 107 20 120/68 (85) 94 Room Air 03/28/21 06:25 20 03/28/21 05:00 37.0 03/28/21 04:14 115 03/28/21 03:51 38.3 123 20 109/65 (80) 95 Room Air 03/28/21 03:39 38.3 03/27/21 23:45 36.8 107 16 115/69 (84) 95 Room Air 03/27/21 21:25 37.0 03/27/21 21:25 37.0 03/27/21 20:05 Room Air 03/27/21 20:00 37.0 109 20 107/66 (80) 95 Room Air 03/27/21 15:38 37.0 114 22 115/68 (84) 96 Room Air 03/27/21 11:50 36.6 110 20 111/71 (84) 98 Room Air I & O 03/28/21 07:00 Intake Total 1921 ml Output Total 2050 ml Balance -129 ml Capillary Refill : Less Than 3 Seconds General Appearance: No Apparent Distress Respiratory: Lungs Clear Cardiovascular: Regular Rate, Rhythm Gastrointestinal: soft; No guarding, No rebound; tenderness (slight) Results Lab Microbiology 03/13/21 MRSA Screen - Final, Complete MRSA not isolated Assessment/Plan Assessment/Plan Assess & Plan/Chief Complaint 1. 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 Intractable pain due to the metastasis -Dilaudid CARTOGRAPHY TEACHER pump 03/14 -CARTOGRAPHY TEACHER pump otherwise no change 03/15 -CARTOGRAPHY TEACHER pump still available 03/18 -still requiring CARTOGRAPHY TEACHER pump as scheduled 03/21 -Will DC Johnson catheter since her pain level has improved and she can now go to the bathroom herself most likely 03/25 -switch to po long acting pain meds this week. 3. Nutritional status -check CMP as well as check her weight weekly. 03/15 -protein and albumin stable -Her weight is pending 4. Dyspepsia -on pepcid and protonix 5. HTN-history of -she is currently stable with bp 6. Constipation most likely due to inactivity as well as narcotic usage GLADIS GRIGGS MD Mar 28, 2021 08:55
[2021-03-28] MEDS: PANTOPRAZOLE 40 MG (PROTONIX) TAB PO SCH (09:19)
[2021-03-28] MEDS: DOCUSATE SODIUM 100 MG (COLACE) CAP PO SCH ×2 (09:19→21:31)
[2021-03-28] MEDS: ASPIRIN E.C. 81 MG (ECOTRIN) TAB PO SCH (09:19)
[2021-03-28] MEDS: oxyCODONE ER 40 MG (oxyCONTIN CR) TAB PO SCH ×2 (09:20→21:31)
[2021-03-28] MEDS: polyethylene glycoL POWDER 17 GM (MIRALAX) PACK PO SCH (09:20)
[2021-03-28] MEDS: FAMOTIDINE 20 MG (PEPCID) TABLET PO SCH (09:20)
[2021-03-28] MEDS: TAMOXIFEN 10 MG (NOLVADEX) TAB PO SCH (09:20)
[2021-03-28] MEDS: CYCLOBENZAPRINE 10 MG (FLEXERIL) TAB PO PRN ×2 (09:24→23:14)
--- NOTE | 2021-03-28 11:29 | Occupational Ther Daily Note ---
OT Current Status-Daily Note Subjective Pt alert, laying in bed when OT entered. Pt agreed to therapy. Pt reported feeling tired today and pain self Mental Status/Objective Patient Orientation: Person, Place, Time, Situation Attachments: IV ADL-Treatment Therapy Code Descriptions/Definitions Functional [place] Measure: 0=Not Assessed/NA 4=Minimal Assistance 1=Total Assistance 5=Supervision or Setup 2=Maximal Assistance 6=Modified [place] 3=Moderate Assistance 7=Complete IndependenceSCALE: Activities may be completed with or without assistive devices. 0-Gpatkmllfb-zdrfgcn completes the activity by him/herself with no assistance from a helper. 5-Set-up or Clean-up Assistance-helper sets up or cleans up; patient completes activity. [place] assists only prior to or following the activity. 4-Supervision or Touching Assistance-helper provides verbal cues and/or touching/steadying and/or contact guard assistance as patient completes activity. Assistance may be provided throughout the activity or intermittently. 3-Partial/Moderate Assistance-helper does LESS THAN HALF the effort. [place] lifts, holds or supports trunk or limbs, but provides less than half the effort. 2-Substantial/Maximal Assistance-helper does MORE THAN HALF the effort. [place] lifts or holds trunk or limbs and provides more than half the effort. 0-Qtpjyttrg-zybkfb does ALL the effort. Patient does none of the effort to complete the activity. Or, the assistance of 2 or more helpers is required for the patient to complete the activity. If activity was not attempted, code reason: 7-Patient Refused. 9-Not Applicable-not attempted and the patient did not perform the activity before the current illness, exacerbation or injury. 10-Not Attempted due to Environmental Limitations-(lack of equipment, weather restraints, etc.). 88-Not Attempted due to Medical Conditions or Safety Concerns. Other Treatment Skilled instruction required of red BUE theraband exercises. Pt completed x1 set of 10 reps of BUE red theraband exercises while laying in bed with HOB raised to increase BUE strength for improved endurance to complete ADLs. Pt required resting break resting break due to decreased activity tolerance and fatigue. After therapy, PT present in room to began PT session. All needs met and call light in reach. Education OT Patient Education: Energy conservation, Exercise program, Home exercise program, Progress toward Goal/Update tx plan Teaching Recipient: Patient Teaching Methods: Demonstration, Discussion Response to Teaching: Verbalize Understanding, Return Demonstration OT Returned Telephone Equipment Appraiser Goals Senior Living Goals Time Frame: Apr 05, 2021 Eating (QC): 6 Oral Hygiene (QC): 5 Toileting Hygiene (QC): 3 Shower/Bathe Self (QC): 3 Upper Body Dressing (QC): 5 Lower Body Dressing (QC): 3 On/Off Footwear (QC): 3 Additional Goals: 1-Demonstrate ADL Tasks, 2-Verbalize Understanding, 3-ImproveStrength/Radha 1=Demonstrate adherence to instructed precautions during ADL tasks. 2=Patient will verbalize/demonstrate understanding of assistive devices/modifications for ADL. 3=Patient will improve strength/tolerance for activity to enable patient to perform ADL's. OT Education/Plan Problem List/Assessment Pt would benefit from skilled OT services in order to increase safety and independence with ADLs, education on AE for LE dressing in order to minimize pain, and activity modification education. Discharge Recommendations Plan/Recommendations: Continue POC Treatment Plan/Plan of Care Patient would benefit from OT for education, treatment and training to promote independence in ADL's, mobility, safety and/or upper extremity function for ADL's. Plan of Care: ADL Retraining, Functional Mobility, UE Funct Exercise/Act Treatment Duration: Apr 05, 2021 Frequency: 5 times per week Estimated Hrs Per Day: .25 hour per day Rehab Potential: Guarded Time/GCodes Start Time: 09:45 Stop Time: 10:50 Total Time Billed (hr/min): 15 Billed Treatment Time 1 visit - EX 1 (15 mins) MALATHI LLOYD Mar 28, 2021 11:29
[2021-03-28 11:38] VITALS: BP 122/75
--- NOTE | 2021-03-28 13:00 | Physical Therapy Rehab Re-Cert ---
PT Re-Certification Form Physical Therapy Treatment Plan: Continue Plan of Care Bed Mobility, Education, Functional Activity Radha, Functional Strength, Gait, Safety, Therapeutic Exercise, Transfers Frequency: 6 times per week Estimated Hrs Per Day: .25 hour per day Patient and/or Family Agrees t: Yes Rehab Potential: Fair PT [place] Goals [place] Goals PT Intermediate Goals Time Frame: Apr 06, 2021 Roll Left & Right (QC): 4 (MET) Sit to Lying (QC): 4 (MET) Lying-Sitting on Side/Bed(QC): 4 (MET) Sit to Stand (QC): 4 Chair/Iod-dd-Xbeme Xfer(QC): 4 Toilet Transfer (QC): 4 Car Transfer (QC): 4 Does the Patient Walk: No and Walking Goal IS indicated Walk 10 feet (QC): 3 (MET) Walk 50ft with 2 Turns (QC): 88 Walk 150 ft (QC): 88 Walking 10ft on Uneven Surface: 88 1 Step (curb) (QC): 9 4 Steps (QC): 9 12 Steps (QC): 9 Picking up an Object (QC): 88 Wheel 50 feet with 2 turns (QC: 88 Type: N/A Wheel 150 feet: 88 Type: N/A ALEXANDRO SNIDER PT Mar 28, 2021 13:00
--- NOTE | 2021-03-28 13:09 | Physical Therapy Daily Note ---
PT Daily Note-Current Subjective Patient lying supine in bed upon PT arrival, agreeable to treatment. Rates her pain at 4/10 in her back. Initially does not want to get out of bed, however after educating patient on the benefits of activity, she states "I know I need to, just comfortable now and don't want to get up." Transfers SCALE: Activities may be completed with or without assistive devices. 4-Hvxaqnaylq-kyhryzw completes the activity by him/herself with no assistance from a helper. 5-Set-up or Clean-up Assistance-helper sets up or cleans up; patient completes activity. [place] assists only prior to or following the activity. 4-Supervision or Touching Assistance-helper provides verbal cues and/or touching/steadying and/or contact guard assistance as patient completes activity. Assistance may be provided throughout the activity or intermittently. 3-Partial/Moderate Assistance-helper does LESS THAN HALF the effort. [place] lift s, holds or supports trunk or limbs, but provides less than half the effort. 2-Substantial/Maximal Assistance-helper does MORE THAN HALF the effort. [place] lifts or holds trunk or limbs and provides more than half the effort. 3-Lzuclotni-uesfri does ALL the effort. Patient does none of the effort to complete the activity. Or, the assistance of 2 or more helpers is required for the patient to complete the activity. If activity was not attempted, code reason: 7-Patient Refused. 9-Not Applicable-not attempted and the patient did not perform the activity before the current illness, exacerbation or injury. 10-Not Attempted due to Environmental Limitations-(lack of equipment, weather restraints, etc.). 88-Not Attempted due to Medical Conditions or Safety Concerns. Roll Left & Right (QC): 5 Sit to Lying (QC): 5 Lying to Sitting/Side of Bed(Q: 5 Sit to Stand (QC): 4 Chair/Emw-jq-Odhkv Xfer(QC): 4 Toilet Transfer (QC): 4 Weight Bearing Right Lower Extremity: Right Weight Bearing/Tolerated Gait Training Does the Patient Walk?: Yes Distance: 50 feet Walk 10 feet (QC): 4 Walk 50 ft with 2 Turns(QC): 4 Gait Assistive Device: FWW Assessment Current Status: Good Progress Patient tolerated treatment well. Demonstrates minimal overall improvement in bed mobility and transfers. Patient ambulates 50 feet with FWW, with CGA and verbal cues for safety, progression, posture. Patient ambulates into the [place] and is able to turn without any loss of balance. Patient to the BR and was able to perform all hygiene independently. Patient ambulates to the chair post treatment, with call light, all needs met, nursing notified. PT Sales Performance Manager Goals Detention Goals PT Detention Goals Time Frame: Apr 06, 2021 Roll Left & Right (QC): 4 (MET) Sit to Lying (QC): 4 (MET) Lying-Sitting on Side/Bed(QC): 4 (MET) Sit to Stand (QC): 4 Chair/Scc-zu-Jlxsi Xfer(QC): 4 Toilet Transfer (QC): 4 Car Transfer (QC): 4 Does the Patient Walk: No and Walking Goal IS indicated Walk 10 feet (QC): 3 (MET) Walk 50ft with 2 Turns (QC): 88 Walk 150 ft (QC): 88 Walking 10ft on Uneven Surface: 88 1 Step (curb) (QC): 9 4 Steps (QC): 9 12 Steps (QC): 9 Picking up an Object (QC): 88 Wheel 50 feet with 2 turns (QC: 88 Type: N/A Wheel 150 feet: 88 Type: N/A PT Plan Treatment/Plan Treatment Plan: Continue Plan of Care Treatment Plan: Bed Mobility, Education, Functional Activity Radha, Functional Strength, Gait, Safety, Therapeutic Exercise, Transfers Treatment Duration: Apr 06, 2021 Frequency: 6 times per week Estimated Hrs Per Day: .25 hour per day Patient and/or Family Agrees t: Yes Safety Risks/Education Patient Education: Gait Training Teaching Recipient: Patient Teaching Methods: Demonstration Response to Teaching: Verbalize Understanding Time/GCodes Time In: 1050 Time Out: 1105 Total Billed Treatment Time: 15 Total Billed Treatment Visit, Gait ALEXANDRO SNIDER PT Mar 28, 2021 13:09
[2021-03-28 15:29] VITALS: BP 108/64
[2021-03-28 19:51] VITALS: BP 102/62
[2021-03-28 20:31] LABS: BASOPHILS % (AUTO) 0 % (0-10); EOSINOPHILS # (AUTO) 0.1 10^3/uL (0.0-0.3); EOSINOPHILS % (AUTO) 2 % (0-10); HEMATOCRIT 34 % (35-52); HEMOGLOBIN 11.3 g/dL (11.5-16.0); LYMPHOCYTES # (AUTO) 0.5 10^3/uL (1.0-4.0); LYMPHOCYTES % (AUTO) 7 % (12-44); MEAN CORPUSCULAR HEMOGLOBIN 32 pg (25-34); MEAN CORPUSCULAR HGB CONC 33 g/dL (32-36); MEAN CORPUSCULAR VOLUME 97 fL (80-99); MEAN PLATELET VOLUME 8.6 fL (9.0-12.2); MONOCYTES # (AUTO) 0.4 10^3/uL (0.0-1.0); MONOCYTES % (AUTO) 5 % (0-12); NEUTROPHILS # (AUTO) 6.3 10^3/uL (1.8-7.8); NEUTROPHILS % (AUTO) 85 % (42-75); PLATELET COUNT 222 10^3/uL (130-400); WHITE BLOOD COUNT 7.4 10^3/uL (4.3-11.0)
[2021-03-28 20:53] LABS: ALBUMIN 2.9 GM/DL (3.2-4.5); BILIRUBIN,TOTAL 0.6 MG/DL (0.1-1.0); CALCIUM 8.5 MG/DL (8.5-10.1); CREATININE SERUM 0.63 MG/DL (0.60-1.30); TOTAL PROTEIN 5.8 GM/DL (6.4-8.2)
[2021-03-28 21:29] LABS: EOSINOPHILS % (MANUAL) 1 %; LYMPHOCYTES % (MANUAL) 8 %; MONOCYTES % (MANUAL) 5 %; NEUTROPHILS % (MANUAL) 86 %; RBC MORPH NORMAL
[2021-03-28 23:18] LABS: BILIRUBIN,URINE NEGATIVE (NEGATIVE); CLARITY,URINE CLOUDY; COLOR,URINE YELLOW; GLUCOSE, URINE (UA) NEGATIVE (NEGATIVE); KETONES,URINE NEGATIVE (NEGATIVE); LEUKOCYTE ESTERASE ,URINE 2+ (NEGATIVE); NITRITE,URINE POSITIVE (NEGATIVE); PROTEIN,URINE 1+ (NEGATIVE)
[2021-03-28 23:26] LABS: BACTERIA,URINE LARGE /HPF; WBC,URINE >100 /HPF
[2021-03-28 23:59] VITALS: BP 106/75
[2021-03-29] VITALS (7 sets, daily range): BP systolic 100–130; BP diastolic 61–88
[2021-03-29] MEDS: cefTRIAXone 1,000 MG in WATER (STERILE) FOR INJECTION 10 ML IV SCH ×2 (00:30→23:16)
[2021-03-29] MEDS: ACETAMINOPHEN 325 MG TABLET PO PRN ×2 (05:43→16:48)
[2021-03-29] MEDS: HYDROmorphone PF INJECTION 20 MG in NS (IVPB) 100 ML IV PRN (06:29)
--- NOTE | 2021-03-29 07:39 | Progress Note ---
Subjective Date Seen by a Provider: Mar 29, 2021 Time Seen by a Provider: 06:25 Subjective/Events-last exam patient is now voiced feeling bad other than just tired. She still has not had bowel movement. Last evening she was found to have slightly increased heart rate. She was given antibioticsfor urinary tract infection Objective Exam Vital Signs Date Time Temp Pulse Resp B/P (MAP) Pulse Ox O2 Delivery O2 Flow Rate FiO2 03/29/21 06:31 37.6 03/29/21 06:05 17 03/29/21 05:43 38.6 03/29/21 05:41 38.6 117 17 130/65 (86) 98 Room Air 03/28/21 23:59 36.1 114 17 106/75 (85) 96 Room Air 03/28/21 21:25 37.0 03/28/21 20:57 37.0 128 93 03/28/21 20:01 37.8 03/28/21 20:00 Room Air 03/28/21 19:51 37.8 134 24 102/62 (75) 93 Room Air 03/28/21 18:00 20 03/28/21 15:29 37.9 111 20 108/64 (79) 97 Room Air 03/28/21 11:38 36.6 114 20 122/75 (91) 95 Room Air 03/28/21 08:00 95 Room Air I & O 03/29/21 07:00 Intake Total 1960 ml Output Total 700 ml Balance 1260 ml Capillary Refill : Less Than 3 Seconds General Appearance: No Apparent Distress HEENT: Moist Mucous Membranes Neck: Supple Respiratory: Lungs Clear Cardiovascular: Regular Rate, Rhythm Gastrointestinal: soft; No guarding, No rebound; tenderness (mild) Results Lab Laboratory Tests 03/28/21 20:21: White Blood Count 7.4, Red Blood Count 3.56L, Hemoglobin 11.3L, Hematocrit 34L, Mean Corpuscular Volume 97, Mean Corpuscular Hemoglobin 32, Mean Corpuscular Hemoglobin Concent 33, Red Cell Distribution Width 15.2H, Platelet Count 222, Mean Platelet Volume 8.6L, Immature Granulocyte % (Auto) 1, Neutrophils (%) (Auto) 85H, Lymphocytes (%) (Auto) 7L, Monocytes (%) (Auto) 5, Eosinophils (%) (Auto) 2, Basophils (%) (Auto) 0, Neutrophils # (Auto) 6.3, Lymphocytes # (Auto) 0.5L, Monocytes # (Auto) 0.4, Eosinophils # (Auto) 0.1, Basophils # (Auto) 0.0, Immature Granulocyte # (Auto) 0.1, Neutrophils % (Manual) 86, Lymphocytes % (Manual) 8, Monocytes % (Manual) 5, Eosinophils % (Manual) 1, Blood Morphology Comment NORMAL, Sodium Level 132L, Potassium Level 4.0, Chloride Level 100, Carbon Dioxide Level 23, Anion Gap 9, Blood Urea Nitrogen 14, Creatinine 0.63, Estimat Glomerular Filtration Rate 95, BUN/Creatinine Ratio 22, Glucose Level 128H, Calcium Level 8.5, Corrected Calcium 9.4, Total Bilirubin 0.6, Aspartate Amino Transf (AST/SGOT) 14, Alanine Aminotransferase (ALT/SGPT) 22, Alkaline Phosphatase 114, Total Protein 5.8L, Albumin 2.9L 03/28/21 23:10: Urine Color YELLOW, Urine Clarity CLOUDY, Urine pH 6.0, Urine Specific [place] 1.010L, Urine Protein 1+H, Urine Glucose (UA) NEGATIVE, Urine Ketones NEGATIVE, Urine Nitrite POSITIVEH, Urine Bilirubin NEGATIVE, Urine Urobilinogen 0.2, Urine Leukocyte Esterase 2+H, Urine RBC (Auto) 2+H, Urine RBC 10-25H, Urine WBC >100H, Urine Squamous Epithelial Cells 2-5, Urine Crystals NONE, Urine Bacteria LARGEH, Urine Casts NONE, Urine Mucus NEGATIVE, Urine Culture Indicated YES Microbiology 03/13/21 MRSA Screen - Final, Complete MRSA not isolated Assessment/Plan Assessment/Plan Assess & Plan/Chief Complaint 1. 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 Intractable pain due to the metastasis -Dilaudid INTAKE MAN pump 03/14 -INTAKE MAN pump otherwise no change 03/15 -INTAKE MAN pump still available 03/18 -still requiring INTAKE MAN pump as scheduled 03/21 -Will DC Johnson catheter since her pain level has improved and she can now go to the bathroom herself most likely 03/25 -switch to po long acting pain meds this week. 3. Nutritional status -check CMP as well as check her weight weekly. 03/15 -protein and albumin stable -Her weight is pending 4. Dyspepsia -on pepcid and protonix 5. HTN-history of -she is currently stable with bp 6. Constipation most likely due to inactivity as well as narcotic usage 03/29 -Patient may need enema today 7. Urinary tract infection diagnosed March 28 -currently on ceftriaxone 1 g daily -Urine culture pending GLADIS GRIGGS MD Mar 29, 2021 07:39
[2021-03-29] MEDS: ASPIRIN E.C. 81 MG (ECOTRIN) TAB PO SCH (09:13)
[2021-03-29] MEDS: DOCUSATE SODIUM 100 MG (COLACE) CAP PO SCH ×2 (09:13→20:13)
[2021-03-29] MEDS: oxyCODONE ER 40 MG (oxyCONTIN CR) TAB PO SCH ×2 (09:14→20:14)
[2021-03-29] MEDS: FAMOTIDINE 20 MG (PEPCID) TABLET PO SCH (09:14)
[2021-03-29] MEDS: polyethylene glycoL POWDER 17 GM (MIRALAX) PACK PO SCH (09:14)
[2021-03-29] MEDS: TAMOXIFEN 10 MG (NOLVADEX) TAB PO SCH (09:14)
[2021-03-29] MEDS: PANTOPRAZOLE 40 MG (PROTONIX) TAB PO SCH (09:16)
[2021-03-29] MEDS: NS IV 1000 ML 1,000 ML IV SCH (10:55)
--- NOTE | 2021-03-29 11:54 | Occupational Ther Daily Note ---
OT Current Status-Daily Note Subjective Pt alert, sitting at recliner when OT entered. Pt agreed to therapy. Pt stated she took a shower today and was able to do it all by herself. No c/o pain reported. Mental Status/Objective Patient Orientation: Person, Place, Time, Situation ADL-Treatment Pt reported she already had shower today and was able to cleanse herself independently. Pt requested to complete oral hygiene/grooming task. After set up, pt completed oral hygiene/washing of face while seated in recliner due to decreased activity tolerance and fatigue. After session, nursing in room. All needs met and call light in reach. Therapy Code Descriptions/Definitions Functional [place] Measure: 0=Not Assessed/NA 4=Minimal Assistance 1=Total Assistance 5=Supervision or Setup 2=Maximal Assistance 6=Modified [place] 3=Moderate Assistance 7=Complete IndependenceSCALE: Activities may be completed with or without assistive devices. 1-Omqyrruvwq-qiatnzl completes the activity by him/herself with no assistance from a helper. 5-Set-up or Clean-up Assistance-helper sets up or cleans up; patient completes activity. [place] assists only prior to or following the activity. 4-Supervision or Touching Assistance-helper provides verbal cues and/or touching/steadying and/or contact guard assistance as patient completes activity. Assistance may be provided throughout the activity or intermittently. 3-Partial/Moderate Assistance-helper does LESS THAN HALF the effort. [place] lifts, holds or supports trunk or limbs, but provides less than half the effort. 2-Substantial/Maximal Assistance-helper does MORE THAN HALF the effort. [place] lifts or holds trunk or limbs and provides more than half the effort. 3-Vhlcqqvcz-pzreib does ALL the effort. Patient does none of the effort to complete the activity. Or, the assistance of 2 or more helpers is required for the patient to complete the activity. If activity was not attempted, code reason: 7-Patient Refused. 9-Not Applicable-not attempted and the patient did not perform the activity before the current illness, exacerbation or injury. 10-Not Attempted due to Environmental Limitations-(lack of equipment, weather restraints, etc.). 88-Not Attempted due to Medical Conditions or Safety Concerns. Education OT Patient Education: Correct positioning, Purpose of tx/functional activities Teaching Recipient: Patient Teaching Methods: Demonstration, Discussion Response to Teaching: Verbalize Understanding, Return Demonstration OT Jail Goals Jail Goals Time Frame: Apr 05, 2021 Eating (QC): 6 Oral Hygiene (QC): 5 Toileting Hygiene (QC): 3 Shower/Bathe Self (QC): 3 Upper Body Dressing (QC): 5 Lower Body Dressing (QC): 3 On/Off Footwear (QC): 3 Additional Goals: 1-Demonstrate ADL Tasks, 2-Verbalize Understanding, 3-ImproveStrength/Radha 1=Demonstrate adherence to instructed precautions during ADL tasks. 2=Patient will verbalize/demonstrate understanding of assistive devices/modifications for ADL. 3=Patient will improve strength/tolerance for activity to enable patient to perform ADL's. OT Education/Plan Problem List/Assessment Assessment: Decreased Activ Tolerance, Decreased UE Strength, Impaired Self- Care Skills Pt would benefit from skilled OT services in order to increase safety and independence with ADLs, education on AE for LE dressing in order to minimize pain, and activity modification education. Discharge Recommendations Plan/Recommendations: Continue POC Treatment Plan/Plan of Care Patient would benefit from OT for education, treatment and training to promote independence in ADL's, mobility, safety and/or upper extremity function for ADL's. Plan of Care: ADL Retraining, Functional Mobility, UE Funct Exercise/Act Treatment Duration: Apr 05, 2021 Frequency: 5 times per week Estimated Hrs Per Day: .25 hour per day Rehab Potential: Fair Time/GCodes Start Time: 11:26 Stop Time: 11:40 Total Time Billed (hr/min): 15 Billed Treatment Time 1 visit- ADL (15 mins) MALATHI LLOYD Mar 29, 2021 11:54
--- NOTE | 2021-03-29 15:41 | Physical Therapy Daily Note ---
PT Daily Note-Current Subjective Patient states "I'm feeling pretty good today." Rates pain at 4/10 in her back. Transfers SCALE: Activities may be completed with or without assistive devices. 0-Tlkpqomskq-lskczws completes the activity by him/herself with no assistance from a helper. 5-Set-up or Clean-up Assistance-helper sets up or cleans up; patient completes activity. [place] assists only prior to or following the activity. 4-Supervision or Touching Assistance-helper provides verbal cues and/or touching/steadying and/or contact guard assistance as patient completes activity. Assistance may be provided throughout the activity or intermittently. 3-Partial/Moderate Assistance-helper does LESS THAN HALF the effort. [place] lifts, holds or supports trunk or limbs, but provides less than half the effort. 2-Substantial/Maximal Assistance-helper does MORE THAN HALF the effort. [place] lifts or holds trunk or limbs and provides more than half the effort. 0-Ftmburyst-fvpsrx does ALL the effort. Patient does none of the effort to complete the activity. Or, the assistance of 2 or more helpers is required for the patient to complete the activity. If activity was not attempted, code reason: 7-Patient Refused. 9-Not Applicable-not attempted and the patient did not perform the activity before the current illness, exacerbation or injury. 10-Not Attempted due to Environmental Limitations-(lack of equipment, weather restraints, etc.). 88-Not Attempted due to Medical Conditions or Safety Concerns. Roll Left & Right (QC): 5 Sit to Lying (QC): 5 Lying to Sitting/Side of Bed(Q: 5 Sit to Stand (QC): 4 Chair/Vts-dx-Ulrbz Xfer(QC): 4 Weight Bearing Right Lower Extremity: Right Weight Bearing/Tolerated Gait Training Does the Patient Walk?: Yes Distance: 40 Walk 10 feet (QC): 4 Gait Assistive Device: FWW Assessment Current Status: Fair Progress Patient tolerated treatment well. Initially upon sitting at edge of bed patient reports increase in back pain. After sitting a few minutes, sharp pain subsides and patient is able to continue. Patient performs all bed mobility and transfers with CGA/SBA. Patient ambulates 40 feet with FWW, with CGA and verbal cues for safety, posture and conservation of energy. Patient in chair post treatment with all needs met, nursing notified, call light in hand. PT Usp Goals Usp Goals PT [employer] And [employer] Investigator Goals Time Frame: Apr 06, 2021 Roll Left & Right (QC): 4 (MET) Sit to Lying (QC): 4 (MET) Lying-Sitting on Side/Bed(QC): 4 (MET) Sit to Stand (QC): 4 Chair/Uzy-cm-Goomi Xfer(QC): 4 Toilet Transfer (QC): 4 Car Transfer (QC): 4 Does the Patient Walk: No and Walking Goal IS indicated Walk 10 feet (QC): 3 (MET) Walk 50ft with 2 Turns (QC): 88 Walk 150 ft (QC): 88 Walking 10ft on Uneven Surface: 88 1 Step (curb) (QC): 9 4 Steps (QC): 9 12 Steps (QC): 9 Picking up an Object (QC): 88 Wheel 50 feet with 2 turns (QC: 88 Type: N/A Wheel 150 feet: 88 Type: N/A PT Plan Treatment/Plan Treatment Plan: Continue Plan of Care Treatment Plan: Bed Mobility, Education, Functional Activity Radha, Functional Strength, Gait, Safety, Therapeutic Exercise, Transfers Treatment Duration: Apr 06, 2021 Frequency: 6 times per week Estimated Hrs Per Day: .25 hour per day Patient and/or Family Agrees t: Yes Safety Risks/Education Patient Education: Gait Training Teaching Recipient: Patient Teaching Methods: Demonstration, Discussion Response to Teaching: Verbalize Understanding, Return Demonstration Time/GCodes Time In: 1515 Time Out: 1535 Total Billed Treatment Time: 20 Total Billed Treatment Visit, Gait ALEXANDRO SNIDER PT Mar 29, 2021 15:41
[2021-03-29] MEDS: CYCLOBENZAPRINE 10 MG (FLEXERIL) TAB PO PRN (22:12)
[2021-03-30 03:34] VITALS: BP 107/59
[2021-03-30] MEDS: ACETAMINOPHEN 325 MG TABLET PO PRN ×2 (06:25→17:30)
[2021-03-30 08:00] VITALS: BP 116/78
[2021-03-30] MEDS: polyethylene glycoL POWDER 17 GM (MIRALAX) PACK PO SCH (08:43)
[2021-03-30] MEDS: DOCUSATE SODIUM 100 MG (COLACE) CAP PO SCH ×2 (08:43→19:55)
[2021-03-30] MEDS: ASPIRIN E.C. 81 MG (ECOTRIN) TAB PO SCH (08:43)
[2021-03-30] MEDS: PANTOPRAZOLE 40 MG (PROTONIX) TAB PO SCH (08:43)
[2021-03-30] MEDS: FAMOTIDINE 20 MG (PEPCID) TABLET PO SCH (08:44)
[2021-03-30] MEDS: TAMOXIFEN 10 MG (NOLVADEX) TAB PO SCH (08:44)
[2021-03-30] MEDS: oxyCODONE ER 40 MG (oxyCONTIN CR) TAB PO SCH ×2 (08:44→20:01)
--- NOTE | 2021-03-30 11:18 | Physical Therapy Daily Note ---
PT Daily Note-Current Subjective Pt is in bed, awake, and agreeable to treatment. Mental Status Patient Orientation: Person, Place, Time, Situation Attachments: IV Transfers SCALE: Activities may be completed with or without assistive devices. 1-Cfluitdouq-eoieaey completes the activity by him/herself with no assistance from a helper. 5-Set-up or Clean-up Assistance-helper sets up or cleans up; patient completes activity. [place] assists only prior to or following the activity. 4-Supervision or Touching Assistance-helper provides verbal cues and/or touching/steadying and/or contact guard assistance as patient completes activity. Assistance may be provided throughout the activity or intermittently. 3-Partial/Moderate Assistance-helper does LESS THAN HALF the effort. [place] lifts, holds or supports trunk or limbs, but provides less than half the effort. 2-Substantial/Maximal Assistance-helper does MORE THAN HALF the effort. [place] lifts or holds trunk or limbs and provides more than half the effort. 4-Xwtoknayt-zgvozg does ALL the effort. Patient does none of the effort to complete the activity. Or, the assistance of 2 or more helpers is required for the patient to complete the activity. If activity was not attempted, code reason: 7-Patient Refused. 9-Not Applicable-not attempted and the patient did not perform the activity before the current illness, exacerbation or injury. 10-Not Attempted due to Environmental Limitations-(lack of equipment, weather restraints, etc.). 88-Not Attempted due to Medical Conditions or Safety Concerns. Roll Left & Right (QC): 6 Sit to Lying (QC): 6 Lying to Sitting/Side of Bed(Q: 6 Sit to Stand (QC): 6 Weight Bearing Right Lower Extremity: Right Weight Bearing/Tolerated Gait Training Does the Patient Walk?: Yes Distance: 64ft Gait Persons Needed: 1 Gait Assistive Device: FWW Assessment Current Status: Good Progress Very fatigued by the end of treatment. Good stability throughout gait. PT Fisheries Biologist Goals Care Home Goals PT Fisheries Biologist Goals Time Frame: Apr 06, 2021 Roll Left & Right (QC): 4 (MET) Sit to Lying (QC): 4 (MET) Lying-Sitting on Side/Bed(QC): 4 (MET) Sit to Stand (QC): 4 Chair/Mmk-bs-Iexza Xfer(QC): 4 Toilet Transfer (QC): 4 Car Transfer (QC): 4 Does the Patient Walk: No and Walking Goal IS indicated Walk 10 feet (QC): 3 (MET) Walk 50ft with 2 Turns (QC): 88 Walk 150 ft (QC): 88 Walking 10ft on Uneven Surface: 88 1 Step (curb) (QC): 9 4 Steps (QC): 9 12 Steps (QC): 9 Picking up an Object (QC): 88 Wheel 50 feet with 2 turns (QC: 88 Type: N/A Wheel 150 feet: 88 Type: N/A PT Plan Treatment/Plan Treatment Plan: Continue Plan of Care Treatment Plan: Bed Mobility, Education, Functional Activity Radha, Functional Strength, Gait, Safety, Therapeutic Exercise, Transfers Treatment Duration: Apr 06, 2021 Frequency: 6 times per week Estimated Hrs Per Day: .25 hour per day Patient and/or Family Agrees t: Yes Time/GCodes Time In: 909 Time Out: 924 Total Billed Treatment Time: 15 Total Billed Treatment 1, gt 15 YOVANY BERNARD PT Mar 30, 2021 11:18
[2021-03-30 11:30] VITALS: BP 110/78
[2021-03-30] MEDS: HYDROmorphone PF INJECTION 20 MG in NS (IVPB) 100 ML IV PRN (11:36)
[2021-03-30 16:00] VITALS: BP 119/63
[2021-03-30] MEDS: NS IV 1000 ML 1,000 ML IV SCH ×2 (19:53→19:54)
[2021-03-30 20:00] VITALS: BP 109/64
[2021-03-30] MEDS: CYCLOBENZAPRINE 10 MG (FLEXERIL) TAB PO PRN (22:01)
[2021-03-30 23:26] VITALS: BP 109/56
[2021-03-30] MEDS: cefTRIAXone 1,000 MG in WATER (STERILE) FOR INJECTION 10 ML IV SCH (23:28)
[2021-03-31 04:40] VITALS: BP 119/68
[2021-03-31] MEDS: ACETAMINOPHEN 325 MG TABLET PO PRN ×2 (06:06→20:43)
[2021-03-31] MEDS: CYCLOBENZAPRINE 10 MG (FLEXERIL) TAB PO PRN ×2 (06:08→20:52)
[2021-03-31 08:10] VITALS: BP 125/75
[2021-03-31] MEDS: DOCUSATE SODIUM 100 MG (COLACE) CAP PO SCH ×2 (08:16→20:42)
[2021-03-31] MEDS: ASPIRIN E.C. 81 MG (ECOTRIN) TAB PO SCH (08:16)
[2021-03-31] MEDS: PANTOPRAZOLE 40 MG (PROTONIX) TAB PO SCH (08:16)
[2021-03-31] MEDS: TAMOXIFEN 10 MG (NOLVADEX) TAB PO SCH (08:17)
[2021-03-31] MEDS: oxyCODONE ER 40 MG (oxyCONTIN CR) TAB PO SCH ×2 (08:17→20:42)
[2021-03-31] MEDS: polyethylene glycoL POWDER 17 GM (MIRALAX) PACK PO SCH (08:17)
[2021-03-31] MEDS: FAMOTIDINE 20 MG (PEPCID) TABLET PO SCH (08:18)
[2021-03-31 11:55] VITALS: BP 109/66
[2021-03-31] MEDS: HYDROmorphone PF INJECTION 20 MG in NS (IVPB) 100 ML IV PRN (15:42)
[2021-03-31 16:06] VITALS: BP 124/74
[2021-03-31 20:08] VITALS: BP 116/79
[2021-03-31 23:26] VITALS: BP 118/67
[2021-03-31] MEDS: cefTRIAXone 1,000 MG in WATER (STERILE) FOR INJECTION 10 ML IV SCH (23:28)
[2021-04-01] MEDS: NS IV 1000 ML 1,000 ML IV SCH (01:32)
[2021-04-01 04:25] VITALS: BP 121/74
[2021-04-01] MEDS: HYDROmorphone 2 MG/ML VIAL (DILAUDID) IV PRN (04:39)
[2021-04-01] MEDS: CYCLOBENZAPRINE 10 MG (FLEXERIL) TAB PO PRN ×2 (04:39→17:03)
--- NOTE | 2021-04-01 06:47 | Progress Note ---
Subjective Date Seen by a Provider: Apr 01, 2021 Time Seen by a Provider: 06:35 Subjective/Events-last exam Has back and hip pain in evening time. Tolerating diet but appetite decreased. Objective Exam Vital Signs Date Time Temp Pulse Resp B/P (MAP) Pulse Ox O2 Delivery O2 Flow Rate FiO2 04/01/21 06:00 20 04/01/21 04:25 36.3 101 18 121/74 (90) 96 Room Air 03/31/21 23:26 36.2 119 18 118/67 (84) 95 Room Air 03/31/21 20:43 37.8 03/31/21 20:40 Room Air 03/31/21 20:08 37.8 126 18 116/79 (91) 95 Room Air 03/31/21 16:06 37.6 98 20 124/74 (91) 95 Room Air 03/31/21 11:55 36.4 65 22 109/66 (80) 95 Room Air 03/31/21 08:10 36.3 104 22 125/75 (92) 97 Room Air 03/31/21 08:00 97 Room Air I & O 04/01/21 07:00 Intake Total 2860 ml Output Total 1550 ml Balance 1310 ml Capillary Refill : Less Than 3 Seconds General Appearance: No Apparent Distress Neck: Supple Respiratory: Lungs Clear Cardiovascular: Regular Rate, Rhythm Results Lab Microbiology 03/28/21 Urine Culture - Final, Complete Escherichia coli 03/13/21 MRSA Screen - Final, Complete MRSA not isolated Assessment/Plan Assessment/Plan Assess & Plan/Chief Complaint 1. 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 Intractable pain due to the metastasis -Dilaudid CLOSED CIRCUIT SCREEN WATCHER pump 03/14 -CLOSED CIRCUIT SCREEN WATCHER pump otherwise no change 03/15 -CLOSED CIRCUIT SCREEN WATCHER pump still available 03/18 -still requiring CLOSED CIRCUIT SCREEN WATCHER pump as scheduled 03/21 -Will DC Johnson catheter since her pain level has improved and she can now go to the bathroom herself most likely 03/25 -switch to po long acting pain meds this week. 3. Nutritional status -check CMP as well as check her weight weekly. 03/15 -protein and albumin stable -Her weight is pending 04/01 -Check weight 4. Dyspepsia -on pepcid and protonix 5. HTN-history of -she is currently stable with bp 6. Constipation most likely due to inactivity as well as narcotic usage 03/29 -Patient may need enema today 7. Urinary tract infection diagnosed March 28 -currently on ceftriaxone 1 g daily -Urine culture pending 04/01 -E coli by urine culture -will switch to cephalexin 500 tid x 4 additional days GLADIS GRIGGS MD Apr 01, 2021 06:47
[2021-04-01 08:00] VITALS: BP 135/79
[2021-04-01] MEDS: polyethylene glycoL POWDER 17 GM (MIRALAX) PACK PO SCH (08:34)
[2021-04-01] MEDS: CEPHALEXIN 250 MG (KEFLEX) CAP PO SCH ×3 (08:34→21:39)
[2021-04-01] MEDS: oxyCODONE ER 40 MG (oxyCONTIN CR) TAB PO SCH ×2 (08:34→21:39)
[2021-04-01] MEDS: DOCUSATE SODIUM 100 MG (COLACE) CAP PO SCH ×2 (08:35→21:38)
[2021-04-01] MEDS: PANTOPRAZOLE 40 MG (PROTONIX) TAB PO SCH (08:35)
[2021-04-01] MEDS: FAMOTIDINE 20 MG (PEPCID) TABLET PO SCH (08:35)
[2021-04-01] MEDS: TAMOXIFEN 10 MG (NOLVADEX) TAB PO SCH (08:35)
[2021-04-01] MEDS: ASPIRIN E.C. 81 MG (ECOTRIN) TAB PO SCH (08:35)
--- NOTE | 2021-04-01 10:56 | Occupational Ther Daily Note ---
OT Current Status-Daily Note Subjective Pt on toilet when OT entered with nursing present in room. Pt agreed to therapy. No c/o pain reported. Pt reported feeling more tired this morning. Mental Status/Objective Patient Orientation: Person, Place, Time, Situation Attachments: IV ADL-Treatment Pt on toilet when OT enerted. Nursing reported pt ambulated well to bathroom. Pt completed toilet hygiene with supervision. Pt sit-stand from toilet to FWW with Min A due to increase in pain. Pt ambulated to room using FWW and transferred to recliner with CGA. After set up, pt completed oral hygiene/grooming of washing face while seated in recliner. After session, pt sitting in recliner. All needs met and call light in reach. Therapy Code Descriptions/Definitions Functional [place] Measure: 0=Not Assessed/NA 4=Minimal Assistance 1=Total Assistance 5=Supervision or Setup 2=Maximal Assistance 6=Modified [place] 3=Moderate Assistance 7=Complete IndependenceSCALE: Activities may be completed with or without assistive devices. 6-Wnefwityxx-fhxgvfg completes the activity by him/herself with no assistance from a helper. 5-Set-up or Clean-up Assistance-helper sets up or cleans up; patient completes activity. [place] assists only prior to or following the activity. 4-Supervision or Touching Assistance-helper provides verbal cues and/or touching/steadying and/or contact guard assistance as patient completes activity. Assistance may be provided throughout the activity or intermittently. 3-Partial/Moderate Assistance-helper does LESS THAN HALF the effort. [place] lifts, holds or supports trunk or limbs, but provides less than half the effort. 2-Substantial/Maximal Assistance-helper does MORE THAN HALF the effort. [place] lifts or holds trunk or limbs and provides more than half the effort. 5-Bxiuusawd-owredx does ALL the effort. Patient does none of the effort to complete the activity. Or, the assistance of 2 or more helpers is required for the patient to complete the activity. If activity was not attempted, code reason: 7-Patient Refused. 9-Not Applicable-not attempted and the patient did not perform the activity before the current illness, exacerbation or injury. 10-Not Attempted due to Environmental Limitations-(lack of equipment, weather restraints, etc.). 88-Not Attempted due to Medical Conditions or Safety Concerns. Education OT Patient Education: Correct positioning, Safety issues, Transfer techniques Teaching Recipient: Patient Teaching Methods: Demonstration, Discussion Response to Teaching: Verbalize Understanding, Return Demonstration OT Desk Pens Assembler Goals Jail Goals Time Frame: Apr 05, 2021 Eating (QC): 6 Oral Hygiene (QC): 5 Toileting Hygiene (QC): 3 Shower/Bathe Self (QC): 3 Upper Body Dressing (QC): 5 Lower Body Dressing (QC): 3 On/Off Footwear (QC): 3 Additional Goals: 1-Demonstrate ADL Tasks, 2-Verbalize Understanding, 3- ImproveStrength/Radha 1=Demonstrate adherence to instructed precautions during ADL tasks. 2=Patient will verbalize/demonstrate understanding of assistive dev ices/modifications for ADL. 3=Patient will improve strength/tolerance for activity to enable patient to perform ADL's. OT Education/Plan Problem List/Assessment Assessment: Decreased Activ Tolerance, Decreased UE Strength, Impaired Self- Care Skills Pt would benefit from skilled OT services in order to increase safety and independence with ADLs, education on AE for LE dressing in order to minimize pain, and activity modification education. Discharge Recommendations Plan/Recommendations: Continue POC Treatment Plan/Plan of Care Patient would benefit from OT for education, treatment and training to promote independence in ADL's, mobility, safety and/or upper extremity function for ADL's. Plan of Care: ADL Retraining, Functional Mobility, UE Funct Exercise/Act Treatment Duration: Apr 05, 2021 Frequency: 5 times per week Estimated Hrs Per Day: .25 hour per day Rehab Potential: Fair Time/GCodes Start Time: 10:35 Stop Time: 10:50 Total Time Billed (hr/min): 15 Billed Treatment Time 1 visit- ADL 1 (15 mins) MALATHI LLOYD Apr 01, 2021 10:56
[2021-04-01 12:00] VITALS: BP 109/68
--- NOTE | 2021-04-01 13:11 | Physical Therapy Daily Note ---
PT Daily Note-Current Subjective Patient rates pain at 4/10 in back and right hip. Agreeable to treatment. Mental Status Patient Orientation: Person, Place, Time, Situation Transfers SCALE: Activities may be completed with or without assistive devices. 4-Aaegolnrtu-qfqrahz completes the activity by him/herself with no assistance from a helper. 5-Set-up or Clean-up Assistance-helper sets up or cleans up; patient completes activity. [place] assists only prior to or following the activity. 4-Supervision or Touching Assistance-helper provides verbal cues and/or touching/steadying and/or contact guard assistance as patient completes activity. Assistance may be provided throughout the activity or intermittently. 3-Partial/Moderate Assistance-helper does LESS THAN HALF the effort. [place] lifts, holds or supports trunk or limbs, but provides less than half the effort. 2-Substantial/Maximal Assistance-helper does MORE THAN HALF the effort. [place] lifts or holds trunk or limbs and provides more than half the effort. 3-Lhjdnucqr-dbizuw does ALL the effort. Patient does none of the effort to complete the activity. Or, the assistance of 2 or more helpers is required for the patient to complete the activity. If activity was not attempted, code reason: 7-Patient Refused. 9-Not Applicable-not attempted and the patient did not perform the activity before the current illness, exacerbation or injury. 10-Not Attempted due to Environmental Limitations-(lack of equipment, weather restraints, etc.). 88-Not Attempted due to Medical Conditions or Safety Concerns. Sit to Stand (QC): 5 Chair/Yei-tr-Rxxnz Xfer(QC): 5 Toilet Transfer (QC): 5 Weight Bearing Right Lower Extremity: Right Weight Bearing/Tolerated Gait Training Does the Patient Walk?: Yes Distance: 150 feet Walk 10 feet (QC): 5 Walk 50 ft with 2 Turns(QC): 5 Walk 150 ft (QC): 5 Gait Assistive Device: FWW Exercises Seated Therapy Exercises: Ankle pumps, Long arc quads, Hip flexion, Hamstring Curls, Hip abd/add, Glut set Seated Reps: 20 Assessment Current Status: Good Progress Patient sitting in chair upon PT arrival. Patient performs all observed transfers with SBA. Patient ambulates 150 feet with FWW, with SBA and verbal cues for safety. Patient ambulates with improved gait pattern with increased stride length bilaterally, improved upright posture. Patient in chair post treatment with all needs met, nursing notified, call light in hand. PT Prison Goals Interventional Neuroradiologist Goals PT Prison Goals Time Frame: Apr 06, 2021 Roll Left & Right (QC): 4 (MET) Sit to Lying (QC): 4 (MET) Lying-Sitting on Side/Bed(QC): 4 (MET) Sit to Stand (QC): 4 Chair/Kqn-ar-Cdezh Xfer(QC): 4 Toilet Transfer (QC): 4 Car Transfer (QC): 4 Does the Patient Walk: No and Walking Goal IS indicated Walk 10 feet (QC): 3 (MET) Walk 50ft with 2 Turns (QC): 88 Walk 150 ft (QC): 88 Walking 10ft on Uneven Surface: 88 1 Step (curb) (QC): 9 4 Steps (QC): 9 12 Steps (QC): 9 Picking up an Object (QC): 88 Wheel 50 feet with 2 turns (QC: 88 Type: N/A Wheel 150 feet: 88 Type: N/A PT Plan Treatment/Plan Treatment Plan: Continue Plan of Care Treatment Plan: Bed Mobility, Education, Functional Activity Radha, Functional Strength, Gait, Safety, Therapeutic Exercise, Transfers Treatment Duration: Apr 06, 2021 Frequency: 6 times per week Estimated Hrs Per Day: .25 hour per day Patient and/or Family Agrees t: Yes Safety Risks/Education Patient Education: Gait Training Teaching Recipient: Patient, Family Teaching Methods: Demonstration, Discussion Response to Teaching: Verbalize Understanding, Return Demonstration Time/GCodes Time In: 1105 Time Out: 1128 Total Billed Treatment Time: 23 Total Billed Treatment Visit, Gait, EX ALEXANDRO SNIDER PT Apr 01, 2021 13:11
[2021-04-01] MEDS: HYDROmorphone PF INJECTION 20 MG in NS (IVPB) 100 ML IV PRN ×2 (15:29→23:00)
--- NOTE | 2021-04-01 15:32 | Progress Note ---
Progress Note Assessment/Plan Date Seen by Provider: Apr 01, 2021 Time Seen by Provider: 15:28 Events since last exam Pt is off Decadron. Pt is off Dilaudid INTERACTIVE MULTIMEDIA DESIGNER CI but still required 0.3mg bolus q 15mins over the last 8 hrs. She has more pain in the evening time. She has 5 more doses of radiation to finish the course. Assessment/Plan A/P: 1. 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 T9 spine lesion risk of cord compression. Right acetabulum lesion risk of pathological fracture. 2. Intractable pain from the bone mets. Has been Oxycodone and Fentanyl patch at home and still rate pain 03/17. She needed 8mg morphine IV at the clinic in order to calm down her pain. She is doing much better with INTERACTIVE MULTIMEDIA DESIGNER dilaudid. 3. Dizziness when she turns her head. Resolved. Plan: 1. Radiation to radiate T9 and right hip lesion. Plan 23 radiation treatments, 5 more dose to finish the course if no additional boost per radiation oncologist Dr Zuñiga. 2. Increase oral Oxycontin 40mg bid to tid. Add Oxycondon 5mg q2hr PRN breakthrough. Still keep INTERACTIVE MULTIMEDIA DESIGNER bolus as needed for now. 4. Continue Pepcid or protonix per Dr Martin's choice. 5. Continue oral tamoxifen 20mg daily and will start Faslodex once she is done with the radiation. . 6. Constipation prophylaxis. 7. Physical and occupational therapy. Assessment/Plan 1. Adenocarcinoma breast primary with metastasis to right hip and T9 -Admitted now to swing bed 03/14 -Receiving daily radiation therapy and tamoxifen 03/15 -Noted Dr Lawler's PN 03/21 -still receiving radiation therapy 03/25 -treatment continues 2. Intractable pain due to the metastasis -Dilaudid INTERACTIVE MULTIMEDIA DESIGNER pump 03/14 -INTERACTIVE MULTIMEDIA DESIGNER pump otherwise no change 03/15 -INTERACTIVE MULTIMEDIA DESIGNER pump still available 03/18 -still requiring INTERACTIVE MULTIMEDIA DESIGNER pump as scheduled 03/21 -Will DC Johnson catheter since her pain level has improved and she can now go to the bathroom herself most likely 03/25 -switch to po long acting pain meds this week. 3. Nutritional status -check CMP as well as check her weight weekly. 03/15 -protein and albumin stable -Her weight is pending 04/01 -Check weight 4. Dyspepsia -on pepcid and protonix 5. HTN-history of -she is currently stable with bp 6. Constipation most likely due to inactivity as well as narcotic usage 03/29 -Patient may need enema today 7. Urinary tract infection diagnosed March 28 -currently on ceftriaxone 1 g daily -Urine culture pending 04/01 -E coli by urine culture -will switch to cephalexin 500 tid x 4 additional days Vitals Last set of Vitals Signs Vital Signs Date Time Temp Pulse Resp B/P (MAP) Pulse Ox O2 Delivery O2 Flow Rate FiO2 04/01/21 12:00 36.5 134 18 109/68 (82) 93 Room Air I&O I&O Intake and Output 04/01/21 00:00 Intake Total 2010 ml Output Total 1250 ml Balance 760 ml Intake Oral 2000 ml IV Total 10 ml Output Urine Total 1250 ml # Bowel Movements 2 Labs Microbiology 03/28/21 Urine Culture - Final, Complete Escherichia coli 03/13/21 MRSA Screen - Final, Complete MRSA not isolated JEZ LAWLER MD Apr 01, 2021 15:32
[2021-04-01 15:57] VITALS: BP 104/75
[2021-04-01 19:58] VITALS: BP 112/75
[2021-04-02] VITALS (7 sets, daily range): BP systolic 105–125; BP diastolic 59–85
[2021-04-02] MEDS: oxyCODONE ER 40 MG (oxyCONTIN CR) TAB PO SCH ×3 (05:46→21:32)
[2021-04-02] MEDS: FAMOTIDINE 20 MG (PEPCID) TABLET PO SCH (08:45)
[2021-04-02] MEDS: PANTOPRAZOLE 40 MG (PROTONIX) TAB PO SCH (08:45)
[2021-04-02] MEDS: ASPIRIN E.C. 81 MG (ECOTRIN) TAB PO SCH (08:45)
[2021-04-02] MEDS: DOCUSATE SODIUM 100 MG (COLACE) CAP PO SCH ×3 (08:45→20:19)
[2021-04-02] MEDS: TAMOXIFEN 10 MG (NOLVADEX) TAB PO SCH (08:46)
[2021-04-02] MEDS: CEPHALEXIN 250 MG (KEFLEX) CAP PO SCH ×3 (08:46→20:18)
[2021-04-02] MEDS: polyethylene glycoL POWDER 17 GM (MIRALAX) PACK PO SCH (08:46)
[2021-04-02] MEDS: NS IV 1000 ML 1,000 ML IV SCH (10:19)
--- NOTE | 2021-04-02 11:19 | Physical Therapy Daily Note ---
PT Daily Note-Current Subjective Patient agrees to PT. Pain Numeric Pain Scale: 7 Location: Medial Location Body Site: Back Pain Description: Sharp Comment: with pain pill and INTERNATIONAL ACCOUNT MANAGER Mental Status Patient Orientation: Normal For Age Attachments: IV Transfers SCALE: Activities may be completed with or without assistive devices. 2-Hjfuikkvmz-ujhxase completes the activity by him/herself with no assistance from a helper. 5-Set-up or Clean-up Assistance-helper sets up or cleans up; patient completes activity. [place] assists only prior to or following the activity. 4-Supervision or Touching Assistance-helper provides verbal cues and/or touching/steadying and/or contact guard assistance as patient completes activity. Assistance may be provided throughout the activity or intermittently. 3-Partial/Moderate Assistance-helper does LESS THAN HALF the effort. [place] lift s, holds or supports trunk or limbs, but provides less than half the effort. 2-Substantial/Maximal Assistance-helper does MORE THAN HALF the effort. [place] lifts or holds trunk or limbs and provides more than half the effort. 6-Hmmsbclal-jrqxzj does ALL the effort. Patient does none of the effort to complete the activity. Or, the assistance of 2 or more helpers is required for the patient to complete the activity. If activity was not attempted, code reason: 7-Patient Refused. 9-Not Applicable-not attempted and the patient did not perform the activity before the current illness, exacerbation or injury. 10-Not Attempted due to Environmental Limitations-(lack of equipment, weather restraints, etc.). 88-Not Attempted due to Medical Conditions or Safety Concerns. Sit to Stand (QC): 4 (SBA) Weight Bearing Right Lower Extremity: Right Weight Bearing/Tolerated Gait Training Does the Patient Walk?: Yes Distance: 175' Walk 10 feet (QC): 4 (SBA) Walk 50 ft with 2 Turns(QC): 4 (SBA) Walk 150 ft (QC): 4 (SBA) Gait Assistive Device: FWW slow, steady gait sequence with 3 standing recovery periods due to back pain Exercises Seated Therapy Exercises: Ankle pumps, Long arc quads, Hip flexion, Hip abd/add Seated Reps: 15 Assessment Patient progressing with treatment plan. Continues to have back pain. Noted clonus right foot. RN made aware. PT Dietician Goals Dietician Goals PT Custodial Goals Time Frame: Apr 06, 2021 Roll Left & Right (QC): 4 (MET) Sit to Lying (QC): 4 (MET) Lying-Sitting on Side/Bed(QC): 4 (MET) Sit to Stand (QC): 4 Chair/Ded-io-Jdtnm Xfer(QC): 4 Toilet Transfer (QC): 4 Car Transfer (QC): 4 Does the Patient Walk: No and Walking Goal IS indicated Walk 10 feet (QC): 3 (MET) Walk 50ft with 2 Turns (QC): 88 Walk 150 ft (QC): 88 Walking 10ft on Uneven Surface: 88 1 Step (curb) (QC): 9 4 Steps (QC): 9 12 Steps (QC): 9 Picking up an Object (QC): 88 Wheel 50 feet with 2 turns (QC: 88 Type: N/A Wheel 150 feet: 88 Type: N/A PT Plan Treatment/Plan Treatment Plan: Continue Plan of Care Treatment Plan: Bed Mobility, Education, Functional Activity Radha, Functional Strength, Gait, Safety, Therapeutic Exercise, Transfers Treatment Duration: Apr 06, 2021 Frequency: 6 times per week Estimated Hrs Per Day: .25 hour per day Patient and/or Family Agrees t: Yes Time/GCodes Time In: 1030 Time Out: 1053 Total Billed Treatment Time: 23 Total Billed Treatment 1 visit GT 13 min EX 10 min JAISON QUINN PT Apr 02, 2021 11:19
[2021-04-02] MEDS: ACETAMINOPHEN 325 MG TABLET PO PRN (12:42)
--- NOTE | 2021-04-02 12:45 | Occupational Ther Daily Note ---
OT Current Status-Daily Note Subjective Pt alert, sitting in recliner. Pt states that she is tired and in pain, goes on to describe her new pain medication schedule and is hoping it works. Pt agrees to therapy. Pt is very pleasant. Mental Status/Objective Patient Orientation: Person, Place, Time, Situation ADL-Treatment Due to increased pain and already completing shower and oral care with nrsgLENORE educated pt on ADL equipment and energy compensation techniques for when at home. Pt stated that she will have HHC 2-3x per week and her mother will help and bring her meals. Demonstrated how to use AE for lower body dressing, due to increase fatigue and pain pt did not return demonstration. Pt acknowledged understanding of AE. Discussed other ways of eliminating bending during dressing with slip on shoes and larger gowns to make toileting easier. After session, pt sitting in recliner with call light/phone in reach. All needs met in room. Therapy Code Descriptions/Definitions Functional [place] Measure: 0=Not Assessed/NA 4=Minimal Assistance 1=Total Assistance 5=Supervision or Setup 2=Maximal Assistance 6=Modified [place] 3=Moderate Assistance 7=Complete IndependenceSCALE: Activities may be completed with or without assistive devices. 1-Ushabdurdc-ytmmozc completes the activity by him/herself with no assistance from a helper. 5-Set-up or Clean-up Assistance-helper sets up or cleans up; patient completes activity. [place] assists only prior to or following the activity. 4-Supervision or Touching Assistance-helper provides verbal cues and/or touching/steadying and/or contact guard assistance as patient completes activity. Assistance may be provided throughout the activity or intermittently. 3-Partial/Moderate Assistance-helper does LESS THAN HALF the effort. [place] lifts, holds or supports trunk or limbs, but provides less than half the effort. 2-Substantial/Maximal Assistance-helper does MORE THAN HALF the effort. [place] lifts or holds trunk or limbs and provides more than half the effort. 3-Uspnqfkmo-fltysq does ALL the effort. Patient does none of the effort to complete the activity. Or, the assistance of 2 or more helpers is required for the patient to complete the activity. If activity was not attempted, code reason: 7-Patient Refused. 9-Not Applicable-not attempted and the patient did not perform the activity before the current illness, exacerbation or injury. 10-Not Attempted due to Environmental Limitations-(lack of equipment, weather restraints, etc.). 88-Not Attempted due to Medical Conditions or Safety Concerns. Education OT Patient Education: Modified ADL techniques, Use of adapted equipment Teaching Recipient: Patient Teaching Methods: Demonstration, Discussion Response to Teaching: Verbalize Understanding, Reinforcement Needed OT Jail Goals Jail Goals Time Frame: Apr 05, 2021 Eating (QC): 6 Oral Hygiene (QC): 5 Toileting Hygiene (QC): 3 Shower/Bathe Self (QC): 3 Upper Body Dressing (QC): 5 Lower Body Dressing (QC): 3 On/Off Footwear (QC): 3 Additional Goals: 1-Demonstrate ADL Tasks, 2-Verbalize Understanding, 3- ImproveStrength/Radha 1=Demonstrate adherence to instructed precautions during ADL tasks. 2=Patient will verbalize/demonstrate understanding of assistive devices/modifications for ADL. 3=Patient will improve strength/tolerance for activity to enable patient to perform ADL's. OT Education/Plan Problem List/Assessment Assessment: Decreased Activ Tolerance, Impaired Self-Care Skills Pt would benefit from skilled OT services in order to increase safety and independence with ADLs, education on AE for LE dressing in order to minimize pain, and activity modification education. Discharge Recommendations Plan/Recommendations: Continue POC Treatment Plan/Plan of Care Patient would benefit from OT for education, treatment and training to promote independence in ADL's, mobility, safety and/or upper extremity function for ADL's. Plan of Care: ADL Retraining, Functional Mobility, UE Funct Exercise/Act Treatment Duration: Apr 05, 2021 Frequency: 5 times per week Estimated Hrs Per Day: .25 hour per day Rehab Potential: Fair Time/GCodes Start Time: 11:00 Stop Time: 11:20 Total Time Billed (hr/min): 20 Billed Treatment Time 1 visit-FA 1 (20 min) GERARDO DAMON Apr 02, 2021 12:45
[2021-04-02] MEDS: ALPRAZolam 0.25 MG (XANAX) TAB PO PRN (20:24)
[2021-04-02] MEDS: ONDANSETRON 4 MG/2 ML (SDV) Z0FRAN IV PRN (20:24)
[2021-04-03] MEDS: ACETAMINOPHEN 325 MG TABLET PO PRN (03:44)
[2021-04-03 03:48] VITALS: BP 94/60
[2021-04-03] MEDS: oxyCODONE ER 40 MG (oxyCONTIN CR) TAB PO SCH ×3 (05:47→21:48)
[2021-04-03 08:00] VITALS: BP 137/80
[2021-04-03] MEDS: polyethylene glycoL POWDER 17 GM (MIRALAX) PACK PO SCH (09:00)
[2021-04-03] MEDS: DOCUSATE SODIUM 100 MG (COLACE) CAP PO SCH ×2 (09:13→19:41)
[2021-04-03] MEDS: ASPIRIN E.C. 81 MG (ECOTRIN) TAB PO SCH (09:13)
[2021-04-03] MEDS: FAMOTIDINE 20 MG (PEPCID) TABLET PO SCH (09:13)
[2021-04-03] MEDS: PANTOPRAZOLE 40 MG (PROTONIX) TAB PO SCH (09:13)
[2021-04-03] MEDS: CEPHALEXIN 250 MG (KEFLEX) CAP PO SCH ×3 (09:13→19:42)
[2021-04-03] MEDS: TAMOXIFEN 10 MG (NOLVADEX) TAB PO SCH (09:13)
--- NOTE | 2021-04-03 09:27 | Occ Therapy Rehab Re-Cert ---
OT Re-Certification Form Plan of Care: ADL Retraining, Functional Mobility, UE Funct Exercise/Act Goals to remain the same, time frame extended to Apr 17, 2021. Frequency: 5 times per week Estimated Hrs Per Day: .25 hour per day Rehab Potential: Guarded OT Custodial Goals Gas Tender Goals Time Frame: Apr 17, 2021 Eating (QC): 6 Oral Hygiene (QC): 5 Toileting Hygiene (QC): 3 Shower/Bathe Self (QC): 3 Upper Body Dressing (QC): 5 Lower Body Dressing (QC): 3 On/Off Footwear (QC): 3 Additional Goals: 1-Demonstrate ADL Tasks, 2-Verbalize Understanding, 3-ImproveStrength/Radha 1=Demonstrate adherence to instructed precautions during ADL tasks. 2=Patient will verbalize/demonstrate understanding of assistive devices/modifications for ADL. 3=Patient will improve strength/tolerance for activity to enable patient to perform ADL's. [place] GUTHRIE OT Apr 03, 2021 09:27
--- NOTE | 2021-04-03 10:44 | Physical Therapy Daily Note ---
PT Daily Note-Current Subjective Patient in bed pre tx, agrees to PT but states she has much more pain today, she rates it at 7/10 in her back. Patient uses her pain pump before getting up. She states she is not supposed to be using it as much but needs it if she is going to get out of bed. Appearance Patient on toilet post tx, has nurse call. Mental Status Patient Orientation: Person, Place, Situation Attachments: IV Transfers SCALE: Activities may be completed with or without assistive devices. 6-Sakmdqdecf-mgdvedi completes the activity by him/herself with no assistance from a helper. 5-Set-up or Clean-up Assistance-helper sets up or cleans up; patient completes activity. [place] assists only prior to or following the activity. 4-Supervision or Touching Assistance-helper provides verbal cues and/or touching/steadying and/or contact guard assistance as patient completes activity. Assistance may be provided throughout the activity or intermittently. 3-Partial/Moderate Assistance-helper does LESS THAN HALF the effort. [place] lifts, holds or supports trunk or limbs, but provides less than half the effort. 2-Substantial/Maximal Assistance-helper does MORE THAN HALF the effort. [place] lifts or holds trunk or limbs and provides more than half the effort. 4-Rahkixxrc-gjxylo does ALL the effort. Patient does none of the effort to complete the activity. Or, the assistance of 2 or more helpers is required for the patient to complete the activity. If activity was not attempted, code reason: 7-Patient Refused. 9-Not Applicable-not attempted and the patient did not perform the activity before the current illness, exacerbation or injury. 10-Not Attempted due to Environmental Limitations-(lack of equipment, weather restraints, etc.). 88-Not Attempted due to Medical Conditions or Safety Concerns. Roll Left & Right (QC): 4 Lying to Sitting/Side of Bed(Q: 4 Sit to Stand (QC): 4 Chair/Pnq-ue-Rbsdf Xfer(QC): 4 Patient is SBA to [facility] for transfers, moves very slow due to pain Weight Bearing Right Lower Extremity: Right Weight Bearing/Tolerated Gait Training Distance: 100' Walk 10 feet (QC): 4 Walk 50 ft with 2 Turns(QC): 4 Gait Persons Needed: 1 Gait Assistive Device: FWW CGA, very slow ambulation, after getting back to her room she says she needs to use the toilet, patient sits on it with CGA, has nurse call Treatments bed mobility and transfers, ambulation Assessment Current Status: Poor Progress Patient had much more difficulty today and moved more slowly due to low back pain. At the end of tx she rates it at 10/10, nurse notified. PT Senior Living Goals Credit Historian Goals PT Credit Historian Goals Time Frame: Apr 06, 2021 Roll Left & Right (QC): 4 (MET) Sit to Lying (QC): 4 (MET) Lying-Sitting on Side/Bed(QC): 4 (MET) Sit to Stand (QC): 4 Chair/Sij-zj-Fufrm Xfer(QC): 4 Toilet Transfer (QC): 4 Car Transfer (QC): 4 Does the Patient Walk: No and Walking Goal IS indicated Walk 10 feet (QC): 3 (MET) Walk 50ft with 2 Turns (QC): 88 Walk 150 ft (QC): 88 Walking 10ft on Uneven Surface: 88 1 Step (curb) (QC): 9 4 Steps (QC): 9 12 Steps (QC): 9 Picking up an Object (QC): 88 Wheel 50 feet with 2 turns (QC: 88 Type: N/A Wheel 150 feet: 88 Type: N/A PT Plan Problem List Problem List: Activity Tolerance, Functional Strength, Safety, Balance, Gait, Transfer, Bed Mobility, ROM Treatment/Plan Treatment Plan: Continue Plan of Care Treatment Plan: Bed Mobility, Education, Functional Activity Radha, Functional Strength, Gait, Safety, Therapeutic Exercise, Transfers Treatment Duration: Apr 06, 2021 Frequency: 6 times per week Estimated Hrs Per Day: .25 hour per day Patient and/or Family Agrees t: Yes Safety Risks/Education Patient Education: Gait Training, Transfer Techniques, Correct Positioning, Safety Issues Teaching Recipient: Patient Teaching Methods: Demonstration, Discussion Response to Teaching: Reinforcement Needed Time/GCodes Time In: 1023 Time Out: 1038 Total Billed Treatment Time: 15 Total Billed Treatment 1 visit FA 15' PAUL ROBERSON PT Apr 03, 2021 10:44
[2021-04-03] MEDS: ONDANSETRON 4 MG/2 ML (SDV) Z0FRAN IV PRN (11:54)
[2021-04-03 12:00] VITALS: BP 109/62
--- NOTE | 2021-04-03 12:40 | Occupational Ther Daily Note ---
OT Current Status-Daily Note Subjective Pt alert, lying in bed. Pt stated that she is just tired today though she made sure that she went walking with PT before GROVER entered room. Pt agrees to therapy. Mental Status/Objective Patient Orientation: Person, Place, Time, Situation Attachments: IV ADL-Treatment After gathering supplies, pt able to complete oral care sitting upright in bed. Pt washed her face with warm washcloth. Pt then requested to use toilet. Supine <--> EOB independent with HOB raised and hand rails. Pt ambulated to toilet using FWW, assist to manipulate IV pole and tubing. Pt complete transfer and toileting independently. Pt then ambulated to sink to wash hands. Ambulated using FWW back to bed with assist only for IV pole and tubing. After session, pt lying in bed with call light/phone in reach. All needs met in room. Therapy Code Descriptions/Definitions Functional [place] Measure: 0=Not Assessed/NA 4=Minimal Assistance 1=Total Assistance 5=Supervision or Setup 2=Maximal Assistance 6=Modified [place] 3=Moderate Assistance 7=Complete IndependenceSCALE: Activities may be completed with or without assistive devices. 5-Apulfxnyzr-ldmvhca completes the activity by him/herself with no assistance from a helper. 5-Set-up or Clean-up Assistance-helper sets up or cleans up; patient completes activity. [place] assists only prior to or following the activity. 4-Supervision or Touching Assistance-helper provides verbal cues and/or touching/steadying and/or contact guard assistance as patient completes activity. Assistance may be provided throughout the activity or intermittently. 3-Partial/Moderate Assistance-helper does LESS THAN HALF the effort. [place] lifts, holds or supports trunk or limbs, but provides less than half the effort. 2-Substantial/Maximal Assistance-helper does MORE THAN HALF the effort. [place] lifts or holds trunk or limbs and provides more than half the effort. 5-Iixnvgapn-kfjyjx does ALL the effort. Patient does none of the effort to complete the activity. Or, the assistance of 2 or more helpers is required for the patient to complete the activity. If activity was not attempted, code reason: 7-Patient Refused. 9-Not Applicable-not attempted and the patient did not perform the activity before the current illness, exacerbation or injury. 10-Not Attempted due to Environmental Limitations-(lack of equipment, weather restraints, etc.). 88-Not Attempted due to Medical Conditions or Safety Concerns. Oral Hygiene (QC): 5 Toileting Hygiene (QC): 6 Toilet Transfer (QC): 6 OT Mcfp Goals Mcfp Goals Time Frame: Apr 17, 2021 Eating (QC): 6 Oral Hygiene (QC): 5 Toileting Hygiene (QC): 3 Shower/Bathe Self (QC): 3 Upper Body Dressing (QC): 5 Lower Body Dressing (QC): 3 On/Off Footwear (QC): 3 Additional Goals: 1-Demonstrate ADL Tasks, 2-Verbalize Understanding, 3- ImproveStrength/Radha 1=Demonstrate adherence to instructed precautions during ADL tasks. 2=Patient will verbalize/demonstrate understanding of assistive devices/modifications for ADL. 3=Patient will improve strength/tolerance for activity to enable patient to perform ADL's. OT Education/Plan Problem List/Assessment Assessment: Decreased Activ Tolerance, Impaired Self-Care Skills Pt would benefit from skilled OT services in order to increase safety and independence with ADLs, education on AE for LE dressing in order to minimize pain, and activity modification education. Discharge Recommendations Plan/Recommendations: Continue POC Treatment Plan/Plan of Care Patient would benefit from OT for education, treatment and training to promote independence in ADL's, mobility, safety and/or upper extremity function for ADL's. Plan of Care: ADL Retraining, Functional Mobility, UE Funct Exercise/Act Treatment Duration: Apr 05, 2021 Frequency: 5 times per week Estimated Hrs Per Day: .25 hour per day Rehab Potential: Guarded Time/GCodes Start Time: 11:02 Stop Time: 11:25 Total Time Billed (hr/min): 23 Billed Treatment Time 1 visit-ADL 2 (23 min) GERARDO DAMON Apr 03, 2021 12:40
[2021-04-03 16:00] VITALS: BP 117/67
[2021-04-03] MEDS: NS IV 1000 ML 1,000 ML IV SCH (17:10)
[2021-04-03 19:58] VITALS: BP 120/62
[2021-04-03] MEDS: CYCLOBENZAPRINE 10 MG (FLEXERIL) TAB PO PRN (21:48)
[2021-04-04 00:26] VITALS: BP 119/64
[2021-04-04] MEDS: ACETAMINOPHEN 325 MG TABLET PO PRN ×2 (03:56→23:35)
[2021-04-04 04:59] VITALS: BP 121/75
[2021-04-04] MEDS: oxyCODONE ER 40 MG (oxyCONTIN CR) TAB PO SCH ×2 (05:37→20:39)
--- NOTE | 2021-04-04 07:12 | Progress Note ---
Subjective Date Seen by a Provider: Apr 04, 2021 Time Seen by a Provider: 06:40 Subjective/Events-last exam Janene in good spirits this am. She is possibly going home this Thursday. She is still receiving radiation therapy and chemo. No constipation currently. She denies any current urinary symptoms and is on last day of cephalexin. Objective Exam Vital Signs Date Time Temp Pulse Resp B/P (MAP) Pulse Ox O2 Delivery O2 Flow Rate FiO2 04/04/21 05:33 20 04/04/21 04:59 36.7 118 20 121/75 (90) 91 Room Air 04/04/21 04:45 37.9 04/04/21 04:45 37.9 04/04/21 03:56 37.9 04/04/21 00:26 38.0 119 20 119/64 (82) 93 Room Air 04/03/21 19:58 37.8 111 20 120/62 (81) 94 Room Air 04/03/21 19:45 Room Air 04/03/21 18:00 20 04/03/21 16:00 38.0 120 20 117/67 (84) 95 Room Air 04/03/21 12:00 36.8 104 20 109/62 (78) 95 Room Air 04/03/21 08:00 Room Air 04/03/21 08:00 35.8 104 18 137/80 (99) 94 Room Air I & O 04/04/21 07:00 Intake Total 1630 ml Output Total 1850 ml Balance -220 ml Capillary Refill : Less Than 3 Seconds General Appearance: No Apparent Distress Respiratory: Lungs Clear Cardiovascular: Regular Rate, Rhythm Results Lab Microbiology 03/28/21 Urine Culture - Final, Complete Escherichia coli 03/13/21 MRSA Screen - Final, Complete MRSA not isolated Assessment/Plan Assessment/Plan Assess & Plan/Chief Complaint 1. 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 Intractable pain due to the metastasis -Dilaudid AIRBORNE ELECTRONICS ANALYST pump 03/14 -AIRBORNE ELECTRONICS ANALYST pump otherwise no change 03/15 -AIRBORNE ELECTRONICS ANALYST pump still available 03/18 -still requiring AIRBORNE ELECTRONICS ANALYST pump as scheduled 03/21 -Will DC Johnson catheter since her pain level has improved and she can now go to the bathroom herself most likely 03/25 -switch to po long acting pain meds this week. 04/04 -Pain management going well. Soon to be on only po meds for pain 3. Nutritional status -check CMP as well as check her weight weekly. 03/15 -protein and albumin stable -Her weight is pending 04/01 -Check weight 4. Dyspepsia -on pepcid and protonix 5. HTN-history of -she is currently stable with bp 6. Constipation most likely due to inactivity as well as narcotic usage 03/29 -Patient may need enema today 04/04-constipation resolved. 7. Urinary tract infection diagnosed March 28 -currently on ceftriaxone 1 g daily -Urine culture pending 04/01 -E coli by urine culture -will switch to cephalexin 500 tid x 4 additional days 04/04 -doing well GLADIS GRIGGS MD Apr 04, 2021 07:12
[2021-04-04 08:12] VITALS: BP 128/78
[2021-04-04] MEDS: PANTOPRAZOLE 40 MG (PROTONIX) TAB PO SCH (09:51)
[2021-04-04] MEDS: FAMOTIDINE 20 MG (PEPCID) TABLET PO SCH (09:51)
[2021-04-04] MEDS: CEPHALEXIN 250 MG (KEFLEX) CAP PO SCH ×3 (09:51→20:39)
[2021-04-04] MEDS: DOCUSATE SODIUM 100 MG (COLACE) CAP PO SCH ×2 (09:51→20:39)
[2021-04-04] MEDS: ASPIRIN E.C. 81 MG (ECOTRIN) TAB PO SCH (09:52)
[2021-04-04] MEDS: TAMOXIFEN 10 MG (NOLVADEX) TAB PO SCH (09:52)
[2021-04-04] MEDS: polyethylene glycoL POWDER 17 GM (MIRALAX) PACK PO SCH (09:52)
--- NOTE | 2021-04-04 09:53 | Progress Note ---
Progress Note Assessment/Plan Date Seen by Provider: Apr 04, 2021 Time Seen by Provider: 09:48 Events since last exam Pt used 11 doses of 5mg Oxycodone PRN around last 24 hrs and FELLER OPERATOR 5-6 times bolus. Will convert the 50mg short acting Oxycodone to long acting Oxycontin, 100mg q am and 60mg q pm, starting today. Increase PRN oxycodone from 5mg to 10mg q2hrs PRN. Goal is get off the FELLER OPERATOR by next Thursday and get ready to go home. Assessment/Plan A/P: 1. 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 T9 spine lesion risk of cord compression. Right acetabulum lesion risk of pathological fracture. 2. Intractable pain from the bone mets. Has been Oxycodone and Fentanyl patch at home and still rate pain 10/10. She needed 8mg morphine IV at the clinic in order to calm down her pain. She is doing much better and is in the processing of weaning off FELLER OPERATOR dilaudid. 3. Dizziness when she turns her head. Resolved. Plan: 1. Finish radiation to radiate T9 and right hip lesion in 23 fractions [address] Zuñiga. 2. Increase oral Oxycontin 100mg qam and 60mg q pm. Increase Oxycondone to 10 mg q2hr PRN breakthrough. Still keep FELLER OPERATOR bolus as needed for now. Hope to be off by next Thursday. 4. Continue Pepcid or protonix per Dr Martin's choice. 5. Continue oral tamoxifen 20mg daily and will start Faslodex once she is done with the radiation. . 6. Constipation prophylaxis. 7. Physical and occupational therapy. 8. Dr. Martin to decide the discharge. F/u with me within a week for pain man agement and to get Faslodex injection. Vitals Last set of Vitals Signs Vital Signs Date Time Temp Pulse Resp B/P (MAP) Pulse Ox O2 Delivery O2 Flow Rate FiO2 04/04/21 08:12 36.0 103 20 128/78 (95) 93 Room Air I&O I&O Intake and Output 04/03/21 23:59 Intake Total 1682 ml Output Total 750 ml Balance 932 ml Intake Oral 1682 ml Output Urine Total 750 ml # Voids 2 Labs Microbiology 03/28/21 Urine Culture - Final, Complete Escherichia coli 03/13/21 MRSA Screen - Final, Complete MRSA not isolated JEZ LAWLER MD Apr 04, 2021 09:53
[2021-04-04] MEDS: oxyCODONE/APAP 10/325MG (PERCOCET 10) TABLET PO PRN ×4 (09:56→23:34)
--- NOTE | 2021-04-04 10:20 | Physical Therapy Daily Note ---
PT Daily Note-Current Subjective Patient reports increase c/o back pain 8/10 with SCIENTIFIC PROGRAMMER ANALYST and pain medication (pills) Pain Numeric Pain Scale: 8 Location: Medial Location Body Site: Back Pain Description: Sharp Mental Status Patient Orientation: Normal For Age Attachments: Central Line Transfers SCALE: Activities may be completed with or without assistive devices. 7-Rqfzdfzsct-ksgfptl completes the activity by him/herself with no assistance from a helper. 5-Set-up or Clean-up Assistance-helper sets up or cleans up; patient completes activity. [place] assists only prior to or following the activity. 4-Supervision or Touching Assistance-helper provides verbal cues and/or touching/steadying and/or contact guard assistance as patient completes activity. Assistance may be provided throughout the activity or intermittently. 3-Partial/Moderate Assistance-helper does LESS THAN HALF the effort. [place] lifts, holds or supports trunk or limbs, but provides less than half the effort. 2-Substantial/Maximal Assistance-helper does MORE THAN HALF the effort. [place] lifts or holds trunk or limbs and provides more than half the effort. 0-Glgohpfhe-kyplly does ALL the effort. Patient does none of the effort to complete the activity. Or, the assistance of 2 or more helpers is required for the patient to complete the activity. If activity was not attempted, code reason: 7-Patient Refused. 9-Not Applicable-not attempted and the patient did not perform the activity before the current illness, exacerbation or injury. 10-Not Attempted due to Environmental Limitations-(lack of equipment, weather restraints, etc.). 88-Not Attempted due to Medical Conditions or Safety Concerns. Roll Left & Right (QC): 6 Lying to Sitting/Side of Bed(Q: 6 Sit to Stand (QC): 4 Chair/Sam-ru-Gogel Xfer(QC): 4 Weight Bearing Right Lower Extremity: Right Weight Bearing/Tolerated Gait Training Does the Patient Walk?: Yes Distance: 275' Walk 10 feet (QC): 4 (SBA) Walk 50 ft with 2 Turns(QC): 4 (SBA) Walk 150 ft (QC): 4 (SBA) Gait Assistive Device: FWW slow, antalgic gait sequence with increase c/o right hip pain Exercises Supine Ex: Ankle pumps, Quad Set, Heel Slides, Straight leg raise Supine Reps: 15 Seated Therapy Exercises: Ankle pumps, Long arc quads, Hip flexion Seated Reps: 15 Assessment Patient much improved with gross motor skills, however, pain continues to increase in back and right hip with activity. PT Nursing Home Goals Nursing Home Goals PT Nursing Home Goals Time Frame: Apr 06, 2021 Roll Left & Right (QC): 4 (MET) Sit to Lying (QC): 4 (MET) Lying-Sitting on Side/Bed(QC): 4 (MET) Sit to Stand (QC): 4 Chair/Lzh-bl-Umule Xfer(QC): 4 Toilet Transfer (QC): 4 Car Transfer (QC): 4 Does the Patient Walk: No and Walking Goal IS indicated Walk 10 feet (QC): 3 (MET) Walk 50ft with 2 Turns (QC): 88 Walk 150 ft (QC): 88 Walking 10ft on Uneven Surface: 88 1 Step (curb) (QC): 9 4 Steps (QC): 9 12 Steps (QC): 9 Picking up an Object (QC): 88 Wheel 50 feet with 2 turns (QC: 88 Type: N/A Wheel 150 feet: 88 Type: N/A PT Plan Treatment/Plan Treatment Plan: Continue Plan of Care Treatment Plan: Bed Mobility, Education, Functional Activity Radha, Functional Strength, Gait, Safety, Therapeutic Exercise, Transfers Treatment Duration: Apr 06, 2021 Frequency: 6 times per week Estimated Hrs Per Day: .25 hour per day Patient and/or Family Agrees t: Yes Time/GCodes Time In: 920 Time Out: 945 Total Billed Treatment Time: 25 Total Billed Treatment 1 visit EX 12 min GT 13 min JAISON QUINN PT Apr 04, 2021 10:20
[2021-04-04 11:44] VITALS: BP 122/72
[2021-04-04] MEDS ORDERED: oxyCODONE ER 40 MG (oxyCONTIN CR) TAB PO NR (13:00)
--- NOTE | 2021-04-04 13:27 | Occupational Ther Daily Note ---
OT Current Status-Daily Note Subjective No pain reported. Appearance Pt. up in chair. She states that she has been up to the bathroom and just got back to her chair. Mental Status/Objective Patient Orientation: Person, Place, Time, Situation ADL-Treatment Therapy Code Descriptions/Definitions Functional [place] Measure: 0=Not Assessed/NA 4=Minimal Assistance 1=Total Assistance 5=Supervision or Setup 2=Maximal Assistance 6=Modified [place] 3=Moderate Assistance 7=Complete IndependenceSCALE: Activities may be completed with or without assistive devices. 9-Rtdhkedbkx-xqbvbes completes the activity by him/herself with no assistance from a helper. 5-Set-up or Clean-up Assistance-helper sets up or cleans up; patient completes activity. [place] assists only prior to or following the activity. 4-Supervision or Touching Assistance-helper provides verbal cues and/or touching/steadying and/or contact guard assistance as patient completes activity. Assistance may be provided throughout the activity or intermittently. 3-Partial/Moderate Assistance-helper does LESS THAN HALF the effort. [place] lifts, holds or supports trunk or limbs, but provides less than half the effort. 2-Substantial/Maximal Assistance-helper does MORE THAN HALF the effort. [place] lifts or holds trunk or limbs and provides more than half the effort. 2-Fdhpbbpxn-lykguk does ALL the effort. Patient does none of the effort to complete the activity. Or, the assistance of 2 or more helpers is required for the patient to complete the activity. If activity was not attempted, code reason: 7-Patient Refused. 9-Not Applicable-not attempted and the patient did not perform the activity before the current illness, exacerbation or injury. 10-Not Attempted due to Environmental Limitations-(lack of equipment, weather restraints, etc.). 88-Not Attempted due to Medical Conditions or Safety Concerns. Pt. has just returned from the bathroom and brushed her teeth. Agrees to work on UE strengthening with red theraband. Pt. completes 3 bilateral UE exercises x 15 reps each in all planes with brief rest break in between. Pt. tolerated session well. Pt. up in chair with all needs met at end of session. Education OT Patient Education: Correct positioning, Exercise program, Progress toward Goal/Update tx plan Teaching Recipient: Patient Teaching Methods: Demonstration, Discussion Response to Teaching: Verbalize Understanding, Return Demonstration OT Senior Ui Ux Developer Goals Senior Ui Ux Developer Goals Time Frame: Apr 17, 2021 Eating (QC): 6 Oral Hygiene (QC): 5 Toileting Hygiene (QC): 3 Shower/Bathe Self (QC): 3 Upper Body Dressing (QC): 5 Lower Body Dressing (QC): 3 On/Off Footwear (QC): 3 Additional Goals: 1-Demonstrate ADL Tasks, 2-Verbalize Understanding, 3- ImproveStrength/Radha 1=Demonstrate adherence to instructed precautions during ADL tasks. 2=Patient will verbalize/demonstrate understanding of assistive devices/modifications for ADL. 3=Patient will improve strength/tolerance for activity to enable patient to perform ADL's. OT Education/Plan Problem List/Assessment Assessment: Decreased Activ Tolerance Pt would benefit from skilled OT services in order to increase safety and independence with ADLs, education on AE for LE dressing in order to minimize pa in, and activity modification education. Discharge Recommendations Plan/Recommendations: Continue POC Therapy Discharge Recommendati: Home & Family, Post Acute OT Treatment Plan/Plan of Care Treatment,Training & Education: Yes Patient would benefit from OT for education, treatment and training to promote independence in ADL's, mobility, safety and/or upper extremity function for ADL's. Plan of Care: ADL Retraining, Functional Mobility, UE Funct Exercise/Act Treatment Duration: Apr 05, 2021 Frequency: 5 times per week Estimated Hrs Per Day: .25 hour per day Agreement: Yes Rehab Potential: Fair Time/GCodes Start Time: 11:30 Stop Time: 11:45 Total Time Billed (hr/min): 15 Billed Treatment Time 1, Ex RJ HERNANDEZ OT Apr 04, 2021 13:27
[2021-04-04] MEDS: NS IV 1000 ML 1,000 ML IV SCH ×2 (13:38→20:39)
[2021-04-04 15:54] VITALS: BP 112/65
[2021-04-04 19:50] VITALS: BP 129/62
[2021-04-04] MEDS: ALPRAZolam 0.25 MG (XANAX) TAB PO PRN (20:49)
[2021-04-04] MEDS: CYCLOBENZAPRINE 10 MG (FLEXERIL) TAB PO PRN (20:49)
[2021-04-05 00:01] VITALS: BP 134/83
[2021-04-05] MEDS: oxyCODONE/APAP 10/325MG (PERCOCET 10) TABLET PO PRN ×5 (02:05→18:26)
[2021-04-05 04:00] VITALS: BP 106/66
[2021-04-05 08:00] VITALS: BP 102/69
[2021-04-05] MEDS: FAMOTIDINE 20 MG (PEPCID) TABLET PO SCH (08:27)
[2021-04-05] MEDS: PANTOPRAZOLE 40 MG (PROTONIX) TAB PO SCH (08:27)
[2021-04-05] MEDS: polyethylene glycoL POWDER 17 GM (MIRALAX) PACK PO SCH (08:27)
[2021-04-05] MEDS: ASPIRIN E.C. 81 MG (ECOTRIN) TAB PO SCH (08:27)
[2021-04-05] MEDS: DOCUSATE SODIUM 100 MG (COLACE) CAP PO SCH ×2 (08:27→20:53)
[2021-04-05] MEDS: oxyCODONE ER 40 MG (oxyCONTIN CR) TAB PO SCH ×2 (08:28→20:53)
[2021-04-05] MEDS: TAMOXIFEN 10 MG (NOLVADEX) TAB PO SCH (08:32)
[2021-04-05] MEDS ORDERED: oxyCODONE ER 40 MG (oxyCONTIN CR) TAB PO SCH (09:00)
[2021-04-05] MEDS ORDERED: oxyCODONE ER 20 MG (OxyCONTIN CR) TAB PO NR (10:30)
--- NOTE | 2021-04-05 11:46 | Physical Therapy Daily Note ---
PT Daily Note-Current Subjective Patient agrees to PT. Mental Status Patient Orientation: Normal For Age Attachments: Central Line Transfers SCALE: Activities may be completed with or without assistive devices. 1-Nisaidqpdp-ovnzxom completes the activity by him/herself with no assistance from a helper. 5-Set-up or Clean-up Assistance-helper sets up or cleans up; patient completes activity. [place] assists only prior to or following the activity. 4-Supervision or Touching Assistance-helper provides verbal cues and/or touching/steadying and/or contact guard assistance as patient completes activity. Assistance may be provided throughout the activity or intermittently. 3-Partial/Moderate Assistance-helper does LESS THAN HALF the effort. [place] lifts, holds or supports trunk or limbs, but provides less than half the effort. 2-Substantial/Maximal Assistance-helper does MORE THAN HALF the effort. [place] lifts or holds trunk or limbs and provides more than half the effort. 6-Yytgfnmom-hrifme does ALL the effort. Patient does none of the effort to complete the activity. Or, the assistance of 2 or more helpers is required for the patient to complete the activity. If activity was not attempted, code reason: 7-Patient Refused. 9-Not Applicable-not attempted and the patient did not perform the activity before the current illness, exacerbation or injury. 10-Not Attempted due to Environmental Limitations-(lack of equipment, weather restraints, etc.). 88-Not Attempted due to Medical Conditions or Safety Concerns. Lying to Sitting/Side of Bed(Q: 6 Sit to Stand (QC): 4 Chair/Gmd-dq-Gwhcy Xfer(QC): 4 Weight Bearing Right Lower Extremity: Right Weight Bearing/Tolerated Gait Training Does the Patient Walk?: Yes Distance: 500' Walk 10 feet (QC): 4 Walk 50 ft with 2 Turns(QC): 4 Walk 150 ft (QC): 4 Gait Assistive Device: FWW safe and functional/SBA for safety Exercises Supine Ex: Ankle pumps, Quad Set, Glut sets, Heel Slides, Straight leg raise Supine Reps: 10 Seated Therapy Exercises: Long arc quads Seated Reps: 15 Assessment Patient up in recliner with needs met. Plan dismissal to home next week. PT Assisted Goals Fuse Cutter Goals PT Fuse Cutter Goals Time Frame: Apr 06, 2021 Roll Left & Right (QC): 4 (MET) Sit to Lying (QC): 4 (MET) Lying-Sitting on Side/Bed(QC): 4 (MET) Sit to Stand (QC): 4 Chair/Ljh-tk-Debaa Xfer(QC): 4 Toilet Transfer (QC): 4 Car Transfer (QC): 4 Does the Patient Walk: No and Walking Goal IS indicated Walk 10 feet (QC): 3 (MET) Walk 50ft with 2 Turns (QC): 88 Walk 150 ft (QC): 88 Walking 10ft on Uneven Surface: 88 1 Step (curb) (QC): 9 4 Steps (QC): 9 12 Steps (QC): 9 Picking up an Object (QC): 88 Wheel 50 feet with 2 turns (QC: 88 Type: N/A Wheel 150 feet: 88 Type: N/A PT Plan Treatment/Plan Treatment Plan: Continue Plan of Care Treatment Plan: Bed Mobility, Education, Functional Activity Radha, Functional Strength, Gait, Safety, Therapeutic Exercise, Transfers Treatment Duration: Apr 06, 2021 Frequency: 6 times per week Estimated Hrs Per Day: .25 hour per day Patient and/or Family Agrees t: Yes Time/GCodes Time In: 1044 Time Out: 1100 Total Billed Treatment Time: 16 Total Billed Treatment 1 visit FA 16 min JAISON QUINN PT Apr 05, 2021 11:46
[2021-04-05 12:00] VITALS: BP 120/73
--- NOTE | 2021-04-05 14:19 | Occupational Ther Daily Note ---
OT Current Status-Daily Note Subjective Pt dozing in bed, woke easily to name. Pt agrees to therapy though continues to drift off to sleep during session. Mental Status/Objective Patient Orientation: Person, Place, Time, Situation Attachments: IV ADL-Treatment Therapy Code Descriptions/Definitions Functional [place] Measure: 0=Not Assessed/NA 4=Minimal Assistance 1=Total Assistance 5=Supervision or Setup 2=Maximal Assistance 6=Modified [place] 3=Moderate Assistance 7=Complete IndependenceSCALE: Activities may be completed with or without assistive devices. 1-Lybaqcdrlt-gbwnrdw completes the activity by him/herself with no assistance from a helper. 5-Set-up or Clean-up Assistance-helper sets up or cleans up; patient completes activity. [place] assists only prior to or following the activity. 4-Supervision or Touching Assistance-helper provides verbal cues and/or touching/steadying and/or contact guard assistance as patient completes activity. Assistance may be provided throughout the activity or intermittently. 3-Partial/Moderate Assistance-helper does LESS THAN HALF the effort. [place] lifts, holds or supports trunk or limbs, but provides less than half the effort. 2-Substantial/Maximal Assistance-helper does MORE THAN HALF the effort. [place] lifts or holds trunk or limbs and provides more than half the effort. 6-Zjxfdolcc-ptjsyn does ALL the effort. Patient does none of the effort to complete the activity. Or, the assistance of 2 or more helpers is required for the patient to complete the activity. If activity was not attempted, code reason: 7-Patient Refused. 9-Not Applicable-not attempted and the patient did not perform the activity before the current illness, exacerbation or injury. 10-Not Attempted due to Environmental Limitations-(lack of equipment, weather restraints, etc.). 88-Not Attempted due to Medical Conditions or Safety Concerns. Other Treatment Educated pt on energy conservation techniques. Pt verbalized understanding of educational topic and was able to give personal strategies and repeat strategies given. After therapy, pt immediately fell asleep in bed. Call light/phone in reach. All needs met in room. OT Building Construction Supervisor Goals Halfway Goals Time Frame: Apr 17, 2021 Eating (QC): 6 Oral Hygiene (QC): 5 Toileting Hygiene (QC): 3 Shower/Bathe Self (QC): 3 Upper Body Dressing (QC): 5 Lower Body Dressing (QC): 3 On/Off Footwear (QC): 3 Additional Goals: 1-Demonstrate ADL Tasks, 2-Verbalize Understanding, 3-ImproveStrength/Radha 1=Demonstrate adherence to instructed precautions during ADL tasks. 2=Patient will verbalize/demonstrate understanding of assistive devices/modifications for ADL. 3=Patient will improve strength/tolerance for activity to enable patient to perf orm ADL's. OT Education/Plan Problem List/Assessment Assessment: Decreased Activ Tolerance, Impaired Self-Care Skills Pt would benefit from skilled OT services in order to increase safety and independence with ADLs, education on AE for LE dressing in order to minimize pain, and activity modification education. Discharge Recommendations Plan/Recommendations: Continue POC Treatment Plan/Plan of Care Patient would benefit from OT for education, treatment and training to promote independence in ADL's, mobility, safety and/or upper extremity function for ADL's. Plan of Care: ADL Retraining, Functional Mobility, UE Funct Exercise/Act Treatment Duration: Apr 05, 2021 Frequency: 5 times per week Estimated Hrs Per Day: .25 hour per day Agreement: Yes Rehab Potential: Fair Time/GCodes Start Time: 14:00 Stop Time: 14:15 Total Time Billed (hr/min): 15 Billed Treatment Time 1 visit-FA 1 (15 min) GERARDO DAMON Apr 05, 2021 14:19
[2021-04-05 16:01] VITALS: BP 130/75
[2021-04-05] MEDS: CYCLOBENZAPRINE 10 MG (FLEXERIL) TAB PO PRN (19:07)
[2021-04-05 20:53] VITALS: BP 120/83
[2021-04-06] VITALS (7 sets, daily range): BP systolic 110–147; BP diastolic 62–86
[2021-04-06] MEDS: oxyCODONE/APAP 10/325MG (PERCOCET 10) TABLET PO PRN ×5 (01:47→22:38)
[2021-04-06] MEDS: CYCLOBENZAPRINE 10 MG (FLEXERIL) TAB PO PRN (04:29)
[2021-04-06] MEDS: NS IV 1000 ML 1,000 ML IV SCH (04:50)
[2021-04-06] MEDS: oxyCODONE ER 40 MG (oxyCONTIN CR) TAB PO SCH ×2 (08:48→21:31)
[2021-04-06] MEDS: ONDANSETRON 4 MG/2 ML (SDV) Z0FRAN IV PRN (09:28)
[2021-04-06] MEDS: FAMOTIDINE 20 MG (PEPCID) TABLET PO SCH (09:39)
[2021-04-06] MEDS: DOCUSATE SODIUM 100 MG (COLACE) CAP PO SCH ×2 (09:39→21:31)
[2021-04-06] MEDS: ASPIRIN E.C. 81 MG (ECOTRIN) TAB PO SCH (09:39)
[2021-04-06] MEDS: polyethylene glycoL POWDER 17 GM (MIRALAX) PACK PO SCH (09:39)
[2021-04-06] MEDS: TAMOXIFEN 10 MG (NOLVADEX) TAB PO SCH (09:39)
[2021-04-06] MEDS: PANTOPRAZOLE 40 MG (PROTONIX) TAB PO SCH (09:39)
--- NOTE | 2021-04-06 10:02 | Physical Therapy Daily Note ---
PT Daily Note-Current Subjective Patient is in 10/10 back pain with TERRITORY OUTSIDE SALES MANAGER and RN issuing oral medication. Pain Numeric Pain Scale: 10-Worst Possible Pain Location: Medial Location Body Site: Back Pain Description: Sharp Mental Status Patient Orientation: Normal For Age Attachments: Central Line Transfers SCALE: Activities may be completed with or without assistive devices. 1-Swazokgvxu-kckgiij completes the activity by him/herself with no assistance from a helper. 5-Set-up or Clean-up Assistance-helper sets up or cleans up; patient completes activity. [place] assists only prior to or following the activity. 4-Supervision or Touching Assistance-helper provides verbal cues and/or touching/steadying and/or contact guard assistance as patient completes activity. Assistance may be provided throughout the activity or intermittently. 3-Partial/Moderate Assistance-helper does LESS THAN HALF the effort. [place] lifts, holds or supports trunk or limbs, but provides less than half the effort. 2-Substantial/Maximal Assistance-helper does MORE THAN HALF the effort. [place] lifts or holds trunk or limbs and provides more than half the effort. 1-Xtkknkanc-jbnzqz does ALL the effort. Patient does none of the effort to complete the activity. Or, the assistance of 2 or more helpers is required for the patient to complete the activity. If activity was not attempted, code reason: 7-Patient Refused. 9-Not Applicable-not attempted and the patient did not perform the activity before the current illness, exacerbation or injury. 10-Not Attempted due to Environmental Limitations-(lack of equipment, weather restraints, etc.). 88-Not Attempted due to Medical Conditions or Safety Concerns. Roll Left & Right (QC): 6 Sit to Lying (QC): 6 Lying to Sitting/Side of Bed(Q: 6 Sit to Stand (QC): 4 Chair/Fzg-kn-Vcigw Xfer(QC): 4 Toilet Transfer (QC): 4 Weight Bearing Right Lower Extremity: Right Weight Bearing/Tolerated Gait Training Distance: 10' Walk 10 feet (QC): 4 Walk 50 ft with 2 Turns(QC): 88 Walk 150 ft (QC): 88 Walking 10ft/uneven surface-QC: 88 Gait Assistive Device: FWW Exercises Seated Therapy Exercises: Ankle pumps, Long arc quads, Hip flexion Seated Reps: 12 Assessment Patient tolerates minimal activity due to pain. Plan dismissal next week. PT Fpc Goals Tool Keeper Goals PT Tool Keeper Goals Time Frame: Apr 06, 2021 Roll Left & Right (QC): 4 (MET) Sit to Lying (QC): 4 (MET) Lying-Sitting on Side/Bed(QC): 4 (MET) Sit to Stand (QC): 4 Chair/Xqf-ny-Bhzil Xfer(QC): 4 Toilet Transfer (QC): 4 Car Transfer (QC): 4 Does the Patient Walk: No and Walking Goal IS indicated Walk 10 feet (QC): 3 (MET) Walk 50ft with 2 Turns (QC): 88 Walk 150 ft (QC): 88 Walking 10ft on Uneven Surface: 88 1 Step (curb) (QC): 9 4 Steps (QC): 9 12 Steps (QC): 9 Picking up an Object (QC): 88 Wheel 50 feet with 2 turns (QC: 88 Type: N/A Wheel 150 feet: 88 Type: N/A PT Plan Treatment/Plan Treatment Plan: Continue Plan of Care Treatment Plan: Bed Mobility, Education, Functional Activity Radha, Functional Strength, Gait, Safety, Therapeutic Exercise, Transfers Treatment Duration: Apr 06, 2021 Frequency: 6 times per week Estimated Hrs Per Day: .25 hour per day Patient and/or Family Agrees t: Yes Time/GCodes Time In: 831 Time Out: 846 Total Billed Treatment Time: 15 Total Billed Treatment 1 visit FA 15 min JAISON QUINN PT Apr 06, 2021 10:02
[2021-04-07 04:30] VITALS: BP 154/79
[2021-04-07] MEDS: oxyCODONE/APAP 10/325MG (PERCOCET 10) TABLET PO PRN ×7 (07:26→23:30)
[2021-04-07 07:55] VITALS: BP 124/72
[2021-04-07] MEDS: ASPIRIN E.C. 81 MG (ECOTRIN) TAB PO SCH (08:58)
[2021-04-07] MEDS: oxyCODONE ER 40 MG (oxyCONTIN CR) TAB PO SCH ×2 (08:58→20:10)
[2021-04-07] MEDS: DOCUSATE SODIUM 100 MG (COLACE) CAP PO SCH ×2 (08:58→20:10)
[2021-04-07] MEDS: FAMOTIDINE 20 MG (PEPCID) TABLET PO SCH (08:58)
[2021-04-07] MEDS: PANTOPRAZOLE 40 MG (PROTONIX) TAB PO SCH (08:58)
[2021-04-07] MEDS: polyethylene glycoL POWDER 17 GM (MIRALAX) PACK PO SCH (08:59)
[2021-04-07] MEDS: TAMOXIFEN 10 MG (NOLVADEX) TAB PO SCH (08:59)
[2021-04-07 12:00] VITALS: BP 131/76
[2021-04-07] MEDS: NS IV 1000 ML 1,000 ML IV SCH (13:05)
[2021-04-07 15:48] VITALS: BP 130/73
[2021-04-07 19:38] VITALS: BP 119/71
[2021-04-07 23:51] VITALS: BP 119/80
[2021-04-08 04:00] VITALS: BP 119/77
[2021-04-08] MEDS: oxyCODONE/APAP 10/325MG (PERCOCET 10) TABLET PO PRN ×4 (04:19→17:08)
[2021-04-08] MEDS: NS IV 1000 ML 1,000 ML IV SCH (06:24)
[2021-04-08] MEDS ORDERED: POLY17PO54 PO (07:02)
[2021-04-08] MEDS ORDERED: CYCL10TA9 PO (07:02)
[2021-04-08] MEDS ORDERED: ALPR.25T PO (07:02)
[2021-04-08] MEDS ORDERED: OXC40TCR PO ×2 (07:02→13:16)
[2021-04-08] MEDS ORDERED: DOCU100C37 PO (07:02)
[2021-04-08] MEDS ORDERED: TAMO10TA10 PO (07:02)
[2021-04-08] MEDS ORDERED: OXYC1TAB12 PO (07:02)
--- NOTE | 2021-04-08 07:06 | Discharge Inst-Simple/Standard ---
Discharge Inst-Standard Reconcile Patient Problems Problems Reviewed?: Yes Discharge Medications New, Converted or Re-Newed RX: Transmitted to Pharmacy ([facility]) Patient Instructions/Follow Up Plan of Care/Instructions/FU: Dr Bocanegra in 1 week Activity as Tolerated: Yes Discharge Diet: Regular Diet Return to [facility]: Worsening pain, significant shortness of breath, fever greater than 100.5 GLADIS GRIGGS MD Apr 08, 2021 07:06
--- NOTE | 2021-04-08 07:09 | Discharge Summary ---
Diagnosis/Chief Complaint Date of Admission Mar 11, 2021 at 13:02 Date of Discharge Discharge Date: Apr 08, 2021 Admission Diagnosis Admission Diagnosis 1. 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 Intractable pain due to the metastasis 3. Nutritional status 4. HTN-history of Discharge Diagnosis 1. 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 Intractable pain due to the metastasis 3. Nutritional status 4. Dyspepsia 5. HTN-history of 6. Constipation most likely due to inactivity as well as narcotic usage 7. Urinary tract infection diagnosed March 28 Discharge Summary Hospital Course Was the Problem List Reviewed?: Yes Hospital Course 1. 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 Intractable pain due to the metastasis -Dilaudid HALVER MACHINE OPERATOR pump 03/14 -HALVER MACHINE OPERATOR pump otherwise no change 03/15 -HALVER MACHINE OPERATOR pump still available 03/18 -still requiring HALVER MACHINE OPERATOR pump as scheduled 03/21 -Will DC Johnson catheter since her pain level has improved and she can now go to the bathroom herself most likely 03/25 -switch to po long acting pain meds this week. 04/04 -Pain management going well. Soon to be on only po meds for pain 3. Nutritional status -check CMP as well as check her weight weekly. 03/15 -protein and albumin stable -Her weight is pending 04/01 -Check weight 4. Dyspepsia -on pepcid and protonix 5. HTN-history of -she is currently stable with bp 6. Constipation most likely due to inactivity as well as narcotic usage 03/29 -Patient may need enema today 04/04-constipation resolved. 7. Urinary tract infection diagnosed March 28 -currently on ceftriaxone 1 g daily -Urine culture pending 04/01 -E coli by urine culture -will switch to cephalexin 500 tid x 4 additional days 04/04 -doing well Return to Dr Bocanegra in 1 week for Faslodex injection. Procedures None. Consultations Dr Bocanegra (Oncology) Discharge Physical Examination Allergies: Coded Allergies: No Known Drug Allergies (Unverified , 03/11/21) Vitals & I&Os Vital Signs Date Time Temp Pulse Resp B/P (MAP) Pulse Ox O2 Delivery O2 Flow Rate FiO2 04/08/21 06:00 20 04/08/21 04:49 36.9 04/08/21 04:00 109 119/77 (91) 93 Room Air General Appearance: No Acute Distress Respiratory: Clear to Auscultation Cardiovascular: Regular Rate (with rate 100) Discharge Home Medications Reviewed and agree with Discharge Medication list on patient's Discharge Instruction sheet Instructions to Patient/Family Please see electronic discharge instructions given to patient. GLADIS GRIGGS MD Apr 08, 2021 07:09
--- NOTE | 2021-04-08 07:20 | Therapy Team Discharge Summary ---
Therapy Discharge Summary Discharge Recommendations Date of Discharge Physical Therapy Patient participated with skilled PT to address functional strength and mobility to return to home with family and home health. Goals address and attained. Patient, when pain is under control, demonstrated Good balance, SBA to i ndependent with bed mobility, transfers and ambulation with FWW >200'. Patient requires time to complete tasks and is able to perform gross motor skills without difficulty. Patient to dismiss to home with home health and family assist. Occupational Therapy Decreased Activ Tolerance, Impaired Self-Care Skills PT Guest Services Lead Goals Care Home Goals PT Guest Services Lead Goals Time Frame: Apr 06, 2021 Roll Left to Right (QC): 4 (MET) Sit to Lying (QC): 4 (MET) Lying-Sitting on Side/Bed(QC): 4 (MET) Sit to Stand (QC): 4 (met 03/31/21) Chair/Piv-bs-Wakzq Xfer(QC): 4 (met 03/31/21) Car Transfer (QC): 4 (met 04/06/21) Does the Patient Walk: No and Walking Goal IS indicated Walk 10 feet (QC): 3 (MET) Walk 10ft-Uneven Surface(QC): 88 Walk 50ft with 2 Turns (QC): 88 Walk 150 ft (QC): 88 Wheel 50 feet with 2 turns (QC: 88 1 Step (curb) (QC): 9 4 Steps (QC): 9 12 Steps (QC): 9 Picking up an Object (QC): 88 OT Care Home Goals Care Home Goals Time Frame: Apr 17, 2021 Eating (QC): 6 Oral Hygiene (QC): 5 Shower/Bathe Self (QC): 3 Upper Body Dressing (QC): 5 Lower Body Dressing (QC): 3 On/Off Footwear (QC): 3 Toileting Hygiene (QC): 3 Toilet/Commode Transfer (QC): 4 Additional Goals: 1-Demonstrate ADL Tasks, 2-Verbalize Understanding, 3- ImproveStrength/Radha 1=Demonstrate adherence to instructed precautions during ADL tasks. 2=Patient will verbalize/demonstrate understanding of assistive d evices/modifications for ADL. 3=Patient will improve strength/tolerance for activity to enable patient to perform ADL's. JAISON QUINN PT Apr 08, 2021 07:20
[2021-04-08] MEDS ORDERED: ASPI-1238 PO (07:39)
[2021-04-08 08:00] VITALS: BP 125/74
[2021-04-08] MEDS: oxyCODONE ER 40 MG (oxyCONTIN CR) TAB PO SCH (08:12)
[2021-04-08] MEDS: FAMOTIDINE 20 MG (PEPCID) TABLET PO SCH (09:05)
[2021-04-08] MEDS: DOCUSATE SODIUM 100 MG (COLACE) CAP PO SCH (09:05)
[2021-04-08] MEDS: PANTOPRAZOLE 40 MG (PROTONIX) TAB PO SCH (09:05)
[2021-04-08] MEDS: ASPIRIN E.C. 81 MG (ECOTRIN) TAB PO SCH (09:05)
[2021-04-08] MEDS: polyethylene glycoL POWDER 17 GM (MIRALAX) PACK PO SCH (09:05)
[2021-04-08] MEDS: TAMOXIFEN 10 MG (NOLVADEX) TAB PO SCH (09:59)
--- NOTE | 2021-04-08 11:38 | Occupational Ther Daily Note ---
OT Current Status-Daily Note Subjective Pt alert, lying in bed. Pt states that she is very tired today. Agrees to therapy while supine in bed. Did not c/o pain though demonstrated signs of pain. Mental Status/Objective Patient Orientation: Person, Place, Time, Situation Attachments: IV ADL-Treatment Pt stated that she had taken a shower on Thursday and did not want to shower today. Declined donning clothing due to not having warm clothing as of yet, family will bring later today. Declined oral care, stating that she was going to have a meal very soon (breakfast came during session). Pt reported that she had completed all upper body and to knees sitting on shower bench then assist to complete all other areas, standing using grabbar to stabilize and assist to cleanse buttocks. Pt has demonstrated independence with oral care sitting at sink in previous sessions. Pt stated that she has purchased sock aide and oil gauger for use in lower body dressing. Pt has been educated on AE for dressing and has demonstrated understanding in previous sessions. Pt demonstrated independence with bed mobility with HOB elevated and bed rails. Independent with eating. After session, pt lying in bed with call light/phone in reach. All needs met in room. Therapy Code Descriptions/Definitions Functional [place] Measure: 0=Not Assessed/NA 4=Minimal Assistance 1=Total Assistance 5=Supervision or Setup 2=Maximal Assistance 6=Modified [place] 3=Moderate Assistance 7=Complete IndependenceSCALE: Activities may be completed with or without assistive devices. 5-Pczkhjnebi-wwbnhdo completes the activity by him/herself with no assistance from a helper. 5-Set-up or Clean-up Assistance-helper sets up or cleans up; patient completes activity. [place] assists only prior to or following the activity. 4-Supervision or Touching Assistance-helper provides verbal cues and/or touching/steadying and/or contact guard assistance as patient completes activit y. Assistance may be provided throughout the activity or intermittently. 3-Partial/Moderate Assistance-helper does LESS THAN HALF the effort. [place] lifts, holds or supports trunk or limbs, but provides less than half the effort. 2-Substantial/Maximal Assistance-helper does MORE THAN HALF the effort. [place] lifts or holds trunk or limbs and provides more than half the effort. 9-Beygbrefs-xwvvjn does ALL the effort. Patient does none of the effort to complete the activity. Or, the assistance of 2 or more helpers is required for the patient to complete the activity. If activity was not attempted, code reason: 7-Patient Refused. 9-Not Applicable-not attempted and the patient did not perform the activity before the current illness, exacerbation or injury. 10-Not Attempted due to Environmental Limitations-(lack of equipment, weather restraints, etc.). 88-Not Attempted due to Medical Conditions or Safety Concerns. Eating (QC): 6 Oral Hygiene (QC): 6 Bathing Location: L Arm, R Arm, L Upper Leg, R Upper Leg, Chest, Abdomen Shower/Bathe Self (QC): 3 (mod A) Upper Body Dressing (QC): 7 Lower Body Dressing (QC): 7 On/Off Footwear: 3 Toileting Hygiene (QC): 4 (Previous session, pt able to complete with SBA for s afety.) OT [place] Goals [place] Goals Time Frame: Apr 17, 2021 Eating (QC): 6 (met) Oral Hygiene (QC): 5 (met) Toileting Hygiene (QC): 3 (met) Shower/Bathe Self (QC): 3 (met) Upper Body Dressing (QC): 5 Lower Body Dressing (QC): 3 On/Off Footwear (QC): 3 Additional Goals: 1-Demonstrate ADL Tasks, 2-Verbalize Understanding, 3- ImproveStrength/Radha 1=Demonstrate adherence to instructed precautions during ADL tasks. 2=Patient will verbalize/demonstrate understanding of assistive devices/modifications for ADL. 3=Patient will improve strength/tolerance for activity to enable patient to perform ADL's. OT Education/Plan Problem List/Assessment Assessment: Decreased Activ Tolerance, Decreased UE Strength, Impaired Self- Care Skills Pt would benefit from skilled OT services in order to increase safety and independence with ADLs, education on AE for LE dressing in order to minimize pain, and activity modification education. Discharge Recommendations Plan/Recommendations: Continue POC (pt to discharge today) Treatment Plan/Plan of Care Patient would benefit from OT for education, treatment and training to promote independence in ADL's, mobility, safety and/or upper extremity function for ADL's. Plan of Care: ADL Retraining, Functional Mobility, UE Funct Exercise/Act Treatment Duration: Apr 05, 2021 Frequency: 5 times per week Estimated Hrs Per Day: .25 hour per day Agreement: Yes Rehab Potential: Fair Time/GCodes Start Time: 10:00 Stop Time: 10:15 Total Time Billed (hr/min): 15 Billed Treatment Time 1 visit-FA 1 (15 min) GERARDO DAMON Apr 08, 2021 11:38
[2021-04-08 16:10] VITALS: BP 132/68
--- NOTE | 2021-04-09 08:43 | Therapy Team Discharge Summary ---
Therapy Discharge Summary Discharge Recommendations Date of Discharge Apr 08, 2021 at 17:36 Occupational Therapy Pt admitted SW due to metastatic breast cancer and debility. Within a month of discharge, pt was requiring total assistance with showering, dressing and toileting, set up with eating. Prior to requiring total assist, pt required SBA with ADLs, but had progressively declined. Upon initial evaluation, pt was independent with eating, required set up assistance oral care, total assist showering due to pain, min A upper body dressing, total assist footwear and t oileting. She declined LE dressing. OT txs focused on increasing BUE Strength and activity tolerance, increasing safety and independence with ADLs and functional mobility and education on AE for LE dressing. At discharge, pt was independent with eating and oral care, required mod A showering, min A footwear and SBA toileting. Pt declined UBD/LBD. Pt made functional progress towards goals, meeting LTGs for eating, oral care, showering, footwear and toileting. Pt discharged from facility, d/c from OT. Decreased Activ Tolerance, Decreased UE Strength, Impaired Self-Care Skills PT Engine House Helper Goals Engine House Helper Goals PT Prison Goals Time Frame: Apr 06, 2021 Roll Left to Right (QC): 4 (MET) Sit to Lying (QC): 4 (MET) Lying-Sitting on Side/Bed(QC): 4 (MET) Sit to Stand (QC): 4 (met 03/31/21) Chair/Lot-da-Feltl Xfer(QC): 4 (met 03/31/21) Car Transfer (QC): 4 (met 04/06/21) Does the Patient Walk: No and Walking Goal IS indicated Walk 10 feet (QC): 3 (MET) Walk 10ft-Uneven Surface(QC): 88 Walk 50ft with 2 Turns (QC): 88 Walk 150 ft (QC): 88 Wheel 50 feet with 2 turns (QC: 88 1 Step (curb) (QC): 9 4 Steps (QC): 9 12 Steps (QC): 9 Picking up an Object (QC): 88 OT Prison Goals Prison Goals Time Frame: Apr 17, 2021 Eating (QC): 6 (met) Oral Hygiene (QC): 5 (met) Shower/Bathe Self (QC): 3 (met) Upper Body Dressing (QC): 5 Lower Body Dressing (QC): 3 On/Off Footwear (QC): 3 (met) Toileting Hygiene (QC): 3 (met) Toilet/Commode Transfer (QC): 4 Additional Goals: 1-Demonstrate ADL Tasks, 2-Verbalize Understanding, 3-Improv eStrength/Radha 1=Demonstrate adherence to instructed precautions during ADL tasks. 2=Patient will verbalize/demonstrate understanding of assistive devices/modifications for ADL. 3=Patient will improve strength/tolerance for activity to enable patient to p erform ADL's. HO GUTHRIE OT Apr 09, 2021 08:43
== END 2021-04-08 17:36 | disposition home health service (06) | DRG 516 ==
LOC: 4TH 13:02
PROVIDERS: ADMIT Family Medicine; ATTEND Family Medicine
PROC: 02HV33Z Insertion of Infusion Device into Superior Vena Cava, Percutaneous Approach (ICD-10-PCS; 2021-03-13)
PROC: 0JH60WZ Insertion of Totally Implantable Vascular Access Device into Chest Subcutaneous Tissue and Fascia, Open Approach (ICD-10-PCS; principal; 2021-03-13 16:55)
DX: C79.51 Secondary malignant neoplasm of bone (principal); N39.0 Urinary tract infection, site not specified; G89.3 Neoplasm related pain (acute) (chronic); C50.919 Malignant neoplasm of unspecified site of unspecified female breast; R42 Dizziness and giddiness; R10.13 Epigastric pain; K59.03 Drug induced constipation; E78.00 Pure hypercholesterolemia, unspecified; I10 Essential (primary) hypertension; K21.9 Gastro-esophageal reflux disease without esophagitis; K57.90 Diverticulosis of intestine, part unspecified, without perforation or abscess without bleeding; M19.91 Primary osteoarthritis, unspecified site; T40.605A Adverse effect of unspecified narcotics, initial encounter; B96.20 Unspecified Escherichia coli [E. coli] as the cause of diseases classified elsewhere; Z87.891 Personal history of nicotine dependence
CPT/HCPCS: 36415; 71045; 76000; 77336; 77402; 77417; 77470; 80053; 81000; 85007; 85025; 85027; 87077; 87081; 87088; 87186; 94760

== ENCOUNTER 2021-05-07 13:41 | Outpatient (RCR) | payer MEDICARE ==
[2021-04-09 15:17] LABS: BASOPHILS % (AUTO) 0 % (0-10); EOSINOPHILS % (AUTO) 0 % (0-10); HEMATOCRIT 33 % (35-52); HEMOGLOBIN 10.4 g/dL (11.5-16.0); LYMPHOCYTES # (AUTO) 0.8 X 10^3 (1.0-4.0); LYMPHOCYTES % (AUTO) 16 % (12-44); MEAN CORPUSCULAR HEMOGLOBIN 31 pg (25-34); MEAN CORPUSCULAR HGB CONC 31 g/dL (32-36); MEAN CORPUSCULAR VOLUME 97 fL (80-99); MONOCYTES # (AUTO) 0.4 X 10^3 (0.0-1.0); MONOCYTES % (AUTO) 8 % (0-12); NEUTROPHILS # (AUTO) 3.6 X 10^3 (1.8-7.8); NEUTROPHILS % (AUTO) 75 % (42-75); PLATELET COUNT 644 10^3/uL (130-400); WHITE BLOOD COUNT 4.8 10^3/uL (4.3-11.0)
[2021-04-09 15:35] LABS: ALBUMIN 2.6 GM/DL (3.2-4.5); BILIRUBIN,TOTAL 0.6 MG/DL (0.1-1.0); CREATININE SERUM 0.48 MG/DL (0.60-1.30); POTASSIUM 3.7 MMOL/L (3.6-5.0); TOTAL PROTEIN 5.6 GM/DL (6.4-8.2)
[~2021-05-07 13:41] MED LIST changes: +ALPR.25T PO; +ASPI-1238 PO; +CYCL10TA25 PO; +DOCU100C37 PO; +FULVESTRANT 250 MG/5 ML SYR (CANCER CENTER) IM SCH; -LISI1TAB26 PO; +LISI1TAB48 PO; +OXC40TCR PO; +OXYC1TAB12 PO; +POLY17PO54 PO; +TAMO10TA10 PO; +morphine INJ 4 MG/ML 1 ML (CANCER CTR) IV PRN; +morphine INJ 4 MG/ML 1 ML (CANCER CTR) ONE
[2021-05-07 13:55] LABS: BASOPHILS # (AUTO) 0.1 10^3/uL (0.0-0.1); BASOPHILS % (AUTO) 1 % (0-10); EOSINOPHILS # (AUTO) 0.1 10^3/uL (0.0-0.3); EOSINOPHILS % (AUTO) 1 % (0-10); HEMATOCRIT 38 % (35-52); LYMPHOCYTES # (AUTO) 1.2 10^3/uL (1.0-4.0); LYMPHOCYTES % (AUTO) 13 % (12-44); MEAN CORPUSCULAR HEMOGLOBIN 31 pg (25-34); MEAN CORPUSCULAR HGB CONC 32 g/dL (32-36); MEAN CORPUSCULAR VOLUME 97 fL (80-99); MEAN PLATELET VOLUME 9.3 fL (9.0-12.2); MONOCYTES # (AUTO) 0.4 10^3/uL (0.0-1.0); MONOCYTES % (AUTO) 5 % (0-12); NEUTROPHILS # (AUTO) 7.4 10^3/uL (1.8-7.8); NEUTROPHILS % (AUTO) 81 % (42-75); PLATELET COUNT 507 10^3/uL (130-400); WHITE BLOOD COUNT 9.1 10^3/uL (4.3-11.0)
[2021-05-07 14:17] LABS: ALBUMIN 2.8 GM/DL (3.2-4.5); BILIRUBIN,TOTAL 0.5 MG/DL (0.1-1.0); CALCIUM 8.9 MG/DL (8.5-10.1); CREATININE SERUM 0.64 MG/DL (0.60-1.30); POTASSIUM 3.8 MMOL/L (3.6-5.0); TOTAL PROTEIN 6.4 GM/DL (6.4-8.2)
== END 2021-06-03 | disposition home or self-care (01) ==
LOC: ONC 13:41
PROVIDERS: ATTEND Internal Medicine Hematology & Oncology
DX: Z51.11 Encounter for antineoplastic chemotherapy (principal); M89.9 Disorder of bone, unspecified; I10 Essential (primary) hypertension; Z72.0 Tobacco use
CPT/HCPCS: 96375; G0463; 80053; 85025; 86300; 96402; 99204

== ENCOUNTER → 2021-05-20 | Outpatient (CLI) | payer MEDICARE ==
[~2021-05-20] MED LIST changes: -FULVESTRANT 250 MG/5 ML SYR (CANCER CENTER) IM SCH; -morphine INJ 4 MG/ML 1 ML (CANCER CTR) IV PRN; -morphine INJ 4 MG/ML 1 ML (CANCER CTR) ONE
== END ==
LOC: RAD 14:18
PROVIDERS: ATTEND Family Medicine
DX: R00.0 Tachycardia, unspecified (principal)
CPT/HCPCS: 93005

== ENCOUNTER 2021-06-06 14:07 | Outpatient (RCR) | payer MEDICARE ==
[2021-06-06 14:27] LABS: BASOPHILS # (AUTO) 0.1 10^3/uL (0.0-0.1); BASOPHILS % (AUTO) 1 % (0-10); EOSINOPHILS # (AUTO) 0.2 10^3/uL (0.0-0.3); EOSINOPHILS % (AUTO) 3 % (0-10); HEMATOCRIT 39 % (35-52); HEMOGLOBIN 12.1 g/dL (11.5-16.0); LYMPHOCYTES # (AUTO) 1.3 10^3/uL (1.0-4.0); LYMPHOCYTES % (AUTO) 22 % (12-44); MEAN CORPUSCULAR HEMOGLOBIN 31 pg (25-34); MEAN CORPUSCULAR HGB CONC 31 g/dL (32-36); MEAN CORPUSCULAR VOLUME 100 fL (80-99); MEAN PLATELET VOLUME 10.3 fL (9.0-12.2); MONOCYTES # (AUTO) 0.6 10^3/uL (0.0-1.0); MONOCYTES % (AUTO) 9 % (0-12); NEUTROPHILS # (AUTO) 3.9 10^3/uL (1.8-7.8); NEUTROPHILS % (AUTO) 66 % (42-75); PLATELET COUNT 310 10^3/uL (130-400); WHITE BLOOD COUNT 5.9 10^3/uL (4.3-11.0)
[2021-06-06 14:42] LABS: ALBUMIN 3.3 GM/DL (3.2-4.5); BILIRUBIN,TOTAL 0.4 MG/DL (0.1-1.0); CREATININE SERUM 0.73 MG/DL (0.60-1.30); POTASSIUM 3.8 MMOL/L (3.6-5.0); TOTAL PROTEIN 6.4 GM/DL (6.4-8.2)
[2021-06-06] MEDS ORDERED: FULVESTRANT 250 MG/5 ML SYR (CANCER CENTER) IM SCH (14:45)
== END 2021-06-07 ==
LOC: ONC 14:07
PROVIDERS: ATTEND Internal Medicine Hematology & Oncology
DX: Z51.11 Encounter for antineoplastic chemotherapy (principal); C50.919 Malignant neoplasm of unspecified site of unspecified female breast; C79.51 Secondary malignant neoplasm of bone; I10 Essential (primary) hypertension; Z72.0 Tobacco use
CPT/HCPCS: 80053; 85025; 86300; 96372; G0463; 99213

== ENCOUNTER → 2021-06-12 | Outpatient (CLI) | payer MEDICARE ==
--- NOTE | 2021-06-12 14:22 | Diagnostic Imaging Report ---
PROCEDURE: US carotid duplex, bilateral. TECHNIQUE: Multiple real-time grayscale images were obtained over the carotid arteries in various projections, bilaterally. Additional spectral analysis and color Doppler duplex images were also obtained. INDICATION: Dizziness COMPARISON: None available. FINDINGS: Mild amount of plaque is identified within the bilateral carotid arterial systems. Peak systolic velocities throughout the bilateral carotid arterial systems are within normal limits. Additionally, the bilateral internal carotid artery to common carotid artery ratios are within normal limits. Antegrade flow within the bilateral vertebral arteries. IMPRESSION: No evidence of hemodynamically significant stenosis within the bilateral carotid arterial systems. Antegrade flow in bilateral vertebral arteries. Parameters based on the consensus panel [employer]ian-Scale and Doppler ultrasound criteria published April 2003, Radiology, Volume 229. DOPPLER (peak systolic velocity M/S Right Left CCA .58 .51 ICA Proximal .51 .42 ICA Mid .70 .51 ICA Distal .67 .43 RATIO 1.22 1.0 ECA 1.09 .53 VERT .55 .53 Dictated by: Dictated on workstation # [id number]
== END ==
LOC: RAD 13:00
PROVIDERS: ATTEND Family Medicine
DX: R42 Dizziness and giddiness (principal)
CPT/HCPCS: 93880

== ENCOUNTER 2021-07-02 09:35 | Outpatient (RCR) | payer MEDICARE, MEDICAID ==
[~2021-07-02 09:35] MED LIST changes: -BARIUM SUSPENSION 2.1% (VANILLA SILQ) 450 ML PO ONE; -HOLD METFORMIN - RECEIVED CONTRAST 20 ML VIAL IV SCH; -IOHEXOL 350 MG/ML 100 ML (OMNIPAQUE 350) VIAL IV ONE; -NS 100 ML (IVPB) BAG IV ONE
[2021-07-02 09:57] LABS: BASOPHILS % (AUTO) 1 % (0-10); EOSINOPHILS # (AUTO) 0.2 10^3/uL (0.0-0.3); EOSINOPHILS % (AUTO) 3 % (0-10); HEMATOCRIT 39 % (35-52); HEMOGLOBIN 12.4 g/dL (11.5-16.0); LYMPHOCYTES % (AUTO) 17 % (12-44); MEAN CORPUSCULAR HEMOGLOBIN 32 pg (25-34); MEAN CORPUSCULAR HGB CONC 32 g/dL (32-36); MEAN CORPUSCULAR VOLUME 98 fL (80-99); MONOCYTES # (AUTO) 0.4 10^3/uL (0.0-1.0); MONOCYTES % (AUTO) 6 % (0-12); NEUTROPHILS # (AUTO) 4.4 10^3/uL (1.8-7.8); NEUTROPHILS % (AUTO) 72 % (42-75); PLATELET COUNT 326 10^3/uL (130-400); WHITE BLOOD COUNT 6.1 10^3/uL (4.3-11.0)
[2021-07-02 10:21] LABS: ALBUMIN 3.6 GM/DL (3.2-4.5); BILIRUBIN,TOTAL 0.6 MG/DL (0.1-1.0); CREATININE SERUM 0.71 MG/DL (0.60-1.30); POTASSIUM 4.1 MMOL/L (3.6-5.0); TOTAL PROTEIN 6.5 GM/DL (6.4-8.2)
== END 2021-07-04 10:55 | disposition home or self-care (01) ==
LOC: ONC 09:35
PROVIDERS: ATTEND Internal Medicine Hematology & Oncology
DX: C50.919 Malignant neoplasm of unspecified site of unspecified female breast (principal); C79.51 Secondary malignant neoplasm of bone; I10 Essential (primary) hypertension; Z72.0 Tobacco use
CPT/HCPCS: 36591; 80053; 85025

== ENCOUNTER → 2021-07-02 | Outpatient (CLI) | payer MEDICARE ==
[~2021-07-02] MED LIST changes: +BARIUM SUSPENSION 2.1% (VANILLA SILQ) 450 ML PO ONE; +HOLD METFORMIN - RECEIVED CONTRAST 20 ML VIAL IV SCH; +IOHEXOL 350 MG/ML 100 ML (OMNIPAQUE 350) VIAL IV ONE; +NS 100 ML (IVPB) BAG IV ONE
--- NOTE | 2021-07-02 17:21 | Diagnostic Imaging Report ---
PROCEDURE: CT chest with contrast, CT abdomen and pelvis with and without contrast. TECHNIQUE: Pre and post intravenous contrast axial imaging of the abdomen and pelvis and post contrast axial imaging of the chest were performed. Auto Exposure Controls were utilized during the CT exam to meet ALARA standards for radiation dose reduction. INDICATION: Breast cancer with osseous metastases. COMPARISON is made with prior CT chest from 02/14/[address] abdomen and pelvis study from 02/05/2021. CT CHEST: A right chest wall port has the tip near the SVC right atrial junction. No axillary lymphadenopathy is detected. No mediastinal or hilar lymphadenopathy is detected. There is no pericardial or pleural fluid identified. Tiny subpleural nodule right upper lobe appears stable when compared with prior study. No pulmonary masses or infiltrates are seen. Osteosclerotic lesions throughout the thoracic spine involving vertebral bodies and posterior elements are noted consistent with osteoblastic metastatic disease. There is an osteoblastic lesion in the medial right clavicle. Several sclerotic lesions in the sternum are noted and appear increased since the prior CT. IMPRESSION: 1. No evidence of thoracic lymphadenopathy or pulmonary metastatic disease. There are numerous osseous blastic lesions consistent with metastatic disease. CT ABDOMEN AND PELVIS: Low-attenuation lesions within the liver appear stable and most likely cysts. Gallbladder is unremarkable. There is no biliary ductal dilatation. The pancreas and spleen are unremarkable. No adrenal mass is identified. Kidneys are unremarkable. Aorta is nonaneurysmal. No central retroperitoneal or mesenteric lymphadenopathy is identified. The small and large bowel loops appear to be normal caliber. There is no obstruction. No free fluid or fluid collection is seen. There is anastomoses in the region of the sigmoid colon. The uterus and bladder are unremarkable. Sclerotic lesions in the bony pelvis as as well as right acetabulum are noted. There are numerous sclerotic lesions throughout the lumbar spine consistent with osteoblastic metastatic disease. IMPRESSION: 1. Osseous metastatic disease. 2. No evidence of abdominal or pelvic lymphadenopathy or nonosseous metastatic disease. Dictated by: Dictated on workstation # [id number]
== END ==
LOC: RAD 10:15
PROVIDERS: ATTEND Internal Medicine Hematology & Oncology
DX: C50.919 Malignant neoplasm of unspecified site of unspecified female breast (principal); C79.51 Secondary malignant neoplasm of bone
CPT/HCPCS: 71260; 74178

== ENCOUNTER 2021-07-09 10:00 | Outpatient (RCR) | payer MEDICARE, MEDICAID ==
[~2021-07-09 10:00] MED LIST changes: +FULVESTRANT 250 MG/5 ML SYR (CANCER CENTER) IM SCH
[2021-07-09] MEDS ORDERED: ZOLEDRONIC ACID (CANCER CTR) 4 MG in NS (IVPB) CANCER CENTER 100 ML IV SCH (11:45)
== END 2021-08-05 | disposition home or self-care (01) ==
LOC: ONC 10:00
PROVIDERS: ATTEND Internal Medicine Hematology & Oncology
DX: Z51.11 Encounter for antineoplastic chemotherapy (principal); Z45.2 Encounter for adjustment and management of vascular access device; C50.919 Malignant neoplasm of unspecified site of unspecified female breast; C79.51 Secondary malignant neoplasm of bone; I10 Essential (primary) hypertension; Z72.0 Tobacco use
CPT/HCPCS: 96365; 96402; G0463; 36591

== ENCOUNTER 2021-08-09 14:27 | Outpatient (RCR) | payer MEDICARE, MEDICAID ==
[2021-08-09 14:36] LABS: BASOPHILS # (AUTO) 0.1 10^3/uL (0.0-0.1); BASOPHILS % (AUTO) 1 % (0-10); EOSINOPHILS # (AUTO) 0.2 10^3/uL (0.0-0.3); EOSINOPHILS % (AUTO) 3 % (0-10); HEMATOCRIT 40 % (35-52); HEMOGLOBIN 12.8 g/dL (11.5-16.0); LYMPHOCYTES # (AUTO) 1.3 10^3/uL (1.0-4.0); LYMPHOCYTES % (AUTO) 19 % (12-44); MEAN CORPUSCULAR HEMOGLOBIN 31 pg (25-34); MEAN CORPUSCULAR HGB CONC 32 g/dL (32-36); MEAN CORPUSCULAR VOLUME 99 fL (80-99); MEAN PLATELET VOLUME 9.7 fL (9.0-12.2); MONOCYTES # (AUTO) 0.4 10^3/uL (0.0-1.0); MONOCYTES % (AUTO) 7 % (0-12); NEUTROPHILS # (AUTO) 4.8 10^3/uL (1.8-7.8); NEUTROPHILS % (AUTO) 71 % (42-75); PLATELET COUNT 342 10^3/uL (130-400); WHITE BLOOD COUNT 6.8 10^3/uL (4.3-11.0)
[2021-08-09 14:52] LABS: ALBUMIN 3.6 GM/DL (3.2-4.5); POTASSIUM 4.1 MMOL/L (3.6-5.0)
[2021-08-09 14:53] LABS: CALCIUM 8.8 MG/DL (8.5-10.1)
[2021-08-09 14:54] LABS: TOTAL PROTEIN 6.6 GM/DL (6.4-8.2)
[2021-08-09 14:56] LABS: BILIRUBIN,TOTAL 0.3 MG/DL (0.1-1.0)
[2021-08-09 14:58] LABS: CREATININE SERUM 0.78 MG/DL (0.60-1.30)
== END 2021-09-05 | disposition home or self-care (01) ==
LOC: ONC 14:27
PROVIDERS: ATTEND Internal Medicine Hematology & Oncology
DX: Z51.11 Encounter for antineoplastic chemotherapy (principal); Z45.2 Encounter for adjustment and management of vascular access device; C50.919 Malignant neoplasm of unspecified site of unspecified female breast; C79.51 Secondary malignant neoplasm of bone; I10 Essential (primary) hypertension; Z72.0 Tobacco use
CPT/HCPCS: 80053; 85025; 86300; 96402; G0463; 36415; 99213

== ENCOUNTER → 2021-09-17 | Outpatient (CLI) | payer MEDICARE, MEDICAID ==
[~2021-09-17] MED LIST changes: +CATHETER FLUSH 10 ML SYR IV PRN; -FULVESTRANT 250 MG/5 ML SYR (CANCER CENTER) IM SCH; +HOLD METFORMIN - RECEIVED CONTRAST 20 ML VIAL IV SCH; +IOHEXOL 350 MG/ML 100 ML (OMNIPAQUE 350) VIAL IV ONE; +NS 100 ML (IVPB) BAG IV ONE
--- NOTE | 2021-09-17 13:07 | Diagnostic Imaging Report ---
PROCEDURE: CT chest with contrast, CT abdomen and pelvis with and without contrast. TECHNIQUE: Pre and post intravenous contrast axial imaging of the abdomen and pelvis and post contrast axial imaging of the chest were performed. Auto Exposure Controls were utilized during the CT exam to meet ALARA standards for radiation dose reduction. INDICATION: History of breast cancer. Follow-up. COMPARISON: 07/02/2021.. CT chest: The heart size is within normal limits. No pericardial effusion is present. A right port is visualized with the tip in the cavoatrial juncture. There is no mediastinal, hilar, or axillary lymphadenopathy. The lung windows demonstrate no pulmonary nodules or masses. There are no focal areas of consolidation. No pneumothoraces are present. No central endobronchial obstructing lesions are identified. There are no pleural effusions. Widespread osseous metastatic disease is seen in the thoracic spine. There is stable focal kyphosis of the lower thoracic spine due to height loss in the T8 and T9 vertebral bodies. CT abdomen and pelvis: Stable focal hypoattenuating lesions are seen in the liver, the largest measuring 1.4 cm. No enhancing hepatic lesions. The portal vein is patent. The gallbladder is unremarkable. The liver, spleen, pancreas, adrenal glands, and kidneys have a normal appearance. There is no pathologically enlarged mesenteric or retroperitoneal adenopathy. The bowel loops are nondilated. Prior partial colon resection changes are seen in the sigmoid colon. There is no free air. Sclerotic osseous metastases are again seen throughout the lumbar spine and pelvis. No pathologic fractures identified. There is calcified aortic and iliac atherosclerotic plaque without aneurysm. Ureters and bladder are grossly normal. Trace free fluid is seen in the pelvis. IMPRESSION: 1. Widespread osseous metastatic disease in the chest, abdomen and pelvis. Stable height loss is visualized in the T8 and T9 vertebral bodies. No evidence of acute pathologic fracture. 2. No suspicious pulmonary nodules or focal consolidations in the chest. No pleural effusion. 3. No suspicious solid organ lesions in the abdomen and pelvis. 4. Nonspecific trace free fluid in the pelvis. No evidence of bowel obstruction. No free air. Dictated by: Dictated on workstation # [id number]
== END ==
LOC: RAD 09:15
PROVIDERS: ATTEND Internal Medicine Hematology & Oncology
DX: C50.919 Malignant neoplasm of unspecified site of unspecified female breast (principal); C79.51 Secondary malignant neoplasm of bone
CPT/HCPCS: 71260; 74178

== ENCOUNTER 2021-10-03 10:46 | Outpatient (RCR) | payer MEDICARE, MEDICAID ==
[2021-09-09 10:05] LABS: BASOPHILS # (AUTO) 0.1 10^3/uL (0.0-0.1); BASOPHILS % (AUTO) 1 % (0-10); EOSINOPHILS # (AUTO) 0.2 10^3/uL (0.0-0.3); EOSINOPHILS % (AUTO) 3 % (0-10); HEMATOCRIT 41 % (35-52); HEMOGLOBIN 13.2 g/dL (11.5-16.0); LYMPHOCYTES # (AUTO) 0.9 10^3/uL (1.0-4.0); LYMPHOCYTES % (AUTO) 18 % (12-44); MEAN CORPUSCULAR HEMOGLOBIN 32 pg (25-34); MEAN CORPUSCULAR HGB CONC 32 g/dL (32-36); MEAN CORPUSCULAR VOLUME 98 fL (80-99); MEAN PLATELET VOLUME 9.6 fL (9.0-12.2); MONOCYTES # (AUTO) 0.4 10^3/uL (0.0-1.0); MONOCYTES % (AUTO) 8 % (0-12); NEUTROPHILS # (AUTO) 3.6 10^3/uL (1.8-7.8); NEUTROPHILS % (AUTO) 70 % (42-75); PLATELET COUNT 326 10^3/uL (130-400); WHITE BLOOD COUNT 5.1 10^3/uL (4.3-11.0)
[2021-09-09 10:29] LABS: ALBUMIN 3.9 GM/DL (3.2-4.5); BILIRUBIN,TOTAL 0.6 MG/DL (0.1-1.0); CALCIUM 9.4 MG/DL (8.5-10.1); CREATININE SERUM 0.78 MG/DL (0.60-1.30); TOTAL PROTEIN 6.8 GM/DL (6.4-8.2)
[~2021-10-03 10:46] MED LIST changes: -CATHETER FLUSH 10 ML SYR IV PRN; +FULVESTRANT 250 MG/5 ML (FASLODEX) IM SCH; -HOLD METFORMIN - RECEIVED CONTRAST 20 ML VIAL IV SCH; -IOHEXOL 350 MG/ML 100 ML (OMNIPAQUE 350) VIAL IV ONE; -NS 100 ML (IVPB) BAG IV ONE; +NS IV SCH; +ZOLEDRONIC ACID IV SCH
[2021-10-03 11:29] LABS: BASOPHILS % (AUTO) 1 % (0-10); EOSINOPHILS # (AUTO) 0.1 10^3/uL (0.0-0.3); EOSINOPHILS % (AUTO) 3 % (0-10); HEMATOCRIT 38 % (35-52); HEMOGLOBIN 12.3 g/dL (11.5-16.0); LYMPHOCYTES # (AUTO) 0.8 10^3/uL (1.0-4.0); LYMPHOCYTES % (AUTO) 29 % (12-44); MEAN CORPUSCULAR HEMOGLOBIN 32 pg (25-34); MEAN CORPUSCULAR HGB CONC 33 g/dL (32-36); MEAN CORPUSCULAR VOLUME 98 fL (80-99); MEAN PLATELET VOLUME 9.3 fL (9.0-12.2); MONOCYTES # (AUTO) 0.1 10^3/uL (0.0-1.0); MONOCYTES % (AUTO) 3 % (0-12); NEUTROPHILS # (AUTO) 1.7 10^3/uL (1.8-7.8); NEUTROPHILS % (AUTO) 64 % (42-75); PLATELET COUNT 307 10^3/uL (130-400); WHITE BLOOD COUNT 2.7 10^3/uL (4.3-11.0)
[2021-10-03 11:50] LABS: ALBUMIN 3.7 GM/DL (3.2-4.5); BILIRUBIN,TOTAL 0.5 MG/DL (0.1-1.0); CALCIUM 9.2 MG/DL (8.5-10.1); CREATININE SERUM 0.91 MG/DL (0.60-1.30); POTASSIUM 4.2 MMOL/L (3.6-5.0); TOTAL PROTEIN 6.5 GM/DL (6.4-8.2)
== END 2021-10-05 | disposition home or self-care (01) ==
LOC: ONC 10:46
PROVIDERS: ATTEND Internal Medicine Hematology & Oncology
DX: C50.919 Malignant neoplasm of unspecified site of unspecified female breast (principal); C79.51 Secondary malignant neoplasm of bone; I10 Essential (primary) hypertension; Z72.0 Tobacco use
CPT/HCPCS: 80053; 85025; 86300; 96402; G0463; 36415; 93005; 99213

== ENCOUNTER 2021-10-17 12:46 | Outpatient (RCR) | payer MEDICARE, MEDICAID ==
[2021-10-17 13:23] LABS: BASOPHILS % (AUTO) 1 % (0-10); EOSINOPHILS % (AUTO) 1 % (0-10); HEMATOCRIT 37 % (35-52); HEMOGLOBIN 12.4 g/dL (11.5-16.0); LYMPHOCYTES # (AUTO) 1.1 10^3/uL (1.0-4.0); LYMPHOCYTES % (AUTO) 35 % (12-44); MEAN CORPUSCULAR HEMOGLOBIN 33 pg (25-34); MEAN CORPUSCULAR HGB CONC 34 g/dL (32-36); MEAN CORPUSCULAR VOLUME 97 fL (80-99); MEAN PLATELET VOLUME 9.3 fL (9.0-12.2); MONOCYTES # (AUTO) 0.3 10^3/uL (0.0-1.0); MONOCYTES % (AUTO) 9 % (0-12); NEUTROPHILS # (AUTO) 1.7 10^3/uL (1.8-7.8); NEUTROPHILS % (AUTO) 54 % (42-75); PLATELET COUNT 309 10^3/uL (130-400); WHITE BLOOD COUNT 3.2 10^3/uL (4.3-11.0)
[2021-10-17 13:42] LABS: ALBUMIN 3.9 GM/DL (3.2-4.5); BILIRUBIN,TOTAL 0.5 MG/DL (0.1-1.0); CALCIUM 9.3 MG/DL (8.5-10.1); CREATININE SERUM 0.92 MG/DL (0.60-1.30); POTASSIUM 3.5 MMOL/L (3.6-5.0); TOTAL PROTEIN 6.8 GM/DL (6.4-8.2)
== END 2021-11-05 | disposition home or self-care (01) ==
LOC: ONC 12:46
PROVIDERS: ATTEND Internal Medicine Hematology & Oncology
DX: Z51.11 Encounter for antineoplastic chemotherapy (principal); Z45.2 Encounter for adjustment and management of vascular access device; C50.919 Malignant neoplasm of unspecified site of unspecified female breast; C79.51 Secondary malignant neoplasm of bone; I10 Essential (primary) hypertension; D72.819 Decreased white blood cell count, unspecified; Z72.0 Tobacco use
CPT/HCPCS: 80053; 85025; 86300; 93005; 96367; 96401

== ENCOUNTER 2021-11-27 15:50 | Outpatient (RCR) | payer MEDICARE, MEDICAID ==
[~2021-11-27 15:50] MED LIST changes: -NS IV SCH; -ZOLEDRONIC ACID IV SCH
[2021-11-27 16:51] LABS: ALBUMIN 3.9 GM/DL (3.2-4.5); BILIRUBIN,TOTAL 0.3 MG/DL (0.1-1.0); CREATININE SERUM 0.95 MG/DL (0.60-1.30); POTASSIUM 3.8 MMOL/L (3.6-5.0); TOTAL PROTEIN 6.4 GM/DL (6.4-8.2)
== END 2021-12-05 | disposition home or self-care (01) ==
LOC: ONC 15:50
PROVIDERS: ATTEND Internal Medicine Hematology & Oncology
DX: C50.919 Malignant neoplasm of unspecified site of unspecified female breast (principal); C79.51 Secondary malignant neoplasm of bone; I10 Essential (primary) hypertension; D72.819 Decreased white blood cell count, unspecified; Z72.0 Tobacco use
CPT/HCPCS: 80053; 82378; 96402

== ENCOUNTER 2021-12-16 09:28 | Outpatient (RCR) | payer MEDICARE, MEDICAID ==
[2021-12-16 09:42] LABS: BASOPHILS # (AUTO) 0.1 10^3/uL (0.0-0.1); BASOPHILS % (AUTO) 2 % (0-10); EOSINOPHILS # (AUTO) 0.1 10^3/uL (0.0-0.3); EOSINOPHILS % (AUTO) 3 % (0-10); HEMATOCRIT 35 % (35-52); HEMOGLOBIN 11.9 g/dL (11.5-16.0); LYMPHOCYTES # (AUTO) 0.8 10^3/uL (1.0-4.0); LYMPHOCYTES % (AUTO) 30 % (12-44); MEAN CORPUSCULAR HEMOGLOBIN 36 pg (25-34); MEAN CORPUSCULAR HGB CONC 34 g/dL (32-36); MEAN CORPUSCULAR VOLUME 108 fL (80-99); MONOCYTES # (AUTO) 0.2 10^3/uL (0.0-1.0); MONOCYTES % (AUTO) 9 % (0-12); NEUTROPHILS # (AUTO) 1.6 10^3/uL (1.8-7.8); NEUTROPHILS % (AUTO) 56 % (42-75); PLATELET COUNT 299 10^3/uL (130-400); WHITE BLOOD COUNT 2.8 10^3/uL (4.3-11.0)
[2021-12-16 10:09] LABS: ALBUMIN 3.9 GM/DL (3.2-4.5); BILIRUBIN,TOTAL 0.5 MG/DL (0.1-1.0); CALCIUM 9.6 MG/DL (8.5-10.1); CREATININE SERUM 0.75 MG/DL (0.60-1.30); POTASSIUM 4.1 MMOL/L (3.6-5.0); TOTAL PROTEIN 6.4 GM/DL (6.4-8.2)
== END 2022-01-03 15:43 | disposition home or self-care (01) ==
LOC: ONC 09:28
PROVIDERS: ATTEND Internal Medicine Hematology & Oncology
DX: Z51.11 Encounter for antineoplastic chemotherapy (principal); Z45.2 Encounter for adjustment and management of vascular access device; C50.919 Malignant neoplasm of unspecified site of unspecified female breast; C79.51 Secondary malignant neoplasm of bone; I10 Essential (primary) hypertension; D72.819 Decreased white blood cell count, unspecified; Z72.0 Tobacco use
CPT/HCPCS: 80053; 85025; 86300; 93005; 96402; G0463; 36415

== ENCOUNTER → 2022-01-17 | Outpatient (CLI) | payer MEDICARE, MEDICAID ==
[~2022-01-17] MED LIST changes: -FULVESTRANT 250 MG/5 ML (FASLODEX) IM SCH; +GADOTERATE 0.5 MMOL/ML (CLARISCAN) 15 ML VIAL IV ONE
--- NOTE | 2022-01-17 18:42 | Diagnostic Imaging Report ---
PROCEDURE: MRI right joint lower extremity with and without contrast. TECHNIQUE: Multiplanar, multisequence pre and post contrast-enhanced DEUCE of the right joint lower extremity was accomplished. INDICATION: Right hip pain. Breast cancer. COMPARISON: CT of abdomen of pelvis from 09/17/2021. FINDINGS: There is extensive T1 hypointense blastic metastasis involving the near entirety of the right ilium. The right acetabulum is completely involved by blastic metastasis. A few additional scattered metastases are noted in the inferior left SI joint, left proximal femoral diaphysis and left iliac wing. The visualized portion of lumbar spine also has multiple blastic metastases present. Severe/end-stage degenerative arthritis of right hip is present. There is complete articular cartilage loss throughout the right hip. Small right hip effusion is present with synovitis present throughout the right hip. There is a small focus of subchondral collapse in the anterior aspect of the femoral head that could be due to a small focus of osteonecrosis. Moderate edema is present throughout the femoral head and neck that may obscure a small region of avascular necrosis. The right distal iliopsoas tendon is intact. Proximal hamstring complex is intact with blastic metastases in the ischium. Right gluteus medius is intact. There is full-thickness tear in the posterior insertion of the gluteus medius on the greater trochanter. No free pelvic fluid. IMPRESSION: 1. Extensive blastic skeletal metastases throughout the pelvis, lower lumbar spine and proximal femurs. No pathologic fracture. 2. Severe/end-stage degenerative arthritis of the right hip with diffuse full-thickness articular cartilage loss. Small hip effusion and synovitis is very likely reactive in nature due to the severe degenerative arthritis. 3. There is a potential small region of subchondral collapse from underlying avascular necrosis in the right femoral head. Alternatively, this may be degenerative flattening of the femoral head without underlying AVN. Dictated by: Dictated on workstation # [id number]
== END ==
LOC: RAD 14:45
PROVIDERS: ATTEND Internal Medicine Hematology & Oncology
DX: C50.919 Malignant neoplasm of unspecified site of unspecified female breast (principal); C79.51 Secondary malignant neoplasm of bone; M17.11 Unilateral primary osteoarthritis, right knee
CPT/HCPCS: 73723

== ENCOUNTER → 2022-02-05 | Outpatient (RCR) | payer MEDICARE, MEDICAID ==
[2022-01-10 11:47] LABS: BASOPHILS # (AUTO) 0.1 10^3/uL (0.0-0.1); BASOPHILS % (AUTO) 2 % (0-10); EOSINOPHILS % (AUTO) 1 % (0-10); HEMATOCRIT 35 % (35-52); HEMOGLOBIN 11.9 g/dL (11.5-16.0); LYMPHOCYTES # (AUTO) 0.9 10^3/uL (1.0-4.0); LYMPHOCYTES % (AUTO) 26 % (12-44); MEAN CORPUSCULAR HEMOGLOBIN 39 pg (25-34); MEAN CORPUSCULAR HGB CONC 34 g/dL (32-36); MEAN CORPUSCULAR VOLUME 113 fL (80-99); MEAN PLATELET VOLUME 9.2 fL (9.0-12.2); MONOCYTES # (AUTO) 0.4 10^3/uL (0.0-1.0); MONOCYTES % (AUTO) 11 % (0-12); NEUTROPHILS % (AUTO) 59 % (42-75); PLATELET COUNT 264 10^3/uL (130-400); WHITE BLOOD COUNT 3.3 10^3/uL (4.3-11.0)
[2022-01-10 12:06] LABS: ALBUMIN 3.8 GM/DL (3.2-4.5); BILIRUBIN,TOTAL 0.4 MG/DL (0.1-1.0); CALCIUM 9.1 MG/DL (8.5-10.1); CREATININE SERUM 0.82 MG/DL (0.60-1.30); POTASSIUM 4.3 MMOL/L (3.6-5.0); TOTAL PROTEIN 6.2 GM/DL (6.4-8.2)
[~2022-02-05] MED LIST changes: +FULVESTRANT 250 MG/5 ML (FASLODEX) IM SCH; -GADOTERATE 0.5 MMOL/ML (CLARISCAN) 15 ML VIAL IV ONE; +NS (IVPB) 250 ML ONE; +NS IV SCH; +ZOLEDRONIC ACID IV SCH
== END | disposition home or self-care (01) ==
LOC: ONC 01-10 11:24
PROVIDERS: ATTEND Internal Medicine Hematology & Oncology
DX: Z51.0 Encounter for antineoplastic radiation therapy (principal); C50.919 Malignant neoplasm of unspecified site of unspecified female breast; C79.51 Secondary malignant neoplasm of bone; I10 Essential (primary) hypertension; D72.819 Decreased white blood cell count, unspecified; Z72.0 Tobacco use
CPT/HCPCS: 36415; 77280; 77290; 77295; 77300; 77334; 77417; 77470; 80053; 85025; 86300; 96365; 96402; 96523; 99213

== ENCOUNTER 2022-02-18 08:40 | Outpatient (RCR) | payer MEDICARE, MEDICAID ==
[2022-02-12 09:18] LABS: BASOPHILS # (AUTO) 0.1 10^3/uL (0.0-0.1); BASOPHILS % (AUTO) 2 % (0-10); EOSINOPHILS # (AUTO) 0.1 10^3/uL (0.0-0.3); EOSINOPHILS % (AUTO) 3 % (0-10); HEMATOCRIT 40 % (35-52); HEMOGLOBIN 13.2 g/dL (11.5-16.0); LYMPHOCYTES # (AUTO) 0.8 10^3/uL (1.0-4.0); LYMPHOCYTES % (AUTO) 17 % (12-44); MEAN CORPUSCULAR HEMOGLOBIN 38 pg (25-34); MEAN CORPUSCULAR HGB CONC 33 g/dL (32-36); MEAN CORPUSCULAR VOLUME 115 fL (80-99); MEAN PLATELET VOLUME 9.1 fL (9.0-12.2); MONOCYTES # (AUTO) 0.4 10^3/uL (0.0-1.0); MONOCYTES % (AUTO) 9 % (0-12); NEUTROPHILS # (AUTO) 3.1 10^3/uL (1.8-7.8); NEUTROPHILS % (AUTO) 68 % (42-75); PLATELET COUNT 293 10^3/uL (130-400); WHITE BLOOD COUNT 4.6 10^3/uL (4.3-11.0)
[2022-02-12 09:37] LABS: ALBUMIN 4.1 GM/DL (3.2-4.5); BILIRUBIN,TOTAL 0.3 MG/DL (0.1-1.0); CALCIUM 9.6 MG/DL (8.5-10.1); CREATININE SERUM 1.05 MG/DL (0.60-1.30); POTASSIUM 4.4 MMOL/L (3.6-5.0); TOTAL PROTEIN 7.4 GM/DL (6.4-8.2)
[~2022-02-18 08:40] MED LIST changes: -NS (IVPB) 250 ML ONE; -NS IV SCH; -ZOLEDRONIC ACID IV SCH
== END 2022-03-04 10:51 | disposition home or self-care (01) ==
LOC: ONC 08:40
PROVIDERS: ATTEND Internal Medicine Hematology & Oncology
DX: Z51.0 Encounter for antineoplastic radiation therapy (principal); C50.919 Malignant neoplasm of unspecified site of unspecified female breast; C79.51 Secondary malignant neoplasm of bone; I10 Essential (primary) hypertension; D72.819 Decreased white blood cell count, unspecified; Z72.0 Tobacco use
CPT/HCPCS: 77336; 77417; 80053; 85025; 86300; 96402

== ENCOUNTER 2022-03-10 09:27 | Outpatient (RCR) | payer MEDICARE, MEDICAID ==
[2022-03-10 09:39] LABS: BASOPHILS # (AUTO) 0.1 10^3/uL (0.0-0.1); BASOPHILS % (AUTO) 2 % (0-10); EOSINOPHILS # (AUTO) 0.2 10^3/uL (0.0-0.3); EOSINOPHILS % (AUTO) 5 % (0-10); HEMATOCRIT 37 % (35-52); HEMOGLOBIN 12.2 g/dL (11.5-16.0); LYMPHOCYTES # (AUTO) 0.6 10^3/uL (1.0-4.0); LYMPHOCYTES % (AUTO) 23 % (12-44); MEAN CORPUSCULAR HEMOGLOBIN 38 pg (25-34); MEAN CORPUSCULAR HGB CONC 33 g/dL (32-36); MEAN CORPUSCULAR VOLUME 114 fL (80-99); MONOCYTES # (AUTO) 0.4 10^3/uL (0.0-1.0); MONOCYTES % (AUTO) 15 % (0-12); NEUTROPHILS # (AUTO) 1.5 10^3/uL (1.8-7.8); NEUTROPHILS % (AUTO) 55 % (42-75); PLATELET COUNT 221 10^3/uL (130-400); WHITE BLOOD COUNT 2.8 10^3/uL (4.3-11.0)
[2022-03-10 09:56] LABS: BILIRUBIN,TOTAL 0.6 MG/DL (0.1-1.0); CALCIUM 9.5 MG/DL (8.5-10.1); CREATININE SERUM 0.92 MG/DL (0.60-1.30); POTASSIUM 3.9 MMOL/L (3.6-5.0); TOTAL PROTEIN 6.7 GM/DL (6.4-8.2)
== END 2022-04-07 | disposition home or self-care (01) ==
LOC: ONC 09:27
PROVIDERS: ATTEND Internal Medicine Hematology & Oncology
DX: Z51.11 Encounter for antineoplastic chemotherapy (principal); C50.919 Malignant neoplasm of unspecified site of unspecified female breast; C79.51 Secondary malignant neoplasm of bone; I10 Essential (primary) hypertension; D72.819 Decreased white blood cell count, unspecified; Z72.0 Tobacco use; Z92.3 Personal history of irradiation
CPT/HCPCS: 80053; 85025; 86300; 96402; G0463; 36415

== ENCOUNTER → 2022-04-02 | Outpatient (CLI) | payer MEDICARE, MEDICAID ==
[~2022-04-02] MED LIST changes: +CATHETER FLUSH 10 ML SYR IV PRN; -FULVESTRANT 250 MG/5 ML (FASLODEX) IM SCH; +HOLD METFORMIN - RECEIVED CONTRAST 20 ML VIAL IV SCH; +IOHEXOL 350 MG/ML 100 ML (OMNIPAQUE 350) VIAL IV ONE; +NS 100 ML (IVPB) BAG IV ONE
--- NOTE | 2022-04-02 13:48 | Diagnostic Imaging Report ---
PROCEDURE: CT chest, abdomen, and pelvis with contrast. TECHNIQUE: Multiple contiguous axial images were obtained through the chest, abdomen, and pelvis after the administration of intravenous contrast. Auto Exposure Controls were utilized during the CT exam to meet ALARA standards for radiation dose reduction. INDICATION: Breast carcinoma. COMPARISON: 09/17/2021. FINDINGS: CT CHEST: A right chest wall port has the tip at the SVC/right atrial junction. No axillary lymphadenopathy is detected. No mediastinal or hilar lymphadenopathy is detected. There is no pericardial or pleural fluid identified. No pulmonary nodules or masses are detected. Osteoblastic lesions throughout the thoracic spine as well as the right clavicle, bilateral scapula, bilateral ribs, and sternum are again noted. CT ABDOMEN AND PELVIS: The liver contains circumscribed low-attenuation lesions, too small to characterize but likely cysts. These appear stable. The gallbladder is unremarkable. The intrahepatic bile ducts are somewhat prominent but appear similar to the prior exam. The pancreas and spleen are unremarkable. No adrenal mass is detected. The kidneys are unremarkable. The aorta is nonaneurysmal. No central, retroperitoneal, or mesenteric lymphadenopathy is detected. Small and large bowel loops are of normal caliber. There is no obstruction. There is some trace free fluid in the pelvis. The bladder and uterus are unremarkable. Osteoblastic lesions throughout the lumbar spine, bony pelvis, and proximal femora are again noted. IMPRESSION: 1. No evidence of thoracic, abdominal, or pelvic lymphadenopathy. No pulmonary metastases or solid organ metastases in the abdomen or pelvis are identified. 2. 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 Dictated by: Dictated on workstation # [id number]
== END ==
LOC: RAD 10:13
PROVIDERS: ATTEND Internal Medicine Hematology & Oncology
DX: C50.919 Malignant neoplasm of unspecified site of unspecified female breast (principal); C79.51 Secondary malignant neoplasm of bone
CPT/HCPCS: 71260; 74177

== ENCOUNTER 2022-04-09 10:15 | Outpatient (RCR) | payer MEDICARE, MEDICAID ==
[~2022-04-09 10:15] MED LIST changes: -CATHETER FLUSH 10 ML SYR IV PRN; -DOXY-311 PO; +DOXY-444 PO; +FULVESTRANT 250 MG/5 ML (FASLODEX) IM SCH; -HOLD METFORMIN - RECEIVED CONTRAST 20 ML VIAL IV SCH; -IOHEXOL 350 MG/ML 100 ML (OMNIPAQUE 350) VIAL IV ONE; -NS 100 ML (IVPB) BAG IV ONE; +NS IV SCH; +ZOLEDRONIC ACID IV SCH
[2022-04-09 11:10] LABS: BASOPHILS # (AUTO) 0.1 10^3/uL (0.0-0.1); BASOPHILS % (AUTO) 2 % (0-10); EOSINOPHILS % (AUTO) 1 % (0-10); HEMATOCRIT 36 % (35-52); LYMPHOCYTES # (AUTO) 0.6 10^3/uL (1.0-4.0); LYMPHOCYTES % (AUTO) 15 % (12-44); MEAN CORPUSCULAR HEMOGLOBIN 38 pg (25-34); MEAN CORPUSCULAR HGB CONC 33 g/dL (32-36); MEAN CORPUSCULAR VOLUME 113 fL (80-99); MEAN PLATELET VOLUME 9.5 fL (9.0-12.2); MONOCYTES # (AUTO) 0.4 10^3/uL (0.0-1.0); MONOCYTES % (AUTO) 11 % (0-12); NEUTROPHILS # (AUTO) 2.8 10^3/uL (1.8-7.8); NEUTROPHILS % (AUTO) 71 % (42-75); PLATELET COUNT 266 10^3/uL (130-400); WHITE BLOOD COUNT 3.9 10^3/uL (4.3-11.0)
[2022-04-09 11:29] LABS: ALBUMIN 3.8 GM/DL (3.2-4.5); BILIRUBIN,TOTAL 0.5 MG/DL (0.1-1.0); CREATININE SERUM 0.83 MG/DL (0.60-1.30); POTASSIUM 4.1 MMOL/L (3.6-5.0); TOTAL PROTEIN 6.4 GM/DL (6.4-8.2)
== END 2022-05-07 | disposition home or self-care (01) ==
LOC: ONC 10:15
PROVIDERS: ATTEND Internal Medicine Hematology & Oncology
DX: Z51.11 Encounter for antineoplastic chemotherapy (principal); Z45.2 Encounter for adjustment and management of vascular access device; C50.919 Malignant neoplasm of unspecified site of unspecified female breast; C79.51 Secondary malignant neoplasm of bone; I10 Essential (primary) hypertension; D72.819 Decreased white blood cell count, unspecified; Z72.0 Tobacco use; Z92.3 Personal history of irradiation
CPT/HCPCS: 80053; 85025; 86300; 96365; G0463; 36591

== ENCOUNTER 2022-05-12 09:27 | Outpatient (RCR) | payer MEDICARE, MEDICAID ==
[~2022-05-12 09:27] MED LIST changes: -NS IV SCH; -ZOLEDRONIC ACID IV SCH
[2022-05-12 09:55] LABS: BASOPHILS # (AUTO) 0.1 10^3/uL (0.0-0.1); BASOPHILS % (AUTO) 2 % (0-10); EOSINOPHILS % (AUTO) 1 % (0-10); HEMATOCRIT 36 % (35-52); HEMOGLOBIN 12.1 g/dL (11.5-16.0); LYMPHOCYTES # (AUTO) 0.5 10^3/uL (1.0-4.0); LYMPHOCYTES % (AUTO) 13 % (12-44); MEAN CORPUSCULAR HEMOGLOBIN 38 pg (25-34); MEAN CORPUSCULAR HGB CONC 34 g/dL (32-36); MEAN CORPUSCULAR VOLUME 112 fL (80-99); MEAN PLATELET VOLUME 9.7 fL (9.0-12.2); MONOCYTES # (AUTO) 0.2 10^3/uL (0.0-1.0); MONOCYTES % (AUTO) 5 % (0-12); NEUTROPHILS # (AUTO) 2.9 10^3/uL (1.8-7.8); NEUTROPHILS % (AUTO) 79 % (42-75); PLATELET COUNT 320 10^3/uL (130-400); WHITE BLOOD COUNT 3.7 10^3/uL (4.3-11.0)
[2022-05-12 10:14] LABS: ALBUMIN 4.1 GM/DL (3.2-4.5); BILIRUBIN,TOTAL 0.8 MG/DL (0.1-1.0); CALCIUM 9.4 MG/DL (8.5-10.1); CREATININE SERUM 0.87 MG/DL (0.60-1.30); POTASSIUM 4.2 MMOL/L (3.6-5.0); TOTAL PROTEIN 6.8 GM/DL (6.4-8.2)
== END 2022-06-07 | disposition home or self-care (01) ==
LOC: ONC 09:27
PROVIDERS: ATTEND Internal Medicine Hematology & Oncology
DX: Z51.11 Encounter for antineoplastic chemotherapy (principal); Z45.2 Encounter for adjustment and management of vascular access device; C50.919 Malignant neoplasm of unspecified site of unspecified female breast; C79.51 Secondary malignant neoplasm of bone; I10 Essential (primary) hypertension; Z72.0 Tobacco use
CPT/HCPCS: 80053; 85025; 86300; 96402; G0463; 36415; 36591

== ENCOUNTER 2022-06-16 09:55 | Outpatient (RCR) | payer MEDICARE, MEDICAID ==
[2022-06-16 10:17] LABS: BASOPHILS # (AUTO) 0.1 10^3/uL (0.0-0.1); BASOPHILS % (AUTO) 2 % (0-10); EOSINOPHILS % (AUTO) 1 % (0-10); HEMATOCRIT 36 % (35-52); HEMOGLOBIN 12.1 g/dL (11.5-16.0); LYMPHOCYTES # (AUTO) 0.3 10^3/uL (1.0-4.0); LYMPHOCYTES % (AUTO) 8 % (12-44); MEAN CORPUSCULAR HEMOGLOBIN 38 pg (25-34); MEAN CORPUSCULAR HGB CONC 34 g/dL (32-36); MEAN CORPUSCULAR VOLUME 113 fL (80-99); MEAN PLATELET VOLUME 9.3 fL (9.0-12.2); MONOCYTES # (AUTO) 0.1 10^3/uL (0.0-1.0); MONOCYTES % (AUTO) 3 % (0-12); NEUTROPHILS # (AUTO) 3.2 10^3/uL (1.8-7.8); NEUTROPHILS % (AUTO) 86 % (42-75); PLATELET COUNT 368 10^3/uL (130-400); WHITE BLOOD COUNT 3.8 10^3/uL (4.3-11.0)
[2022-06-16 10:51] LABS: ALBUMIN 4.1 GM/DL (3.2-4.5); BILIRUBIN,TOTAL 0.7 MG/DL (0.1-1.0); CALCIUM 9.4 MG/DL (8.5-10.1); CREATININE SERUM 0.93 MG/DL (0.60-1.30); POTASSIUM 3.8 MMOL/L (3.6-5.0); TOTAL PROTEIN 6.6 GM/DL (6.4-8.2)
== END 2022-07-08 | disposition home or self-care (01) ==
LOC: ONC 09:55
PROVIDERS: ATTEND Internal Medicine Hematology & Oncology
DX: C50.919 Malignant neoplasm of unspecified site of unspecified female breast (principal); C79.51 Secondary malignant neoplasm of bone; I10 Essential (primary) hypertension; Z72.0 Tobacco use
CPT/HCPCS: 80053; 85025; 86300; G0463; 36415

== ENCOUNTER 2022-07-24 11:00 | Outpatient (RCR) | payer MEDICARE, MEDICAID ==
[~2022-07-24 11:00] MED LIST changes: +NS IV SCH; +ZOLEDRONIC ACID IV SCH
[2022-07-24 11:28] LABS: BASOPHILS % (AUTO) 2 % (0-10); EOSINOPHILS % (AUTO) 2 % (0-10); HEMATOCRIT 35 % (35-52); HEMOGLOBIN 11.7 g/dL (11.5-16.0); LYMPHOCYTES # (AUTO) 0.5 10^3/uL (1.0-4.0); LYMPHOCYTES % (AUTO) 20 % (12-44); MEAN CORPUSCULAR HEMOGLOBIN 38 pg (25-34); MEAN CORPUSCULAR HGB CONC 34 g/dL (32-36); MEAN CORPUSCULAR VOLUME 113 fL (80-99); MEAN PLATELET VOLUME 9.7 fL (9.0-12.2); MONOCYTES # (AUTO) 0.1 10^3/uL (0.0-1.0); MONOCYTES % (AUTO) 6 % (0-12); NEUTROPHILS # (AUTO) 1.7 10^3/uL (1.8-7.8); NEUTROPHILS % (AUTO) 71 % (42-75); PLATELET COUNT 197 10^3/uL (130-400); WHITE BLOOD COUNT 2.3 10^3/uL (4.3-11.0)
[2022-07-24 11:44] LABS: ALBUMIN 3.9 GM/DL (3.2-4.5); BILIRUBIN,TOTAL 0.8 MG/DL (0.1-1.0); CALCIUM 9.3 MG/DL (8.5-10.1); CREATININE SERUM 0.88 MG/DL (0.60-1.30); TOTAL PROTEIN 6.7 GM/DL (6.4-8.2)
== END 2022-08-05 | disposition home or self-care (01) ==
LOC: ONC 11:00
PROVIDERS: ATTEND Internal Medicine Hematology & Oncology
DX: Z51.11 Encounter for antineoplastic chemotherapy (principal); Z45.2 Encounter for adjustment and management of vascular access device; C50.919 Malignant neoplasm of unspecified site of unspecified female breast; C79.51 Secondary malignant neoplasm of bone; I10 Essential (primary) hypertension; Z72.0 Tobacco use
CPT/HCPCS: 36415; 36591; 80053; 85025; 86300; 96365; 96402

== ENCOUNTER → 2022-08-14 | Outpatient (CLI) | payer MEDICARE, MEDICAID ==
[~2022-08-14] MED LIST changes: -FULVESTRANT 250 MG/5 ML (FASLODEX) IM SCH; +HOLD METFORMIN - RECEIVED CONTRAST 20 ML VIAL IV SCH; +IOHEXOL 350 MG/ML 100 ML (OMNIPAQUE 350) VIAL IV ONE; +NS 100 ML (IVPB) BAG IV ONE; -NS IV SCH; -ZOLEDRONIC ACID IV SCH
--- NOTE | 2022-08-14 13:55 | Diagnostic Imaging Report ---
EXAMINATION: CT neck, chest and abdomen with intravenous contrast. TECHNIQUE: Multiple contiguous axial images were obtained through the neck, chest and abdomen after the uneventful administration of intravenous contrast. All CT scans use one or more of the following dose optimizing techniques: automated exposure control, MA and/or KvP adjustment based on patient size and exam type or iterative reconstruction. HISTORY: History of breast cancer. Lump on the left side of the neck. COMPARISON: 04/02/2022. FINDINGS: Neck CT: The posterior nasopharynx and oropharynx demonstrate appropriate symmetry. There is no displacement of the parapharyngeal fat planes. There is no abnormal process evident within the prevertebral or retropharyngeal space. There is no evidence of abnormal thickening of the epiglottis or aryepiglottic folds. The vocal folds appear symmetric. The parotid, submandibular and thyroid gland are unremarkable. In the base of the neck on the left there is a mildly prominent lymph node which appears new since the prior exam measuring 0.9 x 0.9 cm. No other prominent lymph nodes are seen in the neck. The vascular structures the neck demonstrate no evidence of high-grade stenosis on this nondedicated exam. The visualized intracranial contents demonstrate no evidence of pathologic intracranial enhancement or intracranial mass effect. Visualized orbital contents are unremarkable. The visualized paranasal sinuses are clear. The mastoids and middle ears are clear. Sclerotic lesions are seen within the posterior arch of C1, vertebral body of the C2, vertebral body of C4, spinous process and vertebral body of C5, and vertebral body of C6. No evidence of pathologic fracture. The craniocervical junction is intact. A sclerotic lesion is also seen within the mandibular condyle on the right. Chest CT: The heart size is within normal limits. No pericardial effusion is present. A right-sided port is visualized with the tip in the low SVC. There is no mediastinal, hilar, or axillary lymphadenopathy. The lungs demonstrate no pulmonary nodules or masses. There are no focal areas of consolidation. Focal hazy opacities are seen in the left lung base and medial aspect of the right upper lobe. No central endobronchial obstructing lesions are identified. There is no pleural effusion or pneumothorax. Sclerotic lesions are seen throughout the thoracic spine, ribs, and sternum. These are greatest at the T8-T10 vertebral bodies with chronic height loss at the T8 and T10 levels. Abdomen CT: Stable cystic lesion in the right hepatic lobe. No new enhancing hepatic lesions. Intra-extra hepatic biliary dilation is again noted. The gallbladder is nondistended. The portal vein is patent. The spleen, pancreas, adrenal glands, and kidneys have a normal appearance. There is no pathologically enlarged mesenteric or retroperitoneal adenopathy. The included bowel loops are nondilated. There is no free fluid or free air. Osseous metastatic disease is seen throughout the lumbar spine. No new pathologic fractures are seen in the lumbar spine. There is calcified aortic and iliac atherosclerotic plaque without aneurysm. IMPRESSION: 1. Mildly prominent lymph node in the base of the neck on the left, likely representing the patient's history of lump in the left side of the neck. Recommend correlation with physical exam and if indicated ultrasound to further characterize. 2. Stable widespread osseous metastatic disease. No new pathologic fractures. 3. Focal hazy opacities in the medial aspect of the right upper lobe and left lung base. Findings are favored to represent areas of inflammatory or infectious process. No focal consolidation or pleural effusion. No suspicious pulmonary nodules. 4. Stable intra-extra hepatic biliary dilation. This is nonspecific. Recommend correlation with LFTs and if indicated MRI of the abdomen with MRCP to further evaluate. Dictated by: Dictated on workstation # [id number]
== END ==
LOC: RAD 13:03
PROVIDERS: ATTEND Internal Medicine Hematology & Oncology
DX: J98.4 Other disorders of lung (principal); R59.9 Enlarged lymph nodes, unspecified; C50.919 Malignant neoplasm of unspecified site of unspecified female breast
CPT/HCPCS: 70491; 71260; 74160

== ENCOUNTER 2022-08-20 10:44 | Outpatient (RCR) | payer MEDICARE, MEDICAID ==
[2022-08-11 11:38] LABS: BASOPHILS % (AUTO) 1 % (0-10); EOSINOPHILS % (AUTO) 1 % (0-10); HEMATOCRIT 35 % (35-52); HEMOGLOBIN 11.8 g/dL (11.5-16.0); LYMPHOCYTES # (AUTO) 0.5 10^3/uL (1.0-4.0); LYMPHOCYTES % (AUTO) 17 % (12-44); MEAN CORPUSCULAR HEMOGLOBIN 38 pg (25-34); MEAN CORPUSCULAR HGB CONC 34 g/dL (32-36); MEAN CORPUSCULAR VOLUME 112 fL (80-99); MEAN PLATELET VOLUME 9.4 fL (9.0-12.2); MONOCYTES # (AUTO) 0.1 10^3/uL (0.0-1.0); MONOCYTES % (AUTO) 5 % (0-12); NEUTROPHILS # (AUTO) 2.2 10^3/uL (1.8-7.8); NEUTROPHILS % (AUTO) 76 % (42-75); PLATELET COUNT 347 10^3/uL (130-400)
[2022-08-11 11:57] LABS: ALBUMIN 3.8 GM/DL (3.2-4.5); BILIRUBIN,TOTAL 0.5 MG/DL (0.1-1.0); CALCIUM 9.6 MG/DL (8.5-10.1); CREATININE SERUM 0.88 MG/DL (0.60-1.30); POTASSIUM 4.1 MMOL/L (3.6-5.0); TOTAL PROTEIN 6.5 GM/DL (6.4-8.2)
[~2022-08-20 10:44] MED LIST changes: +FULVESTRANT 250 MG/5 ML (FASLODEX) IM SCH; -HOLD METFORMIN - RECEIVED CONTRAST 20 ML VIAL IV SCH; -IOHEXOL 350 MG/ML 100 ML (OMNIPAQUE 350) VIAL IV ONE; -NS 100 ML (IVPB) BAG IV ONE; +NS IV SCH; +ZOLEDRONIC ACID IV SCH
[2022-09-04] MEDS ORDERED: ZOLE4VIA5 IV (14:24)
[2022-09-04] MEDS ORDERED: FULV250S3 IM (14:24)
[2022-09-04] MEDS ORDERED: MIRT-68 PO (14:24)
[2022-09-04] MEDS ORDERED: MORP60TA28 PO (14:24)
[2022-09-04] MEDS ORDERED: MORP30TA60 PO (14:24)
[2022-09-04] MEDS ORDERED: METO-333 PO (14:24)
[2022-09-04] MEDS ORDERED: RIBO1TAB2 PO (14:24)
[2022-09-04] MEDS ORDERED: MORPHINE ER PO (14:24)
[2022-09-04] MEDS ORDERED: ONDA8TAB13 SL (14:24)
== END 2022-09-05 | disposition home or self-care (01) ==
LOC: ONC 10:44
PROVIDERS: ATTEND Internal Medicine Hematology & Oncology
DX: Z51.11 Encounter for antineoplastic chemotherapy (principal); Z45.2 Encounter for adjustment and management of vascular access device; C50.919 Malignant neoplasm of unspecified site of unspecified female breast; C79.51 Secondary malignant neoplasm of bone; I10 Essential (primary) hypertension; Z72.0 Tobacco use
CPT/HCPCS: 80053; 85025; 86300; 96402

== ENCOUNTER 2022-09-04 05:31 | Outpatient (CLI) | payer MEDICARE, MEDICAID ==
[~2022-09-04] VITALS: Ht 160 cm; Wt 58.5 kg
[~2022-09-04 05:31] MED LIST changes: -FULVESTRANT 250 MG/5 ML (FASLODEX) IM SCH; -NS IV SCH; -ZOLEDRONIC ACID IV SCH
[2022-09-04] MEDS ORDERED: MORP30TA60 PO (14:24)
[2022-09-04] MEDS ORDERED: MORPHINE ER PO (14:24)
[2022-09-04] MEDS ORDERED: ZOLE4VIA5 IV (14:24)
[2022-09-04] MEDS ORDERED: MIRT-68 PO (14:24)
[2022-09-04] MEDS ORDERED: RIBO1TAB2 PO (14:24)
[2022-09-04] MEDS ORDERED: ONDA8TAB13 SL (14:24)
[2022-09-04] MEDS ORDERED: MORP60TA28 PO (14:24)
[2022-09-04] MEDS ORDERED: METO-333 PO (14:24)
[2022-09-04] MEDS ORDERED: FULV250S3 IM (14:24)
== END 2022-09-04 15:41 | disposition home or self-care (01) ==
LOC: PREOP 05:31
PROVIDERS: ATTEND Surgery
DX: Z01.818 Encounter for other preprocedural examination (principal)

== ENCOUNTER 2022-09-11 11:15 | Day surgery (SDC) | payer MEDICARE, MEDICAID ==
[~2022-09-11] VITALS: Ht 160 cm; Wt 58.5 kg
[2022-09-11] VITALS (9 sets, daily range): BP systolic 121–175; BP diastolic 74–112
[~2022-09-11 11:15] MED LIST changes: +FULV250S3 IM; +METO-333 PO; +MIRT-68 PO; +MORP30TA60 PO; +MORP60TA28 PO; +MORPHINE ER PO; +ONDA8TAB13 SL; +RIBO1TAB2 PO; +ZOLE4VIA5 IV
[2022-09-11] MEDS ORDERED: NS (IVPB) 50 ML ONE (12:09)
[2022-09-11] MEDS ORDERED: ceFAZolin INJECTION 2,000 MG ONE (12:09)
[2022-09-11] MEDS ORDERED: LACTATED RINGERS 1,000 ML IV PRN (12:15)
[2022-09-11] MEDS ORDERED: ceFAZolin INJECTION 2,000 MG in NS (IVPB) 50 ML IV ONE (12:15)
[2022-09-11] MEDS ORDERED: BUP/EPI 0.5% 1:200,000 (SENSORCAINE) 30 ML VIAL ONE (12:29)
[2022-09-11] MEDS ORDERED: ONDANSETRON 4 MG/2 ML (SDV) Z0FRAN ONE (12:34)
[2022-09-11] MEDS ORDERED: fentaNYL INJ 100 MCG/2 ML AMP ONE (12:34)
[2022-09-11] MEDS ORDERED: proPOfol 200 MG/20 ML (DIPRIVAN) VIAL IV ONE (12:34)
[2022-09-11] MEDS ORDERED: LIDOCAINE PF 2% 5 ML (XYLOCAINE) VIAL ONE (12:34)
--- NOTE | 2022-09-11 12:41 | Progress Note-Pre Operative ---
Pre-Operative Progress Note Date H&P Reviewed: Sep 11, 2022 Time H&P Reviewed: 12:40 History & Physical: H&P Reviewed, Patient Examed, No changes noted Pre-Operative Diagnosis: LEFT NECK MASS, RIGHT SHOULDER MASS STEPHANY TELLEZ DO Sep 11, 2022 12:41
[2022-09-11] MEDS ORDERED: SEVOFLURANE (ULTANE) 15 ML INHAL SOLN ONE (13:28)
--- NOTE | 2022-09-11 13:30 | Discharge Inst-Simple/Standard ---
Discharge Inst-Standard Patient Instructions/Follow Up Plan of Care/Instructions/FU: 2 weeks Светлана Activity as Tolerated: No Discharge Diet: Regular Diet Other Inst to Patient Follow up Appt: Make appointment for 2 week. Instructions: No lifting greater than 10 pounds. No strenuous activity. May shower in 24 hours, no tub bath or soaking. Use incentive spirometer at home as directed. No Smoking Skin/Wound Care: You have special glue over your incision that will fall off on it's own. Symptoms to Report: Appetite Changes, Extremity Discoloration, Numbness/Tingling, Swelling Increased, Bleeding Excessive, Eyesight Changes, Pain Increased, Urine Color Change, Constipation(Persistent), Fever over 101 degree F, Pain/Pressure in chest, Urinating Difficulty, Cough Up/Vomit Blood, Heart Beat Irreg/Pounding, Pain/Pressure in jaw, Vaginal Bleeding Increase, Cramps in feet or legs, Lightheadedness, Pain/Pressure in shoulder, Diarrhea(Persistent), Memory Changes Suddenly, Questions/Concerns, Weight gain consecutive days, Dizziness/Fainting, Nausea/Vomiting, Shortness of Breath, Weight gain over 2 pounds If questions or concerns contact your physician Or seek help at emergency department. STEPHANY TELLEZ DO Sep 11, 2022 13:30
--- NOTE | 2022-09-11 13:31 | Progress Note-Post Operative ---
Post-Operative Progess Note Surgeon (s)/Machine Package Sealer (s) Surgeon STEPHANY TELLEZ DO Machine Package Sealer: na Pre-Operative Diagnosis LEFT NECK MASS, RIGHT SHOULDER MASS Post-Operative Diagnosis same Procedure & Operative Findings Date of Procedure 09/11/22 Procedure Performed/Findings excision right shoulder mass 2x1.5cm, excision left neck mass 1x1 cm Anesthesia Type general Estimated Blood Loss Estimated blood loss (mL): minimal Specimens/Packing Specimens Removed right shoulder and left neck mass STEPHANY TELLEZ DO Sep 11, 2022 13:31
[2022-09-11] MEDS ORDERED: MEPERIDINE (DEMEROL) INJ 50 MG/ML ONE (13:49)
[2022-09-11] MEDS ORDERED: ONDANSETRON 4 MG/2 ML (SDV) Z0FRAN IVP PRN (14:00)
[2022-09-11] MEDS ORDERED: morphine INJ 10 MG/ML 1ML (SYR OR VIAL) IVP ONE (14:00)
[2022-09-11] MEDS ORDERED: MEPERIDINE (DEMEROL) INJ 50 MG/ML IVP ONE (14:00)
--- NOTE | 2022-09-11 15:02 | Anesthesia-General Post-Op ---
General Patient Condition Mental Status/LOC: Same as Preop Cardiovascular: Satisfactory Nausea/Vomiting: Absent Respiratory: Satisfactory Pain: Controlled Complications: Absent Post Op Complications Complications None Follow Up Care/Instructions Patient Instructions None needed. Anesthesia/Patient Condition Patient Condition Patient was seen in PACU, awake and doing well, no complaints, stable vital signs, no apparent adverse anesthesia problems. No complications reported per nursing. JES MELENDEZ DO Sep 11, 2022 15:02
--- NOTE | 2022-09-12 15:28 | OPERATIVE REPORT ---
DATE OF SERVICE: 09/11/2022 PREOPERATIVE DIAGNOSIS: Left neck mass, right shoulder mass. POSTOPERATIVE DIAGNOSIS: Left neck mass, right shoulder mass. PROCEDURE: Excision of right shoulder mass, 2 x 1.5 cm; excision of left neck mass, 1 x 1 cm. SURGEON: Stephany Sotomayor DO ANESTHESIA: General. ESTIMATED BLOOD LOSS: Minimal. COMPLICATIONS: None. INDICATIONS: The patient is a 67-year-old female with history of breast cancer, metastatic. She had a mass on the left neck area and also mass on the right shoulder. The basilar right shoulder presumed to be a lipoma. We discussed risks and benefits of procedures and wished to proceed. Consent was signed in chart. DESCRIPTION OF PROCEDURE: The patient was taken to the operating suite. She was prepped and draped in sterile fashion. Timeout was performed. Local anesthetic was infiltrated around the right shoulder over the palpable mass. A #15 blade scalpel was used to make a small skin incision. The lipoma was able to be dissected around through the subcutaneous tissue and then removed in its entirety, which was 2 x 1.5 cm. The wound was irrigated. Hemostasis was achieved. Skin was then closed using 3-0 Vicryl in a subcuticular fashion. A skin Affix was placed over the incision. The patient then had local anesthetic infiltrated over the palpable mass in the left neck. A #15 blade scalpel was used to make a skin incision over. Weitlaner was placed to keep the area exposed through subcutaneous tissue and some muscle in order to get to the palpable mass. A small vein was over the palpable mass, which had to be divided. Hemostat was used to dissect around it both proximally and distally and clamp on both sides, cut and tied off with 3-0 silk sutures. The mass was able to be grasped, elevated and carefully dissected around with cautery and blunt dissection. Once removed, it was sent off for specimen. The wound was then irrigated. Hemostasis was achieved. The wound was then closed using 4-0 Monocryl in running subcuticular fashion. Then, the area was washed and dried and skin Affix was placed over the incision. The patient tolerated the procedure well, no complications, taken to recovery room in stable condition. Job ID: [id number] DocumentID: [id number] Dictated Date: 09/12/2022 09:25:31 Agriculture Professor Date: 09/12/2022 15:21:00 Dictated By: STEPHANY SOTOMAYOR DO
== END 2022-09-11 15:08 | disposition home or self-care (01) ==
LOC: SDC 11:15
PROVIDERS: ATTEND Surgery
DX: D17.21 Benign lipomatous neoplasm of skin and subcutaneous tissue of right arm (principal); C76.0 Malignant neoplasm of head, face and neck; C79.9 Secondary malignant neoplasm of unspecified site; R59.0 Localized enlarged lymph nodes; Z85.3 Personal history of malignant neoplasm of breast; Z87.891 Personal history of nicotine dependence; Z28.310 Unvaccinated for COVID-19
CPT/HCPCS: 87081; 94664

== ENCOUNTER 2022-09-26 10:43 | Outpatient (RCR) | payer MEDICARE, MEDICAID ==
[2022-09-08 11:18] LABS: BASOPHILS # (AUTO) 0.1 10^3/uL (0.0-0.1); BASOPHILS % (AUTO) 2 % (0-10); EOSINOPHILS # (AUTO) 0.1 10^3/uL (0.0-0.3); EOSINOPHILS % (AUTO) 2 % (0-10); HEMATOCRIT 34 % (35-52); HEMOGLOBIN 11.7 g/dL (11.5-16.0); LYMPHOCYTES # (AUTO) 0.3 10^3/uL (1.0-4.0); LYMPHOCYTES % (AUTO) 9 % (12-44); MEAN CORPUSCULAR HEMOGLOBIN 38 pg (25-34); MEAN CORPUSCULAR HGB CONC 34 g/dL (32-36); MEAN CORPUSCULAR VOLUME 112 fL (80-99); MEAN PLATELET VOLUME 9.5 fL (9.0-12.2); MONOCYTES # (AUTO) 0.2 10^3/uL (0.0-1.0); MONOCYTES % (AUTO) 6 % (0-12); NEUTROPHILS # (AUTO) 2.7 10^3/uL (1.8-7.8); NEUTROPHILS % (AUTO) 81 % (42-75); PLATELET COUNT 318 10^3/uL (130-400); WHITE BLOOD COUNT 3.4 10^3/uL (4.3-11.0)
[2022-09-08 11:40] LABS: ALBUMIN 3.9 GM/DL (3.2-4.5); BILIRUBIN,TOTAL 0.6 MG/DL (0.1-1.0); CALCIUM 9.3 MG/DL (8.5-10.1); CREATININE SERUM 0.87 MG/DL (0.60-1.30); POTASSIUM 4.2 MMOL/L (3.6-5.0); TOTAL PROTEIN 6.6 GM/DL (6.4-8.2)
[~2022-09-26 10:43] MED LIST changes: +ENAL-70 PO; -ENAL20TA16 PO; +FULVESTRANT 250 MG/5 ML (FASLODEX) IM SCH
== END 2022-10-05 | disposition home or self-care (01) ==
LOC: ONC 10:43
PROVIDERS: ATTEND Internal Medicine Hematology & Oncology
DX: C50.919 Malignant neoplasm of unspecified site of unspecified female breast (principal); C79.51 Secondary malignant neoplasm of bone; I10 Essential (primary) hypertension; Z72.0 Tobacco use
CPT/HCPCS: 80053; 82378; 85025; 86300; 96372; 96402

== ENCOUNTER 2022-10-20 11:17 | Outpatient (RCR) | payer MEDICARE, MEDICAID ==
[2022-10-06 11:03] LABS: BASOPHILS # (AUTO) 0.1 10^3/uL (0.0-0.1); BASOPHILS % (AUTO) 2 % (0-10); EOSINOPHILS # (AUTO) 0.1 10^3/uL (0.0-0.3); EOSINOPHILS % (AUTO) 4 % (0-10); HEMATOCRIT 33 % (35-52); LYMPHOCYTES # (AUTO) 0.4 10^3/uL (1.0-4.0); LYMPHOCYTES % (AUTO) 12 % (12-44); MEAN CORPUSCULAR HEMOGLOBIN 38 pg (25-34); MEAN CORPUSCULAR HGB CONC 33 g/dL (32-36); MEAN CORPUSCULAR VOLUME 113 fL (80-99); MEAN PLATELET VOLUME 9.2 fL (9.0-12.2); MONOCYTES # (AUTO) 0.2 10^3/uL (0.0-1.0); MONOCYTES % (AUTO) 6 % (0-12); NEUTROPHILS # (AUTO) 2.5 10^3/uL (1.8-7.8); NEUTROPHILS % (AUTO) 76 % (42-75); PLATELET COUNT 367 10^3/uL (130-400); WHITE BLOOD COUNT 3.3 10^3/uL (4.3-11.0)
[2022-10-06 11:20] LABS: ALBUMIN 3.8 GM/DL (3.2-4.5); BILIRUBIN,TOTAL 0.4 MG/DL (0.1-1.0); CALCIUM 8.8 MG/DL (8.5-10.1); CREATININE SERUM 0.89 MG/DL (0.60-1.30); TOTAL PROTEIN 6.3 GM/DL (6.4-8.2)
[2022-10-15 14:08] LABS: BASOPHILS # (AUTO) 0.1 10^3/uL (0.0-0.1); BASOPHILS % (AUTO) 1 % (0-10); EOSINOPHILS # (AUTO) 0.1 10^3/uL (0.0-0.3); EOSINOPHILS % (AUTO) 1 % (0-10); HEMATOCRIT 39 % (35-52); HEMOGLOBIN 13.1 g/dL (11.5-16.0); LYMPHOCYTES # (AUTO) 1.2 10^3/uL (1.0-4.0); LYMPHOCYTES % (AUTO) 27 % (12-44); MEAN CORPUSCULAR HEMOGLOBIN 37 pg (25-34); MEAN CORPUSCULAR HGB CONC 34 g/dL (32-36); MEAN CORPUSCULAR VOLUME 110 fL (80-99); MONOCYTES # (AUTO) 0.4 10^3/uL (0.0-1.0); MONOCYTES % (AUTO) 9 % (0-12); NEUTROPHILS # (AUTO) 2.7 10^3/uL (1.8-7.8); NEUTROPHILS % (AUTO) 61 % (42-75); PLATELET COUNT 272 10^3/uL (130-400); WHITE BLOOD COUNT 4.4 10^3/uL (4.3-11.0)
[2022-10-15 14:43] LABS: ALBUMIN 4.4 GM/DL (3.2-4.5); BILIRUBIN,TOTAL 0.4 MG/DL (0.1-1.0); CALCIUM 9.2 MG/DL (8.5-10.1); CREATININE SERUM 1.12 MG/DL (0.60-1.30); POTASSIUM 3.8 MMOL/L (3.6-5.0)
[~2022-10-20] VITALS: Ht 160 cm; Wt 58.7 kg
[~2022-10-20 11:17] MED LIST changes: +NS IV SCH; +ZOLEDRONIC ACID IV SCH
[2022-10-20 11:34] LABS: BASOPHILS # (AUTO) 0.1 10^3/uL (0.0-0.1); BASOPHILS % (AUTO) 2 % (0-10); EOSINOPHILS # (AUTO) 0.2 10^3/uL (0.0-0.3); EOSINOPHILS % (AUTO) 3 % (0-10); HEMATOCRIT 41 % (35-52); HEMOGLOBIN 13.8 g/dL (11.5-16.0); LYMPHOCYTES # (AUTO) 1.5 10^3/uL (1.0-4.0); LYMPHOCYTES % (AUTO) 23 % (12-44); MEAN CORPUSCULAR HEMOGLOBIN 37 pg (25-34); MEAN CORPUSCULAR HGB CONC 34 g/dL (32-36); MEAN CORPUSCULAR VOLUME 110 fL (80-99); MEAN PLATELET VOLUME 9.4 fL (9.0-12.2); MONOCYTES # (AUTO) 0.5 10^3/uL (0.0-1.0); MONOCYTES % (AUTO) 9 % (0-12); NEUTROPHILS # (AUTO) 3.9 10^3/uL (1.8-7.8); NEUTROPHILS % (AUTO) 63 % (42-75); PLATELET COUNT 260 10^3/uL (130-400); WHITE BLOOD COUNT 6.2 10^3/uL (4.3-11.0)
[2022-10-20 11:54] LABS: ALBUMIN 4.3 GM/DL (3.2-4.5); BILIRUBIN,TOTAL 0.4 MG/DL (0.1-1.0); CALCIUM 9.7 MG/DL (8.5-10.1); CREATININE SERUM 1.16 MG/DL (0.60-1.30); POTASSIUM 3.8 MMOL/L (3.6-5.0); TOTAL PROTEIN 7.1 GM/DL (6.4-8.2)
[2022-10-20] MEDS ORDERED: ZOLEDRONIC ACID IV SCH (12:30)
[2022-10-20] MEDS ORDERED: NS IV SCH (12:30)
== END 2022-11-05 | disposition home or self-care (01) ==
LOC: ONC 11:17
PROVIDERS: ATTEND Internal Medicine Hematology & Oncology
DX: C50.919 Malignant neoplasm of unspecified site of unspecified female breast (principal); C79.51 Secondary malignant neoplasm of bone; I10 Essential (primary) hypertension; Z72.0 Tobacco use
CPT/HCPCS: 36415; 36591; 80053; 85025; 86300; 96365; 96402

== ENCOUNTER 2022-11-10 09:26 | Outpatient (RCR) | payer MEDICARE, MEDICAID ==
[~2022-11-10 09:26] MED LIST changes: -NS IV SCH; -ZOLEDRONIC ACID IV SCH
[2022-11-10 09:58] LABS: BASOPHILS # (AUTO) 0.1 10^3/uL (0.0-0.1); BASOPHILS % (AUTO) 1 % (0-10); EOSINOPHILS # (AUTO) 0.5 10^3/uL (0.0-0.3); EOSINOPHILS % (AUTO) 7 % (0-10); HEMATOCRIT 37 % (35-52); HEMOGLOBIN 12.4 g/dL (11.5-16.0); LYMPHOCYTES # (AUTO) 0.8 10^3/uL (1.0-4.0); LYMPHOCYTES % (AUTO) 13 % (12-44); MEAN CORPUSCULAR HEMOGLOBIN 35 pg (25-34); MEAN CORPUSCULAR HGB CONC 33 g/dL (32-36); MEAN CORPUSCULAR VOLUME 106 fL (80-99); MEAN PLATELET VOLUME 9.3 fL (9.0-12.2); MONOCYTES # (AUTO) 0.7 10^3/uL (0.0-1.0); MONOCYTES % (AUTO) 10 % (0-12); NEUTROPHILS # (AUTO) 4.4 10^3/uL (1.8-7.8); NEUTROPHILS % (AUTO) 69 % (42-75); PLATELET COUNT 384 10^3/uL (130-400); WHITE BLOOD COUNT 6.4 10^3/uL (4.3-11.0)
[2022-11-10 10:16] LABS: ALBUMIN 3.9 GM/DL (3.2-4.5); BILIRUBIN,TOTAL 0.5 MG/DL (0.1-1.0); CALCIUM 9.4 MG/DL (8.5-10.1); CREATININE SERUM 0.89 MG/DL (0.60-1.30); POTASSIUM 4.4 MMOL/L (3.6-5.0); TOTAL PROTEIN 6.4 GM/DL (6.4-8.2)
== END 2022-12-05 | disposition home or self-care (01) ==
LOC: ONC 09:26
PROVIDERS: ATTEND Internal Medicine Hematology & Oncology
DX: Z51.11 Encounter for antineoplastic chemotherapy (principal); Z45.2 Encounter for adjustment and management of vascular access device; C50.919 Malignant neoplasm of unspecified site of unspecified female breast; C79.51 Secondary malignant neoplasm of bone; C77.9 Secondary and unspecified malignant neoplasm of lymph node, unspecified; I10 Essential (primary) hypertension; Z72.0 Tobacco use
CPT/HCPCS: 36415; 36591; 80053; 85025; 86300; 96402

== ENCOUNTER → 2023-01-05 | Outpatient (RCR) | payer MEDICARE, MEDICAID ==
[2022-12-10 10:24] LABS: BASOPHILS # (AUTO) 0.1 10^3/uL (0.0-0.1); BASOPHILS % (AUTO) 1 % (0-10); EOSINOPHILS # (AUTO) 0.5 10^3/uL (0.0-0.3); EOSINOPHILS % (AUTO) 11 % (0-10); HEMATOCRIT 40 % (35-52); HEMOGLOBIN 13.1 g/dL (11.5-16.0); LYMPHOCYTES # (AUTO) 1.1 10^3/uL (1.0-4.0); LYMPHOCYTES % (AUTO) 26 % (12-44); MEAN CORPUSCULAR HEMOGLOBIN 35 pg (25-34); MEAN CORPUSCULAR HGB CONC 33 g/dL (32-36); MEAN CORPUSCULAR VOLUME 105 fL (80-99); MEAN PLATELET VOLUME 9.2 fL (9.0-12.2); MONOCYTES # (AUTO) 0.3 10^3/uL (0.0-1.0); MONOCYTES % (AUTO) 7 % (0-12); NEUTROPHILS # (AUTO) 2.4 10^3/uL (1.8-7.8); NEUTROPHILS % (AUTO) 56 % (42-75); PLATELET COUNT 254 10^3/uL (130-400); WHITE BLOOD COUNT 4.4 10^3/uL (4.3-11.0)
[2022-12-10 10:36] LABS: ALBUMIN 3.9 GM/DL (3.2-4.5); POTASSIUM 3.9 MMOL/L (3.6-5.0)
[2022-12-10 10:38] LABS: TOTAL PROTEIN 6.4 GM/DL (6.4-8.2)
[2022-12-10 10:40] LABS: BILIRUBIN,TOTAL 0.4 MG/DL (0.1-1.0)
[2022-12-10 10:42] LABS: CREATININE SERUM 0.86 MG/DL (0.60-1.30)
[2023-01-05 10:58] LABS: BASOPHILS # (AUTO) 0.1 10^3/uL (0.0-0.1); BASOPHILS % (AUTO) 1 % (0-10); EOSINOPHILS # (AUTO) 0.3 10^3/uL (0.0-0.3); EOSINOPHILS % (AUTO) 5 % (0-10); HEMATOCRIT 42 % (35-52); HEMOGLOBIN 14.3 g/dL (11.5-16.0); LYMPHOCYTES # (AUTO) 1.1 10^3/uL (1.0-4.0); LYMPHOCYTES % (AUTO) 17 % (12-44); MEAN CORPUSCULAR HEMOGLOBIN 34 pg (25-34); MEAN CORPUSCULAR HGB CONC 34 g/dL (32-36); MEAN CORPUSCULAR VOLUME 100 fL (80-99); MEAN PLATELET VOLUME 9.1 fL (9.0-12.2); MONOCYTES # (AUTO) 0.3 10^3/uL (0.0-1.0); MONOCYTES % (AUTO) 4 % (0-12); NEUTROPHILS # (AUTO) 4.8 10^3/uL (1.8-7.8); NEUTROPHILS % (AUTO) 73 % (42-75); PLATELET COUNT 342 10^3/uL (130-400); WHITE BLOOD COUNT 6.6 10^3/uL (4.3-11.0)
[2023-01-05 11:13] LABS: ALBUMIN 4.2 GM/DL (3.2-4.5); BILIRUBIN,TOTAL 0.5 MG/DL (0.1-1.0); CALCIUM 9.3 MG/DL (8.5-10.1); CREATININE SERUM 0.97 MG/DL (0.60-1.30); POTASSIUM 4.1 MMOL/L (3.6-5.0); TOTAL PROTEIN 6.7 GM/DL (6.4-8.2)
== END | disposition home or self-care (01) ==
LOC: ONC 12-10 09:59
PROVIDERS: ATTEND Internal Medicine Hematology & Oncology
DX: Z51.11 Encounter for antineoplastic chemotherapy (principal); Z45.2 Encounter for adjustment and management of vascular access device; C50.919 Malignant neoplasm of unspecified site of unspecified female breast; C79.51 Secondary malignant neoplasm of bone; C77.9 Secondary and unspecified malignant neoplasm of lymph node, unspecified; I10 Essential (primary) hypertension; D72.819 Decreased white blood cell count, unspecified; Z72.0 Tobacco use; Z92.3 Personal history of irradiation
CPT/HCPCS: 36415; 36591; 80053; 85025; 86300; 96402

== ENCOUNTER 2023-02-02 09:55 | Outpatient (RCR) | payer MEDICARE, MEDICAID ==
[~2023-02-02 09:55] MED LIST changes: -FULV250S3 IM; +NS IV 500 ML 500 ML IV SCH; +NS IV SCH; +ZOLEDRONIC ACID IV SCH; +[UNRECOGNIZED DRUG - CODE] IM
[2023-02-02 10:21] LABS: BASOPHILS # (AUTO) 0.1 10^3/uL (0.0-0.1); BASOPHILS % (AUTO) 1 % (0-10); EOSINOPHILS # (AUTO) 0.6 10^3/uL (0.0-0.3); EOSINOPHILS % (AUTO) 10 % (0-10); HEMATOCRIT 41 % (35-52); HEMOGLOBIN 13.5 g/dL (11.5-16.0); LYMPHOCYTES % (AUTO) 16 % (12-44); MEAN CORPUSCULAR HEMOGLOBIN 34 pg (25-34); MEAN CORPUSCULAR HGB CONC 33 g/dL (32-36); MEAN CORPUSCULAR VOLUME 104 fL (80-99); MEAN PLATELET VOLUME 9.2 fL (9.0-12.2); MONOCYTES # (AUTO) 0.4 10^3/uL (0.0-1.0); MONOCYTES % (AUTO) 6 % (0-12); NEUTROPHILS % (AUTO) 66 % (42-75); PLATELET COUNT 364 10^3/uL (130-400)
[2023-02-02 10:35] LABS: ALBUMIN 3.8 GM/DL (3.2-4.5); BILIRUBIN,TOTAL 0.6 MG/DL (0.1-1.0); CALCIUM 8.8 MG/DL (8.5-10.1); CREATININE SERUM 0.97 MG/DL (0.60-1.30); TOTAL PROTEIN 5.9 GM/DL (6.4-8.2)
[2023-02-02 11:33] VITALS: BP 153/82
== END 2023-02-05 | disposition home or self-care (01) ==
LOC: ONC 09:55
PROVIDERS: ATTEND Internal Medicine Hematology & Oncology
DX: C50.919 Malignant neoplasm of unspecified site of unspecified female breast (principal); C79.51 Secondary malignant neoplasm of bone; C77.0 Secondary and unspecified malignant neoplasm of lymph nodes of head, face and neck; I10 Essential (primary) hypertension; D72.819 Decreased white blood cell count, unspecified; Z72.0 Tobacco use; Z92.3 Personal history of irradiation; B02.9 Zoster without complications; Z79.899 Other long term (current) drug therapy
CPT/HCPCS: G0463 ×2; 80053; 85025; 86300; 96365; 96402; 36415; 36591; 99214

== ENCOUNTER → 2023-02-23 | Outpatient (CLI) | payer MEDICARE, MEDICAID ==
[~2023-02-23] MED LIST changes: -FULVESTRANT 250 MG/5 ML (FASLODEX) IM SCH; +HOLD METFORMIN - RECEIVED CONTRAST 20 ML VIAL IV SCH; +IOHEXOL 350 MG/ML 100 ML (OMNIPAQUE 350) VIAL IV ONE; +NS 100 ML (IVPB) BAG IV ONE; -NS IV 500 ML 500 ML IV SCH; -NS IV SCH; -ZOLEDRONIC ACID IV SCH
--- NOTE | 2023-02-23 13:38 | Diagnostic Imaging Report ---
PROCEDURE: CT chest, abdomen, and pelvis with contrast. TECHNIQUE: Multiple contiguous axial images were obtained through the chest, abdomen, and pelvis after the administration of intravenous contrast. Auto Exposure Controls were utilized during the CT exam to meet ALARA standards for radiation dose reduction. INDICATION: Metastatic breast cancer, on chemotherapy; previous partial colectomy. COMPARISON: Exam is compared with CT chest and abdomen 08/14/2022. FINDINGS: CHEST: There appears to be a high-grade stenosis in the medial third of the right subclavian with some well-developed venous collaterals about the right axilla and shoulder. The cava and innominate veins are patent. There is a central venous catheter via chest wall port. Its tip is at the low SVC, in good position. The aorta is patent, nonaneurysmal, and nonacute. No central PE identified. No soft tissue density lung mass or suspicious pulmonary nodule. There are no pathologically enlarged thoracic lymph nodes. A few minimal foci of scattered subpleural ground-glass density in the lungs, greater right, have decreased. No adverse development, and no consolidating pneumonia. No findings of pulmonary edema. No pleural or pericardial effusion. ABDOMEN AND PELVIS: Gallbladder is contracted. No visible stone. There are cysts in the liver with no solid liver mass with intra- and extra-hepatic bile duct dilatation, slightly improved from prior. The pancreas is unremarkable. No radiodense biliary calculus. The adrenals are negative. Spleen is negative. The kidneys are unobstructed. There is no bowel obstruction. There is a small-volume pelvic free fluid. There is some generalized integumentary edema. The colon is edematous and inflamed, greatest along the ascending colon level consistent with nonspecific colitis. No pneumatosis. No free gas. The small bowel is unobstructed. There is a left periumbilical hernia, nonobstructive. No inflammation within the hernia sac. No abdominopelvic mesenteric or retroperitoneal lymphadenopathy. There are widespread osteosclerotic bony metastatic changes throughout the axial and appendicular skeleton, which have not appreciably changed from comparison studies. IMPRESSION: 1. Widespread bony metastatic disease showed no obvious change. 2. Decreased nonspecific scattered minimal ground-glass pulmonary opacities. Lungs are otherwise clear with no lung mass or thoracic adenopathy. 3. There are features of nonspecific colitis diffusely but most notably at the ascending colon level. No abscess, obstruction, or perforation. 4. Benign liver cysts. No findings of thoracic, abdominal, or pelvic soft tissue metastatic disease with decreased biliary dilatation noted. 5. Trace free fluid. No loculated collection. Left periumbilical abdominal wall hernia, nonobstructive. Dictated by: Dictated on workstation # [id number]
== END ==
LOC: RAD 10:15
PROVIDERS: ATTEND Internal Medicine Hematology & Oncology
DX: C50.919 Malignant neoplasm of unspecified site of unspecified female breast (principal); C79.51 Secondary malignant neoplasm of bone; K76.89 Other specified diseases of liver
CPT/HCPCS: 71260; 74177

== ENCOUNTER 2023-04-06 10:12 | Outpatient (RCR) | payer MEDICARE, MEDICAID ==
[2023-03-09 10:51] LABS: BASOPHILS # (AUTO) 0.1 10^3/uL (0.0-0.1); BASOPHILS % (AUTO) 1 % (0-10); EOSINOPHILS # (AUTO) 0.5 10^3/uL (0.0-0.3); EOSINOPHILS % (AUTO) 9 % (0-10); HEMATOCRIT 40 % (35-52); HEMOGLOBIN 13.2 g/dL (11.5-16.0); LYMPHOCYTES % (AUTO) 18 % (12-44); MEAN CORPUSCULAR HEMOGLOBIN 34 pg (25-34); MEAN CORPUSCULAR HGB CONC 33 g/dL (32-36); MEAN CORPUSCULAR VOLUME 101 fL (80-99); MEAN PLATELET VOLUME 9.1 fL (9.0-12.2); MONOCYTES # (AUTO) 0.3 10^3/uL (0.0-1.0); MONOCYTES % (AUTO) 5 % (0-12); NEUTROPHILS # (AUTO) 3.4 10^3/uL (1.8-7.8); NEUTROPHILS % (AUTO) 66 % (42-75); PLATELET COUNT 322 10^3/uL (130-400); WHITE BLOOD COUNT 5.2 10^3/uL (4.3-11.0)
[2023-03-09 11:03] LABS: ALBUMIN 3.9 GM/DL (3.2-4.5); POTASSIUM 4.2 MMOL/L (3.6-5.0)
[2023-03-09 11:04] LABS: CALCIUM 9.2 MG/DL (8.5-10.1)
[2023-03-09 11:06] LABS: TOTAL PROTEIN 6.5 GM/DL (6.4-8.2)
[2023-03-09 11:07] LABS: BILIRUBIN,TOTAL 0.7 MG/DL (0.1-1.0)
[2023-03-09 11:09] LABS: CREATININE SERUM 0.92 MG/DL (0.60-1.30)
[~2023-04-06 10:12] MED LIST changes: +FULVESTRANT 250 MG/5 ML (FASLODEX) IM SCH; -HOLD METFORMIN - RECEIVED CONTRAST 20 ML VIAL IV SCH; -IOHEXOL 350 MG/ML 100 ML (OMNIPAQUE 350) VIAL IV ONE; -NS 100 ML (IVPB) BAG IV ONE
[2023-04-06 10:45] LABS: BASOPHILS # (AUTO) 0.1 10^3/uL (0.0-0.1); BASOPHILS % (AUTO) 1 % (0-10); EOSINOPHILS # (AUTO) 0.3 10^3/uL (0.0-0.3); EOSINOPHILS % (AUTO) 4 % (0-10); HEMATOCRIT 43 % (35-52); LYMPHOCYTES # (AUTO) 0.9 10^3/uL (1.0-4.0); LYMPHOCYTES % (AUTO) 12 % (12-44); MEAN CORPUSCULAR HEMOGLOBIN 34 pg (25-34); MEAN CORPUSCULAR HGB CONC 33 g/dL (32-36); MEAN CORPUSCULAR VOLUME 103 fL (80-99); MEAN PLATELET VOLUME 9.3 fL (9.0-12.2); MONOCYTES # (AUTO) 0.4 10^3/uL (0.0-1.0); MONOCYTES % (AUTO) 5 % (0-12); NEUTROPHILS % (AUTO) 79 % (42-75); PLATELET COUNT 279 10^3/uL (130-400); WHITE BLOOD COUNT 7.6 10^3/uL (4.3-11.0)
[2023-04-06 11:04] LABS: ALBUMIN 4.2 GM/DL (3.2-4.5); BILIRUBIN,TOTAL 0.7 MG/DL (0.1-1.0); CALCIUM 9.3 MG/DL (8.5-10.1); CREATININE SERUM 0.96 MG/DL (0.60-1.30); POTASSIUM 4.1 MMOL/L (3.6-5.0); TOTAL PROTEIN 6.8 GM/DL (6.4-8.2)
== END 2023-04-07 | disposition home or self-care (01) ==
LOC: ONC 10:12
PROVIDERS: ATTEND Internal Medicine Hematology & Oncology
DX: Z51.11 Encounter for antineoplastic chemotherapy (principal); Z45.2 Encounter for adjustment and management of vascular access device; C50.919 Malignant neoplasm of unspecified site of unspecified female breast; C79.51 Secondary malignant neoplasm of bone; C77.0 Secondary and unspecified malignant neoplasm of lymph nodes of head, face and neck; I10 Essential (primary) hypertension; D72.819 Decreased white blood cell count, unspecified; Z72.0 Tobacco use; Z92.3 Personal history of irradiation; Z79.899 Other long term (current) drug therapy
CPT/HCPCS: 80053; 85025; 86300; 96402; G0463; 36415; 36591; 99214

== ENCOUNTER 2023-05-04 10:14 | Outpatient (RCR) | payer MEDICARE, MEDICAID ==
[2023-04-29 15:14] LABS: BASOPHILS # (AUTO) 0.1 10^3/uL (0.0-0.1); BASOPHILS % (AUTO) 1 % (0-10); EOSINOPHILS # (AUTO) 0.3 10^3/uL (0.0-0.3); EOSINOPHILS % (AUTO) 3 % (0-10); HEMATOCRIT 42 % (35-52); LYMPHOCYTES # (AUTO) 1.2 10^3/uL (1.0-4.0); LYMPHOCYTES % (AUTO) 15 % (12-44); MEAN CORPUSCULAR HEMOGLOBIN 34 pg (25-34); MEAN CORPUSCULAR HGB CONC 34 g/dL (32-36); MEAN CORPUSCULAR VOLUME 101 fL (80-99); MEAN PLATELET VOLUME 8.9 fL (9.0-12.2); MONOCYTES # (AUTO) 0.5 10^3/uL (0.0-1.0); MONOCYTES % (AUTO) 6 % (0-12); NEUTROPHILS # (AUTO) 6.1 10^3/uL (1.8-7.8); NEUTROPHILS % (AUTO) 75 % (42-75); PLATELET COUNT 413 10^3/uL (130-400); WHITE BLOOD COUNT 8.2 10^3/uL (4.3-11.0)
[2023-04-29 15:27] LABS: ALBUMIN 4.3 GM/DL (3.2-4.5); BILIRUBIN,TOTAL 0.4 MG/DL (0.1-1.0); CALCIUM 9.7 MG/DL (8.5-10.1); CREATININE SERUM 1.06 MG/DL (0.60-1.30); POTASSIUM 3.9 MMOL/L (3.6-5.0); TOTAL PROTEIN 7.1 GM/DL (6.4-8.2)
[~2023-05-04 10:14] MED LIST changes: +NS IV SCH; +ZOLEDRONIC ACID IV SCH
[2023-05-04] MEDS ORDERED: NS (IVPB) 250 ML 250 ML ONE (11:38)
[2023-05-04 11:49] VITALS: BP 176/89
== END 2023-05-07 | disposition home or self-care (01) ==
LOC: ONC 10:14
PROVIDERS: ATTEND Internal Medicine Hematology & Oncology
DX: C50.919 Malignant neoplasm of unspecified site of unspecified female breast (principal); C79.51 Secondary malignant neoplasm of bone; C77.0 Secondary and unspecified malignant neoplasm of lymph nodes of head, face and neck; I10 Essential (primary) hypertension; D72.819 Decreased white blood cell count, unspecified; Z72.0 Tobacco use; Z92.3 Personal history of irradiation; Z79.899 Other long term (current) drug therapy
CPT/HCPCS: 36415; 80053; 85025; 86300; 96365; 96402; 96523; 99214

== ENCOUNTER → 2023-05-11 | Outpatient (CLI) | payer MEDICARE, MEDICAID ==
[~2023-05-11] MED LIST changes: -FULVESTRANT 250 MG/5 ML (FASLODEX) IM SCH; +HOLD METFORMIN - RECEIVED CONTRAST 20 ML VIAL IV SCH; +IOHEXOL 350 MG/ML 100 ML (OMNIPAQUE 350) VIAL IV ONE; +NS 100 ML (IVPB) BAG IV ONE; -NS IV SCH; -ZOLEDRONIC ACID IV SCH
--- NOTE | 2023-05-11 14:24 | Diagnostic Imaging Report ---
CT NECK/CHEST/ABDOMEN/PELVIS W INDICATION: Breast cancer with metastases to bone. COMPARISON: CT chest and abdomen of 02/23/2023. TECHNIQUE: CT imaging of the neck, chest, abdomen, and pelvis was performed with IV contrast. Automatic exposure controls were utilized to keep dose as low as reasonably achievable. FINDINGS: NECK: The mucosa of the nasopharynx, oropharynx, and hypopharynx is normal in appearance. No abnormal thickening of the epiglottis or aryepiglottic fold. No retropharyngeal fluid collection. No cervical lymphadenopathy has developed. There is a small area of induration within the subcutaneous fat in the lower left neck that corresponds to the site of previously reported enlarged lymph node. The thyroid, submandibular, and parotid glands are all normal in appearance. More conspicuous sclerotic lesion within the clivus of the skull base. Other scattered sclerotic skeletal metastases throughout the cervical spine are unchanged. CHEST: No abnormality in the trachea. No pneumonia or edema has developed. Stable ground-glass focus in the medial aspect of the right upper lobe due to a focus of atelectasis. No suspicious pulmonary nodules have developed. No pleural effusion or pneumothorax. Thyroid is normal. No axillary, mediastinal, or hilar lymphadenopathy. Heart is normal in size. Normal-caliber thoracic aorta. Numerous scattered sclerotic lesions throughout the thoracic spine, ribs, scapulae, and clavicles are all unchanged. ABDOMEN AND PELVIS: No free intraperitoneal air. A small amount of free pelvic fluid is present. A few scattered cysts throughout the liver are unchanged. No suspicious hepatic lesions have developed. Cholecystectomy with mild biliary duct dilatation due to reservoir effect. The spleen and pancreas are normal in appearance. No adrenal mass. No renal mass or obstructive uropathy. No bowel obstruction. There is again noted to be abnormal circumferential wall thickening throughout the majority of the colon, particularly in the ascending colon. No abdominal or pelvic lymphadenopathy. Normal-caliber abdominal aorta. Numerous sclerotic lesions throughout the pelvis and lumbar spine have not appreciably changed. IMPRESSION: 1. No change in widespread sclerotic metastases throughout the skeleton that could be treated metastases. 2. No new soft tissue abnormality within the neck, chest, abdomen, or pelvis to suggest disease progression. 3. Multiple sites of acute on chronic colitis are likely present. There is a small amount of free pelvic fluid, but no perforation or abscess. Dictated by: Dictated on workstation # [id number]
== END ==
LOC: RAD 09:32
PROVIDERS: ATTEND Internal Medicine Hematology & Oncology
DX: K52.89 Other specified noninfective gastroenteritis and colitis (principal); C50.919 Malignant neoplasm of unspecified site of unspecified female breast
CPT/HCPCS: 70491; 71260; 74176